=== PATIENT | female | born 1940 | race African-American/Black ===

== ENCOUNTER 2016-10-07 15:18 | Inpatient (IN) | payer MEDICARE, OTHER ==
[~2016-10-07] VITALS: Ht 170.2 cm; Wt 101.6 kg
[~2016-10-07 15:18] MED LIST: AMBIEN5 MG ORAL; ASPIR 8181 MG ORAL; DIOVAN HCT 3201 EAC1 ORAL; DOCUSATE SODIU100 M2 ORAL; FEROSUL325 M1 PO; HYDROCHLOROTHIA25 MG ORAL; JANUVIA100 MG ORAL; METFORMIN HCL1000 M1 ORAL; NORVASC10 MG ORAL; NOVOLOG MI100 UNIT/3 SQ; PREVACID30 M2 ORAL; UNOBMED; VICODIN 5-3001 EACH ORAL; ZOCOR20 M1 ORAL
[2016-10-07] MEDS ORDERED: Aspirin Baby 81mg ORAL ONE (16:00)
[2016-10-07] MEDS ORDERED: Nitroglycerin Subl 0.4mg tab (Bottle Of 25) SL PRN ×2 (16:00→18:30)
--- NOTE | 2016-10-07 16:08 | Emergency Room Report ---
History of Present Illness General Chief Complaint: Hypertension Source: Patient, EMS Present Illness HPI Patient is a 76-year-old female who presented after increased blood pressure from a doctor's office. Patient noted to have elevated blood pressure. She reported having a moderate headache. Patient states that she takes medications for blood pressure. She also is diabetic. Patient noted to have prior history of congestive heart failure. She reported having some chest pressure. Her primary care physician is Dr. Terjo. Allergies: Coded Allergies: CODEINE (Verified Allergy, Mild, Itching, 08/26/13) SULFA (SULFONAMIDE ANTIBIOTICS) (Verified Adverse Reaction, Mild, 08/26/13) VOMIT Patient History Past Medical History: see triage record Reviewed Nursing Documentation: PMH: Agreed, PSxH: Agreed Nursing Documentation-PMH Past Medical History: No History, Except For Hx Hypertension: Yes Hx Diabetes: Yes Hx Cancer: No Hx Gastrointestinal Problems: Yes Hx Neurological Problems: No Review of Systems All Other Systems: negative except mentioned in HPI Physical Exam Vital Signs Date Time Temp Pulse Resp B/P Pulse Ox O2 Delivery O2 Flow Rate FiO2 10/07/16 15:19 98.2 75 18 189/80 99 Room Air Sp02 EP Interpretation: reviewed, normal General Appearance: normal inspection, well appearing, no apparent distress, alert, GCS 15 Head: atraumatic ENT: normal ENT inspection, hearing grossly normal, normal voice Neck: normal inspection, full range of motion, supple, no bony tend Respiratory: normal inspection, lungs clear, normal breath sounds, no respiratory distress, no retraction, no wheezing Cardiovascular #1: regular rate, rhythm, no edema Gastrointestinal: normal inspection, normal bowel sounds, non tender, soft, no guarding, no hernia Genitourinary: no CVA tenderness Musculoskeletal: normal inspection, back normal, normal range of motion Neurologic: normal inspection, alert, oriented x3, responsive, 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 Differential diagnosis included but was not limited to acute coronary syndrome, pulmonary embolism, pneumonia, aortic dissection, shingles, pneumothorax, aortic dissection, esophageal rupture, pericarditis. Because of complexity of patient's case laboratory testing and imaging studies were ordered.EKG interpreted by me showed normal sinus rhythm with a rate of [address] there were [address] acute [address] or T wave changes noted. Patient noted to have onset of worsening chest pain. The patient was given Norvasc as well as nitroglycerin. The patient was also given aspirin Lasix.Dr. Emre Trejo was contacted for inpatient management Labs Test 10/07/16 16:23 White Blood Count 4.4 K/UL (4.8-10.8) Red Blood Count 3.79 M/UL (4.20-5.40) Hemoglobin 12.2 G/DL (12.0-16.0) Hematocrit 35.8 % (37.0-47.0) Mean Corpuscular Volume 94 FL (80-99) Mean Corpuscular Hemoglobin 32.1 PG (27.0-31.0) Mean Corpuscular Hemoglobin Concent 34.0 G/DL (32.0-36.0) Red Cell Distribution Width 13.1 % (11.6-14.8) Platelet Count 205 K/UL (150-450) Mean Platelet Volume 6.6 FL (6.5-10.1) Neutrophils (%) (Auto) 51.5 % (45.0-75.0) Lymphocytes (%) (Auto) 37.5 % (20.0-45.0) Monocytes (%) (Auto) 6.7 % (1.0-10.0) Eosinophils (%) (Auto) 2.7 % (0.0-3.0) Basophils (%) (Auto) 1.7 % (0.0-2.0) Prothrombin Time 9.6 SEC (9.30-11.50) Prothromb Time International Ratio 0.9 (0.9-1.1) Activated Partial Thromboplast Time 24 SEC (23-33) Sodium Level 141 mEQ/L (135-145) Potassium Level 4.4 mEQ/L (3.4-4.9) Chloride Level 99 mEQ/L (98-107) Carbon Dioxide Level 24 mEQ/L (20-30) Anion Gap 18 (5-15) Blood Urea Nitrogen 17 mg/dL (7-23) Creatinine 0.9 mg/dL (0.5-0.9) Estimat Glomerular Filtration Rate mL/min (>60) Glucose Level 184 mg/dL (74-106) Calcium Level 9.7 mg/dL (8.6-10.2) Total Bilirubin 0.2 mg/dL (0.0-1.2) Aspartate Amino Transf (AST/SGOT) 17 U/L (5-40) Alanine Aminotransferase (ALT/SGPT) 16 U/L (3-33) Alkaline Phosphatase 92 U/L (35-104) Total Creatine Kinase 121 U/L (26-140) Creatine Kinase MB 2.5 ng/mL (< 3.8) Creatine Kinase MB Relative Index 2.0 Troponin I < 0.30 ng/mL (<=0.30) Pro-B-Type Natriuretic Peptide 47 pg/mL (0-125) Total Protein 7.3 g/dL (6.6-8.7) Albumin 4.1 g/dL (3.5-5.2) Globulin 3.2 g/dL Albumin/Globulin Ratio 1.2 (1.0-2.7) EKG Diagnostic Results Rate: normal Rhythm: NSR Chest X-Ray Diagnostic Results EP Interpretation: Yes Findings: no consolidation, no effusion, no pneumothorax, no acute cardiopulmonary disease Number of Views: 1 Last Vital Signs Date Time Temp Pulse Resp B/P Pulse Ox O2 Delivery O2 Flow Rate FiO2 10/07/16 15:52 70 188/62 10/07/16 15:19 98.2 18 99 Room Air Status: unchanged Disposition: ADMITTED INPATIENT Condition: Serious Anthony Scott October 07, 2016 16:08
[2016-10-07 16:15] VITALS: BP 164/60
[2016-10-07 16:32] VITALS: BP 168/64
--- NOTE | 2016-10-07 16:52 | Diagnostic Imaging Report ---
Indication: Headache Technique: Contiguous 5 mm thick transaxial imaging of the head obtained in a Siemens Sensation [address] scanner. Soft tissue and bone windows generated. Total Dose length Product (DLP): [address] Dose Index Volume (CTDIvol): 70.38 mGy Comparison: 08/26/13 Findings: Dilatation of the lateral ventricles, fourth ventricle and third ventricle noted. Only minimal atrophy is present. Findings are unchanged from the last study. One should consider possibility of communicating hydrocephalus (NPH). There is no mass effect or edema or acute hemorrhage identified within the brain. Paranasal sinuses are clear. Impression: Disproportionate ventriculomegaly. One should consider the possibility of communicating hydrocephalus. No change compared to the previous exam The CT scanner at [facility] is accredited by the [employer] [place] [employer] and the scans are performed using dose optimization techniques as appropriate to a performed exam including Automatic Exposure control.
[2016-10-07 16:59] LABS: BASOPHILS % (AUTO) 1.7 % (0.0-2.0); EOSINOPHILS % (AUTO) 2.7 % (0.0-3.0); LYMPHOCYTES % (AUTO) 37.5 % (20.0-45.0); MEAN CORPUSCULAR HEMOGLOBIN 32.1 PG (27.0-31.0); MEAN CORPUSCULAR VOLUME 94 FL (80-99); MEAN PLATELET VOLUME 6.6 FL (6.5-10.1); MONOCYTES % (AUTO) 6.7 % (1.0-10.0); NEUTROPHILS % (AUTO) 51.5 % (45.0-75.0); PLATELET COUNT 205 K/UL (150-450); RED BLOOD COUNT 3.79 M/UL (4.20-5.40); RED CELL DISTRIBUTION WIDTH 13.1 % (11.6-14.8); WHITE BLOOD COUNT 4.4 K/UL (4.8-10.8)
[2016-10-07 17:06] LABS: INR 0.9 (0.9-1.1); PROTHROMBIN TIME 9.6 SEC (9.30-11.50)
[2016-10-07 17:11] LABS: TROPONIN I < 0.30 ng/mL (<=0.30)
[2016-10-07 17:17] LABS: ALANINE AMINOTRANSFERASE 16 U/L (3-33); ALBUMIN/GLOBULIN RATIO 1.2 (1.0-2.7); ANION GAP 18 (5-15); ASPARTATE AMINO TRANSFERASE 17 U/L (5-40); CALCIUM 9.7 mg/dL (8.6-10.2); CARBON DIOXIDE 24 mEQ/L (20-30); CHLORIDE 99 mEQ/L (98-107); CREATININE 0.9 mg/dL (0.5-0.9); HEMOLYSIS 3; POTASSIUM 4.4 mEQ/L (3.4-4.9); SODIUM 141 mEQ/L (135-145); TOTAL PROTEIN 7.3 g/dL (6.6-8.7)
[2016-10-07 17:27] LABS: CKMB 2.5 ng/mL (< 3.8)
[2016-10-07 17:30] VITALS: BP 163/76
[2016-10-07] MEDS ORDERED: DuoNeb 0.5-3(2.5)mg/3ml neb HHN PRN (18:30)
[2016-10-07] MEDS ORDERED: Diltiazem 25mg/5ml IV PRN (18:30)
[2016-10-07] MEDS ORDERED: Miralax 17gm pkt ORAL PRN (18:30)
[2016-10-07 19:00] VITALS: BP 160/66
[2016-10-07 20:17] VITALS: BP 182/80
[2016-10-07] MEDS: Enalaprilat 2.5mg/2ml Inj IV PRN (21:45)
[2016-10-07] MEDS: Heparin 5000 units/ml inj SUBQ SCH (21:48)
--- NOTE | 2016-10-07 23:49 | Consultation ---
History of Present Illness General Date patient seen: October 07, 2016 Chief Complaint: Hypertension Referring physician: dr Trejo Reason for Consultation: dyspnea Present Illness HPI 76-year-old female with hx of HTN, DM, CHF presented to ER with CC of increased blood pressure from a doctor's office. She reported having a moderate headache. Patient states that she takes medications for blood pressure. She reported having some chest pressure. Her systolic BP was 200. Her CXR showed bilateral pulmonary edema. Allergies: Coded Allergies: CODEINE (Verified Allergy, Mild, Itching, 08/26/13) SULFA (SULFONAMIDE ANTIBIOTICS) (Verified Adverse Reaction, Mild, 08/26/13) VOMIT Medication History Scheduled Amlodipine Besylate (Norvasc), 10 MG ORAL DAILY, (Reported) Aspirin* (Aspir 81*), 81 MG ORAL DAILY, (Reported) Docusate Sodium (Docusate Sodium), 100 MG ORAL BID, (Reported) Ferrous Sulfate (Ferosul), 325 MG PO BID, (Reported) Hydrochlorothiazide* (Hydrochlorothiazide*), 25 MG ORAL DAILY, (Reported) Insuln Asp Prt/Insulin Aspart (Novolog Mix 70-30 Flexpen Syrn), 40 UNIT SQ BEFORE BREAKFAST, (Reported) Insuln Asp Prt/Insulin Aspart (Novolog Mix 70-30 Flexpen Syrn), 30 UNIT SQ BEFORE DINNER, (Reported) Lansoprazole* (Prevacid*), 30 MG ORAL DAILY, (Reported) Metformin Hcl* (Metformin Hcl*), 1,000 MG ORAL TID, (Reported) Simvastatin (Zocor), 20 MG ORAL BEDTIME, (Reported) Sitagliptin (Januvia), 100 MG ORAL BEFORE BREAKFAST, (Reported) Valsartan/Hydrochlorothiazide 320-25MG (Diovan Hct 320-25 Mg Tablet), 1 TAB ORAL DAILY, (Reported) Scheduled PRN Hydrocodone Bit/Acetaminophen (Vicodin 5-300 Mg Tablet), 1 TAB ORAL Q4H PRN for For Pain, (Reported) Zolpidem Tartrate* (Ambien*), 5 MG ORAL BEDTIME PRN for Insomnia, (Reported) Miscellaneous Medications Unable to Obtain Medications (Unable To Obtain Meds), (Reported) Patient History Healthcare decision maker Resuscitation status Full Code Advanced Directive on File Past Medical/Surgical History Past Medical/Surgical History: (1) Diabetes mellitus (2) CHF (congestive heart failure) Review of Systems All Other Systems: negative except mentioned in HPI Physical Exam General Appearance: WD/WN Lines, tubes and drains: peripheral HEENT: normocephalic, atraumatic Neck: non-tender, normal alignment Respiratory/Chest: chest wall non-tender, lungs clear Cardiovascular/Chest: normal peripheral pulses, normal rate Abdomen: normal bowel sounds Genitourinary/Rectal: normal genital exam Extremities: normal range of motion, non-tender Skin Exam: normal pigmentation Last 24 Hour Vital Signs Date Time Temp Pulse Resp B/P Pulse Ox O2 Delivery O2 Flow Rate FiO2 10/07/16 21:45 181/68 10/07/16 20:17 97.0 63 19 182/80 97 Room Air 10/07/16 19:32 68 17 152/58 99 Room Air 10/07/16 19:00 97.8 88 22 160/66 100 Room Air 10/07/16 17:30 98.0 63 18 163/76 100 Room Air 10/07/16 16:32 98.0 70 18 168/64 100 Room Air 10/07/16 16:17 70 18 Room Air 98 10/07/16 16:15 98.0 70 18 164/60 100 Room Air 10/07/16 16:05 188/62 10/07/16 15:52 70 188/62 10/07/16 15:19 98.2 75 18 189/80 99 Room Air Laboratory Tests Test 10/07/16 16:23 White Blood Count 4.4 K/UL (4.8-10.8) L Red Blood Count 3.79 M/UL (4.20-5.40) L Hemoglobin 12.2 G/DL (12.0-16.0) Hematocrit 35.8 % (37.0-47.0) L Mean Corpuscular Volume 94 FL (80-99) Mean Corpuscular Hemoglobin 32.1 PG (27.0-31.0) H Mean Corpuscular Hemoglobin Concent 34.0 G/DL (32.0-36.0) Red Cell Distribution Width 13.1 % (11.6-14.8) Platelet Count 205 K/UL (150-450) Mean Platelet Volume 6.6 FL (6.5-10.1) Neutrophils (%) (Auto) 51.5 % (45.0-75.0) Lymphocytes (%) (Auto) 37.5 % (20.0-45.0) Monocytes (%) (Auto) 6.7 % (1.0-10.0) Eosinophils (%) (Auto) 2.7 % (0.0-3.0) Basophils (%) (Auto) 1.7 % (0.0-2.0) Prothrombin Time 9.6 SEC (9.30-11.50) Prothromb Time International Ratio 0.9 (0.9-1.1) Activated Partial Thromboplast Time 24 SEC (23-33) Sodium Level 141 mEQ/L (135-145) Potassium Level 4.4 mEQ/L (3.4-4.9) Chloride Level 99 mEQ/L (98-107) Carbon Dioxide Level 24 mEQ/L (20-30) Anion Gap 18 (5-15) H Blood Urea Nitrogen 17 mg/dL (7-23) Creatinine 0.9 mg/dL (0.5-0.9) Estimat Glomerular Filtration Rate mL/min (>60) Glucose Level 184 mg/dL (74-106) H Calcium Level 9.7 mg/dL (8.6-10.2) Total Bilirubin 0.2 mg/dL (0.0-1.2) Aspartate Amino Transf (AST/SGOT) 17 U/L (5-40) Alanine Aminotransferase (ALT/SGPT) 16 U/L (3-33) Alkaline Phosphatase 92 U/L (35-104) Total Creatine Kinase 121 U/L (26-140) Creatine Kinase MB 2.5 ng/mL (< 3.8) Creatine Kinase MB Relative Index 2.0 Troponin I < 0.30 ng/mL (<=0.30) Pro-B-Type Natriuretic Peptide 47 pg/mL (0-125) Total Protein 7.3 g/dL (6.6-8.7) Albumin 4.1 g/dL (3.5-5.2) Globulin 3.2 g/dL Albumin/Globulin Ratio 1.2 (1.0-2.7) Height (Feet): 5 Height (Inches): 7.00 Weight (Pounds): 232 Medications Current Medications Medications (Trade) Dose Ordered Sig/Hever Route PRN Reason Start Time Stop Time Status Last Admin Dose Admin Acetaminophen (Tylenol) 650 mg Q4H PRN ORAL FEVER 10/07/16 18:30 11/06/16 18:29 10/07/16 21:46 Albuterol/ Ipratropium (DuoNeb 0.5-3(2.5)mg/3ml) 3 ml Q4H PRN HHN Shortness of Breath 10/07/16 18:30 10/12/16 18:29 Amlodipine Besylate (Norvasc) 10 mg DAILY ORAL 10/08/16 09:00 11/07/16 08:59 Aspirin (Ecotrin) 81 mg DAILY ORAL 10/08/16 09:00 11/07/16 08:59 Diltiazem HCl (Cardizem) 10 mg Q1H PRN IV heart rate more than 120, 10/07/16 18:30 11/06/16 18:29 Enalaprilat (Vasotec) 2.5 mg Q6H PRN IV sbp more than 160 10/07/16 18:30 11/06/16 18:29 10/07/16 21:45 Furosemide (Lasix) 40 mg EVERY 8 HOURS IV 10/07/16 22:00 11/06/16 21:59 10/07/16 21:44 Heparin Sodium (Porcine) (Heparin 5000 units/ml) 5,000 units EVERY 12 HOURS SUBQ 10/07/16 21:00 11/06/16 20:59 10/07/16 21:48 Nitroglycerin (Ntg) 0.4 mg Q5M PRN SL Prn Chest Pain 10/07/16 18:30 11/06/16 18:29 Ondansetron HCl (Zofran) 4 mg Q6H PRN IVP Nausea & Vomiting 10/07/16 18:30 11/06/16 18:29 Pantoprazole (Protonix) 40 mg DAILY ORAL 10/08/16 09:00 11/07/16 08:59 Polyethylene Glycol (Miralax) 17 gm DAILYPRN PRN ORAL Constipation 10/07/16 18:30 11/06/16 18:29 Sitagliptin Phosphate (Januvia) 50 mg BEFORE BREAKFAST ORAL 10/08/16 06:30 11/07/16 06:29 Temazepam (Restoril) 15 mg HSPRN PRN ORAL Insomnia 10/07/16 18:30 10/14/16 18:29 Assessment/Plan Problem List: (1) ACS (2) Accelerated hypertension ICD Codes: I10 - Accelerated hypertension SNOMED: 41444129 (3) CHF (congestive heart failure) ICD Codes: I50.9 - Heart failure, unspecified SNOMED: 24660918 (4) Diabetes mellitus ICD Codes: E11.9 - Type 2 diabetes mellitus without complications SNOMED: 73514496 Assessment/Plan serial ekg, troponin echo cardio evaluaiton monitor BP sliding scale diuretics check electrolytes dvt prophylaxis KEYSHA MCKINNEY October 07, 2016 23:49
[2016-10-08] VITALS (8 sets, daily range): BP systolic 123–179; BP diastolic 55–79
[2016-10-08] MEDS: sitaGLIPtin 50mg tab ORAL SCH (06:27)
--- NOTE | 2016-10-08 08:34 | Diagnostic Imaging Report ---
Indication: Dyspnea Comparison: 08/26/13 A single view chest radiograph was obtained. Findings: There is a lucency at the left lung base consistent with a hiatal hernia. Surgical clips are also seen in the lower chest and upper abdomen. The heart is enlarged. Pulmonary vascularity is mildly prominent. Bones are unremarkable. Impression: Possible mild interstitial edema. Please correlate clinically. Hiatal hernia
--- NOTE | 2016-10-08 08:50 | Pulmonology Progress Note ---
Assessment/Plan Problems: (1) ACS (2) Accelerated hypertension (3) CHF (congestive heart failure) (4) Diabetes mellitus Assessment/Plan improving check echo cxr, bnp in am cardio to see sliding scale diabetic diet Subjective ROS Limited/Unobtainable: No Interval Events: dyspnea resolved, c/o head ache Allergies: Coded Allergies: CODEINE (Verified Allergy, Mild, Itching, 08/26/13) SULFA (SULFONAMIDE ANTIBIOTICS) (Verified Adverse Reaction, Mild, 08/26/13) VOMIT Objective Last 24 Hour Vital Signs Date Time Temp Pulse Resp B/P Pulse Ox O2 Delivery O2 Flow Rate FiO2 10/08/16 07:58 97.7 68 18 136/67 100 Room Air 10/08/16 06:25 98.6 10/08/16 05:34 71 148/77 Room Air 10/08/16 04:00 73 10/08/16 03:56 98.6 79 19 144/63 95 Room Air 10/08/16 01:00 135/65 10/08/16 00:07 98.3 69 18 179/79 95 Room Air 10/08/16 00:00 76 10/07/16 21:45 181/68 10/07/16 20:17 97.0 63 19 182/80 97 Room Air 10/07/16 20:00 67 10/07/16 19:32 68 17 152/58 99 Room Air 10/07/16 19:00 97.8 88 22 160/66 100 Room Air 10/07/16 17:30 98.0 63 18 163/76 100 Room Air 10/07/16 16:32 98.0 70 18 168/64 100 Room Air 10/07/16 16:17 70 18 Room Air 98 10/07/16 16:15 98.0 70 18 164/60 100 Room Air 10/07/16 16:05 188/62 10/07/16 15:52 70 188/62 10/07/16 15:19 98.2 75 18 189/80 99 Room Air General Appearance: WD/WN HEENT: normocephalic, atraumatic Respiratory/Chest: chest wall non-tender, lungs clear Cardiovascular: normal peripheral pulses, normal rate Abdomen: normal bowel sounds, no organomegaly Genitourinary: normal external genitalia Neurologic/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 normal Laboratory Tests 10/07/16 16:23: White Blood Count 4.4L, Red Blood Count 3.79L, Hemoglobin 12.2, Hematocrit 35.8L , Mean Corpuscular Volume 94, Mean Corpuscular Hemoglobin 32.1H, Mean Corpuscular Hemoglobin Concent 34.0, Red Cell Distribution Width 13.1, Platelet Count 205, Mean Platelet Volume 6.6, Neutrophils (%) (Auto) 51.5, Lymphocytes (% ) (Auto) 37.5, Monocytes (%) (Auto) 6.7, Eosinophils (%) (Auto) 2.7, Basophils ( %) (Auto) 1.7, Prothrombin Time 9.6, Prothromb Time International Ratio 0.9, Activated Partial Thromboplast Time 24, Sodium Level 141, Potassium Level 4.4, Chloride Level 99, Carbon Dioxide Level 24, Anion Gap 18H, Blood Urea Nitrogen 17, Creatinine 0.9, Estimat Glomerular Filtration Rate , Glucose Level 184H, Calcium Level 9.7, Total Bilirubin 0.2, Aspartate Amino Transf (AST/SGOT) 17, Alanine Aminotransferase (ALT/SGPT) 16, Alkaline Phosphatase 92, Total Creatine Kinase 121, Creatine Kinase MB 2.5, Creatine Kinase MB Relative Index 2.0, Troponin I < 0.30, Pro-B-Type Natriuretic Peptide 47, Total Protein 7.3, Albumin 4.1, Globulin 3.2, Albumin/Globulin Ratio 1.2 Current Medications Medications (Trade) Dose Ordered Sig/Hever Route PRN Reason Start Time Stop Time Status Last Admin Dose Admin Acetaminophen (Tylenol) 650 mg Q4H PRN ORAL FEVER 10/07/16 18:30 11/06/16 18:29 10/08/16 05:26 Albuterol/ Ipratropium (DuoNeb 0.5-3(2.5)mg/3ml) 3 ml Q4H PRN HHN Shortness of Breath 10/07/16 18:30 10/12/16 18:29 Amlodipine Besylate (Norvasc) 10 mg DAILY ORAL 10/08/16 09:00 11/07/16 08:59 Aspirin (Ecotrin) 81 mg DAILY ORAL 10/08/16 09:00 11/07/16 08:59 Diltiazem HCl (Cardizem) 10 mg Q1H PRN IV heart rate more than 120, 10/07/16 18:30 11/06/16 18:29 Enalaprilat (Vasotec) 2.5 mg Q6H PRN IV sbp more than 160 10/07/16 18:30 11/06/16 18:29 10/07/16 21:45 Furosemide (Lasix) 40 mg EVERY 8 HOURS IV 10/07/16 22:00 11/06/16 21:59 10/08/16 05:27 Heparin Sodium (Porcine) (Heparin 5000 units/ml) 5,000 units EVERY 12 HOURS SUBQ 10/07/16 21:00 11/06/16 20:59 10/07/16 21:48 Hydralazine HCl (Apresoline) 20 mg Q4H PRN IV sbp more than 180 10/07/16 23:45 11/06/16 23:44 Nitroglycerin (Ntg) 0.4 mg Q5M PRN SL Prn Chest Pain 10/07/16 18:30 11/06/16 18:29 Ondansetron HCl (Zofran) 4 mg Q6H PRN IVP Nausea & Vomiting 10/07/16 18:30 11/06/16 18:29 Pantoprazole (Protonix) 40 mg DAILY ORAL 10/08/16 09:00 11/07/16 08:59 Polyethylene Glycol (Miralax) 17 gm DAILYPRN PRN ORAL Constipation 10/07/16 18:30 11/06/16 18:29 Sitagliptin Phosphate (Januvia) 50 mg BEFORE BREAKFAST ORAL 10/08/16 06:30 11/07/16 06:29 10/08/16 06:27 Temazepam (Restoril) 15 mg HSPRN PRN ORAL Insomnia 10/07/16 18:30 10/14/16 18:29 KEYSHA MCKINNEY October 08, 2016 08:50
[2016-10-08] MEDS: Aspirin EC 81mg tab ORAL SCH (09:05)
[2016-10-08] MEDS: Heparin 5000 units/ml inj SUBQ SCH ×2 (09:09→21:20)
[2016-10-08 09:26] LABS: EOSINOPHILS % (AUTO) 2.8 % (0.0-3.0); LYMPHOCYTES % (AUTO) 37.6 % (20.0-45.0); MEAN CORPUSCULAR HEMOGLOBIN 29.1 PG (27.0-31.0); MEAN CORPUSCULAR HGB CONC 31.1 G/DL (32.0-36.0); MEAN CORPUSCULAR VOLUME 94 FL (80-99); MEAN PLATELET VOLUME 6.2 FL (6.5-10.1); MONOCYTES % (AUTO) 8.3 % (1.0-10.0); NEUTROPHILS % (AUTO) 50.3 % (45.0-75.0); PLATELET COUNT 259 K/UL (150-450); RED BLOOD COUNT 3.79 M/UL (4.20-5.40); RED CELL DISTRIBUTION WIDTH 13.2 % (11.6-14.8); WHITE BLOOD COUNT 4.1 K/UL (4.8-10.8)
[2016-10-08 09:38] LABS: PROTHROMBIN TIME 10.3 SEC (9.30-11.50)
[2016-10-08 09:40] LABS: CHOLESTEROL 148 mg/dL (< 200); CHOLESTEROL/HDL RATIO 2.7 (3.3-4.4); CRP QUANT < 0.3 mg/dL (< 0.5); HEMOLYSIS 3; LDL CHOLESTEROL (CALC.) 65 mg/dL (60-99); TROPONIN I < 0.30 ng/mL (<=0.30)
[2016-10-08 09:50] LABS: THYROID STIMULATING HORMONE 0.874 uIU/mL (0.300-4.500)
[2016-10-08] MEDS: NovoLOG Insulin Flexpen SUBQ SCH ×3 (11:40→21:19)
--- NOTE | 2016-10-08 14:14 | Cardiology Report ---
APPROVED REPORT EXAM: Two-dimensional and M-mode echocardiogram with Doppler and color Doppler. INDICATION LV function M-Mode DIMENSIONS IVSd1.5 (0.7-1.1cm)Left Atrium (MM)2.6 (1.6-4.0cm) LVDd1.9 (3.5-5.6cm)Aortic Root4.4 (2.0-3.7cm) PWd3.2 (0.7-1.1cm)Aortic Cusp Exc.2.0 (1.5-2.0cm) LVDs1.7 (2.5-4.0cm) PWs2.1 cm Technically difficult study due to poor acoustical windows. Normal left ventricular chamber size, systolic function and wall motion to extent visualized. Left ventricular ejection fraction estimated to be 65 %. Mild left ventricular hypertrophy. Anterior Echo-free space, may be due to pericardial fat or effusion. Mild bi-atrial enlargement. Right ventricular chamber size is within normal limits. Focal aortic valve sclerosis with adequate cusp excursion. Thickened mitral valve leaflets with normal excursion. Mitral annulus and aortic root calcification. Pulmonic valve not well visualized. Normal tricuspid valve structure. IVC at normal size with physiologic collapse. A color flow and spectral Doppler study was performed and revealed: Trace mitral regurgitation. Mitral diastolic velocities suggest reduced left ventricular relaxation c/w mild LV diastolic dysfunction (Grade I). Trace tricuspid regurgitation. Tricuspid systolic velocities suggests peak right ventricular systolic pressure of 16 mmHg.
--- NOTE | 2016-10-08 14:26 | Cardiology Report ---
APPROVED REPORT EKG Measurement Heart [id number] Normal sinus rhythm with sinus arrhythmia Possible Left atrial enlargement Borderline ECG
--- NOTE | 2016-10-08 16:13 | History & Physical ---
History and Physical History & Physicial Dictated for Int Med-Dr Trejo no. [id number]. MIGNON FERRELL October 08, 2016 16:13
--- NOTE | 2016-10-08 20:39 | Cardiology Progress Note ---
Assessment/Plan Assessment/Plan The patient is seen and examined, full consult note is dictated. Objective Last 24 Hour Vital Signs Date Time Temp Pulse Resp B/P Pulse Ox O2 Delivery O2 Flow Rate FiO2 10/08/16 16:09 97.0 62 18 131/65 96 Room Air 10/08/16 16:00 64 10/08/16 12:00 69 10/08/16 11:56 97.5 67 18 145/55 96 Room Air 10/08/16 09:06 68 136/67 10/08/16 08:00 62 10/08/16 07:58 97.7 68 18 136/67 100 Room Air 10/08/16 06:25 98.6 10/08/16 05:34 71 148/77 Room Air 10/08/16 04:00 73 10/08/16 03:56 98.6 79 19 144/63 95 Room Air 10/08/16 01:00 135/65 10/08/16 00:07 98.3 69 18 179/79 95 Room Air 10/08/16 00:00 76 10/07/16 21:45 181/68 Intake and Output 10/07/16 10/08/16 19:00 07:00 # Voids 2 2 # Bowel Movements 3 Laboratory Tests Test 10/08/16 09:10 White Blood Count 4.1 K/UL (4.8-10.8) L Red Blood Count 3.79 M/UL (4.20-5.40) L Hemoglobin 11.0 G/DL (12.0-16.0) L Hematocrit 35.5 % (37.0-47.0) L Mean Corpuscular Volume 94 FL (80-99) Mean Corpuscular Hemoglobin 29.1 PG (27.0-31.0) Mean Corpuscular Hemoglobin Concent 31.1 G/DL (32.0-36.0) L Red Cell Distribution Width 13.2 % (11.6-14.8) Platelet Count 259 K/UL (150-450) Mean Platelet Volume 6.2 FL (6.5-10.1) L Neutrophils (%) (Auto) 50.3 % (45.0-75.0) Lymphocytes (%) (Auto) 37.6 % (20.0-45.0) Monocytes (%) (Auto) 8.3 % (1.0-10.0) Eosinophils (%) (Auto) 2.8 % (0.0-3.0) Basophils (%) (Auto) 1.0 % (0.0-2.0) Prothrombin Time 10.3 SEC (9.30-11.50) Prothromb Time International Ratio 1.0 (0.9-1.1) Activated Partial Thromboplast Time 26 SEC (23-33) Troponin I < 0.30 ng/mL (<=0.30) C-Reactive Protein, Quantitative < 0.3 mg/dL (< 0.5) Triglycerides Level 139 mg/dL (< 150) Cholesterol Level 148 mg/dL (< 200) LDL Cholesterol 65 mg/dL (60-99) HDL Cholesterol 55 mg/dL (> 60) Cholesterol/HDL Ratio 2.7 (3.3-4.4) L Thyroid Stimulating Hormone (TSH) 0.874 uIU/mL (0.300-4.500) DHAVAL CHRISTIANSON October 08, 2016 20:39
[2016-10-08] MEDS ORDERED: Ketorolac 30mg Inj IV PRN (21:45)
--- NOTE | 2016-10-08 22:31 | History and Physical Report ---
DATE OF ADMISSION: 10/07/[address] Trejo. CHIEF COMPLAINT: The patient is a 76-year-old female, presents with chief complaint of elevated blood pressure. HISTORY OF PRESENT ILLNESS: The patient states that she has been under a lot of stress at home. The patient takes blood pressure medications, however, she is not sure of the name or the dosages. The patient presented to Ear, Nose and Throat appointment. The patient was found to have blood pressure elevated to 205/90. The patient presented to [place] emergency room. The patient was admitted for uncontrolled hypertension. PAST MEDICAL HISTORY: Significant for 1. Hypertension. 2. Diabetes type 2. 3. Degenerative disk disease of the lumbar spine. 4. Radiculopathy. 5. Gastroesophageal reflux disease. 6. Morbid obesity. 7. History of duodenal ulcer. PAST SURGICAL HISTORY: Significant for 1. Cholecystectomy. 2. Appendectomy. 3. Hiatal hernia repair. 4. Vagotomy. 5. Total hysterectomy. MEDICATIONS: Current medications 1. Amlodipine 10 mg one tablet p.o. daily. 2. Aspirin 81 mg one tablet p.o. daily. 3. Iron sulfate 325 mg one tablet p.o. daily. 4. Hydrochlorothiazide 25 mg one tablet p.o. daily. 5. Vicodin 5/300 mg one tablet p.o. q.4 h. p.r.n. pain. 6. NovoLog 70/30, 40 units subcutaneously every morning. 7. Prevacid 30 mg one tablet p.o. daily. 8. Metformin 1000 mg one tablet p.o. twice daily. 9. Simvastatin 20 mg one tablet p.o. at bedtime. 10. Januvia 100 mg one tablet p.o. every morning. 11. Valsartan/hydrochlorothiazide 320/25 mg one tablet p.o. daily. ALLERGIES: Codeine and sulfa. SOCIAL HISTORY: The patient is a . The patient denies tobacco or alcohol use. PHYSICAL EXAMINATION: GENERAL: The patient is well developed and well nourished, slightly obese female, in no apparent distress. VITAL SIGNS: Temperature 98.6 degrees, respirations 18, pulse 69, and blood pressure 179/79. HEENT: Eyes, pupils are equal and responsive to light and accommodation. Extraocular movements are intact. NECK: Supple without lymphadenopathy. CHEST: Lungs are clear to auscultation bilaterally without wheezes or rales. CARDIOVASCULAR: Regular rate. S1 and S2 normal without murmurs, rubs, or gallops. ABDOMEN: Soft, nontender, and nondistended. Positive bowel sounds. No evidence of hepatosplenomegaly. Currently, no rebound or guarding. EXTREMITIES: There is no clubbing, cyanosis, or edema. RECTAL/GENITAL: Refused. NEUROLOGIC: Cranial nerves II through XII are grossly intact without focal deficits. Motor strength is 5/5 bilaterally. Deep tendon reflexes are 2+ plantar. LABORATORY AND DIAGNOSTIC DATA: WBC 4.4, hemoglobin 12.2, hematocrit 35.8, and platelets 205,000. Sodium 141, potassium 4.4, chloride 99, CO2 24, BUN 17, creatinine 0.9 and glucose 184. Troponin less than 0.3. ASSESSMENT: This is a 76-year-old female 1. Uncontrolled hypertension. 2. Diabetes type 2. 3. Degenerative disc disease of spine. 4. Radiculopathy of the lumbar spine. 5. Gastroesophageal reflux disease. 6. Morbid obesity. 7. History of duodenal ulcer. TREATMENT: 1. Uncontrolled hypertension. Cardiology consultation per Dr. Seun Kaye. The patient's elevated blood pressure may be secondary to stress versus uncontrolled hypertension. The patient will be started on her usual antihypertensive medications. We will follow recommendation of Cardiology. 2. Diabetes type 2. The patient has been placed on a NovoLog sliding scale. 3. Degenerative disc disease of the spine. 4. Radiculopathy. 5. Gastroesophageal reflux disease. 6. Morbid obesity. 7. History of peptic ulcer disease. Isael Hutton M.D. DR: DANDRE JOB#: [id number] CC:
[2016-10-09] VITALS: BP 116/55
[2016-10-09] MEDS: NovoLOG Insulin Flexpen SUBQ SCH ×4 (00:02→16:49)
[2016-10-09 04:00] VITALS: BP 131/56
[2016-10-09] MEDS: sitaGLIPtin 50mg tab ORAL SCH (05:56)
[2016-10-09 07:55] VITALS: BP 138/71
[2016-10-09 08:18] LABS: BASOPHILS % (AUTO) 0.8 % (0.0-2.0); EOSINOPHILS % (AUTO) 4.4 % (0.0-3.0); LYMPHOCYTES % (AUTO) 37.2 % (20.0-45.0); MEAN CORPUSCULAR HEMOGLOBIN 29.3 PG (27.0-31.0); MEAN CORPUSCULAR HGB CONC 31.5 G/DL (32.0-36.0); MEAN CORPUSCULAR VOLUME 93 FL (80-99); MEAN PLATELET VOLUME 6.4 FL (6.5-10.1); MONOCYTES % (AUTO) 8.6 % (1.0-10.0); NEUTROPHILS % (AUTO) 49.1 % (45.0-75.0); PLATELET COUNT 278 K/UL (150-450); RED BLOOD COUNT 4.12 M/UL (4.20-5.40); RED CELL DISTRIBUTION WIDTH 12.9 % (11.6-14.8); WHITE BLOOD COUNT 4.2 K/UL (4.8-10.8)
[2016-10-09 08:37] LABS: ALANINE AMINOTRANSFERASE 16 U/L (3-33); ANION GAP 15 (5-15); ASPARTATE AMINO TRANSFERASE 17 U/L (5-40); CALCIUM 9.5 mg/dL (8.6-10.2); CARBON DIOXIDE 27 mEQ/L (20-30); CHLORIDE 95 mEQ/L (98-107); CREATININE 1.2 mg/dL (0.5-0.9); HEMOLYSIS 1; SODIUM 137 mEQ/L (135-145); TOTAL PROTEIN 7.1 g/dL (6.6-8.7); TROPONIN I < 0.30 ng/mL (<=0.30)
[2016-10-09] MEDS: Aspirin EC 81mg tab ORAL SCH (08:52)
[2016-10-09] MEDS: Heparin 5000 units/ml inj SUBQ SCH ×2 (08:54→23:56)
--- NOTE | 2016-10-09 11:26 | Diagnostic Imaging Report ---
Indication: Dyspnea Comparison: 10/07/16 A single view chest radiograph was obtained. Findings: Hiatal hernia is present. The heart is enlarged. Lungs are clear. Bones are unremarkable. Surgical clips in the upper abdomen noted. Impression: Hiatal hernia. No acute findings
[2016-10-09 11:50] VITALS: BP 160/71
--- NOTE | 2016-10-09 12:06 | Internal Med Progress Note ---
Subjective Date of Service: October 09, 2016 Physician Name Mignon Ferrell Attending Physician Emre Trejo MD Current Medications Medications (Trade) Dose Ordered Sig/Hever Route PRN Reason Start Time Stop Time Status Last Admin Dose Admin Acetaminophen (Tylenol) 650 mg Q4H PRN ORAL FEVER 10/07/16 18:30 11/06/16 18:29 10/08/16 05:26 Albuterol/ Ipratropium (DuoNeb 0.5-3(2.5)mg/3ml) 3 ml Q4H PRN HHN Shortness of Breath 10/07/16 18:30 10/12/16 18:29 Amlodipine Besylate (Norvasc) 10 mg DAILY ORAL 10/08/16 09:00 11/07/16 08:59 10/09/16 08:53 Aspirin (Ecotrin) 81 mg DAILY ORAL 10/08/16 09:00 11/07/16 08:59 10/09/16 08:52 Dextrose (Dextrose 50%) STAT PRN IV Hypoglycemia 10/08/16 09:00 11/07/16 08:59 Diltiazem HCl (Cardizem) 10 mg Q1H PRN IV heart rate more than 120, 10/07/16 18:30 11/06/16 18:29 Enalaprilat (Vasotec) 2.5 mg Q6H PRN IV sbp more than 160 10/07/16 18:30 11/06/16 18:29 10/07/16 21:45 Furosemide (Lasix) 40 mg EVERY 8 HOURS IV 10/07/16 22:00 11/06/16 21:59 10/09/16 05:56 Heparin Sodium (Porcine) (Heparin 5000 units/ml) 5,000 units EVERY 12 HOURS SUBQ 10/07/16 21:00 11/06/16 20:59 10/09/16 08:54 Hydralazine HCl (Apresoline) 20 mg Q4H PRN IV sbp more than 180 10/07/16 23:45 11/06/16 23:44 Ibuprofen (Advil) 400 mg Q8H PRN ORAL Mild Pain (Pain Scale 1-3) 10/09/16 07:26 11/07/16 13:14 Insulin Aspart (NovoLOG) BEFORE MEALS AND HS SUBQ 10/08/16 11:30 11/07/16 11:29 10/09/16 06:02 Ketorolac Tromethamine (Toradol 30mg) 15 mg Q8HR PRN IV Moderate Pain (Pain Scale 4-6) 10/08/16 21:45 10/13/16 21:44 Nitroglycerin (Ntg) 0.4 mg Q5M PRN SL Prn Chest Pain 10/07/16 18:30 11/06/16 18:29 Ondansetron HCl (Zofran) 4 mg Q6H PRN IVP Nausea & Vomiting 10/07/16 18:30 11/06/16 18:29 Pantoprazole (Protonix) 40 mg DAILY ORAL 10/08/16 09:00 11/07/16 08:59 10/09/16 08:53 Polyethylene Glycol (Miralax) 17 gm DAILYPRN PRN ORAL Constipation 10/07/16 18:30 11/06/16 18:29 10/09/16 05:55 Sitagliptin Phosphate (Januvia) 50 mg BEFORE BREAKFAST ORAL 10/08/16 06:30 11/07/16 06:29 10/09/16 05:56 Temazepam (Restoril) 15 mg HSPRN PRN ORAL Insomnia 10/07/16 18:30 10/14/16 18:29 Allergies: Coded Allergies: CODEINE (Verified Allergy, Mild, Itching, 08/26/13) SULFA (SULFONAMIDE ANTIBIOTICS) (Verified Adverse Reaction, Mild, 08/26/13) VOMIT ROS Limited/Unobtainable: No Constitutional: Reports: no symptoms HEENT: Reports: no symptoms Cardiovascular: Reports: no symptoms Respiratory: Reports: no symptoms Gastrointestinal/Abdominal: Reports: no symptoms Genitourinary: Reports: no symptoms Neurologic/Psychiatric: Reports: no symptoms Subjective 76 YO F admitted with uncontrolled hypertension. Cover for Molly Del Rio-Dr Trejo. Objective Last Vital Signs Date Time Temp Pulse Resp B/P Pulse Ox O2 Delivery O2 Flow Rate FiO2 10/09/16 11:50 97.7 63 18 160/71 99 Room Air 10/07/16 16:17 98 Laboratory Tests Test 10/09/16 08:00 White Blood Count 4.2 K/UL (4.8-10.8) L Red Blood Count 4.12 M/UL (4.20-5.40) L Hemoglobin 12.1 G/DL (12.0-16.0) Hematocrit 38.4 % (37.0-47.0) Mean Corpuscular Volume 93 FL (80-99) Mean Corpuscular Hemoglobin 29.3 PG (27.0-31.0) Mean Corpuscular Hemoglobin Concent 31.5 G/DL (32.0-36.0) L Red Cell Distribution Width 12.9 % (11.6-14.8) Platelet Count 278 K/UL (150-450) Mean Platelet Volume 6.4 FL (6.5-10.1) L Neutrophils (%) (Auto) 49.1 % (45.0-75.0) Lymphocytes (%) (Auto) 37.2 % (20.0-45.0) Monocytes (%) (Auto) 8.6 % (1.0-10.0) Eosinophils (%) (Auto) 4.4 % (0.0-3.0) H Basophils (%) (Auto) 0.8 % (0.0-2.0) Sodium Level 137 mEQ/L (135-145) Potassium Level 4.0 mEQ/L (3.4-4.9) Chloride Level 95 mEQ/L (98-107) L Carbon Dioxide Level 27 mEQ/L (20-30) Anion Gap 15 (5-15) Blood Urea Nitrogen 23 mg/dL (7-23) Creatinine 1.2 mg/dL (0.5-0.9) H Estimat Glomerular Filtration Rate mL/min (>60) Glucose Level 299 mg/dL (74-106) H Calcium Level 9.5 mg/dL (8.6-10.2) Magnesium Level 1.6 mg/dL (1.7-2.5) L Total Bilirubin 0.3 mg/dL (0.0-1.2) Aspartate Amino Transf (AST/SGOT) 17 U/L (5-40) Alanine Aminotransferase (ALT/SGPT) 16 U/L (3-33) Alkaline Phosphatase 78 U/L (35-104) Troponin I < 0.30 ng/mL (<=0.30) Pro-B-Type Natriuretic Peptide 20 pg/mL (0-125) Total Protein 7.1 g/dL (6.6-8.7) Albumin 3.7 g/dL (3.5-5.2) Globulin 3.4 g/dL Albumin/Globulin Ratio 1.0 (1.0-2.7) Intake and Output 10/08/16 10/09/16 19:00 07:00 Intake Total 600 ml 360 ml Output Total 1250 ml Balance -650 ml 360 ml Intake Oral 600 ml 360 ml Output Urine Total 1250 ml Objective General: obese; alert, cooperative, no distress, appears stated age Head: normocephalic, without obvious abnormality, atraumatic Eyes: conjunctivae/corneas clear. PERRL, EOM's intact Throat: lips, mucosa, and tongue normal. MMM Neck: supple, symmetrical, trachea midline, and no JVD Lungs: clear to auscultation bilaterally Heart: regular rate and rhythm, S1, S2 normal, no murmur, click, rub or gallop Abdomen: soft, non-tender, non-distended, bowel sounds normal; no masses or organomegaly Extremities: extremities normal, atraumatic, no cyanosis or edema Pulses: 2+ and symmetric Skin: skin color, texture, turgor normal; no rashes or lesions Neurologic: grossly normal, no focal deficits Assessment/Plan Problem List: (1) PUD (peptic ulcer disease) (2) GERD (gastroesophageal reflux disease) Assessment & Plan: Cont protonix. (3) DDD (degenerative disc disease), lumbar (4) Radiculopathy of lumbar region (5) Accelerated hypertension Assessment & Plan: Cont hydralazine, cardizem and norvasc per cardiology. (6) Diabetes mellitus Assessment & Plan: Continue novolog sliding scale and januvia Status: progressing MIGNON FERRELL October 09, 2016 12:06
[2016-10-09] MEDS: Enalaprilat 2.5mg/2ml Inj IV PRN (12:09)
--- NOTE | 2016-10-09 12:52 | Pulmonology Progress Note ---
Assessment/Plan Problems: (1) ACS (2) Accelerated hypertension (3) CHF (congestive heart failure) (4) Diabetes mellitus Assessment/Plan improving diuresing well cxr reviewed, much improved check echo cxr, bnp in am cardio to see sliding scale diabetic diet Subjective ROS Limited/Unobtainable: No Interval Events: still has headache Allergies: Coded Allergies: CODEINE (Verified Allergy, Mild, Itching, 08/26/13) SULFA (SULFONAMIDE ANTIBIOTICS) (Verified Adverse Reaction, Mild, 08/26/13) VOMIT Objective Last 24 Hour Vital Signs Date Time Temp Pulse Resp B/P Pulse Ox O2 Delivery O2 Flow Rate FiO2 10/09/16 12:09 160/71 10/09/16 11:50 97.7 63 18 160/71 99 Room Air 10/09/16 08:53 71 138/71 10/09/16 08:00 72 10/09/16 07:55 97.3 71 18 138/71 100 Room Air 10/09/16 04:00 61 10/09/16 04:00 97.2 65 19 131/56 98 Room Air 10/09/16 00:00 97.3 64 20 116/55 98 Nasal Cannula 10/09/16 00:00 66 10/08/16 20:00 96.6 75 18 123/65 98 Room Air 10/08/16 20:00 70 10/08/16 16:09 97.0 62 18 131/65 96 Room Air 10/08/16 16:00 64 Intake and Output 10/08/16 10/09/16 19:00 07:00 Intake Total 600 ml 360 ml Output Total 1250 ml Balance -650 ml 360 ml Intake Oral 600 ml 360 ml Output Urine Total 1250 ml General Appearance: WD/WN HEENT: normocephalic, atraumatic Respiratory/Chest: chest wall non-tender, lungs clear Cardiovascular: normal peripheral pulses, normal rate Abdomen: normal bowel sounds, soft, non tender Extremities: no cyanosis Neurologic/Psychiatric: 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-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 grossly normal Lymphatic: no neck adenopathy Laboratory Tests 10/09/16 08:00: White Blood Count 4.2L, Red Blood Count 4.12L, Hemoglobin 12.1, Hematocrit 38.4 , Mean Corpuscular Volume 93, Mean Corpuscular Hemoglobin 29.3, Mean Corpuscular Hemoglobin Concent 31.5L, Red Cell Distribution Width 12.9, Platelet Count 278, Mean Platelet Volume 6.4L, Neutrophils (%) (Auto) 49.1, Lymphocytes (%) (Auto) 37.2, Monocytes (%) (Auto) 8.6, Eosinophils (%) (Auto) 4.4H, Basophils (%) (Auto) 0.8, Sodium Level 137, Potassium Level 4.0, Chloride Level 95L, Carbon Dioxide Level 27, Anion Gap 15, Blood Urea Nitrogen 23, Creatinine 1.2H, Estimat Glomerular Filtration Rate , Glucose Level 299H, Calcium Level 9.5, Magnesium Level 1.6L, Total Bilirubin 0.3, Aspartate Amino Transf (AST/SGOT) 17, Alanine Aminotransferase (ALT/SGPT) 16, Alkaline Phosphatase 78, Troponin I < 0.30, Pro-B-Type Natriuretic Peptide 20, Total Protein 7.1, Albumin 3.7, Globulin 3.4, Albumin/Globulin Ratio 1.0 Current Medications Medications (Trade) Dose Ordered Sig/Hever Route PRN Reason Start Time Stop Time Status Last Admin Dose Admin Acetaminophen (Tylenol) 650 mg Q4H PRN ORAL FEVER 10/07/16 18:30 11/06/16 18:29 10/08/16 05:26 Albuterol/ Ipratropium (DuoNeb 0.5-3(2.5)mg/3ml) 3 ml Q4H PRN HHN Shortness of Breath 10/07/16 18:30 10/12/16 18:29 Amlodipine Besylate (Norvasc) 10 mg DAILY ORAL 10/08/16 09:00 11/07/16 08:59 10/09/16 08:53 Aspirin (Ecotrin) 81 mg DAILY ORAL 10/08/16 09:00 11/07/16 08:59 10/09/16 08:52 Dextrose (Dextrose 50%) STAT PRN IV Hypoglycemia 10/08/16 09:00 11/07/16 08:59 Diltiazem HCl (Cardizem) 10 mg Q1H PRN IV heart rate more than 120, 10/07/16 18:30 11/06/16 18:29 Enalaprilat (Vasotec) 2.5 mg Q6H PRN IV sbp more than 160 10/07/16 18:30 11/06/16 18:29 10/09/16 12:09 Furosemide (Lasix) 40 mg EVERY 8 HOURS IV 10/07/16 22:00 11/06/16 21:59 10/09/16 05:56 Heparin Sodium (Porcine) (Heparin 5000 units/ml) 5,000 units EVERY 12 HOURS SUBQ 10/07/16 21:00 11/06/16 20:59 10/09/16 08:54 Hydralazine HCl (Apresoline) 20 mg Q4H PRN IV sbp more than 180 10/07/16 23:45 11/06/16 23:44 Ibuprofen (Advil) 400 mg Q8H PRN ORAL Mild Pain (Pain Scale 1-3) 10/09/16 07:26 11/07/16 13:14 Insulin Aspart (NovoLOG) BEFORE MEALS AND HS SUBQ 10/08/16 11:30 11/07/16 11:29 10/09/16 12:10 Ketorolac Tromethamine (Toradol 30mg) 15 mg Q8HR PRN IV Moderate Pain (Pain Scale 4-6) 10/08/16 21:45 10/13/16 21:44 Nitroglycerin (Ntg) 0.4 mg Q5M PRN SL Prn Chest Pain 10/07/16 18:30 11/06/16 18:29 Ondansetron HCl (Zofran) 4 mg Q6H PRN IVP Nausea & Vomiting 10/07/16 18:30 11/06/16 18:29 Pantoprazole (Protonix) 40 mg DAILY ORAL 10/08/16 09:00 11/07/16 08:59 10/09/16 08:53 Polyethylene Glycol (Miralax) 17 gm DAILYPRN PRN ORAL Constipation 10/07/16 18:30 11/06/16 18:29 10/09/16 05:55 Sitagliptin Phosphate (Januvia) 50 mg BEFORE BREAKFAST ORAL 10/08/16 06:30 11/07/16 06:29 10/09/16 05:56 Temazepam (Restoril) 15 mg HSPRN PRN ORAL Insomnia 10/07/16 18:30 10/14/16 18:29 KEYSHA MCKINNEY October 09, 2016 12:52
[2016-10-09 15:42] VITALS: BP 112/57
[2016-10-09 19:49] VITALS: BP 125/63
[2016-10-09] MEDS ORDERED: Nitroglycerin Subl 0.4mg tab (Bottle Of 25) SL PRN (20:15)
[2016-10-09] MEDS ORDERED: Diltiazem 25mg/5ml IV PRN (20:30)
[2016-10-09] MEDS ORDERED: Ketorolac 30mg Inj IV PRN (21:00)
[2016-10-09] MEDS ORDERED: DuoNeb 0.5-3(2.5)mg/3ml neb HHN PRN (21:00)
[2016-10-09] MEDS ORDERED: Enalaprilat 2.5mg/2ml Inj IV PRN (21:00)
--- NOTE | 2016-10-09 23:56 | Cardiology Progress Note ---
Assessment/Plan Assessment/Plan The patient is seen and examined, full consult note is dictated. Objective Last 24 Hour Vital Signs Date Time Temp Pulse Resp B/P Pulse Ox O2 Delivery O2 Flow Rate FiO2 10/09/16 19:49 98.5 71 19 125/63 98 Room Air 10/09/16 16:00 76 10/09/16 15:42 97.0 68 18 112/57 97 Room Air 10/09/16 12:09 160/71 10/09/16 12:00 69 10/09/16 11:50 97.7 63 18 160/71 99 Room Air 10/09/16 08:53 71 138/71 10/09/16 08:00 72 10/09/16 07:55 97.3 71 18 138/71 100 Room Air 10/09/16 04:00 61 10/09/16 04:00 97.2 65 19 131/56 98 Room Air 10/09/16 00:00 97.3 64 20 116/55 98 Nasal Cannula 10/09/16 00:00 66 Intake and Output 10/08/16 10/09/16 19:00 07:00 Intake Total 600 ml 360 ml Output Total 1250 ml Balance -650 ml 360 ml Intake Oral 600 ml 360 ml Output Urine Total 1250 ml Laboratory Tests Test 10/09/16 08:00 White Blood Count 4.2 K/UL (4.8-10.8) L Red Blood Count 4.12 M/UL (4.20-5.40) L Hemoglobin 12.1 G/DL (12.0-16.0) Hematocrit 38.4 % (37.0-47.0) Mean Corpuscular Volume 93 FL (80-99) Mean Corpuscular Hemoglobin 29.3 PG (27.0-31.0) Mean Corpuscular Hemoglobin Concent 31.5 G/DL (32.0-36.0) L Red Cell Distribution Width 12.9 % (11.6-14.8) Platelet Count 278 K/UL (150-450) Mean Platelet Volume 6.4 FL (6.5-10.1) L Neutrophils (%) (Auto) 49.1 % (45.0-75.0) Lymphocytes (%) (Auto) 37.2 % (20.0-45.0) Monocytes (%) (Auto) 8.6 % (1.0-10.0) Eosinophils (%) (Auto) 4.4 % (0.0-3.0) H Basophils (%) (Auto) 0.8 % (0.0-2.0) Sodium Level 137 mEQ/L (135-145) Potassium Level 4.0 mEQ/L (3.4-4.9) Chloride Level 95 mEQ/L (98-107) L Carbon Dioxide Level 27 mEQ/L (20-30) Anion Gap 15 (5-15) Blood Urea Nitrogen 23 mg/dL (7-23) Creatinine 1.2 mg/dL (0.5-0.9) H Estimat Glomerular Filtration Rate mL/min (>60) Glucose Level 299 mg/dL (74-106) H Calcium Level 9.5 mg/dL (8.6-10.2) Magnesium Level 1.6 mg/dL (1.7-2.5) L Total Bilirubin 0.3 mg/dL (0.0-1.2) Aspartate Amino Transf (AST/SGOT) 17 U/L (5-40) Alanine Aminotransferase (ALT/SGPT) 16 U/L (3-33) Alkaline Phosphatase 78 U/L (35-104) Troponin I < 0.30 ng/mL (<=0.30) Pro-B-Type Natriuretic Peptide 20 pg/mL (0-125) Total Protein 7.1 g/dL (6.6-8.7) Albumin 3.7 g/dL (3.5-5.2) Globulin 3.4 g/dL Albumin/Globulin Ratio 1.0 (1.0-2.7) DHAVAL CHRISTIANSON October 09, 2016 23:56
[2016-10-10] VITALS: BP 116/49
[2016-10-10 04:00] VITALS: BP 122/59
[2016-10-10] MEDS: sitaGLIPtin 50mg tab ORAL SCH (06:41)
[2016-10-10] MEDS: NovoLOG Insulin Flexpen SUBQ SCH ×4 (06:41→21:33)
[2016-10-10 07:22] LABS: BASOPHILS % (AUTO) 1.3 % (0.0-2.0); LYMPHOCYTES % (AUTO) 41.7 % (20.0-45.0); MEAN CORPUSCULAR HEMOGLOBIN 28.8 PG (27.0-31.0); MEAN CORPUSCULAR HGB CONC 30.6 G/DL (32.0-36.0); MEAN CORPUSCULAR VOLUME 94 FL (80-99); MEAN PLATELET VOLUME 6.7 FL (6.5-10.1); MONOCYTES % (AUTO) 11.1 % (1.0-10.0); PLATELET COUNT 248 K/UL (150-450); RED BLOOD COUNT 3.91 M/UL (4.20-5.40); RED CELL DISTRIBUTION WIDTH 13.4 % (11.6-14.8); WHITE BLOOD COUNT 4.1 K/UL (4.8-10.8)
[2016-10-10 07:36] LABS: ANION GAP 14 (5-15); CALCIUM 9.2 mg/dL (8.6-10.2); CARBON DIOXIDE 28 mEQ/L (20-30); CHLORIDE 98 mEQ/L (98-107); CREATININE 1.3 mg/dL (0.5-0.9); HEMOLYSIS 1; POTASSIUM 4.5 mEQ/L (3.4-4.9); SODIUM 140 mEQ/L (135-145)
[2016-10-10 08:14] VITALS: BP 136/75
[2016-10-10] MEDS ORDERED: Tubing IV Secondary IV ONE ×2 (09:31→22:31)
[2016-10-10] MEDS ORDERED: NS 275ml ONE ×2 (09:31→22:31)
[2016-10-10] MEDS: Aspirin EC 81mg tab ORAL SCH (10:14)
[2016-10-10] MEDS: Heparin 5000 units/ml inj SUBQ SCH ×2 (10:15→21:32)
[2016-10-10 11:54] VITALS: BP 141/67
--- NOTE | 2016-10-10 15:30 | Pulmonology Progress Note ---
Assessment/Plan Problems: (1) ACS (2) Accelerated hypertension (3) CHF (congestive heart failure) (4) Diabetes mellitus Assessment/Plan improving diuresing well echo checked, EF of 60p% cardio f/u sliding scale diabetic diet stop lasix, watch bun creatinine dc planning Subjective ROS Limited/Unobtainable: No Interval Events: no new complains Allergies: Coded Allergies: CODEINE (Verified Allergy, Mild, Itching, 08/26/13) SULFA (SULFONAMIDE ANTIBIOTICS) (Verified Adverse Reaction, Mild, 08/26/13) VOMIT Objective Last 24 Hour Vital Signs Date Time Temp Pulse Resp B/P Pulse Ox O2 Delivery O2 Flow Rate FiO2 10/10/16 11:54 97.5 86 18 141/67 94 Room Air 10/10/16 10:43 97.5 10/10/16 10:14 65 136/75 10/10/16 08:59 97.5 10/10/16 08:14 97.5 65 15 136/75 97 Room Air 10/10/16 04:00 97.9 62 20 122/59 97 Room Air 10/10/16 00:00 97.9 70 20 116/49 97 Room Air 10/09/16 19:49 98.5 71 19 125/63 98 Room Air 10/09/16 16:00 76 10/09/16 15:42 97.0 68 18 112/57 97 Room Air Intake and Output 10/09/16 10/10/16 19:00 07:00 Intake Total 720 ml 350 ml Output Total 900 ml Balance -180 ml 350 ml Intake Oral 720 ml Other 350 ml Output Urine Total 900 ml # Voids 2 Objective General Appearance: WD/WN HEENT: normocephalic, atraumatic Respiratory/Chest: chest wall non-tender, lungs clear Cardiovascular: normal peripheral pulses, normal rate Abdomen: normal bowel sounds, soft, non tender Extremities: no cyanosis Neurologic/Psychiatric: spray blender II-XII grossly normal Lymphatic: no neck adenopathy Laboratory Tests 10/10/16 06:10: White Blood Count 4.1L, Red Blood Count 3.91L, Hemoglobin 11.3L, Hematocrit 36.7L, Mean Corpuscular Volume 94, Mean Corpuscular Hemoglobin 28.8, Mean Corpuscular Hemoglobin Concent 30.6L, Red Cell Distribution Width 13.4, Platelet Count 248, Mean Platelet Volume 6.7, Neutrophils (%) (Auto) 41.0L, Lymphocytes (%) (Auto) 41.7, Monocytes (%) (Auto) 11.1H, Eosinophils (%) (Auto) 5.0H, Basophils (%) (Auto) 1.3, Sodium Level 140, Potassium Level 4.5, Chloride Level 98, Carbon Dioxide Level 28, Anion Gap 14, Blood Urea Nitrogen 30H, Creatinine 1.3H, Estimat Glomerular Filtration Rate , Glucose Level 332H, Calcium Level 9.2, Pro-B-Type Natriuretic Peptide 14 Current Medications Medications (Trade) Dose Ordered Sig/Hever Route PRN Reason Start Time Stop Time Status Last Admin Dose Admin Acetaminophen (Tylenol) 650 mg Q4H PRN ORAL FEVER 10/09/16 21:00 11/08/16 20:59 Albuterol/ Ipratropium (DuoNeb 0.5-3(2.5)mg/3ml) 3 ml Q4H PRN HHN Shortness of Breath 10/09/16 21:00 10/14/16 20:59 Amlodipine Besylate (Norvasc) 10 mg DAILY ORAL 10/10/16 09:00 11/09/16 08:59 10/10/16 10:14 Aspirin (Ecotrin) 81 mg DAILY ORAL 10/10/16 09:00 11/09/16 08:59 10/10/16 10:14 Dextrose (Dextrose 50%) STAT PRN IV Hypoglycemia 10/09/16 21:00 11/08/16 20:59 Enalaprilat (Vasotec) 2.5 mg Q6H PRN IV sbp more than 160 10/09/16 21:00 11/08/16 20:59 Furosemide (Lasix) 40 mg EVERY 8 HOURS IV 10/09/16 22:00 11/08/16 21:59 10/10/16 13:38 Heparin Sodium (Porcine) (Heparin 5000 units/ml) 5,000 units EVERY 12 HOURS SUBQ 10/09/16 21:00 11/08/16 20:59 10/10/16 10:15 Ibuprofen (Advil) 400 mg Q8H PRN ORAL Mild Pain (Pain Scale 1-3) 10/09/16 21:00 11/08/16 20:59 10/10/16 08:00 Insulin Aspart (NovoLOG) BEFORE MEALS AND HS SUBQ 10/09/16 22:00 11/08/16 21:59 10/10/16 12:06 Ketorolac Tromethamine (Toradol 30mg) 15 mg Q8H PRN IV Moderate Pain (Pain Scale 4-6) 10/09/16 21:00 10/14/16 20:59 10/10/16 10:13 Nitroglycerin (Ntg) 0.4 mg Q5M PRN SL Prn Chest Pain 10/09/16 20:15 11/08/16 20:14 Ondansetron HCl (Zofran) 4 mg Q6H PRN IVP Nausea & Vomiting 10/09/16 21:00 11/08/16 20:59 Pantoprazole (Protonix) 40 mg DAILY ORAL 10/10/16 09:00 11/09/16 08:59 10/10/16 10:14 Polyethylene Glycol (Miralax) 17 gm DAILYPRN PRN ORAL Constipation 10/09/16 21:00 11/08/16 20:59 Sitagliptin Phosphate (Januvia) 50 mg BEFORE BREAKFAST ORAL 10/10/16 06:30 11/09/16 06:29 10/10/16 06:41 Temazepam (Restoril) 15 mg HSPRN PRN ORAL Insomnia 10/09/16 21:00 10/16/16 20:59 KEYSHA MCKINNEY October 10, 2016 15:30
[2016-10-10 15:51] VITALS: BP 141/74
--- NOTE | 2016-10-10 17:09 | Internal Med Progress Note ---
Subjective Date of Service: October 10, 2016 Physician Name Isael Ferrell Attending Physician Emre Trejo MD Current Medications Medications (Trade) Dose Ordered Sig/Hever Route PRN Reason Start Time Stop Time Status Last Admin Dose Admin Acetaminophen (Tylenol) 650 mg Q4H PRN ORAL FEVER 10/09/16 21:00 11/08/16 20:59 Albuterol/ Ipratropium (DuoNeb 0.5-3(2.5)mg/3ml) 3 ml Q4H PRN HHN Shortness of Breath 10/09/16 21:00 10/14/16 20:59 Amlodipine Besylate (Norvasc) 10 mg DAILY ORAL 10/10/16 09:00 11/09/16 08:59 10/10/16 10:14 Aspirin (Ecotrin) 81 mg DAILY ORAL 10/10/16 09:00 11/09/16 08:59 10/10/16 10:14 Dextrose (Dextrose 50%) STAT PRN IV Hypoglycemia 10/09/16 21:00 11/08/16 20:59 Enalaprilat (Vasotec) 2.5 mg Q6H PRN IV sbp more than 160 10/09/16 21:00 11/08/16 20:59 Heparin Sodium (Porcine) (Heparin 5000 units/ml) 5,000 units EVERY 12 HOURS SUBQ 10/09/16 21:00 11/08/16 20:59 10/10/16 10:15 Ibuprofen (Advil) 400 mg Q8H PRN ORAL Mild Pain (Pain Scale 1-3) 10/09/16 21:00 11/08/16 20:59 10/10/16 16:29 Insulin Aspart (NovoLOG) BEFORE MEALS AND HS SUBQ 10/09/16 22:00 11/08/16 21:59 10/10/16 12:06 Nitroglycerin (Ntg) 0.4 mg Q5M PRN SL Prn Chest Pain 10/09/16 20:15 11/08/16 20:14 Ondansetron HCl (Zofran) 4 mg Q6H PRN IVP Nausea & Vomiting 10/09/16 21:00 11/08/16 20:59 Pantoprazole (Protonix) 40 mg DAILY ORAL 10/10/16 09:00 11/09/16 08:59 10/10/16 10:14 Polyethylene Glycol (Miralax) 17 gm DAILYPRN PRN ORAL Constipation 10/09/16 21:00 11/08/16 20:59 Sitagliptin Phosphate (Januvia) 50 mg BEFORE BREAKFAST ORAL 10/10/16 06:30 11/09/16 06:29 10/10/16 06:41 Temazepam (Restoril) 15 mg HSPRN PRN ORAL Insomnia 10/09/16 21:00 10/16/16 20:59 Allergies: Coded Allergies: CODEINE (Verified Allergy, Mild, Itching, 08/26/13) SULFA (SULFONAMIDE ANTIBIOTICS) (Verified Adverse Reaction, Mild, 08/26/13) VOMIT ROS Limited/Unobtainable: No Constitutional: Reports: no symptoms HEENT: Reports: no symptoms Cardiovascular: Reports: no symptoms Respiratory: Reports: no symptoms Gastrointestinal/Abdominal: Reports: no symptoms Genitourinary: Reports: no symptoms Neurologic/Psychiatric: Reports: no symptoms Subjective 76 YO F admitted with uncontrolled hypertension. Cover for Int Med-Dr Trejo. Objective Last Vital Signs Date Time Temp Pulse Resp B/P Pulse Ox O2 Delivery O2 Flow Rate FiO2 10/10/16 15:51 97.5 72 14 141/74 96 Room Air 10/07/16 16:17 98 Laboratory Tests Test 10/10/16 06:10 White Blood Count 4.1 K/UL (4.8-10.8) L Red Blood Count 3.91 M/UL (4.20-5.40) L Hemoglobin 11.3 G/DL (12.0-16.0) L Hematocrit 36.7 % (37.0-47.0) L Mean Corpuscular Volume 94 FL (80-99) Mean Corpuscular Hemoglobin 28.8 PG (27.0-31.0) Mean Corpuscular Hemoglobin Concent 30.6 G/DL (32.0-36.0) L Red Cell Distribution Width 13.4 % (11.6-14.8) Platelet Count 248 K/UL (150-450) Mean Platelet Volume 6.7 FL (6.5-10.1) Neutrophils (%) (Auto) 41.0 % (45.0-75.0) L Lymphocytes (%) (Auto) 41.7 % (20.0-45.0) Monocytes (%) (Auto) 11.1 % (1.0-10.0) H Eosinophils (%) (Auto) 5.0 % (0.0-3.0) H Basophils (%) (Auto) 1.3 % (0.0-2.0) Sodium Level 140 mEQ/L (135-145) Potassium Level 4.5 mEQ/L (3.4-4.9) Chloride Level 98 mEQ/L (98-107) Carbon Dioxide Level 28 mEQ/L (20-30) Anion Gap 14 (5-15) Blood Urea Nitrogen 30 mg/dL (7-23) H Creatinine 1.3 mg/dL (0.5-0.9) H Estimat Glomerular Filtration Rate mL/min (>60) Glucose Level 332 mg/dL (74-106) H Calcium Level 9.2 mg/dL (8.6-10.2) Pro-B-Type Natriuretic Peptide 14 pg/mL (0-125) Intake and Output 10/09/16 10/10/16 19:00 07:00 Intake Total 720 ml 350 ml Output Total 900 ml Balance -180 ml 350 ml Intake Oral 720 ml Other 350 ml Output Urine Total 900 ml # Voids 2 Objective General: obese; alert, cooperative, no distress, appears stated age Head: normocephalic, without obvious abnormality, atraumatic Eyes: conjunctivae/corneas clear. PERRL, EOM's intact Throat: lips, mucosa, and tongue normal. MMM Neck: supple, symmetrical, trachea midline, and no JVD Lungs: clear to auscultation bilaterally Heart: regular rate and rhythm, S1, S2 normal, no murmur, click, rub or gallop Abdomen: soft, non-tender, non-distended, bowel sounds normal; no masses or organomegaly Extremities: extremities normal, atraumatic, no cyanosis or edema Pulses: 2+ and symmetric Skin: skin color, texture, turgor normal; no rashes or lesions Neurologic: grossly normal, no focal deficits Assessment/Plan Problem List: (1) PUD (peptic ulcer disease) (2) GERD (gastroesophageal reflux disease) Assessment & Plan: Cont protonix. (3) DDD (degenerative disc disease), lumbar (4) Radiculopathy of lumbar region (5) Accelerated hypertension Assessment & Plan: Cont hydralazine, cardizem and norvasc per cardiology. (6) Diabetes mellitus Assessment & Plan: Continue novolog sliding scale and januvia Status: progressing Assessment/Plan Discharge planning ISAEL FERRELL October 10, 2016 17:09
[2016-10-10 20:00] VITALS: BP 119/51
[2016-10-10] MEDS: Ketorolac 30mg Inj IV PRN (21:33)
[2016-10-10] MEDS ORDERED: D5 1/2NS 1000ml IV ONE (22:31)
[2016-10-11] VITALS: BP 122/64
[2016-10-11 04:00] VITALS: BP 133/67
[2016-10-11] MEDS: sitaGLIPtin 50mg tab ORAL SCH (06:12)
[2016-10-11] MEDS: NovoLOG Insulin Flexpen SUBQ SCH ×4 (06:14→20:44)
[2016-10-11 07:10] LABS: BASOPHILS % (AUTO) 1.7 % (0.0-2.0); LYMPHOCYTES % (AUTO) 43.5 % (20.0-45.0); MEAN CORPUSCULAR HEMOGLOBIN 28.9 PG (27.0-31.0); MEAN CORPUSCULAR HGB CONC 30.8 G/DL (32.0-36.0); MEAN CORPUSCULAR VOLUME 94 FL (80-99); MEAN PLATELET VOLUME 6.9 FL (6.5-10.1); MONOCYTES % (AUTO) 9.9 % (1.0-10.0); NEUTROPHILS % (AUTO) 40.9 % (45.0-75.0); PLATELET COUNT 238 K/UL (150-450); RED BLOOD COUNT 3.98 M/UL (4.20-5.40); RED CELL DISTRIBUTION WIDTH 13.3 % (11.6-14.8); WHITE BLOOD COUNT 4.2 K/UL (4.8-10.8)
[2016-10-11 07:34] VITALS: BP 134/69
--- NOTE | 2016-10-11 07:51 | Pulmonology Progress Note ---
Assessment/Plan Assessment/Plan ASSESSMENT chest pain, r/o ACS HTN urgency CHF DM GERD PUD radiculopathy lumbar region ventriculomegaly, possible communicating hydrocephalus hypo Mg elevated creatinine PLAN OF CARE MD costello serial troponin negative ECG with NSR no acute ischemic changes, this ruled out for ACS cardio follwos BP better with CCB and Hydralazine prn chest pain atypical likely 2 to GERD GI prophylaxis off Lasix, monitor renal parameters, initial CXR with mild interstitial congestion, pro BNP WNL no clinical evidence of CHF exacerbation f/up CXR negative O2 HHN prn, pulse oximetry stable on RA Venous Duplex BLE negative BS management with Januvia and SS of insulin, check HgA1c a pain management CT head with disproportionate ventriculomegaly. possible communicating hydrocephalus. Mg replaced labs pending fort his am dc planning case discussed and evaluated by supervising physician Subjective Allergies: Coded Allergies: CODEINE (Verified Allergy, Mild, Itching, 08/26/13) SULFA (SULFONAMIDE ANTIBIOTICS) (Verified Adverse Reaction, Mild, 08/26/13) VOMIT Objective Last 24 Hour Vital Signs Date Time Temp Pulse Resp B/P Pulse Ox O2 Delivery O2 Flow Rate FiO2 10/11/16 07:34 97.7 66 14 134/69 98 Room Air 10/11/16 04:00 97.3 58 20 133/67 100 Room Air 10/11/16 00:00 97.7 69 20 122/64 96 Room Air 10/10/16 20:00 97.7 76 20 119/51 94 Room Air 10/10/16 17:28 97.5 10/10/16 15:51 97.5 72 14 141/74 96 Room Air 10/10/16 11:54 97.5 86 18 141/67 94 Room Air 10/10/16 10:43 97.5 10/10/16 10:14 65 136/75 10/10/16 08:14 97.5 65 15 136/75 97 Room Air Intake and Output 10/10/16 10/11/16 19:00 07:00 Intake Total 1900 ml 250 ml Output Total 1200 ml Balance 700 ml 250 ml Intake Oral 1800 ml 250 ml IV Total 100 ml Output Urine Total 1200 ml # Voids 2 # Bowel Movements 2 Laboratory Tests 10/11/16 05:20: White Blood Count 4.2L, Red Blood Count 3.98L, Hemoglobin 11.5L, Hematocrit 37.4 , Mean Corpuscular Volume 94, Mean Corpuscular Hemoglobin 28.9, Mean Corpuscular Hemoglobin Concent 30.8L, Red Cell Distribution Width 13.3, Platelet Count 238, Mean Platelet Volume 6.9, Neutrophils (%) (Auto) 40.9L, Lymphocytes (%) (Auto) 43.5, Monocytes (%) (Auto) 9.9, Eosinophils (%) (Auto) 4.0H, Basophils (%) (Auto) 1.7, Sodium Level [Pending], Potassium Level [Pending ], Chloride Level [Pending], Carbon Dioxide Level [Pending], Blood Urea Nitrogen [Pending], Creatinine [Pending], Estimat Glomerular Filtration Rate [ Pending], Glucose Level [Pending], Hemoglobin A1c [Pending], Calcium Level [ Pending], Phosphorus Level [Pending], Magnesium Level [Pending], Total Bilirubin [Pending], Aspartate Amino Transf (AST/SGOT) [Pending], Alanine Aminotransferase (ALT/SGPT) [Pending], Alkaline Phosphatase [Pending], Total Protein [Pending], Albumin [Pending], Globulin [Pending] Current Medications Medications (Trade) Dose Ordered Sig/Hever Route PRN Reason Start Time Stop Time Status Last Admin Dose Admin Acetaminophen (Tylenol) 650 mg Q4H PRN ORAL FEVER 10/09/16 21:00 11/08/16 20:59 Albuterol/ Ipratropium (DuoNeb 0.5-3(2.5)mg/3ml) 3 ml Q4H PRN HHN Shortness of Breath 10/09/16 21:00 10/14/16 20:59 Amlodipine Besylate (Norvasc) 10 mg DAILY ORAL 10/10/16 09:00 11/09/16 08:59 10/10/16 10:14 Aspirin (Ecotrin) 81 mg DAILY ORAL 10/10/16 09:00 11/09/16 08:59 10/10/16 10:14 Dextrose (Dextrose 50%) STAT PRN IV Hypoglycemia 10/09/16 21:00 11/08/16 20:59 Enalaprilat (Vasotec) 2.5 mg Q6H PRN IV sbp more than 160 10/09/16 21:00 11/08/16 20:59 Heparin Sodium (Porcine) (Heparin 5000 units/ml) 5,000 units EVERY 12 HOURS SUBQ 10/09/16 21:00 11/08/16 20:59 10/10/16 21:32 Ibuprofen (Advil) 400 mg Q8H PRN ORAL Mild Pain (Pain Scale 1-3) 10/09/16 21:00 11/08/16 20:59 10/10/16 16:29 Insulin Aspart (NovoLOG) BEFORE MEALS AND HS SUBQ 10/09/16 22:00 11/08/16 21:59 10/11/16 06:14 Ketorolac Tromethamine (Toradol 30mg) 15 mg Q8H PRN IV Moderate Pain (Pain Scale 4-6) 10/10/16 19:00 10/15/16 18:59 10/10/16 21:33 Nitroglycerin (Ntg) 0.4 mg Q5M PRN SL Prn Chest Pain 10/09/16 20:15 11/08/16 20:14 Ondansetron HCl (Zofran) 4 mg Q6H PRN IVP Nausea & Vomiting 10/09/16 21:00 11/08/16 20:59 Pantoprazole (Protonix) 40 mg DAILY ORAL 10/10/16 09:00 11/09/16 08:59 10/10/16 10:14 Polyethylene Glycol (Miralax) 17 gm DAILYPRN PRN ORAL Constipation 10/09/16 21:00 11/08/16 20:59 Sitagliptin Phosphate (Januvia) 50 mg BEFORE BREAKFAST ORAL 10/10/16 06:30 11/09/16 06:29 10/11/16 06:12 Temazepam (Restoril) 15 mg HSPRN PRN ORAL Insomnia 10/09/16 21:00 10/16/16 20:59 Jordan JuradoTami funes NP October 11, 2016 07:51
[2016-10-11 08:04] LABS: ALANINE AMINOTRANSFERASE 16 U/L (3-33); ALBUMIN/GLOBULIN RATIO 1.2 (1.0-2.7); ANION GAP 12 (5-15); ASPARTATE AMINO TRANSFERASE 19 U/L (5-40); CALCIUM 9.1 mg/dL (8.6-10.2); CARBON DIOXIDE 30 mEQ/L (20-30); CHLORIDE 94 mEQ/L (98-107); CREATININE 1.2 mg/dL (0.5-0.9); HEMOLYSIS 3; MAGNESIUM 2.1 mg/dL (1.7-2.5); POTASSIUM 4.4 mEQ/L (3.4-4.9); SODIUM 136 mEQ/L (135-145); TOTAL PROTEIN 6.4 g/dL (6.6-8.7)
[2016-10-11] MEDS: Aspirin EC 81mg tab ORAL SCH (09:28)
[2016-10-11] MEDS: Heparin 5000 units/ml inj SUBQ SCH ×2 (09:29→20:26)
[2016-10-11] MEDS: Ketorolac 30mg Inj IV PRN ×2 (09:35→19:23)
[2016-10-11 11:30] VITALS: BP 129/71
--- NOTE | 2016-10-11 13:51 | Pulmonology Progress Note ---
Assessment/Plan Assessment/Plan ASSESSMENT chest pain, r/o ACS HTN urgency CHF DM OOC GERD PUD radiculopathy lumbar region ventriculomegaly, possible communicating hydrocephalus hypo Mg elevated creatinine PLAN OF CARE MD costello serial troponin negative ECG with NSR no acute ischemic changes, this ruled out for ACS cardio follows BP better with CCB and Hydralazine prn chest pain atypical likely 2 to GERD GI prophylaxis off Lasix, monitor renal parameters, cerat down to 1.2 initial CXR with mild interstitial congestion, pro BNP WNL no clinical evidence of CHF exacerbation f/up CXR negative O2 HHN prn, pulse oximetry stable on RA Venous Duplex BLE negative BS management with Januvia and SS of insulin, in 300 range , [id number] start Levemir and titrate as needed pain management CT head with disproportionate ventriculomegaly. possible communicating hydrocephalus. Mg replaced, stable this am dc planning case discussed and evaluated by supervising physician Subjective Allergies: Coded Allergies: CODEINE (Verified Allergy, Mild, Itching, 08/26/13) SULFA (SULFONAMIDE ANTIBIOTICS) (Verified Adverse Reaction, Mild, 08/26/13) VOMIT Subjective denies chest pain, SB on RA sat stable Objective Last 24 Hour Vital Signs Date Time Temp Pulse Resp B/P Pulse Ox O2 Delivery O2 Flow Rate FiO2 10/11/16 11:30 97.3 74 15 129/71 100 Room Air 10/11/16 10:05 97.7 10/11/16 09:28 66 134/69 10/11/16 07:34 97.7 66 14 134/69 98 Room Air 10/11/16 07:00 66 18 Room Air 98 10/11/16 04:00 97.3 58 20 133/67 100 Room Air 10/11/16 00:00 97.7 69 20 122/64 96 Room Air 10/10/16 20:00 97.7 76 20 119/51 94 Room Air 10/10/16 17:28 97.5 10/10/16 15:51 97.5 72 14 141/74 96 Room Air Intake and Output 10/10/16 10/11/16 19:00 07:00 Intake Total 1900 ml 250 ml Output Total 1200 ml Balance 700 ml 250 ml Intake Oral 1800 ml 250 ml IV Total 100 ml Output Urine Total 1200 ml # Voids 2 # Bowel Movements 2 General Appearance: WD/WN, no acute distress HEENT: normocephalic, atraumatic, anicteric, mucous membranes moist Respiratory/Chest: lungs clear, no respiratory distress, no accessory muscle use Cardiovascular: normal peripheral pulses, normal rate, regular rhythm, no JVD Abdomen: soft, non tender Genitourinary: normal external genitalia Extremities: no edema, pedal pulses normal Neurologic/Psychiatric: alert, oriented x 3, responsive Musculoskeletal: normal muscle bulk Laboratory Tests 10/11/16 05:20: White Blood Count 4.2L, Red Blood Count 3.98L, Hemoglobin 11.5L, Hematocrit 37.4 , Mean Corpuscular Volume 94, Mean Corpuscular Hemoglobin 28.9, Mean Corpuscular Hemoglobin Concent 30.8L, Red Cell Distribution Width 13.3, Platelet Count 238, Mean Platelet Volume 6.9, Neutrophils (%) (Auto) 40.9L, Lymphocytes (%) (Auto) 43.5, Monocytes (%) (Auto) 9.9, Eosinophils (%) (Auto) 4.0H, Basophils (%) (Auto) 1.7, Sodium Level 136, Potassium Level 4.4, Chloride Level 94L, Carbon Dioxide Level 30, Anion Gap 12, Blood Urea Nitrogen 32H, Creatinine 1.2H, Estimat Glomerular Filtration Rate , Glucose Level 369H, Hemoglobin A1c 8.7H, Calcium Level 9.1, Phosphorus Level 4.0, Magnesium Level 2.1, Total Bilirubin 0.3, Aspartate Amino Transf (AST/SGOT) 19, Alanine Aminotransferase (ALT/SGPT) 16, Alkaline Phosphatase 75, Total Protein 6.4L, Albumin 3.6, Globulin 2.8, Albumin/Globulin Ratio 1.2 Current Medications Medications (Trade) Dose Ordered Sig/Hever Route PRN Reason Start Time Stop Time Status Last Admin Dose Admin Acetaminophen (Tylenol) 650 mg Q4H PRN ORAL FEVER 10/09/16 21:00 11/08/16 20:59 Albuterol/ Ipratropium (DuoNeb 0.5-3(2.5)mg/3ml) 3 ml Q4H PRN HHN Shortness of Breath 10/09/16 21:00 10/14/16 20:59 Amlodipine Besylate (Norvasc) 10 mg DAILY ORAL 10/10/16 09:00 11/09/16 08:59 10/11/16 09:28 Aspirin (Ecotrin) 81 mg DAILY ORAL 10/10/16 09:00 11/09/16 08:59 10/11/16 09:28 Dextrose (Dextrose 50%) STAT PRN IV Hypoglycemia 10/09/16 21:00 11/08/16 20:59 Enalaprilat (Vasotec) 2.5 mg Q6H PRN IV sbp more than 160 10/09/16 21:00 11/08/16 20:59 Heparin Sodium (Porcine) (Heparin 5000 units/ml) 5,000 units EVERY 12 HOURS SUBQ 10/09/16 21:00 11/08/16 20:59 10/11/16 09:29 Ibuprofen (Advil) 400 mg Q8H PRN ORAL Mild Pain (Pain Scale 1-3) 10/09/16 21:00 11/08/16 20:59 10/10/16 16:29 Insulin Aspart (NovoLOG) BEFORE MEALS AND HS SUBQ 10/09/16 22:00 11/08/16 21:59 10/11/16 12:10 Ketorolac Tromethamine (Toradol 30mg) 15 mg Q8H PRN IV Moderate Pain (Pain Scale 4-6) 10/10/16 19:00 10/15/16 18:59 10/11/16 09:35 Nitroglycerin (Ntg) 0.4 mg Q5M PRN SL Prn Chest Pain 10/09/16 20:15 11/08/16 20:14 Ondansetron HCl (Zofran) 4 mg Q6H PRN IVP Nausea & Vomiting 10/09/16 21:00 11/08/16 20:59 Pantoprazole (Protonix) 40 mg DAILY ORAL 10/10/16 09:00 11/09/16 08:59 10/11/16 09:28 Polyethylene Glycol (Miralax) 17 gm DAILYPRN PRN ORAL Constipation 10/09/16 21:00 11/08/16 20:59 Sitagliptin Phosphate (Januvia) 50 mg BEFORE BREAKFAST ORAL 10/10/16 06:30 11/09/16 06:29 10/11/16 06:12 Temazepam (Restoril) 15 mg HSPRN PRN ORAL Insomnia 10/09/16 21:00 10/16/16 20:59 Ortega (Vanchtein),Tami SMALLS October 11, 2016 13:51
[2016-10-11 16:05] VITALS: BP 126/69
[2016-10-11] MEDS ORDERED: Levemir Flexpen SUBQ SCH (16:30)
--- NOTE | 2016-10-11 18:51 | Internal Med Progress Note ---
Subjective Date of Service: October 11, 2016 Physician Name Isael Ferrell Attending Physician Emre Trejo MD Current Medications Medications (Trade) Dose Ordered Sig/Hever Route PRN Reason Start Time Stop Time Status Last Admin Dose Admin Acetaminophen (Tylenol) 650 mg Q4H PRN ORAL FEVER 10/09/16 21:00 11/08/16 20:59 Albuterol/ Ipratropium (DuoNeb 0.5-3(2.5)mg/3ml) 3 ml Q4H PRN HHN Shortness of Breath 10/09/16 21:00 10/14/16 20:59 Amlodipine Besylate (Norvasc) 10 mg DAILY ORAL 10/10/16 09:00 11/09/16 08:59 10/11/16 09:28 Aspirin (Ecotrin) 81 mg DAILY ORAL 10/10/16 09:00 11/09/16 08:59 10/11/16 09:28 Dextrose (Dextrose 50%) STAT PRN IV Hypoglycemia 10/09/16 21:00 11/08/16 20:59 Enalaprilat (Vasotec) 2.5 mg Q6H PRN IV sbp more than 160 10/09/16 21:00 11/08/16 20:59 Heparin Sodium (Porcine) (Heparin 5000 units/ml) 5,000 units EVERY 12 HOURS SUBQ 10/09/16 21:00 11/08/16 20:59 10/11/16 09:29 Ibuprofen (Advil) 400 mg Q8H PRN ORAL Mild Pain (Pain Scale 1-3) 10/09/16 21:00 11/08/16 20:59 10/10/16 16:29 Insulin Aspart (NovoLOG) BEFORE MEALS AND HS SUBQ 10/09/16 22:00 11/08/16 21:59 10/11/16 17:28 Insulin Detemir (Levemir) 20 units QHS SUBQ 10/11/16 16:30 11/10/16 16:29 10/11/16 17:28 Ketorolac Tromethamine (Toradol 30mg) 15 mg Q8H PRN IV Moderate Pain (Pain Scale 4-6) 10/10/16 19:00 10/15/16 18:59 10/11/16 09:35 Nitroglycerin (Ntg) 0.4 mg Q5M PRN SL Prn Chest Pain 10/09/16 20:15 11/08/16 20:14 Ondansetron HCl (Zofran) 4 mg Q6H PRN IVP Nausea & Vomiting 10/09/16 21:00 11/08/16 20:59 Pantoprazole (Protonix) 40 mg DAILY ORAL 10/10/16 09:00 11/09/16 08:59 10/11/16 09:28 Polyethylene Glycol (Miralax) 17 gm DAILYPRN PRN ORAL Constipation 10/09/16 21:00 11/08/16 20:59 Sitagliptin Phosphate (Januvia) 50 mg BEFORE BREAKFAST ORAL 10/10/16 06:30 11/09/16 06:29 10/11/16 06:12 Temazepam (Restoril) 15 mg HSPRN PRN ORAL Insomnia 10/09/16 21:00 10/16/16 20:59 Allergies: Coded Allergies: CODEINE (Verified Allergy, Mild, Itching, 08/26/13) SULFA (SULFONAMIDE ANTIBIOTICS) (Verified Adverse Reaction, Mild, 08/26/13) VOMIT ROS Limited/Unobtainable: No Constitutional: Reports: no symptoms HEENT: Reports: no symptoms Cardiovascular: Reports: no symptoms Respiratory: Reports: no symptoms Gastrointestinal/Abdominal: Reports: no symptoms Genitourinary: Reports: no symptoms Neurologic/Psychiatric: Reports: no symptoms Subjective 76 YO F admitted with uncontrolled hypertension. Cover for Int Med-Dr Trejo. Await psych consult. Objective Last Vital Signs Date Time Temp Pulse Resp B/P Pulse Ox O2 Delivery O2 Flow Rate FiO2 10/11/16 16:05 97.9 79 16 126/69 99 Room Air 10/11/16 07:00 98 Laboratory Tests Test 10/11/16 05:20 White Blood Count 4.2 K/UL (4.8-10.8) L Red Blood Count 3.98 M/UL (4.20-5.40) L Hemoglobin 11.5 G/DL (12.0-16.0) L Hematocrit 37.4 % (37.0-47.0) Mean Corpuscular Volume 94 FL (80-99) Mean Corpuscular Hemoglobin 28.9 PG (27.0-31.0) Mean Corpuscular Hemoglobin Concent 30.8 G/DL (32.0-36.0) L Red Cell Distribution Width 13.3 % (11.6-14.8) Platelet Count 238 K/UL (150-450) Mean Platelet Volume 6.9 FL (6.5-10.1) Neutrophils (%) (Auto) 40.9 % (45.0-75.0) L Lymphocytes (%) (Auto) 43.5 % (20.0-45.0) Monocytes (%) (Auto) 9.9 % (1.0-10.0) Eosinophils (%) (Auto) 4.0 % (0.0-3.0) H Basophils (%) (Auto) 1.7 % (0.0-2.0) Sodium Level 136 mEQ/L (135-145) Potassium Level 4.4 mEQ/L (3.4-4.9) Chloride Level 94 mEQ/L (98-107) L Carbon Dioxide Level 30 mEQ/L (20-30) Anion Gap 12 (5-15) Blood Urea Nitrogen 32 mg/dL (7-23) H Creatinine 1.2 mg/dL (0.5-0.9) H Estimat Glomerular Filtration Rate mL/min (>60) Glucose Level 369 mg/dL (74-106) H Hemoglobin A1c 8.7 % (< 6.0) H Calcium Level 9.1 mg/dL (8.6-10.2) Phosphorus Level 4.0 mg/dL (2.5-4.8) Magnesium Level 2.1 mg/dL (1.7-2.5) Total Bilirubin 0.3 mg/dL (0.0-1.2) Aspartate Amino Transf (AST/SGOT) 19 U/L (5-40) Alanine Aminotransferase (ALT/SGPT) 16 U/L (3-33) Alkaline Phosphatase 75 U/L (35-104) Total Protein 6.4 g/dL (6.6-8.7) L Albumin 3.6 g/dL (3.5-5.2) Globulin 2.8 g/dL Albumin/Globulin Ratio 1.2 (1.0-2.7) Intake and Output 10/10/16 10/11/16 19:00 07:00 Intake Total 1900 ml 250 ml Output Total 1200 ml Balance 700 ml 250 ml Intake Oral 1800 ml 250 ml IV Total 100 ml Output Urine Total 1200 ml # Voids 2 # Bowel Movements 2 Objective General: obese; alert, cooperative, no distress, appears stated age Head: normocephalic, without obvious abnormality, atraumatic Eyes: conjunctivae/corneas clear. PERRL, EOM's intact Throat: lips, mucosa, and tongue normal. MMM Neck: supple, symmetrical, trachea midline, and no JVD Lungs: clear to auscultation bilaterally Heart: regular rate and rhythm, S1, S2 normal, no murmur, click, rub or gallop Abdomen: soft, non-tender, non-distended, bowel sounds normal; no masses or organomegaly Extremities: extremities normal, atraumatic, no cyanosis or edema Pulses: 2+ and symmetric Skin: skin color, texture, turgor normal; no rashes or lesions Neurologic: grossly normal, no focal deficits Assessment/Plan Problem List: (1) PUD (peptic ulcer disease) (2) GERD (gastroesophageal reflux disease) Assessment & Plan: Cont protonix. (3) DDD (degenerative disc disease), lumbar (4) Radiculopathy of lumbar region (5) Accelerated hypertension Assessment & Plan: Cont hydralazine, cardizem and norvasc per cardiology. (6) Diabetes mellitus Assessment & Plan: Continue novolog sliding scale and januvia (7) Major depression Assessment & Plan: Await psych note. Status: progressing Assessment/Plan Discharge planning ISAEL FERRELL October 11, 2016 18:51
[2016-10-11 20:00] VITALS: BP 147/68
[2016-10-12] VITALS: BP 137/64
[2016-10-12] MEDS: Miralax 17gm pkt ORAL PRN (00:19)
[2016-10-12 04:00] VITALS: BP 132/68
[2016-10-12] MEDS: sitaGLIPtin 50mg tab ORAL SCH (06:11)
[2016-10-12] MEDS: NovoLOG Insulin Flexpen SUBQ SCH ×4 (06:12→21:04)
[2016-10-12 06:35] LABS: EOSINOPHILS % (AUTO) 2.7 % (0.0-3.0); LYMPHOCYTES % (AUTO) 30.4 % (20.0-45.0); MEAN CORPUSCULAR HEMOGLOBIN 29.4 PG (27.0-31.0); MEAN CORPUSCULAR HGB CONC 31.4 G/DL (32.0-36.0); MEAN CORPUSCULAR VOLUME 94 FL (80-99); MEAN PLATELET VOLUME 7.1 FL (6.5-10.1); MONOCYTES % (AUTO) 10.4 % (1.0-10.0); NEUTROPHILS % (AUTO) 55.6 % (45.0-75.0); PLATELET COUNT 236 K/UL (150-450); RED BLOOD COUNT 3.67 M/UL (4.20-5.40); RED CELL DISTRIBUTION WIDTH 13.1 % (11.6-14.8); WHITE BLOOD COUNT 5.5 K/UL (4.8-10.8)
[2016-10-12 06:48] LABS: ANION GAP 11 (5-15); CARBON DIOXIDE 29 mEQ/L (20-30); CHLORIDE 97 mEQ/L (98-107); CREATININE 1.1 mg/dL (0.5-0.9); HEMOLYSIS 0; POTASSIUM 4.8 mEQ/L (3.4-4.9); SODIUM 137 mEQ/L (135-145)
[2016-10-12 08:00] VITALS: BP 131/64
[2016-10-12] MEDS: DULoxetine 30mg cap ORAL SCH (08:38)
[2016-10-12] MEDS: Aspirin EC 81mg tab ORAL SCH (08:38)
[2016-10-12] MEDS: Heparin 5000 units/ml inj SUBQ SCH ×2 (08:39→21:04)
[2016-10-12] MEDS ORDERED: Bisacodyl EC 5mg tab ORAL ONE (11:15)
[2016-10-12 12:00] VITALS: BP 150/75
--- NOTE | 2016-10-12 12:11 | Pulmonology Progress Note ---
Assessment/Plan Assessment/Plan ASSESSMENT chest pain, r/o ACS HTN urgency CHF DM OOC GERD PUD radiculopathy lumbar region ventriculomegaly, possible communicating hydrocephalus hypo Mg elevated creatinine -resolved constipation PLAN OF CARE MD jimenez serial troponin negative ECG with NSR no acute ischemic changes, this ruled out for ACS cardio follows BP better with CCB and Hydralazine prn chest pain atypical likely 2 to GERD GI prophylaxis off Lasix, monitor renal parameters, creat down to 1.1 initial CXR with mild interstitial congestion, pro BNP WNL no clinical evidence of CHF exacerbation f/up CXR negative O2 HHN prn, pulse oximetry stable on RA Venous Duplex BLE negative BS management with Januvia and SS of insulin, in 300 range , [id number] continue Levemir , but increase to bid bowel regimen, Dulcolax x [address] head with disproportionate ventriculomegaly. possible communicating hydrocephalus. Mg stable after replacement dc planning need levemir upon discharge, BS not controlled case discussed and evaluated by supervising physician Subjective Allergies: Coded Allergies: CODEINE (Verified Allergy, Mild, Itching, 08/26/13) SULFA (SULFONAMIDE ANTIBIOTICS) (Verified Adverse Reaction, Mild, 08/26/13) VOMIT Subjective denies chest pain, SB on RA sat stable c/o abdominal discomfort and nausea, no BM for few days Objective Last 24 Hour Vital Signs Date Time Temp Pulse Resp B/P Pulse Ox O2 Delivery O2 Flow Rate FiO2 10/12/16 08:38 69 132/68 10/12/16 08:05 71 18 Room Air 10/12/16 08:00 97.9 70 20 131/64 96 Room Air 10/12/16 04:00 97.0 69 18 132/68 96 Room Air 10/12/16 00:00 97.4 65 18 137/64 97 Room Air 10/11/16 20:41 75 18 Room Air 10/11/16 20:00 98.1 71 18 147/68 96 Room Air 10/11/16 16:05 97.9 79 16 126/69 99 Room Air Intake and Output 10/11/16 10/12/16 19:00 07:00 Intake Total 1800 ml 540 ml Output Total 800 ml Balance 1000 ml 540 ml Intake Oral 1800 ml 540 ml Output Urine Total 800 ml # Voids 6 Objective General Appearance: WD/WN, no acute distress HEENT: normocephalic, atraumatic, anicteric, mucous membranes moist Respiratory/Chest: lungs clear, no respiratory distress, no accessory muscle use Cardiovascular: normal peripheral pulses, normal rate, regular rhythm, no JVD Abdomen: soft, non tender Genitourinary: normal external genitalia Extremities: no edema, pedal pulses normal Neurologic/Psychiatric: alert, oriented x 3, responsive Musculoskeletal: normal muscle bulk Laboratory Tests 10/12/16 06:00: White Blood Count 5.5, Red Blood Count 3.67L, Hemoglobin 10.8L, Hematocrit 34.4L , Mean Corpuscular Volume 94, Mean Corpuscular Hemoglobin 29.4, Mean Corpuscular Hemoglobin Concent 31.4L, Red Cell Distribution Width 13.1, Platelet Count 236, Mean Platelet Volume 7.1, Neutrophils (%) (Auto) 55.6, Lymphocytes (%) (Auto) 30.4, Monocytes (%) (Auto) 10.4H, Eosinophils (%) (Auto) 2.7, Basophils (%) (Auto) 1.0, Sodium Level 137, Potassium Level 4.8, Chloride Level 97L, Carbon Dioxide Level 29, Anion Gap 11, Blood Urea Nitrogen 35H, Creatinine 1.1H, Estimat Glomerular Filtration Rate , Glucose Level 360H, Calcium Level 9.0 Current Medications Medications (Trade) Dose Ordered Sig/Hever Route PRN Reason Start Time Stop Time Status Last Admin Dose Admin Acetaminophen (Tylenol) 650 mg Q4H PRN ORAL FEVER 10/09/16 21:00 11/08/16 20:59 Albuterol/ Ipratropium (DuoNeb 0.5-3(2.5)mg/3ml) 3 ml Q4H PRN HHN Shortness of Breath 10/09/16 21:00 10/14/16 20:59 Amlodipine Besylate (Norvasc) 10 mg DAILY ORAL 10/10/16 09:00 11/09/16 08:59 10/12/16 08:38 Aspirin (Ecotrin) 81 mg DAILY ORAL 10/10/16 09:00 11/09/16 08:59 10/12/16 08:38 Dextrose (Dextrose 50%) STAT PRN IV Hypoglycemia 10/09/16 21:00 11/08/16 20:59 Duloxetine HCl (Cymbalta) 30 mg DAILY ORAL 10/12/16 09:00 11/11/16 08:59 10/12/16 08:38 Enalaprilat (Vasotec) 2.5 mg Q6H PRN IV sbp more than 160 10/09/16 21:00 11/08/16 20:59 Heparin Sodium (Porcine) (Heparin 5000 units/ml) 5,000 units EVERY 12 HOURS SUBQ 10/09/16 21:00 11/08/16 20:59 10/12/16 08:39 Ibuprofen (Advil) 400 mg Q8H PRN ORAL Mild Pain (Pain Scale 1-3) 10/09/16 21:00 11/08/16 20:59 10/10/16 16:29 Insulin Aspart (NovoLOG) BEFORE MEALS AND HS SUBQ 10/09/16 22:00 11/08/16 21:59 10/12/16 11:29 Insulin Detemir (Levemir) 20 units QHS SUBQ 10/11/16 16:30 11/10/16 16:29 10/11/16 17:28 Ketorolac Tromethamine (Toradol 30mg) 15 mg Q8H PRN IV Moderate Pain (Pain Scale 4-6) 10/10/16 19:00 10/15/16 18:59 10/11/16 19:23 Nitroglycerin (Ntg) 0.4 mg Q5M PRN SL Prn Chest Pain 10/09/16 20:15 11/08/16 20:14 Ondansetron HCl (Zofran) 4 mg Q6H PRN IVP Nausea & Vomiting 10/09/16 21:00 11/08/16 20:59 Pantoprazole (Protonix) 40 mg DAILY ORAL 10/10/16 09:00 11/09/16 08:59 10/12/16 08:38 Polyethylene Glycol (Miralax) 17 gm DAILYPRN PRN ORAL Constipation 10/09/16 21:00 11/08/16 20:59 10/12/16 00:19 Sitagliptin Phosphate (Januvia) 50 mg BEFORE BREAKFAST ORAL 10/10/16 06:30 11/09/16 06:29 10/12/16 06:11 Temazepam (Restoril) 15 mg HSPRN PRN ORAL Insomnia 10/09/16 21:00 10/16/16 20:59 10/12/16 00:19 [facility] ([facility])Tami NP October 12, 2016 12:11
[2016-10-12] MEDS: Ketorolac 30mg Inj IV PRN ×2 (14:24→22:39)
--- NOTE | 2016-10-12 15:49 | Internal Med Progress Note ---
Subjective Date of Service: October 12, 2016 Physician Name Ferrell,Mignon Attending Physician Emre Trejo MD Current Medications Medications (Trade) Dose Ordered Sig/Hever Route PRN Reason Start Time Stop Time Status Last Admin Dose Admin Acetaminophen (Tylenol) 650 mg Q4H PRN ORAL FEVER 10/09/16 21:00 11/08/16 20:59 Albuterol/ Ipratropium (DuoNeb 0.5-3(2.5)mg/3ml) 3 ml Q4H PRN HHN Shortness of Breath 10/09/16 21:00 10/14/16 20:59 Amlodipine Besylate (Norvasc) 10 mg DAILY ORAL 10/10/16 09:00 11/09/16 08:59 10/12/16 08:38 Aspirin (Ecotrin) 81 mg DAILY ORAL 10/10/16 09:00 11/09/16 08:59 10/12/16 08:38 Dextrose (Dextrose 50%) STAT PRN IV Hypoglycemia 10/09/16 21:00 11/08/16 20:59 Duloxetine HCl (Cymbalta) 30 mg DAILY ORAL 10/12/16 09:00 11/11/16 08:59 10/12/16 08:38 Enalaprilat (Vasotec) 2.5 mg Q6H PRN IV sbp more than 160 10/09/16 21:00 11/08/16 20:59 Heparin Sodium (Porcine) (Heparin 5000 units/ml) 5,000 units EVERY 12 HOURS SUBQ 10/09/16 21:00 11/08/16 20:59 10/12/16 08:39 Ibuprofen (Advil) 400 mg Q8H PRN ORAL Mild Pain (Pain Scale 1-3) 10/09/16 21:00 11/08/16 20:59 10/10/16 16:29 Insulin Aspart (NovoLOG) BEFORE MEALS AND HS SUBQ 10/09/16 22:00 11/08/16 21:59 10/12/16 11:29 Insulin Detemir (Levemir) 20 units BID SUBQ 10/12/16 18:00 11/11/16 17:59 Ketorolac Tromethamine (Toradol 30mg) 15 mg Q8H PRN IV Moderate Pain (Pain Scale 4-6) 10/10/16 19:00 10/15/16 18:59 10/12/16 14:24 Nitroglycerin (Ntg) 0.4 mg Q5M PRN SL Prn Chest Pain 10/09/16 20:15 11/08/16 20:14 Ondansetron HCl (Zofran) 4 mg Q6H PRN IVP Nausea & Vomiting 10/09/16 21:00 11/08/16 20:59 Pantoprazole (Protonix) 40 mg DAILY ORAL 10/10/16 09:00 11/09/16 08:59 10/12/16 08:38 Polyethylene Glycol (Miralax) 17 gm DAILYPRN PRN ORAL Constipation 10/09/16 21:00 11/08/16 20:59 10/12/16 00:19 Sitagliptin Phosphate (Januvia) 50 mg BEFORE BREAKFAST ORAL 10/10/16 06:30 11/09/16 06:29 10/12/16 06:11 Temazepam (Restoril) 15 mg HSPRN PRN ORAL Insomnia 10/09/16 21:00 10/16/16 20:59 10/12/16 00:19 Allergies: Coded Allergies: CODEINE (Verified Allergy, Mild, Itching, 08/26/13) SULFA (SULFONAMIDE ANTIBIOTICS) (Verified Adverse Reaction, Mild, 08/26/13) VOMIT ROS Limited/Unobtainable: No Constitutional: Reports: no symptoms HEENT: Reports: other - headache Cardiovascular: Reports: no symptoms Respiratory: Reports: no symptoms Gastrointestinal/Abdominal: Reports: no symptoms Genitourinary: Reports: no symptoms Neurologic/Psychiatric: Reports: no symptoms Subjective 76 YO F admitted with uncontrolled hypertension. Cover for Int Med-Dr Trejo. Await psych consult. C/O headache Objective Last Vital Signs Date Time Temp Pulse Resp B/P Pulse Ox O2 Delivery O2 Flow Rate FiO2 10/12/16 12:00 98.2 74 20 150/75 96 Room Air 10/11/16 07:00 98 Laboratory Tests Test 10/12/16 06:00 White Blood Count 5.5 K/UL (4.8-10.8) Red Blood Count 3.67 M/UL (4.20-5.40) L Hemoglobin 10.8 G/DL (12.0-16.0) L Hematocrit 34.4 % (37.0-47.0) L Mean Corpuscular Volume 94 FL (80-99) Mean Corpuscular Hemoglobin 29.4 PG (27.0-31.0) Mean Corpuscular Hemoglobin Concent 31.4 G/DL (32.0-36.0) L Red Cell Distribution Width 13.1 % (11.6-14.8) Platelet Count 236 K/UL (150-450) Mean Platelet Volume 7.1 FL (6.5-10.1) Neutrophils (%) (Auto) 55.6 % (45.0-75.0) Lymphocytes (%) (Auto) 30.4 % (20.0-45.0) Monocytes (%) (Auto) 10.4 % (1.0-10.0) H Eosinophils (%) (Auto) 2.7 % (0.0-3.0) Basophils (%) (Auto) 1.0 % (0.0-2.0) Sodium Level 137 mEQ/L (135-145) Potassium Level 4.8 mEQ/L (3.4-4.9) Chloride Level 97 mEQ/L (98-107) L Carbon Dioxide Level 29 mEQ/L (20-30) Anion Gap 11 (5-15) Blood Urea Nitrogen 35 mg/dL (7-23) H Creatinine 1.1 mg/dL (0.5-0.9) H Estimat Glomerular Filtration Rate mL/min (>60) Glucose Level 360 mg/dL (74-106) H Calcium Level 9.0 mg/dL (8.6-10.2) Intake and Output 10/11/16 10/12/16 19:00 07:00 Intake Total 1800 ml 540 ml Output Total 800 ml Balance 1000 ml 540 ml Intake Oral 1800 ml 540 ml Output Urine Total 800 ml # Voids 6 Objective General: obese; alert, cooperative, no distress, appears stated age Head: normocephalic, without obvious abnormality, atraumatic Eyes: conjunctivae/corneas clear. PERRL, EOM's intact Throat: lips, mucosa, and tongue normal. MMM Neck: supple, symmetrical, trachea midline, and no JVD Lungs: clear to auscultation bilaterally Heart: regular rate and rhythm, S1, S2 normal, no murmur, click, rub or gallop Abdomen: soft, non-tender, non-distended, bowel sounds normal; no masses or organomegaly Extremities: extremities normal, atraumatic, no cyanosis or edema Pulses: 2+ and symmetric Skin: skin color, texture, turgor normal; no rashes or lesions Neurologic: grossly normal, no focal deficits Assessment/Plan Problem List: (1) PUD (peptic ulcer disease) (2) GERD (gastroesophageal reflux disease) Assessment & Plan: Cont protonix. (3) DDD (degenerative disc disease), lumbar (4) Radiculopathy of lumbar region (5) Accelerated hypertension Assessment & Plan: Cont hydralazine, cardizem and norvasc per cardiology. (6) Diabetes mellitus Assessment & Plan: Uncontrolled. Continue novolog sliding scale and januvia. Add levemir. Await endo consult. (7) Major depression Assessment & Plan: Await psych note. Status: not improved Assessment/Plan Discharge planning MIGNON FERRELL October 12, 2016 15:49
[2016-10-12 16:00] VITALS: BP 157/78
[2016-10-12] MEDS ORDERED: Levemir Flexpen SUBQ SCH (18:00)
[2016-10-12 20:00] VITALS: BP 142/69
--- NOTE | 2016-10-12 23:54 | Cardiology Progress Note ---
Assessment/Plan Assessment/Plan 1. Accelerated HTN, continue amlodipine, DC NSAIDs, will start losartan -HCTZ 50 -12.5mg daily.Goal of HTN at 130/80 mmHg 2. CKD with MITZI , creat down to 1.1. 3. DM, consider ASA and statins. Subjective Subjective Sinus rhythm at 78. Objective Last 24 Hour Vital Signs Date Time Temp Pulse Resp B/P Pulse Ox O2 Delivery O2 Flow Rate FiO2 10/12/16 23:47 97.7 10/12/16 20:00 97.7 79 20 142/69 94 Room Air 10/12/16 17:03 76 15 Room Air 10/12/16 16:00 98.2 84 20 157/78 94 Room Air 10/12/16 12:00 98.2 74 20 150/75 96 Room Air 10/12/16 08:38 69 132/68 10/12/16 08:05 71 18 Room Air 10/12/16 08:00 97.9 70 20 131/64 96 Room Air 10/12/16 04:00 97.0 69 18 132/68 96 Room Air 10/12/16 00:00 97.4 65 18 137/64 97 Room Air Intake and Output 10/11/16 10/12/16 19:00 07:00 Intake Total 1800 ml 540 ml Output Total 800 ml Balance 1000 ml 540 ml Intake Oral 1800 ml 540 ml Output Urine Total 800 ml # Voids 6 2D Echo: LVEF 65%, Mild LVH, Grade I LVDD, RVSP 16 mmHg Laboratory Tests Test 10/12/16 06:00 White Blood Count 5.5 K/UL (4.8-10.8) Red Blood Count 3.67 M/UL (4.20-5.40) L Hemoglobin 10.8 G/DL (12.0-16.0) L Hematocrit 34.4 % (37.0-47.0) L Mean Corpuscular Volume 94 FL (80-99) Mean Corpuscular Hemoglobin 29.4 PG (27.0-31.0) Mean Corpuscular Hemoglobin Concent 31.4 G/DL (32.0-36.0) L Red Cell Distribution Width 13.1 % (11.6-14.8) Platelet Count 236 K/UL (150-450) Mean Platelet Volume 7.1 FL (6.5-10.1) Neutrophils (%) (Auto) 55.6 % (45.0-75.0) Lymphocytes (%) (Auto) 30.4 % (20.0-45.0) Monocytes (%) (Auto) 10.4 % (1.0-10.0) H Eosinophils (%) (Auto) 2.7 % (0.0-3.0) Basophils (%) (Auto) 1.0 % (0.0-2.0) Sodium Level 137 mEQ/L (135-145) Potassium Level 4.8 mEQ/L (3.4-4.9) Chloride Level 97 mEQ/L (98-107) L Carbon Dioxide Level 29 mEQ/L (20-30) Anion Gap 11 (5-15) Blood Urea Nitrogen 35 mg/dL (7-23) H Creatinine 1.1 mg/dL (0.5-0.9) H Estimat Glomerular Filtration Rate mL/min (>60) Glucose Level 360 mg/dL (74-106) H Calcium Level 9.0 mg/dL (8.6-10.2) Objective HEENT: Eyes, pupils are equal and responsive to light and accommodation. Extraocular movements are intact. NECK: Negative JVD, no carotid bruit CHEST: Lungs are clear to auscultation bilaterally without wheezes or rales. CARDIOVASCULAR: Regular rate rhythm, normal S1 and S2 with no murmurs, rubs, or gallops. ABDOMEN: Soft, nontender, and nondistended. Positive bowel sounds. No evidence of hepatosplenomegaly. Currently, no rebound or guarding. EXTREMITIES: No clubbing, cyanosis, or edema. DHAVAL CHRISTIANSON October 12, 2016 23:54
[2016-10-13] VITALS: BP 148/57
[2016-10-13 04:00] VITALS: BP 136/64
[2016-10-13] MEDS: sitaGLIPtin 50mg tab ORAL SCH (06:27)
[2016-10-13] MEDS: NovoLOG Insulin Flexpen SUBQ SCH ×7 (06:29→21:00)
[2016-10-13] MEDS: Miralax 17gm pkt ORAL PRN (06:32)
[2016-10-13] MEDS ORDERED: NovoLOG Insulin Flexpen SUBQ SCH (07:15)
[2016-10-13] MEDS ORDERED: Levemir Flexpen SUBQ SCH (07:15)
[2016-10-13 07:24] LABS: BASOPHILS % (AUTO) 1.8 % (0.0-2.0); EOSINOPHILS % (AUTO) 3.6 % (0.0-3.0); LYMPHOCYTES % (AUTO) 39.9 % (20.0-45.0); MEAN CORPUSCULAR HEMOGLOBIN 29.5 PG (27.0-31.0); MEAN CORPUSCULAR HGB CONC 32.4 G/DL (32.0-36.0); MEAN CORPUSCULAR VOLUME 91 FL (80-99); MEAN PLATELET VOLUME 7.2 FL (6.5-10.1); MONOCYTES % (AUTO) 8.9 % (1.0-10.0); NEUTROPHILS % (AUTO) 45.9 % (45.0-75.0); PLATELET COUNT 240 K/UL (150-450); RED BLOOD COUNT 3.66 M/UL (4.20-5.40); RED CELL DISTRIBUTION WIDTH 12.7 % (11.6-14.8); WHITE BLOOD COUNT 4.8 K/UL (4.8-10.8)
[2016-10-13 07:32] LABS: ANION GAP 14 (5-15); CALCIUM 9.1 mg/dL (8.6-10.2); CARBON DIOXIDE 25 mEQ/L (20-30); CHLORIDE 97 mEQ/L (98-107); CREATININE 0.9 mg/dL (0.5-0.9); HEMOLYSIS 11; POTASSIUM 4.9 mEQ/L (3.4-4.9); SODIUM 136 mEQ/L (135-145)
[2016-10-13 08:00] VITALS: BP 151/68
[2016-10-13] MEDS ORDERED: Hyzaar 12.5mg/50mg tab ORAL SCH (09:00)
[2016-10-13] MEDS: DULoxetine 30mg cap ORAL SCH (09:16)
[2016-10-13] MEDS: Aspirin EC 81mg tab ORAL SCH (09:16)
[2016-10-13] MEDS: Heparin 5000 units/ml inj SUBQ SCH ×2 (09:35→21:00)
[2016-10-13] MEDS: Levemir Flexpen SUBQ SCH ×2 (09:39→18:18)
[2016-10-13 12:00] VITALS: BP 159/74
--- NOTE | 2016-10-13 12:26 | Pulmonology Progress Note ---
Assessment/Plan Assessment/Plan ASSESSMENT chest pain, r/o ACS HTN urgency CHF DM OOC GERD PUD radiculopathy lumbar region ventriculomegaly, possible communicating hydrocephalus hypo Mg elevated creatinine -resolved constipation PLAN OF CARE MD floor serial troponin negative ECG with NSR no acute ischemic changes, thus ruled out for ACS cardio follows BP better with current regimen as per cardio chest pain atypical likely 2 to GERD GI prophylaxis off Lasix, monitor renal parameters, creat down to 1.1 initial CXR with mild interstitial congestion, pro BNP WNL no clinical evidence of CHF exacerbation f/up CXR negative O2 HHN prn, pulse oximetry stable on RA Venous Duplex BLE negative BS management with Januvia and SS of insulin, in 300 range , [id number] continue Levemir , but increase to bid bowel regimen, Dulcolax x [address] head with disproportionate ventriculomegaly. possible communicating hydrocephalus. Mg stable after replacement dc planning need Levemir upon discharge, BS not controlled case discussed and evaluated by supervising physician Subjective Allergies: Coded Allergies: CODEINE (Verified Allergy, Mild, Itching, 08/26/13) SULFA (SULFONAMIDE ANTIBIOTICS) (Verified Adverse Reaction, Mild, 08/26/13) VOMIT Subjective denies chest pain, SOB on RA sat stable c/o abdominal discomfort and nausea, no BM for few days Objective Last 24 Hour Vital Signs Date Time Temp Pulse Resp B/P Pulse Ox O2 Delivery O2 Flow Rate FiO2 10/13/16 09:16 151/68 10/13/16 09:16 68 151/68 10/13/16 08:00 97.7 68 20 151/68 94 Room Air 10/13/16 07:53 71 15 Room Air 10/13/16 04:00 97.5 62 20 136/64 95 Room Air 10/13/16 00:00 97.5 68 20 148/57 98 Room Air 10/12/16 23:47 97.7 10/12/16 20:00 97.7 79 20 142/69 94 Room Air 10/12/16 17:03 76 15 Room Air 10/12/16 16:00 98.2 84 20 157/78 94 Room Air Intake and Output 10/12/16 10/13/16 19:00 07:00 Intake Total 320 ml Balance 320 ml Intake Oral 320 ml # Voids 4 3 # Bowel Movements 2 Objective General Appearance: WD/WN, no acute distress HEENT: normocephalic, atraumatic, anicteric, mucous membranes moist Respiratory/Chest: lungs clear, no respiratory distress, no accessory muscle use Cardiovascular: normal peripheral pulses, normal rate, regular rhythm, no JVD Abdomen: soft, non tender Genitourinary: normal external genitalia Extremities: no edema, pedal pulses normal Neurologic/Psychiatric: alert, oriented x 3, responsive Musculoskeletal: normal muscle bulk Laboratory Tests 10/13/16 05:30: White Blood Count 4.8, Red Blood Count 3.66L, Hemoglobin 10.8L, Hematocrit 33.3L , Mean Corpuscular Volume 91, Mean Corpuscular Hemoglobin 29.5, Mean Corpuscular Hemoglobin Concent 32.4, Red Cell Distribution Width 12.7, Platelet Count 240, Mean Platelet Volume 7.2, Neutrophils (%) (Auto) 45.9, Lymphocytes (% ) (Auto) 39.9, Monocytes (%) (Auto) 8.9, Eosinophils (%) (Auto) 3.6H, Basophils (%) (Auto) 1.8, Sodium Level 136, Potassium Level 4.9, Chloride Level 97L, Carbon Dioxide Level 25, Anion Gap 14, Blood Urea Nitrogen 26H, Creatinine 0.9, Estimat Glomerular Filtration Rate , Glucose Level 227#H, Calcium Level 9.1 Current Medications Medications (Trade) Dose Ordered Sig/Hever Route PRN Reason Start Time Stop Time Status Last Admin Dose Admin Acetaminophen (Tylenol) 650 mg Q4H PRN ORAL FEVER 10/09/16 21:00 11/08/16 20:59 10/12/16 22:45 Albuterol/ Ipratropium (DuoNeb 0.5-3(2.5)mg/3ml) 3 ml Q4H PRN HHN Shortness of Breath 10/09/16 21:00 10/14/16 20:59 Amlodipine Besylate (Norvasc) 10 mg DAILY ORAL 10/10/16 09:00 11/09/16 08:59 10/13/16 09:16 Aspirin (Ecotrin) 81 mg DAILY ORAL 10/10/16 09:00 11/09/16 08:59 10/13/16 09:16 Dextrose (Dextrose 50%) STAT PRN IV Hypoglycemia 10/13/16 07:15 11/12/16 07:14 Duloxetine HCl (Cymbalta) 30 mg DAILY ORAL 10/12/16 09:00 11/11/16 08:59 10/13/16 09:16 Enalaprilat (Vasotec) 2.5 mg Q6H PRN IV sbp more than 160 10/09/16 21:00 11/08/16 20:59 HCTZ/Losartan Potassium (Hyzaar 50-12.5) 1 tab DAILY ORAL 10/13/16 09:00 11/12/16 08:59 10/13/16 09:16 Heparin Sodium (Porcine) (Heparin 5000 units/ml) 5,000 units EVERY 12 HOURS SUBQ 10/09/16 21:00 11/08/16 20:59 10/13/16 09:35 Insulin Aspart (NovoLOG) BEFORE MEALS AND HS SUBQ 10/09/16 22:00 11/08/16 21:59 10/13/16 12:11 Insulin Aspart (NovoLOG) 10 units NOVOTIAC SUBQ 10/13/16 09:00 11/12/16 08:59 10/13/16 12:12 Insulin Detemir (Levemir) 25 units BID SUBQ 10/13/16 09:00 11/12/16 08:59 10/13/16 09:39 Ketorolac Tromethamine (Toradol 30mg) 15 mg Q8H PRN IV Moderate Pain (Pain Scale 4-6) 10/10/16 19:00 10/15/16 18:59 10/12/16 14:24 Nitroglycerin (Ntg) 0.4 mg Q5M PRN SL Prn Chest Pain 10/09/16 20:15 11/08/16 20:14 Ondansetron HCl (Zofran) 4 mg Q6H PRN IVP Nausea & Vomiting 10/09/16 21:00 11/08/16 20:59 Pantoprazole (Protonix) 40 mg DAILY ORAL 10/10/16 09:00 11/09/16 08:59 10/13/16 09:16 Polyethylene Glycol (Miralax) 17 gm DAILYPRN PRN ORAL Constipation 10/09/16 21:00 11/08/16 20:59 10/13/16 06:32 Sitagliptin Phosphate (Januvia) 50 mg BEFORE BREAKFAST ORAL 10/10/16 06:30 11/09/16 06:29 10/13/16 06:27 Temazepam (Restoril) 15 mg HSPRN PRN ORAL Insomnia 10/09/16 21:00 10/16/16 20:59 10/12/16 22:39 [facility] ([facility])Tami NP October 13, 2016 12:26
--- NOTE | 2016-10-13 14:45 | Consultation ---
DATE OF CONSULTATION: 10/13/2016 ENDOCRINOLOGY CONSULTATION CONSULTING PHYSICIAN: Ant Cordero M.D. REFERRING PHYSICIAN: Emre Trejo M.D. REASON FOR CONSULTATION: Diabetes management. HISTORY OF PRESENT ILLNESS: This is a 76-year-old female obese with past medical history of diabetes, treated with insulin, followed by Dr. Trejo for many years. Diabetes was diagnosed 20 years ago, the patient is on insulin 70/30 about 50 units before breakfast and 50 units before dinner. The patient was admitted to the hospital at [facility] with a chief complaint of elevated blood pressure. I was called to manage diabetes. PAST MEDICAL HISTORY: 1. Type 2 diabetes. 2. Hypertension. 3. Degenerative joint disease. 4. Radiculopathy. 5. GERD. 6. Morbid obesity. 7. Duodenal ulcer. PAST SURGICAL HISTORY: 1. Cholecystectomy. 2. Appendectomy. 3. Hiatal hernia repair. 5. Hysterectomy. 4MEDICATIONS: Reviewed and reconciled. ALLERGIES: To codeine and sulfa. SOCIAL HISTORY: The patient is a . No smoking, alcohol or drug use. REVIEW OF SYSTEMS: As per history of present illness. PHYSICAL EXAMINATION: VITAL SIGNS: Blood pressure is 160/80, pulse 70, temperature 98.0 degrees, and respiratory rate 18. HEAD AND NECK: No JVD. HEART: Regular. LUNGS: Clear. ABDOMEN: Positive bowel sounds. EXTREMITIES: No clubbing, cyanosis or edema. LABORATORY AND DIAGNOSTIC DATA: WBC 5, hemoglobin 10, hematocrit 34, and platelets of 236,000. Sodium 137, potassium 4.7, chloride 97, bicarbonate 29, BUN 30, creatinine 1.1, and glucose of 360. A1c of 8.7. DIAGNOSES: 1. Hypertension, accelerated. 2. Diabetes out of control. 3. Chronic kidney disease. 4. Obesity. PLAN: 1. We will increase Levemir to 25 units b.i.d. 2. We will add meal time Novolog. 3. Continue Januvia. 4. Continue sliding scale with NovoLog. 5. We will continue to follow the patient during the hospital for the management of diabetes. Thank you, for the courtesy of this consultation. Ant Nazemi, M.D. DR: Doug JOB#: [id number] CC: [email or web address]
--- NOTE | 2016-10-13 15:07 | Internal Med Progress Note ---
Subjective Date of Service: October 13, 2016 Physician Name Isael Ferrell Attending Physician Emre Trejo MD Current Medications Medications (Trade) Dose Ordered Sig/Hever Route PRN Reason Start Time Stop Time Status Last Admin Dose Admin Acetaminophen (Tylenol) 650 mg Q4H PRN ORAL FEVER 10/09/16 21:00 11/08/16 20:59 10/12/16 22:45 Albuterol/ Ipratropium (DuoNeb 0.5-3(2.5)mg/3ml) 3 ml Q4H PRN HHN Shortness of Breath 10/09/16 21:00 10/14/16 20:59 Amlodipine Besylate (Norvasc) 10 mg DAILY ORAL 10/10/16 09:00 11/09/16 08:59 10/13/16 09:16 Aspirin (Ecotrin) 81 mg DAILY ORAL 10/10/16 09:00 11/09/16 08:59 10/13/16 09:16 Dextrose (Dextrose 50%) STAT PRN IV Hypoglycemia 10/13/16 07:15 11/12/16 07:14 Duloxetine HCl (Cymbalta) 30 mg DAILY ORAL 10/12/16 09:00 11/11/16 08:59 10/13/16 09:16 Enalaprilat (Vasotec) 2.5 mg Q6H PRN IV sbp more than 160 10/09/16 21:00 11/08/16 20:59 HCTZ/Losartan Potassium (Hyzaar 50-12.5) 1 tab DAILY ORAL 10/13/16 09:00 11/12/16 08:59 10/13/16 09:16 Heparin Sodium (Porcine) (Heparin 5000 units/ml) 5,000 units EVERY 12 HOURS SUBQ 10/09/16 21:00 11/08/16 20:59 10/13/16 09:35 Insulin Aspart (NovoLOG) BEFORE MEALS AND HS SUBQ 10/09/16 22:00 11/08/16 21:59 10/13/16 12:11 Insulin Aspart (NovoLOG) 10 units NOVOTIAC SUBQ 10/13/16 09:00 11/12/16 08:59 10/13/16 12:12 Insulin Detemir (Levemir) 25 units BID SUBQ 10/13/16 09:00 11/12/16 08:59 10/13/16 09:39 Ketorolac Tromethamine (Toradol 30mg) 15 mg Q8H PRN IV Moderate Pain (Pain Scale 4-6) 10/10/16 19:00 10/15/16 18:59 10/12/16 14:24 Nitroglycerin (Ntg) 0.4 mg Q5M PRN SL Prn Chest Pain 10/09/16 20:15 11/08/16 20:14 Ondansetron HCl (Zofran) 4 mg Q6H PRN IVP Nausea & Vomiting 10/09/16 21:00 11/08/16 20:59 Pantoprazole (Protonix) 40 mg DAILY ORAL 10/10/16 09:00 11/09/16 08:59 10/13/16 09:16 Polyethylene Glycol (Miralax) 17 gm DAILYPRN PRN ORAL Constipation 10/09/16 21:00 11/08/16 20:59 10/13/16 06:32 Sitagliptin Phosphate (Januvia) 50 mg BEFORE BREAKFAST ORAL 10/10/16 06:30 11/09/16 06:29 10/13/16 06:27 Temazepam (Restoril) 15 mg HSPRN PRN ORAL Insomnia 10/09/16 21:00 10/16/16 20:59 10/12/16 22:39 Allergies: Coded Allergies: CODEINE (Verified Allergy, Mild, Itching, 08/26/13) SULFA (SULFONAMIDE ANTIBIOTICS) (Verified Adverse Reaction, Mild, 08/26/13) VOMIT ROS Limited/Unobtainable: No Constitutional: Reports: no symptoms HEENT: Reports: other - headache Cardiovascular: Reports: no symptoms Respiratory: Reports: no symptoms Gastrointestinal/Abdominal: Reports: no symptoms Genitourinary: Reports: no symptoms Neurologic/Psychiatric: Reports: no symptoms Subjective 76 YO F admitted with uncontrolled hypertension. Cover for Int Med-Dr Trejo. Await psych consult. C/O headache Objective Last Vital Signs Date Time Temp Pulse Resp B/P Pulse Ox O2 Delivery O2 Flow Rate FiO2 10/13/16 12:00 98.1 67 20 159/74 97 Room Air 10/11/16 07:00 98 Laboratory Tests Test 10/13/16 05:30 White Blood Count 4.8 K/UL (4.8-10.8) Red Blood Count 3.66 M/UL (4.20-5.40) L Hemoglobin 10.8 G/DL (12.0-16.0) L Hematocrit 33.3 % (37.0-47.0) L Mean Corpuscular Volume 91 FL (80-99) Mean Corpuscular Hemoglobin 29.5 PG (27.0-31.0) Mean Corpuscular Hemoglobin Concent 32.4 G/DL (32.0-36.0) Red Cell Distribution Width 12.7 % (11.6-14.8) Platelet Count 240 K/UL (150-450) Mean Platelet Volume 7.2 FL (6.5-10.1) Neutrophils (%) (Auto) 45.9 % (45.0-75.0) Lymphocytes (%) (Auto) 39.9 % (20.0-45.0) Monocytes (%) (Auto) 8.9 % (1.0-10.0) Eosinophils (%) (Auto) 3.6 % (0.0-3.0) H Basophils (%) (Auto) 1.8 % (0.0-2.0) Sodium Level 136 mEQ/L (135-145) Potassium Level 4.9 mEQ/L (3.4-4.9) Chloride Level 97 mEQ/L (98-107) L Carbon Dioxide Level 25 mEQ/L (20-30) Anion Gap 14 (5-15) Blood Urea Nitrogen 26 mg/dL (7-23) H Creatinine 0.9 mg/dL (0.5-0.9) Estimat Glomerular Filtration Rate mL/min (>60) Glucose Level 227 mg/dL (74-106) #H Calcium Level 9.1 mg/dL (8.6-10.2) Intake and Output 10/12/16 10/13/16 19:00 07:00 Intake Total 320 ml Balance 320 ml Intake Oral 320 ml # Voids 4 3 # Bowel Movements 2 Objective General: obese; alert, cooperative, no distress, appears stated age Head: normocephalic, without obvious abnormality, atraumatic Eyes: conjunctivae/corneas clear. PERRL, EOM's intact Throat: lips, mucosa, and tongue normal. MMM Neck: supple, symmetrical, trachea midline, and no JVD Lungs: clear to auscultation bilaterally Heart: regular rate and rhythm, S1, S2 normal, no murmur, click, rub or gallop Abdomen: soft, non-tender, non-distended, bowel sounds normal; no masses or organomegaly Extremities: extremities normal, atraumatic, no cyanosis or edema Pulses: 2+ and symmetric Skin: skin color, texture, turgor normal; no rashes or lesions Neurologic: grossly normal, no focal deficits Assessment/Plan Problem List: (1) PUD (peptic ulcer disease) (2) GERD (gastroesophageal reflux disease) Assessment & Plan: Cont protonix. (3) DDD (degenerative disc disease), lumbar (4) Radiculopathy of lumbar region (5) Accelerated hypertension Assessment & Plan: Cont hydralazine, cardizem and norvasc per cardiology. (6) Diabetes mellitus Assessment & Plan: Uncontrolled. Continue novolog sliding scale and januvia. Increase levemir - see endo consult. (7) Major depression Assessment & Plan: Await psych consult. Status: progressing Assessment/Plan Discharge planning ISAEL FERRELL October 13, 2016 15:07
[2016-10-13 16:00] VITALS: BP 144/65
[2016-10-13] MEDS: Norco 10mg/325mg tab ORAL PRN (17:03)
[2016-10-13 20:00] VITALS: BP 139/63
--- NOTE | 2016-10-13 21:43 | Cardiology Progress Note ---
Assessment/Plan Assessment/Plan 1. Accelerated HTN, continue amlodipine, increase losartan -HCTZ 50-12.5mg twice daily.Goal of HTN at 130/80 mmHg 2. MITZI , resolved 3. DM, uncontrolled, consider ASA and statins. Subjective Subjective Transferred to the med-surg unit. No cardiac events. Objective Last 24 Hour Vital Signs Date Time Temp Pulse Resp B/P Pulse Ox O2 Delivery O2 Flow Rate FiO2 10/13/16 20:27 67 17 Room Air 10/13/16 20:00 98.0 73 18 139/63 94 Room Air 10/13/16 16:00 97.9 70 20 144/65 95 Room Air 10/13/16 12:00 98.1 67 20 159/74 97 Room Air 10/13/16 09:16 151/68 10/13/16 09:16 68 151/68 10/13/16 08:00 97.7 68 20 151/68 94 Room Air 10/13/16 07:53 71 15 Room Air 10/13/16 04:00 97.5 62 20 136/64 95 Room Air 10/13/16 00:00 97.5 68 20 148/57 98 Room Air 10/12/16 23:47 97.7 Intake and Output 10/12/16 10/13/16 19:00 07:00 Intake Total 320 ml Balance 320 ml Intake Oral 320 ml # Voids 4 3 # Bowel Movements 2 2D Echo: LVEF 65%, Mild LVH, Grade I LVDD, RVSP 16 mmHg Laboratory Tests Test 10/13/16 05:30 White Blood Count 4.8 K/UL (4.8-10.8) Red Blood Count 3.66 M/UL (4.20-5.40) L Hemoglobin 10.8 G/DL (12.0-16.0) L Hematocrit 33.3 % (37.0-47.0) L Mean Corpuscular Volume 91 FL (80-99) Mean Corpuscular Hemoglobin 29.5 PG (27.0-31.0) Mean Corpuscular Hemoglobin Concent 32.4 G/DL (32.0-36.0) Red Cell Distribution Width 12.7 % (11.6-14.8) Platelet Count 240 K/UL (150-450) Mean Platelet Volume 7.2 FL (6.5-10.1) Neutrophils (%) (Auto) 45.9 % (45.0-75.0) Lymphocytes (%) (Auto) 39.9 % (20.0-45.0) Monocytes (%) (Auto) 8.9 % (1.0-10.0) Eosinophils (%) (Auto) 3.6 % (0.0-3.0) H Basophils (%) (Auto) 1.8 % (0.0-2.0) Sodium Level 136 mEQ/L (135-145) Potassium Level 4.9 mEQ/L (3.4-4.9) Chloride Level 97 mEQ/L (98-107) L Carbon Dioxide Level 25 mEQ/L (20-30) Anion Gap 14 (5-15) Blood Urea Nitrogen 26 mg/dL (7-23) H Creatinine 0.9 mg/dL (0.5-0.9) Estimat Glomerular Filtration Rate mL/min (>60) Glucose Level 227 mg/dL (74-106) #H Calcium Level 9.1 mg/dL (8.6-10.2) Objective HEENT: Eyes, pupils are equal and responsive to light and accommodation. Extraocular movements are intact. NECK: Negative JVD, no carotid bruit CHEST: Lungs are clear to auscultation bilaterally without wheezes or rales. CARDIOVASCULAR: Regular rate rhythm, normal S1 and S2 with no murmurs, rubs, or gallops. ABDOMEN: Soft, nontender, and nondistended. Positive bowel sounds. No evidence of hepatosplenomegaly. Currently, no rebound or guarding. EXTREMITIES: No clubbing, cyanosis, or edema. DHAVAL CHRISTIANSON October 13, 2016 21:43
--- NOTE | 2016-10-13 22:58 | Consultation ---
History of Present Illness General Date patient seen: October 11, 2016 Chief Complaint: Hypertension Referring physician: dr Trejo Reason for Consultation: dyspnea Present Illness HPI 76-year-old female, presents with chief complaint of elevated blood pressure. the pt has hx of depression. recently more depressed due to domestic issues. the pt's two grand , children that she raised are rebelious and the pt is stressed out. target sxs: depressed mood, anhedonia. decrease energy insomnia and anxiety. Allergies: Coded Allergies: CODEINE (Verified Allergy, Mild, Itching, 08/26/13) SULFA (SULFONAMIDE ANTIBIOTICS) (Verified Adverse Reaction, Mild, 08/26/13) VOMIT Medication History Scheduled Amlodipine Besylate (Norvasc), 10 MG ORAL DAILY, (Reported) Aspirin* (Aspir 81*), 81 MG ORAL DAILY, (Reported) Docusate Sodium (Docusate Sodium), 100 MG ORAL BID, (Reported) Ferrous Sulfate (Ferosul), 325 MG PO BID, (Reported) Hydrochlorothiazide* (Hydrochlorothiazide*), 25 MG ORAL DAILY, (Reported) Insuln Asp Prt/Insulin Aspart (Novolog Mix 70-30 Flexpen Syrn), 40 UNIT SQ BEFORE BREAKFAST, (Reported) Insuln Asp Prt/Insulin Aspart (Novolog Mix 70-30 Flexpen Syrn), 30 UNIT SQ BEFORE DINNER, (Reported) Lansoprazole* (Prevacid*), 30 MG ORAL DAILY, (Reported) Metformin Hcl* (Metformin Hcl*), 1,000 MG ORAL TID, (Reported) Simvastatin (Zocor), 20 MG ORAL BEDTIME, (Reported) Sitagliptin (Januvia), 100 MG ORAL BEFORE BREAKFAST, (Reported) Valsartan/Hydrochlorothiazide 320-25MG (Diovan Hct 320-25 Mg Tablet), 1 TAB ORAL DAILY, (Reported) Scheduled PRN Hydrocodone Bit/Acetaminophen (Vicodin 5-300 Mg Tablet), 1 TAB ORAL Q4H PRN for For Pain, (Reported) Zolpidem Tartrate* (Ambien*), 5 MG ORAL BEDTIME PRN for Insomnia, (Reported) Miscellaneous Medications Unable to Obtain Medications (Unable To Obtain Meds), (Reported) Patient History History Provided By: Patient, Medical Record, PMD Healthcare decision maker pt A&Ox4 Resuscitation status Full Code Advanced Directive on File Past Medical/Surgical History Past Medical/Surgical History: (1) CHF (congestive heart failure) (2) Diabetes mellitus (3) Accelerated hypertension (4) Chest pain with high risk of acute coronary syndrome (5) ACS (6) PUD (peptic ulcer disease) (7) GERD (gastroesophageal reflux disease) (8) DDD (degenerative disc disease), lumbar (9) Radiculopathy of lumbar region (10) Major depression Review of Systems Constitutional: Denies: chills, fever, malaise, no symptoms, other, see HPI, sweats, weakness Eye: Denies: acuity changes, blurred vision, discharge, double vision, eye pain , no symptoms, nose congestion, nose pain, other, see HPI, tearing ENT: Denies: ear discharge, ear pain, hearing loss, mouth pain, nasal discharge , no symptoms, nose congestion, nose pain, other, see HPI, throat pain, throat swelling Respiratory: Denies: FLOYD, cough, no symptoms, orthopnea, other, see HPI, shortness of breath, sputum, stridor, wheezing Cardiovascular: Denies: PND, chest pain, edema, no symptoms, other, palpitations, see HPI, syncope Gastrointestinal: Denies: abdominal pain, constipation, diarrhea, hematemesis, melena, nausea, no symptoms, other, see HPI, vomiting Genitourinary: Denies: discharge, dysuria, frequency, hematuria, incontinence, no symptoms, other, pain, retention, see HPI, urgency, vag bleed/dc Musculoskeletal: Denies: back pain, gout, joint pain, joint swelling, muscle pain, muscle stiffness, no symptoms, other, see HPI Skin: Denies: change in color, change in hair/nails, dryness, lesions, no symptoms, other, rash, see HPI Psychiatric: Reports: anxiety, depressed feelings, emotional problems Neurological: Denies: dizziness, focal weakness, headache, no symptoms, numbness, other, paresthesia, see HPI, seizure, syncope, tingling, tremors Endocrine: Denies: excessive sweating, flushing, increased thirst, increased urine, intolerance to temperature, no symptoms, other, see HPI, unexplained weight loss Hematologic/Lymphatic: Denies: anemia, blood clots, diathesis, easy bleeding, easy bruising, no symptoms, other, see HPI, swollen glands Physical Exam General Appearance: alert, obese Neurologic: alert, oriented x 3, responsive, depressed affect Last 24 Hour Vital Signs Date Time Temp Pulse Resp B/P Pulse Ox O2 Delivery O2 Flow Rate FiO2 10/13/16 20:27 67 17 Room Air 10/13/16 20:00 98.0 73 18 139/63 94 Room Air 10/13/16 16:00 97.9 70 20 144/65 95 Room Air 10/13/16 12:00 98.1 67 20 159/74 97 Room Air 10/13/16 09:16 151/68 10/13/16 09:16 68 151/68 10/13/16 08:00 97.7 68 20 151/68 94 Room Air 10/13/16 07:53 71 15 Room Air 10/13/16 04:00 97.5 62 20 136/64 95 Room Air 10/13/16 00:00 97.5 68 20 148/57 98 Room Air 10/12/16 23:47 97.7 Intake and Output 10/12/16 10/13/16 19:00 07:00 Intake Total 320 ml Balance 320 ml Intake Oral 320 ml # Voids 4 3 # Bowel Movements 2 Laboratory Tests Test 10/13/16 05:30 White Blood Count 4.8 K/UL (4.8-10.8) Red Blood Count 3.66 M/UL (4.20-5.40) L Hemoglobin 10.8 G/DL (12.0-16.0) L Hematocrit 33.3 % (37.0-47.0) L Mean Corpuscular Volume 91 FL (80-99) Mean Corpuscular Hemoglobin 29.5 PG (27.0-31.0) Mean Corpuscular Hemoglobin Concent 32.4 G/DL (32.0-36.0) Red Cell Distribution Width 12.7 % (11.6-14.8) Platelet Count 240 K/UL (150-450) Mean Platelet Volume 7.2 FL (6.5-10.1) Neutrophils (%) (Auto) 45.9 % (45.0-75.0) Lymphocytes (%) (Auto) 39.9 % (20.0-45.0) Monocytes (%) (Auto) 8.9 % (1.0-10.0) Eosinophils (%) (Auto) 3.6 % (0.0-3.0) H Basophils (%) (Auto) 1.8 % (0.0-2.0) Sodium Level 136 mEQ/L (135-145) Potassium Level 4.9 mEQ/L (3.4-4.9) Chloride Level 97 mEQ/L (98-107) L Carbon Dioxide Level 25 mEQ/L (20-30) Anion Gap 14 (5-15) Blood Urea Nitrogen 26 mg/dL (7-23) H Creatinine 0.9 mg/dL (0.5-0.9) Estimat Glomerular Filtration Rate mL/min (>60) Glucose Level 227 mg/dL (74-106) #H Calcium Level 9.1 mg/dL (8.6-10.2) Height (Feet): 5 Height (Inches): 7.00 Weight (Pounds): 224 Medications Current Medications Medications (Trade) Dose Ordered Sig/Hever Route PRN Reason Start Time Stop Time Status Last Admin Dose Admin Acetaminophen (Tylenol) 650 mg Q4H PRN ORAL FEVER 10/09/16 21:00 11/08/16 20:59 10/12/16 22:45 Acetaminophen/ Hydrocodone Bitart ([place] 10/325) 1 ea Q4H PRN ORAL For Pain 10/13/16 15:30 10/20/16 15:29 10/13/16 17:03 Albuterol/ Ipratropium (DuoNeb 0.5-3(2.5)mg/3ml) 3 ml Q4H PRN HHN Shortness of Breath 10/09/16 21:00 10/14/16 20:59 Amlodipine Besylate (Norvasc) 10 mg DAILY ORAL 10/10/16 09:00 11/09/16 08:59 10/13/16 09:16 Aspirin (Ecotrin) 81 mg DAILY ORAL 10/10/16 09:00 11/09/16 08:59 10/13/16 09:16 Atorvastatin Calcium (Lipitor) 20 mg BEDTIME ORAL 10/14/16 21:00 11/13/16 20:59 Dextrose (Dextrose 50%) STAT PRN IV Hypoglycemia 10/13/16 07:15 11/12/16 07:14 Duloxetine HCl (Cymbalta) 30 mg DAILY ORAL 10/12/16 09:00 11/11/16 08:59 10/13/16 09:16 Enalaprilat (Vasotec) 2.5 mg Q6H PRN IV sbp more than 160 10/09/16 21:00 11/08/16 20:59 HCTZ/Losartan Potassium (Hyzaar 50-12.5) 1 tab BID ORAL 10/14/16 09:00 11/13/16 08:59 Heparin Sodium (Porcine) (Heparin 5000 units/ml) 5,000 units EVERY 12 HOURS SUBQ 10/09/16 21:00 11/08/16 20:59 10/13/16 21:00 Insulin Aspart (NovoLOG) BEFORE MEALS AND HS SUBQ 10/09/16 22:00 11/08/16 21:59 10/13/16 21:00 Insulin Aspart (NovoLOG) 10 units NOVOTIAC SUBQ 10/13/16 09:00 11/12/16 08:59 10/13/16 17:05 Insulin Detemir (Levemir) 25 units BID SUBQ 10/13/16 09:00 11/12/16 08:59 10/13/16 18:18 Nitroglycerin (Ntg) 0.4 mg Q5M PRN SL Prn Chest Pain 10/09/16 20:15 11/08/16 20:14 Ondansetron HCl (Zofran) 4 mg Q6H PRN IVP Nausea & Vomiting 10/09/16 21:00 11/08/16 20:59 Pantoprazole (Protonix) 40 mg DAILY ORAL 10/10/16 09:00 11/09/16 08:59 10/13/16 09:16 Polyethylene Glycol (Miralax) 17 gm DAILYPRN PRN ORAL Constipation 10/09/16 21:00 11/08/16 20:59 10/13/16 06:32 Sitagliptin Phosphate (Januvia) 50 mg BEFORE BREAKFAST ORAL 10/10/16 06:30 11/09/16 06:29 10/13/16 06:27 Temazepam (Restoril) 15 mg HSPRN PRN ORAL Insomnia 10/09/16 21:00 10/16/16 20:59 10/12/16 22:39 Assessment/Plan Status: not improved Assessment/Plan mdd -cymbolta 30mg po qam -social service to address housing issue Antonino Goldman M.D. October 13, 2016 22:58
[2016-10-14] VITALS: BP 135/63
[2016-10-14 04:00] VITALS: BP 131/66
[2016-10-14] MEDS: sitaGLIPtin 50mg tab ORAL SCH (06:11)
[2016-10-14] MEDS: NovoLOG Insulin Flexpen SUBQ SCH ×4 (06:30→12:46)
[2016-10-14 08:00] VITALS: BP 135/64
[2016-10-14] MEDS ORDERED: Hyzaar 12.5mg/50mg tab ORAL SCH (09:00)
[2016-10-14 09:28] LABS: BASOPHILS % (AUTO) 1.8 % (0.0-2.0); EOSINOPHILS % (AUTO) 3.2 % (0.0-3.0); LYMPHOCYTES % (AUTO) 34.2 % (20.0-45.0); MEAN CORPUSCULAR HEMOGLOBIN 28.8 PG (27.0-31.0); MEAN CORPUSCULAR HGB CONC 31.2 G/DL (32.0-36.0); MEAN CORPUSCULAR VOLUME 92 FL (80-99); MEAN PLATELET VOLUME 6.6 FL (6.5-10.1); MONOCYTES % (AUTO) 7.4 % (1.0-10.0); NEUTROPHILS % (AUTO) 53.4 % (45.0-75.0); PLATELET COUNT 251 K/UL (150-450); RED BLOOD COUNT 4.02 M/UL (4.20-5.40); WHITE BLOOD COUNT 4.3 K/UL (4.8-10.8)
[2016-10-14 09:56] LABS: ANION GAP 15 (5-15); CALCIUM 9.2 mg/dL (8.6-10.2); CARBON DIOXIDE 24 mEQ/L (20-30); CHLORIDE 92 mEQ/L (98-107); CREATININE 1.1 mg/dL (0.5-0.9); HEMOLYSIS 21; POTASSIUM 4.9 mEQ/L (3.4-4.9); SODIUM 131 mEQ/L (135-145)
[2016-10-14] MEDS ORDERED: LEVEMIR FL100 UNIT/1 SUBQ (10:14)
--- NOTE | 2016-10-14 10:18 | Internal Med Progress Note ---
Subjective Date of Service: October 14, 2016 Physician Name Mignon Ferrell Attending Physician Emre Trejo MD Current Medications Medications (Trade) Dose Ordered Sig/Hever Route PRN Reason Start Time Stop Time Status Last Admin Dose Admin Acetaminophen (Tylenol) 650 mg Q4H PRN ORAL FEVER 10/09/16 21:00 11/08/16 20:59 10/12/16 22:45 Acetaminophen/ Hydrocodone Bitart ([place] 10/325) 1 ea Q4H PRN ORAL For Pain 10/13/16 15:30 10/20/16 15:29 10/13/16 17:03 Albuterol/ Ipratropium (DuoNeb 0.5-3(2.5)mg/3ml) 3 ml Q4H PRN HHN Shortness of Breath 10/09/16 21:00 10/14/16 20:59 Amlodipine Besylate (Norvasc) 10 mg DAILY ORAL 10/10/16 09:00 11/09/16 08:59 10/13/16 09:16 Aspirin (Ecotrin) 81 mg DAILY ORAL 10/10/16 09:00 11/09/16 08:59 10/13/16 09:16 Atorvastatin Calcium (Lipitor) 20 mg BEDTIME ORAL 10/14/16 21:00 11/13/16 20:59 Dextrose (Dextrose 50%) STAT PRN IV Hypoglycemia 10/13/16 07:15 11/12/16 07:14 Duloxetine HCl (Cymbalta) 30 mg DAILY ORAL 10/12/16 09:00 11/11/16 08:59 10/13/16 09:16 Enalaprilat (Vasotec) 2.5 mg Q6H PRN IV sbp more than 160 10/09/16 21:00 11/08/16 20:59 HCTZ/Losartan Potassium (Hyzaar 50-12.5) 1 tab BID ORAL 10/14/16 09:00 11/13/16 08:59 Heparin Sodium (Porcine) (Heparin 5000 units/ml) 5,000 units EVERY 12 HOURS SUBQ 10/09/16 21:00 11/08/16 20:59 10/13/16 21:00 Insulin Aspart (NovoLOG) BEFORE MEALS AND HS SUBQ 10/09/16 22:00 11/08/16 21:59 10/14/16 07:13 Insulin Aspart (NovoLOG) 10 units NOVOTIAC SUBQ 10/13/16 09:00 11/12/16 08:59 10/14/16 06:30 Insulin Detemir (Levemir) 25 units BID SUBQ 10/13/16 09:00 11/12/16 08:59 10/13/16 18:18 Nitroglycerin (Ntg) 0.4 mg Q5M PRN SL Prn Chest Pain 10/09/16 20:15 11/08/16 20:14 Ondansetron HCl (Zofran) 4 mg Q6H PRN IVP Nausea & Vomiting 10/09/16 21:00 11/08/16 20:59 Pantoprazole (Protonix) 40 mg DAILY ORAL 10/10/16 09:00 11/09/16 08:59 10/13/16 09:16 Polyethylene Glycol (Miralax) 17 gm DAILYPRN PRN ORAL Constipation 10/09/16 21:00 11/08/16 20:59 10/13/16 06:32 Sitagliptin Phosphate (Januvia) 50 mg BEFORE BREAKFAST ORAL 10/10/16 06:30 11/09/16 06:29 10/14/16 06:11 Temazepam (Restoril) 15 mg HSPRN PRN ORAL Insomnia 10/09/16 21:00 10/16/16 20:59 10/14/16 00:51 Allergies: Coded Allergies: CODEINE (Verified Allergy, Mild, Itching, 08/26/13) SULFA (SULFONAMIDE ANTIBIOTICS) (Verified Adverse Reaction, Mild, 08/26/13) VOMIT ROS Limited/Unobtainable: No Constitutional: Reports: no symptoms HEENT: Reports: no symptoms Cardiovascular: Reports: no symptoms Respiratory: Reports: no symptoms Gastrointestinal/Abdominal: Reports: no symptoms Genitourinary: Reports: no symptoms Neurologic/Psychiatric: Reports: no symptoms Subjective 76 YO F admitted with uncontrolled hypertension. Cover for Molly Trejo. C /O headache Objective Last Vital Signs Date Time Temp Pulse Resp B/P Pulse Ox O2 Delivery O2 Flow Rate FiO2 10/14/16 08:00 96.9 72 17 135/64 99 Room Air 10/11/16 07:00 98 Laboratory Tests Test 10/14/16 09:10 White Blood Count 4.3 K/UL (4.8-10.8) L Red Blood Count 4.02 M/UL (4.20-5.40) L Hemoglobin 11.6 G/DL (12.0-16.0) L Hematocrit 37.1 % (37.0-47.0) Mean Corpuscular Volume 92 FL (80-99) Mean Corpuscular Hemoglobin 28.8 PG (27.0-31.0) Mean Corpuscular Hemoglobin Concent 31.2 G/DL (32.0-36.0) L Red Cell Distribution Width 13.0 % (11.6-14.8) Platelet Count 251 K/UL (150-450) Mean Platelet Volume 6.6 FL (6.5-10.1) Neutrophils (%) (Auto) 53.4 % (45.0-75.0) Lymphocytes (%) (Auto) 34.2 % (20.0-45.0) Monocytes (%) (Auto) 7.4 % (1.0-10.0) Eosinophils (%) (Auto) 3.2 % (0.0-3.0) H Basophils (%) (Auto) 1.8 % (0.0-2.0) Sodium Level 131 mEQ/L (135-145) L Potassium Level 4.9 mEQ/L (3.4-4.9) Chloride Level 92 mEQ/L (98-107) L Carbon Dioxide Level 24 mEQ/L (20-30) Anion Gap 15 (5-15) Blood Urea Nitrogen 23 mg/dL (7-23) Creatinine 1.1 mg/dL (0.5-0.9) H Estimat Glomerular Filtration Rate mL/min (>60) Glucose Level 462 mg/dL (74-106) #H Calcium Level 9.2 mg/dL (8.6-10.2) Intake and Output 10/13/16 10/14/16 19:00 07:00 # Voids 2 4 # Bowel Movements 1 2 Objective General: obese; alert, cooperative, no distress, appears stated age Head: normocephalic, without obvious abnormality, atraumatic Eyes: conjunctivae/corneas clear. PERRL, EOM's intact Throat: lips, mucosa, and tongue normal. MMM Neck: supple, symmetrical, trachea midline, and no JVD Lungs: clear to auscultation bilaterally Heart: regular rate and rhythm, S1, S2 normal, no murmur, click, rub or gallop Abdomen: soft, non-tender, non-distended, bowel sounds normal; no masses or organomegaly Extremities: extremities normal, atraumatic, no cyanosis or edema Pulses: 2+ and symmetric Skin: skin color, texture, turgor normal; no rashes or lesions Neurologic: grossly normal, no focal deficits Assessment/Plan Problem List: (1) PUD (peptic ulcer disease) (2) GERD (gastroesophageal reflux disease) Assessment & Plan: Cont protonix. (3) DDD (degenerative disc disease), lumbar (4) Radiculopathy of lumbar region (5) Accelerated hypertension Assessment & Plan: Cont hydralazine, cardizem and norvasc per cardiology. (6) Diabetes mellitus Assessment & Plan: Uncontrolled. Continue novolog sliding scale and januvia. Increase levemir - see endo consult. (7) Major depression Assessment & Plan: See psych consult; start cymbalta 30 mg q day (8) Headache Assessment & Plan: CT brain 10/07/16=no acute dis. Assessment/Plan Discharge planning: home health MIGNON FERRELL October 14, 2016 10:18
[2016-10-14] MEDS: Miralax 17gm pkt ORAL PRN (11:00)
[2016-10-14] MEDS: DULoxetine 30mg cap ORAL SCH (11:00)
[2016-10-14] MEDS: Aspirin EC 81mg tab ORAL SCH (11:01)
[2016-10-14] MEDS: Norco 10mg/325mg tab ORAL PRN ×2 (11:05→14:43)
[2016-10-14] MEDS: Heparin 5000 units/ml inj SUBQ SCH (11:17)
[2016-10-14] MEDS: Levemir Flexpen SUBQ SCH (11:19)
[2016-10-14 11:48] VITALS: BP 128/59
[2016-10-14 15:55] VITALS: BP 150/72
[2016-10-14] MEDS ORDERED: Atorvastatin 20mg tab ORAL SCH (21:00)
--- NOTE | 2016-10-14 22:53 | Pulmonology Progress Note ---
Assessment/Plan Problems: (1) ACS (2) Accelerated hypertension (3) CHF (congestive heart failure) (4) Diabetes mellitus Assessment/Plan improving diuresing well echo checked, EF of 60p% cardio f/u sliding scale reviewed diabetic diet dc planning in progress Subjective ROS Limited/Unobtainable: No Constitutional: Reports: no symptoms HEENT: Repors: no symptoms Respiratory: Reports: no symptoms Allergies: Coded Allergies: CODEINE (Verified Allergy, Mild, Itching, 08/26/13) SULFA (SULFONAMIDE ANTIBIOTICS) (Verified Adverse Reaction, Mild, 08/26/13) VOMIT Objective Last 24 Hour Vital Signs Date Time Temp Pulse Resp B/P Pulse Ox O2 Delivery O2 Flow Rate FiO2 10/14/16 15:55 97.9 72 20 150/72 98 Room Air 10/14/16 11:48 98.1 69 21 128/59 98 Room Air 10/14/16 11:13 76 10/14/16 11:03 128/59 10/14/16 08:00 96.9 72 17 135/64 99 Room Air 10/14/16 07:38 70 18 Room Air 10/14/16 04:00 97.2 82 18 131/66 73 Room Air 10/14/16 00:00 97.0 70 18 135/63 95 Room Air Intake and Output 10/13/16 10/14/16 19:00 07:00 # Voids 2 4 # Bowel Movements 1 2 Objective General Appearance: WD/WN HEENT: normocephalic, atraumatic Respiratory/Chest: chest wall non-tender, lungs clear Cardiovascular: normal peripheral pulses, normal rate Abdomen: normal bowel sounds, soft, non tender Extremities: no cyanosis 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 Lymphatic: no neck adenopathy Laboratory Tests 10/14/16 09:10: White Blood Count 4.3L, Red Blood Count 4.02L, Hemoglobin 11.6L, Hematocrit 37.1 , Mean Corpuscular Volume 92, Mean Corpuscular Hemoglobin 28.8, Mean Corpuscular Hemoglobin Concent 31.2L, Red Cell Distribution Width 13.0, Platelet Count 251, Mean Platelet Volume 6.6, Neutrophils (%) (Auto) 53.4, Lymphocytes (%) (Auto) 34.2, Monocytes (%) (Auto) 7.4, Eosinophils (%) (Auto) 3.2H, Basophils (%) (Auto) 1.8, Sodium Level 131L, Potassium Level 4.9, Chloride Level 92L, Carbon Dioxide Level 24, Anion Gap 15, Blood Urea Nitrogen 23, Creatinine 1.1H, Estimat Glomerular Filtration Rate , Glucose Level 462#H, Calcium Level 9.2 KEYSHA MCKINNEY October 14, 2016 22:53
--- NOTE | 2016-10-15 15:07 | Discharge Summary ---
Discharge Summary Hospital Course Date of Admission October 07, 2016 at 16:56 Date of Discharge October 14, 2016 at 16:22 Admitting Diagnosis CHEST PAIN ,CHF HPI Joanna Cedillo is a 76 year old female who was admitted on October 07, 2016 at 16: 56 for Chest Pain, Congestive Heart Failure Hospital Course dc summary #[id number] Discharge Medications New Medications: Insulin Detemir (Levemir Flexpen) 100 Unit/1 Ml Insuln.pen 25 UNITS SUBQ BID for 30 Days, EA Continued Medications: Amlodipine Besylate (Norvasc) 10 Mg Tab 10 MG ORAL DAILY, TAB Aspirin* (Aspir 81*) 81 Mg Tablet.dr 81 MG ORAL DAILY, TAB Docusate Sodium (Docusate Sodium) 100 Mg Tablet 100 MG ORAL BID, TAB 0 Refills Ferrous Sulfate (Ferosul) 325 Mg Tablet 325 MG PO BID, TAB Hydrochlorothiazide* (Hydrochlorothiazide*) 25 Mg Tablet 25 MG ORAL DAILY, TAB Hydrocodone Bit/Acetaminophen (Vicodin 5-300 Mg Tablet) 1 Each Tablet 1 TAB ORAL Q4H PRN for For Pain, #30 TAB 0 Refills Insuln Asp Prt/Insulin Aspart (Novolog Mix 70-30 Flexpen Syrn) 100 Unit/1 Ml Insuln.pen 40 UNIT SQ BEFORE BREAKFAST, EA Lansoprazole* (Prevacid*) 30 Mg Tab.rap.dr 30 MG ORAL DAILY, TAB Metformin Hcl* (Metformin Hcl*) 1,000 Mg Tablet 1000 MG ORAL TID, TAB Simvastatin (Zocor) 20 Mg Tablet 20 MG ORAL BEDTIME, TAB Sitagliptin (Januvia) 100 Mg Tab 100 MG ORAL BEFORE BREAKFAST, TAB Unable to Obtain Medications (Unable To Obtain Meds) 1 Ea Ea Valsartan/Hydrochlorothiazide 320-25MG (Diovan Hct 320-25 Mg Tablet) 1 Each Tablet 1 TAB ORAL DAILY, TAB Zolpidem Tartrate* (Ambien*) 5 Mg Tablet 5 MG ORAL BEDTIME PRN for Insomnia, TAB Discontinued Medications: Insuln Asp Prt/Insulin Aspart (Novolog Mix 70-30 Flexpen Syrn) 100 Unit/1 Ml Insuln.pen 30 UNIT SQ BEFORE DINNER, EA Discharge Condition Upon Discharge: stable Discharge Disposition Patient was discharged to Home with Home Health(06) Discharge Diagnoses: Jordan (Ashlie)Tami NP October 15, 2016 15:07
--- NOTE | 2016-10-15 23:17 | Discharge Summary 2 SIG ---
DATE OF ADMISSION: 10/07/2016 DATE OF DISCHARGE: 10/14/2016 REASON FOR ADMISSION: The patient is a 76-year-old female, presented with accelerated blood pressure from a doctor's office. The patient reported moderate headache. The patient reported compliance with medication. The patient also has a history of diabetes and prior history of congestive heart failure. She did report some chest pressure. Workup in the emergency room revealed blood pressure 189/80, pulse oximetry was stable on the room air and afebrile. No leukocytosis. Stable hemoglobin and hematocrit. Glucose 184. LFTs stable. Troponin negative. ProBNP 47. EKG revealed normal sinus rhythm. Chest x-ray revealed no acute cardiopulmonary disease. The patient admitted for further management. ADMITTING DIAGNOSES: 1. Accelerated hypertension. 2. Chest pain, rule out acute coronary syndrome. 3. Possible congestive heart failure. 4. Diabetes mellitus. HOSPITAL COURSE: The patient admitted. Cardiology consult was requested. Aircraft Loadmaster Superintendent seen and evaluated the patient. Serial troponins were negative. EKG revealed no acute ischemic changes. Therefore, the patient was ruled out for acute myocardial infarction. Lipid panel is stable. Due to the diabetes, the patient started on low dose of statin as well as the aspirin. Aircraft Loadmaster Superintendent followed the patient. Aircraft Loadmaster Superintendent optimized antihypertensive management including calcium-channel nuvia and ARB with diuretic with goal to keep blood pressure below 130/80. Echocardiogram revealed preserved ejection fraction of 65%, mild left ventricular hypertrophy, and right ventricular systolic pressure of 60. CT of the head initially done and revealed disproportionate ventriculomegaly with questionable possibility of communicating hydrocephalus, but no change compared to previous exam. Followup chest x-ray also revealed no acute findings. Per Cardiology, chest pain is atypical likely secondary to GERD. GI prophylaxis provided. The patient was initially on Lasix due to some possibility of congestive heart failure. Lasix was discontinued due to worsening creatinine. Renal parameters improving. Creatinine down to normal. Supplemental oxygen and pulmonary toilet provided as needed. Pulse oximetry was stable on room air. Blood sugar was managed on Januvia, sliding scale of insulin. Blood sugar was still in 300 range. Hemoglobin A1c not control at 8.7. Levemir was increased to twice a day. Bowel regimen instituted. Added Dulcolax x1, the patient able to have a bowel movement. Pain management provided. Magnesium was stable after replacement. DISCHARGE DIAGNOSES: 1. Atypical chest pain, likely related to gastroesophageal reflux disease. 2. Gastroesophageal reflux disease. 3. Hypertensive urgency secondary to accelerated hypertension, resolved. 4. Possible diastolic congestive heart failure. 5. Diabetes mellitus, out of control. Hemoglobin A1c is 8.7. 6. Peptic ulcer disease. 7. Radiculopathy, lumbar region. 8. Normal pressure hydrocephalus. 9. Hypomagnesemia, resolved. 10. Constipation. 11. Acute kidney injury, secondary to diuretic use, resolved. Avoid nephrotoxic as possible. DISCHARGE MEDICATIONS: See medication reconciliation. DISCHARGE INSTRUCTIONS: The patient discharged home. Follow up with primary medical doctor. Emre Trejo M.D. I have been assigned to dictate discharge summary on this account and I was not involved in the patient's management. Tami Adrianinter[facility] center[facility] DR: BARBIE JOB#: [id number] CC:
== END 2016-10-14 16:22 | disposition home health service (06) | DRG 305 ==
LOC: EDBD 15:18 → EMR 16:48 → 2E 16:56 → EDBEDREQ 17:05 → 4E 10-09 20:02
DX: I16.0 Hypertensive urgency (principal); N17.9 Acute kidney failure, unspecified; E11.65 Type 2 diabetes mellitus with hyperglycemia; G93.89 Other specified disorders of brain; E83.42 Hypomagnesemia; I50.9 Heart failure, unspecified; E66.01 Morbid (severe) obesity due to excess calories; E11.8 Type 2 diabetes mellitus with unspecified complications; K21.9 Gastro-esophageal reflux disease without esophagitis; F32.9 Major depressive disorder, single episode, unspecified; Z88.6 Allergy status to analgesic agent; Z88.2 Allergy status to sulfonamides; M51.16 Intervertebral disc disorders with radiculopathy, lumbar region; R07.9 Chest pain, unspecified; K27.9 Peptic ulcer, site unspecified, unspecified as acute or chronic, without hemorrhage or perforation
CPT/HCPCS: 36415; 70450; 71010; 80048; 80053; 80061; 82550; 82553; 82962; 83036; 83735; 83880; 84100; 84443; 84484; 85025; 85610; 85730; 86140; 93005; 93306; 93970; 94664; J1815; S5561

== ENCOUNTER 2017-01-01 13:48 | Inpatient (IN) | payer MEDICARE, OTHER ==
[~2017-01-01] VITALS: Ht 172.7 cm; Wt 99.8 kg
[~2017-01-01 13:48] MED LIST changes: +LEVEMIR FL100 UNIT/1 SUBQ
[2017-01-01 14:30] VITALS: BP 146/51
--- NOTE | 2017-01-01 15:06 | Emergency Room Report ---
History of Present Illness General Chief Complaint: Hypertension Source: Patient, Medical Record Present Illness HPI 76-year-old female presents ED for evaluation. Patient referred from PMD office for elevated blood pressure and blurry vision x1 day. Patient has history of hypertension.. Denies any nausea vomiting. Denies any neck stiffness fevers or chills. States she is compliant with her medications. Denies chest pain shortness of breath. No aggravating or leading factors. Denies any other associated symptoms Allergies: Coded Allergies: CODEINE (Verified Allergy, Mild, Itching, 08/26/13) SULFA (SULFONAMIDE ANTIBIOTICS) (Verified Adverse Reaction, Mild, 08/26/13) VOMIT Patient History Past Medical History: DM, HTN, GERD Past Surgical History: none Pertinent Family History: none Social History: Denies: alcohol use, drug use, smoking Now: No Immunizations: UTD Reviewed Nursing Documentation: PMH: Agreed, PSxH: Agreed Nursing Documentation-PMH Past Medical History: No History, Except For Hx Cardiac Problems: Yes Hx Hypertension: Yes Hx Diabetes: Yes Hx Cancer: No Hx Gastrointestinal Problems: Yes - GERD, hernia Hx Neurological Problems: Yes - Frequent Falls at Home, degenaritve disc disease Hx Memory Loss: Yes Hx Dizziness: Yes Hx Headaches: Yes Hx Weakness: Yes Review of Systems All Other Systems: negative except mentioned in HPI Physical Exam Vital Signs Date Time Temp Pulse Resp B/P Pulse Ox O2 Delivery O2 Flow Rate FiO2 01/01/17 14:15 98.6 82 16 158/72 99 Room Air Sp02 EP Interpretation: reviewed, normal General Appearance: no apparent distress, alert, GCS 15, non-toxic Head: normocephalic, atraumatic Eyes: bilateral eye PERRL, bilateral eye normal inspection ENT: hearing grossly normal, normal pharynx, no angioedema, normal voice Neck: full range of motion, supple/symm/no masses Respiratory: chest non-tender, lungs clear, normal breath sounds, speaking full sentences Cardiovascular #1: regular rate, rhythm, no edema Cardiovascular #2: 2+ carotid (R), 2+ carotid (L), 2+ radial (R), 2+ radial (L) , 2+ dorsalis pedis (R), 2+ dorsalis pedis (L) Gastrointestinal: normal bowel sounds, non tender, soft, non-distended, no guarding, no rebound Rectal: deferred Genitourinary: normal inspection, no CVA tenderness Musculoskeletal: back normal, gait/station normal, normal range of motion, non- tender Neurologic: alert, oriented x3, responsive, motor strength/tone normal, sensory intact, speech normal Psychiatric: judgement/insight normal, memory normal, mood/affect normal, no suicidal/homicidal ideation Reflexes: 3+ bicep (R), 3+ bicep (L), 3+ tricep (R), 3+ tricep (L), 3+ knee (R) , 3+ knee (L) Skin: normal color, no rash, warm/dry, well hydrated Lymphatic: no adenopathy Medical Decision Making Diagnostic Impression: Primary Impression: Hypertensive urgency Additional Impression: ACS ER Course Hospital Course 76-year-old female presents ED complaining of chest pain, blurry vision, elevated BP Differential diagnoses include: MD/unstable angina, CVA/TIA, hypertensive urgency Clinical course Patient placed on stretcher. on cardiac surgeon. After initial history and physical I ordered labs, EKG, chest x-ray, CT Head, Nitro labs reviewed- no leukocytosis, hemoglobin/hematocrit stable, electrolytes okay , troponins negative. EKG - NSR, no acute changes interpreted by me Chest x-ray- unremarkable CT head negative Case discussed with Dr. Hutton/Neil and he agreed to accept the patient to his service for further care and support I. I feel this is a highly complex case requiring extensive working including EKG/Rhythm strip, Xray/CT/US, Blood/urine lab work, repeat exams while in ED, and administration of strong opiates/narcotics for pain control, admission to hospital or close patient follow up. Diagnosis - hypertensive urgency, ACS admitted to telemetry in serious condition Labs Test 01/01/17 15:00 White Blood Count 5.4 K/UL (4.8-10.8) Red Blood Count 4.19 M/UL (4.20-5.40) Hemoglobin 12.3 G/DL (12.0-16.0) Hematocrit 39.0 % (37.0-47.0) Mean Corpuscular Volume 93 FL (80-99) Mean Corpuscular Hemoglobin 29.3 PG (27.0-31.0) Mean Corpuscular Hemoglobin Concent 31.5 G/DL (32.0-36.0) Red Cell Distribution Width 13.7 % (11.6-14.8) Platelet Count 283 K/UL (150-450) Mean Platelet Volume 6.3 FL (6.5-10.1) Neutrophils (%) (Auto) 51.2 % (45.0-75.0) Lymphocytes (%) (Auto) 31.9 % (20.0-45.0) Monocytes (%) (Auto) 9.2 % (1.0-10.0) Eosinophils (%) (Auto) 6.1 % (0.0-3.0) Basophils (%) (Auto) 1.6 % (0.0-2.0) Sodium Level 140 mEQ/L (135-145) Potassium Level 4.8 mEQ/L (3.4-4.9) Chloride Level 102 mEQ/L (98-107) Carbon Dioxide Level 26 mEQ/L (20-30) Anion Gap 12 (5-15) Blood Urea Nitrogen 15 mg/dL (7-23) Creatinine 1.1 mg/dL (0.5-0.9) Estimat Glomerular Filtration Rate mL/min (>60) Glucose Level 214 mg/dL (74-106) Calcium Level 9.3 mg/dL (8.6-10.2) Total Bilirubin 0.3 mg/dL (0.0-1.2) Aspartate Amino Transf (AST/SGOT) 23 U/L (5-40) Alanine Aminotransferase (ALT/SGPT) 19 U/L (3-33) Alkaline Phosphatase 81 U/L (35-104) Total Creatine Kinase 192 U/L (26-140) Creatine Kinase MB 2.6 ng/mL (< 3.8) Creatine Kinase MB Relative Index 1.3 Troponin I < 0.30 ng/mL (<=0.30) Pro-B-Type Natriuretic Peptide 29 pg/mL (0-125) Total Protein 7.1 g/dL (6.6-8.7) Albumin 3.7 g/dL (3.5-5.2) Globulin 3.4 g/dL Albumin/Globulin Ratio 1.0 (1.0-2.7) EKG Diagnostic Results Rate: normal Rhythm: NSR ST Segments: no acute changes ASA given to the pt in ED: No Rhythm Strip Diag. Results EP Interpretation: yes Rhythm: NSR, no PVC's, no ectopy Chest X-Ray Diagnostic Results Chest X-Ray Diagnostic Results : Chest X-Ray Ordered: Yes # of Views/Limited/Complete: 1 View Indication: Other - dizziness EP Interpretation: Yes Interpretation: no consolidation, no effusion, no pneumothorax, no acute cardiopulmonary disease Impression: No acute disease Interpreting ER Provider: Electronically signed by Raf Matthews MD CT/MRI/US Diagnostic Results CT/MRI/US Diagnostic Results : Imaging Test Ordered: CT head Impression no acute process Last Vital Signs Date Time Temp Pulse Resp B/P Pulse Ox O2 Delivery O2 Flow Rate FiO2 01/01/17 14:30 98.7 77 18 146/51 98 Room Air Status: improved Disposition: ADMITTED INPATIENT Condition: Serious Referrals: Emre Trejo MD (PCP) RAF MATTHEWS M.D. Jan 01, 2017 15:06
[2017-01-01] MEDS ORDERED: Diltiazem 25mg/5ml IV PRN (15:15)
[2017-01-01] MEDS ORDERED: DuoNeb 0.5-3(2.5)mg/3ml neb HHN PRN (15:15)
[2017-01-01] MEDS ORDERED: Nitroglycerin Subl 0.4mg tab (Bottle Of 25) SL PRN ×2 (15:15→15:45)
[2017-01-01] MEDS ORDERED: Miralax 17gm pkt ORAL PRN (15:15)
[2017-01-01] MEDS ORDERED: Enalaprilat 2.5mg/2ml Inj IV PRN (15:15)
[2017-01-01 15:16] LABS: BASOPHILS % (AUTO) 1.6 % (0.0-2.0); EOSINOPHILS % (AUTO) 6.1 % (0.0-3.0); LYMPHOCYTES % (AUTO) 31.9 % (20.0-45.0); MEAN CORPUSCULAR HEMOGLOBIN 29.3 PG (27.0-31.0); MEAN CORPUSCULAR HGB CONC 31.5 G/DL (32.0-36.0); MEAN CORPUSCULAR VOLUME 93 FL (80-99); MEAN PLATELET VOLUME 6.3 FL (6.5-10.1); MONOCYTES % (AUTO) 9.2 % (1.0-10.0); NEUTROPHILS % (AUTO) 51.2 % (45.0-75.0); PLATELET COUNT 283 K/UL (150-450); RED BLOOD COUNT 4.19 M/UL (4.20-5.40); RED CELL DISTRIBUTION WIDTH 13.7 % (11.6-14.8); WHITE BLOOD COUNT 5.4 K/UL (4.8-10.8)
[2017-01-01 15:31] LABS: TROPONIN I < 0.30 ng/mL (<=0.30)
[2017-01-01 15:34] LABS: ALANINE AMINOTRANSFERASE 19 U/L (3-33); ANION GAP 12 (5-15); ASPARTATE AMINO TRANSFERASE 23 U/L (5-40); CALCIUM 9.3 mg/dL (8.6-10.2); CARBON DIOXIDE 26 mEQ/L (20-30); CHLORIDE 102 mEQ/L (98-107); CREATININE 1.1 mg/dL (0.5-0.9); HEMOLYSIS 70; POTASSIUM 4.8 mEQ/L (3.4-4.9); SODIUM 140 mEQ/L (135-145); TOTAL PROTEIN 7.1 g/dL (6.6-8.7)
--- NOTE | 2017-01-01 15:38 | Diagnostic Imaging Report ---
Indications: Dizziness, Kyler x1 day Technique: Spiral acquisitions obtained through the brain. Angled axial and coronal 5 x 5 mm slices were reconstructed. Total dose length product 1376 mGycm. CTDI vol(s) 70 mGy. Dose reduction achieved using automated exposure control Comparison: 10/07/2016 Findings: Again demonstrated is enlargement of the ventricles and to a lesser extent the extra-axial CSF spaces. This is unchanged. There is mild periventricular deep white matter chronic ischemic change. No acute hemorrhage or edema. No mass effect or midline shift. Normal ballard-white differentiation. Visualized orbits and sinuses are unremarkable. The calvarium is intact Impression: Ventriculomegaly out of proportion to degree of cortical atrophy, unchanged from 10/07/2016. Most likely on the basis of predominantly central atrophy, but possibility of normal pressure hydrocephalus should be considered. Negative for acute intracranial bleed or mass effect The CT scanner at [facility] is accredited by the [employer] and the scans are performed using protocols designed to limit radiation exposure to as low as reasonably achievable to attain images of sufficient resolution adequate for diagnostic evaluation.
[2017-01-01 15:45] LABS: CKMB 2.6 ng/mL (< 3.8)
[2017-01-01 16:00] VITALS: BP 148/68
--- NOTE | 2017-01-01 16:57 | Consultation ---
History of Present Illness General Date patient seen: Jan 01, 2017 Chief Complaint: Hypertension Referring physician: Dr. Trejo Reason for Consultation: inpatient management Present Illness HPI 76-year-old female with hx of HTN, DM, presents ED from PMD office for elevated blood pressure and blurry vision x1 day. He had a SBP > 200. she had some chest pain as well. After initial treatment in ER, she is admitted to telemetry for further evaluation. Allergies: Coded Allergies: CODEINE (Verified Allergy, Mild, Itching, 08/26/13) SULFA (SULFONAMIDE ANTIBIOTICS) (Verified Adverse Reaction, Mild, 08/26/13) VOMIT Medication History Scheduled Amlodipine Besylate (Norvasc), 10 MG ORAL DAILY, (Reported) Aspirin* (Aspir 81*), 81 MG ORAL DAILY, (Reported) Docusate Sodium (Docusate Sodium), 100 MG ORAL BID, (Reported) Ferrous Sulfate (Ferosul), 325 MG PO BID, (Reported) Hydrochlorothiazide* (Hydrochlorothiazide*), 25 MG ORAL DAILY, (Reported) Insulin Detemir (Levemir Flexpen), 25 UNITS SUBQ BID Insuln Asp Prt/Insulin Aspart (Novolog Mix 70-30 Flexpen Syrn), 40 UNIT SQ BEFORE BREAKFAST, (Reported) Lansoprazole* (Prevacid*), 30 MG ORAL DAILY, (Reported) Metformin Hcl* (Metformin Hcl*), 1,000 MG ORAL TID, (Reported) Simvastatin (Zocor), 20 MG ORAL BEDTIME, (Reported) Sitagliptin (Januvia), 100 MG ORAL BEFORE BREAKFAST, (Reported) Valsartan/Hydrochlorothiazide 320-25MG (Diovan Hct 320-25 Mg Tablet), 1 TAB ORAL DAILY, (Reported) Scheduled PRN Hydrocodone Bit/Acetaminophen (Vicodin 5-300 Mg Tablet), 1 TAB ORAL Q4H PRN for For Pain, (Reported) Zolpidem Tartrate* (Ambien*), 5 MG ORAL BEDTIME PRN for Insomnia, (Reported) Miscellaneous Medications Unable to Obtain Medications (Unable To Obtain Meds), (Reported) Patient History Healthcare decision maker N Resuscitation status Full Code Advanced Directive on File Past Medical/Surgical History Past Medical/Surgical History: (1) Hypertension (2) Major depression (3) Diabetes mellitus Review of Systems All Other Systems: negative except mentioned in HPI Physical Exam General Appearance: WD/WN Lines, tubes and drains: peripheral, central line HEENT: normocephalic, atraumatic Neck: non-tender, normal alignment Respiratory/Chest: chest wall non-tender, lungs clear Cardiovascular/Chest: normal peripheral pulses, normal rate Abdomen: normal bowel sounds, non tender Genitourinary/Rectal: normal genital exam Extremities: normal range of motion, non-tender Skin Exam: normal pigmentation Last 24 Hour Vital Signs Date Time Temp Pulse Resp B/P Pulse Ox O2 Delivery O2 Flow Rate FiO2 01/01/17 16:08 98.7 77 18 146/51 98 Room Air 01/01/17 16:00 97.9 71 18 148/68 96 Room Air 71 01/01/17 15:13 77 18 Room Air 01/01/17 14:30 98.7 77 18 146/51 98 Room Air 01/01/17 14:15 98.6 82 16 158/72 99 Room Air Laboratory Tests Test 01/01/17 15:00 White Blood Count 5.4 K/UL (4.8-10.8) Red Blood Count 4.19 M/UL (4.20-5.40) L Hemoglobin 12.3 G/DL (12.0-16.0) Hematocrit 39.0 % (37.0-47.0) Mean Corpuscular Volume 93 FL (80-99) Mean Corpuscular Hemoglobin 29.3 PG (27.0-31.0) Mean Corpuscular Hemoglobin Concent 31.5 G/DL (32.0-36.0) L Red Cell Distribution Width 13.7 % (11.6-14.8) Platelet Count 283 K/UL (150-450) Mean Platelet Volume 6.3 FL (6.5-10.1) L Neutrophils (%) (Auto) 51.2 % (45.0-75.0) Lymphocytes (%) (Auto) 31.9 % (20.0-45.0) Monocytes (%) (Auto) 9.2 % (1.0-10.0) Eosinophils (%) (Auto) 6.1 % (0.0-3.0) H Basophils (%) (Auto) 1.6 % (0.0-2.0) Sodium Level 140 mEQ/L (135-145) Potassium Level 4.8 mEQ/L (3.4-4.9) Chloride Level 102 mEQ/L (98-107) Carbon Dioxide Level 26 mEQ/L (20-30) Anion Gap 12 (5-15) Blood Urea Nitrogen 15 mg/dL (7-23) Creatinine 1.1 mg/dL (0.5-0.9) H Estimat Glomerular Filtration Rate mL/min (>60) Glucose Level 214 mg/dL (74-106) H Calcium Level 9.3 mg/dL (8.6-10.2) Total Bilirubin 0.3 mg/dL (0.0-1.2) Aspartate Amino Transf (AST/SGOT) 23 U/L (5-40) Alanine Aminotransferase (ALT/SGPT) 19 U/L (3-33) Alkaline Phosphatase 81 U/L (35-104) Total Creatine Kinase 192 U/L (26-140) H Creatine Kinase MB 2.6 ng/mL (< 3.8) Creatine Kinase MB Relative Index 1.3 Troponin I < 0.30 ng/mL (<=0.30) Pro-B-Type Natriuretic Peptide 29 pg/mL (0-125) Total Protein 7.1 g/dL (6.6-8.7) Albumin 3.7 g/dL (3.5-5.2) Globulin 3.4 g/dL Albumin/Globulin Ratio 1.0 (1.0-2.7) Height (Feet): 5 Height (Inches): 8.00 Weight (Pounds): 220 Medications Current Medications Medications (Trade) Dose Ordered Sig/Hever Route PRN Reason Start Time Stop Time Status Last Admin Dose Admin Acetaminophen (Tylenol) 650 mg Q4H PRN ORAL FEVER 01/01/17 15:15 01/31/17 15:14 Albuterol/ Ipratropium (DuoNeb 0.5-3(2.5)mg/3ml) 3 ml Q4H PRN HHN Shortness of Breath 01/01/17 15:15 01/06/17 15:14 Amlodipine Besylate (Norvasc) 10 mg DAILY ORAL 01/02/17 09:00 02/01/17 08:59 Aspirin (Ecotrin) 81 mg DAILY ORAL 01/02/17 09:00 02/01/17 08:59 Dextrose (Dextrose 50%) STAT PRN IV Hypoglycemia 01/01/17 17:00 01/31/17 16:59 UNV Diltiazem HCl (Cardizem) 10 mg Q1H PRN IV HR > 120 01/01/17 15:15 01/31/17 15:14 Enalaprilat (Vasotec) 2.5 mg Q6H PRN IV sbp more than 160 01/01/17 15:15 01/31/17 15:14 Heparin Sodium (Porcine) (Heparin 5000 units/ml) 5,000 units EVERY 12 HOURS SUBQ 01/01/17 21:00 01/31/17 20:59 Insulin Aspart (NovoLOG) BEFORE MEALS AND HS SUBQ 01/01/17 21:00 01/31/17 20:59 UNV Lansoprazole (Prevacid) 30 mg DAILY ORAL 01/02/17 09:00 02/01/17 08:59 Nitroglycerin (Ntg) 0.4 mg Every 5 Minutes PRN SL Prn Chest Pain 01/01/17 15:15 01/31/17 15:14 Nitroglycerin (Ntg) 0.4 mg Q5M PRN SL Prn Chest Pain 01/01/17 15:45 01/31/17 15:44 Ondansetron HCl (Zofran) 4 mg Q6H PRN IVP Nausea & Vomiting 01/01/17 15:15 01/31/17 15:14 Polyethylene Glycol (Miralax) 17 gm DAILYPRN PRN ORAL Constipation 01/01/17 15:15 01/31/17 15:14 Temazepam (Restoril) 15 mg HSPRN PRN ORAL Insomnia 01/01/17 15:15 01/08/17 15:14 Assessment/Plan Problem List: (1) Hypertensive urgency ICD Codes: I16.0 - Hypertensive urgency SNOMED: 077220073 (2) ACS (3) Diabetes mellitus ICD Codes: E11.9 - Type 2 diabetes mellitus without complications SNOMED: 10803627 Assessment/Plan serial ekg, troponin echo monitor bp adjut bp meds sliding scale diabetic diet dvt prophylaxis. KEYSHA MCKINNEY Jan 01, 2017 16:57
--- NOTE | 2017-01-01 19:38 | Cardiology Progress Note ---
Assessment/Plan Assessment/Plan htn cp diabetes obesity ventriculomegaly bp is fien cxr bp both arms contienu bp meds repat ekg and trop [id number] Objective Last 24 Hour Vital Signs Date Time Temp Pulse Resp B/P Pulse Ox O2 Delivery O2 Flow Rate FiO2 01/01/17 16:30 69 01/01/17 16:08 98.7 77 18 146/51 98 Room Air 01/01/17 16:00 97.9 71 18 148/68 96 Room Air 71 01/01/17 15:13 77 18 Room Air 01/01/17 14:30 98.7 77 18 146/51 98 Room Air 01/01/17 14:15 98.6 82 16 158/72 99 Room Air Laboratory Tests Test 01/01/17 15:00 White Blood Count 5.4 K/UL (4.8-10.8) Red Blood Count 4.19 M/UL (4.20-5.40) L Hemoglobin 12.3 G/DL (12.0-16.0) Hematocrit 39.0 % (37.0-47.0) Mean Corpuscular Volume 93 FL (80-99) Mean Corpuscular Hemoglobin 29.3 PG (27.0-31.0) Mean Corpuscular Hemoglobin Concent 31.5 G/DL (32.0-36.0) L Red Cell Distribution Width 13.7 % (11.6-14.8) Platelet Count 283 K/UL (150-450) Mean Platelet Volume 6.3 FL (6.5-10.1) L Neutrophils (%) (Auto) 51.2 % (45.0-75.0) Lymphocytes (%) (Auto) 31.9 % (20.0-45.0) Monocytes (%) (Auto) 9.2 % (1.0-10.0) Eosinophils (%) (Auto) 6.1 % (0.0-3.0) H Basophils (%) (Auto) 1.6 % (0.0-2.0) Sodium Level 140 mEQ/L (135-145) Potassium Level 4.8 mEQ/L (3.4-4.9) Chloride Level 102 mEQ/L (98-107) Carbon Dioxide Level 26 mEQ/L (20-30) Anion Gap 12 (5-15) Blood Urea Nitrogen 15 mg/dL (7-23) Creatinine 1.1 mg/dL (0.5-0.9) H Estimat Glomerular Filtration Rate mL/min (>60) Glucose Level 214 mg/dL (74-106) H Calcium Level 9.3 mg/dL (8.6-10.2) Total Bilirubin 0.3 mg/dL (0.0-1.2) Aspartate Amino Transf (AST/SGOT) 23 U/L (5-40) Alanine Aminotransferase (ALT/SGPT) 19 U/L (3-33) Alkaline Phosphatase 81 U/L (35-104) Total Creatine Kinase 192 U/L (26-140) H Creatine Kinase MB 2.6 ng/mL (< 3.8) Creatine Kinase MB Relative Index 1.3 Troponin I < 0.30 ng/mL (<=0.30) Pro-B-Type Natriuretic Peptide 29 pg/mL (0-125) Total Protein 7.1 g/dL (6.6-8.7) Albumin 3.7 g/dL (3.5-5.2) Globulin 3.4 g/dL Albumin/Globulin Ratio 1.0 (1.0-2.7) BASIM CARDENAS Jan 01, 2017 19:38
[2017-01-01 20:00] VITALS: BP 173/79
[2017-01-01] MEDS: Heparin 5000 units/ml inj SUBQ SCH (20:22)
[2017-01-01] MEDS: NovoLOG Insulin Flexpen SUBQ SCH (20:23)
[2017-01-02] VITALS (7 sets, daily range): BP systolic 125–172; BP diastolic 46–75
[2017-01-02] MEDS: Norco 5mg/325mg tab ORAL PRN ×3 (05:04→20:37)
[2017-01-02] MEDS: NovoLOG Insulin Flexpen SUBQ SCH ×4 (06:51→20:40)
[2017-01-02] MEDS: Aspirin EC 81mg tab ORAL SCH (08:41)
[2017-01-02] MEDS: Heparin 5000 units/ml inj SUBQ SCH ×2 (08:47→20:39)
[2017-01-02 11:34] LABS: MEAN CORPUSCULAR HEMOGLOBIN 29.9 PG (27.0-31.0); MEAN CORPUSCULAR HGB CONC 31.7 G/DL (32.0-36.0); MEAN CORPUSCULAR VOLUME 94 FL (80-99); MEAN PLATELET VOLUME 6.4 FL (6.5-10.1); PLATELET COUNT 241 K/UL (150-450); RED BLOOD COUNT 3.53 M/UL (4.20-5.40); RED CELL DISTRIBUTION WIDTH 14.4 % (11.6-14.8); WHITE BLOOD COUNT 3.4 K/UL (4.8-10.8)
[2017-01-02 11:55] LABS: CHOLESTEROL 129 mg/dL (< 200); CHOLESTEROL/HDL RATIO 2.6 (3.3-4.4); CRP QUANT < 0.3 mg/dL (< 0.5); HEMOLYSIS 3; LDL CHOLESTEROL (CALC.) 58 mg/dL (60-99)
[2017-01-02 11:57] LABS: BASOPHILS % (MANUAL) 1 % (0-2); EOSINOPHILS % (MANUAL) 6 % (0-3); LYMPHOCYTES % (MANUAL) 44 % (20-45); NEUTROPHILS % (MANUAL) 37 % (45-75); TOTAL CELLS COUNTED 100
[2017-01-02 11:58] LABS: BAND NEUTROPHILS % (MANUAL) 0 % (0-8); PLATELET ESTIMATE ADEQUATE; PLATELET MORPHOLOGY NORMAL
[2017-01-02 11:59] LABS: TROPONIN I < 0.30 ng/mL (<=0.30)
[2017-01-02 12:02] LABS: THYROID STIMULATING HORMONE 0.659 uIU/mL (0.300-4.500)
--- NOTE | 2017-01-02 13:16 | Consultation ---
DATE OF CONSULTATION: 01/01/2017 CARDIOLOGY CONSULTATION CONSULTING PHYSICIAN: Seun Kaye M.D. REFERRING PHYSICIAN: Anna Mckeon M.D. REASON FOR CONSULTATION: Hypertension. HISTORY OF PRESENT ILLNESS: This is an elderly female, who has a history of multiple medical problems as delineated below. The patient apparently blood pressure medication last week may be two doses he thinks undergoing a lot of stress. Today, she went to Dr. Trejo's office, blood pressure was significantly elevated and was referred to the emergency room here at [facility] where she was initially thought that she has significantly elevated blood pressure. On detailed questioning, the patient does admit to having had some chest pain for the past two days constantly at present and sometimes it gets worse with exercise, but these pains are something she has had on prior occasions. There was some radiation of the pain possibly, but not all the time and there is no really other significant relieving or exacerbating factor for the patient. The [facility] data was reviewed. The patient was hospitalized at [facility] in 2014 for episodes of chest pain and uncontrolled hypertension and was subsequently discharged home. A stress test reportedly was negative at that time. Nevertheless, she has pain at this time. There is no PND. She has two pillow usage, although she feels more comfortable in terms of her breathing. She has no lightheadedness, although she is off balance at times when she stands up and ambulation. PAST MEDICAL HISTORY: Positive for history of atypical chest pain with negative stress test as mentioned in 2015, history of some loss of vision on the left side, multiple , diabetes mellitus, diabetic retinopathy, anemia, and hypertension at times uncontrolled, reported history of congestive heart failure according to herself, morbid obesity, history of appendectomy, cholecystectomy, and gastric fundoplication previously. ALLERGIES: To SULFA as well as CODEINE. SOCIAL HISTORY: No smoking or drinking at all. 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 REVIEW OF SYSTEMS: Gastrointestinal: She has had some constipation. Genitourinary: Negative for two weeks ago. Neurologic: There is some numbness and tingling sensation in the fingertips. PHYSICAL EXAMINATION: GENERAL: An obese elderly female, in no respiratory distress. She is actually sitting up, but _ listening to music. VITAL SIGNS: Her blood pressure has been followed. Her blood pressure has been between 146/51, most recently to 115/72. No significantly elevated blood pressure measurements were documented in the chart. NECK: Supple. No jugular venous distention. LUNGS: Clear to auscultation percussion. CARDIAC: S1 is normal. S2 is normal. Regular rate and rhythm. No heaves. No thrills. No gallops. No rubs are noted. ABDOMEN: Soft and nontender. Positive bowel sounds. EXTREMITIES: There is trace edema of the lower extremities. NEUROLOGICAL: She is awake, alert, and responsive, in no apparent respiratory distress. Laboratory Values: Her sodium is 140, potassium 4.8, chloride 102, bicarbonate 26, BUN 15, creatinine 1.1, and glucose of 214. Calcium is 9.3, CK 192, troponin less than 0.3, proBNP 29, and albumin of 3.7. She has had imaging performed including CT scan of her head that showed ventriculomegaly 03:15 degree of cortical atrophy and pH should be considered. EKG showed normal sinus rhythm. No ST-T wave abnormalities noted. ASSESSMENT: 1. Hypertension. 2. Diabetes mellitus. 3. Imbalance. 4. Chest pain. 5. Obesity. PLAN: was seen in cardiac consultation. The patient endorses some episodes of chest pain that is a constant present for the past two days since she has had this on prior occasions. She should have a chest x-ray, I see this pain is not something before she apparently has had this pain before. She has had negative stress test at [facility] in 2015 as much as I could tell. In fact her perfusion imaging is reportedly was performed on prior occasion that reportedly was negative. undergo an esophagogastroduodenoscopy and a chest x-ray has not been done and the review of the chest x-rays previously at [facility] has indicated that she has air-filled hiatal hernia. She should have a chest x-ray performed today. Her blood pressure will be ordered to be checked on both arms and the cardiac enzymes will be repeated and an echocardiogram will be ordered as well. This is not an acute pain probably she has had this similar pain on prior occasions. Her blood pressure is not severely elevated at this time. Seun Kaye M.D. DR: BRI JOB#: [id number] CC:
--- NOTE | 2017-01-02 17:49 | Cardiology Progress Note ---
Assessment/Plan Assessment/Plan htn cp diabetes obesity ventriculomegaly bp is fine still cxr bp both arms contienu bp meds repat ekg and trop all neg tele neg prelim echo neg ambulate Subjective Cardiovascular: Reports: chest pain - some , Denies: lightheadedness, palpitations Respiratory: Denies: shortness of breath Gastrointestinal/Abdominal: Reports: other - gerd sx , Denies: abdomen distended Genitourinary: Denies: burning Objective Last 24 Hour Vital Signs Date Time Temp Pulse Resp B/P Pulse Ox O2 Delivery O2 Flow Rate FiO2 01/02/17 16:00 61 01/02/17 15:44 98.1 68 20 131/54 97 Room Air 01/02/17 12:00 65 01/02/17 11:58 98.7 66 19 132/75 94 Room Air 01/02/17 09:22 98.7 64 20 137/67 100 Room Air 01/02/17 08:42 64 137/67 01/02/17 08:00 67 01/02/17 04:00 64 01/02/17 00:31 62 18 Room Air 21 01/02/17 00:00 61 01/02/17 00:00 97.0 64 20 131/66 98 Room Air 01/01/17 20:20 173/79 01/01/17 20:00 72 01/01/17 20:00 98.1 69 18 173/79 98 Room Air General Appearance: no apparent distress, alert Neck: supple Cardiovascular: normal rate, regular rhythm Respiratory/Chest: lungs clear, normal breath sounds Abdomen: normal bowel sounds, non tender, soft Extremities: no swelling Intake and Output 01/01/17 01/02/17 19:00 07:00 Intake Total 600 ml Balance 600 ml Intake Oral 600 ml # Voids 4 Laboratory Tests Test 01/02/17 10:15 White Blood Count 3.4 K/UL (4.8-10.8) L Red Blood Count 3.53 M/UL (4.20-5.40) L Hemoglobin 10.6 G/DL (12.0-16.0) L Hematocrit 33.3 % (37.0-47.0) L Mean Corpuscular Volume 94 FL (80-99) Mean Corpuscular Hemoglobin 29.9 PG (27.0-31.0) Mean Corpuscular Hemoglobin Concent 31.7 G/DL (32.0-36.0) L Red Cell Distribution Width 14.4 % (11.6-14.8) Platelet Count 241 K/UL (150-450) Mean Platelet Volume 6.4 FL (6.5-10.1) L Neutrophils (%) (Auto) % (45.0-75.0) Lymphocytes (%) (Auto) % (20.0-45.0) Monocytes (%) (Auto) % (1.0-10.0) Eosinophils (%) (Auto) % (0.0-3.0) Basophils (%) (Auto) % (0.0-2.0) Differential Total Cells Counted 100 Neutrophils % (Manual) 37 % (45-75) L Lymphocytes % (Manual) 44 % (20-45) Monocytes % (Manual) 12 % (1-10) H Eosinophils % (Manual) 6 % (0-3) H Basophils % (Manual) 1 % (0-2) Band Neutrophils 0 % (0-8) Platelet Estimate Adequate Platelet Morphology Normal Red Blood Cell Morphology Normal Prothrombin Time 10.0 SEC (9.30-11.50) Prothromb Time International Ratio 1.0 (0.9-1.1) Activated Partial Thromboplast Time 27 SEC (23-33) Troponin I < 0.30 ng/mL (<=0.30) C-Reactive Protein, Quantitative < 0.3 mg/dL (< 0.5) Triglycerides Level 110 mg/dL (< 150) Cholesterol Level 129 mg/dL (< 200) LDL Cholesterol 58 mg/dL (60-99) L HDL Cholesterol 49 mg/dL (> 60) Cholesterol/HDL Ratio 2.6 (3.3-4.4) L Thyroid Stimulating Hormone (TSH) 0.659 uIU/mL (0.300-4.500) BASIM CARDENAS Jan 02, 2017 17:49
[2017-01-03] VITALS: BP 125/58
[2017-01-03 03:54] VITALS: BP 128/57
[2017-01-03] MEDS: NovoLOG Insulin Flexpen SUBQ SCH ×3 (06:26→17:08)
[2017-01-03] MEDS: Norco 5mg/325mg tab ORAL PRN ×2 (06:26→17:43)
[2017-01-03 08:00] VITALS: BP 159/66
[2017-01-03] MEDS: Aspirin EC 81mg tab ORAL SCH (09:15)
[2017-01-03] MEDS: Heparin 5000 units/ml inj SUBQ SCH (09:17)
[2017-01-03 12:00] VITALS: BP 135/55
[2017-01-03] MEDS ORDERED: CLONIDINE HCL0.1 M1 PO (12:06)
--- NOTE | 2017-01-03 12:25 | History & Physical ---
History and Physical History & Physicial Emre Trejo MD Jan 03, 2017 12:25
--- NOTE | 2017-01-03 12:30 | Diagnostic Imaging Report ---
Indication: Chest pain Comparison: 01/01/17 A single view chest radiograph was obtained. Findings: Hiatal hernia again noted. Cardiomegaly is present. Lungs are clear. Impression: No acute disease Hiatal hernia
--- NOTE | 2017-01-03 13:03 | Pulmonology Progress Note ---
Assessment/Plan Problems: (1) Hypertensive urgency (2) ACS (3) Diabetes mellitus Assessment/Plan imrpovng cardiac evaluation appreciated monitor BP cardiac diet dc planning check echo Subjective Interval Events: late note for 01/02 Constitutional: Reports: no symptoms HEENT: Repors: no symptoms Respiratory: Reports: no symptoms Allergies: Coded Allergies: CODEINE (Verified Allergy, Mild, Itching, 08/26/13) SULFA (SULFONAMIDE ANTIBIOTICS) (Verified Adverse Reaction, Mild, 08/26/13) VOMIT Objective Last 24 Hour Vital Signs Date Time Temp Pulse Resp B/P Pulse Ox O2 Delivery O2 Flow Rate FiO2 01/03/17 09:15 65 159/66 01/03/17 08:34 65 18 Room Air 01/03/17 08:00 97.7 68 19 159/66 94 Room Air 01/03/17 04:00 59 01/03/17 03:54 98.6 61 19 128/57 94 Room Air 01/03/17 00:00 98.1 58 18 125/58 95 Room Air 01/03/17 00:00 57 01/02/17 20:29 125/46 01/02/17 20:11 64 18 Room Air 01/02/17 20:00 58 01/02/17 19:57 98.4 64 19 172/72 93 Room Air 01/02/17 18:11 147/65 01/02/17 18:11 143/58 01/02/17 16:00 61 01/02/17 15:44 98.1 68 20 131/54 97 Room Air Intake and Output 01/02/17 01/03/17 19:00 07:00 Intake Total 690 ml Balance 690 ml Intake Oral 690 ml # Voids 7 3 General Appearance: WD/WN, no acute distress HEENT: normocephalic, anicteric Respiratory/Chest: chest wall non-tender, lungs clear Breasts: no masses Cardiovascular: normal peripheral pulses, normal rate Abdomen: normal bowel sounds, no organomegaly Genitourinary: normal external genitalia Extremities: no cyanosis Skin: no rash, no lesions Current Medications Medications (Trade) Dose Ordered Sig/Hever Route PRN Reason Start Time Stop Time Status Last Admin Dose Admin Acetaminophen (Tylenol) 650 mg Q4H PRN ORAL FEVER 01/01/17 15:15 01/31/17 15:14 01/01/17 20:20 Acetaminophen/ Hydrocodone Bitart ([place] 5/325) 1 tab Q4H PRN ORAL Moderate Pain (Pain Scale 4-6) 01/01/17 21:45 01/08/17 21:44 01/03/17 06:26 Albuterol/ Ipratropium (DuoNeb 0.5-3(2.5)mg/3ml) 3 ml Q4H PRN HHN Shortness of Breath 01/01/17 15:15 01/06/17 15:14 Amlodipine Besylate (Norvasc) 10 mg DAILY ORAL 01/02/17 09:00 02/01/17 08:59 01/03/17 09:15 Aspirin (Ecotrin) 81 mg DAILY ORAL 01/02/17 09:00 02/01/17 08:59 01/03/17 09:15 Dextrose (Dextrose 50%) STAT PRN IV Hypoglycemia 01/01/17 17:00 01/31/17 16:59 Diltiazem HCl (Cardizem) 10 mg Q1H PRN IV HR > 120 01/01/17 15:15 01/31/17 15:14 Enalaprilat (Vasotec) 2.5 mg Q6H PRN IV sbp more than 160 01/01/17 15:15 01/31/17 15:14 01/01/17 20:20 Heparin Sodium (Porcine) (Heparin 5000 units/ml) 5,000 units EVERY 12 HOURS SUBQ 01/01/17 21:00 01/31/17 20:59 01/03/17 09:17 Insulin Aspart (NovoLOG) BEFORE MEALS AND HS SUBQ 01/01/17 21:00 01/31/17 20:59 01/03/17 12:14 Lansoprazole (Prevacid) 30 mg DAILY ORAL 01/02/17 09:00 02/01/17 08:59 01/03/17 09:15 Nitroglycerin (Ntg) 0.4 mg Every 5 Minutes PRN SL Prn Chest Pain 01/01/17 15:15 01/31/17 15:14 Nitroglycerin (Ntg) 0.4 mg Q5M PRN SL Prn Chest Pain 01/01/17 15:45 01/31/17 15:44 Ondansetron HCl (Zofran) 4 mg Q6H PRN IVP Nausea & Vomiting 01/01/17 15:15 01/31/17 15:14 Polyethylene Glycol (Miralax) 17 gm DAILYPRN PRN ORAL Constipation 01/01/17 15:15 01/31/17 15:14 01/03/17 06:30 Temazepam (Restoril) 15 mg HSPRN PRN ORAL Insomnia 01/01/17 15:15 01/08/17 15:14 KEYSHA MCKINNEY Jan 03, 2017 13:03
--- NOTE | 2017-01-03 13:05 | Pulmonology Progress Note ---
Assessment/Plan Problems: (1) Hypertensive urgency (2) ACS (3) Diabetes mellitus Assessment/Plan bp much betterimrpovng cardiac evaluation appreciated monitor BP cardiac diet dc with Dr. Trejo Subjective Interval Events: no new complains Allergies: Coded Allergies: CODEINE (Verified Allergy, Mild, Itching, 08/26/13) SULFA (SULFONAMIDE ANTIBIOTICS) (Verified Adverse Reaction, Mild, 08/26/13) VOMIT Objective Last 24 Hour Vital Signs Date Time Temp Pulse Resp B/P Pulse Ox O2 Delivery O2 Flow Rate FiO2 01/03/17 09:15 65 159/66 01/03/17 08:34 65 18 Room Air 01/03/17 08:00 97.7 68 19 159/66 94 Room Air 01/03/17 04:00 59 01/03/17 03:54 98.6 61 19 128/57 94 Room Air 01/03/17 00:00 98.1 58 18 125/58 95 Room Air 01/03/17 00:00 57 01/02/17 20:29 125/46 01/02/17 20:11 64 18 Room Air 01/02/17 20:00 58 01/02/17 19:57 98.4 64 19 172/72 93 Room Air 01/02/17 18:11 147/65 01/02/17 18:11 143/58 01/02/17 16:00 61 01/02/17 15:44 98.1 68 20 131/54 97 Room Air Intake and Output 01/02/17 01/03/17 19:00 07:00 Intake Total 690 ml Balance 690 ml Intake Oral 690 ml # Voids 7 3 General Appearance: WD/WN HEENT: normocephalic, atraumatic Respiratory/Chest: chest wall non-tender, lungs clear Breasts: no masses Cardiovascular: normal peripheral pulses, normal rate Abdomen: normal bowel sounds, soft, non tender, no organomegaly Neurologic/Psychiatric: 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, no motor/sensory deficits Lymphatic: no neck adenopathy Current Medications Medications (Trade) Dose Ordered Sig/Hever Route PRN Reason Start Time Stop Time Status Last Admin Dose Admin Acetaminophen (Tylenol) 650 mg Q4H PRN ORAL FEVER 01/01/17 15:15 01/31/17 15:14 01/01/17 20:20 Acetaminophen/ Hydrocodone Bitart ([place] 5/325) 1 tab Q4H PRN ORAL Moderate Pain (Pain Scale 4-6) 01/01/17 21:45 01/08/17 21:44 01/03/17 06:26 Albuterol/ Ipratropium (DuoNeb 0.5-3(2.5)mg/3ml) 3 ml Q4H PRN HHN Shortness of Breath 01/01/17 15:15 01/06/17 15:14 Amlodipine Besylate (Norvasc) 10 mg DAILY ORAL 01/02/17 09:00 02/01/17 08:59 01/03/17 09:15 Aspirin (Ecotrin) 81 mg DAILY ORAL 01/02/17 09:00 02/01/17 08:59 01/03/17 09:15 Dextrose (Dextrose 50%) STAT PRN IV Hypoglycemia 01/01/17 17:00 01/31/17 16:59 Diltiazem HCl (Cardizem) 10 mg Q1H PRN IV HR > 120 01/01/17 15:15 01/31/17 15:14 Enalaprilat (Vasotec) 2.5 mg Q6H PRN IV sbp more than 160 01/01/17 15:15 01/31/17 15:14 01/01/17 20:20 Heparin Sodium (Porcine) (Heparin 5000 units/ml) 5,000 units EVERY 12 HOURS SUBQ 01/01/17 21:00 01/31/17 20:59 01/03/17 09:17 Insulin Aspart (NovoLOG) BEFORE MEALS AND HS SUBQ 01/01/17 21:00 01/31/17 20:59 01/03/17 12:14 Lansoprazole (Prevacid) 30 mg DAILY ORAL 01/02/17 09:00 02/01/17 08:59 01/03/17 09:15 Nitroglycerin (Ntg) 0.4 mg Every 5 Minutes PRN SL Prn Chest Pain 01/01/17 15:15 01/31/17 15:14 Nitroglycerin (Ntg) 0.4 mg Q5M PRN SL Prn Chest Pain 01/01/17 15:45 01/31/17 15:44 Ondansetron HCl (Zofran) 4 mg Q6H PRN IVP Nausea & Vomiting 8/9/17 15:15 01/31/17 15:14 Polyethylene Glycol (Miralax) 17 gm DAILYPRN PRN ORAL Constipation 01/01/17 15:15 01/31/17 15:14 01/03/17 06:30 Temazepam (Restoril) 15 mg HSPRN PRN ORAL Insomnia 01/01/17 15:15 01/08/17 15:14 KEYSHA MCKINNEY Jan 03, 2017 13:05
[2017-01-03 16:00] VITALS: BP 159/61
--- NOTE | 2017-01-03 16:32 | Cardiology Progress Note ---
Assessment/Plan Assessment/Plan htn cp diabetes obesity ventriculomegaly bp is almsot fine cxr neg bp both arms equal contienu bp meds norvasc added diovan 160 mg cdialy repat ekg and trop all neg tele neg planned for dc noted i wrote out perscrioption for diovan and norvasc Subjective Cardiovascular: Denies: chest pain, lightheadedness Respiratory: Denies: shortness of breath Gastrointestinal/Abdominal: Reports: constipated, Denies: abdominal pain Genitourinary: Denies: burning Subjective soem head ache Objective Last 24 Hour Vital Signs Date Time Temp Pulse Resp B/P Pulse Ox O2 Delivery O2 Flow Rate FiO2 01/03/17 16:00 98.1 64 19 159/61 94 Room Air 01/03/17 12:00 67 01/03/17 12:00 97.7 61 19 135/55 96 Room Air 01/03/17 09:15 65 159/66 01/03/17 08:34 65 18 Room Air 01/03/17 08:00 97.7 68 19 159/66 94 Room Air 01/03/17 07:29 63 01/03/17 04:00 59 01/03/17 03:54 98.6 61 19 128/57 94 Room Air 01/03/17 00:00 98.1 58 18 125/58 95 Room Air 01/03/17 00:00 57 01/02/17 20:29 125/46 01/02/17 20:11 64 18 Room Air 01/02/17 20:00 58 01/02/17 19:57 98.4 64 19 172/72 93 Room Air 01/02/17 18:11 147/65 01/02/17 18:11 143/58 General Appearance: alert Neck: supple Cardiovascular: normal rate, regular rhythm Respiratory/Chest: lungs clear, normal breath sounds Abdomen: normal bowel sounds, non tender, soft Extremities: no swelling Intake and Output 01/02/17 01/03/17 19:00 07:00 Intake Total 690 ml Balance 690 ml Intake Oral 690 ml # Voids 7 3 BASIM CARDENAS Jan 03, 2017 16:31
--- NOTE | 2017-01-03 19:00 | History and Physical Report ---
DATE OF ADMISSION: 01/01/2017 CHIEF COMPLAINT: Uncontrolled hypertension. HISTORY OF PRESENT ILLNESS: This is a 76-year-old very delightful female with a past medical history significant for morbid obesity, history of hypertension, history of diabetes type 2 with diabetic retinopathy, anemia, congestive heart failure, appendectomy, cholecystectomy, and gastric fundoplication who presented to the hospital after it was noted in my office that the patient has elevated blood pressure over 200. Shortly after initial evaluation, the patient was referred to the emergency room. Upon arrival to the emergency, the patient was noted to have systolic blood pressure of 158/72 and the patient was complaining of blurry vision and no nausea or vomiting. No neck stiffness. No fever or chills. She has been compliant with her medication. No chest pain. No shortness of breath. Shortly after initial evaluation, the patient was admitted to the hospital with a hypertensive urgency and possible acute coronary syndrome. PAST MEDICAL HISTORY AND PAST SURGICAL HISTORY: As above, history of hypertension, morbid obesity, congestive heart failure, diabetes type 2, diabetic retinopathy, history of appendectomy, cholecystectomy and gastric fundoplication. MEDICATIONS: At home is significant for amlodipine, aspirin, Colace, iron sulfate, hydrochlorothiazide, Gl[place], Levemir, and insulin flex plain 25 units twice a day. The patient is on aspart and NovoLog Mix insulin 70/30 40 units before breakfast, Prevacid 30 mg, metformin 1000 mg three times a day, Zocor 20 mg at bedtime, Januvia 100 mg daily, Diovan HCT 320/25 mg once a day and Ambien 5 mg p.o. at bedtime. ALLERGIES: Codeine and sulfa medication including Bactrim. SOCIAL HISTORY: The patient denies any smoking, alcohol or drugs. Denies any suicide or homicide ideation. FAMILY HISTORY: Noncontributory. REVIEW OF SYSTEMS: Mostly as above. Some positive sign of constipation, some dizziness, and some headache. No nausea or vomiting. No double vision. PHYSICAL EXAMINATION: GENERAL: The patient awake and responsive, no acute distress. VITAL SIGNS: At this time significant for temperature 97.7 degrees, pulse of 68, respiration 19 and blood pressure 159/66. HEENT: Pupils are equal and reactive to light. Extraocular movements are intact. NECK: Supple. No JVD. LUNGS: Good air entry. No wheezing or rales. HEART: S1 and S2. Regular rhythm. Distant heart sounds. ABDOMEN: Soft, nondistended, and nontender. Morbid obese. EXTREMITIES: No cyanosis, clubbing, or edema. NEUROLOGIC: Cranial nerves II through XII are grossly intact. The patient moving all extremities. Gait is ambulatory with a front wheel walker. LABORATORY AND DIAGNOSTIC DATA: Laboratory on admission, WBC of 5.4, hemoglobin 12, hematocrit 39, and platelet is 283,000. Sodium 140, potassium 4.8, chloride 102, bicarbonate 26, BUN 15, creatinine 1.1, and glucose is 214. AST of 23, ALT of 19 and alkaline phosphatase was 81. First and second troponin less than 0.30. CRP less than 0.3. ProBNP of 29. The patient's cholesterol is 129, LDL was 58, and HDL of 49. TSH is 0.659. PT of 10, INR 1.0 and PTT of 27. CT of the head was done in the ER showed no acute intracranial bleed or mass effect. Ventriculomegaly out of proportion of the degree of the cortical atrophy. Unchanged from 10/07/2016, most likely on the basis of predominantly central atrophy, but possibility of normal pressure hydrocephalus cannot be ruled out. The patient has EKG, normal sinus rhythm, ventricular rate of 75, no ST elevation or T-wave inversion was identified. The patient had an echocardiogram done, noted to have ejection fraction of 60% to 65% with mild left ventricular hypertrophy and anterior echo free space. The patient has a trace to mild tricuspid regurgitation and normal tricuspid valve structure. ASSESSMENT: 1. Hypertensive urgency. 2. Hypertension. 3. Dyslipidemia. 4. Diabetes type 2 with diabetic neuropathy, 5. Ventriculomegaly. 6. Morbid obesity. 7. Atypical chest pain. PLAN: Admit the patient to telemetry. We will follow up laboratories. The patient has been seen by Dr. Mckeon, Pulmonary Critical Care and Dr. Seun Kaye from Cardiology. We will monitor blood pressure closely. If the patient's status improved, consider discharge home today to be follow up in my office next week. Emre Trejo M.D. DR: SAM JOB#: [id number] CC:
[2017-01-06] MEDS ORDERED: DIOVAN160 MG ORAL (09:32)
--- NOTE | 2017-01-06 09:42 | Discharge Summary ---
Discharge Summary Hospital Course Date of Admission Jan 01, 2017 at 14:55 Date of Discharge Jan 03, 2017 at 19:30 Admitting Diagnosis hypertensive urgency HPI Joanna Cedillo is a 76 year old female who was admitted on Jan 01, 2017 at 14:55 for Hypertensive Urgency Hospital Course dc summary #[id number] Discharge Medications New Medications: Clonidine HCl (Clonidine HCl ER) 0.1 Mg Tab.er.12h 0.1 MG PO Q6HR PRN for 30 Days, TAB Valsartan (Diovan) 160 Mg Tablet 160 MG ORAL DAILY, #30 TAB Continued Medications: Amlodipine Besylate (Norvasc) 10 Mg Tab 10 MG ORAL DAILY, TAB Aspirin* (Aspir 81*) 81 Mg Tablet.dr 81 MG ORAL DAILY, TAB Docusate Sodium (Docusate Sodium) 100 Mg Tablet 100 MG ORAL BID, TAB 0 Refills Ferrous Sulfate (Ferosul) 325 Mg Tablet 325 MG PO BID, TAB Hydrochlorothiazide* (Hydrochlorothiazide*) 25 Mg Tablet 25 MG ORAL DAILY, TAB Hydrocodone Bit/Acetaminophen (Vicodin 5-300 Mg Tablet) 1 Each Tablet 1 TAB ORAL Q4H PRN for For Pain, #30 TAB 0 Refills Insulin Detemir (Levemir Flexpen) 100 Unit/1 Ml Insuln.pen 25 UNITS SUBQ BID for 30 Days, EA Insuln Asp Prt/Insulin Aspart (Novolog Mix 70-30 Flexpen Syrn) 100 Unit/1 Ml Insuln.pen 40 UNIT SQ BEFORE BREAKFAST, EA Lansoprazole* (Prevacid*) 30 Mg Tab.rap.dr 30 MG ORAL DAILY, TAB Metformin Hcl* (Metformin Hcl*) 1,000 Mg Tablet 1000 MG ORAL TID, TAB Simvastatin (Zocor) 20 Mg Tablet 20 MG ORAL BEDTIME, TAB Sitagliptin (Januvia) 100 Mg Tab 100 MG ORAL BEFORE BREAKFAST, TAB Unable to Obtain Medications (Unable To Obtain Meds) 1 Ea Ea Valsartan/Hydrochlorothiazide 320-25MG (Diovan Hct 320-25 Mg Tablet) 1 Each Tablet 1 TAB ORAL DAILY, TAB Zolpidem Tartrate* (Ambien*) 5 Mg Tablet 5 MG ORAL BEDTIME PRN for Insomnia, TAB Discharge Condition Upon Discharge: stable Discharge Disposition Patient was discharged to Home with Home Health(06) Discharge Diagnoses: Discharge Instructions Discharge Instructions Special Instructions I have been assigned to complete a D/C Summary on this account. I was not involved in the patient management Tami Ortega NP ([place]) Jan 06, 2017 09:42
--- NOTE | 2017-01-07 00:15 | Discharge Summary 2 SIG ---
DATE OF ADMISSION: 01/01/2017 DATE OF DISCHARGE: 01/03/2017 REASON FOR ADMISSION 76-year-old female with a past medical history significant for hypertension, diabetes, morbid obesity, and congestive heart failure, presented to the hospital for evaluation. She was seen at primary doctor's office, Dr. Trejo, and was noted to have significantly elevated blood pressure over 200. The patient was sent to emergency department for evaluation. Upon arrival to the emergency room, blood pressure 0 158/72. The patient was complaining of blurry vision. No nausea. No vomiting. No neck stiffness. No fever. No chills. No shortness of breath. No chest pain. Mild chest discomfort. CT of the head revealed no acute intracranial pathology. It demonstrated ventriculomegaly out of proportion to degree of cortical atrophy, but unchanged from 10/07/2016, most likely on the basis of predominantly central atrophy. Troponin was negative. EKG revealed no acute ischemic changes. The patient was admitted to telemetry floor for further management. ADMITTING DIAGNOSES: 1. Hypertensive urgency. 2. Hypertension. 3. Chest pain, rule out acute coronary syndrome. 4. Diabetes mellitus, type 2 with diabetic neuropathy. 5. Ventriculomegaly. 6. Morbid obesity. 7. Dyslipidemia. HOSPITAL STAY: The patient was admitted to telemetry floor. Cardiology and Pulmonology consults were requested. Serial troponin were negative. EKG revealed no acute ischemic changes. Per stabber, chest pain was atypical. The patient was ruled out for acute OK. Per stabber, the patient endorsed episode of chest pain, constant and present for the past two days, which she had on prior occasions. Chest x-ray revealed no acute cardiopulmonary disease, but demonstrated hiatal hernia., cardiomegaly and clear lungs. Stress test was negative at [facility] in 2014. Echocardiogram revealed preserved ejection fraction of 60% to 65%, right ventricular systolic pressure of 31. Antihypertensive regimen was optimized by Cardiology. Diovan was added to existing calcium-channel nuvia as well as the clonidine on an as needed basis. Blood pressure normalized. Lipid panel was stable. Statin was continued. Blood sugar was managed with sliding scale of insulin. DVT prophylaxis provided. Per Cardiology, chest pain was atypical, possibly due to hiatal hernia. Blood pressure was controlled with new antihypertensive regimen. The patient was stable for discharge home. DISCHARGE DIAGNOSES: 1. Hypertensive urgency, resolved. 2. Atypical chest pain, possibly due to hiatal hernia 3. Hypertension. 4. Dyslipidemia. 5. Diabetes mellitus with diabetic neuropathy. 6. Morbid obesity. 7. Ventriculomegaly. DISCHARGE MEDICATIONS: See medication reconciliation list. A script for new antihypertensive provided. DISCHARGE INSTRUCTION: The patient was discharged home with home health services. The patient to follow up with the primary medical doctor next week. Emre Trejo M.D. I have been assigned to dictate discharge summary on this account and I was not involved in the patient's management. Tami AdrianHerkimer Memorial HospitalFelicitas N.PDaniel DR: ARJUN JOB#: [id number] CC: FARIDEH
== END 2017-01-03 19:30 | disposition home or self-care (01) | DRG 305 ==
LOC: EMR 14:30 → 2E 14:55 → EDBEDREQ 15:49
DX: I16.0 Hypertensive urgency (principal); E11.40 Type 2 diabetes mellitus with diabetic neuropathy, unspecified; G93.89 Other specified disorders of brain; E66.9 Obesity, unspecified; E78.5 Hyperlipidemia, unspecified; E66.01 Morbid (severe) obesity due to excess calories; R07.89 Other chest pain; Z88.6 Allergy status to analgesic agent; Z88.2 Allergy status to sulfonamides; I50.9 Heart failure, unspecified; E11.319 Type 2 diabetes mellitus with unspecified diabetic retinopathy without macular edema; Z79.4 Long term (current) use of insulin; K44.9 Diaphragmatic hernia without obstruction or gangrene
CPT/HCPCS: 36415; 70450; 71010; 80053; 80061; 82550; 82553; 82962; 83880; 84443; 84484; 85007; 85025; 85610; 85730; 86140; 93005; 93306; 94664; J1815

== ENCOUNTER 2017-10-24 22:39 | Inpatient (IN) | payer MEDICARE ==
[~2017-10-24] VITALS: Ht 172.7 cm; Wt 64.2 kg
[~2017-10-24 22:39] MED LIST changes: +CLONIDINE HCL0.1 M1 PO; +DIOVAN160 MG ORAL
[2017-10-24] MEDS ORDERED: LORazepam Inj 2mg/ml 1ml IV ONE (22:45)
--- NOTE | 2017-10-24 22:48 | Emergency Room Report ---
History of Present Illness General Chief Complaint: Chest Pain Source: Patient, EMS Present Illness HPI This is 76-year-old female with a history of high blood pressure and diabetes patient presents with chief complaint of chest pain. Onset was on hour ago. She had a pretty strong argument with her granddaughter. There was a lot of cursing and yelling. She developed chest pain and chest pressure. She called 911. Scribed pain is 10 out of 10 throbbing in nature. Eating to her head. No focal deficit. No pain to her neck or arm. Does have shortness of breath. No diaphoresis. No exertional component. She called 911. She seemed 324 mg of aspirin and 3 nitroglycerin spray. Pain went down to 8 out of 10. Now headache is worse. Recent stress test 3 years ago per patient. Negative.. Allergies: Coded Allergies: CODEINE (Verified Allergy, Unknown, 10/24/17) SULFA (SULFONAMIDE ANTIBIOTICS) (Verified Allergy, Unknown, 10/24/17) Patient History Past Medical History: see triage record, old chart reviewed, DM, HTN Past Surgical History: other Pertinent Family History: none Social History: Denies: smoking Now: No Immunizations: other Reviewed Nursing Documentation: PMH: Agreed; PSxH: Agreed Nursing Documentation-PMH Hx Cardiac Problems: Yes - CHF Hx Hypertension: Yes Hx Diabetes: Yes History Of Psychiatric Problem: Yes - ANXIETY Review of Systems Eye: Denies: eye pain, blurred vision ENT: Denies: ear pain, nose congestion, throat swelling Respiratory: Denies: cough, shortness of breath Cardiovascular: Reports: chest pain; Denies: palpitations Gastrointestinal: Denies: abdominal pain, diarrhea, nausea, vomiting Musculoskeletal: Denies: back pain, joint pain Skin: Denies: rash Neurological: Denies: headache, numbness Endocrine: Denies: increased thirst, increased urine Hematologic/Lymphatic: Denies: easy bruising All Other Systems: negative except mentioned in HPI Physical Exam Vital Signs Date Time Temp Pulse Resp B/P (MAP) Pulse Ox O2 Delivery O2 Flow Rate FiO2 10/24/17 22:34 98.4 107 18 157/68 96 Room Air 98.4 vitals with high blood pressure Sp02 EP Interpretation: reviewed, normal General Appearance: well appearing, no apparent distress, alert Head: normocephalic, atraumatic Eyes: bilateral eye PERRL, bilateral eye EOMI ENT: hearing grossly normal, normal pharynx Neck: full range of motion, supple, no meningismus Respiratory: chest non-tender, lungs clear, normal breath sounds Cardiovascular #1: regular rate, rhythm, no murmur, other - gas bubble sounds in upper chest. 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 Most likely stress related but she has multiple risk factor. Her diabetes is not controlled. Will admit for further workup. No evidence of ACS, PE, dissection at this moment in time. Patient is pain-free now. I discussed with case with Dr. Trejo who will admit. Lab Results Impression labs with hyperglycemia EKG Diagnostic Results Rate: normal Rhythm: NSR ST Segments: no acute changes Rhythm Strip Diag. Results Rhythm Strip Time: 22:48 EP Interpretation: yes Rate: 100 Rhythm: NSR, no PVC's, no ectopy Chest X-Ray Diagnostic Results Chest X-Ray Diagnostic Results : Chest X-Ray Ordered: Yes # of Views/Limited/Complete: 1 View Indication: Chest Pain EP Interpretation: Yes Interpretation: no consolidation, no effusion, no pneumothorax, other - hiatal hernia Impression: No acute disease Electronically Signed by: Aung Salmon MD Last Vital Signs Date Time Temp Pulse Resp B/P (MAP) Pulse Ox O2 Delivery O2 Flow Rate FiO2 10/24/17 22:34 98.4 107 18 157/68 96 Room Air 98.4 Status: improved Disposition: ADMITTED INPATIENT Condition: Serious AUNG SALMON M.D. Oct 24, 2017 22:48
[2017-10-24 22:50] VITALS: BP 114/96
[2017-10-24] MEDS ORDERED: METFORMIN HCL1000 M1 ORAL (22:50)
[2017-10-24] MEDS ORDERED: HYDROCHLOROTHIA25 MG ORAL (22:50)
[2017-10-24] MEDS ORDERED: JANUVIA25 MG ORAL (22:50)
[2017-10-24] MEDS ORDERED: HUMULIN 70100 UNIT/2 SUBQ (23:04)
[2017-10-24 23:17] LABS: BASOPHILS % (AUTO) 1.6 % (0.0-2.0); EOSINOPHILS % (AUTO) 3.5 % (0.0-3.0); HEMATOCRIT 36.1 % (37.0-47.0); LYMPHOCYTES % (AUTO) 28.6 % (20.0-45.0); MEAN CORPUSCULAR VOLUME 91 FL (80-99); MONOCYTES % (AUTO) 6.9 % (1.0-10.0); NEUTROPHILS % (AUTO) 59.4 % (45.0-75.0); PLATELET COUNT 203 K/UL (150-450); RED BLOOD COUNT 3.95 M/UL (4.20-5.40); RED CELL DISTRIBUTION WIDTH 12.9 % (11.6-14.8); WHITE BLOOD COUNT 5.5 K/UL (4.8-10.8)
[2017-10-24 23:29] LABS: ANION GAP 9 mmol/L (5-15); BLOOD UREA NITROGEN 19 mg/dL (7-18); CALCIUM 8.7 MG/DL (8.5-10.1); CARBON DIOXIDE 24 MMOL/L (21-32); CHLORIDE 104 MMOL/L (98-107); CREATININE 1.2 MG/DL (0.55-1.30); POTASSIUM 3.6 MMOL/L (3.5-5.1); SODIUM 137 MMOL/L (136-145)
[2017-10-24 23:43] LABS: ALANINE AMINOTRANSFERASE 30 U/L (12-78); ALBUMIN/GLOBULIN RATIO 0.8 (1.0-2.7); ALKALINE PHOSPHATASE 106 U/L (46-116); ASPARTATE AMINO TRANSFERASE 17 U/L (15-37); BILIRUBIN,TOTAL 0.3 MG/DL (0.2-1.0); CKMB 1.7 NG/ML (0.0-3.6); CREATINE KINASE 156 U/L (26-308)
[2017-10-25] VITALS (7 sets, daily range): BP systolic 122–159; BP diastolic 65–94
[2017-10-25] MEDS ORDERED: Insulin Human Regular 100units/ml 3ml IV ONE
--- NOTE | 2017-10-25 00:44 | Diagnostic Imaging Report ---
EXAM: XR Chest, 1 View CLINICAL HISTORY: Chest pain TECHNIQUE: Frontal view of the chest. COMPARISON: No relevant prior studies available. FINDINGS: Lungs: Nonspecific bilateral perihilar opacities may be related to pulmonary edema or an infectious or inflammatory process. Hypoventilatory lungs. Pleural space: Unremarkable. No pneumothorax. Heart: Lucency projected over the heart is likely related to a hiatal hernia. Apparent enlargement of the cardiomediastinal silhouette is likely in part due to low lung volumes. Mediastinum: See above. Bones/joints: No acute osseous abnormality. IMPRESSION: Nonspecific bilateral perihilar opacities may be related to pulmonary edema or an infectious or inflammatory process.
[2017-10-25] MEDS ORDERED: PREVACID15 MG ORAL (04:00)
[2017-10-25] MEDS ORDERED: SOMA250 MG PO (04:01)
[2017-10-25] MEDS ORDERED: NORCO 5-325 TA1 EACH ORAL (04:02)
[2017-10-25] MEDS ORDERED: Morphine Sulfate 4mg/ml Inj IVP PRN (06:30)
[2017-10-25] MEDS ORDERED: Miralax 17gm pkt ORAL PRN (06:30)
[2017-10-25] MEDS ORDERED: Acetaminophen 650 MG SUPP RECTAL PRN ×2 (06:30)
[2017-10-25] MEDS ORDERED: Nitroglycerin Subl 0.4mg tab SL PRN (06:30)
[2017-10-25] MEDS ORDERED: Milk of Magnesia 30ml Ud ORAL PRN (06:30)
[2017-10-25] MEDS: Docusate 100mg cap ORAL SCH ×2 (08:56→20:26)
[2017-10-25] MEDS: sitaGLIPtin 25mg tab ORAL SCH ×2 (08:56→18:20)
[2017-10-25] MEDS: metFORMIN 500mg tab ORAL SCH ×2 (08:56→18:20)
[2017-10-25] MEDS: Aspirin Baby 81mg ORAL SCH (08:56)
[2017-10-25] MEDS: Insulin NPH SUBQ SCH ×2 (09:13→17:13)
[2017-10-25] MEDS: NovoLOG Insulin Flexpen SUBQ SCH ×4 (09:14→20:25)
[2017-10-25] MEDS: Norco 5mg/325mg tab ORAL PRN ×2 (09:48→20:26)
--- NOTE | 2017-10-25 10:02 | Consultation ---
History of Present Illness General Date patient seen: Oct 25, 2017 Chief Complaint: Chest Pain Present Illness HPI 76-year-old female with a history of high blood pressure and diabetes presented to ER with chief complaint of chest pain for hour ago. She had a pretty strong argument with her granddaughter. There was a lot of cursing and yelling. She developed chest pain and chest pressure. She called 911. She did have shortness of breath as well . No diaphoresis. She received 324 mg of aspirin and 3 nitroglycerin spray. Pain went down to 8 out of 10. Now headache is worse. She is admitted to telemetry for ACS. Allergies: Coded Allergies: CODEINE (Verified Allergy, Unknown, 10/24/17) SULFA (SULFONAMIDE ANTIBIOTICS) (Verified Allergy, Unknown, 10/24/17) Medication History Scheduled Carisoprodol (Soma), 250 MG PO Q6H, (Reported) Hum Insulin Nph/Reg Insulin Hm (Humulin 70-30 Vial), 50 SUBQ BIDAC, (Reported) Hydrochlorothiazide* (Hydrochlorothiazide*), 25 MG ORAL DAILY, (Reported) Lansoprazole* (Prevacid*), 25 MG ORAL BID, (Reported) Metformin Hcl* (Metformin Hcl*), 1,000 MG ORAL BID, (Reported) Sitagliptin* (Januvia*), 25 MG ORAL BID, (Reported) Scheduled PRN Hydrocodone Bit/Acetaminophen 5-325* ([place] 5-325*), 1 TAB ORAL Q4H PRN for For Pain, (Reported) Patient History Healthcare decision maker Resuscitation status Full Code Advanced Directive on File Past Medical/Surgical History Past Medical/Surgical History: (1) Hypertension (2) Diabetes mellitus Review of Systems Constitutional: Reports: no symptoms Eye: Reports: no symptoms Respiratory: Reports: shortness of breath Cardiovascular: Reports: no symptoms Gastrointestinal: Reports: no symptoms Genitourinary: Reports: no symptoms Physical Exam General Appearance: WD/WN, no apparent distress Lines, tubes and drains: peripheral HEENT: normocephalic, anicteric Neck: non-tender, normal alignment Respiratory/Chest: chest wall non-tender, lungs clear Cardiovascular/Chest: normal peripheral pulses, normal rate Abdomen: normal bowel sounds Last 24 Hour Vital Signs Date Time Temp Pulse Resp B/P (MAP) Pulse Ox O2 Delivery O2 Flow Rate FiO2 10/25/17 04:00 97.5 67 20 157/75 99 Room Air 97.5 10/25/17 04:00 68 10/25/17 02:20 98.1 84 16 142/94 100 Room Air 98.1 10/25/17 02:00 98.1 84 16 142/94 100 Room Air 98.1 10/25/17 01:05 88 17 122/89 97 Room Air 10/24/17 22:50 98.2 86 15 114/96 99 Room Air 98.2 10/24/17 22:50 86 15 Room Air 10/24/17 22:34 98.4 107 18 157/68 96 Room Air 98.4 Intake and Output 10/24/17 10/25/17 19:00 07:00 Output Total 0 ml Balance 0 ml Output Urine Total 0 ml # Voids 1 Laboratory Tests Test 10/24/17 22:55 White Blood Count 5.5 K/UL (4.8-10.8) Red Blood Count 3.95 M/UL (4.20-5.40) L Hemoglobin 12.0 G/DL (12.0-16.0) Hematocrit 36.1 % (37.0-47.0) L Mean Corpuscular Volume 91 FL (80-99) Mean Corpuscular Hemoglobin 30.3 PG (27.0-31.0) Mean Corpuscular Hemoglobin Concent 33.2 G/DL (32.0-36.0) Red Cell Distribution Width 12.9 % (11.6-14.8) Platelet Count 203 K/UL (150-450) Mean Platelet Volume 6.5 FL (6.5-10.1) Neutrophils (%) (Auto) 59.4 % (45.0-75.0) Lymphocytes (%) (Auto) 28.6 % (20.0-45.0) Monocytes (%) (Auto) 6.9 % (1.0-10.0) Eosinophils (%) (Auto) 3.5 % (0.0-3.0) H Basophils (%) (Auto) 1.6 % (0.0-2.0) Sodium Level 137 MMOL/L (136-145) Potassium Level 3.6 MMOL/L (3.5-5.1) Chloride Level 104 MMOL/L (98-107) Carbon Dioxide Level 24 MMOL/L (21-32) Anion Gap 9 mmol/L (5-15) Blood Urea Nitrogen 19 mg/dL (7-18) H Creatinine 1.2 MG/DL (0.55-1.30) Estimat Glomerular Filtration Rate mL/min (>60) Glucose Level 444 MG/DL (74-106) H Calcium Level 8.7 MG/DL (8.5-10.1) Total Bilirubin 0.3 MG/DL (0.2-1.0) Aspartate Amino Transf (AST/SGOT) 17 U/L (15-37) Alanine Aminotransferase (ALT/SGPT) 30 U/L (12-78) Alkaline Phosphatase 106 U/L (46-116) Total Creatine Kinase 156 U/L (26-308) Creatine Kinase MB 1.7 NG/ML (0.0-3.6) Creatine Kinase MB Relative Index 1.0 Troponin I 0.034 ng/mL (0.000-0.056) Total Protein 6.9 G/DL (6.4-8.2) Albumin 3.0 G/DL (3.4-5.0) L Globulin 3.9 g/dL Albumin/Globulin Ratio 0.8 (1.0-2.7) L Height (Feet): 5 Height (Inches): 8.00 Weight (Pounds): 200 Medications Current Medications Medications (Trade) Dose Ordered Sig/Hever Route PRN Reason Start Time Stop Time Status Last Admin Dose Admin Acetaminophen (Tylenol) 650 mg Q4H PRN ORAL Mild Pain (Pain Scale 1-3) 10/25/17 06:30 11/24/17 06:29 Acetaminophen (Tylenol) 650 mg Q4H PRN ORAL fever 10/25/17 06:30 11/24/17 06:29 Acetaminophen (Tylenol) 650 mg Q4H PRN RECTAL Mild Pain (Pain Scale 1-3) 10/25/17 06:30 11/24/17 06:29 Acetaminophen (Tylenol) 650 mg Q4H PRN RECTAL fever 10/25/17 06:30 11/24/17 06:29 Acetaminophen/ Hydrocodone Bitart ([place] 5/325) 1 tab Q4H PRN ORAL For Pain 10/25/17 06:30 11/01/17 06:29 10/25/17 09:48 Aspirin (ASA) 81 mg DAILY ORAL 10/25/17 09:00 11/24/17 08:59 10/25/17 08:56 Bisacodyl (Dulcolax) 10 mg DAILYPRN PRN RECTAL Constipation 10/25/17 06:30 11/24/17 06:29 Carisoprodol (Soma) 350 mg TIDPRN PRN ORAL BACK PAIN 10/25/17 06:30 11/24/17 06:29 Dextrose (Dextrose 50%) 25 ml STAT PRN IV Hypoglycemia 10/25/17 06:30 11/24/17 06:29 Dextrose (Dextrose 50%) 50 ml STAT PRN IV Hypoglycemia 10/25/17 06:30 11/24/17 06:29 Diphenhydramine HCl (Benadryl) 25 mg Q6H PRN ORAL Itching/Pruritis 10/25/17 06:30 11/24/17 06:29 Docusate Sodium (Colace) 100 mg EVERY 12 HOURS ORAL 10/25/17 09:00 11/24/17 08:59 10/25/17 08:56 Heparin Sodium (Porcine) (Heparin 5000 units/ml) 5,000 units EVERY 8 HOURS SUBQ 10/25/17 14:00 11/24/17 13:59 Hydrochlorothiazide (Hydrodiuril) 25 mg DAILY ORAL 10/25/17 09:00 11/24/17 08:59 10/25/17 08:56 Insulin Aspart (NovoLOG) BEFORE MEALS AND HS SUBQ 10/25/17 07:00 11/24/17 06:59 10/25/17 09:14 Insulin Human NPH (Humulin N) 40 units BIAC SUBQ 10/25/17 07:00 11/24/17 06:59 10/25/17 09:13 Magnesium Hydroxide (Mom) 30 ml HSPRN PRN ORAL Constipation 10/25/17 06:30 11/24/17 06:29 Metformin HCl (Glucophage) 1,000 mg BID ORAL 10/25/17 09:00 11/24/17 08:59 10/25/17 08:56 Morphine Sulfate (Morphine Sulfate) 4 mg Q4H PRN IVP Severe Pain (Pain Scale 7-10) 10/25/17 06:30 11/01/17 06:29 Nitroglycerin (Ntg) 0.4 mg Q5M PRN SL Prn Chest Pain 10/25/17 06:30 11/24/17 06:29 Ondansetron HCl (Zofran) 4 mg Q6H PRN IVP Nausea & Vomiting 10/25/17 06:30 11/24/17 06:29 Pantoprazole (Protonix) 40 mg Q24HRS ORAL 10/25/17 08:00 11/24/17 07:59 10/25/17 08:56 Polyethylene Glycol (Miralax) 17 gm DAILYPRN PRN ORAL Constipation 10/25/17 06:30 11/24/17 06:29 Sitagliptin Phosphate (Januvia) 25 mg BID ORAL 10/25/17 09:00 11/24/17 08:59 10/25/17 08:56 Temazepam (Restoril) 15 mg DAILYPRN PRN ORAL Insomnia 10/25/17 06:30 11/01/17 06:29 Assessment/Plan Problem List: (1) ACS (acute coronary syndrome) ICD Codes: I24.9 - Acute ischemic heart disease, unspecified SNOMED: 844566800 (2) Hypertension ICD Codes: I10 - Essential (primary) hypertension SNOMED: 35855625 (3) Hysterical disorder ICD Codes: 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
--- NOTE | 2017-10-25 13:46 | History & Physical ---
History and Physical History & Physicial Dictated for Int Med-Dr Trejo no. [id number]. Isael Hutton MD Oct 25, 2017 13:46
[2017-10-25] MEDS: Heparin 5000 units/ml inj SUBQ SCH ×2 (14:52→20:28)
--- NOTE | 2017-10-25 16:30 | Consultation ---
History of Present Illness General Date patient seen: Oct 25, 2017 Time patient seen: 16:52 Chief Complaint: Chest Pain Present Illness HPI Patient admitted for chest pain r/o ACS in setting of argument w.grandmother. CXR clear, initial troponin negative. Hx of HTN and DM, no previous [place] Allergies: Coded Allergies: CODEINE (Verified Allergy, Unknown, 10/24/17) SULFA (SULFONAMIDE ANTIBIOTICS) (Verified Allergy, Unknown, 10/24/17) Medication History Scheduled Carisoprodol (Soma), 250 MG PO Q6H, (Reported) Hum Insulin Nph/Reg Insulin Hm (Humulin 70-30 Vial), 50 SUBQ BIDAC, (Reported) Hydrochlorothiazide* (Hydrochlorothiazide*), 25 MG ORAL DAILY, (Reported) Lansoprazole* (Prevacid*), 25 MG ORAL BID, (Reported) Metformin Hcl* (Metformin Hcl*), 1,000 MG ORAL BID, (Reported) Sitagliptin* (Januvia*), 25 MG ORAL BID, (Reported) Scheduled PRN Hydrocodone Bit/Acetaminophen 5-325* ([place] 5-325*), 1 TAB ORAL Q4H PRN for For Pain, (Reported) Patient History History Provided By: Patient Healthcare decision maker Resuscitation status Full Code Advanced Directive on File Review of Systems Constitutional: Reports: no symptoms Eye: Reports: no symptoms Respiratory: Reports: no symptoms Cardiovascular: Reports: chest pain Gastrointestinal: Reports: no symptoms Genitourinary: Reports: no symptoms Musculoskeletal: Reports: no symptoms Skin: Reports: no symptoms Psychiatric: Reports: no symptoms Neurological: Reports: no symptoms Endocrine: Reports: no symptoms Physical Exam General Appearance: no apparent distress Lines, tubes and drains: peripheral HEENT: normocephalic Neck: non-tender, normal alignment Respiratory/Chest: chest wall non-tender, lungs clear Cardiovascular/Chest: normal peripheral pulses, normal rate, regular rhythm Abdomen: normal bowel sounds Extremities: normal range of motion 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 Last 24 Hour Vital Signs Date Time Temp Pulse Resp B/P (MAP) Pulse Ox O2 Delivery O2 Flow Rate FiO2 10/25/17 12:00 98.2 97 18 127/73 97 Room Air 98.2 10/25/17 12:00 71 10/25/17 08:00 76 10/25/17 08:00 97.5 76 20 134/73 95 Room Air 97.5 10/25/17 04:00 97.5 67 20 157/75 99 Room Air 97.5 10/25/17 04:00 68 10/25/17 02:20 98.1 84 16 142/94 100 Room Air 98.1 10/25/17 02:00 98.1 84 16 142/94 100 Room Air 98.1 10/25/17 01:05 88 17 122/89 97 Room Air 10/24/17 22:50 98.2 86 15 114/96 99 Room Air 98.2 10/24/17 22:50 86 15 Room Air 10/24/17 22:34 98.4 107 18 157/68 96 Room Air 98.4 Intake and Output 10/24/17 10/25/17 19:00 07:00 Output Total 0 ml Balance 0 ml Output Urine Total 0 ml # Voids 1 Laboratory Tests Test 10/24/17 22:55 10/25/17 13:05 White Blood Count 5.5 K/UL (4.8-10.8) Red Blood Count 3.95 M/UL (4.20-5.40) L Hemoglobin 12.0 G/DL (12.0-16.0) Hematocrit 36.1 % (37.0-47.0) L Mean Corpuscular Volume 91 FL (80-99) Mean Corpuscular Hemoglobin 30.3 PG (27.0-31.0) Mean Corpuscular Hemoglobin Concent 33.2 G/DL (32.0-36.0) Red Cell Distribution Width 12.9 % (11.6-14.8) Platelet Count 203 K/UL (150-450) Mean Platelet Volume 6.5 FL (6.5-10.1) Neutrophils (%) (Auto) 59.4 % (45.0-75.0) Lymphocytes (%) (Auto) 28.6 % (20.0-45.0) Monocytes (%) (Auto) 6.9 % (1.0-10.0) Eosinophils (%) (Auto) 3.5 % (0.0-3.0) H Basophils (%) (Auto) 1.6 % (0.0-2.0) Sodium Level 137 MMOL/L (136-145) Potassium Level 3.6 MMOL/L (3.5-5.1) Chloride Level 104 MMOL/L (98-107) Carbon Dioxide Level 24 MMOL/L (21-32) Anion Gap 9 mmol/L (5-15) Blood Urea Nitrogen 19 mg/dL (7-18) H Creatinine 1.2 MG/DL (0.55-1.30) Estimat Glomerular Filtration Rate mL/min (>60) Glucose Level 444 MG/DL (74-106) H Calcium Level 8.7 MG/DL (8.5-10.1) Total Bilirubin 0.3 MG/DL (0.2-1.0) Aspartate Amino Transf (AST/SGOT) 17 U/L (15-37) Alanine Aminotransferase (ALT/SGPT) 30 U/L (12-78) Alkaline Phosphatase 106 U/L (46-116) Total Creatine Kinase 156 U/L (26-308) Creatine Kinase MB 1.7 NG/ML (0.0-3.6) Creatine Kinase MB Relative Index 1.0 Troponin I 0.034 ng/mL (0.000-0.056) 0.041 ng/mL (0.000-0.056) Total Protein 6.9 G/DL (6.4-8.2) Albumin 3.0 G/DL (3.4-5.0) L Globulin 3.9 g/dL Albumin/Globulin Ratio 0.8 (1.0-2.7) L Height (Feet): 5 Height (Inches): 8.00 Weight (Pounds): 200 Medications Current Medications Medications (Trade) Dose Ordered Sig/Hever Route PRN Reason Start Time Stop Time Status Last Admin Dose Admin Acetaminophen (Tylenol) 650 mg Q4H PRN ORAL Mild Pain (Pain Scale 1-3) 10/25/17 06:30 11/24/17 06:29 Acetaminophen (Tylenol) 650 mg Q4H PRN ORAL fever 10/25/17 06:30 11/24/17 06:29 Acetaminophen (Tylenol) 650 mg Q4H PRN RECTAL Mild Pain (Pain Scale 1-3) 10/25/17 06:30 7 06:29 Acetaminophen (Tylenol) 650 mg Q4H PRN RECTAL fever 10/25/17 06:30 11/24/17 06:29 Acetaminophen/ Hydrocodone Bitart ([place] 5/325) 1 tab Q4H PRN ORAL For Pain 10/25/17 06:30 11/01/17 06:29 10/25/17 09:48 Aspirin (ASA) 81 mg DAILY ORAL 10/25/17 09:00 11/24/17 08:59 10/25/17 08:56 Bisacodyl (Dulcolax) 10 mg DAILYPRN PRN RECTAL Constipation 10/25/17 06:30 11/24/17 06:29 Carisoprodol (Soma) 350 mg TIDPRN PRN ORAL BACK PAIN 10/25/17 06:30 11/24/17 06:29 Dextrose (Dextrose 50%) 25 ml STAT PRN IV Hypoglycemia 10/25/17 06:30 11/24/17 06:29 Dextrose (Dextrose 50%) 50 ml STAT PRN IV Hypoglycemia 10/25/17 06:30 11/24/17 06:29 Diphenhydramine HCl (Benadryl) 25 mg Q6H PRN ORAL Itching/Pruritis 10/25/17 06:30 11/24/17 06:29 Docusate Sodium (Colace) 100 mg EVERY 12 HOURS ORAL 10/25/17 09:00 11/24/17 08:59 10/25/17 08:56 Heparin Sodium (Porcine) (Heparin 5000 units/ml) 5,000 units EVERY 8 HOURS SUBQ 10/25/17 14:00 11/24/17 13:59 10/25/17 14:52 Hydrochlorothiazide (Hydrodiuril) 25 mg DAILY ORAL 10/25/17 09:00 11/24/17 08:59 10/25/17 08:56 Insulin Aspart (NovoLOG) BEFORE MEALS AND HS SUBQ 10/25/17 07:00 11/24/17 06:59 10/25/17 12:11 Insulin Human NPH (Humulin N) 40 units BIAC SUBQ 10/25/17 07:00 11/24/17 06:59 10/25/17 09:13 Magnesium Hydroxide (Mom) 30 ml HSPRN PRN ORAL Constipation 10/25/17 06:30 11/24/17 06:29 Metformin HCl (Glucophage) 1,000 mg BID ORAL 10/25/17 09:00 11/24/17 08:59 10/25/17 08:56 Morphine Sulfate (Morphine Sulfate) 4 mg Q4H PRN IVP Severe Pain (Pain Scale 7-10) 10/25/17 06:30 11/01/17 06:29 Nitroglycerin (Ntg) 0.4 mg Q5M PRN SL Prn Chest Pain 10/25/17 06:30 11/24/17 06:29 Ondansetron HCl (Zofran) 4 mg Q6H PRN IVP Nausea & Vomiting 10/25/17 06:30 11/24/17 06:29 Pantoprazole (Protonix) 40 mg Q24HRS ORAL 10/25/17 08:00 11/24/17 07:59 10/25/17 08:56 Polyethylene Glycol (Miralax) 17 gm DAILYPRN PRN ORAL Constipation 10/25/17 06:30 11/24/17 06:29 Sitagliptin Phosphate (Januvia) 25 mg BID ORAL 10/25/17 09:00 11/24/17 08:59 10/25/17 08:56 Temazepam (Restoril) 15 mg DAILYPRN PRN ORAL Insomnia 10/25/17 06:30 11/01/17 06:29 Assessment/Plan Status: stable Assessment/Plan Chest pain HTN DM 1) Serial EKG/Troponin 2) Aspirin 3) Blood pressure control 4) nitro prn chest pain 5) Inducible stress test to evaluate for ischemia given risk factors 6) Heparin gtt if chest pain continues, EKG changes, elevated troponin - currently not needed 7) statin therapy 8) Echocardiogram as outpatient to evaluate LV function Tian Cespedes M.D. Oct 25, 2017 16:30
--- NOTE | 2017-10-25 21:01 | History and Physical Report ---
DATE OF ADMISSION: 10/25/2017 CHIEF COMPLAINT: The patient is a 76-year-old female who presents with chief complaint of chest pain. HISTORY OF PRESENT ILLNESS: The patient states history of present illness began yesterday, 10/24/2017. The patient had a heated argument with her granddaughter. The patient began to experience substernal chest pain. There was no radiation to the jaw or to the shoulder. The patient presented to [facility]. The patient was found to have elevated troponin. The patient was admitted for chest pain to rule out acute coronary syndrome. REVIEW OF SYSTEMS: CONSTITUTIONAL: The patient denies weight loss or weight gain. The patient denies fevers or chills. HEENT: The patient denies ear or throat pain. The patient denies headache. CARDIOVASCULAR: The patient complains of chest pain as above. The patient denies palpitations. CHEST: The patient denies wheeze or shortness of breath. ABDOMEN: The patient denies nausea, vomiting, diarrhea, or constipation. GENITOURINARY: The patient denies dysuria or increased frequency of urination. NEUROMUSCULAR: The patient denies seizures or generalized weakness. PAST MEDICAL HISTORY: Significant for, 1. Type 2 diabetes. 2. Hypertension. PAST SURGICAL HISTORY: Significant for, 1. Cholecystectomy. 2. Appendectomy. 3. Hiatal hernia repair. CURRENT MEDICATIONS: 1. Soma 350 mg one tablet p.o. q.6 hours p.r.n. 2. Regular insulin sliding scale. 3. Hydrochlorothiazide 25 mg p.o. daily. 4. Christine 5/325 mg one tablet p.o. . 5. Prevacid 15 mg p.o. twice daily. 6. Metformin 1000 mg p.o. twice daily. 7. Januvia 25 mg p.o. twice daily. ALLERGIES: 1. Codeine. 2. Sulfa drugs. SOCIAL HISTORY: The patient is a . The patient lives with her grandchildren. The patient denies tobacco or alcohol use. PHYSICAL EXAMINATION: VITAL SIGNS: Temperature 98.2, respirations 15 to 17, blood pressure 114 to 142 over 89 to 96. GENERAL: The patient is a well-developed and well-nourished female, in no apparent distress. HEENT: Eyes, pupils equal and responsive to light and accommodation. Extraocular movements are intact. NECK: Supple without lymphadenopathy. CHEST: Lungs are clear to auscultation bilaterally without wheezes or rales. CARDIOVASCULAR: Regular rhythm and rate. S1 and S2 are normal without murmurs, rubs, or gallops. ABDOMEN: Soft, nontender, and nondistended. Positive bowel sounds. No evidence of hepatosplenomegaly. Currently, no rebound or guarding noted. EXTREMITIES: Negative for clubbing, cyanosis, or edema. RECTAL/GENITAL: Refused. NEUROLOGIC: Cranial nerves II through XII grossly intact without focal deficits. Motor strength is 5/5 bilaterally intact. Deep tendon reflexes 2+ plantar. LABORATORY STUDIES: WBC 5.5, hemoglobin 12.0, hematocrit 36.1, platelets 203,000. Sodium 137, potassium 3.6, chloride 104, CO2 24, BUN 19, creatinine 1.2, and glucose elevated at 444. Troponin elevated at 0.034. Chest x-ray was reported as no acute disease revealed bilateral perihilar opacities consistent with pulmonary edema versus consolidation. An EKG demonstrated sinus tachycardia at 104 beats per minute. There were no ST changes or Q-waves noted. ASSESSMENT: This is a 76-year-old female. 1. Chest pain. 2. Elevated troponin. 3. Diabetes type 2. 4. Hypertension. TREATMENT: 1. Chest pain/elevated troponin. A Cardiology consultation is pending. Serial troponin levels will be performed. A Cardiolite stress test is pending. We will follow recommendations of Cardiology. 2. Diabetes type 2. Continue regular insulin sliding scale. 3. Hypertension. Continue hydrochlorothiazide as above. Isael Hutton M.D. DR: KAMALA JOB#: [id number] CC:
--- NOTE | 2017-10-25 23:11 | Consultation ---
History of Present Illness General Date patient seen: Oct 27, 2017 Chief Complaint: Chest Pain Present Illness HPI 76-year-old female with a history of anxiety d/o, high blood pressure and diabetes patient presents with chief complaint of chest pain. the pt was admitted and was very upset after having a fight with her granddaughter. the pt was anxious and irritable stated that she had difficulty breathing. Allergies: Coded Allergies: CODEINE (Verified Allergy, Mild, Itching, 08/26/13) SULFA (SULFONAMIDE ANTIBIOTICS) (Verified Adverse Reaction, Mild, 08/26/13) VOMIT Medication History Scheduled Amlodipine Besylate (Norvasc), 10 MG ORAL DAILY, (Reported) Aspirin* (Aspir 81*), 81 MG ORAL DAILY, (Reported) Carisoprodol (Soma), 250 MG PO Q6H, (Reported) Docusate Sodium (Docusate Sodium), 100 MG ORAL BID, (Reported) Ferrous Sulfate (Ferosul), 325 MG PO BID, (Reported) Hum Insulin Nph/Reg Insulin Hm (Humulin 70-30 Vial), 50 SUBQ BIDAC, (Reported) Hydrochlorothiazide* (Hydrochlorothiazide*), 25 MG ORAL DAILY, (Reported) Insuln Asp Prt/Insulin Aspart (Novolog Mix 70-30 Flexpen Syrn), 40 UNIT SQ BEFORE BREAKFAST, (Reported) Lansoprazole* (Prevacid*), 30 MG ORAL DAILY, (Reported) Metformin Hcl* (Metformin Hcl*), 1,000 MG ORAL TID, (Reported) Simvastatin (Zocor), 20 MG ORAL BEDTIME, (Reported) Sitagliptin (Januvia), 100 MG ORAL BEFORE BREAKFAST, (Reported) Valsartan/Hydrochlorothiazide 320-25MG (Diovan Hct 320-25 Mg Tablet), 1 TAB ORAL DAILY, (Reported) Scheduled PRN Clonidine HCl (Clonidine HCl ER), 0.1 MG PO Q6HR PRN Hydrocodone Bit/Acetaminophen (Vicodin 5-300 Mg Tablet), 1 TAB ORAL Q4H PRN for For Pain, (Reported) Zolpidem Tartrate* (Ambien*), 5 MG ORAL BEDTIME PRN for Insomnia, (Reported) Discontinued Medications Hydrochlorothiazide* (Hydrochlorothiazide*), 25 MG ORAL DAILY, (Reported) Discontinued Reason: Therapy completed Hydrocodone Bit/Acetaminophen 5-325* ([place] 5-325*), 1 TAB ORAL Q4H PRN for For Pain, (Reported) Discontinued Reason: Therapy completed Insulin Detemir (Levemir Flexpen), 25 UNITS SUBQ BID Discontinued Reason: Therapy completed Lansoprazole* (Prevacid*), 25 MG ORAL BID, (Reported) Discontinued Reason: Therapy completed Metformin Hcl* (Metformin Hcl*), 1,000 MG ORAL BID, (Reported) Discontinued Reason: Therapy completed Sitagliptin* (Januvia*), 25 MG ORAL BID, (Reported) Discontinued Reason: Therapy completed Unable to Obtain Medications (Unable To Obtain Meds), (Reported) Discontinued Reason: Therapy completed Valsartan (Diovan), 160 MG ORAL DAILY Discontinued Reason: Therapy completed Patient History Limited by: medical condition History Provided By: Patient, Medical Record, PMD Healthcare decision maker Resuscitation status Full Code Advanced Directive on File Past Medical/Surgical History Past Medical/Surgical History: (1) Accelerated hypertension (2) Chest pain with high risk of acute coronary syndrome (3) PUD (peptic ulcer disease) (4) GERD (gastroesophageal reflux disease) (5) DDD (degenerative disc disease), lumbar (6) Radiculopathy of lumbar region (7) Headache (8) Hypertension (9) Diabetes mellitus (10) Major depression (11) ACS (12) Diabetes mellitus (13) Hypertension (14) ACS (acute coronary syndrome) (15) Hysterical disorder (16) Chest pain Review of Systems Psychiatric: Reports: prior hx, anxiety, depressed feelings, emotional problems Physical Exam General Appearance: WD/WN, no apparent distress, alert, obese Neurologic: oriented x 3, responsive, depressed affect Last 24 Hour Vital Signs Date Time Temp Pulse Resp B/P (MAP) Pulse Ox O2 Delivery O2 Flow Rate FiO2 10/25/17 21:00 97.7 71 18 159/65 99 Room Air 97.7 10/25/17 20:00 72 10/25/17 16:00 68 10/25/17 16:00 97.9 72 18 157/66 99 Room Air 97.9 10/25/17 12:00 98.2 97 18 127/73 97 Room Air 98.2 10/25/17 12:00 71 10/25/17 08:00 76 10/25/17 08:00 97.5 76 20 134/73 95 Room Air 97.5 10/25/17 04:00 97.5 67 20 157/75 99 Room Air 97.5 10/25/17 04:00 68 10/25/17 02:20 98.1 84 16 142/94 100 Room Air 98.1 10/25/17 02:00 98.1 84 16 142/94 100 Room Air 98.1 10/25/17 01:05 88 17 122/89 97 Room Air Intake and Output 10/24/17 10/25/17 19:00 07:00 Output Total 0 ml Balance 0 ml Output Urine Total 0 ml # Voids 1 Laboratory Tests Test 10/25/17 13:05 Troponin I 0.041 ng/mL (0.000-0.056) Height (Feet): 5 Height (Inches): 8.00 Weight (Pounds): 200 Medications Current Medications Medications (Trade) Dose Ordered Sig/Hever Route PRN Reason Start Time Stop Time Status Last Admin Dose Admin Acetaminophen (Tylenol) 650 mg Q4H PRN ORAL Mild Pain (Pain Scale 1-3) 10/25/17 06:30 11/24/17 06:29 Acetaminophen (Tylenol) 650 mg Q4H PRN ORAL fever 10/25/17 06:30 11/24/17 06:29 Acetaminophen (Tylenol) 650 mg Q4H PRN RECTAL Mild Pain (Pain Scale 1-3) 10/25/17 06:30 11/24/17 06:29 Acetaminophen (Tylenol) 650 mg Q4H PRN RECTAL fever 10/25/17 06:30 11/24/17 06:29 Acetaminophen/ Hydrocodone Bitart ([place] 5/325) 1 tab Q4H PRN ORAL For Pain 10/25/17 06:30 11/01/17 06:29 10/25/17 20:26 Aspirin (ASA) 81 mg DAILY ORAL 10/25/17 09:00 11/24/17 08:59 10/25/17 08:56 Bisacodyl (Dulcolax) 10 mg DAILYPRN PRN RECTAL Constipation 10/25/17 06:30 11/24/17 06:29 Carisoprodol (Soma) 350 mg TIDPRN PRN ORAL BACK PAIN 10/25/17 06:30 11/24/17 06:29 Dextrose (Dextrose 50%) 25 ml STAT PRN IV Hypoglycemia 10/25/17 06:30 11/24/17 06:29 Dextrose (Dextrose 50%) 50 ml STAT PRN IV Hypoglycemia 10/25/17 06:30 11/24/17 06:29 Diphenhydramine HCl (Benadryl) 25 mg Q6H PRN ORAL Itching/Pruritis 10/25/17 06:30 11/24/17 06:29 Docusate Sodium (Colace) 100 mg EVERY 12 HOURS ORAL 10/25/17 09:00 11/24/17 08:59 10/25/17 20:26 Heparin Sodium (Porcine) (Heparin 5000 units/ml) 5,000 units EVERY 8 HOURS SUBQ 10/25/17 14:00 11/24/17 13:59 10/25/17 20:28 Hydrochlorothiazide (Hydrodiuril) 25 mg DAILY ORAL 10/25/17 09:00 11/24/17 08:59 10/25/17 08:56 Insulin Aspart (NovoLOG) BEFORE MEALS AND HS SUBQ 10/25/17 07:00 11/24/17 06:59 10/25/17 20:25 Insulin Human NPH (Humulin N) 40 units BIAC SUBQ 10/25/17 07:00 11/24/17 06:59 10/25/17 17:13 Magnesium Hydroxide (Mom) 30 ml HSPRN PRN ORAL Constipation 10/25/17 06:30 11/24/17 06:29 Metformin HCl (Glucophage) 1,000 mg BID ORAL 10/25/17 09:00 11/24/17 08:59 10/25/17 18:20 Morphine Sulfate (Morphine Sulfate) 4 mg Q4H PRN IVP Severe Pain (Pain Scale 7-10) 10/25/17 06:30 11/01/17 06:29 Nitroglycerin (Ntg) 0.4 mg Q5M PRN SL Prn Chest Pain 10/25/17 06:30 11/24/17 06:29 Ondansetron HCl (Zofran) 4 mg Q6H PRN IVP Nausea & Vomiting 10/25/17 06:30 11/24/17 06:29 Pantoprazole (Protonix) 40 mg Q24HRS ORAL 10/25/17 08:00 11/24/17 07:59 10/25/17 08:56 Polyethylene Glycol (Miralax) 17 gm DAILYPRN PRN ORAL Constipation 10/25/17 06:30 11/24/17 06:29 Sitagliptin Phosphate (Januvia) 25 mg BID ORAL 10/25/17 09:00 11/24/17 08:59 10/25/17 18:20 Temazepam (Restoril) 15 mg DAILYPRN PRN ORAL Insomnia 10/25/17 06:30 11/01/17 06:29 Assessment/Plan Status: stable Assessment/Plan mdd anxiety d/o ativan prn the pt is reluctant to take antidepressant Antonino Goldman M.D. Oct 25, 2017 23:11
[2017-10-26] VITALS: BP 141/63
[2017-10-26] MEDS ORDERED: LORazepam 1mg tab ORAL PRN (02:15)
[2017-10-26] MEDS: Norco 5mg/325mg tab ORAL PRN ×2 (03:03→19:41)
[2017-10-26 04:00] VITALS: BP 128/75
[2017-10-26] MEDS: Insulin NPH SUBQ SCH ×2 (06:19→16:41)
[2017-10-26] MEDS: NovoLOG Insulin Flexpen SUBQ SCH ×4 (06:20→21:06)
[2017-10-26] MEDS: Heparin 5000 units/ml inj SUBQ SCH ×3 (06:23→21:04)
[2017-10-26 08:00] VITALS: BP 158/79
[2017-10-26 08:39] LABS: BASOPHILS % (AUTO) 1.2 % (0.0-2.0); EOSINOPHILS % (AUTO) 4.3 % (0.0-3.0); HEMATOCRIT 32.5 % (37.0-47.0); HEMOGLOBIN 10.9 G/DL (12.0-16.0); MEAN CORPUSCULAR VOLUME 93 FL (80-99); MONOCYTES % (AUTO) 7.1 % (1.0-10.0); NEUTROPHILS % (AUTO) 34.4 % (45.0-75.0); PLATELET COUNT 182 K/UL (150-450); RED CELL DISTRIBUTION WIDTH 13.1 % (11.6-14.8); WHITE BLOOD COUNT 4.4 K/UL (4.8-10.8)
[2017-10-26] MEDS: sitaGLIPtin 25mg tab ORAL SCH ×2 (08:41→17:18)
[2017-10-26] MEDS: Aspirin Baby 81mg ORAL SCH (08:41)
[2017-10-26] MEDS: metFORMIN 500mg tab ORAL SCH ×2 (08:41→17:17)
[2017-10-26] MEDS: Docusate 100mg cap ORAL SCH ×2 (08:41→21:06)
[2017-10-26 08:45] LABS: INR 0.9 (0.9-1.1)
[2017-10-26 09:16] LABS: ALANINE AMINOTRANSFERASE 26 U/L (12-78); ALBUMIN 2.7 G/DL (3.4-5.0); ALBUMIN/GLOBULIN RATIO 0.8 (1.0-2.7); ALKALINE PHOSPHATASE 78 U/L (46-116); ANION GAP 7 mmol/L (5-15); ASPARTATE AMINO TRANSFERASE 17 U/L (15-37); BILIRUBIN,TOTAL 0.2 MG/DL (0.2-1.0); BLOOD UREA NITROGEN 21 mg/dL (7-18); CALCIUM 9.1 MG/DL (8.5-10.1); CARBON DIOXIDE 29 MMOL/L (21-32); CHLORIDE 107 MMOL/L (98-107); CHOLESTEROL 143 MG/DL (< 200); CREATININE 1.1 MG/DL (0.55-1.30); POTASSIUM 4.2 MMOL/L (3.5-5.1); SODIUM 142 MMOL/L (136-145)
--- NOTE | 2017-10-26 10:03 | Pulmonology Progress Note ---
Assessment/Plan Problems: (1) ACS (acute coronary syndrome) (2) Hypertension (3) Hysterical disorder (4) Diabetes mellitus Assessment/Plan all troponin negative echo pending Cardio note reviewed and appreciated prn nitro for chest pain dvt prophylaxis Subjective ROS Limited/Unobtainable: No Interval Events: no new complains, no chest pain Allergies: Coded Allergies: CODEINE (Verified Allergy, Unknown, 10/24/17) SULFA (SULFONAMIDE ANTIBIOTICS) (Verified Allergy, Unknown, 10/24/17) Objective Last 24 Hour Vital Signs Date Time Temp Pulse Resp B/P (MAP) Pulse Ox O2 Delivery O2 Flow Rate FiO2 10/26/17 08:00 98.2 72 19 158/79 98 Room Air 98.2 10/26/17 08:00 67 10/26/17 04:00 67 10/26/17 04:00 97.8 66 18 128/75 99 Room Air 97.8 10/26/17 00:00 76 10/26/17 00:00 97.6 71 18 141/63 98 Room Air 97.6 10/25/17 21:00 97.7 71 18 159/65 99 Room Air 97.7 10/25/17 20:00 72 10/25/17 16:00 68 10/25/17 16:00 97.9 72 18 157/66 99 Room Air 97.9 10/25/17 12:00 98.2 97 18 127/73 97 Room Air 98.2 10/25/17 12:00 71 Intake and Output 10/25/17 10/26/17 19:00 07:00 Intake Total 360 ml 200 ml Balance 360 ml 200 ml Intake Oral 360 ml 200 ml # Voids 2 General Appearance: WD/WN HEENT: normocephalic, atraumatic Respiratory/Chest: chest wall non-tender, lungs clear Breasts: no masses Cardiovascular: normal rate Abdomen: normal bowel sounds, soft, non tender, no organomegaly 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, no motor/sensory deficits Laboratory Tests 10/25/17 13:05: Troponin I 0.041 10/26/17 07:18: Troponin I 0.041, White Blood Count 4.4L, Red Blood Count 3.50L, Hemoglobin 10.9L, Hematocrit 32.5L, Mean Corpuscular Volume 93, Mean Corpuscular Hemoglobin 31.1H, Mean Corpuscular Hemoglobin Concent 33.5, Red Cell Distribution Width 13.1, Platelet Count 182, Mean Platelet Volume 6.7, Neutrophils (%) (Auto) 34.4L, Lymphocytes (%) (Auto) 53.0H, Monocytes (%) (Auto ) 7.1, Eosinophils (%) (Auto) 4.3H, Basophils (%) (Auto) 1.2, Prothrombin Time 9.6, Prothromb Time International Ratio 0.9, Activated Partial Thromboplast Time 28, Sodium Level 142, Potassium Level 4.2, Chloride Level 107, Carbon Dioxide Level 29, Anion Gap 7, Blood Urea Nitrogen 21H, Creatinine 1.1, Estimat Glomerular Filtration Rate , Glucose Level 163#H, Calcium Level 9.1, Phosphorus Level 4.0, Magnesium Level 1.6L, Total Bilirubin 0.2, Aspartate Amino Transf ( AST/SGOT) 17, Alanine Aminotransferase (ALT/SGPT) 26, Alkaline Phosphatase 78, Total Protein 6.1L, Albumin 2.7L, Globulin 3.4, Albumin/Globulin Ratio 0.8L, Cholesterol Level 143 Current Medications Medications (Trade) Dose Ordered Sig/Hever Route PRN Reason Start Time Stop Time Status Last Admin Dose Admin Acetaminophen (Tylenol) 650 mg Q4H PRN ORAL Mild Pain (Pain Scale 1-3) 10/25/17 06:30 11/24/17 06:29 Acetaminophen (Tylenol) 650 mg Q4H PRN ORAL fever 10/25/17 06:30 11/24/17 06:29 Acetaminophen (Tylenol) 650 mg Q4H PRN RECTAL Mild Pain (Pain Scale 1-3) 10/25/17 06:30 11/24/17 06:29 Acetaminophen (Tylenol) 650 mg Q4H PRN RECTAL fever 10/25/17 06:30 11/24/17 06:29 Acetaminophen/ Hydrocodone Bitart ([place] 5/325) 1 tab Q4H PRN ORAL For Pain 10/25/17 06:30 11/01/17 06:29 10/26/17 03:03 Aspirin (ASA) 81 mg DAILY ORAL 10/25/17 09:00 11/24/17 08:59 10/26/17 08:41 Bisacodyl (Dulcolax) 10 mg DAILYPRN PRN RECTAL Constipation 10/25/17 06:30 11/24/17 06:29 Carisoprodol (Soma) 350 mg TIDPRN PRN ORAL BACK PAIN 10/25/17 06:30 11/24/17 06:29 Dextrose (Dextrose 50%) 25 ml STAT PRN IV Hypoglycemia 10/25/17 06:30 11/24/17 06:29 Dextrose (Dextrose 50%) 50 ml STAT PRN IV Hypoglycemia 10/25/17 06:30 11/24/17 06:29 Diphenhydramine HCl (Benadryl) 25 mg Q6H PRN ORAL Itching/Pruritis 10/25/17 06:30 11/24/17 06:29 Docusate Sodium (Colace) 100 mg EVERY 12 HOURS ORAL 10/25/17 09:00 11/24/17 08:59 10/26/17 08:41 Heparin Sodium (Porcine) (Heparin 5000 units/ml) 5,000 units EVERY 8 HOURS SUBQ 10/25/17 14:00 11/24/17 13:59 10/26/17 06:23 Hydrochlorothiazide (Hydrodiuril) 25 mg DAILY ORAL 10/25/17 09:00 11/24/17 08:59 10/26/17 08:41 Insulin Aspart (NovoLOG) BEFORE MEALS AND HS SUBQ 10/25/17 07:00 11/24/17 06:59 10/26/17 06:20 Insulin Human NPH (Humulin N) 40 units BIAC SUBQ 10/25/17 07:00 11/24/17 06:59 10/26/17 06:19 Lorazepam (Ativan) 1 mg Q6H PRN ORAL anxiety 10/26/17 02:15 11/02/17 02:14 Magnesium Hydroxide (Mom) 30 ml HSPRN PRN ORAL Constipation 10/25/17 06:30 11/24/17 06:29 Metformin HCl (Glucophage) 1,000 mg BID ORAL 10/25/17 09:00 11/24/17 08:59 10/26/17 08:41 Morphine Sulfate (Morphine Sulfate) 4 mg Q4H PRN IVP Severe Pain (Pain Scale 7-10) 10/25/17 06:30 11/01/17 06:29 Nitroglycerin (Ntg) 0.4 mg Q5M PRN SL Prn Chest Pain 10/25/17 06:30 11/24/17 06:29 Ondansetron HCl (Zofran) 4 mg Q6H PRN IVP Nausea & Vomiting 10/25/17 06:30 11/24/17 06:29 Pantoprazole (Protonix) 40 mg Q24HRS ORAL 10/25/17 08:00 11/24/17 07:59 10/26/17 08:41 Polyethylene Glycol (Miralax) 17 gm DAILYPRN PRN ORAL Constipation 10/25/17 06:30 11/24/17 06:29 Sitagliptin Phosphate (Januvia) 25 mg BID ORAL 10/25/17 09:00 11/24/17 08:59 10/26/17 08:41 Temazepam (Restoril) 15 mg DAILYPRN PRN ORAL Insomnia 10/25/17 06:30 11/01/17 06:29 Anna Mckeon MD Oct 26, 2017 10:03
[2017-10-26 12:00] VITALS: BP 168/76
[2017-10-26] MEDS: Magnesium Oxide 400mg tab ORAL SCH ×2 (13:07→17:18)
--- NOTE | 2017-10-26 14:07 | Internal Med Progress Note ---
Subjective Date of Service: Oct 26, 2017 Physician Name Isael Hutton Attending Physician Emre Trejo MD Current Medications Medications (Trade) Dose Ordered Sig/Hever Route PRN Reason Start Time Stop Time Status Last Admin Dose Admin Acetaminophen (Tylenol) 650 mg Q4H PRN ORAL Mild Pain (Pain Scale 1-3) 10/25/17 06:30 11/24/17 06:29 Acetaminophen (Tylenol) 650 mg Q4H PRN ORAL fever 10/25/17 06:30 11/24/17 06:29 Acetaminophen (Tylenol) 650 mg Q4H PRN RECTAL Mild Pain (Pain Scale 1-3) 10/25/17 06:30 11/24/17 06:29 Acetaminophen (Tylenol) 650 mg Q4H PRN RECTAL fever 10/25/17 06:30 11/24/17 06:29 Acetaminophen/ Hydrocodone Bitart ([place] 5/325) 1 tab Q4H PRN ORAL For Pain 10/25/17 06:30 11/01/17 06:29 10/26/17 03:03 Aspirin (ASA) 81 mg DAILY ORAL 10/25/17 09:00 11/24/17 08:59 10/26/17 08:41 Bisacodyl (Dulcolax) 10 mg DAILYPRN PRN RECTAL Constipation 10/25/17 06:30 11/24/17 06:29 Carisoprodol (Soma) 350 mg TIDPRN PRN ORAL BACK PAIN 10/25/17 06:30 11/24/17 06:29 Dextrose (Dextrose 50%) 25 ml STAT PRN IV Hypoglycemia 10/25/17 06:30 11/24/17 06:29 Dextrose (Dextrose 50%) 50 ml STAT PRN IV Hypoglycemia 10/25/17 06:30 11/24/17 06:29 Diphenhydramine HCl (Benadryl) 25 mg Q6H PRN ORAL Itching/Pruritis 10/25/17 06:30 11/24/17 06:29 Docusate Sodium (Colace) 100 mg EVERY 12 HOURS ORAL 10/25/17 09:00 11/24/17 08:59 10/26/17 08:41 Heparin Sodium (Porcine) (Heparin 5000 units/ml) 5,000 units EVERY 8 HOURS SUBQ 10/25/17 14:00 11/24/17 13:59 10/26/17 13:12 Hydrochlorothiazide (Hydrodiuril) 25 mg DAILY ORAL 10/25/17 09:00 11/24/17 08:59 10/26/17 08:41 Insulin Aspart (NovoLOG) BEFORE MEALS AND HS SUBQ 10/25/17 07:00 11/24/17 06:59 10/26/17 06:20 Insulin Human NPH (Humulin N) 40 units BIAC SUBQ 10/25/17 07:00 11/24/17 06:59 10/26/17 06:19 Lorazepam (Ativan) 1 mg Q6H PRN ORAL anxiety 10/26/17 02:15 11/02/17 02:14 Magnesium Hydroxide (Mom) 30 ml HSPRN PRN ORAL Constipation 10/25/17 06:30 11/24/17 06:29 Magnesium Oxide (Mag-Ox 400mg) 400 mg BID ORAL 10/26/17 13:30 11/25/17 13:29 10/26/17 13:07 Metformin HCl (Glucophage) 1,000 mg BID ORAL 10/25/17 09:00 11/24/17 08:59 10/26/17 08:41 Morphine Sulfate (Morphine Sulfate) 4 mg Q4H PRN IVP Severe Pain (Pain Scale 7-10) 10/25/17 06:30 11/01/17 06:29 Nitroglycerin (Ntg) 0.4 mg Q5M PRN SL Prn Chest Pain 10/25/17 06:30 11/24/17 06:29 Ondansetron HCl (Zofran) 4 mg Q6H PRN IVP Nausea & Vomiting 10/25/17 06:30 11/24/17 06:29 Pantoprazole (Protonix) 40 mg Q24HRS ORAL 10/25/17 08:00 11/24/17 07:59 10/26/17 08:41 Polyethylene Glycol (Miralax) 17 gm DAILYPRN PRN ORAL Constipation 10/25/17 06:30 11/24/17 06:29 10/26/17 13:07 Sitagliptin Phosphate (Januvia) 25 mg BID ORAL 10/25/17 09:00 11/24/17 08:59 10/26/17 08:41 Temazepam (Restoril) 15 mg DAILYPRN PRN ORAL Insomnia 10/25/17 06:30 11/01/17 06:29 Allergies: Coded Allergies: CODEINE (Verified Allergy, Unknown, 10/24/17) SULFA (SULFONAMIDE ANTIBIOTICS) (Verified Allergy, Unknown, 10/24/17) ROS Limited/Unobtainable: No Constitutional: Reports: no symptoms HEENT: Reports: no symptoms Cardiovascular: Reports: chest pain Respiratory: Reports: no symptoms Gastrointestinal/Abdominal: Reports: no symptoms Genitourinary: Reports: no symptoms Neurologic/Psychiatric: Reports: no symptoms Subjective 76 YO F admitted with chest pain. Cover for Int Quang-Dr Trejo. Objective Last Vital Signs Date Time Temp Pulse Resp B/P (MAP) Pulse Ox O2 Delivery O2 Flow Rate FiO2 10/26/17 12:00 97.8 68 20 168/76 100 Room Air 97.8 General Appearance: WD/WN, no apparent distress, alert EENT: PERRL/EOMI, normal ENT inspection Neck: non-tender, normal alignment, supple, normal inspection Cardiovascular: normal peripheral pulses, normal rate, regular rhythm, no gallop/murmur, no JVD Respiratory/Chest: chest wall non-tender, lungs clear, normal breath sounds, no respiratory distress, no accessory muscle use Abdomen: normal bowel sounds, non tender, soft, no organomegaly, no mass Extremities: normal range of motion, non-tender Edema: trace edema 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, no motor/sensory deficits Skin: normal pigmentation, warm/dry Laboratory Tests Test 10/26/17 07:18 White Blood Count 4.4 K/UL (4.8-10.8) L Red Blood Count 3.50 M/UL (4.20-5.40) L Hemoglobin 10.9 G/DL (12.0-16.0) L Hematocrit 32.5 % (37.0-47.0) L Mean Corpuscular Volume 93 FL (80-99) Mean Corpuscular Hemoglobin 31.1 PG (27.0-31.0) H Mean Corpuscular Hemoglobin Concent 33.5 G/DL (32.0-36.0) Red Cell Distribution Width 13.1 % (11.6-14.8) Platelet Count 182 K/UL (150-450) Mean Platelet Volume 6.7 FL (6.5-10.1) Neutrophils (%) (Auto) 34.4 % (45.0-75.0) L Lymphocytes (%) (Auto) 53.0 % (20.0-45.0) H Monocytes (%) (Auto) 7.1 % (1.0-10.0) Eosinophils (%) (Auto) 4.3 % (0.0-3.0) H Basophils (%) (Auto) 1.2 % (0.0-2.0) Prothrombin Time 9.6 SEC (9.30-11.50) Prothromb Time International Ratio 0.9 (0.9-1.1) Activated Partial Thromboplast Time 28 SEC (23-33) Sodium Level 142 MMOL/L (136-145) Potassium Level 4.2 MMOL/L (3.5-5.1) Chloride Level 107 MMOL/L (98-107) Carbon Dioxide Level 29 MMOL/L (21-32) Anion Gap 7 mmol/L (5-15) Blood Urea Nitrogen 21 mg/dL (7-18) H Creatinine 1.1 MG/DL (0.55-1.30) Estimat Glomerular Filtration Rate mL/min (>60) Glucose Level 163 MG/DL (74-106) #H Calcium Level 9.1 MG/DL (8.5-10.1) Phosphorus Level 4.0 MG/DL (2.5-4.9) Magnesium Level 1.6 MG/DL (1.8-2.4) L Total Bilirubin 0.2 MG/DL (0.2-1.0) Aspartate Amino Transf (AST/SGOT) 17 U/L (15-37) Alanine Aminotransferase (ALT/SGPT) 26 U/L (12-78) Alkaline Phosphatase 78 U/L (46-116) Troponin I 0.041 ng/mL (0.000-0.056) Total Protein 6.1 G/DL (6.4-8.2) L Albumin 2.7 G/DL (3.4-5.0) L Globulin 3.4 g/dL Albumin/Globulin Ratio 0.8 (1.0-2.7) L Cholesterol Level 143 MG/DL (< 200) Intake and Output 10/25/17 10/26/17 19:00 07:00 Intake Total 360 ml 200 ml Balance 360 ml 200 ml Intake Oral 360 ml 200 ml # Voids 2 Assessment/Plan Problem List: (1) Chest pain Assessment & Plan: Await stress test-see cardiology note. (2) Diabetes mellitus Assessment & Plan: Continue NPH and novolog insulin sliding scale. Continue metformin and januvia (3) Hypertension Assessment & Plan: Continue HCTZ Status: progressing Isael Hutton MD Oct 26, 2017 14:07
[2017-10-26 16:00] VITALS: BP 160/79
--- NOTE | 2017-10-26 16:10 | Cardiology Report ---
APPROVED REPORT EXAM: Two-dimensional and M-mode echocardiogram with Doppler and color Doppler. INDICATION Chest Pain M-Mode DIMENSIONS IVSd0.7 (0.7-1.1cm)Left Atrium (MM)4.2 (1.6-4.0cm) LVDd4.3 (3.5-5.6cm)Aortic Root2.5 (2.0-3.7cm) PWd0.9 (0.7-1.1cm)Aortic Cusp Exc.1.7 (1.5-2.0cm) LVDs2.5 (2.5-4.0cm) PWs1.2 cm Technically difficult study due to poor acoustical windows. Normal left ventricular chamber size, systolic function and wall motion. Left ventricular ejection fraction estimated to be 60-65%. No evidence of left ventricular hypertrophy. No evidence of pericardial or pleural effusion. All other cardiac chamber sizes are within normal limits. Focal aortic valve sclerosis with adequate cusp excursion. Thickened mitral valve leaflets with normal excursion. Mild mitral annulus and aortic root calcification. Pulmonic valve not well visualized. Normal tricuspid valve structure. IVC is not obtainable. A color flow and spectral Doppler study was performed and revealed: No aortic regurgitation. No mitral regurgitation. Mitral diastolic velocities suggest reduced left ventricular relaxation c/w diastolic dysfunction grade 1. No tricuspid regurgitation.
--- NOTE | 2017-10-26 16:38 | Cardiology Report ---
APPROVED REPORT EKG Measurement Heart [id number] Normal sinus rhythm with sinus arrhythmia Normal ECG
--- NOTE | 2017-10-26 16:55 | Cardiology Report ---
APPROVED REPORT EKG Measurement Heart [id number] [place] [id number] Sinus tachycardia Otherwise normal ECG
--- NOTE | 2017-10-26 19:04 | Cardiology Progress Note ---
Assessment/Plan Assessment/Plan Chest pain HTN DM 1) Serial EKG/Troponin - negative for ACS 2) Aspirin 3) Blood pressure control 4) nitro prn chest pain 5) Inducible stress test to evaluate for ischemia given risk factors - to be done as outpatient - low MICK score 6) Heparin gtt if chest pain continues, EKG changes, elevated troponin - currently not needed 7) Statin therapy 8) Echocardiogram as outpatient to evaluate LV function 9) Dispo planning 10) Chest pain resolved, likely anxiety, non cardiac Subjective Cardiovascular: Reports: no symptoms Respiratory: Reports: wheezing Gastrointestinal/Abdominal: Reports: no symptoms Genitourinary: Reports: no symptoms Subjective No acute events, no distress, no Chest pain, troponin negative Objective Last 24 Hour Vital Signs Date Time Temp Pulse Resp B/P (MAP) Pulse Ox O2 Delivery O2 Flow Rate FiO2 10/26/17 16:00 58 10/26/17 16:00 97.8 64 20 160/79 100 Room Air 97.8 10/26/17 12:00 97.8 68 20 168/76 100 Room Air 97.8 10/26/17 12:00 64 10/26/17 08:00 98.2 72 19 158/79 98 Room Air 98.2 10/26/17 08:00 67 10/26/17 04:00 67 10/26/17 04:00 97.8 66 18 128/75 99 Room Air 97.8 10/26/17 00:00 76 10/26/17 00:00 97.6 71 18 141/63 98 Room Air 97.6 10/25/17 21:00 97.7 71 18 159/65 99 Room Air 97.7 10/25/17 20:00 72 General Appearance: no apparent distress EENT: PERRL/EOMI Neck: non-tender Rhythm: NSR Cardiovascular: normal rate Respiratory/Chest: chest wall non-tender Abdomen: normal bowel sounds Extremities: normal range of motion Neurologic: laborer rags II-XII grossly normal Intake and Output 10/25/17 10/26/17 19:00 07:00 Intake Total 360 ml 200 ml Balance 360 ml 200 ml Intake Oral 360 ml 200 ml # Voids 2 Laboratory Tests Test 10/26/17 07:18 White Blood Count 4.4 K/UL (4.8-10.8) L Red Blood Count 3.50 M/UL (4.20-5.40) L Hemoglobin 10.9 G/DL (12.0-16.0) L Hematocrit 32.5 % (37.0-47.0) L Mean Corpuscular Volume 93 FL (80-99) Mean Corpuscular Hemoglobin 31.1 PG (27.0-31.0) H Mean Corpuscular Hemoglobin Concent 33.5 G/DL (32.0-36.0) Red Cell Distribution Width 13.1 % (11.6-14.8) Platelet Count 182 K/UL (150-450) Mean Platelet Volume 6.7 FL (6.5-10.1) Neutrophils (%) (Auto) 34.4 % (45.0-75.0) L Lymphocytes (%) (Auto) 53.0 % (20.0-45.0) H Monocytes (%) (Auto) 7.1 % (1.0-10.0) Eosinophils (%) (Auto) 4.3 % (0.0-3.0) H Basophils (%) (Auto) 1.2 % (0.0-2.0) Prothrombin Time 9.6 SEC (9.30-11.50) Prothromb Time International Ratio 0.9 (0.9-1.1) Activated Partial Thromboplast Time 28 SEC (23-33) Sodium Level 142 MMOL/L (136-145) Potassium Level 4.2 MMOL/L (3.5-5.1) Chloride Level 107 MMOL/L (98-107) Carbon Dioxide Level 29 MMOL/L (21-32) Anion Gap 7 mmol/L (5-15) Blood Urea Nitrogen 21 mg/dL (7-18) H Creatinine 1.1 MG/DL (0.55-1.30) Estimat Glomerular Filtration Rate mL/min (>60) Glucose Level 163 MG/DL (74-106) #H Calcium Level 9.1 MG/DL (8.5-10.1) Phosphorus Level 4.0 MG/DL (2.5-4.9) Magnesium Level 1.6 MG/DL (1.8-2.4) L Total Bilirubin 0.2 MG/DL (0.2-1.0) Aspartate Amino Transf (AST/SGOT) 17 U/L (15-37) Alanine Aminotransferase (ALT/SGPT) 26 U/L (12-78) Alkaline Phosphatase 78 U/L (46-116) Troponin I 0.041 ng/mL (0.000-0.056) Total Protein 6.1 G/DL (6.4-8.2) L Albumin 2.7 G/DL (3.4-5.0) L Globulin 3.4 g/dL Albumin/Globulin Ratio 0.8 (1.0-2.7) L Cholesterol Level 143 MG/DL (< 200) Tian Cespedes M.D. Oct 26, 2017 19:04
[2017-10-26 20:00] VITALS: BP 161/69
[2017-10-27] VITALS: BP 150/61
[2017-10-27] MEDS: Heparin 5000 units/ml inj SUBQ SCH (06:12)
[2017-10-27] MEDS: Insulin NPH SUBQ SCH (06:13)
[2017-10-27] MEDS: NovoLOG Insulin Flexpen SUBQ SCH ×2 (06:14→12:30)
[2017-10-27 08:00] VITALS: BP 150/70
[2017-10-27] MEDS: Aspirin Baby 81mg ORAL SCH (08:40)
[2017-10-27] MEDS: sitaGLIPtin 25mg tab ORAL SCH (08:40)
[2017-10-27] MEDS: Magnesium Oxide 400mg tab ORAL SCH (08:40)
[2017-10-27] MEDS: Docusate 100mg cap ORAL SCH (08:41)
[2017-10-27] MEDS: metFORMIN 500mg tab ORAL SCH (08:41)
--- NOTE | 2017-10-27 10:58 | Internal Med Progress Note ---
Subjective Date of Service: Oct 27, 2017 Physician Name Isael Hutton Attending Physician Emre Trejo MD Current Medications Medications (Trade) Dose Ordered Sig/Hever Route PRN Reason Start Time Stop Time Status Last Admin Dose Admin Acetaminophen (Tylenol) 650 mg Q4H PRN ORAL Mild Pain (Pain Scale 1-3) 10/25/17 06:30 11/24/17 06:29 10/27/17 06:20 Acetaminophen (Tylenol) 650 mg Q4H PRN ORAL fever 10/25/17 06:30 11/24/17 06:29 Acetaminophen (Tylenol) 650 mg Q4H PRN RECTAL Mild Pain (Pain Scale 1-3) 10/25/17 06:30 11/24/17 06:29 Acetaminophen (Tylenol) 650 mg Q4H PRN RECTAL fever 10/25/17 06:30 11/24/17 06:29 Acetaminophen/ Hydrocodone Bitart ([place] 5/325) 1 tab Q4H PRN ORAL For Pain 10/25/17 06:30 11/01/17 06:29 10/26/17 19:41 Aspirin (ASA) 81 mg DAILY ORAL 10/25/17 09:00 11/24/17 08:59 10/27/17 08:40 Bisacodyl (Dulcolax) 10 mg DAILYPRN PRN RECTAL Constipation 10/25/17 06:30 11/24/17 06:29 Carisoprodol (Soma) 350 mg TIDPRN PRN ORAL BACK PAIN 10/25/17 06:30 11/24/17 06:29 Dextrose (Dextrose 50%) 25 ml STAT PRN IV Hypoglycemia 10/25/17 06:30 11/24/17 06:29 Dextrose (Dextrose 50%) 50 ml STAT PRN IV Hypoglycemia 10/25/17 06:30 11/24/17 06:29 Diphenhydramine HCl (Benadryl) 25 mg Q6H PRN ORAL Itching/Pruritis 10/25/17 06:30 11/24/17 06:29 Docusate Sodium (Colace) 100 mg EVERY 12 HOURS ORAL 10/25/17 09:00 11/24/17 08:59 10/27/17 08:41 Heparin Sodium (Porcine) (Heparin 5000 units/ml) 5,000 units EVERY 8 HOURS SUBQ 10/25/17 14:00 11/24/17 13:59 10/27/17 06:12 Hydrochlorothiazide (Hydrodiuril) 25 mg DAILY ORAL 10/25/17 09:00 11/24/17 08:59 10/27/17 08:40 Insulin Aspart (NovoLOG) BEFORE MEALS AND HS SUBQ 10/25/17 07:00 11/24/17 06:59 10/26/17 21:06 Insulin Human NPH (Humulin N) 40 units BIAC SUBQ 10/25/17 07:00 11/24/17 06:59 10/27/17 06:13 Lorazepam (Ativan) 1 mg Q6H PRN ORAL anxiety 10/26/17 02:15 11/02/17 02:14 Magnesium Hydroxide (Mom) 30 ml HSPRN PRN ORAL Constipation 10/25/17 06:30 11/24/17 06:29 Magnesium Oxide (Mag-Ox 400mg) 400 mg BID ORAL 10/26/17 13:30 11/25/17 13:29 10/27/17 08:40 Metformin HCl (Glucophage) 1,000 mg BID ORAL 10/25/17 09:00 11/24/17 08:59 10/27/17 08:41 Morphine Sulfate (Morphine Sulfate) 4 mg Q4H PRN IVP Severe Pain (Pain Scale 7-10) 10/25/17 06:30 11/01/17 06:29 Nitroglycerin (Ntg) 0.4 mg Q5M PRN SL Prn Chest Pain 10/25/17 06:30 11/24/17 06:29 Ondansetron HCl (Zofran) 4 mg Q6H PRN IVP Nausea & Vomiting 10/25/17 06:30 11/24/17 06:29 Pantoprazole (Protonix) 40 mg Q24HRS ORAL 10/25/17 08:00 11/24/17 07:59 10/27/17 08:41 Polyethylene Glycol (Miralax) 17 gm DAILYPRN PRN ORAL Constipation 10/25/17 06:30 11/24/17 06:29 10/26/17 13:07 Sitagliptin Phosphate (Januvia) 25 mg BID ORAL 10/25/17 09:00 11/24/17 08:59 10/27/17 08:40 Temazepam (Restoril) 15 mg DAILYPRN PRN ORAL Insomnia 10/25/17 06:30 11/01/17 06:29 Allergies: Coded Allergies: CODEINE (Verified Allergy, Mild, Itching, 08/26/13) SULFA (SULFONAMIDE ANTIBIOTICS) (Verified Adverse Reaction, Mild, 08/26/13) VOMIT ROS Limited/Unobtainable: No Constitutional: Reports: no symptoms HEENT: Reports: no symptoms Cardiovascular: Reports: no symptoms Respiratory: Reports: no symptoms Gastrointestinal/Abdominal: Reports: no symptoms Genitourinary: Reports: no symptoms Neurologic/Psychiatric: Reports: no symptoms Subjective 76 YO F admitted with chest pain. Cover for Int Med-Dr Trejo. Objective Last Vital Signs Date Time Temp Pulse Resp B/P (MAP) Pulse Ox O2 Delivery O2 Flow Rate FiO2 10/27/17 04:00 59 10/27/17 00:00 97.8 20 150/61 97 Room Air 97.8 Intake and Output 10/26/17 10/27/17 19:00 07:00 Intake Total 800 ml Balance 800 ml Intake Oral 800 ml # Voids 3 1 # Bowel Movements 1 Objective General Appearance: WD/WN, no apparent distress, alert EENT: PERRL/EOMI, normal ENT inspection Neck: non-tender, normal alignment, supple, normal inspection Cardiovascular: normal peripheral pulses, normal rate, regular rhythm, no gallop/murmur, no JVD Respiratory/Chest: chest wall non-tender, lungs clear, normal breath sounds, no respiratory distress, no accessory muscle use Abdomen: normal bowel sounds, non tender, soft, no organomegaly, no mass Extremities: normal range of motion, non-tender Edema: trace edema Neurologic: leaf sorter II-XII grossly normal, no motor/sensory deficits Skin: normal pigmentation, warm/dry Assessment/Plan Problem List: (1) Chest pain Assessment & Plan: Await stress test-see cardiology note. (2) Diabetes mellitus Assessment & Plan: Continue NPH and novolog insulin sliding scale. Continue metformin and januvia (3) Hypertension Assessment & Plan: Continue HCTZ Status: stable Assessment/Plan Discharge home today. F/U with Dr Treoj 1 week. Isael Hutton MD Oct 27, 2017 10:58
[2017-10-27 11:10] LABS: BASOPHILS % (AUTO) 1.2 % (0.0-2.0); EOSINOPHILS % (AUTO) 3.1 % (0.0-3.0); HEMATOCRIT 35.9 % (37.0-47.0); HEMOGLOBIN 11.2 G/DL (12.0-16.0); LYMPHOCYTES % (AUTO) 35.1 % (20.0-45.0); MEAN CORPUSCULAR VOLUME 93 FL (80-99); MONOCYTES % (AUTO) 9.5 % (1.0-10.0); NEUTROPHILS % (AUTO) 51.3 % (45.0-75.0); PLATELET COUNT 200 K/UL (150-450); RED BLOOD COUNT 3.87 M/UL (4.20-5.40); RED CELL DISTRIBUTION WIDTH 12.6 % (11.6-14.8); WHITE BLOOD COUNT 4.8 K/UL (4.8-10.8)
--- NOTE | 2017-10-27 11:56 | Pulmonology Progress Note ---
Assessment/Plan Problems: (1) ACS (acute coronary syndrome) (2) Hypertension (3) Hysterical disorder (4) Diabetes mellitus Assessment/Plan all troponin negative echo pending Cardio note reviewed and appreciated f/u cardiology recommendations prn nitro for chest pain dvt prophylaxis Subjective ROS Limited/Unobtainable: No Constitutional: Reports: no symptoms HEENT: Repors: no symptoms Allergies: Coded Allergies: CODEINE (Verified Allergy, Mild, Itching, 08/26/13) SULFA (SULFONAMIDE ANTIBIOTICS) (Verified Adverse Reaction, Mild, 08/26/13) VOMIT Objective Last 24 Hour Vital Signs Date Time Temp Pulse Resp B/P (MAP) Pulse Ox O2 Delivery O2 Flow Rate FiO2 10/27/17 08:00 97.7 63 21 150/70 99 Room Air 97.7 10/27/17 08:00 75 10/27/17 04:00 59 10/27/17 00:00 63 10/27/17 00:00 97.8 67 20 150/61 97 Room Air 97.8 10/26/17 20:00 63 10/26/17 20:00 97.7 62 20 161/69 98 Room Air 97.7 10/26/17 16:00 58 10/26/17 16:00 97.8 64 20 160/79 100 Room Air 97.8 10/26/17 12:00 97.8 68 20 168/76 100 Room Air 97.8 10/26/17 12:00 64 Intake and Output 10/26/17 10/27/17 19:00 07:00 Intake Total 800 ml Balance 800 ml Intake Oral 800 ml # Voids 3 1 # Bowel Movements 1 General Appearance: WD/WN HEENT: normocephalic, atraumatic Respiratory/Chest: chest wall non-tender, lungs clear Breasts: no masses Cardiovascular: normal peripheral pulses, normal rate Abdomen: normal bowel sounds, soft, non tender Genitourinary: normal external genitalia Extremities: no cyanosis Neurologic/Psychiatric: district gauger II-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 grossly normal Laboratory Tests 10/27/17 10:45: White Blood Count 4.8, Red Blood Count 3.87L, Hemoglobin 11.2L, Hematocrit 35.9L , Mean Corpuscular Volume 93, Mean Corpuscular Hemoglobin 29.0, Mean Corpuscular Hemoglobin Concent 31.3L, Red Cell Distribution Width 12.6, Platelet Count 200, Mean Platelet Volume 6.9, Neutrophils (%) (Auto) 51.3, Lymphocytes (%) (Auto) 35.1, Monocytes (%) (Auto) 9.5, Eosinophils (%) (Auto) 3.1H, Basophils (%) (Auto) 1.2, Sodium Level [Pending], Potassium Level [Pending ], Chloride Level [Pending], Carbon Dioxide Level [Pending], Blood Urea Nitrogen [Pending], Creatinine [Pending], Estimat Glomerular Filtration Rate [ Pending], Glucose Level [Pending], Calcium Level [Pending], Troponin I [Pending] Current Medications Medications (Trade) Dose Ordered Sig/Hever Route PRN Reason Start Time Stop Time Status Last Admin Dose Admin Acetaminophen (Tylenol) 650 mg Q4H PRN ORAL Mild Pain (Pain Scale 1-3) 10/25/17 06:30 11/24/17 06:29 10/27/17 06:20 Acetaminophen (Tylenol) 650 mg Q4H PRN ORAL fever 10/25/17 06:30 11/24/17 06:29 Acetaminophen (Tylenol) 650 mg Q4H PRN RECTAL Mild Pain (Pain Scale 1-3) 10/25/17 06:30 11/24/17 06:29 Acetaminophen (Tylenol) 650 mg Q4H PRN RECTAL fever 10/25/17 06:30 11/24/17 06:29 Acetaminophen/ Hydrocodone Bitart ([place] 5/325) 1 tab Q4H PRN ORAL For Pain 10/25/17 06:30 11/01/17 06:29 10/26/17 19:41 Aspirin (ASA) 81 mg DAILY ORAL 10/25/17 09:00 11/24/17 08:59 10/27/17 08:40 Bisacodyl (Dulcolax) 10 mg DAILYPRN PRN RECTAL Constipation 10/25/17 06:30 11/24/17 06:29 Carisoprodol (Soma) 350 mg TIDPRN PRN ORAL BACK PAIN 10/25/17 06:30 11/24/17 06:29 Dextrose (Dextrose 50%) 25 ml STAT PRN IV Hypoglycemia 10/25/17 06:30 11/24/17 06:29 Dextrose (Dextrose 50%) 50 ml STAT PRN IV Hypoglycemia 10/25/17 06:30 11/24/17 06:29 Diphenhydramine HCl (Benadryl) 25 mg Q6H PRN ORAL Itching/Pruritis 10/25/17 06:30 11/24/17 06:29 Docusate Sodium (Colace) 100 mg EVERY 12 HOURS ORAL 10/25/17 09:00 11/24/17 08:59 10/27/17 08:41 Heparin Sodium (Porcine) (Heparin 5000 units/ml) 5,000 units EVERY 8 HOURS SUBQ 10/25/17 14:00 11/24/17 13:59 10/27/17 06:12 Hydrochlorothiazide (Hydrodiuril) 25 mg DAILY ORAL 10/25/17 09:00 11/24/17 08:59 10/27/17 08:40 Insulin Aspart (NovoLOG) BEFORE MEALS AND HS SUBQ 10/25/17 07:00 11/24/17 06:59 10/26/17 21:06 Insulin Human NPH (Humulin N) 40 units BIAC SUBQ 10/25/17 07:00 11/24/17 06:59 10/27/17 06:13 Lorazepam (Ativan) 1 mg Q6H PRN ORAL anxiety 10/26/17 02:15 11/02/17 02:14 Magnesium Hydroxide (Mom) 30 ml HSPRN PRN ORAL Constipation 10/25/17 06:30 11/24/17 06:29 Magnesium Oxide (Mag-Ox 400mg) 400 mg BID ORAL 10/26/17 13:30 11/25/17 13:29 10/27/17 08:40 Metformin HCl (Glucophage) 1,000 mg BID ORAL 10/25/17 09:00 11/24/17 08:59 10/27/17 08:41 Morphine Sulfate (Morphine Sulfate) 4 mg Q4H PRN IVP Severe Pain (Pain Scale 7-10) 10/25/17 06:30 11/01/17 06:29 Nitroglycerin (Ntg) 0.4 mg Q5M PRN SL Prn Chest Pain 10/25/17 06:30 11/24/17 06:29 Ondansetron HCl (Zofran) 4 mg Q6H PRN IVP Nausea & Vomiting 10/25/17 06:30 11/24/17 06:29 Pantoprazole (Protonix) 40 mg Q24HRS ORAL 10/25/17 08:00 11/24/17 07:59 10/27/17 08:41 Polyethylene Glycol (Miralax) 17 gm DAILYPRN PRN ORAL Constipation 10/25/17 06:30 11/24/17 06:29 10/26/17 13:07 Sitagliptin Phosphate (Januvia) 25 mg BID ORAL 10/25/17 09:00 11/24/17 08:59 10/27/17 08:40 Temazepam (Restoril) 15 mg DAILYPRN PRN ORAL Insomnia 10/25/17 06:30 11/01/17 06:29 Anna Mckeon MD Oct 27, 2017 11:56
[2017-10-27 12:00] VITALS: BP 164/69
[2017-10-27 12:09] LABS: ANION GAP 6 mmol/L (5-15); BLOOD UREA NITROGEN 19 mg/dL (7-18); CALCIUM 8.9 MG/DL (8.5-10.1); CARBON DIOXIDE 29 MMOL/L (21-32); CHLORIDE 105 MMOL/L (98-107); POTASSIUM 3.9 MMOL/L (3.5-5.1); SODIUM 140 MMOL/L (136-145)
--- NOTE | 2017-10-27 14:30 | Cardiac Electrophysiology PN ---
Assessment/Plan Assessment/Plan 1. Chest pain. Ruled out for [place]. Stress test as out patient - low MICK score 2. HTN 3. Hyperlipidemia 4. NIDDM On Metformin DW RN Subjective Subjective No CP or SOB. Refused stress test. Wants to have stress test as out patient Objective Last 24 Hour Vital Signs Date Time Temp Pulse Resp B/P (MAP) Pulse Ox O2 Delivery O2 Flow Rate FiO2 10/27/17 12:00 72 10/27/17 12:00 98.0 62 22 164/69 97 Room Air 98.0 10/27/17 08:00 75 10/27/17 08:00 97.7 63 21 150/70 99 Room Air 97.7 10/27/17 04:00 59 10/27/17 00:00 63 10/27/17 00:00 97.8 67 20 150/61 97 Room Air 97.8 10/26/17 20:00 63 10/26/17 20:00 97.7 62 20 161/69 98 Room Air 97.7 10/26/17 16:00 58 10/26/17 16:00 97.8 64 20 160/79 100 Room Air 97.8 Intake and Output 10/26/17 10/27/17 19:00 07:00 Intake Total 800 ml Balance 800 ml Intake Oral 800 ml # Voids 3 1 # Bowel Movements 1 Laboratory Tests Test 10/27/17 10:45 White Blood Count 4.8 K/UL (4.8-10.8) Red Blood Count 3.87 M/UL (4.20-5.40) L Hemoglobin 11.2 G/DL (12.0-16.0) L Hematocrit 35.9 % (37.0-47.0) L Mean Corpuscular Volume 93 FL (80-99) Mean Corpuscular Hemoglobin 29.0 PG (27.0-31.0) Mean Corpuscular Hemoglobin Concent 31.3 G/DL (32.0-36.0) L Red Cell Distribution Width 12.6 % (11.6-14.8) Platelet Count 200 K/UL (150-450) Mean Platelet Volume 6.9 FL (6.5-10.1) Neutrophils (%) (Auto) 51.3 % (45.0-75.0) Lymphocytes (%) (Auto) 35.1 % (20.0-45.0) Monocytes (%) (Auto) 9.5 % (1.0-10.0) Eosinophils (%) (Auto) 3.1 % (0.0-3.0) H Basophils (%) (Auto) 1.2 % (0.0-2.0) Sodium Level 140 MMOL/L (136-145) Potassium Level 3.9 MMOL/L (3.5-5.1) Chloride Level 105 MMOL/L (98-107) Carbon Dioxide Level 29 MMOL/L (21-32) Anion Gap 6 mmol/L (5-15) Blood Urea Nitrogen 19 mg/dL (7-18) H Creatinine 1.0 MG/DL (0.55-1.30) Estimat Glomerular Filtration Rate mL/min (>60) Glucose Level 60 MG/DL (74-106) #L Calcium Level 8.9 MG/DL (8.5-10.1) Troponin I 0.036 ng/mL (0.000-0.056) Objective HEENT: No JVD LUNGS: Clear CVS: RRR ABDOMEN: Soft EXT: No edema Gumaro Cox MD Oct 27, 2017 14:30
--- NOTE | 2017-10-27 16:56 | General Progress Note ---
Assessment/Plan Assessment/Plan mdd anxiety d/o ativan prn the pt is reluctant to take antidepressant Subjective Date patient seen: Oct 27, 2017 Neurologic/Psychiatric: Reports: anxiety, depressed, emotional problems Allergies: Coded Allergies: CODEINE (Verified Allergy, Mild, Itching, 08/26/13) SULFA (SULFONAMIDE ANTIBIOTICS) (Verified Adverse Reaction, Mild, 08/26/13) VOMIT Objective Last 24 Hour Vital Signs Date Time Temp Pulse Resp B/P (MAP) Pulse Ox O2 Delivery O2 Flow Rate FiO2 10/27/17 12:00 72 10/27/17 12:00 98.0 62 22 164/69 97 Room Air 98.0 10/27/17 08:00 75 10/27/17 08:00 97.7 63 21 150/70 99 Room Air 97.7 10/27/17 04:00 59 10/27/17 00:00 63 10/27/17 00:00 97.8 67 20 150/61 97 Room Air 97.8 10/26/17 20:00 63 10/26/17 20:00 97.7 62 20 161/69 98 Room Air 97.7 Intake and Output 10/26/17 10/27/17 19:00 07:00 Intake Total 800 ml Balance 800 ml Intake Oral 800 ml # Voids 3 1 # Bowel Movements 1 Laboratory Tests 10/27/17 10:45: White Blood Count 4.8, Red Blood Count 3.87L, Hemoglobin 11.2L, Hematocrit 35.9L , Mean Corpuscular Volume 93, Mean Corpuscular Hemoglobin 29.0, Mean Corpuscular Hemoglobin Concent 31.3L, Red Cell Distribution Width 12.6, Platelet Count 200, Mean Platelet Volume 6.9, Neutrophils (%) (Auto) 51.3, Lymphocytes (%) (Auto) 35.1, Monocytes (%) (Auto) 9.5, Eosinophils (%) (Auto) 3.1H, Basophils (%) (Auto) 1.2, Sodium Level 140, Potassium Level 3.9, Chloride Level 105, Carbon Dioxide Level 29, Anion Gap 6, Blood Urea Nitrogen 19H, Creatinine 1.0, Estimat Glomerular Filtration Rate , Glucose Level 60#L, Calcium Level 8.9, Troponin I 0.036 Height (Feet): 5 Height (Inches): 8.00 Weight (Pounds): 200 General Appearance: no apparent distress, alert Neurologic: oriented x 3, responsive, depressed affect Antonino Goldman M.D. Oct 27, 2017 16:56
--- NOTE | 2017-10-27 16:57 | Geriatric Progress Note ---
Assessment/Plan Assessment/Plan mdd anxiety d/o ativan prn the pt is reluctant to take antidepressant Subjective Interval Events 10/26/17 Mood/Memory: Reports: see HPI, prior hx, anxiety, depressed feelings, emotional problems Geriatric Geriatric Last 24 Hour Vital Signs Date Time Temp Pulse Resp B/P (MAP) Pulse Ox O2 Delivery O2 Flow Rate FiO2 10/27/17 12:00 72 10/27/17 12:00 98.0 62 22 164/69 97 Room Air 98.0 10/27/17 08:00 75 10/27/17 08:00 97.7 63 21 150/70 99 Room Air 97.7 10/27/17 04:00 59 10/27/17 00:00 63 10/27/17 00:00 97.8 67 20 150/61 97 Room Air 97.8 10/26/17 20:00 63 10/26/17 20:00 97.7 62 20 161/69 98 Room Air 97.7 Intake and Output 10/26/17 10/27/17 19:00 07:00 Intake Total 800 ml Balance 800 ml Intake Oral 800 ml # Voids 3 1 # Bowel Movements 1 Laboratory Tests Test 10/27/17 10:45 White Blood Count 4.8 K/UL (4.8-10.8) Red Blood Count 3.87 M/UL (4.20-5.40) L Hemoglobin 11.2 G/DL (12.0-16.0) L Hematocrit 35.9 % (37.0-47.0) L Mean Corpuscular Volume 93 FL (80-99) Mean Corpuscular Hemoglobin 29.0 PG (27.0-31.0) Mean Corpuscular Hemoglobin Concent 31.3 G/DL (32.0-36.0) L Red Cell Distribution Width 12.6 % (11.6-14.8) Platelet Count 200 K/UL (150-450) Mean Platelet Volume 6.9 FL (6.5-10.1) Neutrophils (%) (Auto) 51.3 % (45.0-75.0) Lymphocytes (%) (Auto) 35.1 % (20.0-45.0) Monocytes (%) (Auto) 9.5 % (1.0-10.0) Eosinophils (%) (Auto) 3.1 % (0.0-3.0) H Basophils (%) (Auto) 1.2 % (0.0-2.0) Sodium Level 140 MMOL/L (136-145) Potassium Level 3.9 MMOL/L (3.5-5.1) Chloride Level 105 MMOL/L (98-107) Carbon Dioxide Level 29 MMOL/L (21-32) Anion Gap 6 mmol/L (5-15) Blood Urea Nitrogen 19 mg/dL (7-18) H Creatinine 1.0 MG/DL (0.55-1.30) Estimat Glomerular Filtration Rate mL/min (>60) Glucose Level 60 MG/DL (74-106) #L Calcium Level 8.9 MG/DL (8.5-10.1) Troponin I 0.036 ng/mL (0.000-0.056) Height (Feet): 5 Height (Inches): 8.00 Weight (Pounds): 200 General Appearance: well appearing, well dressed, alert Neurologic: oriented x3, responsive Antonino Goldman M.D. Oct 27, 2017 16:57
--- NOTE | 2017-10-28 13:38 | Discharge Summary ---
Discharge Summary Discharge Summary _ DATE OF ADMISSION: 10/25/2017 DATE OF DISCHARGE: 10/27/2017 REASON FOR ADMISSION: 77 years old female with past medical history significant for hypertension , diabetes, anxiety ,congestive heart failure ,presented to emergency department with complaint of chest pain. Patient had a strong argument with her granddaughter , which involved lots of cursing and yelling. The onset of chest pain occurred right after the incident. She developed chest pain and pressure . Patient called paramedics. Patient described pain as 10 out of 10, throbbing , radiating to her head ,with no focal deficit . She admitted to shortness of breath, but no exertional component. No pain in neck or the arm, no diaphoresis. She was given by paramedics aspirin and nitroglycerin spray. Pain intensity decreased. Patient reported recent stress test 3 years ago which was negative. Upon evaluation in emergency department, patient was tachycardic, blood pressure 157/68, pulse oximetry was stable on room air. Laboratory workup revealed glucose 444, troponin was negative. EKG revealed normal sinus rhythm , no acute ischemic changes . Chest x-ray showed nonspecific bilateral opacities. Patient had no evidence of acute coronary syndrome. Chest pain was likely stress-related. However, patient was admitted for further workup given elevated blood sugar and multiply risks factors. Patient admitted to telemetry floor with diagnosis of chest pain ,hyperglycemia due to the type 2 diabetes mellitus, acute stress reaction. CONSULTANTS: wellness ambassador Dr. Cox pulmonary Dr. Mckeon psychiatrist [facility]RSE: Patient admitted to telemetry floor. Serial troponin 3 were negative. Telemetry demonstrated sinus rhythm, no acute ischemic changes. Initial EKG showed no acute ischemic changes as well. Patient was ruled out for acute ID. Echocardiogram revealed preserved ejection fraction. Patient started on aspirin. Nitroglycerin provided as needed for chest pain control. Blood pressure was controlled with current antihypertensive regimen.. Statin therapy was continued. Chest pain resolved likely due to anxiety and was noncardiac as per cardiology conclusion. Signal Processing Engineer recommended inducible stress test to evaluate for ischemia, given her risk factor such as diabetes, hypertension, hyperlipidemia However stress test could be done as an outpatient , since the patient has low MICK score. Blood sugar was managed with sliding scale insulin and metformin and remained stable. Supplemental oxygen provided as needed to keep pulse oximetry above 92% . Pulse oximetry was stable on room air. DVT and GI prophylaxis provided. Bowel regimen instituted. Electrolytes corrected as needed. Psychiatrist seen and evaluated the patient, and diagnosed her with major depressive disorder and anxiety disorder. Supportive therapy provided, however patient was reluctant to start antidepressive therapy. Patient was cleared for discharge. FINAL DIAGNOSES: Noncardiac chest pain Hyperglycemia secondary to diabetes mellitus Possible acute stress reaction Hypertension Hyperlipidemia Major depression disorder Anxiety disorder DISCHARGE MEDICATIONS: See Medication Reconciliation list. DISCHARGE INSTRUCTIONS: Patient was discharged home. Follow up with primary care provider in one week. Stress test as outpatient given multiple risk factors. Consider starting antidepressive therapy. I have been assigned to dictate discharge summary for this account. I was not involved in the patient's management. Tami Ortega NP Oct 28, 2017 13:38
== END 2017-10-27 15:38 | disposition home or self-care (01) | DRG 313 ==
LOC: EDBD → EMR 23:00 → EDBEDREQ 10-25 01:20 → 2E 10-25 01:22 → MERGE 10-25 01:22 → EMR 10-25 02:20
DX: R07.89 Other chest pain (principal); I10 Essential (primary) hypertension; F32.9 Major depressive disorder, single episode, unspecified; F41.8 Other specified anxiety disorders; R00.0 Tachycardia, unspecified; K21.9 Gastro-esophageal reflux disease without esophagitis; M51.37 Other intervertebral disc degeneration, lumbosacral region; E78.5 Hyperlipidemia, unspecified; Z79.84 Long term (current) use of oral hypoglycemic drugs; Z90.49 Acquired absence of other specified parts of digestive tract; E11.65 Type 2 diabetes mellitus with hyperglycemia; F41.9 Anxiety disorder, unspecified; F43.0 Acute stress reaction; Z79.4 Long term (current) use of insulin
CPT/HCPCS: 36415; 71045; 80048; 80053; 82465; 82550; 82553; 82962; 83735; 84100; 84484; 85025; 85610; 85730; 93005; 93306; 99285; J1815

== ENCOUNTER 2018-11-23 15:55 | Emergency (ER) | payer MEDICARE, OTHER ==
[~2018-11-23] VITALS: Ht 172.7 cm; Wt 90.7 kg
[~2018-11-23 15:55] MED LIST changes: +HUMULIN 70100 UNIT/2 SUBQ; +JANUVIA25 MG ORAL; +NORCO 5-325 TA1 EACH ORAL; +PREVACID15 MG ORAL; +SOMA250 MG PO
[2018-11-23] MEDS ORDERED: UNOBMED (16:09)
[2018-11-23 16:10] VITALS: BP 189/94
[2018-11-23] MEDS ORDERED: Morphine Sulfate 4mg/ml Inj (IV USE ONLY) IVP ONE (16:30)
--- NOTE | 2018-11-23 17:14 | Diagnostic Imaging Report ---
Indication: Ankle pain, status post fall Technique: 3 views of the right ankle Comparison: 10/18/2011 Findings: There is soft tissue swelling overlying the lateral malleolus. No acute fractures. No dislocations. The joint spaces are preserved. Impression: No acute bony trauma. Soft tissue swelling
--- NOTE | 2018-11-23 17:29 | Diagnostic Imaging Report ---
Indication: Pain, status post fall Technique: 3 views left hand Comparison: none Findings: No acute fractures. No dislocations. The joint spaces are preserved. Impression: Negative
--- NOTE | 2018-11-23 17:30 | Diagnostic Imaging Report ---
Indications: Pain, status post fall Technique: Two views of the right femur Comparison: None Findings: No acute fractures. No dislocations. No radiopaque foreign body. Joint spaces are preserved. Impression: Negative
[2018-11-23 17:33] LABS: ANION GAP 12 mmol/L (5-15); BLOOD UREA NITROGEN 13 mg/dL (7-18); CALCIUM 9.3 MG/DL (8.5-10.1); CARBON DIOXIDE 27 MMOL/L (21-32); CHLORIDE 105 MMOL/L (98-107); CREATININE 1.1 MG/DL (0.55-1.30); POTASSIUM 3.6 MMOL/L (3.5-5.1); SODIUM 144 MMOL/L (136-145)
[2018-11-23 17:34] LABS: INR 0.9 (0.9-1.1)
[2018-11-23 17:37] LABS: ALANINE AMINOTRANSFERASE 28 U/L (12-78); ALBUMIN 3.2 G/DL (3.4-5.0); ALBUMIN/GLOBULIN RATIO 0.8 (1.0-2.7); ALKALINE PHOSPHATASE 92 U/L (46-116); ASPARTATE AMINO TRANSFERASE 24 U/L (15-37); BASOPHILS % (AUTO) 1.3 % (0.0-2.0); BILIRUBIN,TOTAL 0.2 MG/DL (0.2-1.0); HEMATOCRIT 35.4 % (37.0-47.0); HEMOGLOBIN 11.7 G/DL (12.0-16.0); MEAN CORPUSCULAR VOLUME 92 FL (80-99); MONOCYTES % (AUTO) 7.5 % (1.0-10.0); NEUTROPHILS % (AUTO) 50.3 % (45.0-75.0); PLATELET COUNT 279 K/UL (150-450); RED BLOOD COUNT 3.84 M/UL (4.20-5.40); WHITE BLOOD COUNT 4.7 K/UL (4.8-10.8)
--- NOTE | 2018-11-23 18:07 | Emergency Room Report ---
History of Present Illness General Chief Complaint: Multiple Trauma/Fall Source: Patient Present Illness HPI She is a 78-year-old female who presented after increased right-sided pain after fall. Patient reportedly had fallen from standing. She reports having been stepping downward and subsequently inverting her ankle. She reports of increased pain to the ankle as well as to the right hip. She had prior history of chronic back pain. She is currently in pain management. She denies any loss of consciousness. She denies hitting her head. She had not been having any significant change in neck pain. She had been having some increased difficulty with ambulation since the injury. Patient was noted to have prior history of hypertension as well as diabetes. She is followed by Dr. Emre Trejo Allergies: Coded Allergies: CODEINE (Verified Allergy, Mild, Itching, 08/26/13) SULFA (SULFONAMIDE ANTIBIOTICS) (Verified Adverse Reaction, Mild, 08/26/13) VOMIT Patient History Past Medical History: see triage record Now: No Reviewed Nursing Documentation: PMH: Agreed; PSxH: Agreed Nursing Documentation-PMH Past Medical History: No History, Except For Hx Cardiac Problems: Yes Hx Hypertension: Yes Hx Diabetes: Yes Hx Cancer: No Hx Gastrointestinal Problems: Yes - hernia Hx Neurological Problems: Yes - Frequent Falls at Home, degenaritve disc disease Hx Memory Loss: Yes Hx Dizziness: Yes Hx Headaches: Yes Hx Weakness: Yes Review of Systems All Other Systems: negative except mentioned in HPI Physical Exam Vital Signs Date Time Temp Pulse Resp B/P (MAP) Pulse Ox O2 Delivery O2 Flow Rate FiO2 11/23/18 16:04 97.7 74 15 189/94 (125) 99 Room Air Sp02 EP Interpretation: reviewed, normal General Appearance: normal inspection, well appearing, no apparent distress, alert, GCS 15, non-toxic Head: atraumatic ENT: normal ENT inspection, hearing grossly normal, normal voice Neck: normal inspection, full range of motion, supple, no bony tend Respiratory: normal inspection, lungs clear, normal breath sounds, no respiratory distress, no retraction, no wheezing Cardiovascular #1: regular rate, rhythm, no edema Gastrointestinal: normal inspection, normal bowel sounds, non tender, soft, no guarding, no hernia Genitourinary: no CVA tenderness Musculoskeletal: normal inspection, back normal, normal range of motion Neurologic: normal inspection, alert, oriented x3, responsive, tariff clerk III-XII nml as tested, speech normal Psychiatric: normal inspection, judgement/insight normal, mood/affect normal Medical Decision Making Diagnostic Impression: Primary Impression: Fall Additional Impressions: Ankle sprain Contusion of right leg ER Course Patient presented after a fall. Differential diagnosis include was not limited to fracture, contusion among others. Because of complexity of patient's case laboratory testing and imaging studies were ordered. Patient was noted to have prior history of chronic pain and is currently in pain management. Patient noted to have unremarkable laboratory testing. Imaging showed no evidence of acute fracture. Patient was noted to be ambulatory with a walker. Patient was discharged home with family members. She did not appear to have any evidence of altered mental status and states she did not hit her head. Patient is advised to return if she had any worsening condition or other concerns. Labs Test 11/23/18 16:30 White Blood Count 4.7 K/UL (4.8-10.8) Red Blood Count 3.84 M/UL (4.20-5.40) Hemoglobin 11.7 G/DL (12.0-16.0) Hematocrit 35.4 % (37.0-47.0) Mean Corpuscular Volume 92 FL (80-99) Mean Corpuscular Hemoglobin 30.5 PG (27.0-31.0) Mean Corpuscular Hemoglobin Concent 33.1 G/DL (32.0-36.0) Red Cell Distribution Width 12.0 % (11.6-14.8) Platelet Count 279 K/UL (150-450) Mean Platelet Volume 5.6 FL (6.5-10.1) Neutrophils (%) (Auto) 50.3 % (45.0-75.0) Lymphocytes (%) (Auto) 39.0 % (20.0-45.0) Monocytes (%) (Auto) 7.5 % (1.0-10.0) Eosinophils (%) (Auto) 2.0 % (0.0-3.0) Basophils (%) (Auto) 1.3 % (0.0-2.0) Prothrombin Time 10.1 SEC (9.30-11.50) Prothromb Time International Ratio 0.9 (0.9-1.1) Activated Partial Thromboplast Time 26 SEC (23-33) Sodium Level 144 MMOL/L (136-145) Potassium Level 3.6 MMOL/L (3.5-5.1) Chloride Level 105 MMOL/L (98-107) Carbon Dioxide Level 27 MMOL/L (21-32) Anion Gap 12 mmol/L (5-15) Blood Urea Nitrogen 13 mg/dL (7-18) Creatinine 1.1 MG/DL (0.55-1.30) Estimat Glomerular Filtration Rate mL/min (>60) Glucose Level 62 MG/DL (74-106) Calcium Level 9.3 MG/DL (8.5-10.1) Total Bilirubin 0.2 MG/DL (0.2-1.0) Aspartate Amino Transf (AST/SGOT) 24 U/L (15-37) Alanine Aminotransferase (ALT/SGPT) 28 U/L (12-78) Alkaline Phosphatase 92 U/L (46-116) Total Protein 7.3 G/DL (6.4-8.2) Albumin 3.2 G/DL (3.4-5.0) Globulin 4.1 g/dL Albumin/Globulin Ratio 0.8 (1.0-2.7) Last Vital Signs Date Time Temp Pulse Resp B/P (MAP) Pulse Ox O2 Delivery O2 Flow Rate FiO2 11/23/18 17:07 97.7 11/23/18 16:10 76 16 Room Air 11/23/18 16:10 189/94 99 Status: improved Disposition: HOME, SELF-CARE Condition: Stable Patient Instructions: Ankle Sprain, [id number] Anthony Scott MD Nov 23, 2018 18:07
[2018-11-23 18:13] VITALS: BP 162/86
--- NOTE | 2018-11-24 10:01 | Diagnostic Imaging Report ---
Indication: Hip pain Technique: continuous helical imaging in the transaxial plane was performed from the iliac crests to the pubic symphysis with attention to the right hip. Coronal 2-D reformatted images were also generated. Study obtained in a Siemens Sensation [address] total DLP: 1114.5 mGycm CTD/vol: 16.85,21.51 mGy Comparison: None Findings: There is no evidence of an acute fracture or significant malalignment identified on this examination. There is narrowing of the right hip joint. There is vacuum phenomena and the of endplate osteophytes within the visualized part of the lower lumbar spine. Vacuum phenomenon and osteophytes noted in the sacroiliac joints as well. There is transitional lumbar anatomy at the lumbosacral junction. Uterus is absent. There is air in the urinary bladder which may be iatrogenic. Correlate clinically. Arterial vascular calcifications are present. IMPRESSION: No acute injury identified. Multiple other incidental findings as described above. [facility] has communicated the preliminary results to the Emergency Department. Their findings are largely concordant with this report. The CT scanner at [facility] is accredited by the [employer] and the scans are performed using dose optimization techniques as appropriate to a performed exam including Automatic Exposure control.
== END 2018-11-23 18:15 | disposition home or self-care (01) ==
LOC: EMR 16:35
DX: S93.401A Sprain of unspecified ligament of right ankle, initial encounter (principal); S80.11XA Contusion of right lower leg, initial encounter; W19.XXXA Unspecified fall, initial encounter; Y92.9 Unspecified place or not applicable; Z91.81 History of falling; I10 Essential (primary) hypertension; E11.9 Type 2 diabetes mellitus without complications; Z88.2 Allergy status to sulfonamides; Z88.6 Allergy status to analgesic agent
CPT/HCPCS: 36415; 73130; 73552; 73610; 73700; 80053; 82962; 85025; 85610; 85730; 96374; 96375; 99284; J2270; J2405

== ENCOUNTER 2019-06-20 12:39 | Inpatient (IN) | payer MEDICARE, OTHER ==
[~2019-06-20] VITALS: Ht 172.7 cm; Wt 85.7 kg
[~2019-06-20 12:39] MED LIST changes: +HYDRALAZINE HCL25 M1 ORAL; +IBUPROFEN600 MG ORAL; +NOVOLOG100 UNITS1 SUBQ
--- NOTE | 2019-06-20 13:00 | NUR ---
ED Nurse Note: PT brought by ambulance with CP intermittently since last night, no SOB noted; A/O x 3; PT complains of headache, will continue to monitor PT.
--- NOTE | 2019-06-20 13:12 | Emergency Room Report ---
History of Present Illness General Chief Complaint: Chest Pain Source: Patient Present Illness HPI Patient presents with complaints of left upper chest pain Reports that last night she was having difficulty sleeping secondary to the pain off and on Denies any shortness of breath denies any pleurisy Pain is a heaviness 5 out of 10 denies any back pain denies any recent trauma patient reports that she had a stress test over 5 years ago Which was normal Allergies: Coded Allergies: CODEINE (Verified Allergy, Mild, Itching, 08/26/13) SULFA (SULFONAMIDE ANTIBIOTICS) (Verified Adverse Reaction, Mild, 08/26/13) VOMIT Patient History Past Medical History: see triage record Reviewed Nursing Documentation: PMH: Agreed; PSxH: Agreed Nursing Documentation-PMH Hx Cardiac Problems: Yes - CHF Hx Hypertension: Yes Hx Diabetes: Yes Hx Cancer: No Hx Gastrointestinal Problems: No Hx Neurological Problems: Yes Hx Memory Loss: Yes Hx Dizziness: Yes Hx Syncope: Yes Hx Headaches: Yes Hx Weakness: Yes Hx Neurologic Surgery: No Hx Brain Shunt: No Review of Systems All Other Systems: negative except mentioned in HPI Physical Exam Vital Signs Date Time Temp Pulse Resp B/P (MAP) Pulse Ox O2 Delivery O2 Flow Rate FiO2 06/20/19 12:37 98.1 82 18 196/81 (119) 98 Room Air Sp02 EP Interpretation: reviewed, normal General Appearance: well appearing, no apparent distress Head: normocephalic, atraumatic Eyes: bilateral eye PERRL, bilateral eye EOMI ENT: hearing grossly normal, normal pharynx, TMs + canals normal, uvula midline Neck: full range of motion, supple, no meningismus, no bony tend Respiratory: lungs clear, normal breath sounds, no rhonchi, no respiratory distress, no retraction, no accessory muscle use Cardiovascular #1: normal peripheral pulses, regular rate, rhythm, no edema, no gallop, no JVD, no murmur Gastrointestinal: normal bowel sounds, non tender, soft, no mass, no organomegaly, non-distended, no guarding, no hernia, no pulsatile mass, no rebound Genitourinary: no CVA tenderness Musculoskeletal: normal inspection Neurologic: motor strength/tone normal, lead section supervisor III-XII nml as tested, oriented x3 , sensory intact, responsive Psychiatric: mood/affect normal Skin: no rash Lymphatic: normal inspection, no adenopathy Medical Decision Making Diagnostic Impression: Primary Impression: ACS (acute coronary syndrome) ER Course Patient is a fairly complex patient with multiple differential to consideration including but not limited to cardiac cardiopulmonary and vascular emergencies Patient's glucose level is elevated otherwise cardiac enzymes negative Chest x-ray is normal No obvious ST elevations on EKG and patient is admitted for further inpatient care Labs Test 06/21/19 12:45 06/22/19 06:11 06/23/19 06:37 White Blood Count 3.7 K/UL (4.8-10.8) 3.9 K/UL (4.8-10.8) 3.4 K/UL (4.8-10.8) Red Blood Count 3.67 M/UL (4.20-5.40) 3.54 M/UL (4.20-5.40) 3.86 M/UL (4.20-5.40) Hemoglobin 11.6 G/DL (12.0-16.0) 11.0 G/DL (12.0-16.0) 12.0 G/DL (12.0-16.0) Hematocrit 34.1 % (37.0-47.0) 33.0 % (37.0-47.0) 35.8 % (37.0-47.0) Mean Corpuscular Volume 93 FL (80-99) 93 FL (80-99) 93 FL (80-99) Mean Corpuscular Hemoglobin 31.6 PG (27.0-31.0) 31.2 PG (27.0-31.0) 31.2 PG (27.0-31.0) Mean Corpuscular Hemoglobin Concent 34.0 G/DL (32.0-36.0) 33.5 G/DL (32.0-36.0) 33.6 G/DL (32.0-36.0) Red Cell Distribution Width 11.8 % (11.6-14.8) 12.2 % (11.6-14.8) 12.2 % (11.6-14.8) Platelet Count 185 K/UL (150-450) 208 K/UL (150-450) 222 K/UL (150-450) Mean Platelet Volume 6.4 FL (6.5-10.1) 6.1 FL (6.5-10.1) 6.3 FL (6.5-10.1) Neutrophils (%) (Auto) 46.3 % (45.0-75.0) 56.2 % (45.0-75.0) % (45.0-75.0) Lymphocytes (%) (Auto) 42.2 % (20.0-45.0) 26.9 % (20.0-45.0) % (20.0-45.0) Monocytes (%) (Auto) 5.6 % (1.0-10.0) 11.1 % (1.0-10.0) % (1.0-10.0) Eosinophils (%) (Auto) 4.2 % (0.0-3.0) 4.3 % (0.0-3.0) % (0.0-3.0) Basophils (%) (Auto) 1.6 % (0.0-2.0) 1.6 % (0.0-2.0) % (0.0-2.0) Sodium Level 135 MMOL/L (136-145) 138 MMOL/L (136-145) 137 MMOL/L (136-145) Potassium Level 4.4 MMOL/L (3.5-5.1) 4.5 MMOL/L (3.5-5.1) 4.4 MMOL/L (3.5-5.1) Chloride Level 104 MMOL/L (98-107) 104 MMOL/L (98-107) 101 MMOL/L (98-107) Carbon Dioxide Level 26 MMOL/L (21-32) 26 MMOL/L (21-32) 28 MMOL/L (21-32) Anion Gap 5 mmol/L (5-15) 8 mmol/L (5-15) 8 mmol/L (5-15) Blood Urea Nitrogen 13 mg/dL (7-18) 16 mg/dL (7-18) 20 mg/dL (7-18) Creatinine 1.0 MG/DL (0.55-1.30) 1.2 MG/DL (0.55-1.30) 1.2 MG/DL (0.55-1.30) Estimat Glomerular Filtration Rate mL/min (>60) mL/min (>60) mL/min (>60) Glucose Level 261 MG/DL (74-106) 357 MG/DL (74-106) 318 MG/DL (74-106) Hemoglobin A1c 8.9 % (4.3-6.0) Calcium Level 8.2 MG/DL (8.5-10.1) 8.4 MG/DL (8.5-10.1) 8.7 MG/DL (8.5-10.1) Phosphorus Level 3.2 MG/DL (2.5-4.9) 3.5 MG/DL (2.5-4.9) Magnesium Level 1.9 MG/DL (1.8-2.4) 1.8 MG/DL (1.8-2.4) Total Bilirubin 0.3 MG/DL (0.2-1.0) 0.3 MG/DL (0.2-1.0) Aspartate Amino Transf (AST/SGOT) 34 U/L (15-37) 18 U/L (15-37) Alanine Aminotransferase (ALT/SGPT) 32 U/L (12-78) 29 U/L (12-78) Alkaline Phosphatase 104 U/L (46-116) 100 U/L (46-116) Troponin I 0.039 ng/mL (0.000-0.056) 0.038 ng/mL (0.000-0.056) Total Protein 6.7 G/DL (6.4-8.2) 6.7 G/DL (6.4-8.2) Albumin 2.7 G/DL (3.4-5.0) 2.8 G/DL (3.4-5.0) Globulin 4.0 g/dL 3.9 g/dL Albumin/Globulin Ratio 0.7 (1.0-2.7) 0.7 (1.0-2.7) Triglycerides Level 74 MG/DL (30-150) Cholesterol Level 139 MG/DL (< 200) LDL Cholesterol 60 mg/dL (<100) HDL Cholesterol 58 MG/DL (40-60) Cholesterol/HDL Ratio 2.4 (3.3-4.4) Erythrocyte Sedimentation Rate 38 MM/HR (0-30) Differential Total Cells Counted 100 Neutrophils % (Manual) 58 % (45-75) Lymphocytes % (Manual) 34 % (20-45) Monocytes % (Manual) 6 % (1-10) Eosinophils % (Manual) 2 % (0-3) Basophils % (Manual) 0 % (0-2) Band Neutrophils 0 % (0-8) Platelet Estimate Adequate Platelet Morphology Normal Red Blood Cell Morphology Normal EKG Diagnostic Results Rate: normal Rhythm: NSR ST Segments: no acute changes Rhythm Strip Diag. Results EP Interpretation: yes Rate: 88 Rhythm: NSR, no PVC's, no ectopy Chest X-Ray Diagnostic Results Chest X-Ray Diagnostic Results : Chest X-Ray Ordered: Yes # of Views/Limited/Complete: 1 View Indication: Chest Pain EP Interpretation: Yes Interpretation: no consolidation, no effusion, no pneumothorax, other - Hiatal hernia Impression: No acute disease - Hiatal hernia seen on previous x-ray Electronically Signed by: Romelia London DO Last Vital Signs Date Time Temp Pulse Resp B/P (MAP) Pulse Ox O2 Delivery O2 Flow Rate FiO2 06/20/19 12:37 98.1 82 18 196/81 (119) 98 Room Air Status: improved Disposition: ADMITTED INPATIENT Condition: Serious Romelia London DO Jun 20, 2019 13:12
[2019-06-20 13:45] LABS: ANION GAP 8 mmol/L (5-15); BLOOD UREA NITROGEN 14 mg/dL (7-18); CALCIUM 8.2 MG/DL (8.5-10.1); CARBON DIOXIDE 26 MMOL/L (21-32); CHLORIDE 106 MMOL/L (98-107); CREATININE 1.1 MG/DL (0.55-1.30); POTASSIUM 5.2 MMOL/L (3.5-5.1); SODIUM 140 MMOL/L (136-145)
[2019-06-20 13:47] LABS: BASOPHILS % (AUTO) 1.5 % (0.0-2.0); EOSINOPHILS % (AUTO) 2.9 % (0.0-3.0); HEMATOCRIT 37.3 % (37.0-47.0); HEMOGLOBIN 12.4 G/DL (12.0-16.0); LYMPHOCYTES % (AUTO) 27.9 % (20.0-45.0); MEAN CORPUSCULAR VOLUME 94 FL (80-99); MONOCYTES % (AUTO) 6.2 % (1.0-10.0); NEUTROPHILS % (AUTO) 61.5 % (45.0-75.0); PLATELET COUNT 228 K/UL (150-450); RED BLOOD COUNT 3.99 M/UL (4.20-5.40); RED CELL DISTRIBUTION WIDTH 12.4 % (11.6-14.8)
[2019-06-20 13:49] VITALS: BP 196/81
[2019-06-20 13:50] LABS: ALANINE AMINOTRANSFERASE 27 U/L (12-78); ALBUMIN 2.9 G/DL (3.4-5.0); ALBUMIN/GLOBULIN RATIO 0.7 (1.0-2.7); ALKALINE PHOSPHATASE 98 U/L (46-116); ASPARTATE AMINO TRANSFERASE 33 U/L (15-37); BILIRUBIN,TOTAL 0.5 MG/DL (0.2-1.0); CREATINE KINASE 191 U/L (26-308)
--- NOTE | 2019-06-20 14:00 | NUR ---
NURSE NOTES: Received report from Leonardo ED RN. Pt is A/Ox4, breathing even and unlabored in RA. Complains of 7/10 pain in head and chest. IV site patent and intact. Checked belongings. Reconciled medication as best as the patient can. Tele monitor attached. Vitals and assessment performed. Bed on lowest position, call light within reach. Will continue to monitor. Informed Dr. Trejo regarding new admission.
--- NOTE | 2019-06-20 15:05 | NUR ---
ED Nurse Note: Telephone report given to PATSY Mcnally using SBAR.
[2019-06-20 16:00] VITALS: BP 155/73
[2019-06-20] MEDS ORDERED: HYDROcodone/Acetamin 5/325 tab ORAL PRN (18:45)
[2019-06-20] MEDS ORDERED: Zolpidem 5mg tab ORAL PRN (18:45)
[2019-06-20] MEDS ORDERED: Nitroglycerin Subl 0.4mg tab SL PRN (18:45)
--- NOTE | 2019-06-20 19:11 | NUR ---
HAND-OFF: Report given to PATSY Del Toro.
--- NOTE | 2019-06-20 19:57 | NUR ---
NURSE NOTES: RECEIVED PATIENT SITTING IN BED. FALL PRECAUTIONS IN PLACE: CALL LIGHT AND BEDSIDE TABLE WITHIN REACH, BED IN LOW POSITION. PLAN OF CARE REVIEWED.
[2019-06-20 20:00] VITALS: BP 213/98
[2019-06-20] MEDS: Morphine Sulfate 2mg/ml Inj(IV/IM USE ONLY) IVP PRN (20:23)
[2019-06-20 21:00] VITALS: BP 178/73
[2019-06-20] MEDS: NovoLOG Insulin Flexpen SUBQ SCH (21:17)
[2019-06-20] MEDS: Heparin 5000 units/ml inj SUBQ SCH (21:37)
[2019-06-21] VITALS: BP 123/60
[2019-06-21 04:00] VITALS: BP 146/63
[2019-06-21] MEDS: Heparin 5000 units/ml inj SUBQ SCH ×3 (06:03→21:28)
[2019-06-21] MEDS: NovoLOG Insulin Flexpen SUBQ SCH ×4 (06:03→21:27)
--- NOTE | 2019-06-21 07:27 | NUR ---
HAND-OFF: Report given to Maria Elena HA RN. PATIENT ASLEEP, NO SIGNS OF DISTRESS NOTED.
--- NOTE | 2019-06-21 07:30 | NUR ---
NURSE NOTES: Nurse report given by PATSY Del Toro. Patient's sleeping in bed, supine position, no s/s of distress or SOB. Bed low and locked, call light within reach, side rails x 2. IV is saline locked, patent and asymptomatic. Will continue to monitor.
[2019-06-21 08:00] VITALS: BP 136/61
[2019-06-21] MEDS: HydrALAZINE 50mg tab ORAL SCH ×3 (08:48→17:48)
[2019-06-21] MEDS: Docusate 100mg cap ORAL SCH ×2 (08:48→17:48)
[2019-06-21] MEDS: Aspirin EC 81mg tab ORAL SCH (08:48)
[2019-06-21] MEDS: Morphine Sulfate 2mg/ml Inj(IV/IM USE ONLY) IVP PRN ×2 (10:43→21:34)
[2019-06-21 12:00] VITALS: BP 150/88
--- NOTE | 2019-06-21 12:18 | Consultation ---
History of Present Illness General Date patient seen: Jun 21, 2019 Chief Complaint: Chest Pain Present Illness HPI 79 years old female with PMH of hypertension, diabetes mellitus, frequent falls at home, degenerative disc disease, presented to ER with CC of left upper chest and shoulder pain. She is admitted to rule out ACS. Allergies: Coded Allergies: CODEINE (Verified Allergy, Mild, Itching, 08/26/13) SULFA (SULFONAMIDE ANTIBIOTICS) (Verified Adverse Reaction, Mild, 08/26/13) VOMIT Medication History Scheduled Amlodipine Besylate (Norvasc), 10 MG ORAL DAILY, (Reported) Aspirin* (Aspir 81*), 81 MG ORAL DAILY, (Reported) Carisoprodol (Soma), 250 MG PO Q6H, (Reported) Docusate Sodium (Docusate Sodium), 100 MG ORAL BID, (Reported) Ferrous Sulfate (Ferosul), 325 MG PO BID, (Reported) Hum Insulin Nph/Reg Insulin Hm (Humulin 70-30 Vial), 50 SUBQ BIDAC, (Reported) Hydralazine Hcl* (Hydralazine Hcl*), 25 MG ORAL Q6HR Hydrochlorothiazide* (Hydrochlorothiazide*), 25 MG ORAL DAILY, (Reported) Lansoprazole* (Prevacid*), 30 MG ORAL DAILY, (Reported) Simvastatin (Zocor), 20 MG ORAL BEDTIME, (Reported) Scheduled PRN Clonidine HCl (Clonidine HCl ER), 0.1 MG PO Q6HR PRN Hydrocodone Bit/Acetaminophen 5-325* (Flomot 5-325*), 1 TAB ORAL Q6H PRN for For Pain Zolpidem Tartrate* (Ambien*), 5 MG ORAL BEDTIME PRN for Insomnia, (Reported) Miscellaneous Medications Unable to Obtain Medications (Unable To Obtain Meds), (Reported) Discontinued Medications Hydrocodone Bit/Acetaminophen (Vicodin 5-300 Mg Tablet), 1 TAB ORAL Q4H PRN for For Pain, (Reported) Discontinued Reason: Pt stopped taking med Ibuprofen* (Motrin*), 600 MG ORAL TIDPRN PRN Discontinued Reason: Pt stopped taking med Insulin Aspart (Novolog Flexpen), 8 UNITS SUBQ NOVOTIAC Discontinued Reason: Pt stopped taking med Insulin Detemir (Levemir Flexpen), 24 UNITS SUBQ DAILY Discontinued Reason: Pt stopped taking med Insuln Asp Prt/Insulin Aspart (Novolog Mix 70-30 Flexpen Syrn), 40 UNIT SQ BEFORE BREAKFAST, (Reported) Discontinued Reason: Pt stopped taking med Metformin Hcl* (Metformin Hcl*), 1,000 MG ORAL TID, (Reported) Discontinued Reason: Pt stopped taking med Sitagliptin (Januvia), 100 MG ORAL BEFORE BREAKFAST, (Reported) Discontinued Reason: Pt stopped taking med Valsartan/Hydrochlorothiazide 320-25MG (Diovan Hct 320-25 Mg Tablet), 1 TAB ORAL DAILY, (Reported) Discontinued Reason: Pt stopped taking med Patient History Healthcare decision maker Resuscitation status Full Code Advanced Directive on File Past Medical/Surgical History Past Medical/Surgical History: (1) Diabetes mellitus (2) Hypertension (3) Major depression Review of Systems All Other Systems: negative except mentioned in HPI Physical Exam General Appearance: WD/WN Lines, tubes and drains: peripheral HEENT: normocephalic, atraumatic Neck: non-tender, normal alignment Respiratory/Chest: chest wall non-tender, lungs clear Cardiovascular/Chest: normal peripheral pulses Abdomen: normal bowel sounds Genitourinary/Rectal: normal genital exam Neurologic: supervisor customer complaint service II-XII grossly normal Last 24 Hour Vital Signs Date Time Temp Pulse Resp B/P (MAP) Pulse Ox O2 Delivery O2 Flow Rate FiO2 06/21/19 11:18 97.2 06/21/19 09:00 Room Air 06/21/19 08:48 136/61 06/21/19 08:48 65 136/61 06/21/19 08:00 97.2 65 18 136/61 (86) 99 06/21/19 08:00 66 06/21/19 04:00 98.0 61 18 146/63 (90) 99 06/21/19 04:00 62 06/21/19 00:00 97.9 60 18 123/60 (81) 98 06/21/19 00:00 61 06/20/19 21:00 178/73 (108) 06/20/19 21:00 Room Air 06/20/19 20:22 213/80 06/20/19 20:00 78 06/20/19 20:00 98.8 80 20 213/98 (136) 98 06/20/19 18:22 98.1 18 154/70 98 Room Air 06/20/19 16:49 Room Air 06/20/19 16:08 81 06/20/19 16:00 98.2 76 18 155/73 (100) 98 06/20/19 14:46 98.1 06/20/19 13:50 82 18 Room Air 06/20/19 13:49 98.1 18 196/81 98 Room Air 06/20/19 12:37 98.1 82 18 196/81 (119) 98 Room Air Intake and Output 06/20/19 06/21/19 19:00 07:00 Intake Total 860 ml 120 ml Balance 860 ml 120 ml Intake Oral 360 ml 120 ml IV Total 500 ml # Voids 1 Laboratory Tests Test 06/20/19 12:52 White Blood Count 6.0 K/UL (4.8-10.8) Red Blood Count 3.99 M/UL (4.20-5.40) L Hemoglobin 12.4 G/DL (12.0-16.0) Hematocrit 37.3 % (37.0-47.0) Mean Corpuscular Volume 94 FL (80-99) Mean Corpuscular Hemoglobin 31.0 PG (27.0-31.0) Mean Corpuscular Hemoglobin Concent 33.1 G/DL (32.0-36.0) Red Cell Distribution Width 12.4 % (11.6-14.8) Platelet Count 228 K/UL (150-450) Mean Platelet Volume 6.7 FL (6.5-10.1) Neutrophils (%) (Auto) 61.5 % (45.0-75.0) Lymphocytes (%) (Auto) 27.9 % (20.0-45.0) Monocytes (%) (Auto) 6.2 % (1.0-10.0) Eosinophils (%) (Auto) 2.9 % (0.0-3.0) Basophils (%) (Auto) 1.5 % (0.0-2.0) Sodium Level 140 MMOL/L (136-145) Potassium Level 5.2 MMOL/L (3.5-5.1) H Chloride Level 106 MMOL/L (98-107) Carbon Dioxide Level 26 MMOL/L (21-32) Anion Gap 8 mmol/L (5-15) Blood Urea Nitrogen 14 mg/dL (7-18) Creatinine 1.1 MG/DL (0.55-1.30) Estimat Glomerular Filtration Rate mL/min (>60) Glucose Level 343 MG/DL (74-106) H Calcium Level 8.2 MG/DL (8.5-10.1) L Total Bilirubin 0.5 MG/DL (0.2-1.0) Aspartate Amino Transf (AST/SGOT) 33 U/L (15-37) Alanine Aminotransferase (ALT/SGPT) 27 U/L (12-78) Alkaline Phosphatase 98 U/L (46-116) Total Creatine Kinase 191 U/L (26-308) Troponin I 0.015 ng/mL (0.000-0.056) Total Protein 7.2 G/DL (6.4-8.2) Albumin 2.9 G/DL (3.4-5.0) L Globulin 4.3 g/dL Albumin/Globulin Ratio 0.7 (1.0-2.7) L Lipase 88 U/L (73-393) Height (Feet): 5 Height (Inches): 8.00 Weight (Pounds): 193 Medications Current Medications Medications (Trade) Dose Ordered Sig/Hever Route PRN Reason Start Time Stop Time Status Last Admin Dose Admin Acetaminophen/ Hydrocodone Bitart (Flomot 5/325) 1 tab Q6H PRN ORAL For Pain 06/20/19 18:45 06/27/19 18:44 Amlodipine Besylate (Norvasc) 10 mg DAILY ORAL 06/21/19 09:00 07/21/19 08:59 06/21/19 08:48 Aspirin (Ecotrin) 81 mg DAILY ORAL 06/21/19 09:00 07/21/19 08:59 06/21/19 08:48 Carisoprodol (Soma) 350 mg Q6H PRN ORAL Muscle Spasm 06/20/19 18:45 07/20/19 18:44 Clonidine HCl (Catapres Tab) 0.1 mg Q6H PRN ORAL For High Blood Pressure 06/20/19 18:45 07/20/19 18:44 06/20/19 20:22 Dextrose (Dextrose 50%) 25 ml Q30M PRN IV Hypoglycemia 06/20/19 18:45 07/20/19 18:44 Dextrose (Dextrose 50%) 50 ml Q30M PRN IV Hypoglycemia 06/20/19 18:45 07/20/19 18:44 Docusate Sodium (Colace) 100 mg BID ORAL 06/21/19 09:00 07/21/19 08:59 06/21/19 08:48 Ferrous Sulfate (Feosol) 325 mg BID ORAL 06/21/19 09:00 07/21/19 08:59 06/21/19 08:48 Heparin Sodium (Porcine) (Heparin 5000 units/ml) 5,000 units EVERY 8 HOURS SUBQ 06/20/19 22:00 07/20/19 21:59 06/21/19 06:03 Hydralazine HCl (Apresoline) 50 mg TID ORAL 06/21/19 09:00 07/21/19 08:59 06/21/19 08:48 Hydrochlorothiazide (Hydrodiuril) 25 mg DAILY ORAL 06/21/19 09:00 07/21/19 08:59 06/21/19 08:48 Insulin Aspart (NovoLOG) BEFORE MEALS AND HS SUBQ 06/20/19 21:00 07/20/19 20:59 06/21/19 11:18 Lansoprazole (Prevacid) 30 mg DAILY ORAL 06/21/19 09:00 07/21/19 08:59 06/21/19 08:48 Morphine Sulfate (Morphine Sulfate) 2 mg Q4H PRN IVP Chest Pain 06/20/19 18:45 06/27/19 18:44 06/21/19 10:43 Nitroglycerin (Ntg) 0.4 mg Q5M PRN SL Prn Chest Pain 06/20/19 18:45 07/20/19 18:44 Zolpidem Tartrate (Ambien) 5 mg HSPRN PRN ORAL Insomnia 06/20/19 18:45 06/27/19 18:44 Assessment/Plan Problem List: (1) ACS (acute coronary syndrome) ICD Codes: I24.9 - Acute ischemic heart disease, unspecified SNOMED: 583996482 (2) Diabetes mellitus ICD Codes: E11.9 - Type 2 diabetes mellitus without complications SNOMED: 37290763 (3) Hypertension ICD Codes: I10 - Essential (primary) hypertension SNOMED: 78409370 (4) Major depression ICD Codes: F32.9 - Major depressive disorder, single episode, unspecified SNOMED: 23810567, 156667750 (5) DDD (degenerative disc disease), lumbar ICD Codes: M51.36 - Other intervertebral disc degeneration, lumbar region SNOMED: 70139447 Anna Mckeon MD Jun 21, 2019 12:18
--- NOTE | 2019-06-21 12:47 | Diagnostic Imaging Report ---
Indication: Dyspnea Comparison: 01/03/2017 A single view chest radiograph was obtained. Findings: No definite infiltrate or pulmonary vascular congestion identified. Large hiatal hernia again noted. The heart is enlarged. The aorta is mildly enlarged consistent with atherosclerotic vascular disease. The bones are osteopenic. Spinal thoracic endplate osteophytes noted. Impression: No acute disease
[2019-06-21 13:04] LABS: BASOPHILS % (AUTO) 1.6 % (0.0-2.0); EOSINOPHILS % (AUTO) 4.2 % (0.0-3.0); HEMATOCRIT 34.1 % (37.0-47.0); HEMOGLOBIN 11.6 G/DL (12.0-16.0); LYMPHOCYTES % (AUTO) 42.2 % (20.0-45.0); MEAN CORPUSCULAR VOLUME 93 FL (80-99); MONOCYTES % (AUTO) 5.6 % (1.0-10.0); NEUTROPHILS % (AUTO) 46.3 % (45.0-75.0); PLATELET COUNT 185 K/UL (150-450); RED BLOOD COUNT 3.67 M/UL (4.20-5.40); RED CELL DISTRIBUTION WIDTH 11.8 % (11.6-14.8); WHITE BLOOD COUNT 3.7 K/UL (4.8-10.8)
[2019-06-21 13:35] LABS: ALANINE AMINOTRANSFERASE 32 U/L (12-78); ALBUMIN 2.7 G/DL (3.4-5.0); ALBUMIN/GLOBULIN RATIO 0.7 (1.0-2.7); ALKALINE PHOSPHATASE 104 U/L (46-116); ANION GAP 5 mmol/L (5-15); ASPARTATE AMINO TRANSFERASE 34 U/L (15-37); BILIRUBIN,TOTAL 0.3 MG/DL (0.2-1.0); BLOOD UREA NITROGEN 13 mg/dL (7-18); CALCIUM 8.2 MG/DL (8.5-10.1); CARBON DIOXIDE 26 MMOL/L (21-32); CHLORIDE 104 MMOL/L (98-107); CHOLESTEROL 139 MG/DL (< 200); HDL CHOLESTEROL 58 MG/DL (40-60); POTASSIUM 4.4 MMOL/L (3.5-5.1); SODIUM 135 MMOL/L (136-145); TRIGLYCERIDES 74 MG/DL (30-150)
[2019-06-21 13:38] LABS: PHOSPHORUS 3.2 MG/DL (2.5-4.9)
--- NOTE | 2019-06-21 15:46 | NUR ---
CASE MANAGEMENT:REVIEW 78YR OLD FEMALE BIBA FROM HOME CC; CHEST PAIN. SOB SI:ACS 98.0 82 18 196/81 98% ON RA K+5.2 GLUCOSE+343 TROPONIN(-) IS: ASA PO GIVEN PATIENT NAVIGATOR NTG SPRAY GIVEN PATIENT NAVIGATOR 500CC NS BOLUS TYLENOL PO : TELEMETRY STATUS DCP: FROM HOME
[2019-06-21 16:00] VITALS: BP 126/56
--- NOTE | 2019-06-21 18:55 | History & Physical ---
History and Physical History & Physicial Dictated for Int Med-Dr Trejo no. [id number]. Isael Hutton MD Jun 21, 2019 18:55
--- NOTE | 2019-06-21 19:30 | NUR ---
NURSE NOTES: Received pt and report from PATSY Avery. Observed pt resting in bed with both eyes open and watching television. Pt is A/Ox4. radiation monitor is in placed; pt is NSR. IV site intact, asymptomatic, and patent. Bed is in the lowest position and locked. Call light and beside table is within reach. No signs/symptoms of acute distress noted at this time. Will continue plan of care.
--- NOTE | 2019-06-21 19:40 | NUR ---
HAND-OFF: eport given to PATSY Parra. Patient's stable. Plan of care endorsed.
--- NOTE | 2019-06-21 19:45 | History and Physical Report ---
DATE OF ADMISSION: 06/20/2019 CHIEF COMPLAINT: The patient is a 78-year-old female, who presents with a chief complaint of chest pain. HISTORY OF PRESENT ILLNESS: Began 06/19/2019. The patient began to have left upper chest pain. There was no radiation to the jaw or to the shoulder. The patient states the pain kept her up at night. The patient presented to [place] emergency room. The patient is admitted for chest pain to rule out acute coronary syndrome. REVIEW OF SYSTEMS: CONSTITUTIONAL: The patient denies weight loss or weight gain. The patient denies fevers or chills. HEENT: The patient denies ear or throat pain. The patient denies headache. CARDIOVASCULAR: The patient complains of chest pain as above. The patient denies palpitations. ABDOMINAL: The patient denies nausea, vomiting, diarrhea, or constipation. GENITOURINARY: The patient denies dysuria or increased frequency of urination. NEUROMUSCULAR: The patient denies seizures or generalized weakness. PAST MEDICAL HISTORY: Significant for: 1. Type 2 diabetes. 2. Hypertension. 3. History of chest pain, status post stress test approximately 5 years ago. PAST SURGICAL HISTORY: Right eye surgery, secondary to hypertensive hemorrhage. CURRENT MEDICATIONS: 1. Amlodipine 10 mg one tab p.o. daily. 2. Aspirin 81 mg p.o. daily. 3. Soma 250 mg p.o. q.6 hours p.r.n. 4. Clonidine 0.1 mg p.o. q.6 hours p.r.n. 5. Iron sulfate 325 mg p.o. twice daily. 6. Humulin 70/30 50 units subcutaneously twice daily. 7. Hydralazine 25 mg p.o. q.6 hours. 8. Hydrochlorothiazide 25 mg p.o. daily. 9. Prevacid 30 mg p.o. daily. 10. Simvastatin 20 mg p.o. at bedtime. ALLERGIES: 1. Codeine. 2. Sulfa containing drugs. SOCIAL HISTORY: The patient is a . The patient lives with her family. The patient denies tobacco or alcohol use. PHYSICAL EXAMINATION: VITAL SIGNS: Temperature 97.9, respirations 18, pulse 60, blood pressure 123/60. GENERAL: The patient is a well-developed, well-nourished female, in no apparent distress. HEENT: Eyes, pupils equal and responsive to light and accommodation. Extraocular movements are intact. NECK: Supple without lymphadenopathy. CHEST: Lungs are clear to auscultation bilaterally without wheezes or rales. CARDIOVASCULAR: Regular rhythm and rate. S1 and S2 are normal without murmurs, rubs, or gallops. ABDOMEN: Soft, nontender, and nondistended. Positive bowel sounds. No evidence of hepatosplenomegaly. Currently, no rebound or guarding noted. EXTREMITIES: Negative for clubbing, cyanosis, or edema. RECTAL/GENITAL: Not performed. NEUROLOGIC: Cranial nerves II through XII are grossly intact without focal deficits. Motor strength is 5/5 bilaterally. Deep tendon reflexes are 2+ plantar. LABORATORY STUDIES: WBC 6.2, hemoglobin 12.4, hematocrit 37.3, platelets 228,000. Sodium 140, potassium 5.2, chloride 106, CO2 26, BUN 14, creatinine 1.1, glucose 343. Troponin . ASSESSMENT: This is a 78-year-old female with: 1. Chest pain. 2. Hypertension. 3. Diabetes type 2. TREATMENT: 1. Chest pain. A Cardiology consultation has been obtained with Dr. Seun Kaye. Serial troponin levels will be performed. An echocardiogram is pending. We will follow recommendations of Cardiology. 2. Hypertension. Continue amlodipine, clonidine, hydrochlorothiazide, hydralazine as above. 3. Diabetes type 2. NovoLog sliding scale has been instituted. 4. Hypercholesterolemia. Continue atorvastatin as above. Isael Hutton M.D. DR: AUSTIN JOB#: [id number] CC:
[2019-06-21 20:00] VITALS: BP 140/65
[2019-06-22] VITALS: BP 146/59
[2019-06-22] MEDS: NovoLOG Insulin Flexpen SUBQ SCH ×4 (06:15→22:01)
[2019-06-22] MEDS: Heparin 5000 units/ml inj SUBQ SCH ×3 (06:16→22:02)
[2019-06-22 06:55] LABS: BASOPHILS % (AUTO) 1.6 % (0.0-2.0); EOSINOPHILS % (AUTO) 4.3 % (0.0-3.0); LYMPHOCYTES % (AUTO) 26.9 % (20.0-45.0); MEAN CORPUSCULAR VOLUME 93 FL (80-99); MONOCYTES % (AUTO) 11.1 % (1.0-10.0); NEUTROPHILS % (AUTO) 56.2 % (45.0-75.0); PLATELET COUNT 208 K/UL (150-450); RED BLOOD COUNT 3.54 M/UL (4.20-5.40); RED CELL DISTRIBUTION WIDTH 12.2 % (11.6-14.8); WHITE BLOOD COUNT 3.9 K/UL (4.8-10.8)
--- NOTE | 2019-06-22 07:24 | NUR ---
HAND-OFF: Report given to PATSY Teague. Plan of care endorsed. Currently no IV access. Pt does not want IV reinsertion until after breakfast. Endorsed to PATSY Teague.
[2019-06-22 07:37] LABS: ALANINE AMINOTRANSFERASE 29 U/L (12-78); ALBUMIN 2.8 G/DL (3.4-5.0); ALBUMIN/GLOBULIN RATIO 0.7 (1.0-2.7); ALKALINE PHOSPHATASE 100 U/L (46-116); ANION GAP 8 mmol/L (5-15); ASPARTATE AMINO TRANSFERASE 18 U/L (15-37); BILIRUBIN,TOTAL 0.3 MG/DL (0.2-1.0); BLOOD UREA NITROGEN 16 mg/dL (7-18); CALCIUM 8.4 MG/DL (8.5-10.1); CARBON DIOXIDE 26 MMOL/L (21-32); CHLORIDE 104 MMOL/L (98-107); CREATININE 1.2 MG/DL (0.55-1.30); PHOSPHORUS 3.5 MG/DL (2.5-4.9); POTASSIUM 4.5 MMOL/L (3.5-5.1); SODIUM 138 MMOL/L (136-145)
--- NOTE | 2019-06-22 07:50 | NUR ---
NURSE NOTES: received pt in the bed, awake, alert, oriented, ambulatory, vital signs stable, no co pain, no SOB, skin warm and dry to touch, intact, tolerate diet well, bed in low position, call light within reach.
[2019-06-22 08:00] VITALS: BP 160/66
[2019-06-22] MEDS: Aspirin EC 81mg tab ORAL SCH (09:04)
[2019-06-22] MEDS: Docusate 100mg cap ORAL SCH ×2 (09:04→17:09)
[2019-06-22] MEDS: HydrALAZINE 50mg tab ORAL SCH ×3 (09:04→17:09)
[2019-06-22 12:00] VITALS: BP 153/73
--- NOTE | 2019-06-22 12:50 | Pulmonology Progress Note ---
Assessment/Plan Problems: (1) ACS (acute coronary syndrome) (2) Diabetes mellitus (3) Hypertension (4) Major depression (5) DDD (degenerative disc disease), lumbar Assessment/Plan troponins are negative echo pending cardio consult pending sliding scale diabetic diet dvt prophylaxis. Subjective ROS Limited/Unobtainable: No Constitutional: Reports: no symptoms HEENT: Repors: no symptoms Allergies: Coded Allergies: CODEINE (Verified Allergy, Mild, Itching, 08/26/13) SULFA (SULFONAMIDE ANTIBIOTICS) (Verified Adverse Reaction, Mild, 08/26/13) VOMIT Objective Last 24 Hour Vital Signs Date Time Temp Pulse Resp B/P (MAP) Pulse Ox O2 Delivery O2 Flow Rate FiO2 06/22/19 12:30 153/73 06/22/19 12:00 97.9 59 18 153/73 (99) 96 06/22/19 12:00 62 06/22/19 09:04 160/66 06/22/19 09:04 68 160/66 06/22/19 09:00 Room Air 06/22/19 08:00 80 06/22/19 08:00 99.3 68 18 160/66 (97) 96 06/22/19 04:00 66 06/22/19 00:00 71 06/22/19 00:00 97.3 74 20 146/59 (88) 97 06/21/19 21:00 Room Air 06/21/19 20:00 98.1 67 20 140/65 (90) 97 06/21/19 20:00 66 06/21/19 17:48 126/56 06/21/19 16:00 68 06/21/19 16:00 98.1 71 18 126/56 (79) 99 06/21/19 13:50 136/61 Intake and Output 06/21/19 06/22/19 19:00 07:00 Intake Total 450 ml Balance 450 ml Intake Oral 450 ml # Voids 2 1 General Appearance: WD/WN HEENT: normocephalic, atraumatic Cardiovascular: normal peripheral pulses, normal rate Abdomen: normal bowel sounds Genitourinary: normal external genitalia Extremities: no cyanosis Skin: no rash Neurologic/Psychiatric: color expert II-XII grossly normal Lymphatic: no neck adenopathy Laboratory Tests 06/22/19 06:11: White Blood Count 3.9L, Red Blood Count 3.54L, Hemoglobin 11.0L, Hematocrit 33.0L, Mean Corpuscular Volume 93, Mean Corpuscular Hemoglobin 31.2H, Mean Corpuscular Hemoglobin Concent 33.5, Red Cell Distribution Width 12.2, Platelet Count 208, Mean Platelet Volume 6.1L, Neutrophils (%) (Auto) 56.2, Lymphocytes ( %) (Auto) 26.9, Monocytes (%) (Auto) 11.1H, Eosinophils (%) (Auto) 4.3H, Basophils (%) (Auto) 1.6, Erythrocyte Sedimentation Rate 38H, Sodium Level 138, Potassium Level 4.5, Chloride Level 104, Carbon Dioxide Level 26, Anion Gap 8, Blood Urea Nitrogen 16, Creatinine 1.2, Estimat Glomerular Filtration Rate , Glucose Level 357H, Calcium Level 8.4L, Phosphorus Level 3.5, Magnesium Level 1.8, Total Bilirubin 0.3, Aspartate Amino Transf (AST/SGOT) 18, Alanine Aminotransferase (ALT/SGPT) 29, Alkaline Phosphatase 100, Troponin I 0.038, Total Protein 6.7, Albumin 2.8L, Globulin 3.9, Albumin/Globulin Ratio 0.7L Current Medications Medications (Trade) Dose Ordered Sig/Hever Route PRN Reason Start Time Stop Time Status Last Admin Dose Admin Acetaminophen/ Hydrocodone Bitart ([place] 5/325) 1 tab Q6H PRN ORAL For Pain 06/20/19 18:45 06/27/19 18:44 06/22/19 05:26 Amlodipine Besylate (Norvasc) 10 mg DAILY ORAL 06/21/19 09:00 07/21/19 08:59 06/22/19 09:04 Aspirin (Ecotrin) 81 mg DAILY ORAL 06/21/19 09:00 07/21/19 08:59 06/22/19 09:04 Carisoprodol (Soma) 350 mg Q6H PRN ORAL Muscle Spasm 06/20/19 18:45 07/20/19 18:44 Clonidine HCl (Catapres Tab) 0.1 mg Q6H PRN ORAL For High Blood Pressure 06/20/19 18:45 07/20/19 18:44 06/20/19 20:22 Dextrose (Dextrose 50%) 25 ml Q30M PRN IV Hypoglycemia 06/20/19 18:45 07/20/19 18:44 Dextrose (Dextrose 50%) 50 ml Q30M PRN IV Hypoglycemia 06/20/19 18:45 07/20/19 18:44 Docusate Sodium (Colace) 100 mg BID ORAL 06/21/19 09:00 07/21/19 08:59 06/22/19 09:04 Ferrous Sulfate (Feosol) 325 mg BID ORAL 06/21/19 09:00 07/21/19 08:59 06/22/19 09:04 Heparin Sodium (Porcine) (Heparin 5000 units/ml) 5,000 units EVERY 8 HOURS SUBQ 06/20/19 22:00 07/20/19 21:59 06/22/19 06:16 Hydralazine HCl (Apresoline) 50 mg TID ORAL 06/21/19 09:00 07/21/19 08:59 06/22/19 12:30 Hydrochlorothiazide (Hydrodiuril) 25 mg DAILY ORAL 06/21/19 09:00 07/21/19 08:59 06/22/19 09:04 Insulin Aspart (NovoLOG) BEFORE MEALS AND HS SUBQ 06/20/19 21:00 07/20/19 20:59 06/22/19 11:45 Lansoprazole (Prevacid) 30 mg DAILY ORAL 06/21/19 09:00 07/21/19 08:59 06/22/19 09:04 Morphine Sulfate (Morphine Sulfate) 2 mg Q4H PRN IVP Chest Pain 06/20/19 18:45 06/27/19 18:44 06/21/19 21:34 Nitroglycerin (Ntg) 0.4 mg Q5M PRN SL Prn Chest Pain 06/20/19 18:45 07/20/19 18:44 Zolpidem Tartrate (Ambien) 5 mg HSPRN PRN ORAL Insomnia 06/20/19 18:45 06/27/19 18:44 Anna Mckeon MD Jun 22, 2019 12:50
[2019-06-22 16:00] VITALS: BP 155/64
--- NOTE | 2019-06-22 17:16 | Internal Med Progress Note ---
Subjective Date of Service: Jun 22, 2019 Physician Name Isael Hutton Attending Physician Emre Trejo MD Current Medications Medications (Trade) Dose Ordered Sig/Hever Route PRN Reason Start Time Stop Time Status Last Admin Dose Admin Acetaminophen/ Hydrocodone Bitart ([place] 5/325) 1 tab Q6H PRN ORAL For Pain 06/20/19 18:45 06/27/19 18:44 06/22/19 05:26 Amlodipine Besylate (Norvasc) 10 mg DAILY ORAL 06/21/19 09:00 07/21/19 08:59 06/22/19 09:04 Aspirin (Ecotrin) 81 mg DAILY ORAL 06/21/19 09:00 07/21/19 08:59 06/22/19 09:04 Carisoprodol (Soma) 350 mg Q6H PRN ORAL Muscle Spasm 06/20/19 18:45 07/20/19 18:44 Clonidine HCl (Catapres Tab) 0.1 mg Q6H PRN ORAL For High Blood Pressure 06/20/19 18:45 07/20/19 18:44 06/20/19 20:22 Dextrose (Dextrose 50%) 25 ml Q30M PRN IV Hypoglycemia 06/20/19 18:45 07/20/19 18:44 Dextrose (Dextrose 50%) 50 ml Q30M PRN IV Hypoglycemia 06/20/19 18:45 07/20/19 18:44 Docusate Sodium (Colace) 100 mg BID ORAL 06/21/19 09:00 07/21/19 08:59 06/22/19 17:09 Ferrous Sulfate (Feosol) 325 mg BID ORAL 06/21/19 09:00 07/21/19 08:59 06/22/19 17:09 Heparin Sodium (Porcine) (Heparin 5000 units/ml) 5,000 units EVERY 8 HOURS SUBQ 06/20/19 22:00 07/20/19 21:59 06/22/19 13:37 Hydralazine HCl (Apresoline) 50 mg TID ORAL 06/21/19 09:00 07/21/19 08:59 06/22/19 17:09 Hydrochlorothiazide (Hydrodiuril) 25 mg DAILY ORAL 06/21/19 09:00 07/21/19 08:59 06/22/19 09:04 Insulin Aspart (NovoLOG) BEFORE MEALS AND HS SUBQ 06/20/19 21:00 07/20/19 20:59 06/22/19 17:06 Lansoprazole (Prevacid) 30 mg DAILY ORAL 06/21/19 09:00 07/21/19 08:59 06/22/19 09:04 Morphine Sulfate (Morphine Sulfate) 2 mg Q4H PRN IVP Chest Pain 06/20/19 18:45 06/27/19 18:44 06/21/19 21:34 Nitroglycerin (Ntg) 0.4 mg Q5M PRN SL Prn Chest Pain 06/20/19 18:45 07/20/19 18:44 Zolpidem Tartrate (Ambien) 5 mg HSPRN PRN ORAL Insomnia 06/20/19 18:45 06/27/19 18:44 Allergies: Coded Allergies: CODEINE (Verified Allergy, Mild, Itching, 08/26/13) SULFA (SULFONAMIDE ANTIBIOTICS) (Verified Adverse Reaction, Mild, 08/26/13) VOMIT ROS Limited/Unobtainable: No Constitutional: Reports: no symptoms HEENT: Reports: no symptoms Cardiovascular: Reports: chest pain Respiratory: Reports: no symptoms Gastrointestinal/Abdominal: Reports: no symptoms Genitourinary: Reports: no symptoms Neurologic/Psychiatric: Reports: no symptoms Subjective 78 YO F admitted with chest pain. Cover for Molly Del Rio-Dr Trejo Objective Last Vital Signs Date Time Temp Pulse Resp B/P (MAP) Pulse Ox O2 Delivery O2 Flow Rate FiO2 06/22/19 17:09 155/64 06/22/19 16:00 98.2 72 19 97 06/22/19 09:00 Room Air Laboratory Tests Test 06/22/19 06:11 White Blood Count 3.9 K/UL (4.8-10.8) L Red Blood Count 3.54 M/UL (4.20-5.40) L Hemoglobin 11.0 G/DL (12.0-16.0) L Hematocrit 33.0 % (37.0-47.0) L Mean Corpuscular Volume 93 FL (80-99) Mean Corpuscular Hemoglobin 31.2 PG (27.0-31.0) H Mean Corpuscular Hemoglobin Concent 33.5 G/DL (32.0-36.0) Red Cell Distribution Width 12.2 % (11.6-14.8) Platelet Count 208 K/UL (150-450) Mean Platelet Volume 6.1 FL (6.5-10.1) L Neutrophils (%) (Auto) 56.2 % (45.0-75.0) Lymphocytes (%) (Auto) 26.9 % (20.0-45.0) Monocytes (%) (Auto) 11.1 % (1.0-10.0) H Eosinophils (%) (Auto) 4.3 % (0.0-3.0) H Basophils (%) (Auto) 1.6 % (0.0-2.0) Erythrocyte Sedimentation Rate 38 MM/HR (0-30) H Sodium Level 138 MMOL/L (136-145) Potassium Level 4.5 MMOL/L (3.5-5.1) Chloride Level 104 MMOL/L (98-107) Carbon Dioxide Level 26 MMOL/L (21-32) Anion Gap 8 mmol/L (5-15) Blood Urea Nitrogen 16 mg/dL (7-18) Creatinine 1.2 MG/DL (0.55-1.30) Estimat Glomerular Filtration Rate mL/min (>60) Glucose Level 357 MG/DL (74-106) H Calcium Level 8.4 MG/DL (8.5-10.1) L Phosphorus Level 3.5 MG/DL (2.5-4.9) Magnesium Level 1.8 MG/DL (1.8-2.4) Total Bilirubin 0.3 MG/DL (0.2-1.0) Aspartate Amino Transf (AST/SGOT) 18 U/L (15-37) Alanine Aminotransferase (ALT/SGPT) 29 U/L (12-78) Alkaline Phosphatase 100 U/L (46-116) Troponin I 0.038 ng/mL (0.000-0.056) Total Protein 6.7 G/DL (6.4-8.2) Albumin 2.8 G/DL (3.4-5.0) L Globulin 3.9 g/dL Albumin/Globulin Ratio 0.7 (1.0-2.7) L Intake and Output 06/21/19 06/22/19 19:00 07:00 Intake Total 450 ml Balance 450 ml Intake Oral 450 ml # Voids 2 1 Objective PHYSICAL EXAMINATION: GENERAL: The patient is a well-developed, well-nourished female, in no apparent distress. HEENT: Eyes, pupils equal and responsive to light and accommodation. Extraocular movements are intact. NECK: Supple without lymphadenopathy. CHEST: Lungs are clear to auscultation bilaterally without wheezes or rales. CARDIOVASCULAR: Regular rhythm and rate. S1 and S2 are normal without murmurs, rubs, or gallops. ABDOMEN: Soft, nontender, and nondistended. Positive bowel sounds. No evidence of hepatosplenomegaly. Currently, no rebound or guarding noted. EXTREMITIES: Negative for clubbing, cyanosis, or edema. RECTAL/GENITAL: Not performed. NEUROLOGIC: Cranial nerves II through XII are grossly intact without focal deficits. Motor strength is 5/5 bilaterally. Deep tendon reflexes are 2+ plantar. Assessment/Plan Assessment/Plan ASSESSMENT: This is a 78-year-old female with: 1. Chest pain. 2. Hypertension. 3. Diabetes type 2. 4. Hypercholesterlemia TREATMENT: 1. Chest pain. A Cardiology consultation has been obtained with Dr. Seun Kaye. Serial troponin levels will be performed. An echocardiogram is pending. We will follow recommendations of Cardiology. 2. Hypertension. Continue amlodipine, clonidine, hydrochlorothiazide, hydralazine as above. 3. Diabetes type 2. NovoLog sliding scale has been instituted. 4. Hypercholesterolemia. Continue atorvastatin as above. Isael Hutton MD Jun 22, 2019 17:15
[2019-06-22] MEDS ORDERED: REPLESTA50000 UNIT PO (19:08)
[2019-06-22] MEDS ORDERED: CATAPRES0.1 MG ORAL (19:08)
[2019-06-22] MEDS ORDERED: LIDOCAINE5 GM TP (19:08)
[2019-06-22] MEDS ORDERED: NOVOLIN R100 UNIT/1 SUBQ (19:08)
[2019-06-22] MEDS ORDERED: JANUMET 50-5001 EACH ORAL (19:08)
[2019-06-22] MEDS ORDERED: VITAMIN C500 M1 ORAL (19:08)
[2019-06-22] MEDS ORDERED: LIDODERM700 M1 TOPIC (19:08)
[2019-06-22] MEDS ORDERED: NORCO 5-325 TA1 EACH ORAL (19:08)
[2019-06-22] MEDS ORDERED: LYRICA75 M1 ORAL (19:08)
--- NOTE | 2019-06-22 19:24 | NUR ---
HAND-OFF: Report given to JOSEPH RN, no distress at this time.
--- NOTE | 2019-06-22 19:25 | NUR ---
NURSE NOTES: Received pt in bed, awake, alert, oriented, ambulatory, vital signs stable, no co pain, no SOB, skin warm and dry to touch, intact, IV patent, bed in low position, locked, call light within reach
[2019-06-22 20:00] VITALS: BP 135/65
[2019-06-22] MEDS ORDERED: Milk of Magnesia 30ml Ud ORAL PRN (20:00)
--- NOTE | 2019-06-22 20:02 | Cardiology Progress Note ---
Assessment/Plan Assessment/Plan [id number] does nto want tohave med induced stress testign all trop neg ekg neg will have pt fu as out pt for stress testing add an arb for b-p control resume statin ok to dc home with fu with me as outpt Objective Last 24 Hour Vital Signs Date Time Temp Pulse Resp B/P (MAP) Pulse Ox O2 Delivery O2 Flow Rate FiO2 06/22/19 17:09 155/64 06/22/19 16:00 74 06/22/19 16:00 98.2 72 19 155/64 (94) 97 06/22/19 12:30 153/73 06/22/19 12:00 97.9 59 18 153/73 (99) 96 06/22/19 12:00 62 06/22/19 09:04 160/66 06/22/19 09:04 68 160/66 06/22/19 09:00 Room Air 06/22/19 08:00 80 06/22/19 08:00 99.3 68 18 160/66 (97) 96 06/22/19 04:00 66 06/22/19 00:00 71 06/22/19 00:00 97.3 74 20 146/59 (88) 97 06/21/19 21:00 Room Air Intake and Output 06/21/19 06/22/19 18:59 06:59 Intake Total 450 ml Balance 450 ml Intake Oral 450 ml # Voids 2 1 Laboratory Tests Test 06/22/19 06:11 White Blood Count 3.9 K/UL (4.8-10.8) L Red Blood Count 3.54 M/UL (4.20-5.40) L Hemoglobin 11.0 G/DL (12.0-16.0) L Hematocrit 33.0 % (37.0-47.0) L Mean Corpuscular Volume 93 FL (80-99) Mean Corpuscular Hemoglobin 31.2 PG (27.0-31.0) H Mean Corpuscular Hemoglobin Concent 33.5 G/DL (32.0-36.0) Red Cell Distribution Width 12.2 % (11.6-14.8) Platelet Count 208 K/UL (150-450) Mean Platelet Volume 6.1 FL (6.5-10.1) L Neutrophils (%) (Auto) 56.2 % (45.0-75.0) Lymphocytes (%) (Auto) 26.9 % (20.0-45.0) Monocytes (%) (Auto) 11.1 % (1.0-10.0) H Eosinophils (%) (Auto) 4.3 % (0.0-3.0) H Basophils (%) (Auto) 1.6 % (0.0-2.0) Erythrocyte Sedimentation Rate 38 MM/HR (0-30) H Sodium Level 138 MMOL/L (136-145) Potassium Level 4.5 MMOL/L (3.5-5.1) Chloride Level 104 MMOL/L (98-107) Carbon Dioxide Level 26 MMOL/L (21-32) Anion Gap 8 mmol/L (5-15) Blood Urea Nitrogen 16 mg/dL (7-18) Creatinine 1.2 MG/DL (0.55-1.30) Estimat Glomerular Filtration Rate mL/min (>60) Glucose Level 357 MG/DL (74-106) H Calcium Level 8.4 MG/DL (8.5-10.1) L Phosphorus Level 3.5 MG/DL (2.5-4.9) Magnesium Level 1.8 MG/DL (1.8-2.4) Total Bilirubin 0.3 MG/DL (0.2-1.0) Aspartate Amino Transf (AST/SGOT) 18 U/L (15-37) Alanine Aminotransferase (ALT/SGPT) 29 U/L (12-78) Alkaline Phosphatase 100 U/L (46-116) Troponin I 0.038 ng/mL (0.000-0.056) Total Protein 6.7 G/DL (6.4-8.2) Albumin 2.8 G/DL (3.4-5.0) L Globulin 3.9 g/dL Albumin/Globulin Ratio 0.7 (1.0-2.7) L Seun Kaye MD Jun 22, 2019 20:02
[2019-06-22] MEDS: Morphine Sulfate 2mg/ml Inj(IV/IM USE ONLY) IVP PRN (22:00)
--- NOTE | 2019-06-22 23:45 | Consultation ---
DATE OF CONSULTATION: 06/22/2019 CARDIOLOGY CONSULTATION CONSULTING PHYSICIAN: Seun Kaye M.D. REFERRING PHYSICIAN: Emre Trejo M.D. REASON FOR REFERRAL: Chest pain. HISTORY OF PRESENT ILLNESS: This is a 78-year-old female with history of recurrent bouts of chest pain previously who has had hospitalizations at [facility] previously for this pain. She comes in with recurrent pain in the chest and with occasional numbness and tingling sensation in the left arm and fingers. These episodes last only for a few minutes, not really exercise related, most of the time occur with rest and sometimes they occur with activities, sometimes the two symptoms of left arm pain and chest pain occur together, sometimes either one or the other occurs, but these symptoms according to the patient are similar what she has had before. She does not have to stop her activities because of this chest pain, she does not have to stop her activities because of shortness of breath, although she walks with the help of a walker. There is no PND or orthopnea. She has no dizziness or lightheadedness on standing. PAST MEDICAL HISTORY: Positive for diabetes. She has a history of several hospitalizations for chest pains. Apparently, she has hypertension, diabetes mellitus, frequent falls, degenerative disk disease, hypertensive urgency, vitreous hemorrhage of the right eye, knee contusion, ankle sprain, depression, elevated ALT, noncardiac chest pain, hyperlipidemia, anxiety disorder, acute stress reaction. ALLERGIES: She is allergic to codeine and sulfa. SOCIAL HISTORY: She does not smoke or drink alcoholic beverages at the present time. REVIEW OF SYSTEMS: GASTROINTESTINAL: Negative. GENITOURINARY: Negative. She is incontinent at night, she says. PULMONARY: She has some mild cough with some mucus that is only occurring while she is in the hospital, she contributed to medications she has been given. NEUROLOGIC: As mentioned in the HPI. PHYSICAL EXAMINATION: GENERAL: Shows to be an elderly female, in no apparent respiratory distress. She is obese. NECK: Supple. No jugular venous distention. LUNGS: Clear to auscultation and percussion. CARDIAC: Showed S1 is normal. S2 is normal. Regular rate and rhythm. No heaves, thrills, gallops, or rubs noted. ABDOMEN: Soft, obese. Positive bowel sounds. EXTREMITIES: There is no clubbing, cyanosis, or edema. NEUROLOGIC: She is awake, alert, responsive, and in no apparent distress. LABORATORY AND DIAGNOSTIC DATA: White count of 3.9, hemoglobin 11, and platelet count of 208. Sodium 138, potassium 4.5, chloride 104, bicarb 26, BUN is 16, creatinine 1.2, and glucose of 357. A1c was 8.9 previously, this was on 06/21/2019, yesterday, and calcium is 8.4. Troponin 0.039, 0.038, and albumin of 2.9, and a chest x-ray that was performed 2 days ago shows no acute disease processes. Her EKG shows a normal sinus rhythm, normal QRS axis, no ST or T-wave abnormalities of any significant degree, and echocardiogram preliminary report shows ejection fraction of 60 to 65%, no significant valvular regurgitation. ASSESSMENT AND PLAN: 1. Atypical chest pain. 2. Diabetes mellitus, poor control. 3. Hypertension. 4. 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 5. Diabetic retinopathy. 6. History of hypertension. Dr. Trejo, this patient was seen in cardiac consultation. There is no evidence of myonecrosis. The EKGs are unremarkable on prior evaluations. The patient has had a stress test on prior occasions and apparently nothing abnormal has been found. Nevertheless, I think since the patient does not recall where her last stress test was performed, I have recommended that she undergo a myocardial perfusion imaging. She does not want to do the injectable medication here. Therefore, we will attempt to do it with the exercise test with conversion to a stress test to be done at [facility] in the future. The patient is agreeable with that plan. I will arrange for that when she does present to the office in followup. Her blood pressure is relatively on the high side and her medications including Norvasc 10 mg, maximum dose as well as hydralazine 50 mg 3 times a day and hydrochlorothiazide 25 mg daily should be continued. I think an addition of an ARB is in order, and she should be continued on the dose of statin in light of the fact that she has diabetes, and depending on her response to these medications, others may be added in the near future. The patient may be discharged otherwise home with followup as an outpatient for stress testing. Seun Kaye M.D. DR: GIBRAN JOB#: [id number] CC:
[2019-06-23] MEDS: NovoLOG Insulin Flexpen SUBQ SCH ×3 (06:30→16:32)
[2019-06-23] MEDS: Heparin 5000 units/ml inj SUBQ SCH ×2 (07:15→14:16)
[2019-06-23 07:25] LABS: HEMATOCRIT 35.8 % (37.0-47.0); MEAN CORPUSCULAR VOLUME 93 FL (80-99); PLATELET COUNT 222 K/UL (150-450); RED BLOOD COUNT 3.86 M/UL (4.20-5.40); RED CELL DISTRIBUTION WIDTH 12.2 % (11.6-14.8); WHITE BLOOD COUNT 3.4 K/UL (4.8-10.8)
[2019-06-23 07:54] LABS: ANION GAP 8 mmol/L (5-15); BLOOD UREA NITROGEN 20 mg/dL (7-18); CALCIUM 8.7 MG/DL (8.5-10.1); CARBON DIOXIDE 28 MMOL/L (21-32); CHLORIDE 101 MMOL/L (98-107); CREATININE 1.2 MG/DL (0.55-1.30); POTASSIUM 4.4 MMOL/L (3.5-5.1); SODIUM 137 MMOL/L (136-145)
[2019-06-23 08:00] VITALS: BP 135/68
--- NOTE | 2019-06-23 08:26 | NUR ---
HAND-OFF: Report given to PATSY Hanley.
--- NOTE | 2019-06-23 08:27 | NUR ---
NURSE NOTES: Received report from PATSY Pina. Patient is awake lying semi-sy's; resting comfortably. No signs of acute distress noted; denies pain at this time. On RA, AOx4; able to make needs known. IV is intact and patent. No erythema, bleeding, or infiltration noted. Bed at lowest position, brakes on, siderails up x3. Call light within reach. Will continue with them plan of care.
[2019-06-23] MEDS: Docusate 100mg cap ORAL SCH ×2 (09:01→18:20)
[2019-06-23] MEDS: Aspirin EC 81mg tab ORAL SCH (09:02)
[2019-06-23] MEDS: HydrALAZINE 50mg tab ORAL SCH ×3 (09:02→18:20)
--- NOTE | 2019-06-23 10:47 | Internal Med Progress Note ---
Subjective Date of Service: Jun 23, 2019 Physician Name Isael Hutton Attending Physician Emre Trejo MD Current Medications Medications (Trade) Dose Ordered Sig/Hever Route PRN Reason Start Time Stop Time Status Last Admin Dose Admin Acetaminophen/ Hydrocodone Bitart ([place] 5/325) 1 tab Q6H PRN ORAL For Pain 06/20/19 18:45 06/27/19 18:44 06/22/19 05:26 Amlodipine Besylate (Norvasc) 10 mg DAILY ORAL 06/21/19 09:00 07/21/19 08:59 06/23/19 09:02 Aspirin (Ecotrin) 81 mg DAILY ORAL 06/21/19 09:00 07/21/19 08:59 06/23/19 09:02 Carisoprodol (Soma) 350 mg Q6H PRN ORAL Muscle Spasm 06/20/19 18:45 07/20/19 18:44 Clonidine HCl (Catapres Tab) 0.1 mg Q6H PRN ORAL For High Blood Pressure 06/20/19 18:45 07/20/19 18:44 06/20/19 20:22 Dextrose (Dextrose 50%) 25 ml Q30M PRN IV Hypoglycemia 06/20/19 18:45 07/20/19 18:44 Dextrose (Dextrose 50%) 50 ml Q30M PRN IV Hypoglycemia 06/20/19 18:45 07/20/19 18:44 Docusate Sodium (Colace) 100 mg BID ORAL 06/21/19 09:00 07/21/19 08:59 06/23/19 09:01 Ferrous Sulfate (Feosol) 325 mg BID ORAL 06/21/19 09:00 07/21/19 08:59 06/23/19 09:01 Heparin Sodium (Porcine) (Heparin 5000 units/ml) 5,000 units EVERY 8 HOURS SUBQ 06/20/19 22:00 07/20/19 21:59 06/23/19 07:15 Hydralazine HCl (Apresoline) 50 mg TID ORAL 06/21/19 09:00 07/21/19 08:59 06/23/19 09:02 Hydrochlorothiazide (Hydrodiuril) 25 mg DAILY ORAL 06/21/19 09:00 07/21/19 08:59 06/23/19 09:01 Insulin Aspart (NovoLOG) BEFORE MEALS AND HS SUBQ 06/20/19 21:00 07/20/19 20:59 06/23/19 06:30 Irbesartan (Avapro) 75 mg DAILY ORAL 06/22/19 20:15 07/22/19 20:14 06/23/19 09:01 Lansoprazole (Prevacid) 30 mg DAILY ORAL 06/21/19 09:00 07/21/19 08:59 06/23/19 09:01 Magnesium Hydroxide (Mom) 30 ml HSPRN PRN ORAL Constipation 06/22/19 20:00 07/22/19 19:59 Morphine Sulfate (Morphine Sulfate) 2 mg Q4H PRN IVP Chest Pain 06/20/19 18:45 06/27/19 18:44 06/22/19 22:00 Nitroglycerin (Ntg) 0.4 mg Q5M PRN SL Prn Chest Pain 06/20/19 18:45 07/20/19 18:44 Zolpidem Tartrate (Ambien) 5 mg HSPRN PRN ORAL Insomnia 06/20/19 18:45 06/27/19 18:44 Allergies: Coded Allergies: CODEINE (Verified Allergy, Mild, Itching, 08/26/13) SULFA (SULFONAMIDE ANTIBIOTICS) (Verified Adverse Reaction, Mild, 08/26/13) VOMIT ROS Limited/Unobtainable: No Constitutional: Reports: no symptoms HEENT: Reports: no symptoms Cardiovascular: Reports: chest pain Respiratory: Reports: no symptoms Gastrointestinal/Abdominal: Reports: no symptoms Genitourinary: Reports: no symptoms Neurologic/Psychiatric: Reports: no symptoms Subjective 78 YO F admitted with chest pain. Cover for Int Quang-Dr Trejo. Refused pharmacologic stress test Objective Last Vital Signs Date Time Temp Pulse Resp B/P (MAP) Pulse Ox O2 Delivery O2 Flow Rate FiO2 06/23/19 09:02 136/68 06/23/19 09:02 81 06/22/19 21:00 Room Air 06/22/19 20:00 98.4 20 95 Laboratory Tests Test 06/23/19 06:37 White Blood Count 3.4 K/UL (4.8-10.8) L Red Blood Count 3.86 M/UL (4.20-5.40) L Hemoglobin 12.0 G/DL (12.0-16.0) Hematocrit 35.8 % (37.0-47.0) L Mean Corpuscular Volume 93 FL (80-99) Mean Corpuscular Hemoglobin 31.2 PG (27.0-31.0) H Mean Corpuscular Hemoglobin Concent 33.6 G/DL (32.0-36.0) Red Cell Distribution Width 12.2 % (11.6-14.8) Platelet Count 222 K/UL (150-450) Mean Platelet Volume 6.3 FL (6.5-10.1) L Neutrophils (%) (Auto) % (45.0-75.0) Lymphocytes (%) (Auto) % (20.0-45.0) Monocytes (%) (Auto) % (1.0-10.0) Eosinophils (%) (Auto) % (0.0-3.0) Basophils (%) (Auto) % (0.0-2.0) Differential Total Cells Counted 100 Neutrophils % (Manual) 58 % (45-75) Lymphocytes % (Manual) 34 % (20-45) Monocytes % (Manual) 6 % (1-10) Eosinophils % (Manual) 2 % (0-3) Basophils % (Manual) 0 % (0-2) Band Neutrophils 0 % (0-8) Platelet Estimate Adequate Platelet Morphology Normal Red Blood Cell Morphology Normal Sodium Level 137 MMOL/L (136-145) Potassium Level 4.4 MMOL/L (3.5-5.1) Chloride Level 101 MMOL/L (98-107) Carbon Dioxide Level 28 MMOL/L (21-32) Anion Gap 8 mmol/L (5-15) Blood Urea Nitrogen 20 mg/dL (7-18) H Creatinine 1.2 MG/DL (0.55-1.30) Estimat Glomerular Filtration Rate mL/min (>60) Glucose Level 318 MG/DL (74-106) H Calcium Level 8.7 MG/DL (8.5-10.1) Intake and Output 06/22/19 06/23/19 19:00 07:00 Intake Total 520 ml 140 ml Output Total 900 ml Balance -380 ml 140 ml Intake Oral 520 ml 140 ml Output Urine Total 900 ml # Voids 3 Objective PHYSICAL EXAMINATION: GENERAL: The patient is a well-developed, well-nourished female, in no apparent distress. HEENT: Eyes, pupils equal and responsive to light and accommodation. Extraocular movements are intact. NECK: Supple without lymphadenopathy. CHEST: Lungs are clear to auscultation bilaterally without wheezes or rales. CARDIOVASCULAR: Regular rhythm and rate. S1 and S2 are normal without murmurs, rubs, or gallops. ABDOMEN: Soft, nontender, and nondistended. Positive bowel sounds. No evidence of hepatosplenomegaly. Currently, no rebound or guarding noted. EXTREMITIES: Negative for clubbing, cyanosis, or edema. RECTAL/GENITAL: Not performed. NEUROLOGIC: Cranial nerves II through XII are grossly intact without focal deficits. Motor strength is 5/5 bilaterally. Deep tendon reflexes are 2+ plantar. Assessment/Plan Assessment/Plan ASSESSMENT: This is a 78-year-old female with: 1. Chest pain. 2. Hypertension. 3. Diabetes type 2. 4. Hypercholesterlemia TREATMENT: 1. Chest pain. Patient refused pharmacologic stress test. A Cardiology consultation has been obtained with Dr. Seun Kaye. Serial troponin levels will be performed. An echocardiogram LVEF=60-65%. We will follow recommendations of Cardiology. 2. Hypertension. Continue amlodipine, clonidine, hydrochlorothiazide, hydralazine as above. 3. Diabetes type 2. NovoLog sliding scale has been instituted. 4. Hypercholesterolemia. Continue atorvastatin as above. Isael Hutton MD Jun 23, 2019 10:47
[2019-06-23 12:00] VITALS: BP 154/79
--- NOTE | 2019-06-23 12:12 | Pulmonology Progress Note ---
Assessment/Plan Problems: (1) ACS (acute coronary syndrome) (2) Diabetes mellitus (3) Hypertension (4) Major depression (5) DDD (degenerative disc disease), lumbar Assessment/Plan troponins are negative echo cardio consult reviewed stress study will be scheduled as out patient sliding scale diabetic diet dvt prophylaxis. Subjective ROS Limited/Unobtainable: No Interval Events: doing better Allergies: Coded Allergies: CODEINE (Verified Allergy, Mild, Itching, 08/26/13) SULFA (SULFONAMIDE ANTIBIOTICS) (Verified Adverse Reaction, Mild, 08/26/13) VOMIT Objective Last 24 Hour Vital Signs Date Time Temp Pulse Resp B/P (MAP) Pulse Ox O2 Delivery O2 Flow Rate FiO2 06/23/19 09:02 136/68 06/23/19 09:02 81 136/68 06/23/19 09:01 136/68 06/23/19 04:00 74 06/23/19 00:00 96 06/22/19 22:00 135/65 06/22/19 21:00 Room Air 06/22/19 20:00 98.4 71 20 135/65 (88) 95 06/22/19 20:00 79 06/22/19 17:09 155/64 06/22/19 16:00 74 06/22/19 16:00 98.2 72 19 155/64 (94) 97 06/22/19 12:30 153/73 Intake and Output 06/22/19 06/23/19 18:59 06:59 Intake Total 520 ml Output Total 900 ml Balance -380 ml Intake Oral 520 ml Output Urine Total 900 ml # Voids 3 General Appearance: WD/WN HEENT: normocephalic, atraumatic Respiratory/Chest: chest wall non-tender, lungs clear, normal breath sounds Breasts: no masses Cardiovascular: normal peripheral pulses, normal rate Abdomen: normal bowel sounds, soft, non tender Genitourinary: normal external genitalia Extremities: no cyanosis Skin: no lesions Neurologic/Psychiatric: program manager transportation II-XII grossly normal Lymphatic: no neck adenopathy Laboratory Tests 06/23/19 06:37: White Blood Count 3.4L, Red Blood Count 3.86L, Hemoglobin 12.0, Hematocrit 35.8L , Mean Corpuscular Volume 93, Mean Corpuscular Hemoglobin 31.2H, Mean Corpuscular Hemoglobin Concent 33.6, Red Cell Distribution Width 12.2, Platelet Count 222, Mean Platelet Volume 6.3L, Neutrophils (%) (Auto) , Lymphocytes (%) ( Auto) , Monocytes (%) (Auto) , Eosinophils (%) (Auto) , Basophils (%) (Auto) , Differential Total Cells Counted 100, Neutrophils % (Manual) 58, Lymphocytes % ( Manual) 34, Monocytes % (Manual) 6, Eosinophils % (Manual) 2, Basophils % ( Manual) 0, Band Neutrophils 0, Platelet Estimate Adequate, Platelet Morphology Normal, Red Blood Cell Morphology Normal, Sodium Level 137, Potassium Level 4.4 , Chloride Level 101, Carbon Dioxide Level 28, Anion Gap 8, Blood Urea Nitrogen 20H, Creatinine 1.2, Estimat Glomerular Filtration Rate , Glucose Level 318H, Calcium Level 8.7 Current Medications Medications (Trade) Dose Ordered Sig/Hever Route PRN Reason Start Time Stop Time Status Last Admin Dose Admin Acetaminophen/ Hydrocodone Bitart ([place] 5/325) 1 tab Q6H PRN ORAL For Pain 06/20/19 18:45 06/27/19 18:44 06/22/19 05:26 Amlodipine Besylate (Norvasc) 10 mg DAILY ORAL 06/21/19 09:00 07/21/19 08:59 06/23/19 09:02 Aspirin (Ecotrin) 81 mg DAILY ORAL 06/21/19 09:00 07/21/19 08:59 06/23/19 09:02 Carisoprodol (Soma) 350 mg Q6H PRN ORAL Muscle Spasm 06/20/19 18:45 07/20/19 18:44 Clonidine HCl (Catapres Tab) 0.1 mg Q6H PRN ORAL For High Blood Pressure 06/20/19 18:45 07/20/19 18:44 06/20/19 20:22 Dextrose (Dextrose 50%) 25 ml Q30M PRN IV Hypoglycemia 06/20/19 18:45 07/20/19 18:44 Dextrose (Dextrose 50%) 50 ml Q30M PRN IV Hypoglycemia 06/20/19 18:45 07/20/19 18:44 Docusate Sodium (Colace) 100 mg BID ORAL 06/21/19 09:00 07/21/19 08:59 06/23/19 09:01 Ferrous Sulfate (Feosol) 325 mg BID ORAL 06/21/19 09:00 07/21/19 08:59 06/23/19 09:01 Heparin Sodium (Porcine) (Heparin 5000 units/ml) 5,000 units EVERY 8 HOURS SUBQ 06/20/19 22:00 07/20/19 21:59 06/23/19 07:15 Hydralazine HCl (Apresoline) 50 mg TID ORAL 06/21/19 09:00 07/21/19 08:59 06/23/19 09:02 Hydrochlorothiazide (Hydrodiuril) 25 mg DAILY ORAL 06/21/19 09:00 07/21/19 08:59 06/23/19 09:01 Insulin Aspart (NovoLOG) BEFORE MEALS AND HS SUBQ 06/20/19 21:00 07/20/19 20:59 06/23/19 06:30 Irbesartan (Avapro) 75 mg DAILY ORAL 06/22/19 20:15 07/22/19 20:14 06/23/19 09:01 Lansoprazole (Prevacid) 30 mg DAILY ORAL 06/21/19 09:00 07/21/19 08:59 06/23/19 09:01 Magnesium Hydroxide (Mom) 30 ml HSPRN PRN ORAL Constipation 06/22/19 20:00 07/22/19 19:59 Morphine Sulfate (Morphine Sulfate) 2 mg Q4H PRN IVP Chest Pain 06/20/19 18:45 06/27/19 18:44 06/22/19 22:00 Nitroglycerin (Ntg) 0.4 mg Q5M PRN SL Prn Chest Pain 06/20/19 18:45 07/20/19 18:44 Zolpidem Tartrate (Ambien) 5 mg HSPRN PRN ORAL Insomnia 06/20/19 18:45 06/27/19 18:44 Anna Mckeon MD Jun 23, 2019 12:12
[2019-06-23 16:00] VITALS: BP 144/71
[2019-06-23 18:20] VITALS: BP 144/71
--- NOTE | 2019-06-23 18:47 | NUR ---
NURSE NOTES: Patient is discharged home per doctors order. Al discharge protocols followed and documented. Patient belongings list inventoried, signed by patient and nurse. IV removed, no redness, no infiltration noted. monitoring analyst removed. Patient is in stable condition.
--- NOTE | 2019-06-24 15:51 | Discharge Summary ---
Discharge Summary Discharge Summary _ DATE OF ADMISSION: 06/20/2019 DATE OF DISCHARGE: 06/23/2019 DISCHARGED BY: Dr. balderrama REASON FOR ADMISSION: [] 78 years old female with past medical history of hypertension, diabetes mellitus, frequent falls at home, degenerative disc disease, presented to emergency department with chief complaint of left upper chest and shoulder pain. Patient was admitted to rule out acute coronary syndrome. Upon evaluation in the emergency room troponin was negative. Potassium 5.2 glucose 343 stable renal parameters Albumin 2.9 no leukocytosis stable hemoglobin hematocrit EKG revealed sinus rhythm no acute ischemic changes patient subsequently admitted for acute coronary syndrome patient admitted to telemetry floor. Opener Tender and work station support specialist followed. CONSULTANTS: crystallography teacher Dr. Kaye neurologist pulmonary/critical care Dr. the Robbie PATE specialist GI specialist electronic design engineer manual equipment mechanic/oncologist surgery psychiatrist HOSPITAL COURSE: [] Patient admitted to telemetry floor. Opener Tender and work station support specialist followed. Echocardiogram revealed preserved ejection fraction of 60 to 65% with no evidence of left ventricular hypertrophy. No evidence of pericardial effusion. No evidence of wall motion abnormality. Right ventricular systolic pressure of 17. Serial troponins were negative. EKG revealed no acute ischemic changes. No changes on the telemetry patient was ruled out for acute coronary syndrome. Lipid panel was stable. Chest x-ray revealed no acute cardiopulmonary pathology. Pulsoxymeter remained stable on room air. Antiplatelet therapy with aspirin continued. Blood pressure was managed with multiple antihypertensive regimen including Avapro, calcium channel nuvia and hydrochlorothiazide. And hydralazine. DVT and GI prophylaxis provided. Blood sugar was managed with a sliding scale of insulin. Pain management was addressed as needed nitroglycerin was on board hemoglobin A1c 8.9 clearly not at goal. Patient need further optimization of anti- glycemic regimen as outpatient. Patient declined Cardiolite stress test. ARB was added for blood pressure control antihypertensive medication regimen was optimized. Statin was resumed. Patient to follow-up with a crystallography teacher as outpatient for stress test. Supportive care provided. Bowel regimen instituted. Patient clinically stabilized and was ready for discharge FINAL DIAGNOSES: Chest pain Possible acute coronary syndrome 1. [] Diabetes mellitus not well controlled hemoglobin A1c 8.9 Hypercholesterolemia Hypertension DJD Major depression DISCHARGE MEDICATIONS: See Medication Reconciliation list. DISCHARGE INSTRUCTIONS: [] Patient was discharged home I have been assigned to dictate discharge summary for this account. I was not involved in the patient's management. Tami Ortega NP Jun 24, 2019 15:51
== END 2019-06-23 18:50 | disposition home or self-care (01) | DRG 311 ==
LOC: EDBD 12:39 → EDBEDREQ 13:06 → EMR 13:22 → 2E 13:31 → EDBEDREQ 14:03 → 2E 20:08
DX: I24.9 Acute ischemic heart disease, unspecified (principal); E11.319 Type 2 diabetes mellitus with unspecified diabetic retinopathy without macular edema; F32.9 Major depressive disorder, single episode, unspecified; M51.36 Other intervertebral disc degeneration, lumbar region; Z79.82 Long term (current) use of aspirin; Z79.4 Long term (current) use of insulin; Z88.6 Allergy status to analgesic agent; Z88.2 Allergy status to sulfonamides; R29.6 Repeated falls; E78.00 Pure hypercholesterolemia, unspecified; I10 Essential (primary) hypertension; M19.90 Unspecified osteoarthritis, unspecified site; F41.8 Other specified anxiety disorders; E11.65 Type 2 diabetes mellitus with hyperglycemia; Z86.73 Personal history of transient ischemic attack (TIA), and cerebral infarction without residual deficits
CPT/HCPCS: 36415; 71045; 80048; 80053; 80061; 82550; 82962; 83036; 83690; 83735; 84100; 84484; 85007; 85025; 85651; 93005; 93306; 99285; J1815

== ENCOUNTER 2020-03-16 19:11 | Emergency (ER) | payer MEDICARE, OTHER ==
[~2020-03-16] VITALS: Ht 172.7 cm; Wt 95.3 kg
[~2020-03-16 19:11] MED LIST changes: +CATAPRES0.1 MG ORAL; +JANUMET 50-5001 EACH ORAL; +LIDOCAINE5 GM TP; +LIDODERM700 M1 TOPIC; +LYRICA75 M1 ORAL; +NOVOLIN R100 UNIT/1 SUBQ; +REPLESTA50000 UNIT PO; +VITAMIN C500 M1 ORAL
[2020-03-16 20:00] VITALS: BP 244/144
[2020-03-16] MEDS ORDERED: Ketorolac 30mg Inj IV ONE (20:00)
--- NOTE | 2020-03-16 20:05 | NUR ---
ED Nurse Note: Connected elfego the hall monitor. IV inserted RFA 22G and draw labs. BP 224/144. pain meds given. Blood Glucose 214.
[2020-03-16 20:11] LABS: BASOPHILS % (AUTO) 1.9 % (0.0-2.0); EOSINOPHILS % (AUTO) 3.8 % (0.0-3.0); HEMOGLOBIN 11.3 G/DL (12.0-16.0); LYMPHOCYTES % (AUTO) 42.6 % (20.0-45.0); MEAN CORPUSCULAR VOLUME 94 FL (80-99); MONOCYTES % (AUTO) 9.3 % (1.0-10.0); NEUTROPHILS % (AUTO) 42.4 % (45.0-75.0); PLATELET COUNT 225 K/UL (150-450); RED BLOOD COUNT 3.84 M/UL (4.20-5.40); RED CELL DISTRIBUTION WIDTH 12.8 % (11.6-14.8); WHITE BLOOD COUNT 4.7 K/UL (4.8-10.8)
[2020-03-16] MEDS ORDERED: HydrALAZINE 50mg tab ORAL ONE (20:15)
[2020-03-16 20:23] LABS: CALCIUM 8.6 MG/DL (8.5-10.1); CREATININE 1.2 MG/DL (0.55-1.30); POTASSIUM 4.2 MMOL/L (3.5-5.1)
[2020-03-16 20:27] LABS: ALBUMIN 3.1 G/DL (3.4-5.0); ALBUMIN/GLOBULIN RATIO 0.9 (1.0-2.7); BILIRUBIN,TOTAL 0.2 MG/DL (0.2-1.0)
--- NOTE | 2020-03-16 20:27 | NUR ---
ED Nurse Note: BP PO meds given. 195/65 SB on threat monitoring analyst. Safety measures observed and no acute distress noted. Will continue to monitor.
[2020-03-16 20:37] VITALS: BP 186/76
[2020-03-16 20:45] VITALS: BP 216/75
[2020-03-16 20:57] VITALS: BP 192/71
--- NOTE | 2020-03-16 21:01 | NUR ---
ED Nurse Note: Pt lerft for CT abs/pelvis
--- NOTE | 2020-03-16 21:20 | NUR ---
ED Nurse Note: Came back from CT. Re-connect to panel monitor.
--- NOTE | 2020-03-16 21:26 | Diagnostic Imaging Report ---
EXAM: CT Abdomen and Pelvis Without Intravenous Contrast CLINICAL HISTORY: PAIN TECHNIQUE: Axial computed tomography images of the abdomen and pelvis without intravenous contrast. CTDI is 19.5 mGy and DLP is 989.0 mGy-cm. One or more of the following dose reduction techniques were used: automated exposure control, adjustment of the mA and/or kV according to patient size, use of iterative reconstruction technique. COMPARISON: 03/05/2019. FINDINGS: Lung bases: Minimal subsegmental atelectasis at the lung bases. Atypical pneumonias cannot be entirely excluded but are felt to be unlikely. Pleural space: No pleural effusions. Heart: Heart is normal in size. Mediastinum: Moderate sized hiatal hernia. Probable distal esophagitis. ABDOMEN: Liver: Diffuse fatty infiltration of the liver is noted. Gallbladder and bile ducts: The patient is status post cholecystectomy. No ductal dilation. Pancreas: See below. Spleen: Spleen is normal in contour. Adrenals: The adrenal glands, the head, body, tail of the pancreas are unremarkable. Kidneys and ureters: Minimal nonspecific stranding about the perinephric spaces without hydronephrosis. Stomach and bowel: Moderate quantity of stool throughout the colon. No evidence of bowel obstruction. No mucosal thickening. PELVIS: Appendix: Appendix is seen on coronal image 63 and is unremarkable. Bladder: Unremarkable. No stones. Reproductive: Unremarkable as visualized. ABDOMEN and PELVIS: Intraperitoneal space: Unremarkable. No free air. No significant fluid collection. Bones/joints: Moderate degenerative disc disease of the thoracolumbar spine. Moderate to severe osteoarthritic changes about the sacroiliac joints. Grade 1 anterolisthesis of L3 upon L4 vertebral body. The sacrum and coccyx are unremarkable. No acute fracture. No dislocation. Soft tissues: Subcutaneous haziness anteriorly mid abdomen. Is there a history of chronic injections the anterior abdominal wall?. Alternatively, cellulitis should be considered. This is felt to be less likely. Ischiorectal fat is clean. Vasculature: Atherosclerotic disease of the abdominal aorta without change in caliber. No abdominal aortic aneurysm. Lymph nodes: No pelvic or inguinal lymphadenopathy. Best seen on axial image 81 and 0.0 image 36, minimal central shotty mesenteric lymph nodes are noted with some haziness in the mesentery. Other findings: Multilevel vacuum discs are noted IMPRESSION: 1. Mild central mesenteric adenitis of uncertain etiology. There is a nonspecific finding which requires clinical correlation. 2. Hiatal hernia. 3. Probable distal esophagitis. 4. Status post cholecystectomy. 5. Nonspecific stranding about the perinephric spaces. 6. No bowel obstruction. 7. The appendix is unremarkable.
--- NOTE | 2020-03-16 22:09 | Emergency Room Report ---
History of Present Illness General Chief Complaint: Abdominal Pain Source: Patient Present Illness HPI The patient states that she has had left-sided abdominal pain for a few months but her symptoms have worsened over the past few days. She denies that the pain radiates to her back. She denies dysuria or hematuria. She denies recent illness. She denies fever chills. She denies nausea or vomiting. She denies trauma. She has no other complaints. Allergies: Coded Allergies: CODEINE (Verified Allergy, Mild, Itching, 08/26/13) SULFA (SULFONAMIDE ANTIBIOTICS) (Verified Adverse Reaction, Mild, 08/26/13) VOMIT COVID-19 Screening Contact w/high risk pt: No Experienced COVID-19 symptoms?: No COVID-19 Testing performed CUSTOMER RETENTION REPRESENTATIVE: No Patient History Past Medical History: see triage record, DM, HTN, SC, CAD, CHF, GERD Past Surgical History: reginald carroll Social History: Denies: smoking, alcohol use, drug use Last Menstrual Period: unk Now: No : 1 Para: 1 Reviewed Nursing Documentation: PMH: Agreed; PSxH: Agreed Nursing Documentation-PMH Past Medical History: No History, Except For Hx Cardiac Problems: Yes - CHF Hx Hypertension: Yes Hx Diabetes: Yes Hx Cancer: No Hx Gastrointestinal Problems: Yes - GERD Hx Neurological Problems: Yes - Degenerative disc disease Hx Memory Loss: Yes Hx Dizziness: Yes Hx Syncope: Yes Hx Headaches: Yes Hx Weakness: Yes Hx Neurologic Surgery: No Hx Brain Shunt: No Review of Systems All Other Systems: negative except mentioned in HPI Physical Exam Vital Signs Date Time Temp Pulse Resp B/P (MAP) Pulse Ox O2 Delivery O2 Flow Rate FiO2 03/16/20 19:11 98.1 64 18 222/89 (133) 96 Room Air Sp02 EP Interpretation: reviewed, normal General Appearance: no apparent distress, alert, GCS 15, non-toxic Head: normocephalic, atraumatic Eyes: bilateral eye normal inspection, bilateral eye PERRL ENT: hearing grossly normal, normal pharynx, no angioedema, normal voice Neck: full range of motion, supple/symm/no masses Respiratory: chest non-tender, lungs clear, normal breath sounds, no respiratory distress, no retraction, no accessory muscle use, speaking full sentences Cardiovascular #1: regular rate, rhythm, no edema Gastrointestinal: normal bowel sounds, soft, non-distended, no guarding, no rebound, tenderness - TTP over the LLQ Rectal: deferred Musculoskeletal: back normal, normal range of motion, gait/station normal, non- tender Neurologic: alert, motor strength/tone normal, oriented x3, sensory intact, responsive, speech normal Psychiatric: judgement/insight normal, memory normal, mood/affect normal, no suicidal/homicidal ideation Skin: no rash, normal color Medical Decision Making Diagnostic Impression: Primary Impression: Abdominal pain Additional Impression: Constipation ER Course This patient presented with abdominal pain and left lower quadrant tenderness on exam. I felt that I should rule out diverticulitis or other colonic etiology. The patient underwent CT of the abdomen pelvis. This did show a large stool burden but otherwise only showed nonspecific and nonemergent findings. Also with a mild mesenteric adenitis. This could be viral. Regardless, no emergency etiology was identified. The patient was unable to give a urinalysis and states that she does not she believes she currently has an urinary tract infection because she was recently treated for 1 and feels fine. The patient did mention some stressors related to her home. She states her daughter and her grandchild are living with her and it has been difficult for her. Overall, the patient's evaluation is benign. The patient is given close return precautions and follow- up instructions. Laboratory Tests Test 03/16/20 19:55 White Blood Count 4.7 K/UL (4.8-10.8) L Red Blood Count 3.84 M/UL (4.20-5.40) L Hemoglobin 11.3 G/DL (12.0-16.0) L Hematocrit 36.0 % (37.0-47.0) L Mean Corpuscular Volume 94 FL (80-99) Mean Corpuscular Hemoglobin 29.6 PG (27.0-31.0) Mean Corpuscular Hemoglobin Concent 31.5 G/DL (32.0-36.0) L Red Cell Distribution Width 12.8 % (11.6-14.8) Platelet Count 225 K/UL (150-450) Mean Platelet Volume 7.1 FL (6.5-10.1) Neutrophils (%) (Auto) 42.4 % (45.0-75.0) L Lymphocytes (%) (Auto) 42.6 % (20.0-45.0) Monocytes (%) (Auto) 9.3 % (1.0-10.0) Eosinophils (%) (Auto) 3.8 % (0.0-3.0) H Basophils (%) (Auto) 1.9 % (0.0-2.0) Sodium Level 137 MMOL/L (136-145) Potassium Level 4.2 MMOL/L (3.5-5.1) Chloride Level 103 MMOL/L (98-107) Carbon Dioxide Level 27 MMOL/L (21-32) Anion Gap 7 mmol/L (5-15) Blood Urea Nitrogen 14 mg/dL (7-18) Creatinine 1.2 MG/DL (0.55-1.30) Estimated Glomerular Filtration Rate 52.8 mL/min (>60) Glucose Level 232 MG/DL (74-106) H Calcium Level 8.6 MG/DL (8.5-10.1) Total Bilirubin 0.2 MG/DL (0.2-1.0) Aspartate Amino Transferase (AST) 17 U/L (15-37) Alanine Aminotransferase (ALT) 15 U/L (12-78) Alkaline Phosphatase 113 U/L (46-116) Total Protein 6.4 G/DL (6.4-8.2) Albumin 3.1 G/DL (3.4-5.0) L Globulin 3.3 g/dL Albumin/Globulin Ratio 0.9 (1.0-2.7) L Lipase 130 U/L (73-393) CT/MRI/US Diagnostic Results CT/MRI/US Diagnostic Results : Imaging Test Ordered: CT abd/pelvis Impression IMPRESSION: 1. Mild central mesenteric adenitis of uncertain etiology. There is a nonspecific finding which requires clinical correlation. 2. Hiatal hernia. 3. Probable distal esophagitis. 4. Status post cholecystectomy. 5. Nonspecific stranding about the perinephric spaces. 6. No bowel obstruction. 7. The appendix is unremarkable. Last Vital Signs Date Time Temp Pulse Resp B/P (MAP) Pulse Ox O2 Delivery O2 Flow Rate FiO2 03/16/20 20:57 98.1 57 18 192/71 96 Room Air Status: improved Disposition: HOME, SELF-CARE Condition: Improved Referrals: Emre Trejo MD (PCP) Patient Instructions: Abdominal Pain, Adult MannantonioRoselyn Ramiro DO Mar 16, 2020 22:09
[2020-03-16] MEDS ORDERED: COLACE100 MG ORAL (22:12)
[2020-03-16] MEDS ORDERED: MIRALAX17 G2 ORAL (22:12)
[2020-03-16 22:30] VITALS: BP 192/71
--- NOTE | 2020-03-16 22:30 | NUR ---
ER DISCHARGE NOTE: Patient is cleared to be discharged per ERMD, pt is aox4, on room air, with stable vital signs. pt was given dc and prescription instructions, pt was able to verbalize understanding, pt id band and iv site removed without complications. pt is able to ambulate with steady gait. pt took all belongings.
== END 2020-03-16 22:10 | disposition home or self-care (01) ==
LOC: EMR 20:00
DX: R10.32 Left lower quadrant pain (principal); K59.00 Constipation, unspecified; I11.0 Hypertensive heart disease with heart failure; I50.9 Heart failure, unspecified; Z88.5 Allergy status to narcotic agent; Z88.2 Allergy status to sulfonamides
CPT/HCPCS: 36415; 74176; 80053; 83690; 85025; 96374; 99284; J1885

== ENCOUNTER 2020-06-11 03:16 | Inpatient (IN) | payer MEDICARE, OTHER ==
[~2020-06-11] VITALS: Ht 172.7 cm; Wt 90.7 kg
[2020-06-11] VITALS (8 sets, daily range): BP systolic 111–196; BP diastolic 48–105
[~2020-06-11 03:16] MED LIST changes: +COLACE100 MG ORAL; +MIRALAX17 G2 ORAL
--- NOTE | 2020-06-11 03:38 | Emergency Room Report ---
History of Present Illness General Chief Complaint: Abdominal Pain Source: Patient Present Illness HPI This is a 79-year-old female with a history of high blood pressure. She presents with chief plaint abdominal pain. Onset for a week now. Getting worse. She said that pain is diffuse in nature. No nausea no vomiting but decreased appetite. No fever but has chills. Also with urinary frequency and urgency. No hematuria. No cough or congestion. No chest pain. Nothing made it better. Any movement made it worse. She said that she has been in bed all week because of the pain. Only been drinking water. Did not take her blood pressure medication today. 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 Patient History Past Medical History: see triage record, old chart reviewed, HTN Past Surgical History: other Pertinent Family History: none Social History: Denies: smoking Last Menstrual Period: n/a Now: No Immunizations: other Reviewed Nursing Documentation: PMH: Agreed; PSxH: Agreed Nursing Documentation-PMH Past Medical History: No History, Except For Hx Cardiac Problems: Yes - CHF Hx Hypertension: Yes Hx Diabetes: Yes Hx Cancer: No Hx Gastrointestinal Problems: Yes - GERD Hx Neurological Problems: Yes - Degenerative disc disease Hx Memory Loss: Yes Hx Dizziness: Yes Hx Syncope: Yes Hx Headaches: Yes Hx Weakness: Yes Hx Neurologic Surgery: No Hx Brain Shunt: No Review of Systems Constitutional: Reports: chills, malaise, weakness Eye: Denies: eye pain, blurred vision ENT: Denies: ear pain, nose congestion, throat swelling Respiratory: Denies: cough, shortness of breath Cardiovascular: Denies: chest pain, palpitations Gastrointestinal: Reports: abdominal pain; Denies: diarrhea, nausea, vomiting Genitourinary: Reports: dysuria, frequency Musculoskeletal: Denies: back pain, joint pain Skin: Denies: rash Neurological: Denies: headache, numbness Endocrine: Denies: increased thirst, increased urine Hematologic/Lymphatic: Denies: easy bruising All Other Systems: negative except mentioned in HPI Physical Exam Vital Signs Date Time Temp Pulse Resp B/P (MAP) Pulse Ox O2 Delivery O2 Flow Rate FiO2 06/11/20 03:20 98.2 73 17 178/73 (108) 97 Room Air Vitals with high blood pressure Sp02 EP Interpretation: reviewed, normal General Appearance: well appearing, no apparent distress, alert, obese Head: normocephalic, atraumatic Eyes: bilateral eye PERRL, bilateral eye EOMI ENT: hearing grossly normal, normal pharynx Neck: full range of motion, supple, no meningismus Respiratory: chest non-tender, lungs clear, normal breath sounds Cardiovascular #1: regular rate, rhythm, no murmur Gastrointestinal: normal bowel sounds, no mass, no organomegaly, no bruit, non- distended, tenderness - Diffuse Musculoskeletal: back normal, normal range of motion, gait/station normal Psychiatric: mood/affect normal Medical Decision Making Diagnostic Impression: Primary Impression: Abdominal pain Qualified Codes: R10.84 - Generalized abdominal pain Additional Impressions: Pneumonia due to COVID-19 virus Hypertension Qualified Codes: I10 - Essential (primary) hypertension ER Course This patient presents with weakness and abdominal pain. Subjective chills at home. CT scan of the abdomen pretty unremarkable. It did show bilateral groundglass opacity suggestive of Covid pneumonia. She is also positive for Covid on the swab. Patient however has no respiratory complaint. Oxygenation is normal here. Because of her age and generalized weakness, will admit for further work-up. Antibiotics given here. Lovenox given here also. I held steroid because she is not hypoxic. I contacted Dr. Trejo for admission. Rhythm Strip Diag. Results EP Interpretation: yes Rate: 79 Rhythm: NSR, no PVC's, no ectopy Chest X-Ray Diagnostic Results Chest X-Ray Diagnostic Results : Chest X-Ray Ordered: Yes # of Views/Limited/Complete: 1 View Indication: Other Interpretation: no effusion, no pneumothorax, no acute cardiopulmonary disease, other - Bilateral interstitial infiltrates Impression: Other - Bilateral infiltrates CT/MRI/US Diagnostic Results CT/MRI/US Diagnostic Results : Imaging Test Ordered: CT abdomen pelvis Impression Read by radiologist. Prominent bilateral groundglass opacity of the visualized thorax. Seen the second portion of the duodenum. Prominent soft tissue thickening noted at the rectum near the anal verge. Last Vital Signs Date Time Temp Pulse Resp B/P (MAP) Pulse Ox O2 Delivery O2 Flow Rate FiO2 06/11/20 03:20 98.2 73 17 178/73 (108 97 Room Air Status: improved Disposition: ADMITTED INPATIENT Condition: Serious Aung Beebe MD Jun 11, 2020 03:37
--- NOTE | 2020-06-11 03:40 | NUR ---
ED Nurse Note: Recieved pt walk in from home with c/o severe abdominal pain x 1 week, pt was seen and is being treated currently for UTI, pt states pain so severe cant eat, pain at 10/10 and radiating to back, pt denies fevers, diarrhea, emesis x 2, and no chest pain or sob, pt immediately assisted to bed and gowned, pt assisted out of car also, pt b/p is elevated, MD at bedside, will resume care as ordered and closely monitor.
[2020-06-11] MEDS ORDERED: Morphine Sulfate 4mg/ml Inj (IV USE ONLY) IVP ONE ×2 (03:45→05:00)
--- NOTE | 2020-06-11 03:55 | NUR ---
ED Nurse Note: Pt IV line placed, labs drawn and medicated, pt being taken to imaging for CT-Scan, will resume care when pt returns.
[2020-06-11 04:27] LABS: CALCIUM 9.2 MG/DL (8.5-10.1); CREATININE 1.4 MG/DL (0.55-1.30); POTASSIUM 4.2 MMOL/L (3.5-5.1)
[2020-06-11 04:29] LABS: BASOPHILS % (AUTO) 0.7 % (0.0-2.0); EOSINOPHILS % (AUTO) 1.7 % (0.0-3.0); HEMATOCRIT 36.6 % (37.0-47.0); HEMOGLOBIN 11.4 G/DL (12.0-16.0); LYMPHOCYTES % (AUTO) 32.4 % (20.0-45.0); MEAN CORPUSCULAR VOLUME 88 FL (80-99); MONOCYTES % (AUTO) 10.4 % (1.0-10.0); NEUTROPHILS % (AUTO) 54.8 % (45.0-75.0); PLATELET COUNT 254 K/UL (150-450); RED BLOOD COUNT 4.14 M/UL (4.20-5.40); RED CELL DISTRIBUTION WIDTH 13.1 % (11.6-14.8); WHITE BLOOD COUNT 4.2 K/UL (4.8-10.8)
[2020-06-11 04:31] LABS: ALBUMIN 2.7 G/DL (3.4-5.0); ALBUMIN/GLOBULIN RATIO 0.5 (1.0-2.7); BILIRUBIN,TOTAL 0.4 MG/DL (0.2-1.0)
--- NOTE | 2020-06-11 04:45 | Diagnostic Imaging Report ---
EXAM: CT Abdomen and Pelvis Without Intravenous Contrast CLINICAL HISTORY: ABD PAIN TECHNIQUE: Axial computed tomography images of the abdomen and pelvis without intravenous contrast. CTDI is 12.30 mGy and DLP is 677.60 mGy-cm. One or more of the following dose reduction techniques were used: automated exposure control, adjustment of the mA and/or kV according to patient size, use of iterative reconstruction technique. COMPARISON: CT abdomen pelvis 03/16/2020 FINDINGS: Redemonstration of large hiatal hernia, possibly paraesophageal in nature. Correlate with dedicated chest imaging and/or esophagram for better characterization. Postsurgical clips are seen adjacent to the distal esophagus and at the GE junction, correlate with surgical history. Prominent bilateral groundglass opacities of the visualized thorax are noted. Findings may represent multifocal infection. Typical and atypical etiologies can be considered. Aspiration may also be an etiology of these findings. There is no pleural effusion of the visualized lung bases. Coronary artery calcification is noted. Solid organ evaluation is limited due to noncontrast technique. Patient is status post cholecystectomy. The unenhanced liver is grossly unremarkable. A stable 0.6 cm right posterior perihepatic nodule is identified in image 38 series 3. The pancreas demonstrates diffuse parenchymal atrophy, without pancreatic ductal dilatation. The spleen is unremarkable. There is bilateral adrenal gland thickening and nodularity with probable 1.5 cm right adrenal adenoma. Correlation with abdominal MRI is recommended for definitive characterization. There is no hydronephrosis or nephrolithiasis of the kidneys. Evaluation of the bowel is limited due to lack of oral contrast. Large hiatal hernia, possibly paraesophageal in nature as described above. Stomach is otherwise under distended, limiting evaluation. Postsurgical clips are seen in the region of the second portion of the duodenum. High density localized to the first portion of the duodenum, image 39 series 3, is nonspecific and may represent focal blood products. Consider correlation with the EGD for better characterization. There is no small bowel obstruction. The appendix is not inflamed. There is mild stool burden of the colon which limits evaluation of the colonic mucosa. Prominent soft tissue thickening is noted at the rectum near the anal verge. Correlation with colonoscopy is recommended to exclude neoplasm in this location, versus other proctitis. There is no ascites, free air, or loculated fluid collection. Mild haziness of the small bowel mesentery stable. Small volume nodes are identified, particularly along the pelvic sidewalls, left greater than right. Urinary bladder is relatively underdistended, living evaluation. Tiny nodular focus along the anterior superior margin of the urinary bladder, image 121 series 3, is unchanged, likely related to urachal remnant. Patient is status post hysterectomy. There is no aneurysm of the abdominal aorta. Moderate to severe atheromatous changes are identified. Stable soft tissue infiltrative changes are noted along the anterior superficial soft tissues. Correlate for injection. Cellulitis is considered less likely given chronicity. Degenerative changes of the visualized thoracolumbar spine are identified. There is redemonstration of grade 1 anterolisthesis of L3 on L4 and severe height loss at L4-L5 levels. Correlate with spinal MRI as clinically warranted. IMPRESSION: Prominent bilateral groundglass opacities of the visualized thorax. Findings may represent multifocal infection. Typical and atypical etiologies can be considered, include COVID pneumonia. Correlate with dedicated CT of the chest for better characterization. Follow to resolution with repeat chest CT in 6 weeks. Aspiration may also be an etiology of these findings as well, given the large hiatal hernia, possibly paraesophageal in morphology. Postsurgical clips are seen in the region of the second portion of the duodenum. High density localized to the first portion of the duodenum, image 39 series 3, is nonspecific and may represent focal blood products. Consider correlation with the EGD for better characterization. Correlate for signs and symptoms of GI bleeding. Prominent soft tissue thickening is noted at the rectum near the anal verge. Correlation with colonoscopy is recommended to exclude neoplasm in this location, versus other proctitis. Stable soft tissue infiltrative changes are noted along the anterior superficial soft tissues. Correlate for injection. Soft tissue cellulitis is considered less likely. Clinical correlation is recommended. A nonspecific indeterminate right posterior perihepatic nodule measuring 0.6 cm is stable. Follow-up CT abdomen pelvis is recommended in 6 months to evaluate for stability of these findings. Additional numerous chronic findings as above.
--- NOTE | 2020-06-11 04:55 | NUR ---
ED Nurse Note: Recieved call from lab, pt is Covid positive, pt immediately chagned to isolation room on Covid isolation precautions, pt informed of results and placed call to family, granddaughter Anya at [phone], also informed of pt admission, pt being started on ordered IV antibiotics, pt continues to refuse urine and to be cath, MD is aware, will continue to closely monitor and prepare for admission.
[2020-06-11] MEDS ORDERED: cefTRIAXone 1 GM in NS 55 ML IVPB ONE (05:00)
[2020-06-11] MEDS ORDERED: Azithromycin 500 MG in NS 275 ML IV ONE (05:00)
[2020-06-11] MEDS ORDERED: Enoxaparin 100mg Inj SUBQ ONE (05:30)
--- NOTE | 2020-06-11 05:50 | Diagnostic Imaging Report ---
EXAM: XR Chest, 1 View CLINICAL HISTORY: Shortness of breath. TECHNIQUE: Frontal view of the chest. COMPARISON: No relevant prior studies available. FINDINGS/IMPRESSION: Multifocal lung parenchymal opacities are better seen on the recent CT abdomen pelvis, new since prior CT from 03/16/2020. There is a hiatal hernia also better seen on the recent CT abdomen pelvis. Correlate with chest CT. Follow to resolution with repeat chest CT in 6 weeks. There is no pneumothorax. Heart size is enlarged.
--- NOTE | 2020-06-11 06:37 | NUR ---
ED Nurse Note: report given to kathleen garza to [facility] for continuation of care
--- NOTE | 2020-06-11 07:14 | NUR ---
NURSE HAND-OFF: Pt admitted to [facility] med surg for abdominal pain for past week. Pt said it is 12/02. Pt vitals were taken and stable, refused to let us account for her belongings in her black purse, it is with her at her bedside. She was assisted to the restroom. Pt is sitting in bed, bed locked in lowest position, pt to call for assistance as needed. pt verbalized understanding Important Events on Shift: admitted to [facility], right before shift change at 0650. Needs admitting orders. Report given to .
--- NOTE | 2020-06-11 07:30 | NUR ---
NURSE NOTES: Patient is in bed awake and able to verbalize needs. Stable. Breathing is labored upon exertion on room air, O2 sat 98%. Patient instructed to use call light for assistance, verbalized understanding. Skin is c/d/i. Patient is in bed in locked and lowest position with call light within reach. All safety measures provided. Will continue to monitor. Addendum: 06/11/20 at 0936 by ZAHRAA MEAD RN Dr. Neil buckley regarding admission orders, awaiting response.
[2020-06-11] MEDS ORDERED: HYDROcodone/Acetamin 5/325 tab ORAL PRN (10:45)
[2020-06-11] MEDS ORDERED: dexAMETHasone 10mg/ml Inj IV SCH (11:00)
[2020-06-11] MEDS: Morphine Sulfate 4mg/ml Inj (IV USE ONLY) IVP PRN ×2 (11:34→16:53)
[2020-06-11] MEDS: NovoLOG Insulin Flexpen SUBQ SCH ×3 (11:42→21:19)
--- NOTE | 2020-06-11 12:22 | Consultation ---
Consult Note Consult Note I am asked to evaluate the patient at the request of Dr. Trejo for renal failure Chief Complaint: Abdominal Pain This is a 79-year-old female with a history of high blood pressure. She presents with chief plaint abdominal pain. Onset for a week now. Getting worse. She said that pain is diffuse in nature. No nausea no vomiting but decreased appetite. No fever but has chills. Also with urinary frequency and urgency. No hematuria. No cough or congestion. No chest pain. Nothing made it better. Any movement made it worse. She said that she has been in bed all week because of the pain. Only been drinking water. Did not take her blood pressure medication today. 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: No Past Medical History: see triage record, old chart reviewed, HTN Past Surgical History: other Pertinent Family History: none Social History: Denies: smoking Last Menstrual Period: n/a Now: No Immunizations: other Reviewed Nursing Documentation: PMH: Agreed; PSxH: Agreed Past Medical History: No History, Except For Hx Cardiac Problems: Yes - CHF Hx Hypertension: Yes Hx Diabetes: Yes Hx Gastrointestinal Problems: Yes - GERD Hx Neurological Problems: Yes - Degenerative disc disease Hx Memory Loss: Yes Hx Dizziness: Yes Hx Syncope: Yes Hx Headaches: Yes Hx Weakness: Yes Physical Exam Gen: NAD HEENT: NCAT Pulm: BL chest rise on RA Abd: Soft, diffusely TTP, no rebound/guarding Ext: No c/c/e Neuro: Awake, interactive Last 24 Hour Vital Signs Date Time Temp Pulse Resp B/P (MAP) Pulse Ox O2 Delivery O2 Flow Rate FiO2 06/11/20 09:32 Room Air 06/11/20 08:00 97.4 66 19 128/48 (74) 98 06/11/20 07:12 98.0 79 20 111/51 (71) 98 06/11/20 06:40 98.2 78 17 158/79 97 Room Air 06/11/20 05:38 98.2 06/11/20 05:00 98.2 17 158/79 97 Room Air 06/11/20 04:24 98.2 06/11/20 03:50 98.2 78 17 196/105 97 Room Air 06/11/20 03:45 73 17 Room Air 06/11/20 03:44 196/105 06/11/20 03:20 98.2 73 17 178/73 (108) 97 Room Air Assessment/Plan Renal failure, most likely acute on chronic Abdominal pain, etiology to be determined Pneumonia due to COVID-19 19 virus Hypertension Hyperglycemia Patient started on dexamethasone Lovenox and antibiotics We will monitor renal parameters and blood sugar IV Protonix given Anemia work-up Urine analysis and urine studies Avoid nephrotoxic's Per orders Melchor Reeves MD Jun 11, 2020 12:21
--- NOTE | 2020-06-11 12:31 | Consultation ---
History of Present Illness General Date patient seen: Jun 11, 2020 Time patient seen: 12:25 Chief Complaint: Abdominal Pain Referring physician: PCP Reason for Consultation: COVID+ Present Illness HPI 79yo F with HTN who p/w abd pain x1 week, worsening. COVID+ on screen for which ID is consulted. Pt is AF, HDS in house with normal WBC, satting well on RA. No resp issues. Reports she came in because of abd pain, going on for over a week, only able to tolerate water recently Also with bladder pain, feels like a UTI Also feels like yeast infection ROS neg for fevers/chills, NVD, CP, SOB, cough Pt hasn't been out of the house since July, but her daughter had COVID and was at home, this is likely how she got it No allergies to abx Allergies: Coded Allergies: CODEINE (Verified Allergy, Mild, Itching, 08/26/13) SULFA (SULFONAMIDE ANTIBIOTICS) (Verified Adverse Reaction, Mild, 08/26/13) VOMIT Medication History Scheduled Amlodipine Besylate (Norvasc), 10 MG ORAL DAILY, (Reported) Ascorbic Acid* (Vitamin C*), 500 MG ORAL DAILY, (Reported) Aspirin* (Aspir 81*), 81 MG ORAL DAILY, (Reported) Cholecalciferol (Vitamin D3) (Replesta), 50,000 UNIT PO WEEKLY, (Reported) Docusate Sodium (Docusate Sodium), 100 MG ORAL BID, (Reported) Docusate Sodium* (Colace*), 100 MG ORAL TWICE A DAY Ferrous Sulfate (Ferosul), 325 MG PO BID, (Reported) Hum Insulin Nph/Reg Insulin Hm (Humulin 70-30 Vial), 50 SUBQ BIDAC, (Reported) Hydrochlorothiazide* (Hydrochlorothiazide*), 25 MG ORAL DAILY, (Reported) Insulin Regular, Human* (Novolin R*), 0 SUBQ .SLIDING SCALE, (Reported) Lansoprazole* (Prevacid*), 30 MG ORAL BID, (Reported) Lidocaine Patch* (Lidoderm Patch*), 2 PATCH TOPIC DAILY, (Reported) Polyethylene Glycol 3350* (Miralax*), 17 GM ORAL DAILY Pregabalin* (Lyrica*), 75 MG ORAL BID, (Reported) Simvastatin (Zocor), 20 MG ORAL BEDTIME, (Reported) Sitagliptin Phos/Metformin Hcl (Janumet 50-500 Mg Tablet), Unknown Dose ORAL BID, (Reported) Scheduled PRN Carisoprodol (Soma), 250 MG PO Q8HR PRN for Muscle Spasm, (Reported) Clonidine Hcl* (Catapres*), 0.1 MG ORAL DAILY PRN for ELEVATED BLOOD PRESSURE, (Reported) Hydrocodone Bit/Acetaminophen 5-325* (Levering 5-325*), 1 TAB ORAL Q8HR PRN for For Pain, (Reported) Patient History Healthcare decision maker Resuscitation status Advanced Directive on File Review of Systems ROS Narrative 10-point ROS neg except as noted in HPI Physical Exam Physical Exam Narrative Gen: NAD HEENT: NCAT Pulm: BL chest rise on RA Abd: Soft, diffusely TTP, no rebound/guarding Ext: No c/c/e Neuro: Awake, interactive Last 24 Hour Vital Signs Date Time Temp Pulse Resp B/P (MAP) Pulse Ox O2 Delivery O2 Flow Rate FiO2 06/11/20 09:32 Room Air 06/11/20 08:00 97.4 66 19 128/48 (74) 98 06/11/20 07:12 98.0 79 20 111/51 (71) 98 06/11/20 06:40 98.2 78 17 158/79 97 Room Air 06/11/20 05:38 98.2 06/11/20 05:00 98.2 17 158/79 97 Room Air 06/11/20 04:24 98.2 06/11/20 03:50 98.2 78 17 196/105 97 Room Air 06/11/20 03:45 73 17 Room Air 06/11/20 03:44 196/105 06/11/20 03:20 98.2 73 17 178/73 (108) 97 Room Air Intake and Output 06/10/20 06/11/20 19:00 07:00 Output Total 0 ml Balance 0 ml Output Urine Total 0 ml Laboratory Tests Test 06/11/20 03:35 White Blood Count 4.2 K/UL (4.8-10.8) L Red Blood Count 4.14 M/UL (4.20-5.40) L Hemoglobin 11.4 G/DL (12.0-16.0) L Hematocrit 36.6 % (37.0-47.0) L Mean Corpuscular Volume 88 FL (80-99) Mean Corpuscular Hemoglobin 27.4 PG (27.0-31.0) Mean Corpuscular Hemoglobin Concent 31.1 G/DL (32.0-36.0) L Red Cell Distribution Width 13.1 % (11.6-14.8) Platelet Count 254 K/UL (150-450) Mean Platelet Volume 6.5 FL (6.5-10.1) Neutrophils (%) (Auto) 54.8 % (45.0-75.0) Lymphocytes (%) (Auto) 32.4 % (20.0-45.0) Monocytes (%) (Auto) 10.4 % (1.0-10.0) H Eosinophils (%) (Auto) 1.7 % (0.0-3.0) Basophils (%) (Auto) 0.7 % (0.0-2.0) D-Dimer 7.44 mg/L FEU (0.00-0.49) H Sodium Level 137 MMOL/L (136-145) Potassium Level 4.2 MMOL/L (3.5-5.1) Chloride Level 101 MMOL/L (98-107) Carbon Dioxide Level 22 MMOL/L (21-32) Anion Gap 14 mmol/L (5-15) Blood Urea Nitrogen 28 mg/dL (7-18) H Creatinine 1.4 MG/DL (0.55-1.30) H Estimat Glomerular Filtration Rate 44.1 mL/min (>60) Glucose Level 252 MG/DL (74-106) H Calcium Level 9.2 MG/DL (8.5-10.1) Total Bilirubin 0.4 MG/DL (0.2-1.0) Aspartate Amino Transf (AST/SGOT) 35 U/L (15-37) Alanine Aminotransferase (ALT/SGPT) 21 U/L (12-78) Alkaline Phosphatase 55 U/L (46-116) C-Reactive Protein, Quantitative 2.6 mg/dL (0.00-0.90) H Total Protein 8.0 G/DL (6.4-8.2) Albumin 2.7 G/DL (3.4-5.0) L Globulin 5.3 g/dL Albumin/Globulin Ratio 0.5 (1.0-2.7) L Lipase 357 U/L (73-393) Microbiology Date/Time Source Procedure Growth Status 06/11/20 04:10 Nasopharynx SARS-CoV-2 RdRp Gene Assay - Final Complete Height (Feet): 5 Height (Inches): 8.00 Weight (Pounds): 200 Medications Current Medications Medications (Trade) Dose Ordered Sig/Hever Route PRN Reason Start Time Stop Time Status Last Admin Dose Admin Acetaminophen (Tylenol) 650 mg Q6H PRN ORAL Temp >100.5 06/11/20 10:45 07/11/20 10:44 Acetaminophen (Tylenol) 650 mg Q6H PRN ORAL Mild Pain (Pain Scale 1-3) 06/11/20 11:15 07/11/20 11:14 Acetaminophen/ Hydrocodone Bitart (Levering 5/325) 1 tab Q6H PRN ORAL Moderate Pain (Pain Scale 4-6) 06/11/20 10:45 06/18/20 10:44 Azithromycin (Zithromax) 250 mg DAILY ORAL 06/12/20 09:00 06/15/20 09:01 Ceftriaxone Sodium 1 gm/ Dextrose 55 ml @ 110 mls/hr DAILY IVPB 06/12/20 09:00 06/19/20 08:59 Dexamethasone Sodium Phosphate (Decadron 10mg/ ml Inj) 6 mg DAILY IV 06/11/20 11:00 06/20/20 09:01 06/11/20 11:11 Dextrose (Dextrose 50%) 25 ml Q30M PRN IV Hypoglycemia 06/11/20 10:45 09/09/20 10:44 Dextrose (Dextrose 50%) 50 ml Q30M PRN IV Hypoglycemia 06/11/20 10:45 09/09/20 10:44 Enoxaparin Sodium (Lovenox) 40 mg DAILY SUBQ 06/12/20 09:00 09/10/20 08:59 Insulin Aspart (NovoLOG Mix 70/ 30) 50 units EVERY 12 HOURS SUBQ 06/11/20 21:00 09/09/20 20:59 Insulin Aspart (NovoLOG) BEFORE MEALS AND HS SUBQ 06/11/20 11:30 09/09/20 11:29 06/11/20 11:42 Morphine Sulfate (Morphine Sulfate) 4 mg Q4H PRN IVP Severe Pain (Pain Scale 7-10) 06/11/20 10:45 06/18/20 10:44 06/11/20 11:34 Ondansetron HCl (Zofran) 4 mg Q4H PRN IVP Nausea & Vomiting 06/11/20 10:45 07/11/20 10:44 Pantoprazole (Protonix) 40 mg EVERY 12 HOURS IVP 06/11/20 21:00 07/11/20 20:59 UNV Assessment/Plan Assessment/Plan: 79yo F with: COVID+ Doing well on RA Normal WBC 06/11 COVID rapid positive CXR: Multifocal lung parenchymal opacities are better seen on the recent CT abdomen pelvis, new since prior CT from 03/16/2020. There is a hiatal hernia also better seen on the recent CT abdomen pelvis. Cr 1.4 Abd pain x1 week, prompting pt to come to ED 06/11 CT A/P: Prominent bilateral groundglass opacities of the visualized thorax. Postsurgical clips are seen in the region of the second portion of the duodenum. High density localized to the first portion of the duodenum, image 39 series 3, is nonspecific and may represent focal blood products. Prominent soft tissue thickening is noted at the rectum near the anal verge. Stable soft tissue infiltrative changes are noted along the anterior superficial soft tissues. A nonspecific indeterminate right posterior perihepatic nodule measuring 0.6 cm is stable. HTN Plan: Given fluconazole 150mg PO x1 for possible vaginal yeast infection Cont empiric CTX #1 for now for possible UTI Stop azithromycin given doing well on RA, normal WBC, low s/f bacterial lung process Stop dexamethasone given doing well on RA Not candidate for remdesivir given doing well on RA This hospital does not have access to convalescent plasma, and pt doing well on RA so not candidate for it anyways F/u UA - eval for UTI UCx Monitor CBC/CMP Monitor resp status Monitor temp curve, hemodynamics D/w RN Thank you for this consult. [facility] will continue to follow. Milagro Ahuja M.D. Jun 11, 2020 12:31
[2020-06-11] MEDS ORDERED: Fluconazole 150mg tab ORAL SCH (12:45)
--- NOTE | 2020-06-11 12:54 | NUR ---
NURSE NOTES: RN called patient's home pharmacy x2, no response. Left message regarding home medication verification. [facility]: [phone].
[2020-06-11] MEDS: Docusate 100mg cap ORAL SCH ×2 (14:01→16:52)
--- NOTE | 2020-06-11 14:03 | Consultation ---
History of Present Illness General Date patient seen: Jun 11, 2020 Reason for Hospitalization: Abdominal Pain Present Illness HPI 79-year-old female presents [facility] complaining of worsening abdominal pain generalized in nature cramping 6 out of 10 ongoing for some time now with decreased appetite and decreased p.o. intake. Admitted further care and management identified to have abnormal labs normal discomfort mild distention surgery called to eval assist with care. CT reviewed. Currently no nausea vomiting fever chills. Decreased appetite. Positive flatus and constipated. Allergies: Coded Allergies: CODEINE (Verified Allergy, Mild, Itching, 08/26/13) SULFA (SULFONAMIDE ANTIBIOTICS) (Verified Adverse Reaction, Mild, 08/26/13) VOMIT COVID-19 Screening Contact w/high risk pt: No Experienced COVID-19 symptoms?: Yes Coronavirus symptoms experienc: Fatigue, Shortness of Breath Medication History Scheduled Amlodipine Besylate (Norvasc), 10 MG ORAL DAILY, (Reported) Ascorbic Acid* (Vitamin C*), 500 MG ORAL DAILY, (Reported) Aspirin* (Aspir 81*), 81 MG ORAL DAILY, (Reported) Cholecalciferol (Vitamin D3) (Replesta), 50,000 UNIT PO WEEKLY, (Reported) Docusate Sodium (Docusate Sodium), 100 MG ORAL BID, (Reported) Docusate Sodium* (Colace*), 100 MG ORAL TWICE A DAY Ferrous Sulfate (Ferosul), 325 MG PO BID, (Reported) Hum Insulin Nph/Reg Insulin Hm (Humulin 70-30 Vial), 50 SUBQ BIDAC, (Reported) Hydrochlorothiazide* (Hydrochlorothiazide*), 25 MG ORAL DAILY, (Reported) Insulin Regular, Human* (Novolin R*), 0 SUBQ .SLIDING SCALE, (Reported) Lansoprazole* (Prevacid*), 30 MG ORAL BID, (Reported) Lidocaine Patch* (Lidoderm Patch*), 2 PATCH TOPIC DAILY, (Reported) Polyethylene Glycol 3350* (Miralax*), 17 GM ORAL DAILY Pregabalin* (Lyrica*), 75 MG ORAL BID, (Reported) Simvastatin (Zocor), 20 MG ORAL BEDTIME, (Reported) Sitagliptin Phos/Metformin Hcl (Janumet 50-500 Mg Tablet), Unknown Dose ORAL BID, (Reported) Scheduled PRN Carisoprodol (Soma), 250 MG PO Q8HR PRN for Muscle Spasm, (Reported) Clonidine Hcl* (Catapres*), 0.1 MG ORAL DAILY PRN for ELEVATED BLOOD PRESSURE, (Reported) Hydrocodone Bit/Acetaminophen 5-325* ([place] 5-325*), 1 TAB ORAL Q8HR PRN for For Pain, (Reported) Patient History History Provided By: Patient, Medical Record, PMD Healthcare decision maker Resuscitation status Advanced Directive on File Past Medical/Surgical History Past Medical/Surgical History: (1) Diabetes mellitus (2) Constipation (3) Abdominal pain (4) Pneumonia due to COVID-19 virus (5) Hypertension (6) ACS (acute coronary syndrome) (7) Major depression (8) PUD (peptic ulcer disease) (9) GERD (gastroesophageal reflux disease) (10) DDD (degenerative disc disease), lumbar (11) Radiculopathy of lumbar region (12) Accelerated hypertension (13) Vitreous hemorrhage of right eye (14) Diabetes mellitus type II, uncontrolled (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 Review of Systems Review of Symptoms General ROS: no weight loss or fever Psychological ROS: no depression or mood changes, no memory loss Ophthalmic ROS: no visual changes or eye irritation ENT ROS: no nasal congestion, hearing loss, dizziness Allergy and Immunology ROS: no allergic symptoms or urticaria Hematological and Lymphatic ROS: no swollen glands, unusual bleeding or bruising Endocrine ROS: no polyuria, polydipsia, weight changes, temperature intolerance Respiratory ROS: no cough, shortness of breath, or wheezing Cardiovascular ROS: no chest pain or dyspnea on exertion Gastrointestinal ROS: + abdominal pain, bright red blood in stool. Musculoskeletal ROS: no myalgias or arthralgias Neurological ROS: no TIA or stroke symptoms Dermatological ROS: no new or changing skin lesions, rashes or pruritis Physical Exam Physical Exam General appearance: alert, cooperative, no distress, appears stated age Head: Normocephalic, without obvious abnormality, atraumatic Eyes: conjunctivae/corneas clear. PERRL, EOM's intact. Fundi benign Throat: Lips, mucosa, and tongue normal. Teeth and gums normal Neck: supple, symmetrical, trachea midline, no adenopathy, thyroid: not enlarged, symmetric, no tenderness/mass/nodules, no carotid bruit and no JVD Lungs: clear to auscultation bilaterally Heart: regular rate and rhythm, S1, S2 normal, no murmur, click, rub or gallop Abdomen: soft, non-tender. Bowel sounds normal. No masses, no organomegaly Extremities: extremities normal, atraumatic, no cyanosis or edema Pulses: 2+ and symmetric Skin: Skin color, texture, turgor normal. No rashes or lesions Neurologic: Grossly normal Last 24 Hour Vital Signs Date Time Temp Pulse Resp B/P (MAP) Pulse Ox O2 Delivery O2 Flow Rate FiO2 06/11/20 12:00 98.6 69 18 130/52 (78) 97 06/11/20 09:32 Room Air 06/11/20 08:00 97.4 66 19 128/48 (74) 98 06/11/20 07:12 98.0 79 20 111/51 (71) 98 06/11/20 06:40 98.2 78 17 158/79 97 Room Air 06/11/20 05:38 98.2 06/11/20 05:00 98.2 17 158/79 97 Room Air 06/11/20 04:24 98.2 06/11/20 03:50 98.2 78 17 196/105 97 Room Air 06/11/20 03:45 73 17 Room Air 06/11/20 03:44 196/105 06/11/20 03:20 98.2 73 17 178/73 (108) 97 Room Air Intake and Output 06/10/20 06/11/20 19:00 07:00 Output Total 0 ml Balance 0 ml Output Urine Total 0 ml Laboratory Tests Test 06/11/20 03:35 White Blood Count 4.2 K/UL (4.8-10.8) L Red Blood Count 4.14 M/UL (4.20-5.40) L Hemoglobin 11.4 G/DL (12.0-16.0) L Hematocrit 36.6 % (37.0-47.0) L Mean Corpuscular Volume 88 FL (80-99) Mean Corpuscular Hemoglobin 27.4 PG (27.0-31.0) Mean Corpuscular Hemoglobin Concent 31.1 G/DL (32.0-36.0) L Red Cell Distribution Width 13.1 % (11.6-14.8) Platelet Count 254 K/UL (150-450) Mean Platelet Volume 6.5 FL (6.5-10.1) Neutrophils (%) (Auto) 54.8 % (45.0-75.0) Lymphocytes (%) (Auto) 32.4 % (20.0-45.0) Monocytes (%) (Auto) 10.4 % (1.0-10.0) H Eosinophils (%) (Auto) 1.7 % (0.0-3.0) Basophils (%) (Auto) 0.7 % (0.0-2.0) D-Dimer 7.44 mg/L FEU (0.00-0.49) H Sodium Level 137 MMOL/L (136-145) Potassium Level 4.2 MMOL/L (3.5-5.1) Chloride Level 101 MMOL/L (98-107) Carbon Dioxide Level 22 MMOL/L (21-32) Anion Gap 14 mmol/L (5-15) Blood Urea Nitrogen 28 mg/dL (7-18) H Creatinine 1.4 MG/DL (0.55-1.30) H Estimat Glomerular Filtration Rate 44.1 mL/min (>60) Glucose Level 252 MG/DL (74-106) H Calcium Level 9.2 MG/DL (8.5-10.1) Total Bilirubin 0.4 MG/DL (0.2-1.0) Aspartate Amino Transf (AST/SGOT) 35 U/L (15-37) Alanine Aminotransferase (ALT/SGPT) 21 U/L (12-78) Alkaline Phosphatase 55 U/L (46-116) C-Reactive Protein, Quantitative 2.6 mg/dL (0.00-0.90) H Total Protein 8.0 G/DL (6.4-8.2) Albumin 2.7 G/DL (3.4-5.0) L Globulin 5.3 g/dL Albumin/Globulin Ratio 0.5 (1.0-2.7) L Lipase 357 U/L (73-393) Microbiology Date/Time Source Procedure Growth Status 06/11/20 04:10 Nasopharynx SARS-CoV-2 RdRp Gene Assay - Final Complete Height (Feet): 5 Height (Inches): 8.00 Weight (Pounds): 200 Medications Current Medications Medications (Trade) Dose Ordered Sig/Hever Route PRN Reason Start Time Stop Time Status Last Admin Dose Admin Acetaminophen (Tylenol) 650 mg Q6H PRN ORAL Temp >100.5 06/11/20 10:45 07/11/20 10:44 Acetaminophen (Tylenol) 650 mg Q6H PRN ORAL Mild Pain (Pain Scale 1-3) 06/11/20 11:15 07/11/20 11:14 Acetaminophen/ Hydrocodone Bitart ([place] 5/325) 1 tab Q6H PRN ORAL Moderate Pain (Pain Scale 4-6) 06/11/20 10:45 06/18/20 10:44 Aspirin (Ecotrin) 81 mg DAILY ORAL 06/12/20 09:00 07/27/20 08:59 Ceftriaxone Sodium 1 gm/ Dextrose 55 ml @ 110 mls/hr DAILY IVPB 06/12/20 09:00 06/19/20 08:59 Dextrose (Dextrose 50%) 25 ml Q30M PRN IV Hypoglycemia 06/11/20 10:45 09/09/20 10:44 Dextrose (Dextrose 50%) 50 ml Q30M PRN IV Hypoglycemia 06/11/20 10:45 09/09/20 10:44 Docusate Sodium (Colace) 100 mg THREE TIMES A DAY ORAL 06/11/20 13:00 07/11/20 12:59 Enoxaparin Sodium (Lovenox) 40 mg DAILY SUBQ 06/12/20 09:00 09/10/20 08:59 Insulin Aspart (NovoLOG Mix 70/ 30) 50 units EVERY 12 HOURS SUBQ 06/11/20 21:00 09/09/20 20:59 Insulin Aspart (NovoLOG) BEFORE MEALS AND HS SUBQ 06/11/20 11:30 09/09/20 11:29 06/11/20 11:42 Morphine Sulfate (Morphine Sulfate) 4 mg Q4H PRN IVP Severe Pain (Pain Scale 7-10) 06/11/20 10:45 06/18/20 10:44 06/11/20 11:34 Ondansetron HCl (Zofran) 4 mg Q4H PRN IVP Nausea & Vomiting 06/11/20 10:45 07/11/20 10:44 Pantoprazole (Protonix) 40 mg EVERY 12 HOURS IVP 06/11/20 21:00 07/11/20 20:59 Assessment/Plan Problem List: (1) Constipation ICD Codes: K59.00 - Constipation, unspecified SNOMED: 58419784 (2) Diabetes mellitus ICD Codes: E11.9 - Type 2 diabetes mellitus without complications SNOMED: 27639033 (3) Abdominal pain Assessment & Plan: 79 female abdominal pain cramping generalized in nature. CT reviewed large hiatal hernia postsurgical changes and clips identified around the esophagus GE junction potential prior intervention for hernia. Stomach and GI otherwise noted. Secondary to the duodenum noted. Abdominal exam fairly benign labs noted. Nonobstructed. Potentially constipated. Initiate bowel regimen. Okay for diet. Will follow with serial abdominal exams. Thank you let me participate patient's care Redemonstration of large hiatal hernia, possibly paraesophageal in nature. Correlate with dedicated chest imaging and/or esophagram for better characterization. Postsurgical clips are seen adjacent to the distal esophagus and at the GE junction, correlate with surgical history. Prominent bilateral groundglass opacities of the visualized thorax are noted. Findings may represent multifocal infection. Typical and atypical etiologies can be considered. Aspiration may also be an etiology of these findings. There is no pleural effusion of the visualized lung bases. Coronary artery calcification is noted. Solid organ evaluation is limited due to noncontrast technique. Patient is status post cholecystectomy. The unenhanced liver is grossly unremarkable. A stable 0.6 cm right posterior perihepatic nodule is identified in image 38 series 3. The pancreas demonstrates diffuse parenchymal atrophy, without pancreatic ductal dilatation. The spleen is unremarkable. There is bilateral adrenal gland thickening and nodularity with probable 1.5 cm right adrenal adenoma. Correlation with abdominal MRI is recommended for definitive characterization. There is no hydronephrosis or nephrolithiasis of the kidneys. Evaluation of the bowel is limited due to lack of oral contrast. Large hiatal hernia, possibly paraesophageal in nature as described above. Stomach is otherwise under distended, limiting evaluation. Postsurgical clips are seen in the region of the second portion of the duodenum. High density localized to the first portion of the duodenum, image 39 series 3, is nonspecific and may represent focal blood products. Consider correlation with the EGD for better characterization. There is no small bowel obstruction. The appendix is not inflamed. There is mild stool burden of the colon which limits evaluation of the colonic mucosa. Prominent soft tissue thickening is noted at the rectum near the anal verge. Correlation with colonoscopy is recommended to exclude neoplasm in this location, versus other proctitis. There is no ascites, free air, or loculated fluid collection. Mild haziness of the small bowel mesentery stable. Small volume nodes are identified, particularly along the pelvic sidewalls, left greater than right. Urinary bladder is relatively underdistended, living evaluation. Tiny nodular focus along the anterior superior margin of the urinary bladder, image 121 series 3, is unchanged, likely related to urachal remnant. Patient is status post hysterectomy. There is no aneurysm of the abdominal aorta. Moderate to severe atheromatous changes are identified. Stable soft tissue infiltrative changes are noted along the anterior superficial soft tissues. Correlate for injection. Cellulitis is considered less likely given chronicity. Degenerative changes of the visualized thoracolumbar spine are identified. There is redemonstration of grade 1 anterolisthesis of L3 on L4 and severe height loss at L4-L5 levels. Correlate with spinal MRI as clinically warranted. IMPRESSION: Prominent bilateral groundglass opacities of the visualized thorax. Findings may represent multifocal infection. Typical and atypical etiologies can be considered, include COVID pneumonia. Correlate with dedicated CT of the chest for better characterization. Follow to resolution with repeat chest CT in 6 weeks. Aspiration may also be an etiology of these findings as well, given the large hiatal hernia, possibly paraesophageal in morphology. Postsurgical clips are seen in the region of the second portion of the duodenum. High density localized to the first portion of the duodenum, image 39 series 3, is nonspecific and may represent focal blood products. Consider correlation with the EGD for better characterization. Correlate for signs and symptoms of GI bleeding. Prominent soft tissue thickening is noted at the rectum near the anal verge. Correlation with colonoscopy is recommended to exclude neoplasm in this location, versus other proctitis. Stable soft tissue infiltrative changes are noted along the anterior superficial soft tissues. Correlate for injection. Soft tissue cellulitis is considered less likely. Clinical correlation is recommended. A nonspecific indeterminate right posterior perihepatic nodule measuring 0.6 cm is stable. Follow-up CT abdomen pelvis is recommended in 6 months to evaluate for stability of these findings. ICD Codes: R10.9 - Unspecified abdominal pain SNOMED: 36122983 Qualifiers: Qualified Codes: R10.84 - Generalized abdominal pain (4) Pneumonia due to COVID-19 virus Assessment & Plan: Covid positive treatment as per amisha and RIO will follow thank you ICD Codes: U07.1 - COVID-19; J12.82 - Pneumonia due to coronavirus disease 2019 SNOMED: 379109857538108794 (5) Hypertension ICD Codes: I10 - Essential (primary) hypertension SNOMED: 46543281 Qualifiers: Qualified Codes: I10 - Essential (primary) hypertension (6) ACS (acute coronary syndrome) ICD Codes: I24.9 - Acute ischemic heart disease, unspecified SNOMED: 730499255 (7) Major depression ICD Codes: F32.9 - Major depressive disorder, single episode, unspecified SNOMED: 09122157, 374390252 (8) PUD (peptic ulcer disease) ICD Codes: K27.9 - Peptic ulcer, site unspecified, unspecified as acute or chronic, without hemorrhage or perforation SNOMED: 89112531 (9) GERD (gastroesophageal reflux disease) ICD Codes: K21.9 - Gastro-esophageal reflux disease without esophagitis SNOMED: 326577849 (10) DDD (degenerative disc disease), lumbar ICD Codes: M51.36 - Other intervertebral disc degeneration, lumbar region SNOMED: 17635808 (11) Radiculopathy of lumbar region ICD Codes: M54.16 - Radiculopathy, lumbar region SNOMED: 220038806 (12) Accelerated hypertension (13) Vitreous hemorrhage of right eye ICD Codes: H43.11 - Vitreous hemorrhage, right eye SNOMED: 262559555315766 (14) Diabetes mellitus type II, uncontrolled ICD Codes: E11.65 - Type 2 diabetes mellitus with hyperglycemia SNOMED: 57119616, 606245192 (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
--- NOTE | 2020-06-11 15:37 | NUR ---
NURSE NOTES: Assisted patient to bathroom, patient unable to void. Unable to collect urine sample.
--- NOTE | 2020-06-11 17:00 | History & Physical ---
History and Physical History & Physicial Dictated for Int Med-Dr Trejo no. [id number] Isael Hutton MD Jun 11, 2020 17:00
--- NOTE | 2020-06-11 17:45 | History and Physical Report ---
DATE OF ADMISSION: 06/11/2020 CHIEF COMPLAINT: The patient is a 79-year-old female who presents with a chief complaint of abdominal pain. HISTORY OF PRESENT ILLNESS: Began approximately one week ago, the patient began to experience abdominal pain. The pain is located over the periumbilical region. The patient states it radiates to the back and to both sides. The patient also complains of cough. The cough is nonproductive. The patient also complains of nausea without vomiting. The patient also complains of urinary frequency. The patient presented to [facility] emergency room. The patient was found to have COVID-19 positive pneumonia. The patient was admitted with abdominal pain and COVID-19 pneumonia. REVIEW OF SYSTEMS: CONSTITUTIONAL: The patient denies weight loss or weight gain. The patient denies fevers or chills. HEENT: The patient denies ear or throat pain. The patient denies headache. CARDIOVASCULAR: The patient denies palpitations or chest pain. CHEST: The patient complains of nonproductive cough as above. The patient denies wheezes. ABDOMEN: The patient complains of generalized abdominal pain as above. The patient denies diarrhea, constipation, or vomiting. The patient does complain of nausea as above. GENITOURINARY: The patient complains of increased urinary frequency. The patient denies dysuria. NEUROLOGIC: The patient denies seizures or generalized weakness. PAST MEDICAL HISTORY: Significant for: 1. Type 2 diabetes. 2. Hypertension. 3. Glaucoma. PAST SURGICAL HISTORY: Significant for: 1. Cholecystectomy. 2. Appendectomy. 3. Laser surgery of the right eye. CURRENT MEDICATIONS: 1. Oxycodone 20 mg one tablet p.o. twice daily. 2. Baclofen 10 mg p.o. three times daily. 3. Rhopressa 0.02% one drop to the right eye at bedtime. 4. Myrbetriq 50 mg p.o. daily. 5. Humulin 70/30 50 units subcutaneously twice daily. 6. 0.2/0.5% one drop in the right eye twice daily. 7. Janumet one tab p.o. twice daily. ALLERGIES: To sulfa. SOCIAL HISTORY: The patient is a and lives alone. The patient denies tobacco or alcohol use. PHYSICAL EXAMINATION: VITAL SIGNS: Temperature 98.2, respirations 17, pulse 73, blood pressure 178/73. GENERAL: The patient is well-developed and well-nourished female, in moderate abdominal pain distress. HEENT: Eyes, pupils are equal and responsive to light and accommodation. Extraocular movements are intact. NECK: Supple without lymphadenopathy. CHEST: Lungs are clear to auscultation bilaterally without wheezes or rales. CARDIOVASCULAR: Regular rate. S1 and S2 are normal without murmurs, rubs, or gallops. ABDOMEN: Soft, nontender, nondistended. Positive bowel sounds. No evidence of hepatosplenomegaly. Currently, no rebound or guarding noted. EXTREMITIES: Negative for clubbing, cyanosis, or edema. RECTAL/GENITAL: Not performed. NEUROLOGIC: Cranial nerves II through XII are grossly intact without focal deficits. Motor strength is 5/5 bilaterally. Deep tendon reflexes are 2+ plantar. LABORATORY AND DIAGNOSTIC DATA: WBC 4.2, hemoglobin 11.4, hematocrit 36.6, platelets 254,000. Sodium 137, potassium 4.2, chloride 101, CO2 22, BUN 28, creatinine 1.4, glucose 252. Urinalysis is pending. Chest x-ray revealed bilateral lung parenchymal opacities consistent with pneumonia. CT scan of the abdomen and pelvis revealed bilateral ground glass opacities of the lungs consistent with COVID-19. A COVID-19 rapid test was reported as positive. ASSESSMENT: This is a 79-year-old female. 1. COVID-19 positive. 2. Bilateral pneumonia. 3. Abdominal pain. 4. Diabetes type 2. 5. Hypertension. 6. Renal failure. 7. Glaucoma. 8. Urinary frequency. TREATMENT: 1. COVID-19/bilateral pneumonia. An Infectious Disease consultation has been obtained with . A Pulmonary consultation has been obtained with Dr. Ulloa. Follow recommendations of Pulmonary and Infectious Diseases. The patient has been started empirically on azithromycin and ceftriaxone. The patient has been started on Decadron. 2. Abdominal pain, this may be secondary to COVID-19. The patient is currently requesting morphine for abdominal pain. A urine culture is pending. 3. Diabetes type 2. Continue 70/30 insulin as above. A NovoLog sliding scale has been instituted. 4. Hypertension. The patient is currently receiving p.r.n. hydralazine. 5. Renal failure. Nephrology consultation has been obtained with Dr. Reeves. 6. Glaucoma. Continue eye drops as above. Isael Hutton M.D. DR: Ken JOB#: [id number] CC:
[2020-06-11] MEDS: Bethanechol 10mg Tab ORAL SCH (18:18)
[2020-06-11] MEDS: timoloL maleate 0.5% Op Soln 2.5ml BOTH EYES SCH (18:18)
--- NOTE | 2020-06-11 19:00 | NUR ---
NURSE NOTES: Patient voided x2. Incontinent, unable to collect urine. Endorsed to next shift.
--- NOTE | 2020-06-11 19:17 | NUR ---
NURSE HAND-OFF: Important Events on Shift: admitted to 4E Patient Status: stable Diet: cardiac ccho Pending Orders: n/a Pending Results/Labs: urine Pending MD notification:n/a Latest Vital Signs: Temperature 97.9 , Pulse 70 , B/P 156 /66 , Respiratory Rate 18 , O2 SAT 94 , Room Air, O2 Flow Rate . Vital Sign Comment: n/a Latest Rangel Fall Score: 55 Fall Risk: High Risk Safety Measures: Call light Within Reach, Bed Alarm Zone 2, Side Rails Side Rails x2, Bed position Low and Locked. Fall Precautions: Patient Fall Education Report given to Yulisa GARNER.
[2020-06-11] MEDS: Pantoprazole Inj IVP SCH (21:17)
[2020-06-11] MEDS: Brimonidine 0.2% Opth Sol RIGHT EYE SCH (21:17)
[2020-06-12 04:00] VITALS: BP 151/74
[2020-06-12] MEDS: Brimonidine 0.2% Opth Sol RIGHT EYE SCH ×3 (05:46→21:10)
[2020-06-12] MEDS: NovoLOG Insulin Flexpen SUBQ SCH ×4 (05:46→21:00)
[2020-06-12 06:02] LABS: APPEARANCE,URINE CLOUDY; BILIRUBIN, URINE NEGATIVE (NEGATIVE); COLOR,URINE PALE YELLOW; GLUCOSE, URINE (UA) 4+ (NEGATIVE); KETONES,URINE 3+ (NEGATIVE); LEUKOCYTE ESTERASE ,URINE 3+ (NEGATIVE); NITRITE,URINE POSITIVE (NEGATIVE); PH,URINE 5 (4.5-8.0); PROTEIN,URINE 3+ (NEGATIVE); UROBILINOGEN,URINE NORMAL MG/DL (0.0-1.0)
--- NOTE | 2020-06-12 07:19 | NUR ---
HAND-OFF: Report given to Dexter Owens RN/Paige Gonzalez RN.
--- NOTE | 2020-06-12 07:20 | NUR ---
NURSE NOTES: Received report from Yulisa GARNER. Patient is awake and alert x4. On room air, reporting feeling weak. No Sob, does not seem to be in acute distress. IV on right AC SL. Bed in lowest position, call light in reach.
[2020-06-12 08:00] VITALS: BP 144/61
[2020-06-12] MEDS ORDERED: Azithromycin 250mg tab ORAL SCH (09:00)
--- NOTE | 2020-06-12 09:07 | Infectious Diseases Prog Note ---
Assessment/Plan 79yo F with: COVID+ Doing well on RA Normal WBC 06/11 COVID rapid positive CXR: Multifocal lung parenchymal opacities are better seen on the recent CT abdomen pelvis, new since prior CT from 03/16/2020. There is a hiatal hernia also better seen on the recent CT abdomen pelvis. R/o UTI 06/11 UA+, UCx p Cr 1.4 Abd pain x1 week, prompting pt to come to ED 06/11 CT A/P: Prominent bilateral groundglass opacities of the visualized thorax. Postsurgical clips are seen in the region of the second portion of the duodenum. High density localized to the first portion of the duodenum, image 39 series 3, is nonspecific and may represent focal blood products. Prominent soft tissue thickening is noted at the rectum near the anal verge. Stable soft tissue infiltrative changes are noted along the anterior superficial soft tissues. A nonspecific indeterminate right posterior perihepatic nodule measuring 0.6 cm is stable. HTN Plan: Cont empiric CTX #2 for now for possible UTI Not candidate for remdesivir nor steroids given doing well on RA This hospital does not have access to convalescent plasma, and pt doing well on RA so not candidate for it anyways COVID isolation through 06/21 F/u UCx 06/11 SP fluconazole 150mg x1 for vaginal yeast infection Monitor CBC/CMP Monitor resp status Monitor temp curve, hemodynamics D/w RN Thank you for this consult. [facility] will continue to follow. Subjective Allergies: Coded Allergies: CODEINE (Verified Allergy, Mild, Itching, 08/26/13) SULFA (SULFONAMIDE ANTIBIOTICS) (Verified Adverse Reaction, Mild, 08/26/13) VOMIT AF NAD on RA, breathing stable Slightly less pain and itching w/ urination Objective Last 24 Hour Vital Signs Date Time Temp Pulse Resp B/P (MAP) Pulse Ox O2 Delivery O2 Flow Rate FiO2 06/12/20 08:00 97.6 75 18 144/61 (88) 98 06/12/20 04:00 98.1 57 18 151/74 (99) 98 06/11/20 23:56 97.9 60 16 137/80 (99) 97 06/11/20 21:00 Room Air 06/11/20 20:00 98.2 54 17 145/78 (100) 98 06/11/20 16:00 97.9 70 18 156/66 (96) 94 1/17/21 12:00 98.6 69 18 130/52 (78) 97 06/11/20 09:32 Room Air Height (Feet): 5 Height (Inches): 8.00 Weight (Pounds): 200 Gen: NAD HEENT: NCAT Pulm: BL chest rise Abd: Non-distended Ext: No c/c/e Skin: No visible rashes Neuro: Awake Microbiology Date/Time Source Procedure Growth Status 06/11/20 04:10 Nasopharynx SARS-CoV-2 RdRp Gene Assay - Final Complete Laboratory Tests Test 06/11/20 19:58 06/12/20 05:00 06/12/20 05:15 POC Whole Blood Glucose 226 MG/DL (74-106) H 90 MG/DL (74-106) Urine Color Pale yellow Urine Appearance Cloudy Urine pH 5 (4.5-8.0) Urine Specific [place] 1.020 (1.005-1.035) Urine Protein 3+ (NEGATIVE) H Urine Glucose (UA) 4+ (NEGATIVE) H Urine Ketones 3+ (NEGATIVE) H Urine Blood 1+ (NEGATIVE) H Urine Nitrite Positive (NEGATIVE) H Urine Bilirubin Negative (NEGATIVE) Urine Urobilinogen Normal MG/DL (0.0-1.0) Urine Leukocyte Esterase 3+ (NEGATIVE) H Urine RBC Tntc /HPF (0 - 2) H Urine WBC Tntc /HPF (0 - 2) H Urine Squamous Epithelial Cells Few /LPF (NONE/OCC) Urine Bacteria Few /HPF (NONE) Urine Yeast Many /HPF (NONE) H Urine Random Sodium 26 mmol/L (20-110) Current Medications Medications (Trade) Dose Ordered Sig/Hever Route PRN Reason Start Time Stop Time Status Last Admin Dose Admin Acetaminophen (Tylenol) 650 mg Q6H PRN ORAL Temp >100.5 06/11/20 10:45 07/11/20 10:44 Acetaminophen (Tylenol) 650 mg Q6H PRN ORAL Mild Pain (Pain Scale 1-3) 06/11/20 11:15 07/11/20 11:14 Acetaminophen/ Hydrocodone Bitart ([place] 5/325) 1 tab Q6H PRN ORAL Moderate Pain (Pain Scale 4-6) 06/11/20 10:45 06/18/20 10:44 Aspirin (Ecotrin) 81 mg DAILY ORAL 1/18/21 09:00 07/27/20 08:59 Bethanechol Chloride (Urecholine) 10 mg THREE TIMES A DAY ORAL 06/11/20 18:00 07/11/20 17:59 06/11/20 18:18 Brimonidine Tartrate (Alphagan) 1 drop Q8HR RIGHT EYE 06/11/20 22:00 09/09/20 21:59 06/12/20 05:46 Ceftriaxone Sodium 1 gm/ Dextrose 55 ml @ 110 mls/hr DAILY IVPB 06/12/20 09:00 06/19/20 08:59 Dextrose (Dextrose 50%) 25 ml Q30M PRN IV Hypoglycemia 06/11/20 10:45 09/09/20 10:44 Dextrose (Dextrose 50%) 50 ml Q30M PRN IV Hypoglycemia 06/11/20 10:45 09/09/20 10:44 Docusate Sodium (Colace) 100 mg THREE TIMES A DAY ORAL 06/11/20 13:00 07/11/20 12:59 06/11/20 16:52 Enoxaparin Sodium (Lovenox) 40 mg DAILY SUBQ 06/12/20 09:00 09/10/20 08:59 Insulin Aspart (NovoLOG Mix 70/ 30) 50 units EVERY 12 HOURS SUBQ 06/11/20 21:00 09/09/20 20:59 06/11/20 21:20 Insulin Aspart (NovoLOG) BEFORE MEALS AND HS SUBQ 06/11/20 11:30 09/09/20 11:29 06/11/20 21:19 Morphine Sulfate (Morphine Sulfate) 4 mg Q4H PRN IVP Severe Pain (Pain Scale 7-10) 06/11/20 10:45 06/18/20 10:44 06/11/20 16:53 Ondansetron HCl (Zofran) 4 mg Q4H PRN IVP Nausea & Vomiting 06/11/20 10:45 07/11/20 10:44 Pantoprazole (Protonix) 40 mg EVERY 12 HOURS IVP 06/11/20 21:00 07/11/20 20:59 06/11/20 21:17 Timolol Maleate (timoloL maleate 0.5% Op Soln) 1 drop TWICE A DAY BOTH EYES 1/17/21 18:00 07/11/20 17:59 06/11/20 18:18 Milagro Ahuja M.D. Jun 12, 2020 09:07
[2020-06-12] MEDS: Bethanechol 10mg Tab ORAL SCH ×3 (09:35→17:12)
[2020-06-12] MEDS: Aspirin EC 81mg tab ORAL SCH (09:35)
[2020-06-12] MEDS: cefTRIAXone 1 GM in D5W 55 ML IVPB SCH (09:36)
[2020-06-12] MEDS: Docusate 100mg cap ORAL SCH ×3 (09:36→17:12)
[2020-06-12] MEDS: Pantoprazole Inj IVP SCH ×2 (09:37→21:10)
[2020-06-12] MEDS: timoloL maleate 0.5% Op Soln 2.5ml BOTH EYES SCH ×2 (09:37→17:13)
[2020-06-12] MEDS: Enoxaparin 40mg Inj SUBQ SCH (09:38)
--- NOTE | 2020-06-12 10:14 | Nephrology Progress Note ---
Assessment/Plan Problem List: (1) MITZI (acute kidney injury) (2) Diabetes mellitus type II, uncontrolled (3) Hypertension (4) Pneumonia due to COVID-19 virus Assessment Renal failure, most likely acute on chronic Abdominal pain, etiology to be determined Pneumonia due to COVID-19 19 virus Hypertension Hyperglycemia Plan June 12: Today's labs pending. Normal saline 50 cc an hour started. Continue per sap basis consultant. Further comments after checking the labs. Patient started on dexamethasone Lovenox and antibiotics We will monitor renal parameters and blood sugar IV Protonix given Anemia work-up Urine analysis and urine studies Avoid nephrotoxic's Per orders Subjective ROS Limited/Unobtainable: No Constitutional: Reports: malaise Objective Objective Last 24 Hour Vital Signs Date Time Temp Pulse Resp B/P (MAP) Pulse Ox O2 Delivery O2 Flow Rate FiO2 06/12/20 08:00 97.6 75 18 144/61 (88) 98 06/12/20 04:00 98.1 57 18 151/74 (99) 98 06/11/20 23:56 97.9 60 16 137/80 (99) 97 06/11/20 21:00 Room Air 06/11/20 20:00 98.2 54 17 145/78 (100) 98 06/11/20 16:00 97.9 70 18 156/66 (96) 94 06/11/20 12:00 98.6 69 18 130/52 (78) 97 Intake and Output 06/11/20 06/12/20 19:00 07:00 Output Total 300 ml Balance -300 ml Output Urine Total 300 ml # Voids 2 Current Medications Medications (Trade) Dose Ordered Sig/Hever Route PRN Reason Start Time Stop Time Status Last Admin Dose Admin Acetaminophen (Tylenol) 650 mg Q6H PRN ORAL Temp >100.5 06/11/20 10:45 07/11/20 10:44 Acetaminophen (Tylenol) 650 mg Q6H PRN ORAL Mild Pain (Pain Scale 1-3) 06/11/20 11:15 07/11/20 11:14 Acetaminophen/ Hydrocodone Bitart ([place] 5/325) 1 tab Q6H PRN ORAL Moderate Pain (Pain Scale 4-6) 06/11/20 10:45 06/18/20 10:44 Aspirin (Ecotrin) 81 mg DAILY ORAL 06/12/20 09:00 07/27/20 08:59 06/12/20 09:35 Bethanechol Chloride (Urecholine) 10 mg THREE TIMES A DAY ORAL 06/11/20 18:00 07/11/20 17:59 06/12/20 09:35 Brimonidine Tartrate (Alphagan) 1 drop Q8HR RIGHT EYE 06/11/20 22:00 09/09/20 21:59 06/12/20 05:46 Ceftriaxone Sodium 1 gm/ Dextrose 55 ml @ 110 mls/hr DAILY IVPB 06/12/20 09:00 06/19/20 08:59 06/12/20 09:36 Dextrose (Dextrose 50%) 25 ml Q30M PRN IV Hypoglycemia 06/11/20 10:45 09/09/20 10:44 Dextrose (Dextrose 50%) 50 ml Q30M PRN IV Hypoglycemia 06/11/20 10:45 09/09/20 10:44 Docusate Sodium (Colace) 100 mg THREE TIMES A DAY ORAL 06/11/20 13:00 07/11/20 12:59 06/12/20 09:36 Enoxaparin Sodium (Lovenox) 40 mg DAILY SUBQ 06/12/20 09:00 09/10/20 08:59 06/12/20 09:38 Insulin Aspart (NovoLOG Mix 70/ 30) 50 units EVERY 12 HOURS SUBQ 06/11/20 21:00 09/09/20 20:59 06/12/20 09:42 Insulin Aspart (NovoLOG) BEFORE MEALS AND HS SUBQ 06/11/20 11:30 09/09/20 11:29 06/11/20 21:19 Morphine Sulfate (Morphine Sulfate) 4 mg Q4H PRN IVP Severe Pain (Pain Scale 7-10) 06/11/20 10:45 06/18/20 10:44 06/11/20 16:53 Ondansetron HCl (Zofran) 4 mg Q4H PRN IVP Nausea & Vomiting 06/11/20 10:45 07/11/20 10:44 Pantoprazole (Protonix) 40 mg EVERY 12 HOURS IVP 06/11/20 21:00 07/11/20 20:59 06/12/20 09:37 Timolol Maleate (timoloL maleate 0.5% Op Soln) 1 drop TWICE A DAY BOTH EYES 06/11/20 18:00 07/11/20 17:59 06/12/20 09:37 Laboratory Tests 06/11/20 19:58: POC Whole Blood Glucose 226H 06/12/20 05:00: Urine Color Pale yellow, Urine Appearance Cloudy, Urine pH 5, Urine Specific [place] 1.020, Urine Protein 3+H, Urine Glucose (UA) 4+H, Urine Ketones 3+H, Urine Blood 1+H, Urine Nitrite PositiveH, Urine Bilirubin Negative, Urine Urobilinogen Normal, Urine Leukocyte Esterase 3+H, Urine RBC TntcH, Urine WBC TntcH, Urine Squamous Epithelial Cells Few, Urine Bacteria Few, Urine Yeast ManyH, Urine Random Sodium 26 06/12/20 05:15: POC Whole Blood Glucose 90 Height (Feet): 5 Height (Inches): 8.00 Weight (Pounds): 200 General Appearance: no apparent distress Cardiovascular: normal rate, other - Variable rate Respiratory/Chest: decreased breath sounds Abdomen: soft Melchor Reeves MD Jun 12, 2020 10:14
--- NOTE | 2020-06-12 10:39 | NUR ---
CASE MANAGEMENT:INITIAL REVIEW 79 YR OLD FEMALE PRESENTED TO ED FROM HOME CC;ABDOMINAL PAIN PMHx;HTN. SI;ABDOMINAL PAIN. COIVD-19 PNEUMONIA. HTN 98.2 78 17 196/105 97% ON RA H/H- 11.4/36.6 BUN+ 28 CR- 1.4 GLU+ 252 CRP+ 2.6 ALB- 2.7 D-DIMER+ 7.44 UA+ PROTEIN, GLUCOSE, KETONES, BLOOD, NITRITE, LEUKOCYTE ESTERASE, RBC, WBC, YEAST COVID RAPID ~ POSITIVE ABD/PELVIS CT ~ Prominent bilateral groundglass opacities of the visualized thorax. Findings may represent multifocal infection. Typical and atypical etiologies can be considered, include COVID pneumonia. CXR ~ Multifocal lung parenchymal opacities are better seen on the recent CT abdomen pelvis. IS;ZOFRAN IV MORPHINE IV IVF NS BOLUS HYDRALAZINE IV MORPHINE SULFATE IV ZITHROMAX IV ROCEPHIN IV LOVENOX SQ ADMITTED TO MED SURG MED SURG STATUS DCP;FROM HOME
[2020-06-12 12:00] VITALS: BP 164/70
--- NOTE | 2020-06-12 12:24 | Surgery Progress Note ---
Surgery Progress Note Subjective Symptoms: improved, tolerating diet, voiding well, passing flatus, BM, pain decreased Objective Last 24 Hour Vital Signs Date Time Temp Pulse Resp B/P (MAP) Pulse Ox O2 Delivery O2 Flow Rate FiO2 06/12/20 09:00 Room Air 06/12/20 08:00 97.6 75 18 144/61 (88) 98 06/12/20 04:00 98.1 57 18 151/74 (99) 98 06/11/20 23:56 97.9 60 16 137/80 (99) 97 06/11/20 21:00 Room Air 06/11/20 20:00 98.2 54 17 145/78 (100) 98 06/11/20 16:00 97.9 70 18 156/66 (96) 94 I&O Intake and Output 06/11/20 06/12/20 19:00 07:00 Output Total 300 ml Balance -300 ml Output Urine Total 300 ml # Voids 2 Cardiovascular: RSR Respiratory: clear Abdomen: soft, flat, non-tender, present bowel sounds, non-distended Extremities: no edema, no tenderness, no cyanosis Laboratory Tests Test 06/11/20 19:58 06/12/20 05:00 06/12/20 05:15 06/12/20 11:22 POC Whole Blood Glucose 226 MG/DL (74-106) H 90 MG/DL (74-106) 257 MG/DL (74-106) H Urine Color Pale yellow Urine Appearance Cloudy Urine pH 5 (4.5-8.0) Urine Specific [place] 1.020 (1.005-1.035) Urine Protein 3+ (NEGATIVE) H Urine Glucose (UA) 4+ (NEGATIVE) H Urine Ketones 3+ (NEGATIVE) H Urine Blood 1+ (NEGATIVE) H Urine Nitrite Positive (NEGATIVE) H Urine Bilirubin Negative (NEGATIVE) Urine Urobilinogen Normal MG/DL (0.0-1.0) Urine Leukocyte Esterase 3+ (NEGATIVE) H Urine RBC Tntc /HPF (0 - 2) H Urine WBC Tntc /HPF (0 - 2) H Urine Squamous Epithelial Cells Few /LPF (NONE/OCC) Urine Bacteria Few /HPF (NONE) Urine Yeast Many /HPF (NONE) H Urine Random Sodium 26 mmol/L (20-110) Plan Problems: (1) Constipation (2) Diabetes mellitus (3) Abdominal pain Assessment & Plan: 79 female abdominal pain cramping generalized in nature. CT reviewed large hiatal hernia postsurgical changes and clips identified around the esophagus GE junction potential prior intervention for hernia. Stomach and GI otherwise noted. Secondary to the duodenum noted. Abdominal exam fairly benign labs noted. Nonobstructed. Potentially constipated. Initiate bowel regimen. Okay for diet. Will follow with serial abdominal exams. Thank you let me participate patient's care Redemonstration of large hiatal hernia, possibly paraesophageal in nature. Correlate with dedicated chest imaging and/or esophagram for better characterization. Postsurgical clips are seen adjacent to the distal esophagus and at the GE junction, correlate with surgical history. Prominent bilateral groundglass opacities of the visualized thorax are noted. Findings may represent multifocal infection. Typical and atypical etiologies can be considered. Aspiration may also be an etiology of these findings. There is no pleural effusion of the visualized lung bases. Coronary artery calcification is noted. Solid organ evaluation is limited due to noncontrast technique. Patient is status post cholecystectomy. The unenhanced liver is grossly unremarkable. A stable 0.6 cm right posterior perihepatic nodule is identified in image 38 series 3. The pancreas demonstrates diffuse parenchymal atrophy, without pancreatic ductal dilatation. The spleen is unremarkable. There is bilateral adrenal gland thickening and nodularity with probable 1.5 cm right adrenal adenoma. Correlation with abdominal MRI is recommended for definitive characterization. There is no hydronephrosis or nephrolithiasis of the kidneys. Evaluation of the bowel is limited due to lack of oral contrast. Large hiatal hernia, possibly paraesophageal in nature as described above. Stomach is otherwise under distended, limiting evaluation. Postsurgical clips are seen in the region of the second portion of the duodenum. High density localized to the first portion of the duodenum, image 39 series 3, is nonspecific and may represent focal blood products. Consider correlation with the EGD for better characterization. There is no small bowel obstruction. The appendix is not inflamed. There is mild stool burden of the colon which limits evaluation of the colonic mucosa. Prominent soft tissue thickening is noted at the rectum near the anal verge. Correlation with colonoscopy is recommended to exclude neoplasm in this location, versus other proctitis. There is no ascites, free air, or loculated fluid collection. Mild haziness of the small bowel mesentery stable. Small volume nodes are identified, particularly along the pelvic sidewalls, left greater than right. Urinary bladder is relatively underdistended, living evaluation. Tiny nodular focus along the anterior superior margin of the urinary bladder, image 121 series 3, is unchanged, likely related to urachal remnant. Patient is status post hysterectomy. There is no aneurysm of the abdominal aorta. Moderate to severe atheromatous changes are identified. Stable soft tissue infiltrative changes are noted along the anterior superficial soft tissues. Correlate for injection. Cellulitis is considered less likely given chronicity. Degenerative changes of the visualized thoracolumbar spine are identified. There is redemonstration of grade 1 anterolisthesis of L3 on L4 and severe height loss at L4-L5 levels. Correlate with spinal MRI as clinically warranted. IMPRESSION: Prominent bilateral groundglass opacities of the visualized thorax. Findings may represent multifocal infection. Typical and atypical etiologies can be considered, include COVID pneumonia. Correlate with dedicated CT of the chest for better characterization. Follow to resolution with repeat chest CT in 6 weeks. Aspiration may also be an etiology of these findings as well, given the large hiatal hernia, possibly paraesophageal in morphology. Postsurgical clips are seen in the region of the second portion of the duodenum. High density localized to the first portion of the duodenum, image 39 series 3, is nonspecific and may represent focal blood products. Consider correlation with the EGD for better characterization. Correlate for signs and symptoms of GI bleeding. Prominent soft tissue thickening is noted at the rectum near the anal verge. Correlation with colonoscopy is recommended to exclude neoplasm in this location, versus other proctitis. Stable soft tissue infiltrative changes are noted along the anterior superficial soft tissues. Correlate for injection. Soft tissue cellulitis is considered less likely. Clinical correlation is recommended. A nonspecific indeterminate right posterior perihepatic nodule measuring 0.6 cm is stable. Follow-up CT abdomen pelvis is recommended in 6 months to evaluate for stability of these findings. (4) Pneumonia due to COVID-19 virus Assessment & Plan: Covid positive treatment as per amisha and RIO will follow thank you (5) Hypertension (6) ACS (acute coronary syndrome) (7) Major depression (8) PUD (peptic ulcer disease) (9) GERD (gastroesophageal reflux disease) (10) DDD (degenerative disc disease), lumbar (11) Radiculopathy of lumbar region (12) Accelerated hypertension (13) Vitreous hemorrhage of right eye (14) Diabetes mellitus type II, uncontrolled (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 Taco Brock Jun 12, 2020 12:24
--- NOTE | 2020-06-12 13:42 | Internal Med Progress Note ---
Subjective Date of Service: Jun 12, 2020 Physician Name Isael Hutton Attending Physician Emre Trejo MD Current Medications Medications (Trade) Dose Ordered Sig/Hever Route PRN Reason Start Time Stop Time Status Last Admin Dose Admin Acetaminophen (Tylenol) 650 mg Q6H PRN ORAL Temp >100.5 06/11/20 10:45 07/11/20 10:44 Acetaminophen (Tylenol) 650 mg Q6H PRN ORAL Mild Pain (Pain Scale 1-3) 06/11/20 11:15 07/11/20 11:14 Acetaminophen/ Hydrocodone Bitart ([place] 5/325) 1 tab Q6H PRN ORAL Moderate Pain (Pain Scale 4-6) 06/11/20 10:45 06/18/20 10:44 Aspirin (Ecotrin) 81 mg DAILY ORAL 06/12/20 09:00 07/27/20 08:59 06/12/20 09:35 Bethanechol Chloride (Urecholine) 10 mg THREE TIMES A DAY ORAL 06/11/20 18:00 07/11/20 17:59 06/12/20 12:59 Brimonidine Tartrate (Alphagan) 1 drop Q8HR RIGHT EYE 06/11/20 22:00 09/09/20 21:59 06/12/20 13:00 Ceftriaxone Sodium 1 gm/ Dextrose 55 ml @ 110 mls/hr DAILY IVPB 06/12/20 09:00 06/19/20 08:59 06/12/20 09:36 Dextrose (Dextrose 50%) 25 ml Q30M PRN IV Hypoglycemia 06/11/20 10:45 09/09/20 10:44 Dextrose (Dextrose 50%) 50 ml Q30M PRN IV Hypoglycemia 06/11/20 10:45 09/09/20 10:44 Docusate Sodium (Colace) 100 mg THREE TIMES A DAY ORAL 06/11/20 13:00 07/11/20 12:59 06/12/20 12:59 Enoxaparin Sodium (Lovenox) 40 mg DAILY SUBQ 06/12/20 09:00 09/10/20 08:59 06/12/20 09:38 Insulin Aspart (NovoLOG Mix 70/ 30) 50 units EVERY 12 HOURS SUBQ 06/11/20 21:00 09/09/20 20:59 06/12/20 09:42 Insulin Aspart (NovoLOG) BEFORE MEALS AND HS SUBQ 06/11/20 11:30 09/09/20 11:29 06/12/20 11:38 Morphine Sulfate (Morphine Sulfate) 4 mg Q4H PRN IVP Severe Pain (Pain Scale 7-10) 06/11/20 10:45 06/18/20 10:44 06/11/20 16:53 Ondansetron HCl (Zofran) 4 mg Q4H PRN IVP Nausea & Vomiting 06/11/20 10:45 07/11/20 10:44 Pantoprazole (Protonix) 40 mg EVERY 12 HOURS IVP 06/11/20 21:00 07/11/20 20:59 06/12/20 09:37 Sodium Chloride 1,000 ml @ 50 mls/hr Q20H IV 06/12/20 10:15 07/12/20 10:14 06/12/20 10:30 Timolol Maleate (timoloL maleate 0.5% Op Soln) 1 drop TWICE A DAY BOTH EYES 06/11/20 18:00 07/11/20 17:59 06/12/20 09:37 Allergies: Coded Allergies: CODEINE (Verified Allergy, Mild, Itching, 08/26/13) SULFA (SULFONAMIDE ANTIBIOTICS) (Verified Adverse Reaction, Mild, 08/26/13) VOMIT ROS Limited/Unobtainable: No Constitutional: Reports: no symptoms HEENT: Reports: no symptoms Cardiovascular: Reports: no symptoms Respiratory: Reports: no symptoms Gastrointestinal/Abdominal: Reports: no symptoms Genitourinary: Reports: no symptoms Neurologic/Psychiatric: Reports: no symptoms Subjective 79 YO F admitted with abdominal pain. Now COVID 19 pneumonia. Cover for Int Quang-Dr Trejo. Objective Last Vital Signs Date Time Temp Pulse Resp B/P (MAP) Pulse Ox O2 Delivery O2 Flow Rate FiO2 06/12/20 12:00 97.1 71 19 164/70 (101) 91 06/12/20 09:00 Room Air Laboratory Tests Test 06/11/20 19:58 06/12/20 05:00 06/12/20 05:15 06/12/20 11:22 POC Whole Blood Glucose 226 MG/DL (74-106) H 90 MG/DL (74-106) 257 MG/DL (74-106) H Urine Color Pale yellow Urine Appearance Cloudy Urine pH 5 (4.5-8.0) Urine Specific [place] 1.020 (1.005-1.035) Urine Protein 3+ (NEGATIVE) H Urine Glucose (UA) 4+ (NEGATIVE) H Urine Ketones 3+ (NEGATIVE) H Urine Blood 1+ (NEGATIVE) H Urine Nitrite Positive (NEGATIVE) H Urine Bilirubin Negative (NEGATIVE) Urine Urobilinogen Normal MG/DL (0.0-1.0) Urine Leukocyte Esterase 3+ (NEGATIVE) H Urine RBC Tntc /HPF (0 - 2) H Urine WBC Tntc /HPF (0 - 2) H Urine Squamous Epithelial Cells Few /LPF (NONE/OCC) Urine Bacteria Few /HPF (NONE) Urine Yeast Many /HPF (NONE) H Urine Random Sodium 26 mmol/L (20-110) Microbiology Date/Time Source Procedure Growth Status 06/11/20 04:10 Nasopharynx SARS-CoV-2 RdRp Gene Assay - Final Complete Intake and Output 06/11/20 06/12/20 19:00 07:00 Output Total 300 ml Balance -300 ml Output Urine Total 300 ml # Voids 2 Objective PHYSICAL EXAMINATION: GENERAL: The patient is well-developed and well-nourished female, in moderate abdominal pain distress. HEENT: Eyes, pupils are equal and responsive to light and accommodation. Extraocular movements are intact. NECK: Supple without lymphadenopathy. CHEST: Lungs are clear to auscultation bilaterally without wheezes or rales. CARDIOVASCULAR: Regular rate. S1 and S2 are normal without murmurs, rubs, or gallops. ABDOMEN: Soft, nontender, nondistended. Positive bowel sounds. No evidence of hepatosplenomegaly. Currently, no rebound or guarding noted. EXTREMITIES: Negative for clubbing, cyanosis, or edema. RECTAL/GENITAL: Not performed. NEUROLOGIC: Cranial nerves II through XII are grossly intact without focal deficits. Motor strength is 5/5 bilaterally. Deep tendon reflexes are 2+ plantar. Assessment/Plan Assessment/Plan ASSESSMENT: This is a 79-year-old female. 1. COVID-19 positive. 2. Bilateral pneumonia. 3. Abdominal pain. 4. Diabetes type 2. 5. Hypertension. 6. Renal failure. 7. Glaucoma. 8. Urinary frequency. TREATMENT: 1. COVID-19/bilateral pneumonia. An Infectious Disease consultation has been obtained with Dr. Ahuja . A Pulmonary consultation has been obtained with Dr. Ulloa. Follow recommendations of Pulmonary and Infectious Diseases. The patient has been started empirically on azithromycin and ceftriaxone. The patient has been started on Decadron. 2. Abdominal pain, this may be secondary to COVID-19. The patient is currently requesting morphine for abdominal pain. A urine culture is pending. 3. Diabetes type 2. Continue 70/30 insulin as above. A NovoLog sliding scale has been instituted. 4. Hypertension. The patient is currently receiving p.r.n. hydralazine. 5. Renal failure. Nephrology consultation has been obtained with Dr. Reeves. 6. Glaucoma. Continue eye drops as above. Isael Hutton MD Jun 12, 2020 13:42
--- NOTE | 2020-06-12 15:18 | NUR ---
NURSE NOTES: Lab person was not able to get blood sample d/t patient was not allow Lab person to use a vein on hands or antecubitals either.
[2020-06-12 16:00] VITALS: BP 132/69
--- NOTE | 2020-06-12 16:33 | Consultation ---
History of Present Illness General Date patient seen: Jun 12, 2020 Time patient seen: 16:29 Chief Complaint: Abdominal Pain Referring physician: PCP Reason for Consultation: COVID+ Present Illness HPI 79 F h/o DM and HTN p/w abd pain 2/2 UTI noted to be COVID + CXR with b inf and CT AP with HH. Initially started on Dex but D/C'd 2/2 normal SaO2 but now 90% on RA. + cough + SOB no FC no CP + abd pain no NVDC + dysuria Allergies: Coded Allergies: CODEINE (Verified Allergy, Mild, Itching, 08/26/13) SULFA (SULFONAMIDE ANTIBIOTICS) (Verified Adverse Reaction, Mild, 08/26/13) VOMIT Medication History Scheduled Amlodipine Besylate (Norvasc), 10 MG ORAL DAILY, (Reported) Ascorbic Acid* (Vitamin C*), 500 MG ORAL DAILY, (Reported) Aspirin* (Aspir 81*), 81 MG ORAL DAILY, (Reported) Cholecalciferol (Vitamin D3) (Replesta), 50,000 UNIT PO WEEKLY, (Reported) Docusate Sodium (Docusate Sodium), 100 MG ORAL BID, (Reported) Docusate Sodium* (Colace*), 100 MG ORAL TWICE A DAY Ferrous Sulfate (Ferosul), 325 MG PO BID, (Reported) Hum Insulin Nph/Reg Insulin Hm (Humulin 70-30 Vial), 50 SUBQ BIDAC, (Reported) Hydrochlorothiazide* (Hydrochlorothiazide*), 25 MG ORAL DAILY, (Reported) Insulin Regular, Human* (Novolin R*), 0 SUBQ .SLIDING SCALE, (Reported) Lansoprazole* (Prevacid*), 30 MG ORAL BID, (Reported) Lidocaine Patch* (Lidoderm Patch*), 2 PATCH TOPIC DAILY, (Reported) Polyethylene Glycol 3350* (Miralax*), 17 GM ORAL DAILY Pregabalin* (Lyrica*), 75 MG ORAL BID, (Reported) Simvastatin (Zocor), 20 MG ORAL BEDTIME, (Reported) Sitagliptin Phos/Metformin Hcl (Janumet 50-500 Mg Tablet), Unknown Dose ORAL BID, (Reported) Scheduled PRN Carisoprodol (Soma), 250 MG PO Q8HR PRN for Muscle Spasm, (Reported) Clonidine Hcl* (Catapres*), 0.1 MG ORAL DAILY PRN for ELEVATED BLOOD PRESSURE, (Reported) Hydrocodone Bit/Acetaminophen 5-325* (Ramsay 5-325*), 1 TAB ORAL Q8HR PRN for For Pain, (Reported) Patient History History Provided By: Patient Healthcare decision maker Resuscitation status Advanced Directive on File Past Medical/Surgical History Past Medical/Surgical History: (1) Diabetes mellitus (2) Hypertension (3) GERD (gastroesophageal reflux disease) (4) PUD (peptic ulcer disease) (5) DDD (degenerative disc disease), lumbar (6) Vitreous hemorrhage of right eye Review of Systems All Other Systems: negative except mentioned in HPI Physical Exam General Appearance: WD/WN, no apparent distress, alert, lethargic Lines, tubes and drains: peripheral HEENT: normocephalic, atraumatic, anicteric, mucous membranes moist Neck: non-tender, normal alignment, supple, normal inspection Respiratory/Chest: chest wall non-tender, lungs clear, normal breath sounds, no respiratory distress, no accessory muscle use, respiratory distress Cardiovascular/Chest: normal peripheral pulses, normal rate, regular rhythm Abdomen: normal bowel sounds, non tender, soft, no organomegaly, no mass Extremities: normal range of motion, non-tender Skin Exam: normal pigmentation, warm/dry Musculoskeletal: normal muscle bulk Last 24 Hour Vital Signs Date Time Temp Pulse Resp B/P (MAP) Pulse Ox O2 Delivery O2 Flow Rate FiO2 06/12/20 12:00 97.1 71 19 164/70 (101) 91 06/12/20 09:00 Room Air 06/12/20 08:00 97.6 75 18 144/61 (88) 98 06/12/20 04:00 98.1 57 18 151/74 (99) 98 06/11/20 23:56 97.9 60 16 137/80 (99) 97 06/11/20 21:00 Room Air 06/11/20 20:00 98.2 54 17 145/78 (100) 98 Intake and Output 06/11/20 06/12/20 19:00 07:00 Output Total 300 ml Balance -300 ml Output Urine Total 300 ml # Voids 2 Laboratory Tests Test 06/11/20 19:58 06/12/20 05:00 06/12/20 05:15 06/12/20 11:22 POC Whole Blood Glucose 226 MG/DL (74-106) H 90 MG/DL (74-106) 257 MG/DL (74-106) H Urine Color Pale yellow Urine Appearance Cloudy Urine pH 5 (4.5-8.0) Urine Specific [place] 1.020 (1.005-1.035) Urine Protein 3+ (NEGATIVE) H Urine Glucose (UA) 4+ (NEGATIVE) H Urine Ketones 3+ (NEGATIVE) H Urine Blood 1+ (NEGATIVE) H Urine Nitrite Positive (NEGATIVE) H Urine Bilirubin Negative (NEGATIVE) Urine Urobilinogen Normal MG/DL (0.0-1.0) Urine Leukocyte Esterase 3+ (NEGATIVE) H Urine RBC Tntc /HPF (0 - 2) H Urine WBC Tntc /HPF (0 - 2) H Urine Squamous Epithelial Cells Few /LPF (NONE/OCC) Urine Bacteria Few /HPF (NONE) Urine Yeast Many /HPF (NONE) H Urine Random Sodium 26 mmol/L (20-110) Height (Feet): 5 Height (Inches): 8.00 Weight (Pounds): 200 Medications Current Medications Medications (Trade) Dose Ordered Sig/Hever Route PRN Reason Start Time Stop Time Status Last Admin Dose Admin Acetaminophen (Tylenol) 650 mg Q6H PRN ORAL Temp >100.5 06/11/20 10:45 07/11/20 10:44 Acetaminophen (Tylenol) 650 mg Q6H PRN ORAL Mild Pain (Pain Scale 1-3) 06/11/20 11:15 07/11/20 11:14 Acetaminophen/ Hydrocodone Bitart (Ramsay 5/325) 1 tab Q6H PRN ORAL Moderate Pain (Pain Scale 4-6) 06/11/20 10:45 06/18/20 10:44 Aspirin (Ecotrin) 81 mg DAILY ORAL 06/12/20 09:00 07/27/20 08:59 06/12/20 09:35 Bethanechol Chloride (Urecholine) 10 mg THREE TIMES A DAY ORAL 06/11/20 18:00 07/11/20 17:59 06/12/20 12:59 Brimonidine Tartrate (Alphagan) 1 drop Q8HR RIGHT EYE 06/11/20 22:00 09/09/20 21:59 06/12/20 13:00 Ceftriaxone Sodium 1 gm/ Dextrose 55 ml @ 110 mls/hr DAILY IVPB 06/12/20 09:00 06/19/20 08:59 06/12/20 09:36 Dextrose (Dextrose 50%) 25 ml Q30M PRN IV Hypoglycemia 06/11/20 10:45 09/09/20 10:44 Dextrose (Dextrose 50%) 50 ml Q30M PRN IV Hypoglycemia 06/11/20 10:45 09/09/20 10:44 Docusate Sodium (Colace) 100 mg THREE TIMES A DAY ORAL 06/11/20 13:00 07/11/20 12:59 06/12/20 12:59 Enoxaparin Sodium (Lovenox) 40 mg DAILY SUBQ 06/12/20 09:00 09/10/20 08:59 06/12/20 09:38 Insulin Aspart (NovoLOG Mix 70/ 30) 50 units EVERY 12 HOURS SUBQ 06/11/20 21:00 09/09/20 20:59 06/12/20 09:42 Insulin Aspart (NovoLOG) BEFORE MEALS AND HS SUBQ 06/11/20 11:30 09/09/20 11:29 06/12/20 11:38 Morphine Sulfate (Morphine Sulfate) 4 mg Q4H PRN IVP Severe Pain (Pain Scale 7-10) 06/11/20 10:45 06/18/20 10:44 06/11/20 16:53 Ondansetron HCl (Zofran) 4 mg Q4H PRN IVP Nausea & Vomiting 06/11/20 10:45 07/11/20 10:44 Pantoprazole (Protonix) 40 mg EVERY 12 HOURS IVP 06/11/20 21:00 07/11/20 20:59 06/12/20 09:37 Sodium Chloride 1,000 ml @ 50 mls/hr Q20H IV 06/12/20 10:15 07/12/20 10:14 06/12/20 10:30 Timolol Maleate (timoloL maleate 0.5% Op Soln) 1 drop TWICE A DAY BOTH EYES 06/11/20 18:00 07/11/20 17:59 06/12/20 09:37 Assessment/Plan Problem List: (1) Elevated d-dimer ICD Codes: R79.89 - Other specified abnormal findings of blood chemistry SNOMED: 294184830 (2) Hypoxemia ICD Codes: R09.02 - Hypoxemia SNOMED: 915936133 (3) UTI (urinary tract infection) ICD Codes: N39.0 - Urinary tract infection, site not specified SNOMED: 03739005 (4) Pneumonia due to COVID-19 virus ICD Codes: U07.1 - COVID-19; J12.82 - Pneumonia due to coronavirus disease 2019 SNOMED: 782623934987888822 (5) Abdominal pain ICD Codes: R10.9 - Unspecified abdominal pain SNOMED: 44446767 Qualifiers: Qualified Codes: R10.84 - Generalized abdominal pain (6) Diabetes mellitus type II, uncontrolled ICD Codes: E11.65 - Type 2 diabetes mellitus with hyperglycemia SNOMED: 52415786, 804587195 (7) Hypertension ICD Codes: I10 - Essential (primary) hypertension SNOMED: 27482400 Qualifiers: Qualified Codes: I10 - Essential (primary) hypertension Status: doing well Assessment/Plan: Optimize pulmonary hygiene/mobilize as tolerated PRN O2 Start Dex given SaO2 90% on RA Consider REM as < 94% on RA Abx for UTI per ID Monitor inflammatory markers Monitor volumes and renal function F/U Duplex bLE DVT Px: LMWH FC Bradley Ulloa MD Jun 12, 2020 16:33
[2020-06-12] MEDS ORDERED: guaiFENesin 100mg/5ml Liq ud ORAL PRN (17:30)
--- NOTE | 2020-06-12 19:04 | NUR ---
NURSE HAND-OFF: Important Events on Shift:[Started dexamethasone, Started IVF ] Patient Status: [stable] Diet: [CCHO med] Pending Orders: [] Pending Results/Labs:[] Pending MD notification:[] Latest Vital Signs: Temperature 98.2 , Pulse 71 , B/P 132 /69 , Respiratory Rate 19 , O2 SAT 66 , Room Air, O2 Flow Rate . Vital Sign Comment: [] Latest Rangel Fall Score: 85 Fall Risk: High Risk Safety Measures: Call light Within Reach, Bed Alarm Zone 2, Side Rails Side Rails x2, Bed position Low and Locked. Fall Precautions: Yellow Socks Door Sign Patient Fall Education Report given to [Tian GARNER].
--- NOTE | 2020-06-12 19:05 | NUR ---
NURSE NOTES: Received report from PATSY Gibson. Pt is in bed on room air saturating at 90% and MD is aware. IVF infusing well. Bed locked and in lowest position, call light within reach. Will continue to monitor.
[2020-06-12 19:17] VITALS: BP 132/69
[2020-06-12 19:19] VITALS: BP 132/69
[2020-06-12] MEDS: Morphine Sulfate 4mg/ml Inj (IV USE ONLY) IVP PRN (21:20)
[2020-06-13] VITALS (7 sets, daily range): BP systolic 117–160; BP diastolic 49–73
[2020-06-13] MEDS: Brimonidine 0.2% Opth Sol RIGHT EYE SCH ×3 (06:44→21:48)
[2020-06-13] MEDS: NovoLOG Insulin Flexpen SUBQ SCH ×4 (06:53→21:00)
[2020-06-13] MEDS: Morphine Sulfate 4mg/ml Inj (IV USE ONLY) IVP PRN (07:04)
--- NOTE | 2020-06-13 07:05 | NUR ---
NURSE HAND-OFF: Important Events on Shift: Pain management Patient Status: awake and eating Diet: cardiac diet Pending Orders: Pending Results/Labs: Pending MD notification: Latest Vital Signs: Temperature 98.3 , Pulse 71 , B/P 135 /70 , Respiratory Rate 18 , O2 SAT 97 , Room Air, O2 Flow Rate . Vital Sign Comment: VSS Latest Rangel Fall Score: 85 Fall Risk: High Risk Safety Measures: Call light Within Reach, Bed Alarm Zone 2, Side Rails Side Rails x2, Bed position Low and Locked. Fall Precautions: Yellow Socks Door Sign Patient Fall Education Report given to PATSY Renteria.
--- NOTE | 2020-06-13 07:06 | NUR ---
NURSE NOTES: Received report from Tian GARNER. Patient awake, alert and oriented x4, no acute distress. Patient is on room air, no SOB noted. IV fluids running per order. Bed in lowest position, call light in reach, side rails up. Updated on care plan.
[2020-06-13 07:08] LABS: ANION GAP 6 mmol/L (5-15); BASOPHILS % (AUTO) 0.7 % (0.0-2.0); BLOOD UREA NITROGEN 16 mg/dL (7-18); CALCIUM 8.8 MG/DL (8.5-10.1); CARBON DIOXIDE 26 MMOL/L (21-32); CHLORIDE 107 MMOL/L (98-107); EOSINOPHILS % (AUTO) 0.1 % (0.0-3.0); HEMATOCRIT 31.9 % (37.0-47.0); HEMOGLOBIN 10.1 G/DL (12.0-16.0); LYMPHOCYTES % (AUTO) 20.7 % (20.0-45.0); MEAN CORPUSCULAR VOLUME 88 FL (80-99); MONOCYTES % (AUTO) 7.2 % (1.0-10.0); NEUTROPHILS % (AUTO) 71.3 % (45.0-75.0); PLATELET COUNT 282 K/UL (150-450); POTASSIUM 4.2 MMOL/L (3.5-5.1); RED BLOOD COUNT 3.63 M/UL (4.20-5.40); RED CELL DISTRIBUTION WIDTH 13.1 % (11.6-14.8); SODIUM 139 MMOL/L (136-145)
--- NOTE | 2020-06-13 08:30 | NUR ---
NURSE NOTES: patient was seen by . will discharge the patient after PT. Addendum: 06/13/20 at 1348 by GENARO MEAD RN wrong patient entry. this is regarding [address]
--- NOTE | 2020-06-13 08:33 | Surgery Progress Note ---
Surgery Progress Note Subjective Additional Comments no acute events tolerating diet labs okay no n/v/f/c Objective Last 24 Hour Vital Signs Date Time Temp Pulse Resp B/P (MAP) Pulse Ox O2 Delivery O2 Flow Rate FiO2 06/13/20 04:00 98.3 18 135/70 (91) 97 06/13/20 00:00 97.9 18 117/49 (71) 98 06/12/20 21:00 Room Air 06/12/20 19:19 98.2 19 132/69 (90) 96 06/12/20 19:17 () 06/12/20 16:00 98.2 19 132/69 (90) 96 06/12/20 16:00 98.2 19 132/69 (90) 66 06/12/20 12:00 97.1 71 19 164/70 (101) 91 06/12/20 09:00 Room Air I&O Intake and Output 06/12/20 06/13/20 19:00 07:00 Intake Total 240 ml Balance 240 ml Intake Oral 240 ml Cardiovascular: RSR Respiratory: decreased breath sounds Abdomen: soft, flat, non-tender, present bowel sounds, non-distended Extremities: no edema, no tenderness, no cyanosis Laboratory Tests Test 06/12/20 11:22 06/12/20 16:27 06/12/20 20:48 06/13/20 06:34 POC Whole Blood Glucose 257 MG/DL (74-106) H 75 MG/DL (74-106) 72 MG/DL (74-106) L White Blood Count 4.0 K/UL (4.8-10.8) L Red Blood Count 3.63 M/UL (4.20-5.40) L Hemoglobin 10.1 G/DL (12.0-16.0) L Hematocrit 31.9 % (37.0-47.0) L Mean Corpuscular Volume 88 FL (80-99) Mean Corpuscular Hemoglobin 27.7 PG (27.0-31.0) Mean Corpuscular Hemoglobin Concent 31.5 G/DL (32.0-36.0) L Red Cell Distribution Width 13.1 % (11.6-14.8) Platelet Count 282 K/UL (150-450) Mean Platelet Volume 6.9 FL (6.5-10.1) Neutrophils (%) (Auto) 71.3 % (45.0-75.0) Lymphocytes (%) (Auto) 20.7 % (20.0-45.0) Monocytes (%) (Auto) 7.2 % (1.0-10.0) Eosinophils (%) (Auto) 0.1 % (0.0-3.0) Basophils (%) (Auto) 0.7 % (0.0-2.0) Sodium Level 139 MMOL/L (136-145) Potassium Level 4.2 MMOL/L (3.5-5.1) Chloride Level 107 MMOL/L (98-107) Carbon Dioxide Level 26 MMOL/L (21-32) Anion Gap 6 mmol/L (5-15) Blood Urea Nitrogen 16 mg/dL (7-18) Creatinine 1.0 MG/DL (0.55-1.30) Estimat Glomerular Filtration Rate > 60 mL/min (>60) Glucose Level 182 MG/DL (74-106) H Calcium Level 8.8 MG/DL (8.5-10.1) Test 06/13/20 06:49 POC Whole Blood Glucose 173 MG/DL (74-106) H Plan Problems: (1) Constipation (2) Diabetes mellitus (3) Abdominal pain Assessment & Plan: 79 female abdominal pain cramping generalized in nature. CT reviewed large hiatal hernia postsurgical changes and clips identified around the esophagus GE junction potential prior intervention for hernia. Stomach and GI otherwise noted. Secondary to the duodenum noted. Abdominal exam fairly benign labs noted. Nonobstructed. Potentially constipated. Initiate bowel regimen. Okay for diet. Will follow with serial abdominal exams. Thank you let me participate patient's care Redemonstration of large hiatal hernia, possibly paraesophageal in nature. Correlate with dedicated chest imaging and/or esophagram for better characterization. Postsurgical clips are seen adjacent to the distal esophagus and at the GE junction, correlate with surgical history. Prominent bilateral groundglass opacities of the visualized thorax are noted. Findings may represent multifocal infection. Typical and atypical etiologies can be considered. Aspiration may also be an etiology of these findings. There is no pleural effusion of the visualized lung bases. Coronary artery calcification is noted. Solid organ evaluation is limited due to noncontrast technique. Patient is status post cholecystectomy. The unenhanced liver is grossly unremarkable. A stable 0.6 cm right posterior perihepatic nodule is identified in image 38 series 3. The pancreas demonstrates diffuse parenchymal atrophy, without pancreatic ductal dilatation. The spleen is unremarkable. There is bilateral adrenal gland thickening and nodularity with probable 1.5 cm right adrenal adenoma. Correlation with abdominal MRI is recommended for definitive characterization. There is no hydronephrosis or nephrolithiasis of the kidneys. Evaluation of the bowel is limited due to lack of oral contrast. Large hiatal hernia, possibly paraesophageal in nature as described above. Stomach is otherwise under distended, limiting evaluation. Postsurgical clips are seen in the region of the second portion of the duodenum. High density localized to the first portion of the duodenum, image 39 series 3, is nonspecific and may represent focal blood products. Consider correlation with the EGD for better characterization. There is no small bowel obstruction. The appendix is not inflamed. There is mild stool burden of the colon which limits evaluation of the colonic mucosa. Prominent soft tissue thickening is noted at the rectum near the anal verge. Correlation with colonoscopy is recommended to exclude neoplasm in this location, versus other proctitis. There is no ascites, free air, or loculated fluid collection. Mild haziness of the small bowel mesentery stable. Small volume nodes are identified, particularly along the pelvic sidewalls, left greater than right. Urinary bladder is relatively underdistended, living evaluation. Tiny nodular focus along the anterior superior margin of the urinary bladder, image 121 series 3, is unchanged, likely related to urachal remnant. Patient is status post hysterectomy. There is no aneurysm of the abdominal aorta. Moderate to severe atheromatous changes are identified. Stable soft tissue infiltrative changes are noted along the anterior superficial soft tissues. Correlate for injection. Cellulitis is considered less likely given chronicity. Degenerative changes of the visualized thoracolumbar spine are identified. There is redemonstration of grade 1 anterolisthesis of L3 on L4 and severe height loss at L4-L5 levels. Correlate with spinal MRI as clinically warranted. IMPRESSION: Prominent bilateral groundglass opacities of the visualized thorax. Findings may represent multifocal infection. Typical and atypical etiologies can be considered, include COVID pneumonia. Correlate with dedicated CT of the chest for better characterization. Follow to resolution with repeat chest CT in 6 weeks. Aspiration may also be an etiology of these findings as well, given the large hiatal hernia, possibly paraesophageal in morphology. Postsurgical clips are seen in the region of the second portion of the duodenum. High density localized to the first portion of the duodenum, image 39 series 3, is nonspecific and may represent focal blood products. Consider correlation with the EGD for better characterization. Correlate for signs and symptoms of GI bleeding. Prominent soft tissue thickening is noted at the rectum near the anal verge. Correlation with colonoscopy is recommended to exclude neoplasm in this location, versus other proctitis. Stable soft tissue infiltrative changes are noted along the anterior superficial soft tissues. Correlate for injection. Soft tissue cellulitis is considered less likely. Clinical correlation is recommended. A nonspecific indeterminate right posterior perihepatic nodule measuring 0.6 cm is stable. Follow-up CT abdomen pelvis is recommended in 6 months to evaluate for stability of these findings. (4) Pneumonia due to COVID-19 virus Assessment & Plan: Covid positive treatment as per Ayana will follow thank you (5) Hypertension (6) ACS (acute coronary syndrome) (7) Major depression (8) PUD (peptic ulcer disease) (9) GERD (gastroesophageal reflux disease) (10) DDD (degenerative disc disease), lumbar (11) Radiculopathy of lumbar region (12) Accelerated hypertension (13) Vitreous hemorrhage of right eye (14) Diabetes mellitus type II, uncontrolled (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 Taco Brock Jun 13, 2020 08:33
--- NOTE | 2020-06-13 08:50 | NUR ---
NURSE NOTES: patient was seen by PT. patient was able to walk with walker, needs some supervision for safety d/t patient trying to move fast. notified Dr. Huerta and ordered progressive 2000 HHS upon discharge. Spoke to Rabia Donnelly/daughter, she knows the patient's base line, also the patient has a vp home health who visit the patient daily. Addendum: 06/13/20 at 1346 by GENARO MEAD RN wrong patient entry this is regard about notes for [address]
[2020-06-13] MEDS: Pantoprazole Inj IVP SCH ×2 (09:11→21:48)
[2020-06-13] MEDS: timoloL maleate 0.5% Op Soln 2.5ml BOTH EYES SCH ×2 (09:12→17:18)
[2020-06-13] MEDS: cefTRIAXone 1 GM in D5W 55 ML IVPB SCH (09:12)
--- NOTE | 2020-06-13 09:12 | Infectious Diseases Prog Note ---
Assessment/Plan 79yo F with: COVID+ Doing well on RA Normal WBC 06/11 COVID rapid positive CXR: Multifocal lung parenchymal opacities are better seen on the recent CT abdomen pelvis, new since prior CT from 03/16/2020. There is a hiatal hernia also better seen on the recent CT abdomen pelvis. R/o UTI 06/11 UA+, UCx p Cr 1.4 Abd pain x1 week, prompting pt to come to ED 06/11 CT A/P: Prominent bilateral groundglass opacities of the visualized thorax. Postsurgical clips are seen in the region of the second portion of the duodenum. High density localized to the first portion of the duodenum, image 39 series 3, is nonspecific and may represent focal blood products. Prominent soft tissue thickening is noted at the rectum near the anal verge. Stable soft tissue infiltrative changes are noted along the anterior superficial soft tissues. A nonspecific indeterminate right posterior perihepatic nodule measuring 0.6 cm is stable. HTN Plan: Cont empiric CTX #3 for now for UTI On dex 6mg #2 per Pulm - recommend stopping soon as if remains satting 95-98% on RA Not candidate for remdesivir nor steroids given doing well on RA This hospital does not have access to convalescent plasma, and pt doing well on RA so not candidate for it anyways COVID isolation through 06/21 F/u UCx 06/11 SP fluconazole 150mg x1 for vaginal yeast infection Monitor CBC/CMP Monitor resp status Monitor temp curve, hemodynamics D/w RN Thank you for this consult. [facility] will continue to follow. Subjective Allergies: Coded Allergies: CODEINE (Verified Allergy, Mild, Itching, 08/26/13) SULFA (SULFONAMIDE ANTIBIOTICS) (Verified Adverse Reaction, Mild, 08/26/13) VOMIT AF NAD on RA, breathing stable WBC 4.0 No more pain w/ urination, decreased itching of area Still some abd pain, about same as prior, not worse Objective Last 24 Hour Vital Signs Date Time Temp Pulse Resp B/P (MAP) Pulse Ox O2 Delivery O2 Flow Rate FiO2 06/13/20 08:00 97.9 54 18 148/60 (89) 95 06/13/20 04:00 98.3 18 135/70 (91) 97 06/13/20 00:00 97.9 18 117/49 (71) 98 06/12/20 21:00 Room Air 06/12/20 19:19 98.2 19 132/69 (90) 96 06/12/20 19:17 () 06/12/20 16:00 98.2 19 132/69 (90) 96 06/12/20 16:00 98.2 19 132/69 (90) 66 06/12/20 12:00 97.1 71 19 164/70 (101) 91 Height (Feet): 5 Height (Inches): 8.00 Weight (Pounds): 200 Gen: NAD HEENT: NCAT Pulm: BL chest rise on RA, non-labored Abd: Obese, soft, mildly TTP in the lower quadrants, no rebound or guarding Ext: No c/c/e Skin: No visible rashes Neuro: Awake, alert, itneractive Microbiology Date/Time Source Procedure Growth Status 06/11/20 04:10 Nasopharynx SARS-CoV-2 RdRp Gene Assay - Final Complete Laboratory Tests Test 06/12/20 11:22 06/12/20 16:27 06/12/20 20:48 06/13/20 06:34 POC Whole Blood Glucose 257 MG/DL (74-106) H 75 MG/DL (74-106) 72 MG/DL (74-106) L White Blood Count 4.0 K/UL (4.8-10.8) L Red Blood Count 3.63 M/UL (4.20-5.40) L Hemoglobin 10.1 G/DL (12.0-16.0) L Hematocrit 31.9 % (37.0-47.0) L Mean Corpuscular Volume 88 FL (80-99) Mean Corpuscular Hemoglobin 27.7 PG (27.0-31.0) Mean Corpuscular Hemoglobin Concent 31.5 G/DL (32.0-36.0) L Red Cell Distribution Width 13.1 % (11.6-14.8) Platelet Count 282 K/UL (150-450) Mean Platelet Volume 6.9 FL (6.5-10.1) Neutrophils (%) (Auto) 71.3 % (45.0-75.0) Lymphocytes (%) (Auto) 20.7 % (20.0-45.0) Monocytes (%) (Auto) 7.2 % (1.0-10.0) Eosinophils (%) (Auto) 0.1 % (0.0-3.0) Basophils (%) (Auto) 0.7 % (0.0-2.0) Sodium Level 139 MMOL/L (136-145) Potassium Level 4.2 MMOL/L (3.5-5.1) Chloride Level 107 MMOL/L (98-107) Carbon Dioxide Level 26 MMOL/L (21-32) Anion Gap 6 mmol/L (5-15) Blood Urea Nitrogen 16 mg/dL (7-18) Creatinine 1.0 MG/DL (0.55-1.30) Estimat Glomerular Filtration Rate > 60 mL/min (>60) Glucose Level 182 MG/DL (74-106) H Calcium Level 8.8 MG/DL (8.5-10.1) Test 06/13/20 06:49 06/13/20 08:35 POC Whole Blood Glucose 173 MG/DL (74-106) H 232 MG/DL (74-106) H Current Medications Medications (Trade) Dose Ordered Sig/Hever Route PRN Reason Start Time Stop Time Status Last Admin Dose Admin Acetaminophen (Tylenol) 650 mg Q6H PRN ORAL Temp >100.5 06/11/20 10:45 07/11/20 10:44 Acetaminophen (Tylenol) 650 mg Q6H PRN ORAL Mild Pain (Pain Scale 1-3) 06/11/20 11:15 07/11/20 11:14 Acetaminophen/ Hydrocodone Bitart ([place] 5/325) 1 tab Q6H PRN ORAL Moderate Pain (Pain Scale 4-6) 06/11/20 10:45 06/18/20 10:44 Aspirin (Ecotrin) 81 mg DAILY ORAL 06/12/20 09:00 07/27/20 08:59 06/12/20 09:35 Bethanechol Chloride (Urecholine) 10 mg THREE TIMES A DAY ORAL 06/11/20 18:00 07/11/20 17:59 06/12/20 17:12 Brimonidine Tartrate (Alphagan) 1 drop Q8HR RIGHT EYE 06/11/20 22:00 09/09/20 21:59 06/13/20 06:44 Ceftriaxone Sodium 1 gm/ Dextrose 55 ml @ 110 mls/hr DAILY IVPB 06/12/20 09:00 06/19/20 08:59 06/12/20 09:36 Dexamethasone Sodium Phosphate (Decadron 4mg/ml vial) 6 mg DAILY IVP 06/12/20 17:30 06/21/20 09:01 06/12/20 17:52 Dextrose (Dextrose 50%) 25 ml Q30M PRN IV Hypoglycemia 06/11/20 10:45 09/09/20 10:44 Dextrose (Dextrose 50%) 50 ml Q30M PRN IV Hypoglycemia 06/11/20 10:45 09/09/20 10:44 Docusate Sodium (Colace) 100 mg THREE TIMES A DAY ORAL 06/11/20 13:00 07/11/20 12:59 06/12/20 17:12 Enoxaparin Sodium (Lovenox) 40 mg DAILY SUBQ 06/12/20 09:00 09/10/20 08:59 06/12/20 09:38 Guaifenesin (Robitussin) 100 mg Q6H PRN ORAL For Cough 06/12/20 17:30 09/10/20 17:29 06/13/20 04:10 Insulin Aspart (NovoLOG Mix 70/ 30) 50 units EVERY 12 HOURS SUBQ 06/11/20 21:00 09/09/20 20:59 06/12/20 09:42 Insulin Aspart (NovoLOG) BEFORE MEALS AND HS SUBQ 06/11/20 11:30 09/09/20 11:29 06/13/20 06:53 Morphine Sulfate (Morphine Sulfate) 4 mg Q4H PRN IVP Severe Pain (Pain Scale 7-10) 06/11/20 10:45 06/18/20 10:44 06/13/20 07:04 Ondansetron HCl (Zofran) 4 mg Q4H PRN IVP Nausea & Vomiting 06/11/20 10:45 07/11/20 10:44 Pantoprazole (Protonix) 40 mg EVERY 12 HOURS IVP 06/11/20 21:00 07/11/20 20:59 06/12/20 21:10 Sodium Chloride 1,000 ml @ 50 mls/hr Q20H IV 06/12/20 10:15 07/12/20 10:14 06/12/20 10:30 Timolol Maleate (timoloL maleate 0.5% Op Soln) 1 drop TWICE A DAY BOTH EYES 06/11/20 18:00 07/11/20 17:59 06/12/20 17:13 Milagro Ahuja M.D. Jun 13, 2020 09:12
[2020-06-13] MEDS: Aspirin EC 81mg tab ORAL SCH (09:13)
[2020-06-13] MEDS: Bethanechol 10mg Tab ORAL SCH ×3 (09:13→17:17)
[2020-06-13] MEDS: Docusate 100mg cap ORAL SCH ×3 (09:13→17:17)
[2020-06-13] MEDS: Enoxaparin 40mg Inj SUBQ SCH (09:18)
--- NOTE | 2020-06-13 09:49 | NUR ---
*-*DISCHARGE PLANNING*-* PATIENT HAS BEEN REFERRED TO: [facility] P: [phone]
--- NOTE | 2020-06-13 10:21 | NUR ---
*-*DISCHARGE PLANNING*-* PATIENT HAS BEEN REFERRED TO: [facility] P: [phone] S/W CANDY, WILL CALL BACK AFTER REVIEW.
--- NOTE | 2020-06-13 11:05 | NUR ---
*-*DISCHARGE PLAN*-* PATIENT HAS BEEN ACCEPTED WITH: [facility] P: [phone] S/W CANDY, WILL SERVICE THIS PATIENT UPON DISCHARGE.
--- NOTE | 2020-06-13 11:31 | Nephrology Progress Note ---
Assessment/Plan Problem List: (1) MITZI (acute kidney injury) (2) Diabetes mellitus type II, uncontrolled (3) Hypertension (4) Pneumonia due to COVID-19 virus Assessment Renal failure, most likely acute on chronic Abdominal pain, etiology to be determined Pneumonia due to COVID-19 19 virus Hypertension Hyperglycemia Plan June 13: Renal parameters are stable. Continue to monitor electrolytes. Medication list reviewed. Anemia work-up initiated. June 12: Today's labs pending. Normal saline 50 cc an hour started. Continue per managed services consultant. Further comments after checking the labs. Patient started on dexamethasone Lovenox and antibiotics We will monitor renal parameters and blood sugar IV Protonix given Anemia work-up Urine analysis and urine studies Avoid nephrotoxic's Per orders Subjective ROS Limited/Unobtainable: No Constitutional: Reports: malaise, weakness Objective Objective Last 24 Hour Vital Signs Date Time Temp Pulse Resp B/P (MAP) Pulse Ox O2 Delivery O2 Flow Rate FiO2 06/13/20 09:00 Room Air 06/13/20 08:00 97.9 54 18 148/60 (89) 95 06/13/20 04:00 98.3 18 135/70 (91) 97 06/13/20 00:00 97.9 18 117/49 (71) 98 06/12/20 21:00 Room Air 06/12/20 19:19 98.2 19 132/69 (90) 96 06/12/20 19:17 () 06/12/20 16:00 98.2 19 132/69 (90) 96 06/12/20 16:00 98.2 19 132/69 (90) 66 06/12/20 12:00 97.1 71 19 164/70 (101) 91 Intake and Output 0 06/12/20 06/13/20 19:00 07:00 Intake Total 240 ml Balance 240 ml Intake Oral 240 ml Current Medications Medications (Trade) Dose Ordered Sig/Hever Route PRN Reason Start Time Stop Time Status Last Admin Dose Admin Acetaminophen (Tylenol) 650 mg Q6H PRN ORAL Temp >100.5 06/11/20 10:45 07/11/20 10:44 Acetaminophen (Tylenol) 650 mg Q6H PRN ORAL Mild Pain (Pain Scale 1-3) 06/11/20 11:15 07/11/20 11:14 Acetaminophen/ Hydrocodone Bitart ([place] 5/325) 1 tab Q6H PRN ORAL Moderate Pain (Pain Scale 4-6) 06/11/20 10:45 06/18/20 10:44 Aspirin (Ecotrin) 81 mg DAILY ORAL 06/12/20 09:00 07/27/20 08:59 06/13/20 09:13 Bethanechol Chloride (Urecholine) 10 mg THREE TIMES A DAY ORAL 06/11/20 18:00 07/11/20 17:59 06/13/20 09:13 Brimonidine Tartrate (Alphagan) 1 drop Q8HR RIGHT EYE 06/11/20 22:00 09/09/20 21:59 06/13/20 06:44 Ceftriaxone Sodium 1 gm/ Dextrose 55 ml @ 110 mls/hr DAILY IVPB 06/12/20 09:00 06/19/20 08:59 06/13/20 09:12 Dexamethasone Sodium Phosphate (Decadron 4mg/ml vial) 6 mg DAILY IVP 06/12/20 17:30 06/21/20 09:01 06/13/20 09:15 Dextrose (Dextrose 50%) 25 ml Q30M PRN IV Hypoglycemia 06/11/20 10:45 09/09/20 10:44 Dextrose (Dextrose 50%) 50 ml Q30M PRN IV Hypoglycemia 06/11/20 10:45 09/09/20 10:44 Docusate Sodium (Colace) 100 mg THREE TIMES A DAY ORAL 06/11/20 13:00 07/11/20 12:59 06/13/20 09:13 Enoxaparin Sodium (Lovenox) 40 mg DAILY SUBQ 06/12/20 09:00 09/10/20 08:59 06/13/20 09:18 Guaifenesin (Robitussin) 100 mg Q6H PRN ORAL For Cough 06/12/20 17:30 09/10/20 17:29 06/13/20 04:10 Insulin Aspart (NovoLOG Mix 70/ 30) 50 units EVERY 12 HOURS SUBQ 06/11/20 21:00 09/09/20 20:59 06/13/20 09:17 Insulin Aspart (NovoLOG) BEFORE MEALS AND HS SUBQ 06/11/20 11:30 09/09/20 11:29 06/13/20 06:53 Morphine Sulfate (Morphine Sulfate) 4 mg Q4H PRN IVP Severe Pain (Pain Scale 7-10) 06/11/20 10:45 06/18/20 10:44 06/13/20 07:04 Ondansetron HCl (Zofran) 4 mg Q4H PRN IVP Nausea & Vomiting 06/11/20 10:45 07/11/20 10:44 Pantoprazole (Protonix) 40 mg EVERY 12 HOURS IVP 06/11/20 21:00 07/11/20 20:59 06/13/20 09:11 Sodium Chloride 1,000 ml @ 50 mls/hr Q20H IV 06/12/20 10:15 07/12/20 10:14 06/12/20 10:30 Timolol Maleate (timoloL maleate 0.5% Op Soln) 1 drop TWICE A DAY BOTH EYES 06/11/20 18:00 07/11/20 17:59 06/13/20 09:12 Laboratory Tests 06/12/20 16:27: POC Whole Blood Glucose 75 06/12/20 20:48: POC Whole Blood Glucose 72L 06/13/20 06:34: White Blood Count 4.0L, Red Blood Count 3.63L, Hemoglobin 10.1L, Hematocrit 31.9L, Mean Corpuscular Volume 88, Mean Corpuscular Hemoglobin 27.7, Mean Corpuscular Hemoglobin Concent 31.5L, Red Cell Distribution Width 13.1, Platelet Count 282, Mean Platelet Volume 6.9, Neutrophils (%) (Auto) 71.3, Lymphocytes (%) (Auto) 20.7, Monocytes (%) (Auto) 7.2, Eosinophils (%) (Auto) 0.1, Basophils (%) (Auto) 0.7, Sodium Level 139, Potassium Level 4.2, Chloride Level 107, Carbon Dioxide Level 26, Anion Gap 6, Blood Urea Nitrogen 16, Creatinine 1.0, Estimat Glomerular Filtration Rate > 60, Glucose Level 182H, Calcium Level 8.8 06/13/20 06:49: POC Whole Blood Glucose 173H 06/13/20 08:35: POC Whole Blood Glucose 232H 06/13/20 11:27: POC Whole Blood Glucose 254H Height (Feet): 5 Height (Inches): 8.00 Weight (Pounds): 200 General Appearance: no apparent distress Cardiovascular: normal rate Respiratory/Chest: decreased breath sounds Abdomen: distended Melchor Reeves MD Jun 13, 2020 11:31
--- NOTE | 2020-06-13 11:54 | Diagnostic Imaging Report ---
Indication: Pain Technique: Grayscale and duplex images of the bilateral lower extremity veins Comparison: none Findings: Bilaterally, grayscale and duplex images demonstrate no evidence of intraluminal thrombus. Normal phasic Doppler waveforms, demonstrating normal augmentation response and no evidence of valvular insufficiency. Greater saphenous vein(s) and tibial veins are patent. Normal compressibility. Impression: Negative for evidence of lower extremity deep venous thrombosis bilaterally
--- NOTE | 2020-06-13 14:59 | NUR ---
P.T Note: P.T evaluation completed. Pt is currently functioning independently and safely . Pt at baseline function therefore does not require skilled P.T services. D/C P.T services. Thank you for this referral.
--- NOTE | 2020-06-13 15:42 | Internal Med Progress Note ---
Subjective Date of Service: Jun 13, 2020 Physician Name Isael Hutton Attending Physician Emre Trejo MD Current Medications Medications (Trade) Dose Ordered Sig/Hever Route PRN Reason Start Time Stop Time Status Last Admin Dose Admin Acetaminophen (Tylenol) 650 mg Q6H PRN ORAL Temp >100.5 06/11/20 10:45 07/11/20 10:44 Acetaminophen (Tylenol) 650 mg Q6H PRN ORAL Mild Pain (Pain Scale 1-3) 06/11/20 11:15 07/11/20 11:14 Acetaminophen/ Hydrocodone Bitart ([place] 5/325) 1 tab Q6H PRN ORAL Moderate Pain (Pain Scale 4-6) 06/11/20 10:45 06/18/20 10:44 Aspirin (Ecotrin) 81 mg DAILY ORAL 06/12/20 09:00 07/27/20 08:59 06/13/20 09:13 Bethanechol Chloride (Urecholine) 10 mg THREE TIMES A DAY ORAL 06/11/20 18:00 07/11/20 17:59 06/13/20 12:01 Brimonidine Tartrate (Alphagan) 1 drop Q8HR RIGHT EYE 06/11/20 22:00 09/09/20 21:59 06/13/20 13:38 Ceftriaxone Sodium 1 gm/ Dextrose 55 ml @ 110 mls/hr DAILY IVPB 06/12/20 09:00 06/19/20 08:59 06/13/20 09:12 Dexamethasone Sodium Phosphate (Decadron 4mg/ml vial) 6 mg DAILY IVP 06/12/20 17:30 06/21/20 09:01 06/13/20 09:15 Dextrose (Dextrose 50%) 25 ml Q30M PRN IV Hypoglycemia 06/11/20 10:45 09/09/20 10:44 Dextrose (Dextrose 50%) 50 ml Q30M PRN IV Hypoglycemia 06/11/20 10:45 09/09/20 10:44 Docusate Sodium (Colace) 100 mg THREE TIMES A DAY ORAL 06/11/20 13:00 07/11/20 12:59 06/13/20 12:01 Enoxaparin Sodium (Lovenox) 40 mg DAILY SUBQ 06/12/20 09:00 09/10/20 08:59 06/13/20 09:18 Guaifenesin (Robitussin) 100 mg Q6H PRN ORAL For Cough 06/12/20 17:30 09/10/20 17:29 06/13/20 04:10 Insulin Aspart (NovoLOG Mix 70/ 30) 50 units EVERY 12 HOURS SUBQ 06/11/20 21:00 09/09/20 20:59 06/13/20 09:17 Insulin Aspart (NovoLOG) BEFORE MEALS AND HS SUBQ 06/11/20 11:30 09/09/20 11:29 06/13/20 11:51 Morphine Sulfate (Morphine Sulfate) 4 mg Q4H PRN IVP Severe Pain (Pain Scale 7-10) 06/11/20 10:45 06/18/20 10:44 06/13/20 07:04 Ondansetron HCl (Zofran) 4 mg Q4H PRN IVP Nausea & Vomiting 06/11/20 10:45 07/11/20 10:44 Pantoprazole (Protonix) 40 mg EVERY 12 HOURS IVP 06/11/20 21:00 07/11/20 20:59 06/13/20 09:11 Sodium Chloride 1,000 ml @ 50 mls/hr Q20H IV 06/12/20 10:15 07/12/20 10:14 06/12/20 10:30 Timolol Maleate (timoloL maleate 0.5% Op Soln) 1 drop TWICE A DAY BOTH EYES 06/11/20 18:00 07/11/20 17:59 06/13/20 09:12 Allergies: Coded Allergies: CODEINE (Verified Allergy, Mild, Itching, 08/26/13) SULFA (SULFONAMIDE ANTIBIOTICS) (Verified Adverse Reaction, Mild, 08/26/13) VOMIT ROS Limited/Unobtainable: No Constitutional: Reports: no symptoms HEENT: Reports: no symptoms Cardiovascular: Reports: no symptoms Respiratory: Reports: no symptoms Gastrointestinal/Abdominal: Reports: no symptoms Genitourinary: Reports: no symptoms Neurologic/Psychiatric: Reports: no symptoms Subjective 79 YO F admitted with abdominal pain. Now COVID 19 pneumonia. Cover for Int Quang-Dr Trejo. Objective Last Vital Signs Date Time Temp Pulse Resp B/P (MAP) Pulse Ox O2 Delivery O2 Flow Rate FiO2 06/13/20 13:00 120/56 (77) 06/13/20 12:00 97.0 57 18 94 06/13/20 09:00 Room Air Laboratory Tests Test 06/12/20 16:27 06/12/20 20:48 06/13/20 06:34 06/13/20 06:49 POC Whole Blood Glucose 75 MG/DL (74-106) 72 MG/DL (74-106) L 173 MG/DL (74-106) H White Blood Count 4.0 K/UL (4.8-10.8) L Red Blood Count 3.63 M/UL (4.20-5.40) L Hemoglobin 10.1 G/DL (12.0-16.0) L Hematocrit 31.9 % (37.0-47.0) L Mean Corpuscular Volume 88 FL (80-99) Mean Corpuscular Hemoglobin 27.7 PG (27.0-31.0) Mean Corpuscular Hemoglobin Concent 31.5 G/DL (32.0-36.0) L Red Cell Distribution Width 13.1 % (11.6-14.8) Platelet Count 282 K/UL (150-450) Mean Platelet Volume 6.9 FL (6.5-10.1) Neutrophils (%) (Auto) 71.3 % (45.0-75.0) Lymphocytes (%) (Auto) 20.7 % (20.0-45.0) Monocytes (%) (Auto) 7.2 % (1.0-10.0) Eosinophils (%) (Auto) 0.1 % (0.0-3.0) Basophils (%) (Auto) 0.7 % (0.0-2.0) Sodium Level 139 MMOL/L (136-145) Potassium Level 4.2 MMOL/L (3.5-5.1) Chloride Level 107 MMOL/L (98-107) Carbon Dioxide Level 26 MMOL/L (21-32) Anion Gap 6 mmol/L (5-15) Blood Urea Nitrogen 16 mg/dL (7-18) Creatinine 1.0 MG/DL (0.55-1.30) Estimat Glomerular Filtration Rate > 60 mL/min (>60) Glucose Level 182 MG/DL (74-106) H Calcium Level 8.8 MG/DL (8.5-10.1) Test 06/13/20 08:35 06/13/20 11:27 POC Whole Blood Glucose 232 MG/DL (74-106) H 254 MG/DL (74-106) H Microbiology Date/Time Source Procedure Growth Status 06/11/20 04:10 Nasopharynx SARS-CoV-2 RdRp Gene Assay - Final Complete Intake and Output 06/12/20 06/13/20 19:00 07:00 Intake Total 240 ml Balance 240 ml Intake Oral 240 ml Objective PHYSICAL EXAMINATION: GENERAL: The patient is well-developed and well-nourished female, in moderate abdominal pain distress. HEENT: Eyes, pupils are equal and responsive to light and accommodation. Extraocular movements are intact. NECK: Supple without lymphadenopathy. CHEST: Lungs are clear to auscultation bilaterally without wheezes or rales. CARDIOVASCULAR: Regular rate. S1 and S2 are normal without murmurs, rubs, or gallops. ABDOMEN: Soft, nontender, nondistended. Positive bowel sounds. No evidence of hepatosplenomegaly. Currently, no rebound or guarding noted. EXTREMITIES: Negative for clubbing, cyanosis, or edema. RECTAL/GENITAL: Not performed. NEUROLOGIC: Cranial nerves II through XII are grossly intact without focal deficits. Motor strength is 5/5 bilaterally. Deep tendon reflexes are 2+ plantar. Assessment/Plan Assessment/Plan ASSESSMENT: This is a 79-year-old female. 1. COVID-19 positive. 2. Bilateral pneumonia. 3. Abdominal pain. 4. Diabetes type 2. 5. Hypertension. 6. Renal failure. 7. Glaucoma. 8. Urinary frequency. TREATMENT: 1. COVID-19/bilateral pneumonia. An Infectious Disease consultation has been obtained with Dr. Ahuja . A Pulmonary consultation has been obtained with Dr. Ulloa. Follow recommendations of Pulmonary and Infectious Diseases. ABX=ceftriaxone. continue Decadron day #2 2. Abdominal pain, this may be secondary to COVID-19. The patient is currently requesting morphine for abdominal pain. A urine culture is pending. 3. Diabetes type 2. Continue 70/30 insulin as above. A NovoLog sliding scale has been instituted. 4. Hypertension. The patient is currently receiving p.r.n. hydralazine. 5. Renal failure. Nephrology consultation has been obtained with Dr. Reeves. 6. Glaucoma. Continue eye drops as above. Isael Hutton MD Jun 13, 2020 15:42
--- NOTE | 2020-06-13 16:33 | Consultation ---
History of Present Illness General Date patient seen: Jun 13, 2020 Time patient seen: 16:30 Chief Complaint: Abdominal Pain Referring physician: Dr Trejo Reason for Consultation: COVID+ Present Illness HPI 79 years old female with past medical history of hypertension, diabetes mellitus, obesity, degenerative disc disease, congestive heart failure, presented from home with abdominal pain for 1 week. Pain described as diffused . She reported decreased appetite, but no nausea or vomiting. She reported chills but no fever. She also reported urinary frequency and urgency , but no hematuria. No cough or congestion. No shortness of breath. She was unable to eat and only was drinking water. Patient reported not taking blood pressure medication in the morning prior to presentation to ED . Upon evaluation pulse oximetry was stable on room air . Patient was afebrile Blood pressure was elevated 178/73. Rapid SARS-CoV-2 by PCR was positive. Chest x-ray revealed multifocal lung parenchymal opacity. No pneumothorax. CT scan of the abdomen and pelvis demonstrated prominent bilateral groundglass opacity of the visualized thorax. Prominent soft tissue thickening at the rectum near the anal ; Nonspecific indeterminate right posterior perihepatic nodule measuring 0.6 cm. Follow-up CT was recommended to 6 months to evaluate stability of these findings. Laboratory work-up revealed leukopenia WBC 4.2, hemoglobin 11.4 ,hematocrit 36.6. Stable electrolytes. BUN 28, creatinine 1.4. Glucose 252. CRP 2.6. Stable LFT. Lipase 357. Albumin 2.7. Urinalysis revealed pyuria , hematuria ,+3 leukocyte esterase ,+3 protein. In emergency department patient received analgesic, antiemetic, antihypertensive ,started on empiric antibiotic,received IV hydration as well as Lovenox and admitted to isolation room for further management. Pulmonary consult was requested to assist in management of this patient. Allergies: Coded Allergies: CODEINE (Verified Allergy, Mild, Itching, 08/26/13) SULFA (SULFONAMIDE ANTIBIOTICS) (Verified Adverse Reaction, Mild, 08/26/13) VOMIT Medication History Scheduled Amlodipine Besylate (Norvasc), 10 MG ORAL DAILY, (Reported) Ascorbic Acid* (Vitamin C*), 500 MG ORAL DAILY, (Reported) Aspirin* (Aspir 81*), 81 MG ORAL DAILY, (Reported) Cholecalciferol (Vitamin D3) (Replesta), 50,000 UNIT PO WEEKLY, (Reported) Docusate Sodium (Docusate Sodium), 100 MG ORAL BID, (Reported) Docusate Sodium* (Colace*), 100 MG ORAL TWICE A DAY Ferrous Sulfate (Ferosul), 325 MG PO BID, (Reported) Hum Insulin Nph/Reg Insulin Hm (Humulin 70-30 Vial), 50 SUBQ BIDAC, (Reported) Hydrochlorothiazide* (Hydrochlorothiazide*), 25 MG ORAL DAILY, (Reported) Insulin Regular, Human* (Novolin R*), 0 SUBQ .SLIDING SCALE, (Reported) Lansoprazole* (Prevacid*), 30 MG ORAL BID, (Reported) Lidocaine Patch* (Lidoderm Patch*), 2 PATCH TOPIC DAILY, (Reported) Polyethylene Glycol 3350* (Miralax*), 17 GM ORAL DAILY Pregabalin* (Lyrica*), 75 MG ORAL BID, (Reported) Simvastatin (Zocor), 20 MG ORAL BEDTIME, (Reported) Sitagliptin Phos/Metformin Hcl (Janumet 50-500 Mg Tablet), Unknown Dose ORAL BID, (Reported) Scheduled PRN Carisoprodol (Soma), 250 MG PO Q8HR PRN for Muscle Spasm, (Reported) Clonidine Hcl* (Catapres*), 0.1 MG ORAL DAILY PRN for ELEVATED BLOOD PRESSURE, (Reported) Hydrocodone Bit/Acetaminophen 5-325* ([place] 5-325*), 1 TAB ORAL Q8HR PRN for For Pain, (Reported) Patient History Healthcare decision maker Resuscitation status Full code Advanced Directive on File Review of Systems Constitutional: Reports: chills Eye: Reports: no symptoms ENT: Reports: no symptoms Respiratory: Reports: see HPI Cardiovascular: Reports: no symptoms Gastrointestinal: Reports: see HPI Genitourinary: Reports: see HPI Musculoskeletal: Reports: other - DDD Skin: Reports: no symptoms Psychiatric: Reports: no symptoms Neurological: Reports: no symptoms Endocrine: Reports: other - DM Hematologic/Lymphatic: Reports: anemia Physical Exam Last 24 Hour Vital Signs Date Time Temp Pulse Resp B/P (MAP) Pulse Ox O2 Delivery O2 Flow Rate FiO2 06/13/20 16:00 97.7 51 18 158/67 (97) 96 06/13/20 13:00 120/56 (77) 06/13/20 12:00 97.0 57 18 160/73 (102) 94 06/13/20 09:00 Room Air 06/13/20 08:00 97.9 54 18 148/60 (89) 95 06/13/20 04:00 98.3 18 135/70 (91) 97 06/13/20 00:00 97.9 18 117/49 (71) 98 06/12/20 21:00 Room Air 06/12/20 19:19 98.2 19 132/69 (90) 96 06/12/20 19:17 () Intake and Output 06/12/20 06/13/20 19:00 07:00 Intake Total 240 ml Balance 240 ml Intake Oral 240 ml Laboratory Tests Test 06/12/20 20:48 06/13/20 06:34 06/13/20 06:49 06/13/20 08:35 POC Whole Blood Glucose 72 MG/DL (74-106) L 173 MG/DL (74-106) H 232 MG/DL (74-106) H White Blood Count 4.0 K/UL (4.8-10.8) L Red Blood Count 3.63 M/UL (4.20-5.40) L Hemoglobin 10.1 G/DL (12.0-16.0) L Hematocrit 31.9 % (37.0-47.0) L Mean Corpuscular Volume 88 FL (80-99) Mean Corpuscular Hemoglobin 27.7 PG (27.0-31.0) Mean Corpuscular Hemoglobin Concent 31.5 G/DL (32.0-36.0) L Red Cell Distribution Width 13.1 % (11.6-14.8) Platelet Count 282 K/UL (150-450) Mean Platelet Volume 6.9 FL (6.5-10.1) Neutrophils (%) (Auto) 71.3 % (45.0-75.0) Lymphocytes (%) (Auto) 20.7 % (20.0-45.0) Monocytes (%) (Auto) 7.2 % (1.0-10.0) Eosinophils (%) (Auto) 0.1 % (0.0-3.0) Basophils (%) (Auto) 0.7 % (0.0-2.0) Sodium Level 139 MMOL/L (136-145) Potassium Level 4.2 MMOL/L (3.5-5.1) Chloride Level 107 MMOL/L (98-107) Carbon Dioxide Level 26 MMOL/L (21-32) Anion Gap 6 mmol/L (5-15) Blood Urea Nitrogen 16 mg/dL (7-18) Creatinine 1.0 MG/DL (0.55-1.30) Estimat Glomerular Filtration Rate > 60 mL/min (>60) Glucose Level 182 MG/DL (74-106) H Calcium Level 8.8 MG/DL (8.5-10.1) Test 06/13/20 11:27 POC Whole Blood Glucose 254 MG/DL (74-106) H Height (Feet): 5 Height (Inches): 8.00 Weight (Pounds): 200 Medications Current Medications Medications (Trade) Dose Ordered Sig/Hever Route PRN Reason Start Time Stop Time Status Last Admin Dose Admin Acetaminophen (Tylenol) 650 mg Q6H PRN ORAL Temp >100.5 06/11/20 10:45 07/11/20 10:44 Acetaminophen (Tylenol) 650 mg Q6H PRN ORAL Mild Pain (Pain Scale 1-3) 06/11/20 11:15 07/11/20 11:14 Acetaminophen/ Hydrocodone Bitart ([place] 5/325) 1 tab Q6H PRN ORAL Moderate Pain (Pain Scale 4-6) 06/11/20 10:45 06/18/20 10:44 Aspirin (Ecotrin) 81 mg DAILY ORAL 06/12/20 09:00 07/27/20 08:59 06/13/20 09:13 Bethanechol Chloride (Urecholine) 10 mg THREE TIMES A DAY ORAL 06/11/20 18:00 07/11/20 17:59 06/13/20 12:01 Brimonidine Tartrate (Alphagan) 1 drop Q8HR RIGHT EYE 06/11/20 22:00 09/09/20 21:59 06/13/20 13:38 Ceftriaxone Sodium 1 gm/ Dextrose 55 ml @ 110 mls/hr DAILY IVPB 06/12/20 09:00 06/19/20 08:59 06/13/20 09:12 Dexamethasone Sodium Phosphate (Decadron 4mg/ml vial) 6 mg DAILY IVP 06/12/20 17:30 06/21/20 09:01 06/13/20 09:15 Dextrose (Dextrose 50%) 25 ml Q30M PRN IV Hypoglycemia 06/11/20 10:45 09/09/20 10:44 Dextrose (Dextrose 50%) 50 ml Q30M PRN IV Hypoglycemia 06/11/20 10:45 09/09/20 10:44 Docusate Sodium (Colace) 100 mg THREE TIMES A DAY ORAL 06/11/20 13:00 07/11/20 12:59 06/13/20 12:01 Enoxaparin Sodium (Lovenox) 40 mg DAILY SUBQ 06/12/20 09:00 09/10/20 08:59 06/13/20 09:18 Guaifenesin (Robitussin) 100 mg Q6H PRN ORAL For Cough 06/12/20 17:30 09/10/20 17:29 06/13/20 04:10 Insulin Aspart (NovoLOG Mix 70/ 30) 50 units EVERY 12 HOURS SUBQ 06/11/20 21:00 09/09/20 20:59 06/13/20 09:17 Insulin Aspart (NovoLOG) BEFORE MEALS AND HS SUBQ 06/11/20 11:30 09/09/20 11:29 06/13/20 11:51 Morphine Sulfate (Morphine Sulfate) 4 mg Q4H PRN IVP Severe Pain (Pain Scale 7-10) 06/11/20 10:45 06/18/20 10:44 06/13/20 07:04 Ondansetron HCl (Zofran) 4 mg Q4H PRN IVP Nausea & Vomiting 06/11/20 10:45 07/11/20 10:44 Pantoprazole (Protonix) 40 mg EVERY 12 HOURS IVP 06/11/20 21:00 07/11/20 20:59 06/13/20 09:11 Sodium Chloride 1,000 ml @ 50 mls/hr Q20H IV 06/12/20 10:15 07/12/20 10:14 06/12/20 10:30 Timolol Maleate (timoloL maleate 0.5% Op Soln) 1 drop TWICE A DAY BOTH EYES 06/11/20 18:00 07/11/20 17:59 06/13/20 09:12 Assessment/Plan Assessment/Plan: ASSESSMENT COVID 19 PNA probably UTI HTN urgency initially - resolved MITZI, probably due to dehydration /POA - already resolved DM PLAN OF CARE Date of sx onset: 1 week prior to presentation to ED Positive test: rapid MURALI COV2 06/11 + O2 RA HFA Dex Day# 2 will probably to dc soon if remain stable on RA REM: not indicated DVT PPX: Lovenox D dimer trend CRP 2.5- abx per ID recs fup cx a/tussive prn fup imaging monitor volumes and renal function, creat down to normal fup with consultants recs FC gentle hydration BP and BS manageemnt Tami Ortega NP Jun 13, 2020 16:33
[2020-06-13] MEDS ORDERED: Albuterol 90mcg Inhaler 8gm INH PRN (17:45)
--- NOTE | 2020-06-13 17:52 | Pulmonology Progress Note ---
Subjective ROS Limited/Unobtainable: No Allergies: Coded Allergies: CODEINE (Verified Allergy, Mild, Itching, 08/26/13) SULFA (SULFONAMIDE ANTIBIOTICS) (Verified Adverse Reaction, Mild, 08/26/13) VOMIT Subjective remains on RA afebrile SUSANNA better + chills, no fevers creat down to normal Objective Last 24 Hour Vital Signs Date Time Temp Pulse Resp B/P (MAP) Pulse Ox O2 Delivery O2 Flow Rate FiO2 06/13/20 16:00 97.7 51 18 158/67 (97) 96 06/13/20 13:00 120/56 (77) 06/13/20 12:00 97.0 57 18 160/73 (102) 94 06/13/20 09:00 Room Air 06/13/20 08:00 97.9 54 18 148/60 (89) 95 06/13/20 04:00 98.3 18 135/70 (91) 97 06/13/20 00:00 97.9 18 117/49 (71) 98 06/12/20 21:00 Room Air 06/12/20 19:19 98.2 19 132/69 (90) 96 06/12/20 19:17 () Intake and Output 06/12/20 06/13/20 19:00 07:00 Intake Total 240 ml Balance 240 ml Intake Oral 240 ml General Appearance: no acute distress HEENT: normocephalic, atraumatic, anicteric, mucous membranes moist Respiratory: lungs clear, no respiratory distress, no accessory muscle use Cardiovascular: normal rate Abdomen: soft, non tender, non distended Extremities: no edema, pedal pulses normal Neurologic: no motor/sensory deficits, alert, responsive Musculoskeletal: normal muscle bulk Microbiology Date/Time Source Procedure Growth Status 06/11/20 04:10 Nasopharynx SARS-CoV-2 RdRp Gene Assay - Final Complete Laboratory Tests 06/12/20 20:48: POC Whole Blood Glucose 72L 06/13/20 06:34: White Blood Count 4.0L, Red Blood Count 3.63L, Hemoglobin 10.1L, Hematocrit 31.9L, Mean Corpuscular Volume 88, Mean Corpuscular Hemoglobin 27.7, Mean Corpuscular Hemoglobin Concent 31.5L, Red Cell Distribution Width 13.1, Platelet Count 282, Mean Platelet Volume 6.9, Neutrophils (%) (Auto) 71.3, Lymphocytes (%) (Auto) 20.7, Monocytes (%) (Auto) 7.2, Eosinophils (%) (Auto) 0.1, Basophils (%) (Auto) 0.7, Sodium Level 139, Potassium Level 4.2, Chloride Level 107, Carbon Dioxide Level 26, Anion Gap 6, Blood Urea Nitrogen 16, Creatinine 1.0, Estimat Glomerular Filtration Rate > 60, Glucose Level 182H, Calcium Level 8.8 06/13/20 06:49: POC Whole Blood Glucose 173H 06/13/20 08:35: POC Whole Blood Glucose 232H 06/13/20 11:27: POC Whole Blood Glucose 254H 06/13/20 16:33: POC Whole Blood Glucose 149H Current Medications Medications (Trade) Dose Ordered Sig/Hever Route PRN Reason Start Time Stop Time Status Last Admin Dose Admin Acetaminophen (Tylenol) 650 mg Q6H PRN ORAL Temp >100.5 06/11/20 10:45 07/11/20 10:44 Acetaminophen (Tylenol) 650 mg Q6H PRN ORAL Mild Pain (Pain Scale 1-3) 06/11/20 11:15 07/11/20 11:14 Acetaminophen/ Hydrocodone Bitart ([place] 5/325) 1 tab Q6H PRN ORAL Moderate Pain (Pain Scale 4-6) 06/11/20 10:45 06/18/20 10:44 Aspirin (Ecotrin) 81 mg DAILY ORAL 06/12/20 09:00 07/27/20 08:59 06/13/20 09:13 Bethanechol Chloride (Urecholine) 10 mg THREE TIMES A DAY ORAL 06/11/20 18:00 07/11/20 17:59 06/13/20 17:17 Brimonidine Tartrate (Alphagan) 1 drop Q8HR RIGHT EYE 06/11/20 22:00 09/09/20 21:59 06/13/20 13:38 Ceftriaxone Sodium 1 gm/ Dextrose 55 ml @ 110 mls/hr DAILY IVPB 06/12/20 09:00 06/19/20 08:59 06/13/20 09:12 Dexamethasone Sodium Phosphate (Decadron 4mg/ml vial) 6 mg DAILY IVP 06/12/20 17:30 06/21/20 09:01 06/13/20 09:15 Dextrose (Dextrose 50%) 25 ml Q30M PRN IV Hypoglycemia 06/11/20 10:45 09/09/20 10:44 Dextrose (Dextrose 50%) 50 ml Q30M PRN IV Hypoglycemia 06/11/20 10:45 09/09/20 10:44 Docusate Sodium (Colace) 100 mg THREE TIMES A DAY ORAL 06/11/20 13:00 07/11/20 12:59 06/13/20 17:17 Enoxaparin Sodium (Lovenox) 40 mg DAILY SUBQ 06/12/20 09:00 09/10/20 08:59 06/13/20 09:18 Guaifenesin (Robitussin) 100 mg Q6H PRN ORAL For Cough 06/12/20 17:30 09/10/20 17:29 06/13/20 04:10 Insulin Aspart (NovoLOG Mix 70/ 30) 50 units EVERY 12 HOURS SUBQ 06/11/20 21:00 09/09/20 20:59 06/13/20 09:17 Insulin Aspart (NovoLOG) BEFORE MEALS AND HS SUBQ 06/11/20 11:30 09/09/20 11:29 06/13/20 17:21 Morphine Sulfate (Morphine Sulfate) 4 mg Q4H PRN IVP Severe Pain (Pain Scale 7-10) 06/11/20 10:45 06/18/20 10:44 06/13/20 07:04 Ondansetron HCl (Zofran) 4 mg Q4H PRN IVP Nausea & Vomiting 06/11/20 10:45 07/11/20 10:44 Pantoprazole (Protonix) 40 mg EVERY 12 HOURS IVP 06/11/20 21:00 07/11/20 20:59 06/13/20 09:11 Sodium Chloride 1,000 ml @ 50 mls/hr Q20H IV 06/12/20 10:15 07/12/20 10:14 06/12/20 10:30 Timolol Maleate (timoloL maleate 0.5% Op Soln) 1 drop TWICE A DAY BOTH EYES 06/11/20 18:00 07/11/20 17:59 06/13/20 17:18 Assessment/Plan Assessment/Plan ASSESSMENT COVID 19 PNA probably UTI Elevated D dimer HTN urgency initially - resolved MITIZ, probably due to dehydration /POA - already resolved DM with hyperglycemia PLAN OF CARE Date of sx onset: 1 week prior to presentation to ED Positive test: rapid MURALI COV2 06/11 + O2 RA HFA Dex Day# 2 will probably dc soon if remain stable on RA REM: not indicated DVT PPX: Lovenox D dimer 7.44 trend CRP 2.5- Venous Duplex BLE NGT abx per ID recs fup cx a/tussive prn fup imaging monitor volumes and renal function, creat down to normal fup with consultants recs FC gentle hydration BP and BS management CT scan A/P noted, -repeat CT A/P in 6 months recommended surgery follows started on diet as tolerated case discussed and evaluated by supervising physician Tami Ortega NP Jun 13, 2020 17:52
--- NOTE | 2020-06-13 18:52 | NUR ---
NURSE HAND-OFF: Important Events on Shift:[Venous duplex done, negative ] Patient Status: [stable] Diet: [cardiac ] Pending Orders: [] Pending Results/Labs:[] Pending MD notification:[] Latest Vital Signs: Temperature 97.7 , Pulse 51 , B/P 158 /67 , Respiratory Rate 18 , O2 SAT 96 , Room Air, O2 Flow Rate . Vital Sign Comment: [] Latest Rangel Fall Score: 85 Fall Risk: High Risk Safety Measures: Call light Within Reach, Bed Alarm Zone 2, Side Rails Side Rails x2, Bed position Low and Locked. Fall Precautions: Yellow Socks Yellow Gown Door Sign Patient Fall Education
--- NOTE | 2020-06-13 19:11 | NUR ---
NURSE NOTES: Report given to Malia GARNER.
--- NOTE | 2020-06-13 19:30 | NUR ---
NURSE NOTES: Received patient in no apparent distress. A&OX4. IV site patent and intact. Bed in lowest position. Call light within reach. Will continue to monitor.
[2020-06-14] VITALS (13 sets, daily range): BP systolic 147–161; BP diastolic 57–81
[2020-06-14] MEDS: Brimonidine 0.2% Opth Sol RIGHT EYE SCH ×3 (06:30→21:29)
[2020-06-14] MEDS: NovoLOG Insulin Flexpen SUBQ SCH ×4 (06:30→21:31)
--- NOTE | 2020-06-14 06:43 | NUR ---
NURSE NOTES: Blood sugar was 50. Juice given. Notified Dr. Trejo. No new order at this time.
[2020-06-14 07:27] LABS: HEMATOCRIT 33.9 % (37.0-47.0); HEMOGLOBIN 10.9 G/DL (12.0-16.0); LYMPHOCYTES % (AUTO) 33.8 % (20.0-45.0); MEAN CORPUSCULAR VOLUME 87 FL (80-99); MONOCYTES % (AUTO) 10.6 % (1.0-10.0); NEUTROPHILS % (AUTO) 54.6 % (45.0-75.0); PLATELET COUNT 348 K/UL (150-450); RED BLOOD COUNT 3.92 M/UL (4.20-5.40); RED CELL DISTRIBUTION WIDTH 13.1 % (11.6-14.8); WHITE BLOOD COUNT 6.5 K/UL (4.8-10.8)
--- NOTE | 2020-06-14 07:36 | NUR ---
NURSE HAND-OFF: Important Events on Shift: Blood sugar was 50, asymptomatic, juice was given, went up to 67, another juice given, went up to 150. Notified Dr. Trejo. No new order at this time. Patient Status: Stable Diet: Cardiac,CCHO(M). Pending Orders: Pending Results/Labs: Pending MD notification: Latest Vital Signs: Temperature 98.3 , Pulse 58 , B/P 150 /68 , Respiratory Rate 18 , O2 SAT 97 , Room Air, O2 Flow Rate . Vital Sign Comment: Latest Rangel Fall Score: 85 Fall Risk: High Risk Safety Measures: Call light Within Reach, Bed Alarm Zone 1, Side Rails Side Rails x2, Bed position Low and Locked. Fall Precautions: Yellow Socks Yellow Gown Door Sign Patient Fall Education Report given to Alma GARNER.
--- NOTE | 2020-06-14 07:44 | NUR ---
NURSE NOTES: Patient awake, alert x4; on room air, no sing of distress and shortness of breath; no sing of chest pain; IV LFA NS 50cc running; side rails up x2, breaks engaged, bed at lowest position, call light within reach;
[2020-06-14 08:14] LABS: ALANINE AMINOTRANSFERASE 24 U/L (12-78); ALBUMIN 2.4 G/DL (3.4-5.0); ALBUMIN/GLOBULIN RATIO 0.6 (1.0-2.7); ALKALINE PHOSPHATASE 60 U/L (46-116); ANION GAP 8 mmol/L (5-15); ASPARTATE AMINO TRANSFERASE 27 U/L (15-37); BILIRUBIN,TOTAL 0.4 MG/DL (0.2-1.0); BLOOD UREA NITROGEN 16 mg/dL (7-18); CALCIUM 8.7 MG/DL (8.5-10.1); CARBON DIOXIDE 27 MMOL/L (21-32); CHLORIDE 107 MMOL/L (98-107); CHOLESTEROL 125 MG/DL (< 200); FERRITIN 84 NG/ML (8-388); HDL CHOLESTEROL 44 MG/DL (40-60); POTASSIUM 3.7 MMOL/L (3.5-5.1); SODIUM 141 MMOL/L (136-145); TRIGLYCERIDES 73 MG/DL (30-150)
[2020-06-14 08:27] LABS: IRON 53 ug/dL (50-175); TOTAL IRON BINDING CAPACITY 193 ug/dL (250-450)
[2020-06-14 08:29] LABS: % IRON SATURATION 27 % (15-50)
[2020-06-14] MEDS: cefTRIAXone 1 GM in D5W 55 ML IVPB SCH (08:50)
[2020-06-14] MEDS: Bethanechol 10mg Tab ORAL SCH ×3 (08:50→17:22)
[2020-06-14] MEDS: Aspirin EC 81mg tab ORAL SCH (08:50)
[2020-06-14] MEDS: Pantoprazole Inj IVP SCH ×2 (08:50→21:28)
[2020-06-14] MEDS: Docusate 100mg cap ORAL SCH ×3 (08:50→17:22)
[2020-06-14] MEDS: Enoxaparin 40mg Inj SUBQ SCH (08:55)
[2020-06-14] MEDS: timoloL maleate 0.5% Op Soln 2.5ml BOTH EYES SCH ×2 (09:01→17:22)
--- NOTE | 2020-06-14 09:30 | Infectious Diseases Prog Note ---
Assessment/Plan 79yo F with: COVID+ Doing well on RA Normal WBC 06/11 COVID rapid positive CXR: Multifocal lung parenchymal opacities are better seen on the recent CT abdomen pelvis, new since prior CT from 03/16/2020. There is a hiatal hernia also better seen on the recent CT abdomen pelvis. R/o UTI Vaginal yeast infection, SP tx 06/11 UA+, UCx p (prelim is yeast, only 1 colony GNR) Cr 1.4 Abd pain x1 week, prompting pt to come to ED 06/11 CT A/P: Prominent bilateral groundglass opacities of the visualized thorax. Postsurgical clips are seen in the region of the second portion of the duodenum. High density localized to the first portion of the duodenum, image 39 series 3, is nonspecific and may represent focal blood products. Prominent soft tissue thickening is noted at the rectum near the anal verge. Stable soft tissue infiltrative changes are noted along the anterior superficial soft tissues. A nonspecific indeterminate right posterior perihepatic nodule measuring 0.6 cm is stable. HTN Plan: Cont empiric CTX #4/7 for UTI, on discharge can transition to cephalexin 500mg PO QID to complete rest of course (3 more days) On dex 6mg #3 per Pulm - recommend stopping soon as if remains satting 95-98% on RA As doing well on RA and UTI sx improving, ok to d/c home from ID standpoint on above PO abx. Ensure PCP f/u given COVID+ Needs COVID isolation through 06/21 Not candidate for remdesivir nor steroids given doing well on RA This hospital does not have access to convalescent plasma, and pt doing well on RA so not candidate for it anyways F/u UCx (prelim is yeast and 1 colony GNR per d/w lab today) 06/11 SP fluconazole 150mg x1 for vaginal yeast infection Monitor CBC/CMP Monitor resp status Monitor temp curve, hemodynamics D/w RN and lab at length Thank you for this consult. [facility] will continue to follow. Subjective Allergies: Coded Allergies: CODEINE (Verified Allergy, Mild, Itching, 08/26/13) SULFA (SULFONAMIDE ANTIBIOTICS) (Verified Adverse Reaction, Mild, 08/26/13) VOMIT AF NAD on RA satting 97% WBC 6 Feeling overall better, changed rooms to a sunnier, warmer room Less abd pain Less dysuria Objective Last 24 Hour Vital Signs Date Time Temp Pulse Resp B/P (MAP) Pulse Ox O2 Delivery O2 Flow Rate FiO2 06/14/20 08:00 98.1 61 19 161/66 (97) 97 06/14/20 04:00 98.3 58 18 150/68 (95) 97 06/14/20 00:00 97.9 56 18 157/67 (97) 97 06/13/20 21:00 Room Air 06/13/20 20:00 98.3 54 18 157/68 (97) 96 06/13/20 16:00 97.7 51 18 158/67 (97) 96 06/13/20 13:00 120/56 (77) 06/13/20 12:00 97.0 57 18 160/73 (102) 94 Height (Feet): 5 Height (Inches): 8.00 Weight (Pounds): 200 Gen: NAD HEENT: NCAT Pulm: BL chest rise on RA, non-labored Abd: Obese, soft, mildly TTP in the lower quadrants, no rebound or guarding Ext: No c/c/e Skin: No visible rashes Neuro: Awake, alert, itneractive Laboratory Tests Test 06/13/20 11:27 06/13/20 16:33 06/13/20 21:42 06/14/20 05:14 POC Whole Blood Glucose 254 MG/DL (74-106) H 149 MG/DL (74-106) H 122 MG/DL (74-106) H White Blood Count 6.5 K/UL (4.8-10.8) # Red Blood Count 3.92 M/UL (4.20-5.40) L Hemoglobin 10.9 G/DL (12.0-16.0) L Hematocrit 33.9 % (37.0-47.0) L Mean Corpuscular Volume 87 FL (80-99) Mean Corpuscular Hemoglobin 27.9 PG (27.0-31.0) Mean Corpuscular Hemoglobin Concent 32.2 G/DL (32.0-36.0) Red Cell Distribution Width 13.1 % (11.6-14.8) Platelet Count 348 K/UL (150-450) Mean Platelet Volume 6.1 FL (6.5-10.1) L Neutrophils (%) (Auto) 54.6 % (45.0-75.0) Lymphocytes (%) (Auto) 33.8 % (20.0-45.0) Monocytes (%) (Auto) 10.6 % (1.0-10.0) H Eosinophils (%) (Auto) 0.0 % (0.0-3.0) Basophils (%) (Auto) 1.0 % (0.0-2.0) D-Dimer 4.19 mg/L FEU (0.00-0.49) H Sodium Level 141 MMOL/L (136-145) Potassium Level 3.7 MMOL/L (3.5-5.1) Chloride Level 107 MMOL/L (98-107) Carbon Dioxide Level 27 MMOL/L (21-32) Anion Gap 8 mmol/L (5-15) Blood Urea Nitrogen 16 mg/dL (7-18) Creatinine 1.0 MG/DL (0.55-1.30) Estimat Glomerular Filtration Rate > 60 mL/min (>60) Glucose Level 42 MG/DL (74-106) #L Hemoglobin A1c 9.9 % (4.3-6.0) H Uric Acid 5.0 MG/DL (2.6-7.2) Calcium Level 8.7 MG/DL (8.5-10.1) Phosphorus Level 2.0 MG/DL (2.5-4.9) L Magnesium Level 1.8 MG/DL (1.8-2.4) Iron Level 53 ug/dL (50-175) Total Iron Binding Capacity 193 ug/dL (250-450) L Percent Iron Saturation 27 % (15-50) Unsaturated Iron Binding 140 ug/dL (112-346) Ferritin 84 NG/ML (8-388) Total Bilirubin 0.4 MG/DL (0.2-1.0) Aspartate Amino Transf (AST/SGOT) 27 U/L (15-37) Alanine Aminotransferase (ALT/SGPT) 24 U/L (12-78) Alkaline Phosphatase 60 U/L (46-116) C-Reactive Protein, Quantitative 0.6 mg/dL (0.00-0.90) Pro-B-Type Natriuretic Peptide 638 pg/mL (0-125) H Total Protein 6.7 G/DL (6.4-8.2) Albumin 2.4 G/DL (3.4-5.0) L Globulin 4.3 g/dL Albumin/Globulin Ratio 0.6 (1.0-2.7) L Triglycerides Level 73 MG/DL (30-150) Cholesterol Level 125 MG/DL (< 200) LDL Cholesterol 60 mg/dL (<100) HDL Cholesterol 44 MG/DL (40-60) Cholesterol/HDL Ratio 2.8 (3.3-4.4) L Vitamin B12 Level 1843 PG/ML (193-986) H Folate 5.7 NG/ML (8.6-58.9) L Test 06/14/20 06:32 06/14/20 06:57 06/14/20 07:32 POC Whole Blood Glucose 50 MG/DL (74-106) L 67 MG/DL (74-106) L 150 MG/DL (74-106) H Current Medications Medications (Trade) Dose Ordered Sig/Hever Route PRN Reason Start Time Stop Time Status Last Admin Dose Admin Acetaminophen (Tylenol) 650 mg Q6H PRN ORAL Temp >100.5 06/11/20 10:45 07/11/20 10:44 Acetaminophen (Tylenol) 650 mg Q6H PRN ORAL Mild Pain (Pain Scale 1-3) 06/11/20 11:15 07/11/20 11:14 Acetaminophen/ Hydrocodone Bitart ([place] 5/325) 1 tab Q6H PRN ORAL Moderate Pain (Pain Scale 4-6) 06/11/20 10:45 06/18/20 10:44 Albuterol Sulfate (Proventil MDI) 2 puff Q4H PRN INH Shortness of Breath 06/13/20 17:45 09/11/20 17:44 Aspirin (Ecotrin) 81 mg DAILY ORAL 06/12/20 09:00 07/27/20 08:59 06/14/20 08:50 Bethanechol Chloride (Urecholine) 10 mg THREE TIMES A DAY ORAL 06/11/20 18:00 07/11/20 17:59 06/14/20 08:50 Brimonidine Tartrate (Alphagan) 1 drop Q8HR RIGHT EYE 06/11/20 22:00 09/09/20 21:59 06/14/20 06:30 Ceftriaxone Sodium 1 gm/ Dextrose 55 ml @ 110 mls/hr DAILY IVPB 06/12/20 09:00 06/19/20 08:59 06/14/20 08:50 Dexamethasone Sodium Phosphate (Decadron 4mg/ml vial) 6 mg DAILY IVP 06/12/20 17:30 06/21/20 09:01 06/14/20 08:50 Dextrose (Dextrose 50%) 25 ml Q30M PRN IV Hypoglycemia 06/11/20 10:45 09/09/20 10:44 Dextrose (Dextrose 50%) 50 ml Q30M PRN IV Hypoglycemia 06/11/20 10:45 09/09/20 10:44 Docusate Sodium (Colace) 100 mg THREE TIMES A DAY ORAL 06/11/20 13:00 07/11/20 12:59 06/14/20 08:50 Enoxaparin Sodium (Lovenox) 40 mg DAILY SUBQ 06/12/20 09:00 09/10/20 08:59 06/14/20 08:55 Guaifenesin (Robitussin) 100 mg Q6H PRN ORAL For Cough 06/12/20 17:30 09/10/20 17:29 06/13/20 04:10 Insulin Aspart (NovoLOG Mix 70/ 30) 50 units EVERY 12 HOURS SUBQ 06/11/20 21:00 09/09/20 20:59 06/14/20 08:59 Insulin Aspart (NovoLOG) BEFORE MEALS AND HS SUBQ 06/11/20 11:30 09/09/20 11:29 06/13/20 17:21 Morphine Sulfate (Morphine Sulfate) 4 mg Q4H PRN IVP Severe Pain (Pain Scale 7-10) 06/11/20 10:45 06/18/20 10:44 06/13/20 07:04 Ondansetron HCl (Zofran) 4 mg Q4H PRN IVP Nausea & Vomiting 06/11/20 10:45 07/11/20 10:44 Pantoprazole (Protonix) 40 mg EVERY 12 HOURS IVP 06/11/20 21:00 07/11/20 20:59 06/14/20 08:50 Sodium Chloride 1,000 ml @ 50 mls/hr Q20H IV 06/12/20 10:15 07/12/20 10:14 06/14/20 03:10 Timolol Maleate (timoloL maleate 0.5% Op Soln) 1 drop TWICE A DAY BOTH EYES 06/11/20 18:00 07/11/20 17:59 06/14/20 09:01 Milagro Ahuja M.D. Jun 14, 2020 09:30
--- NOTE | 2020-06-14 10:00 | NUR ---
NURSE NOTES: Patient requested for room change. RN transferred patient to room 408-2 with all her belongings. Patient satisfied with new room.
--- NOTE | 2020-06-14 10:01 | Internal Med Progress Note ---
Subjective Date of Service: Jun 14, 2020 Physician Name Isael Hutton Attending Physician Emre Trejo MD Current Medications Medications (Trade) Dose Ordered Sig/Hever Route PRN Reason Start Time Stop Time Status Last Admin Dose Admin Acetaminophen (Tylenol) 650 mg Q6H PRN ORAL Temp >100.5 06/11/20 10:45 07/11/20 10:44 Acetaminophen (Tylenol) 650 mg Q6H PRN ORAL Mild Pain (Pain Scale 1-3) 06/11/20 11:15 07/11/20 11:14 Acetaminophen/ Hydrocodone Bitart ([place] 5/325) 1 tab Q6H PRN ORAL Moderate Pain (Pain Scale 4-6) 06/11/20 10:45 06/18/20 10:44 Albuterol Sulfate (Proventil MDI) 2 puff Q4H PRN INH Shortness of Breath 06/13/20 17:45 09/11/20 17:44 Aspirin (Ecotrin) 81 mg DAILY ORAL 06/12/20 09:00 07/27/20 08:59 06/14/20 08:50 Bethanechol Chloride (Urecholine) 10 mg THREE TIMES A DAY ORAL 06/11/20 18:00 07/11/20 17:59 06/14/20 08:50 Brimonidine Tartrate (Alphagan) 1 drop Q8HR RIGHT EYE 06/11/20 22:00 09/09/20 21:59 06/14/20 06:30 Ceftriaxone Sodium 1 gm/ Dextrose 55 ml @ 110 mls/hr DAILY IVPB 06/12/20 09:00 06/19/20 08:59 06/14/20 08:50 Dexamethasone Sodium Phosphate (Decadron 4mg/ml vial) 6 mg DAILY IVP 06/12/20 17:30 06/21/20 09:01 06/14/20 08:50 Dextrose (Dextrose 50%) 25 ml Q30M PRN IV Hypoglycemia 06/11/20 10:45 09/09/20 10:44 Dextrose (Dextrose 50%) 50 ml Q30M PRN IV Hypoglycemia 06/11/20 10:45 09/09/20 10:44 Docusate Sodium (Colace) 100 mg THREE TIMES A DAY ORAL 06/11/20 13:00 07/11/20 12:59 06/14/20 08:50 Enoxaparin Sodium (Lovenox) 40 mg DAILY SUBQ 06/12/20 09:00 09/10/20 08:59 06/14/20 08:55 Guaifenesin (Robitussin) 100 mg Q6H PRN ORAL For Cough 06/12/20 17:30 09/10/20 17:29 06/13/20 04:10 Insulin Aspart (NovoLOG Mix 70/ 30) 50 units EVERY 12 HOURS SUBQ 06/11/20 21:00 09/09/20 20:59 06/14/20 08:59 Insulin Aspart (NovoLOG) BEFORE MEALS AND HS SUBQ 06/11/20 11:30 09/09/20 11:29 06/13/20 17:21 Morphine Sulfate (Morphine Sulfate) 4 mg Q4H PRN IVP Severe Pain (Pain Scale 7-10) 06/11/20 10:45 06/18/20 10:44 06/13/20 07:04 Ondansetron HCl (Zofran) 4 mg Q4H PRN IVP Nausea & Vomiting 06/11/20 10:45 07/11/20 10:44 Pantoprazole (Protonix) 40 mg EVERY 12 HOURS IVP 06/11/20 21:00 07/11/20 20:59 06/14/20 08:50 Sodium Chloride 1,000 ml @ 50 mls/hr Q20H IV 06/12/20 10:15 07/12/20 10:14 06/14/20 03:10 Timolol Maleate (timoloL maleate 0.5% Op Soln) 1 drop TWICE A DAY BOTH EYES 06/11/20 18:00 07/11/20 17:59 06/14/20 09:01 Allergies: Coded Allergies: CODEINE (Verified Allergy, Mild, Itching, 08/26/13) SULFA (SULFONAMIDE ANTIBIOTICS) (Verified Adverse Reaction, Mild, 08/26/13) VOMIT ROS Limited/Unobtainable: No Constitutional: Reports: no symptoms HEENT: Reports: no symptoms Cardiovascular: Reports: no symptoms Respiratory: Reports: cough, shortness of breath Gastrointestinal/Abdominal: Reports: abdominal pain Genitourinary: Reports: no symptoms Neurologic/Psychiatric: Reports: no symptoms Subjective 79 YO F admitted with abdominal pain. Now COVID 19 pneumonia. Cover for Int Med-Dr Trejo. Objective Last Vital Signs Date Time Temp Pulse Resp B/P (MAP) Pulse Ox O2 Delivery O2 Flow Rate FiO2 06/14/20 08:00 98.1 61 19 161/66 (97) 97 06/13/20 21:00 Room Air Laboratory Tests Test 06/13/20 11:27 06/13/20 16:33 06/13/20 21:42 06/14/20 05:14 POC Whole Blood Glucose 254 MG/DL (74-106) H 149 MG/DL (74-106) H 122 MG/DL (74-106) H White Blood Count 6.5 K/UL (4.8-10.8) # Red Blood Count 3.92 M/UL (4.20-5.40) L Hemoglobin 10.9 G/DL (12.0-16.0) L Hematocrit 33.9 % (37.0-47.0) L Mean Corpuscular Volume 87 FL (80-99) Mean Corpuscular Hemoglobin 27.9 PG (27.0-31.0) Mean Corpuscular Hemoglobin Concent 32.2 G/DL (32.0-36.0) Red Cell Distribution Width 13.1 % (11.6-14.8) Platelet Count 348 K/UL (150-450) Mean Platelet Volume 6.1 FL (6.5-10.1) L Neutrophils (%) (Auto) 54.6 % (45.0-75.0) Lymphocytes (%) (Auto) 33.8 % (20.0-45.0) Monocytes (%) (Auto) 10.6 % (1.0-10.0) H Eosinophils (%) (Auto) 0.0 % (0.0-3.0) Basophils (%) (Auto) 1.0 % (0.0-2.0) D-Dimer 4.19 mg/L FEU (0.00-0.49) H Sodium Level 141 MMOL/L (136-145) Potassium Level 3.7 MMOL/L (3.5-5.1) Chloride Level 107 MMOL/L (98-107) Carbon Dioxide Level 27 MMOL/L (21-32) Anion Gap 8 mmol/L (5-15) Blood Urea Nitrogen 16 mg/dL (7-18) Creatinine 1.0 MG/DL (0.55-1.30) Estimat Glomerular Filtration Rate > 60 mL/min (>60) Glucose Level 42 MG/DL (74-106) #L Hemoglobin A1c 9.9 % (4.3-6.0) H Uric Acid 5.0 MG/DL (2.6-7.2) Calcium Level 8.7 MG/DL (8.5-10.1) Phosphorus Level 2.0 MG/DL (2.5-4.9) L Magnesium Level 1.8 MG/DL (1.8-2.4) Iron Level 53 ug/dL (50-175) Total Iron Binding Capacity 193 ug/dL (250-450) L Percent Iron Saturation 27 % (15-50) Unsaturated Iron Binding 140 ug/dL (112-346) Ferritin 84 NG/ML (8-388) Total Bilirubin 0.4 MG/DL (0.2-1.0) Aspartate Amino Transf (AST/SGOT) 27 U/L (15-37) Alanine Aminotransferase (ALT/SGPT) 24 U/L (12-78) Alkaline Phosphatase 60 U/L (46-116) C-Reactive Protein, Quantitative 0.6 mg/dL (0.00-0.90) Pro-B-Type Natriuretic Peptide 638 pg/mL (0-125) H Total Protein 6.7 G/DL (6.4-8.2) Albumin 2.4 G/DL (3.4-5.0) L Globulin 4.3 g/dL Albumin/Globulin Ratio 0.6 (1.0-2.7) L Triglycerides Level 73 MG/DL (30-150) Cholesterol Level 125 MG/DL (< 200) LDL Cholesterol 60 mg/dL (<100) HDL Cholesterol 44 MG/DL (40-60) Cholesterol/HDL Ratio 2.8 (3.3-4.4) L Vitamin B12 Level 1843 PG/ML (193-986) H Folate 5.7 NG/ML (8.6-58.9) L Test 06/14/20 06:32 06/14/20 06:57 06/14/20 07:32 POC Whole Blood Glucose 50 MG/DL (74-106) L 67 MG/DL (74-106) L 150 MG/DL (74-106) H Intake and Output 06/13/20 06/14/20 19:00 07:00 Intake Total 250 ml 550 ml Balance 250 ml 550 ml IV Total 250 ml 550 ml Objective PHYSICAL EXAMINATION: GENERAL: The patient is well-developed and well-nourished female, in moderate abdominal pain distress. HEENT: Eyes, pupils are equal and responsive to light and accommodation. Extraocular movements are intact. NECK: Supple without lymphadenopathy. CHEST: Lungs are clear to auscultation bilaterally without wheezes or rales. CARDIOVASCULAR: Regular rate. S1 and S2 are normal without murmurs, rubs, or gallops. ABDOMEN: Soft, nontender, nondistended. Positive bowel sounds. No evidence of hepatosplenomegaly. Currently, no rebound or guarding noted. EXTREMITIES: Negative for clubbing, cyanosis, or edema. RECTAL/GENITAL: Not performed. NEUROLOGIC: Cranial nerves II through XII are grossly intact without focal deficits. Motor strength is 5/5 bilaterally. Deep tendon reflexes are 2+ plantar. Assessment/Plan Assessment/Plan ASSESSMENT: This is a 79-year-old female. 1. COVID-19 positive. 2. Bilateral pneumonia. 3. Abdominal pain. 4. Diabetes type 2. 5. Hypertension. 6. Renal failure. 7. Glaucoma. 8. Urinary frequency. TREATMENT: 1. COVID-19/bilateral pneumonia. An Infectious Disease consultation has been obtained with Dr. Ahuja . A Pulmonary consultation has been obtained with Dr. Ulloa. Follow recommendations of Pulmonary and Infectious Diseases. ABX=ceftriaxone. continue Decadron day #3/10 2. Abdominal pain, this may be secondary to COVID-19. The patient is currently requesting morphine for abdominal pain. A urine culture is pending. 3. Diabetes type 2. Continue 70/30 insulin as above. A NovoLog sliding scale has been instituted. 4. Hypertension. The patient is currently receiving p.r.n. hydralazine. 5. Renal failure. Nephrology consultation has been obtained with Dr. Reeves. 6. Glaucoma. Continue eye drops as above. Isael Hutton MD Jun 14, 2020 10:01
--- NOTE | 2020-06-14 11:38 | Pulmonology Progress Note ---
Subjective ROS Limited/Unobtainable: No Allergies: Coded Allergies: CODEINE (Verified Allergy, Mild, Itching, 08/26/13) SULFA (SULFONAMIDE ANTIBIOTICS) (Verified Adverse Reaction, Mild, 08/26/13) VOMIT Subjective AFVSS on RA No F/C, no cough, no SOB, no wheezing, no CP Abx pain better no NVDC Objective Last 24 Hour Vital Signs Date Time Temp Pulse Resp B/P (MAP) Pulse Ox O2 Delivery O2 Flow Rate FiO2 06/14/20 09:00 Room Air 06/14/20 08:00 98.1 61 19 161/66 (97) 97 06/14/20 04:00 98.3 58 18 150/68 (95) 97 06/14/20 00:00 97.9 56 18 157/67 (97) 97 06/13/20 21:00 Room Air 06/13/20 20:00 98.3 54 18 157/68 (97) 96 06/13/20 16:00 97.7 51 18 158/67 (97) 96 06/13/20 13:00 120/56 (77) 06/13/20 12:00 97.0 57 18 160/73 (102) 94 Intake and Output 06/13/20 06/14/20 19:00 07:00 Intake Total 250 ml 550 ml Balance 250 ml 550 ml IV Total 250 ml 550 ml General Appearance: no acute distress HEENT: normocephalic, atraumatic, anicteric, mucous membranes moist Respiratory: lungs clear, no respiratory distress, no accessory muscle use Cardiovascular: normal rate, regular rhythm Abdomen: soft, non tender, non distended Extremities: no edema, pedal pulses normal Neurologic: no motor/sensory deficits, alert, responsive Musculoskeletal: normal muscle bulk Laboratory Tests 06/13/20 16:33: POC Whole Blood Glucose 149H 06/13/20 21:42: POC Whole Blood Glucose 122H 06/14/20 05:14: White Blood Count 6.5#, Red Blood Count 3.92L, Hemoglobin 10.9L, Hematocrit 33.9L, Mean Corpuscular Volume 87, Mean Corpuscular Hemoglobin 27.9, Mean Corpuscular Hemoglobin Concent 32.2, Red Cell Distribution Width 13.1, Platelet Count 348, Mean Platelet Volume 6.1L, Neutrophils (%) (Auto) 54.6, Lymphocytes (%) (Auto) 33.8, Monocytes (%) (Auto) 10.6H, Eosinophils (%) (Auto) 0.0, Basophils (%) (Auto) 1.0, D-Dimer 4.19H, Sodium Level 141, Potassium Level 3.7, Chloride Level 107, Carbon Dioxide Level 27, Anion Gap 8, Blood Urea Nitrogen 16, Creatinine 1.0, Estimat Glomerular Filtration Rate > 60, Glucose Level 42#L, Hemoglobin A1c 9.9H, Uric Acid 5.0, Calcium Level 8.7, Phosphorus Level 2.0L, Magnesium Level 1.8, Iron Level 53, Total Iron Binding Capacity 193L, Percent Iron Saturation 27, Unsaturated Iron Binding 140, Ferritin 84, Total Bilirubin 0.4, Aspartate Amino Transf (AST/SGOT) 27, Alanine Aminotransferase (ALT/SGPT) 24, Alkaline Phosphatase 60, C-Reactive Protein, Quantitative 0.6, Pro-B-Type Natriuretic Peptide 638H, Total Protein 6.7, Albumin 2.4L, Globulin 4.3, Albumin/Globulin Ratio 0.6L, Triglycerides Level 73, Cholesterol Level 125, LDL Cholesterol 60, HDL Cholesterol 44, Cholesterol/HDL Ratio 2.8L, Vitamin B12 Level 1843H, Folate 5.7L 06/14/20 06:32: POC Whole Blood Glucose 50L 06/14/20 06:57: POC Whole Blood Glucose 67L 06/14/20 07:32: POC Whole Blood Glucose 150H Current Medications Medications (Trade) Dose Ordered Sig/Hever Route PRN Reason Start Time Stop Time Status Last Admin Dose Admin Acetaminophen (Tylenol) 650 mg Q6H PRN ORAL Temp >100.5 06/11/20 10:45 07/11/20 10:44 Acetaminophen (Tylenol) 650 mg Q6H PRN ORAL Mild Pain (Pain Scale 1-3) 06/11/20 11:15 07/11/20 11:14 Acetaminophen/ Hydrocodone Bitart ([place] 5/325) 1 tab Q6H PRN ORAL Moderate Pain (Pain Scale 4-6) 06/11/20 10:45 06/18/20 10:44 Albuterol Sulfate (Proventil MDI) 2 puff Q4H PRN INH Shortness of Breath 06/13/20 17:45 09/11/20 17:44 Aspirin (Ecotrin) 81 mg DAILY ORAL 06/12/20 09:00 07/27/20 08:59 06/14/20 08:50 Bethanechol Chloride (Urecholine) 10 mg THREE TIMES A DAY ORAL 06/11/20 18:00 07/11/20 17:59 06/14/20 08:50 Brimonidine Tartrate (Alphagan) 1 drop Q8HR RIGHT EYE 06/11/20 22:00 09/09/20 21:59 06/14/20 06:30 Ceftriaxone Sodium 1 gm/ Dextrose 55 ml @ 110 mls/hr DAILY IVPB 06/12/20 09:00 06/19/20 08:59 06/14/20 08:50 Dexamethasone Sodium Phosphate (Decadron 4mg/ml vial) 6 mg DAILY IVP 06/12/20 17:30 06/21/20 09:01 06/14/20 08:50 Dextrose (Dextrose 50%) 25 ml Q30M PRN IV Hypoglycemia 06/11/20 10:45 09/09/20 10:44 Dextrose (Dextrose 50%) 50 ml Q30M PRN IV Hypoglycemia 06/11/20 10:45 09/09/20 10:44 Docusate Sodium (Colace) 100 mg THREE TIMES A DAY ORAL 06/11/20 13:00 07/11/20 12:59 06/14/20 08:50 Enoxaparin Sodium (Lovenox) 40 mg DAILY SUBQ 06/12/20 09:00 09/10/20 08:59 06/14/20 08:55 Folic Acid (Folate) 2 mg DAILY ORAL 06/14/20 11:00 07/14/20 10:59 Guaifenesin (Robitussin) 100 mg Q6H PRN ORAL For Cough 06/12/20 17:30 09/10/20 17:29 06/13/20 04:10 Insulin Aspart (NovoLOG Mix 70/ 30) 50 units EVERY 12 HOURS SUBQ 06/11/20 21:00 09/09/20 20:59 06/14/20 08:59 Insulin Aspart (NovoLOG) BEFORE MEALS AND HS SUBQ 06/11/20 11:30 09/09/20 11:29 06/13/20 17:21 Morphine Sulfate (Morphine Sulfate) 4 mg Q4H PRN IVP Severe Pain (Pain Scale 7-10) 06/11/20 10:45 06/18/20 10:44 06/13/20 07:04 Ondansetron HCl (Zofran) 4 mg Q4H PRN IVP Nausea & Vomiting 06/11/20 10:45 07/11/20 10:44 Pantoprazole (Protonix) 40 mg EVERY 12 HOURS IVP 06/11/20 21:00 07/11/20 20:59 06/14/20 08:50 Phosphorus (Phospha 250 Neutral) 250 mg THREE TIMES A DAY ORAL 06/14/20 11:00 07/14/20 10:59 Sodium Chloride 1,000 ml @ 50 mls/hr Q20H IV 06/12/20 10:15 07/12/20 10:14 06/14/20 03:10 Timolol Maleate (timoloL maleate 0.5% Op Soln) 1 drop TWICE A DAY BOTH EYES 06/11/20 18:00 07/11/20 17:59 06/14/20 09:01 Assessment/Plan Problems: (1) Elevated d-dimer Assessment & Plan: S/P neg DUPLEX (2) Hypoxemia Assessment & Plan: RESOLVED (3) UTI (urinary tract infection) (4) Pneumonia due to COVID-19 virus (5) Abdominal pain (6) Diabetes mellitus type II, uncontrolled (7) Hypertension Assessment/Plan Optimize pulmonary hygiene/mobilize as tolerated PRN O2 DEX D3, would D/C nex 1-2 days if oxygenation stable REM not given 2/2 stable oxygenation Abx for UTI per ID Monitor inflammatory markers Monitor volumes and renal functios DVT Px: LMWH --> would D/C home on Xarelto 10 mg PO qDaily to complete 30 days FC Bradley Ulloa MD Jun 14, 2020 11:38
[2020-06-14] MEDS: Phospha 250 Neutral tab ORAL SCH ×3 (11:59→17:22)
--- NOTE | 2020-06-14 12:16 | NUR ---
CASE MANAGEMENT:REVIEW SI;COVID PNEUMONIA. UTI. DM. 98.3 54 18 161/66 96% ON RA GLU+ 42 BNP+ 638 ALB- 2.4 VIT B12+ 1843 IS;PHOSPHORUS PO TID DECADRON IV QD OVF NaCL @ 50 ML/HR ROCEPHIN IV QD LOVENOX SQ QD PROTONIX IV Q12 MED SURG STATUS DCP;FROM HOME DC PLANNING HOME WITH HOME HEALTH (PROGRESSIVE 1999)
--- NOTE | 2020-06-14 12:28 | NUR ---
NURSE NOTES: Patient's Blood Glucose check is 63; cup of orange juice provided; patient asymptomatic; MD Trejo aware, no new order received; will recheck blood sugar is 15 minutes;
[2020-06-14] MEDS ORDERED: MYRBETRIQ50 MG PO (12:35)
[2020-06-14] MEDS ORDERED: JANUMET 50-1,01 EACH ORAL (12:35)
[2020-06-14] MEDS ORDERED: AVAPRO300 MG ORAL (12:35)
[2020-06-14] MEDS ORDERED: jardiance PO (12:35)
[2020-06-14] MEDS ORDERED: XYLOCAINE35.44 GM TP (12:35)
[2020-06-14] MEDS ORDERED: ATORVASTATIN CA40 MG ORAL (12:35)
[2020-06-14] MEDS ORDERED: RHOPRESSA2.5 ML OP (12:36)
--- NOTE | 2020-06-14 12:40 | NUR ---
NURSE NOTES: Blood Sugar rechecked after 15 minutes, 91; will keep monitoring.
[2020-06-14] MEDS ORDERED: TERCONAZOLE45 GM VG (12:43)
[2020-06-14] MEDS ORDERED: PROAIR HFA8.5 GM INH (12:43)
[2020-06-14] MEDS ORDERED: OXYCODONE HCL15 M1 ORAL (12:43)
[2020-06-14] MEDS ORDERED: LYRICA150 MG ORAL (12:43)
[2020-06-14] MEDS ORDERED: CEPHALEXIN500 MG ORAL (12:43)
[2020-06-14] MEDS ORDERED: BACLOFEN10 MG ORAL (12:43)
--- NOTE | 2020-06-14 12:48 | Surgery Progress Note ---
Surgery Progress Note Subjective Symptoms: improved, pain absent, tolerating diet, passing flatus Objective Last 24 Hour Vital Signs Date Time Temp Pulse Resp B/P (MAP) Pulse Ox O2 Delivery O2 Flow Rate FiO2 06/14/20 12:00 98.2 59 18 149/66 (93) 97 06/14/20 09:00 Room Air 06/14/20 08:00 98.1 61 19 161/66 (97) 97 06/14/20 04:00 98.3 58 18 150/68 (95) 97 06/14/20 00:00 97.9 56 18 157/67 (97) 97 06/13/20 21:00 Room Air 06/13/20 20:00 98.3 54 18 157/68 (97) 96 06/13/20 16:00 97.7 51 18 158/67 (97) 96 06/13/20 13:00 120/56 (77) I&O Intake and Output 06/13/20 06/14/20 19:00 07:00 Intake Total 250 ml 550 ml Balance 250 ml 550 ml IV Total 250 ml 550 ml Cardiovascular: RSR Respiratory: clear Abdomen: soft, non-tender, present bowel sounds Extremities: no edema, no tenderness, no cyanosis Laboratory Tests Test 06/13/20 16:33 06/13/20 21:42 06/14/20 05:14 06/14/20 06:32 POC Whole Blood Glucose 149 MG/DL (74-106) H 122 MG/DL (74-106) H 50 MG/DL (74-106) L White Blood Count 6.5 K/UL (4.8-10.8) # Red Blood Count 3.92 M/UL (4.20-5.40) L Hemoglobin 10.9 G/DL (12.0-16.0) L Hematocrit 33.9 % (37.0-47.0) L Mean Corpuscular Volume 87 FL (80-99) Mean Corpuscular Hemoglobin 27.9 PG (27.0-31.0) Mean Corpuscular Hemoglobin Concent 32.2 G/DL (32.0-36.0) Red Cell Distribution Width 13.1 % (11.6-14.8) Platelet Count 348 K/UL (150-450) Mean Platelet Volume 6.1 FL (6.5-10.1) L Neutrophils (%) (Auto) 54.6 % (45.0-75.0) Lymphocytes (%) (Auto) 33.8 % (20.0-45.0) Monocytes (%) (Auto) 10.6 % (1.0-10.0) H Eosinophils (%) (Auto) 0.0 % (0.0-3.0) Basophils (%) (Auto) 1.0 % (0.0-2.0) D-Dimer 4.19 mg/L FEU (0.00-0.49) H Sodium Level 141 MMOL/L (136-145) Potassium Level 3.7 MMOL/L (3.5-5.1) Chloride Level 107 MMOL/L (98-107) Carbon Dioxide Level 27 MMOL/L (21-32) Anion Gap 8 mmol/L (5-15) Blood Urea Nitrogen 16 mg/dL (7-18) Creatinine 1.0 MG/DL (0.55-1.30) Estimat Glomerular Filtration Rate > 60 mL/min (>60) Glucose Level 42 MG/DL (74-106) #L Hemoglobin A1c 9.9 % (4.3-6.0) H Uric Acid 5.0 MG/DL (2.6-7.2) Calcium Level 8.7 MG/DL (8.5-10.1) Phosphorus Level 2.0 MG/DL (2.5-4.9) L Magnesium Level 1.8 MG/DL (1.8-2.4) Iron Level 53 ug/dL (50-175) Total Iron Binding Capacity 193 ug/dL (250-450) L Percent Iron Saturation 27 % (15-50) Unsaturated Iron Binding 140 ug/dL (112-346) Ferritin 84 NG/ML (8-388) Total Bilirubin 0.4 MG/DL (0.2-1.0) Aspartate Amino Transf (AST/SGOT) 27 U/L (15-37) Alanine Aminotransferase (ALT/SGPT) 24 U/L (12-78) Alkaline Phosphatase 60 U/L (46-116) C-Reactive Protein, Quantitative 0.6 mg/dL (0.00-0.90) Pro-B-Type Natriuretic Peptide 638 pg/mL (0-125) H Total Protein 6.7 G/DL (6.4-8.2) Albumin 2.4 G/DL (3.4-5.0) L Globulin 4.3 g/dL Albumin/Globulin Ratio 0.6 (1.0-2.7) L Triglycerides Level 73 MG/DL (30-150) Cholesterol Level 125 MG/DL (< 200) LDL Cholesterol 60 mg/dL (<100) HDL Cholesterol 44 MG/DL (40-60) Cholesterol/HDL Ratio 2.8 (3.3-4.4) L Vitamin B12 Level 1843 PG/ML (193-986) H Folate 5.7 NG/ML (8.6-58.9) L Test 06/14/20 06:57 06/14/20 07:32 06/14/20 12:00 POC Whole Blood Glucose 67 MG/DL (74-106) L 150 MG/DL (74-106) H 63 MG/DL (74-106) L Plan Problems: (1) Constipation (2) Diabetes mellitus (3) Abdominal pain Assessment & Plan: 79 female abdominal pain cramping generalized in nature. CT reviewed large hiatal hernia postsurgical changes and clips identified around the esophagus GE junction potential prior intervention for hernia. Stomach and GI otherwise noted. Secondary to the duodenum noted. Abdominal exam fairly benign labs noted. Nonobstructed. Potentially constipated. Initiate bowel regimen. Okay for diet. Will follow with serial abdominal exams. Thank you let me participate patient's care Redemonstration of large hiatal hernia, possibly paraesophageal in nature. Correlate with dedicated chest imaging and/or esophagram for better characterization. Postsurgical clips are seen adjacent to the distal esophagus and at the GE junction, correlate with surgical history. Prominent bilateral groundglass opacities of the visualized thorax are noted. Findings may represent multifocal infection. Typical and atypical etiologies can be considered. Aspiration may also be an etiology of these findings. There is no pleural effusion of the visualized lung bases. Coronary artery calcification is noted. Solid organ evaluation is limited due to noncontrast technique. Patient is status post cholecystectomy. The unenhanced liver is grossly unremarkable. A stable 0.6 cm right posterior perihepatic nodule is identified in image 38 series 3. The pancreas demonstrates diffuse parenchymal atrophy, without pancreatic ductal dilatation. The spleen is unremarkable. There is bilateral adrenal gland thickening and nodularity with probable 1.5 cm right adrenal adenoma. Correlation with abdominal MRI is recommended for definitive characterization. There is no hydronephrosis or nephrolithiasis of the kidneys. Evaluation of the bowel is limited due to lack of oral contrast. Large hiatal hernia, possibly paraesophageal in nature as described above. Stomach is otherwise under distended, limiting evaluation. Postsurgical clips are seen in the region of the second portion of the duodenum. High density localized to the first portion of the duodenum, image 39 series 3, is nonspecific and may represent focal blood products. Consider correlation with the EGD for better characterization. There is no small bowel obstruction. The appendix is not inflamed. There is mild stool burden of the colon which limits evaluation of the colonic mucosa. Prominent soft tissue thickening is noted at the rectum near the anal verge. Correlation with colonoscopy is recommended to exclude neoplasm in this location, versus other proctitis. There is no ascites, free air, or loculated fluid collection. Mild haziness of the small bowel mesentery stable. Small volume nodes are identified, particularly along the pelvic sidewalls, left greater than right. Urinary bladder is relatively underdistended, living evaluation. Tiny nodular focus along the anterior superior margin of the urinary bladder, image 121 series 3, is unchanged, likely related to urachal remnant. Patient is status post hysterectomy. There is no aneurysm of the abdominal aorta. Moderate to severe atheromatous changes are identified. Stable soft tissue infiltrative changes are noted along the anterior superficial soft tissues. Correlate for injection. Cellulitis is considered less likely given chronicity. Degenerative changes of the visualized thoracolumbar spine are identified. There is redemonstration of grade 1 anterolisthesis of L3 on L4 and severe height loss at L4-L5 levels. Correlate with spinal MRI as clinically warranted. IMPRESSION: Prominent bilateral groundglass opacities of the visualized thorax. Findings may represent multifocal infection. Typical and atypical etiologies can be considered, include COVID pneumonia. Correlate with dedicated CT of the chest for better characterization. Follow to resolution with repeat chest CT in 6 weeks. Aspiration may also be an etiology of these findings as well, given the large hiatal hernia, possibly paraesophageal in morphology. Postsurgical clips are seen in the region of the second portion of the duodenum. High density localized to the first portion of the duodenum, image 39 series 3, is nonspecific and may represent focal blood products. Consider correlation with the EGD for better characterization. Correlate for signs and symptoms of GI bleeding. Prominent soft tissue thickening is noted at the rectum near the anal verge. Correlation with colonoscopy is recommended to exclude neoplasm in this location, versus other proctitis. Stable soft tissue infiltrative changes are noted along the anterior superficial soft tissues. Correlate for injection. Soft tissue cellulitis is considered less likely. Clinical correlation is recommended. A nonspecific indeterminate right posterior perihepatic nodule measuring 0.6 cm is stable. Follow-up CT abdomen pelvis is recommended in 6 months to evaluate for stability of these findings. (4) Pneumonia due to COVID-19 virus Assessment & Plan: Covid positive treatment as per amisha and RIO will follow thank you (5) Hypertension (6) ACS (acute coronary syndrome) (7) Major depression (8) PUD (peptic ulcer disease) (9) GERD (gastroesophageal reflux disease) (10) DDD (degenerative disc disease), lumbar (11) Radiculopathy of lumbar region (12) Accelerated hypertension (13) Vitreous hemorrhage of right eye (14) Diabetes mellitus type II, uncontrolled (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 Taco Brock Jun 14, 2020 12:48
--- NOTE | 2020-06-14 13:41 | Nephrology Progress Note ---
Assessment/Plan Problem List: (1) MITZI (acute kidney injury) (2) Diabetes mellitus type II, uncontrolled (3) Hypertension (4) Pneumonia due to COVID-19 virus Assessment Renal failure, most likely acute on chronic Abdominal pain, etiology to be determined Pneumonia due to COVID-19 19 virus Hypertension Hyperglycemia Plan June 14: Labs reviewed. Renal parameters stable. Low phosphorus addressed. Folic acid supplement given. Continue per consultants. June 13: Renal parameters are stable. Continue to monitor electrolytes. Medication list reviewed. Anemia work-up initiated. June 12: Today's labs pending. Normal saline 50 cc an hour started. Continue per end user consultant. Further comments after checking the labs. Patient started on dexamethasone Lovenox and antibiotics We will monitor renal parameters and blood sugar IV Protonix given Anemia work-up Urine analysis and urine studies Avoid nephrotoxic's Per orders Subjective ROS Limited/Unobtainable: No Constitutional: Reports: malaise Objective Objective Last 24 Hour Vital Signs Date Time Temp Pulse Resp B/P (MAP) Pulse Ox O2 Delivery O2 Flow Rate FiO2 06/14/20 12:00 98.2 59 18 149/66 (93) 97 06/14/20 09:00 Room Air 06/14/20 08:00 98.1 61 19 161/66 (97) 97 06/14/20 04:00 98.3 58 18 150/68 (95) 97 06/14/20 00:00 97.9 56 18 157/67 (97) 97 06/13/20 21:00 Room Air 06/13/20 20:00 98.3 54 18 157/68 (97) 96 06/13/20 16:00 97.7 51 18 158/67 (97) 96 Intake and Output 06/13/20 06/14/20 18:59 06:59 Intake Total 200 ml 600 ml Balance 200 ml 600 ml IV Total 200 ml 600 ml Current Medications Medications (Trade) Dose Ordered Sig/Hever Route PRN Reason Start Time Stop Time Status Last Admin Dose Admin Acetaminophen (Tylenol) 650 mg Q6H PRN ORAL Temp >100.5 06/11/20 10:45 07/11/20 10:44 Acetaminophen (Tylenol) 650 mg Q6H PRN ORAL Mild Pain (Pain Scale 1-3) 06/11/20 11:15 07/11/20 11:14 Acetaminophen/ Hydrocodone Bitart ([place] 5/325) 1 tab Q6H PRN ORAL Moderate Pain (Pain Scale 4-6) 06/11/20 10:45 06/18/20 10:44 Albuterol Sulfate (Proventil MDI) 2 puff Q4H PRN INH Shortness of Breath 06/13/20 17:45 09/11/20 17:44 Aspirin (Ecotrin) 81 mg DAILY ORAL 06/12/20 09:00 07/27/20 08:59 06/14/20 08:50 Bethanechol Chloride (Urecholine) 10 mg THREE TIMES A DAY ORAL 06/11/20 18:00 07/11/20 17:59 06/14/20 12:55 Brimonidine Tartrate (Alphagan) 1 drop Q8HR RIGHT EYE 06/11/20 22:00 09/09/20 21:59 06/14/20 06:30 Ceftriaxone Sodium 1 gm/ Dextrose 55 ml @ 110 mls/hr DAILY IVPB 06/12/20 09:00 06/19/20 08:59 06/14/20 08:50 Dexamethasone Sodium Phosphate (Decadron 4mg/ml vial) 6 mg DAILY IVP 06/12/20 17:30 06/21/20 09:01 06/14/20 08:50 Dextrose (Dextrose 50%) 25 ml Q30M PRN IV Hypoglycemia 06/11/20 10:45 09/09/20 10:44 Dextrose (Dextrose 50%) 50 ml Q30M PRN IV Hypoglycemia 06/11/20 10:45 09/09/20 10:44 Docusate Sodium (Colace) 100 mg THREE TIMES A DAY ORAL 06/11/20 13:00 07/11/20 12:59 06/14/20 12:55 Enoxaparin Sodium (Lovenox) 40 mg DAILY SUBQ 06/12/20 09:00 09/10/20 08:59 06/14/20 08:55 Folic Acid (Folate) 2 mg DAILY ORAL 06/14/20 11:00 07/14/20 10:59 06/14/20 11:59 Guaifenesin (Robitussin) 100 mg Q6H PRN ORAL For Cough 06/12/20 17:30 09/10/20 17:29 06/13/20 04:10 Insulin Aspart (NovoLOG Mix 70/ 30) 50 units EVERY 12 HOURS SUBQ 06/11/20 21:00 09/09/20 20:59 06/14/20 08:59 Insulin Aspart (NovoLOG) BEFORE MEALS AND HS SUBQ 06/11/20 11:30 09/09/20 11:29 06/13/20 17:21 Morphine Sulfate (Morphine Sulfate) 4 mg Q4H PRN IVP Severe Pain (Pain Scale 7-10) 06/11/20 10:45 06/18/20 10:44 06/13/20 07:04 Ondansetron HCl (Zofran) 4 mg Q4H PRN IVP Nausea & Vomiting 06/11/20 10:45 07/11/20 10:44 Pantoprazole (Protonix) 40 mg EVERY 12 HOURS IVP 06/11/20 21:00 07/11/20 20:59 06/14/20 08:50 Phosphorus (Phospha 250 Neutral) 250 mg THREE TIMES A DAY ORAL 06/14/20 11:00 07/14/20 10:59 06/14/20 12:55 Sodium Chloride 1,000 ml @ 50 mls/hr Q20H IV 06/12/20 10:15 07/12/20 10:14 06/14/20 03:10 Timolol Maleate (timoloL maleate 0.5% Op Soln) 1 drop TWICE A DAY BOTH EYES 06/11/20 18:00 07/11/20 17:59 06/14/20 09:01 Laboratory Tests 06/13/20 16:33: POC Whole Blood Glucose 149H 06/13/20 21:42: POC Whole Blood Glucose 122H 06/14/20 05:14: White Blood Count 6.5#, Red Blood Count 3.92L, Hemoglobin 10.9L, Hematocrit 33.9L, Mean Corpuscular Volume 87, Mean Corpuscular Hemoglobin 27.9, Mean Corpuscular Hemoglobin Concent 32.2, Red Cell Distribution Width 13.1, Platelet Count 348, Mean Platelet Volume 6.1L, Neutrophils (%) (Auto) 54.6, Lymphocytes (%) (Auto) 33.8, Monocytes (%) (Auto) 10.6H, Eosinophils (%) (Auto) 0.0, Basophils (%) (Auto) 1.0, D-Dimer 4.19H, Sodium Level 141, Potassium Level 3.7, Chloride Level 107, Carbon Dioxide Level 27, Anion Gap 8, Blood Urea Nitrogen 16, Creatinine 1.0, Estimat Glomerular Filtration Rate > 60, Glucose Level 42#L, Hemoglobin A1c 9.9H, Uric Acid 5.0, Calcium Level 8.7, Phosphorus Level 2.0L, Magnesium Level 1.8, Iron Level 53, Total Iron Binding Capacity 193L, Percent Iron Saturation 27, Unsaturated Iron Binding 140, Ferritin 84, Total Bilirubin 0.4, Aspartate Amino Transf (AST/SGOT) 27, Alanine Aminotransferase (ALT/SGPT) 24, Alkaline Phosphatase 60, C-Reactive Protein, Quantitative 0.6, Pro-B-Type Natriuretic Peptide 638H, Total Protein 6.7, Albumin 2.4L, Globulin 4.3, Albumin/Globulin Ratio 0.6L, Triglycerides Level 73, Cholesterol Level 125, LDL Cholesterol 60, HDL Cholesterol 44, Cholesterol/HDL Ratio 2.8L, Vitamin B12 Level 1843H, Folate 5.7L 06/14/20 06:32: POC Whole Blood Glucose 50L 06/14/20 06:57: POC Whole Blood Glucose 67L 06/14/20 07:32: POC Whole Blood Glucose 150H 06/14/20 12:00: POC Whole Blood Glucose 63L 06/14/20 13:07: POC Whole Blood Glucose [Pending] Height (Feet): 5 Height (Inches): 8.00 Weight (Pounds): 200 General Appearance: no apparent distress Cardiovascular: normal rate Respiratory/Chest: decreased breath sounds Abdomen: distended Melchor Reeves MD Jun 14, 2020 13:41
--- NOTE | 2020-06-14 17:25 | NUR ---
NURSE NOTES: While I am coming out of another patient room, I was told by the charge nurseCaridad that patient failed in the bath room; primary nurse, charge nurse Caridad and resource nurse Rohini went inside [facility] room to help patient; we helped patient get off the floor and assisted via walker and wheelchair to transfer patient to her bed; vital taken and stable; patient instructed to call for help, yellow gawn, yellow socks, sign at the door for fall percussion in place; neuro check initiated; charge nurseCaridad communicated MD Hutton regarding the situation; patient stable eating dinner.
--- NOTE | 2020-06-14 17:30 | NUR ---
NURSE NOTES: car runner informed Dr. Hutton of the fall incident with new order to get an PT eval again and ok to do the x-ray if patient complains of pain later due to fall. Endorsed to the primary nurse.
--- NOTE | 2020-06-14 18:47 | NUR ---
NURSE HAND-OFF: Important Events on Shift:fall; low blood sugar; Patient Status: Diet: Pending Orders: Pending Results/Labs: Pending MD notification: Latest Vital Signs: Temperature 97.0 , Pulse 56 , B/P 156 /81 , Respiratory Rate 19 , O2 SAT 94 , Room Air, O2 Flow Rate . Vital Sign Comment: Latest Rangel Fall Score: 85 Fall Risk: High Risk Safety Measures: Call light Within Reach, Bed Alarm Zone 1, Side Rails Side Rails x2, Bed position Low and Locked. Fall Precautions: Yellow Socks Yellow Gown Door Sign Patient Fall Education Report given to .
--- NOTE | 2020-06-14 19:28 | NUR ---
HAND-OFF: Report given to PATSY San. patine on bed; bed alarm on, side rails up x2; endoresed to the incoming nurse that patient high risk for fall;
--- NOTE | 2020-06-14 19:30 | NUR ---
NURSE NOTES: Received patient in no apparent distress. A&OX4. IV site patent and intact. Remind patient press call light whenever needs, patient fully understood. Fall education was given. Bed alarm on. Bed in lowest position. Call light within reach. Will continue to monitor.
[2020-06-15] VITALS (9 sets, daily range): BP systolic 142–177; BP diastolic 56–88
[2020-06-15] MEDS: Morphine Sulfate 4mg/ml Inj (IV USE ONLY) IVP PRN ×2 (03:21→23:22)
[2020-06-15] MEDS: Brimonidine 0.2% Opth Sol RIGHT EYE SCH ×3 (05:44→21:38)
--- NOTE | 2020-06-15 05:48 | Diagnostic Imaging Report ---
EXAM: XR Bilateral Si Joints CLINICAL HISTORY: FALL TECHNIQUE: X-ray bilateral si joints. 3 views COMPARISON: No relevant prior studies available. FINDINGS: The sacroiliac joints are unremarkable. There is no significant bony proliferation or erosion. There is no sclerosis or joint space narrowing. There is no acute fracture or dislocation. IMPRESSION: Unremarkable study.
--- NOTE | 2020-06-15 05:54 | Diagnostic Imaging Report ---
EXAM: XR Lumbosacral Spine, 2 or 3 Views CLINICAL HISTORY: FALL TECHNIQUE: Frontal and lateral views of the lumbar spine and sacrum. COMPARISON: CT scan from 06/11/2020 FINDINGS: The study is slightly limited by patient positioning-obliqued on the lateral view. There are 6 nonrib-bearing lumbar-type vertebral bodies. There is no evidence of acute fracture. There is stable severe narrowing of the L5-6 intervertebral disc space with endplate osteophytes. IMPRESSION: No obvious acute abnormality.
[2020-06-15 06:17] LABS: HEMOGLOBIN 10.6 G/DL (12.0-16.0); MEAN CORPUSCULAR VOLUME 89 FL (80-99); PLATELET COUNT 322 K/UL (150-450); RED BLOOD COUNT 3.84 M/UL (4.20-5.40); RED CELL DISTRIBUTION WIDTH 13.5 % (11.6-14.8); WHITE BLOOD COUNT 4.3 K/UL (4.8-10.8)
[2020-06-15] MEDS: NovoLOG Insulin Flexpen SUBQ SCH ×4 (06:30→21:35)
[2020-06-15 07:05] LABS: CALCIUM 9.2 MG/DL (8.5-10.1); CREATININE 1.1 MG/DL (0.55-1.30); POTASSIUM 3.8 MMOL/L (3.5-5.1)
--- NOTE | 2020-06-15 07:14 | NUR ---
NURSE HAND-OFF: Important Events on Shift: Patient c/o lower back pain, STAT lumbar xray ordered. Patient Status: Stable Diet: Cardiac, CCHO Pending Orders: Pending Results/Labs: Pending MD notification: Latest Vital Signs: Temperature 97.7 , Pulse 58 , B/P 151 /88 , Respiratory Rate 20 , O2 SAT 97 , Room Air, O2 Flow Rate . Vital Sign Comment: Latest Rangel Fall Score: 85 Fall Risk: High Risk Safety Measures: Call light Within Reach, Bed Alarm Zone 1, Side Rails Side Rails x2, Bed position Low and Locked. Fall Precautions: Yellow Socks Yellow Gown Door Sign Patient Fall Education Report given to Alma GARNER.
--- NOTE | 2020-06-15 07:26 | NUR ---
NURSE NOTES: Patient awake, alert x4; on room air, no sing of distress and shortness of breath; no sing of chest pain; IV Left For-arm NS 50cc running; patient fall risk, bed alarm on, side rails up x2, breaks engaged, bed at lowest position; bed side Commode within reach; patient instructed to call for help; will keep monitoring.
[2020-06-15] MEDS: Pantoprazole Inj IVP SCH ×2 (08:41→21:34)
[2020-06-15] MEDS: Docusate 100mg cap ORAL SCH ×3 (08:41→17:08)
[2020-06-15] MEDS: cefTRIAXone 1 GM in D5W 55 ML IVPB SCH (08:44)
[2020-06-15] MEDS: timoloL maleate 0.5% Op Soln 2.5ml BOTH EYES SCH ×2 (08:44→17:09)
[2020-06-15] MEDS: Bethanechol 10mg Tab ORAL SCH ×3 (08:44→17:09)
[2020-06-15] MEDS: Phospha 250 Neutral tab ORAL SCH ×3 (08:44→17:08)
[2020-06-15] MEDS: Aspirin EC 81mg tab ORAL SCH (08:44)
[2020-06-15] MEDS: Enoxaparin 40mg Inj SUBQ SCH (08:46)
--- NOTE | 2020-06-15 09:40 | Infectious Diseases Prog Note ---
Assessment/Plan 79yo F with: COVID+ Doing well on RA Normal WBC 06/11 COVID rapid positive CXR: Multifocal lung parenchymal opacities are better seen on the recent CT abdomen pelvis, new since prior CT from 03/16/2020. There is a hiatal hernia also better seen on the recent CT abdomen pelvis. R/o UTI Vaginal yeast infection, SP tx 06/11 UA+, UCx +yeast Cr 1.4 Abd pain x1 week, prompting pt to come to ED 06/11 CT A/P: Prominent bilateral groundglass opacities of the visualized thorax. Postsurgical clips are seen in the region of the second portion of the duodenum. High density localized to the first portion of the duodenum, image 39 series 3, is nonspecific and may represent focal blood products. Prominent soft tissue thickening is noted at the rectum near the anal verge. Stable soft tissue infiltrative changes are noted along the anterior superficial soft tissues. A nonspecific indeterminate right posterior perihepatic nodule measuring 0.6 cm is stable. HTN Plan: Cont empiric CTX #5/7 for UTI, on discharge can transition to cephalexin 500mg PO QID to complete rest of course (2 more days) On dex 6mg #4 per Pulm - recommend stopping given pt satting well on RA Dose fluconazole 150mg PO x1 more dose to complete tx for vaginal yeast infection As doing well on RA and UTI sx improving, ok to d/c home from ID standpoint on above PO abx. Ensure PCP f/u given COVID+ Needs COVID isolation through 06/21 Not candidate for remdesivir nor steroids given doing well on RA This hospital does not have access to convalescent plasma, and pt doing well on RA so not candidate for it anyways 06/11 SP fluconazole 150mg x1 for vaginal yeast infection Monitor CBC/CMP Monitor resp status Monitor temp curve, hemodynamics D/w RN Thank you for this consult. [facility] will continue to follow. Subjective Allergies: Coded Allergies: CODEINE (Verified Allergy, Mild, Itching, 08/26/13) SULFA (SULFONAMIDE ANTIBIOTICS) (Verified Adverse Reaction, Mild, 08/26/13) VOMIT AF NAD on RA satting well WBC 4.3 Feel yesterday, XRs were neg after fall Feeling very weak Still mild dysuria and vaginal itching, although overall much improved Objective Last 24 Hour Vital Signs Date Time Temp Pulse Resp B/P (MAP) Pulse Ox O2 Delivery O2 Flow Rate FiO2 06/15/20 07:00 97.7 97 06/15/20 04:00 98.2 58 20 151/85 (107) 96 06/15/20 03:00 97.6 96 06/15/20 00:00 97.2 63 20 159/77 (104) 97 06/14/20 23:00 97.5 97 06/14/20 22:00 97.6 97 06/14/20 21:00 Room Air 06/14/20 21:00 97.5 97 06/14/20 20:00 97.3 98 06/14/20 20:00 97.3 58 17 156/73 (100) 98 06/14/20 19:00 98.2 95 06/14/20 18:30 98.0 95 06/14/20 18:00 97.0 94 06/14/20 17:30 98.0 94 06/14/20 16:00 98.7 56 19 147/57 (87) 98 06/14/20 12:00 98.2 59 18 149/66 (93) 97 Height (Feet): 5 Height (Inches): 8.00 Weight (Pounds): 200 Gen: NAD HEENT: NCAT Pulm: BL chest rise on RA, non-labored Abd: Obese, soft, mildly TTP in the lower quadrants, no rebound or guarding Ext: No c/c/e Skin: No visible rashes Neuro: Awake, alert, itneractive Laboratory Tests Test 06/14/20 12:00 06/14/20 13:07 06/14/20 21:25 06/15/20 05:30 POC Whole Blood Glucose 63 MG/DL (74-106) L Pending 211 MG/DL (74-106) H White Blood Count 4.3 K/UL (4.8-10.8) L Red Blood Count 3.84 M/UL (4.20-5.40) L Hemoglobin 10.6 G/DL (12.0-16.0) L Hematocrit 34.0 % (37.0-47.0) L Mean Corpuscular Volume 89 FL (80-99) Mean Corpuscular Hemoglobin 27.7 PG (27.0-31.0) Mean Corpuscular Hemoglobin Concent 31.2 G/DL (32.0-36.0) L Red Cell Distribution Width 13.5 % (11.6-14.8) Platelet Count 322 K/UL (150-450) Mean Platelet Volume 7.1 FL (6.5-10.1) Neutrophils (%) (Auto) % (45.0-75.0) Lymphocytes (%) (Auto) % (20.0-45.0) Monocytes (%) (Auto) % (1.0-10.0) Eosinophils (%) (Auto) % (0.0-3.0) Basophils (%) (Auto) % (0.0-2.0) Differential Total Cells Counted 100 Neutrophils % (Manual) 52 % (45-75) Lymphocytes % (Manual) 42 % (20-45) Monocytes % (Manual) 5 % (1-10) Eosinophils % (Manual) 0 % (0-3) Basophils % (Manual) 0 % (0-2) Band Neutrophils 1 % (0-8) Platelet Estimate Adequate Platelet Morphology Normal Hypochromasia 1+ Sodium Level 142 MMOL/L (136-145) Potassium Level 3.8 MMOL/L (3.5-5.1) Chloride Level 107 MMOL/L (98-107) Carbon Dioxide Level 28 MMOL/L (21-32) Anion Gap 7 mmol/L (5-15) Blood Urea Nitrogen 15 mg/dL (7-18) Creatinine 1.1 MG/DL (0.55-1.30) Estimat Glomerular Filtration Rate 58.4 mL/min (>60) Glucose Level 127 MG/DL (74-106) H Calcium Level 9.2 MG/DL (8.5-10.1) Test 06/15/20 05:43 06/15/20 08:56 POC Whole Blood Glucose 129 MG/DL (74-106) H Pending Current Medications Medications (Trade) Dose Ordered Sig/Hever Route PRN Reason Start Time Stop Time Status Last Admin Dose Admin Acetaminophen (Tylenol) 650 mg Q6H PRN ORAL Temp >100.5 06/11/20 10:45 07/11/20 10:44 Acetaminophen (Tylenol) 650 mg Q6H PRN ORAL Mild Pain (Pain Scale 1-3) 06/11/20 11:15 07/11/20 11:14 Acetaminophen/ Hydrocodone Bitart ([place] 5/325) 1 tab Q6H PRN ORAL Moderate Pain (Pain Scale 4-6) 06/11/20 10:45 06/18/20 10:44 Albuterol Sulfate (Proventil MDI) 2 puff Q4H PRN INH Shortness of Breath 06/13/20 17:45 09/11/20 17:44 Aspirin (Ecotrin) 81 mg DAILY ORAL 06/12/20 09:00 07/27/20 08:59 06/15/20 08:44 Bethanechol Chloride (Urecholine) 10 mg THREE TIMES A DAY ORAL 06/11/20 18:00 07/11/20 17:59 06/15/20 08:44 Brimonidine Tartrate (Alphagan) 1 drop Q8HR RIGHT EYE 06/11/20 22:00 09/09/20 21:59 06/15/20 05:44 Ceftriaxone Sodium 1 gm/ Dextrose 55 ml @ 110 mls/hr DAILY IVPB 06/12/20 09:00 06/19/20 08:59 06/15/20 08:44 Dexamethasone Sodium Phosphate (Decadron 4mg/ml vial) 6 mg DAILY IVP 06/12/20 17:30 06/21/20 09:01 06/15/20 08:44 Dextrose (Dextrose 50%) 25 ml Q30M PRN IV Hypoglycemia 06/11/20 10:45 09/09/20 10:44 Dextrose (Dextrose 50%) 50 ml Q30M PRN IV Hypoglycemia 06/11/20 10:45 09/09/20 10:44 Docusate Sodium (Colace) 100 mg THREE TIMES A DAY ORAL 06/11/20 13:00 07/11/20 12:59 06/15/20 08:41 Enoxaparin Sodium (Lovenox) 40 mg DAILY SUBQ 06/12/20 09:00 09/10/20 08:59 06/15/20 08:46 Folic Acid (Folate) 2 mg DAILY ORAL 06/14/20 11:00 07/14/20 10:59 06/15/20 08:44 Guaifenesin (Robitussin) 100 mg Q6H PRN ORAL For Cough 06/12/20 17:30 09/10/20 17:29 06/13/20 04:10 Insulin Aspart (NovoLOG Mix 70/ 30) 50 units EVERY 12 HOURS SUBQ 06/11/20 21:00 09/09/20 20:59 06/15/20 09:05 Insulin Aspart (NovoLOG) BEFORE MEALS AND HS SUBQ 06/11/20 11:30 09/09/20 11:29 06/14/20 21:31 Morphine Sulfate (Morphine Sulfate) 4 mg Q4H PRN IVP Severe Pain (Pain Scale 7-10) 06/11/20 10:45 06/18/20 10:44 06/15/20 03:21 Ondansetron HCl (Zofran) 4 mg Q4H PRN IVP Nausea & Vomiting 06/11/20 10:45 07/11/20 10:44 Pantoprazole (Protonix) 40 mg EVERY 12 HOURS IVP 06/11/20 21:00 07/11/20 20:59 06/15/20 08:41 Phosphorus (Phospha 250 Neutral) 250 mg THREE TIMES A DAY ORAL 06/14/20 11:00 07/14/20 10:59 06/15/20 08:44 Sodium Chloride 1,000 ml @ 50 mls/hr Q20H IV 06/12/20 10:15 07/12/20 10:14 06/14/20 22:14 Timolol Maleate (timoloL maleate 0.5% Op Soln) 1 drop TWICE A DAY BOTH EYES 06/11/20 18:00 07/11/20 17:59 06/15/20 08:44 Milagro Ahuja M.D. Jun 15, 2020 09:40
--- NOTE | 2020-06-15 10:02 | NUR ---
PT NOTE Received MD order to re-evaluate patient s/p fall 06/14/20. Attempted to see patient, patient declining to participate at this time, states she's trying to eat breakfast. Ale RN notified, will re-attempt later as schedule permits.
[2020-06-15] MEDS ORDERED: Fluconazole 150mg tab ORAL SCH (12:00)
--- NOTE | 2020-06-15 12:12 | Nephrology Progress Note ---
Assessment/Plan Problem List: (1) MITZI (acute kidney injury) (2) Diabetes mellitus type II, uncontrolled (3) Hypertension (4) Pneumonia due to COVID-19 virus Assessment Renal failure, most likely acute on chronic Abdominal pain, etiology to be determined Pneumonia due to COVID-19 19 virus Hypertension Hyperglycemia Plan June 15: Labs reviewed. Renal parameters stable. Continue per consultants. Medication list reviewed. June 14: Labs reviewed. Renal parameters stable. Low phosphorus addressed. Folic acid supplement given. Continue per consultants. June 13: Renal parameters are stable. Continue to monitor electrolytes. Medication list reviewed. Anemia work-up initiated. June 12: Today's labs pending. Normal saline 50 cc an hour started. Continue per home planning consultant salesperson. Further comments after checking the labs. Patient started on dexamethasone Lovenox and antibiotics We will monitor renal parameters and blood sugar IV Protonix given Anemia work-up Urine analysis and urine studies Avoid nephrotoxic's Per orders Subjective ROS Limited/Unobtainable: No Constitutional: Reports: malaise Objective Objective Last 24 Hour Vital Signs Date Time Temp Pulse Resp B/P (MAP) Pulse Ox O2 Delivery O2 Flow Rate FiO2 06/15/20 09:00 Room Air 06/15/20 08:00 97.7 57 18 156/65 (95) 100 06/15/20 07:00 97.7 97 06/15/20 04:00 98.2 58 20 151/85 (107) 96 06/15/20 03:00 97.6 96 06/15/20 00:00 97.2 63 20 159/77 (104) 97 06/14/20 23:00 97.5 97 06/14/20 22:00 97.6 97 06/14/20 21:00 Room Air 06/14/20 21:00 97.5 97 06/14/20 20:00 97.3 98 06/14/20 20:00 97.3 58 17 156/73 (100) 98 06/14/20 19:00 98.2 95 06/14/20 18:30 98.0 95 06/14/20 18:00 97.0 94 06/14/20 17:30 98.0 94 06/14/20 16:00 98.7 56 19 147/57 (87) 98 Intake and Output 06/14/20 06/15/20 19:00 07:00 Intake Total 660 ml 1080 ml Balance 660 ml 1080 ml Intake Oral 480 ml IV Total 660 ml 600 ml # Voids 2 Current Medications Medications (Trade) Dose Ordered Sig/Hever Route PRN Reason Start Time Stop Time Status Last Admin Dose Admin Acetaminophen (Tylenol) 650 mg Q6H PRN ORAL Temp >100.5 06/11/20 10:45 07/11/20 10:44 Acetaminophen (Tylenol) 650 mg Q6H PRN ORAL Mild Pain (Pain Scale 1-3) 06/11/20 11:15 07/11/20 11:14 Acetaminophen/ Hydrocodone Bitart ([place] 5/325) 1 tab Q6H PRN ORAL Moderate Pain (Pain Scale 4-6) 06/11/20 10:45 06/18/20 10:44 Albuterol Sulfate (Proventil MDI) 2 puff Q4H PRN INH Shortness of Breath 06/13/20 17:45 09/11/20 17:44 Aspirin (Ecotrin) 81 mg DAILY ORAL 06/12/20 09:00 07/27/20 08:59 06/15/20 08:44 Bethanechol Chloride (Urecholine) 10 mg THREE TIMES A DAY ORAL 06/11/20 18:00 07/11/20 17:59 06/15/20 12:03 Brimonidine Tartrate (Alphagan) 1 drop Q8HR RIGHT EYE 06/11/20 22:00 09/09/20 21:59 06/15/20 05:44 Ceftriaxone Sodium 1 gm/ Dextrose 55 ml @ 110 mls/hr DAILY IVPB 06/12/20 09:00 06/19/20 08:59 06/15/20 08:44 Dexamethasone Sodium Phosphate (Decadron 4mg/ml vial) 6 mg DAILY IVP 06/12/20 17:30 06/21/20 09:01 06/15/20 08:44 Dextrose (Dextrose 50%) 25 ml Q30M PRN IV Hypoglycemia 06/11/20 10:45 09/09/20 10:44 Dextrose (Dextrose 50%) 50 ml Q30M PRN IV Hypoglycemia 06/11/20 10:45 09/09/20 10:44 Docusate Sodium (Colace) 100 mg THREE TIMES A DAY ORAL 06/11/20 13:00 07/11/20 12:59 06/15/20 12:03 Enoxaparin Sodium (Lovenox) 40 mg DAILY SUBQ 06/12/20 09:00 09/10/20 08:59 06/15/20 08:46 Fluconazole (Diflucan) 150 mg ONCE ORAL 06/15/20 12:00 06/15/20 13:00 06/15/20 12:06 Folic Acid (Folate) 2 mg DAILY ORAL 06/14/20 11:00 07/14/20 10:59 06/15/20 08:44 Guaifenesin (Robitussin) 100 mg Q6H PRN ORAL For Cough 06/12/20 17:30 09/10/20 17:29 06/13/20 04:10 Insulin Aspart (NovoLOG Mix 70/ 30) 50 units EVERY 12 HOURS SUBQ 06/11/20 21:00 09/09/20 20:59 06/15/20 09:05 Insulin Aspart (NovoLOG) BEFORE MEALS AND HS SUBQ 06/11/20 11:30 09/09/20 11:29 06/15/20 12:02 Morphine Sulfate (Morphine Sulfate) 4 mg Q4H PRN IVP Severe Pain (Pain Scale 7-10) 06/11/20 10:45 06/18/20 10:44 06/15/20 03:21 Ondansetron HCl (Zofran) 4 mg Q4H PRN IVP Nausea & Vomiting 06/11/20 10:45 07/11/20 10:44 Pantoprazole (Protonix) 40 mg EVERY 12 HOURS IVP 06/11/20 21:00 07/11/20 20:59 06/15/20 08:41 Phosphorus (Phospha 250 Neutral) 250 mg THREE TIMES A DAY ORAL 06/14/20 11:00 07/14/20 10:59 06/15/20 12:03 Sodium Chloride 1,000 ml @ 50 mls/hr Q20H IV 06/12/20 10:15 07/12/20 10:14 06/14/20 22:14 Timolol Maleate (timoloL maleate 0.5% Op Soln) 1 drop TWICE A DAY BOTH EYES 06/11/20 18:00 07/11/20 17:59 06/15/20 08:44 Laboratory Tests 06/14/20 13:07: POC Whole Blood Glucose [Pending] 06/14/20 21:25: POC Whole Blood Glucose 211H 06/15/20 05:30: White Blood Count 4.3L, Red Blood Count 3.84L, Hemoglobin 10.6L, Hematocrit 34.0L, Mean Corpuscular Volume 89, Mean Corpuscular Hemoglobin 27.7, Mean Corpuscular Hemoglobin Concent 31.2L, Red Cell Distribution Width 13.5, Platelet Count 322, Mean Platelet Volume 7.1, Neutrophils (%) (Auto) , Lymphocytes (%) (Auto) , Monocytes (%) (Auto) , Eosinophils (%) (Auto) , Basophils (%) (Auto) , Differential Total Cells Counted 100, Neutrophils % (Manual) 52, Lymphocytes % (Manual) 42, Monocytes % (Manual) 5, Eosinophils % (Manual) 0, Basophils % (Manual) 0, Band Neutrophils 1, Platelet Estimate Adequate, Platelet Morphology Normal, Hypochromasia 1+, Sodium Level 142, Potassium Level 3.8, Chloride Level 107, Carbon Dioxide Level 28, Anion Gap 7, Blood Urea Nitrogen 15, Creatinine 1.1, Estimat Glomerular Filtration Rate 58.4, Glucose Level 127H, Calcium Level 9.2 06/15/20 05:43: POC Whole Blood Glucose 129H 06/15/20 08:56: POC Whole Blood Glucose [Pending] 06/15/20 11:29: POC Whole Blood Glucose 87 Height (Feet): 5 Height (Inches): 8.00 Weight (Pounds): 200 General Appearance: no apparent distress Cardiovascular: normal rate Respiratory/Chest: decreased breath sounds Abdomen: distended Melchor Reeves MD Jun 15, 2020 12:11
--- NOTE | 2020-06-15 15:10 | Internal Med Progress Note ---
Subjective Physician Name Emre Trejo Attending Physician Emre Trejo MD Current Medications Medications (Trade) Dose Ordered Sig/Hever Route PRN Reason Start Time Stop Time Status Last Admin Dose Admin Acetaminophen (Tylenol) 650 mg Q6H PRN ORAL Temp >100.5 06/11/20 10:45 07/11/20 10:44 Acetaminophen (Tylenol) 650 mg Q6H PRN ORAL Mild Pain (Pain Scale 1-3) 06/11/20 11:15 07/11/20 11:14 Acetaminophen/ Hydrocodone Bitart ([place] 5/325) 1 tab Q6H PRN ORAL Moderate Pain (Pain Scale 4-6) 06/11/20 10:45 06/18/20 10:44 Albuterol Sulfate (Proventil MDI) 2 puff Q4H PRN INH Shortness of Breath 06/13/20 17:45 09/11/20 17:44 Aspirin (Ecotrin) 81 mg DAILY ORAL 06/12/20 09:00 07/27/20 08:59 06/15/20 08:44 Bethanechol Chloride (Urecholine) 10 mg THREE TIMES A DAY ORAL 06/11/20 18:00 07/11/20 17:59 06/15/20 12:03 Brimonidine Tartrate (Alphagan) 1 drop Q8HR RIGHT EYE 06/11/20 22:00 09/09/20 21:59 06/15/20 13:21 Ceftriaxone Sodium 1 gm/ Dextrose 55 ml @ 110 mls/hr DAILY IVPB 06/12/20 09:00 06/19/20 08:59 06/15/20 08:44 Dexamethasone Sodium Phosphate (Decadron 4mg/ml vial) 6 mg DAILY IVP 06/12/20 17:30 06/21/20 09:01 06/15/20 08:44 Dextrose (Dextrose 50%) 25 ml Q30M PRN IV Hypoglycemia 06/11/20 10:45 09/09/20 10:44 Dextrose (Dextrose 50%) 50 ml Q30M PRN IV Hypoglycemia 06/11/20 10:45 09/09/20 10:44 Docusate Sodium (Colace) 100 mg THREE TIMES A DAY ORAL 06/11/20 13:00 07/11/20 12:59 06/15/20 12:03 Enoxaparin Sodium (Lovenox) 40 mg DAILY SUBQ 06/12/20 09:00 09/10/20 08:59 06/15/20 08:46 Folic Acid (Folate) 2 mg DAILY ORAL 06/14/20 11:00 07/14/20 10:59 06/15/20 08:44 Guaifenesin (Robitussin) 100 mg Q6H PRN ORAL For Cough 06/12/20 17:30 09/10/20 17:29 06/13/20 04:10 Insulin Aspart (NovoLOG Mix 70/ 30) 50 units EVERY 12 HOURS SUBQ 06/11/20 21:00 09/09/20 20:59 06/15/20 09:05 Insulin Aspart (NovoLOG) BEFORE MEALS AND HS SUBQ 06/11/20 11:30 09/09/20 11:29 06/15/20 12:02 Morphine Sulfate (Morphine Sulfate) 4 mg Q4H PRN IVP Severe Pain (Pain Scale 7-10) 06/11/20 10:45 06/18/20 10:44 06/15/20 03:21 Ondansetron HCl (Zofran) 4 mg Q4H PRN IVP Nausea & Vomiting 06/11/20 10:45 07/11/20 10:44 Pantoprazole (Protonix) 40 mg EVERY 12 HOURS IVP 06/11/20 21:00 07/11/20 20:59 06/15/20 08:41 Phosphorus (Phospha 250 Neutral) 250 mg THREE TIMES A DAY ORAL 06/14/20 11:00 07/14/20 10:59 06/15/20 12:03 Sodium Chloride 1,000 ml @ 50 mls/hr Q20H IV 06/12/20 10:15 07/12/20 10:14 06/14/20 22:14 Timolol Maleate (timoloL maleate 0.5% Op Soln) 1 drop TWICE A DAY BOTH EYES 06/11/20 18:00 07/11/20 17:59 06/15/20 08:44 Allergies: Coded Allergies: CODEINE (Verified Allergy, Mild, Itching, 08/26/13) SULFA (SULFONAMIDE ANTIBIOTICS) (Verified Adverse Reaction, Mild, 08/26/13) VOMIT Subjective awake, alert, responsive, in room air, feeling very tired and lack of energy.no acute distress, hemoglobin: 10.6. Objective Last Vital Signs Date Time Temp Pulse Resp B/P (MAP) Pulse Ox O2 Delivery O2 Flow Rate FiO2 06/15/20 12:00 97.8 55 17 142/56 (84) 100 06/15/20 09:00 Room Air Laboratory Tests Test 06/14/20 21:25 06/15/20 05:30 06/15/20 05:43 06/15/20 08:56 POC Whole Blood Glucose 211 MG/DL (74-106) H 129 MG/DL (74-106) H Pending White Blood Count 4.3 K/UL (4.8-10.8) L Red Blood Count 3.84 M/UL (4.20-5.40) L Hemoglobin 10.6 G/DL (12.0-16.0) L Hematocrit 34.0 % (37.0-47.0) L Mean Corpuscular Volume 89 FL (80-99) Mean Corpuscular Hemoglobin 27.7 PG (27.0-31.0) Mean Corpuscular Hemoglobin Concent 31.2 G/DL (32.0-36.0) L Red Cell Distribution Width 13.5 % (11.6-14.8) Platelet Count 322 K/UL (150-450) Mean Platelet Volume 7.1 FL (6.5-10.1) Neutrophils (%) (Auto) % (45.0-75.0) Lymphocytes (%) (Auto) % (20.0-45.0) Monocytes (%) (Auto) % (1.0-10.0) Eosinophils (%) (Auto) % (0.0-3.0) Basophils (%) (Auto) % (0.0-2.0) Differential Total Cells Counted 100 Neutrophils % (Manual) 52 % (45-75) Lymphocytes % (Manual) 42 % (20-45) Monocytes % (Manual) 5 % (1-10) Eosinophils % (Manual) 0 % (0-3) Basophils % (Manual) 0 % (0-2) Band Neutrophils 1 % (0-8) Platelet Estimate Adequate Platelet Morphology Normal Hypochromasia 1+ Sodium Level 142 MMOL/L (136-145) Potassium Level 3.8 MMOL/L (3.5-5.1) Chloride Level 107 MMOL/L (98-107) Carbon Dioxide Level 28 MMOL/L (21-32) Anion Gap 7 mmol/L (5-15) Blood Urea Nitrogen 15 mg/dL (7-18) Creatinine 1.1 MG/DL (0.55-1.30) Estimat Glomerular Filtration Rate 58.4 mL/min (>60) Glucose Level 127 MG/DL (74-106) H Calcium Level 9.2 MG/DL (8.5-10.1) Test 06/15/20 11:29 POC Whole Blood Glucose 87 MG/DL (74-106) Intake and Output 06/14/20 06/15/20 19:00 07:00 Intake Total 660 ml 1080 ml Balance 660 ml 1080 ml Intake Oral 480 ml IV Total 660 ml 600 ml # Voids 2 Objective General: No acute distress, awake and alert HEENT: NCAT, sclera anicteric, PERRL, EOMI. Neck: Supple, no significant jugular venous distention, Lungs: fair inspiratory effort, decreased air at the bases, no Wheeze or Rales. Heart: Regular rate and rhythm, normal S1/S2, no murmurs Abdomen: soft, nontender, nondistended. Normoactive bowel sounds, morbid obesity / Rectal: Refused and deferred. Extremities: No Cyanosis , clubbing or edema. Neuro: A&O x 3, Able to move all extremities slowly. Skin: warm, no rashes or lesions Psych: Normal mood and affect Assessment/Plan Assessment/Plan ASSESSMENT: This is a 79-year-old female. 1. COVID-19 pneumonia. 2. Bilateral pneumonia. 3. Abdominal pain. 4. Diabetes type 2. 5. Hypertension. 6. acute Renal failure. 7. Glaucoma. 8. Urinary frequency. TREATMENT: 1. COVID-19/bilateral pneumonia. An Infectious Disease consultation has been obtained with Dr. Ahuja . A Pulmonary consultation has been obtained with Dr. Ulloa. Follow recommendations of Pulmonary and Infectious Diseases. ABX=ceftriaxone. 2. Abdominal pain, this may be secondary to COVID-19. The patient is currently requesting morphine for abdominal pain. urine culture noted. 3. Diabetes type 2. Continue 70/30 insulin as above. A NovoLog sliding scale has been instituted. 4. Hypertension. The patient is currently receiving p.r.n. hydralazine. 5. Renal failure. Nephrology consultation has been obtained with Dr. Reeves. 6. Glaucoma. Continue eye drops as above. consider discharge to nursing facility. On Decadron IV Physical therapy evaluation. Emre Trejo MD Jun 15, 2020 15:10
--- NOTE | 2020-06-15 18:02 | NUR ---
NURSE HAND-OFF: Important Events on Shift: New IV RFA; no falls Patient Status: Diet: Pending Orders: Pending Results/Labs: Pending MD notification: Latest Vital Signs: Temperature 97.8 , Pulse 95 , B/P 142 /75 , Respiratory Rate 20 , O2 SAT 100 , Room Air, O2 Flow Rate . Vital Sign Comment: Latest Rangel Fall Score: 85 Fall Risk: High Risk Safety Measures: Call light Within Reach, Bed Alarm Zone 1, Side Rails Side Rails x2, Bed position Low and Locked. Fall Precautions: Yellow Socks Yellow Gown Door Sign Patient Fall Education Report given to .
--- NOTE | 2020-06-15 18:08 | Surgery Progress Note ---
Surgery Progress Note Subjective Additional Comments imaging noted no n/v Objective Last 24 Hour Vital Signs Date Time Temp Pulse Resp B/P (MAP) Pulse Ox O2 Delivery O2 Flow Rate FiO2 06/15/20 16:00 97.8 95 20 142/75 (97) 100 06/15/20 12:00 97.8 55 17 142/56 (84) 100 06/15/20 11:00 97.0 56 17 152/62 (92) 100 06/15/20 09:00 Room Air 06/15/20 08:00 97.7 57 18 156/65 (95) 100 06/15/20 07:00 97.7 97 06/15/20 04:00 98.2 58 20 151/85 (107) 96 06/15/20 03:00 97.6 96 06/15/20 00:00 97.2 63 20 159/77 (104) 97 06/14/20 23:00 97.5 97 06/14/20 22:00 97.6 97 06/14/20 21:00 Room Air 06/14/20 21:00 97.5 97 06/14/20 20:00 97.3 98 06/14/20 20:00 97.3 58 17 156/73 (100) 98 06/14/20 19:00 98.2 95 06/14/20 18:30 98.0 95 I&O Intake and Output 06/14/20 06/15/20 19:00 07:00 Intake Total 660 ml 1080 ml Balance 660 ml 1080 ml Intake Oral 480 ml IV Total 660 ml 600 ml # Voids 2 Cardiovascular: RSR Respiratory: clear, decreased breath sounds Abdomen: soft, non-tender, present bowel sounds Extremities: no edema, no tenderness, no cyanosis Laboratory Tests Test 06/14/20 21:25 06/15/20 05:30 06/15/20 05:43 06/15/20 08:56 POC Whole Blood Glucose 211 MG/DL (74-106) H 129 MG/DL (74-106) H Pending White Blood Count 4.3 K/UL (4.8-10.8) L Red Blood Count 3.84 M/UL (4.20-5.40) L Hemoglobin 10.6 G/DL (12.0-16.0) L Hematocrit 34.0 % (37.0-47.0) L Mean Corpuscular Volume 89 FL (80-99) Mean Corpuscular Hemoglobin 27.7 PG (27.0-31.0) Mean Corpuscular Hemoglobin Concent 31.2 G/DL (32.0-36.0) L Red Cell Distribution Width 13.5 % (11.6-14.8) Platelet Count 322 K/UL (150-450) Mean Platelet Volume 7.1 FL (6.5-10.1) Neutrophils (%) (Auto) % (45.0-75.0) Lymphocytes (%) (Auto) % (20.0-45.0) Monocytes (%) (Auto) % (1.0-10.0) Eosinophils (%) (Auto) % (0.0-3.0) Basophils (%) (Auto) % (0.0-2.0) Differential Total Cells Counted 100 Neutrophils % (Manual) 52 % (45-75) Lymphocytes % (Manual) 42 % (20-45) Monocytes % (Manual) 5 % (1-10) Eosinophils % (Manual) 0 % (0-3) Basophils % (Manual) 0 % (0-2) Band Neutrophils 1 % (0-8) Platelet Estimate Adequate Platelet Morphology Normal Hypochromasia 1+ Sodium Level 142 MMOL/L (136-145) Potassium Level 3.8 MMOL/L (3.5-5.1) Chloride Level 107 MMOL/L (98-107) Carbon Dioxide Level 28 MMOL/L (21-32) Anion Gap 7 mmol/L (5-15) Blood Urea Nitrogen 15 mg/dL (7-18) Creatinine 1.1 MG/DL (0.55-1.30) Estimat Glomerular Filtration Rate 58.4 mL/min (>60) Glucose Level 127 MG/DL (74-106) H Calcium Level 9.2 MG/DL (8.5-10.1) Test 06/15/20 11:29 POC Whole Blood Glucose 87 MG/DL (74-106) Plan Problems: (1) Constipation (2) Diabetes mellitus (3) Abdominal pain Assessment & Plan: 79 female abdominal pain cramping generalized in nature. CT reviewed large hiatal hernia postsurgical changes and clips identified around the esophagus GE junction potential prior intervention for hernia. Stomach and GI otherwise noted. Secondary to the duodenum noted. Abdominal exam fairly benign labs noted. Nonobstructed. Potentially constipated. Initiate bowel regimen. Okay for diet. Will follow with serial abdominal exams. Thank you let me participate patient's care Redemonstration of large hiatal hernia, possibly paraesophageal in nature. Correlate with dedicated chest imaging and/or esophagram for better characterization. Postsurgical clips are seen adjacent to the distal esophagus and at the GE junction, correlate with surgical history. Prominent bilateral groundglass opacities of the visualized thorax are noted. Findings may represent multifocal infection. Typical and atypical etiologies can be considered. Aspiration may also be an etiology of these findings. There is no pleural effusion of the visualized lung bases. Coronary artery calcification is noted. Solid organ evaluation is limited due to noncontrast technique. Patient is status post cholecystectomy. The unenhanced liver is grossly unremarkable. A stable 0.6 cm right posterior perihepatic nodule is identified in image 38 series 3. The pancreas demonstrates diffuse parenchymal atrophy, without pancreatic ductal dilatation. The spleen is unremarkable. There is bilateral adrenal gland thickening and nodularity with probable 1.5 cm right adrenal adenoma. Correlation with abdominal MRI is recommended for definitive characterization. There is no hydronephrosis or nephrolithiasis of the kidneys. Evaluation of the bowel is limited due to lack of oral contrast. Large hiatal hernia, possibly paraesophageal in nature as described above. Stomach is otherwise under distended, limiting evaluation. Postsurgical clips are seen in the region of the second portion of the duodenum. High density localized to the first portion of the duodenum, image 39 series 3, is nonspecific and may represent focal blood products. Consider correlation with the EGD for better characterization. There is no small bowel obstruction. The appendix is not inflamed. There is mild stool burden of the colon which limits evaluation of the colonic mucosa. Prominent soft tissue thickening is noted at the rectum near the anal verge. Correlation with colonoscopy is recommended to exclude neoplasm in this location, versus other proctitis. There is no ascites, free air, or loculated fluid collection. Mild haziness of the small bowel mesentery stable. Small volume nodes are identified, particularly along the pelvic sidewalls, left greater than right. Urinary bladder is relatively underdistended, living evaluation. Tiny nodular focus along the anterior superior margin of the urinary bladder, image 121 series 3, is unchanged, likely related to urachal remnant. Patient is status post hysterectomy. There is no aneurysm of the abdominal aorta. Moderate to severe atheromatous changes are identified. Stable soft tissue infiltrative changes are noted along the anterior superficial soft tissues. Correlate for injection. Cellulitis is considered less likely given chronicity. Degenerative changes of the visualized thoracolumbar spine are identified. There is redemonstration of grade 1 anterolisthesis of L3 on L4 and severe height loss at L4-L5 levels. Correlate with spinal MRI as clinically warranted. IMPRESSION: Prominent bilateral groundglass opacities of the visualized thorax. Findings may represent multifocal infection. Typical and atypical etiologies can be considered, include COVID pneumonia. Correlate with dedicated CT of the chest for better characterization. Follow to resolution with repeat chest CT in 6 weeks. Aspiration may also be an etiology of these findings as well, given the large hiatal hernia, possibly paraesophageal in morphology. Postsurgical clips are seen in the region of the second portion of the duodenum. High density localized to the first portion of the duodenum, image 39 series 3, is nonspecific and may represent focal blood products. Consider correlation with the EGD for better characterization. Correlate for signs and symptoms of GI bleeding. Prominent soft tissue thickening is noted at the rectum near the anal verge. Correlation with colonoscopy is recommended to exclude neoplasm in this location, versus other proctitis. Stable soft tissue infiltrative changes are noted along the anterior superficial soft tissues. Correlate for injection. Soft tissue cellulitis is considered less likely. Clinical correlation is recommended. A nonspecific indeterminate right posterior perihepatic nodule measuring 0.6 cm is stable. Follow-up CT abdomen pelvis is recommended in 6 months to evaluate for stability of these findings. (4) Pneumonia due to COVID-19 virus Assessment & Plan: Covid positive treatment as per Ayana will follow thank you (5) Hypertension (6) ACS (acute coronary syndrome) (7) Major depression (8) PUD (peptic ulcer disease) (9) GERD (gastroesophageal reflux disease) (10) DDD (degenerative disc disease), lumbar (11) Radiculopathy of lumbar region (12) Accelerated hypertension (13) Vitreous hemorrhage of right eye (14) Diabetes mellitus type II, uncontrolled (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 Taco Brock Jun 15, 2020 18:08
--- NOTE | 2020-06-15 19:17 | NUR ---
HAND-OFF: Report given to PATSY Marrero. Endorsed to the incoming nurse that patient is High Risk for Fall; pateint stable at this time;
[2020-06-16] VITALS (8 sets, daily range): BP systolic 141–184; BP diastolic 63–78
[2020-06-16] MEDS: HydrALAZINE 50mg tab ORAL PRN ×2 (01:02→07:17)
[2020-06-16] MEDS: NovoLOG Insulin Flexpen SUBQ SCH ×4 (06:07→21:14)
[2020-06-16] MEDS: Brimonidine 0.2% Opth Sol RIGHT EYE SCH ×3 (06:07→22:43)
[2020-06-16] MEDS: Morphine Sulfate 4mg/ml Inj (IV USE ONLY) IVP PRN (06:08)
--- NOTE | 2020-06-16 07:30 | NUR ---
NURSE NOTES: Patient lying in bed awake. Complain of pain 8/10 and pain medication given by cable machine operator nurse. Will continue to monitor. IV dressing intact and dry. Bed lowest position and side rails up. Call light within reach. Will continue to monitor.
--- NOTE | 2020-06-16 07:47 | NUR ---
NURSE HAND-OFF: Important Events on Shift: Patient aaox4, on room air, no acute distress noted. IV fluid infusing, post fall assessment completed. Blood pressure elevated, contacted Dr. Trejo and received orders for daily and prn hypertensive medications. PRN pain management medication given x2, PRN hypertensive medication given x2. Blood pressure decreased, endorsed to AM shift to monitor. patient ambulated to restroom with walker and 1 person assist, fall education provided, fall precautions maintained. No falls, no injuries noted this shift. Blood sugar managemen provided. Patient is stable. Patient Status: Stable Diet: Cardiac/ CCHO (med) Pending Orders: D/C planning Pending Results/Labs: YES Pending MD notification:N/A Latest Vital Signs: Temperature 97.4 , Pulse 50 , B/P 162 /63 , Respiratory Rate 18 , O2 SAT 96 , Room Air, O2 Flow Rate . Vital Sign Comment: Stable, improved BP Latest Rangel Fall Score: 85 Fall Risk: High Risk Safety Measures: Call light Within Reach, Bed Alarm Zone 1, Side Rails Side Rails x2, Bed position Low and Locked. Fall Precautions: Yellow Socks Yellow Gown Door Sign Patient Fall Education Report given to PATSY Brown.
--- NOTE | 2020-06-16 08:10 | NUR ---
RD ASSESSMENT & RECOMMENDATIONS SEE CARE ACTIVITY FOR COMPLETE ASSESSMENT DAILY ESTIMATED NEEDS: Needs based on Pulmonary, obese, DM/ 74kg abw 20-25 kcals/kg 9067-9658 total kcals 1-1.5 g protein/kg 74-111 g total protein 20-25ml/kcal mL/kg 2306-1383 total fluid mLs NUTRITION DIAGNOSIS: Altered nutrition related lab values R/T diabetes, clinical condition as evidenced by hyperglycemia(242 on adm) and hypoglycemia(42), A1C 9.9, Uglu 4+ on adm. CURRENT DIET: CCHO MED/ Cardiac PO DIET RECOMMENDATIONS: CCHO MED, Cardiac ADDITIONAL RECOMMENDATIONS: * Continue daily wt monitoring on calibrated bed scale * Pt w/ hypoglycemic event, consider lowering insulin regimen * Monitor lytes, replete as needed (phos 2.0) * Monitor respiratory status w/ po intake
[2020-06-16 08:22] LABS: ALANINE AMINOTRANSFERASE 29 U/L (12-78); ALKALINE PHOSPHATASE 54 U/L (46-116); ANION GAP 8 mmol/L (5-15); ASPARTATE AMINO TRANSFERASE 29 U/L (15-37); BILIRUBIN,TOTAL < 0.1 MG/DL (0.2-1.0); BLOOD UREA NITROGEN 15 mg/dL (7-18); CALCIUM 8.7 MG/DL (8.5-10.1); CARBON DIOXIDE 27 MMOL/L (21-32); CHLORIDE 108 MMOL/L (98-107); CREATININE 0.9 MG/DL (0.55-1.30); PHOSPHORUS 3.5 MG/DL (2.5-4.9); POTASSIUM 4.4 MMOL/L (3.5-5.1); SODIUM 143 MMOL/L (136-145)
[2020-06-16 08:37] LABS: ALBUMIN 2.2 G/DL (3.4-5.0)
[2020-06-16] MEDS: cefTRIAXone 1 GM in D5W 55 ML IVPB SCH (09:15)
[2020-06-16] MEDS: Pantoprazole Inj IVP SCH (09:15)
[2020-06-16] MEDS: Docusate 100mg cap ORAL SCH ×3 (09:16→17:07)
[2020-06-16] MEDS: Aspirin EC 81mg tab ORAL SCH (09:16)
[2020-06-16] MEDS: Bethanechol 10mg Tab ORAL SCH ×3 (09:16→17:08)
[2020-06-16] MEDS: Phospha 250 Neutral tab ORAL SCH ×3 (09:16→17:07)
[2020-06-16] MEDS: Enoxaparin 40mg Inj SUBQ SCH (09:17)
[2020-06-16] MEDS: timoloL maleate 0.5% Op Soln 2.5ml BOTH EYES SCH ×3 (09:18→22:42)
--- NOTE | 2020-06-16 09:24 | Infectious Diseases Prog Note ---
Assessment/Plan 79yo F with: COVID+ Doing well on RA Normal WBC 06/11 COVID rapid positive CXR: Multifocal lung parenchymal opacities are better seen on the recent CT abdomen pelvis, new since prior CT from 03/16/2020. There is a hiatal hernia also better seen on the recent CT abdomen pelvis. R/o UTI Vaginal yeast infection, SP tx 06/11 UA+, UCx +yeast Cr 1.4 Abd pain x1 week, prompting pt to come to ED 06/11 CT A/P: Prominent bilateral groundglass opacities of the visualized thorax. Postsurgical clips are seen in the region of the second portion of the duodenum. High density localized to the first portion of the duodenum, image 39 series 3, is nonspecific and may represent focal blood products. Prominent soft tissue thickening is noted at the rectum near the anal verge. Stable soft tissue infiltrative changes are noted along the anterior superficial soft tissues. A nonspecific indeterminate right posterior perihepatic nodule measuring 0.6 cm is stable. HTN Plan: Cont empiric CTX #6/7 for UTI, on discharge can transition to cephalexin 500mg PO QID to complete rest of course (2 more days) Stop dex 6mg #5 per Pulm given pt satting well on RA As doing well on RA and UTI sx improving, ok to d/c home from ID standpoint on above PO abx. Ensure PCP f/u given COVID+ Needs COVID isolation through 06/21 Not candidate for remdesivir nor steroids given doing well on RA This hospital does not have access to convalescent plasma, and pt doing well on RA so not candidate for it anyways 06/11 & 06/15 SP fluconazole 150mg for vaginal yeast infection Monitor CBC/CMP Monitor resp status Monitor temp curve, hemodynamics D/w RN Thank you for this consult. [facility] will continue to follow. Subjective Allergies: Coded Allergies: CODEINE (Verified Allergy, Mild, Itching, 08/26/13) SULFA (SULFONAMIDE ANTIBIOTICS) (Verified Adverse Reaction, Mild, 08/26/13) VOMIT AF NAD on RA satting well Overall feeling better with less abd pain, no more urinary sx, just feeling weak but starting to work w/ PT Objective Last 24 Hour Vital Signs Date Time Temp Pulse Resp B/P (MAP) Pulse Ox O2 Delivery O2 Flow Rate FiO2 06/16/20 07:17 162/63 06/16/20 07:15 50 162/63 (96) 06/16/20 04:00 97.4 52 18 177/75 (109) 96 06/16/20 03:00 97.9 96 06/16/20 01:02 177/78 06/16/20 00:00 97.1 51 20 178/78 (111) 95 06/15/20 21:00 Room Air 06/15/20 20:00 97.9 56 18 177/81 (113) 96 06/15/20 16:00 97.8 95 20 142/75 (97) 100 06/15/20 12:00 97.8 55 17 142/56 (84) 100 06/15/20 11:00 97.0 56 17 152/62 (92) 100 Height (Feet): 5 Height (Inches): 8.00 Weight (Pounds): 200 Gen: NAD HEENT: NCAT Pulm: BL chest rise on RA, non-labored Abd: Obese, soft, mildly TTP in the lower quadrants, no rebound or guarding Ext: No c/c/e Skin: No visible rashes Neuro: Awake, alert, itneractive Laboratory Tests Test 06/15/20 11:29 06/15/20 19:48 06/16/20 05:40 06/16/20 06:20 POC Whole Blood Glucose 87 MG/DL (74-106) 301 MG/DL (74-106) H 91 MG/DL (74-106) Sodium Level 143 MMOL/L (136-145) Potassium Level 4.4 MMOL/L (3.5-5.1) Chloride Level 108 MMOL/L (98-107) H Carbon Dioxide Level 27 MMOL/L (21-32) Anion Gap 8 mmol/L (5-15) Blood Urea Nitrogen 15 mg/dL (7-18) Creatinine 0.9 MG/DL (0.55-1.30) Estimat Glomerular Filtration Rate > 60 mL/min (>60) Glucose Level 90 MG/DL (74-106) Calcium Level 8.7 MG/DL (8.5-10.1) Phosphorus Level 3.5 MG/DL (2.5-4.9) Magnesium Level 1.8 MG/DL (1.8-2.4) Total Bilirubin < 0.1 MG/DL (0.2-1.0) L Aspartate Amino Transf (AST/SGOT) 29 U/L (15-37) Alanine Aminotransferase (ALT/SGPT) 29 U/L (12-78) Alkaline Phosphatase 54 U/L (46-116) Total Protein 5.6 G/DL (6.4-8.2) L Albumin 2.2 G/DL (3.4-5.0) L Globulin 3.4 g/dL Vitamin D 25-Hydroxy Pending 25-Hydroxy Vitamin D2 Pending 25-Hydroxy Vitamin D3 Pending Current Medications Medications (Trade) Dose Ordered Sig/Hever Route PRN Reason Start Time Stop Time Status Last Admin Dose Admin Acetaminophen (Tylenol) 650 mg Q6H PRN ORAL Temp >100.5 06/11/20 10:45 07/11/20 10:44 Acetaminophen (Tylenol) 650 mg Q6H PRN ORAL Mild Pain (Pain Scale 1-3) 06/11/20 11:15 07/11/20 11:14 Acetaminophen/ Hydrocodone Bitart (Mcdougal 5/325) 1 tab Q6H PRN ORAL Moderate Pain (Pain Scale 4-6) 06/11/20 10:45 06/18/20 10:44 Albuterol Sulfate (Proventil MDI) 2 puff Q4H PRN INH Shortness of Breath 06/13/20 17:45 09/11/20 17:44 Amlodipine Besylate (Norvasc) 5 mg DAILY ORAL 06/16/20 09:00 07/16/20 08:59 Aspirin (Ecotrin) 81 mg DAILY ORAL 06/12/20 09:00 07/27/20 08:59 06/15/20 08:44 Bethanechol Chloride (Urecholine) 10 mg THREE TIMES A DAY ORAL 06/11/20 18:00 07/11/20 17:59 06/15/20 17:09 Brimonidine Tartrate (Alphagan) 1 drop Q8HR RIGHT EYE 06/11/20 22:00 09/09/20 21:59 06/16/20 06:07 Ceftriaxone Sodium 1 gm/ Dextrose 55 ml @ 110 mls/hr DAILY IVPB 06/12/20 09:00 06/19/20 08:59 06/15/20 08:44 Dexamethasone Sodium Phosphate (Decadron 4mg/ml vial) 6 mg DAILY IVP 06/12/20 17:30 06/21/20 09:01 06/15/20 08:44 Dextrose (Dextrose 50%) 25 ml Q30M PRN IV Hypoglycemia 06/11/20 10:45 09/09/20 10:44 Dextrose (Dextrose 50%) 50 ml Q30M PRN IV Hypoglycemia 06/11/20 10:45 09/09/20 10:44 Docusate Sodium (Colace) 100 mg THREE TIMES A DAY ORAL 06/11/20 13:00 07/11/20 12:59 06/15/20 17:08 Enoxaparin Sodium (Lovenox) 40 mg DAILY SUBQ 06/12/20 09:00 09/10/20 08:59 06/15/20 08:46 Folic Acid (Folate) 2 mg DAILY ORAL 06/14/20 11:00 07/14/20 10:59 06/15/20 08:44 Guaifenesin (Robitussin) 100 mg Q6H PRN ORAL For Cough 06/12/20 17:30 09/10/20 17:29 06/13/20 04:10 Hydralazine HCl (Apresoline) 50 mg Q6HR PRN ORAL For High Blood Pressure 06/16/20 00:45 09/14/20 00:44 06/16/20 07:17 Insulin Aspart (NovoLOG Mix 70/ 30) 50 units EVERY 12 HOURS SUBQ 06/11/20 21:00 09/09/20 20:59 06/15/20 21:36 Insulin Aspart (NovoLOG) BEFORE MEALS AND HS SUBQ 06/11/20 11:30 09/09/20 11:29 06/15/20 21:35 Morphine Sulfate (Morphine Sulfate) 4 mg Q4H PRN IVP Severe Pain (Pain Scale 7-10) 06/11/20 10:45 06/18/20 10:44 06/16/20 06:08 Ondansetron HCl (Zofran) 4 mg Q4H PRN IVP Nausea & Vomiting 06/11/20 10:45 07/11/20 10:44 Pantoprazole (Protonix) 40 mg EVERY 12 HOURS IVP 06/11/20 21:00 07/11/20 20:59 06/15/20 21:34 Phosphorus (Phospha 250 Neutral) 250 mg THREE TIMES A DAY ORAL 06/14/20 11:00 07/14/20 10:59 06/15/20 17:08 Sodium Chloride 1,000 ml @ 50 mls/hr Q20H IV 06/12/20 10:15 07/12/20 10:14 06/15/20 17:09 Timolol Maleate (timoloL maleate 0.5% Op Soln) 1 drop TWICE A DAY BOTH EYES 06/11/20 18:00 07/11/20 17:59 06/15/20 17:09 Milagro Ahuja M.D. Jun 16, 2020 09:24
--- NOTE | 2020-06-16 10:42 | Surgery Progress Note ---
Surgery Progress Note Subjective Symptoms: improved Additional Comments working with physical therapy no pain no n/v tolerating diet feels ready to go soon Objective Last 24 Hour Vital Signs Date Time Temp Pulse Resp B/P (MAP) Pulse Ox O2 Delivery O2 Flow Rate FiO2 06/16/20 09:16 52 184/73 06/16/20 09:00 Room Air 06/16/20 08:00 97.2 52 18 184/73 (110) 94 06/16/20 07:17 162/63 06/16/20 07:15 50 162/63 (96) 06/16/20 04:00 97.4 52 18 177/75 (109) 96 06/16/20 03:00 97.9 96 06/16/20 01:02 177/78 06/16/20 00:00 97.1 51 20 178/78 (111) 95 06/15/20 21:00 Room Air 06/15/20 20:00 97.9 56 18 177/81 (113) 96 06/15/20 16:00 97.8 95 20 142/75 (97) 100 06/15/20 12:00 97.8 55 17 142/56 (84) 100 06/15/20 11:00 97.0 56 17 152/62 (92) 100 I&O Intake and Output 06/15/20 06/16/20 19:00 07:00 Intake Total 1330 ml 750 ml Balance 1330 ml 750 ml Intake Oral 720 ml 200 ml IV Total 610 ml 550 ml # Voids 2 2 Cardiovascular: RSR Respiratory: decreased breath sounds Abdomen: soft, flat, non-tender, present bowel sounds, non-distended Extremities: no edema, no tenderness, no cyanosis Laboratory Tests Test 06/15/20 11:29 06/15/20 19:48 06/16/20 05:40 06/16/20 06:20 POC Whole Blood Glucose 87 MG/DL (74-106) 301 MG/DL (74-106) H 91 MG/DL (74-106) Sodium Level 143 MMOL/L (136-145) Potassium Level 4.4 MMOL/L (3.5-5.1) Chloride Level 108 MMOL/L (98-107) H Carbon Dioxide Level 27 MMOL/L (21-32) Anion Gap 8 mmol/L (5-15) Blood Urea Nitrogen 15 mg/dL (7-18) Creatinine 0.9 MG/DL (0.55-1.30) Estimat Glomerular Filtration Rate > 60 mL/min (>60) Glucose Level 90 MG/DL (74-106) Calcium Level 8.7 MG/DL (8.5-10.1) Phosphorus Level 3.5 MG/DL (2.5-4.9) Magnesium Level 1.8 MG/DL (1.8-2.4) Total Bilirubin < 0.1 MG/DL (0.2-1.0) L Aspartate Amino Transf (AST/SGOT) 29 U/L (15-37) Alanine Aminotransferase (ALT/SGPT) 29 U/L (12-78) Alkaline Phosphatase 54 U/L (46-116) Total Protein 5.6 G/DL (6.4-8.2) L Albumin 2.2 G/DL (3.4-5.0) L Globulin 3.4 g/dL Vitamin D 25-Hydroxy Pending 25-Hydroxy Vitamin D2 Pending 25-Hydroxy Vitamin D3 Pending Test 06/16/20 09:32 POC Whole Blood Glucose Pending Plan Problems: (1) Constipation (2) Diabetes mellitus (3) Abdominal pain Assessment & Plan: 79 female abdominal pain cramping generalized in nature. CT reviewed large hiatal hernia postsurgical changes and clips identified around the esophagus GE junction potential prior intervention for hernia. Stomach and GI otherwise noted. Secondary to the duodenum noted. Abdominal exam fairly benign labs noted. Nonobstructed. Potentially constipated. Initiate bowel regimen. Okay for diet. Will follow with serial abdominal exams. Thank you let me participate patient's care Redemonstration of large hiatal hernia, possibly paraesophageal in nature. Correlate with dedicated chest imaging and/or esophagram for better characterization. Postsurgical clips are seen adjacent to the distal esophagus and at the GE junction, correlate with surgical history. Prominent bilateral groundglass opacities of the visualized thorax are noted. Findings may represent multifocal infection. Typical and atypical etiologies can be considered. Aspiration may also be an etiology of these findings. There is no pleural effusion of the visualized lung bases. Coronary artery calcification is noted. Solid organ evaluation is limited due to noncontrast technique. Patient is status post cholecystectomy. The unenhanced liver is grossly unremarkable. A stable 0.6 cm right posterior perihepatic nodule is identified in image 38 series 3. The pancreas demonstrates diffuse parenchymal atrophy, without pancreatic ductal dilatation. The spleen is unremarkable. There is bilateral adrenal gland thickening and nodularity with probable 1.5 cm right adrenal adenoma. Correlation with abdominal MRI is recommended for definitive characterization. There is no hydronephrosis or nephrolithiasis of the kidneys. Evaluation of the bowel is limited due to lack of oral contrast. Large hiatal hernia, possibly paraesophageal in nature as described above. Stomach is otherwise under distended, limiting evaluation. Postsurgical clips are seen in the region of the second portion of the duodenum. High density localized to the first portion of the duodenum, image 39 series 3, is nonspecific and may represent focal blood products. Consider correlation with the EGD for better characterization. There is no small bowel obstruction. The appendix is not inflamed. There is mild stool burden of the colon which limits evaluation of the colonic mucosa. Prominent soft tissue thickening is noted at the rectum near the anal verge. Correlation with colonoscopy is recommended to exclude neoplasm in this location, versus other proctitis. There is no ascites, free air, or loculated fluid collection. Mild haziness of the small bowel mesentery stable. Small volume nodes are identified, particularly along the pelvic sidewalls, left greater than right. Urinary bladder is relatively underdistended, living evaluation. Tiny nodular focus along the anterior superior margin of the urinary bladder, image 121 series 3, is unchanged, likely related to urachal remnant. Patient is status post hysterectomy. There is no aneurysm of the abdominal aorta. Moderate to severe atheromatous changes are identified. Stable soft tissue infiltrative changes are noted along the anterior superficial soft tissues. Correlate for injection. Cellulitis is considered less likely given chronicity. Degenerative changes of the visualized thoracolumbar spine are identified. There is redemonstration of grade 1 anterolisthesis of L3 on L4 and severe height loss at L4-L5 levels. Correlate with spinal MRI as clinically warranted. IMPRESSION: Prominent bilateral groundglass opacities of the visualized thorax. Findings may represent multifocal infection. Typical and atypical etiologies can be considered, include COVID pneumonia. Correlate with dedicated CT of the chest for better characterization. Follow to resolution with repeat chest CT in 6 weeks. Aspiration may also be an etiology of these findings as well, given the large hiatal hernia, possibly paraesophageal in morphology. Postsurgical clips are seen in the region of the second portion of the duodenum. High density localized to the first portion of the duodenum, image 39 series 3, is nonspecific and may represent focal blood products. Consider correlation with the EGD for better characterization. Correlate for signs and symptoms of GI bleeding. Prominent soft tissue thickening is noted at the rectum near the anal verge. Correlation with colonoscopy is recommended to exclude neoplasm in this location, versus other proctitis. Stable soft tissue infiltrative changes are noted along the anterior superficial soft tissues. Correlate for injection. Soft tissue cellulitis is considered less likely. Clinical correlation is recommended. A nonspecific indeterminate right posterior perihepatic nodule measuring 0.6 cm is stable. Follow-up CT abdomen pelvis is recommended in 6 months to evaluate for stability of these findings. 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
--- NOTE | 2020-06-16 11:15 | NUR ---
NURSE NOTES: Seen and evaluated by and Cleared to discharge ID standpoint. Order noted and carried out.
--- NOTE | 2020-06-16 12:59 | Pulmonology Progress Note ---
Subjective ROS Limited/Unobtainable: No Allergies: Coded Allergies: CODEINE (Verified Allergy, Mild, Itching, 08/26/13) SULFA (SULFONAMIDE ANTIBIOTICS) (Verified Adverse Reaction, Mild, 08/26/13) VOMIT Subjective AFVSS on RA No F/C, no cough, no SOB, no wheezing, no CP Abx pain better no NVDC Objective Last 24 Hour Vital Signs Date Time Temp Pulse Resp B/P (MAP) Pulse Ox O2 Delivery O2 Flow Rate FiO2 06/16/20 12:00 97.6 50 20 165/69 (101) 96 06/16/20 09:16 52 184/73 06/16/20 09:00 Room Air 06/16/20 08:00 97.2 52 18 184/73 (110) 94 06/16/20 07:17 162/63 06/16/20 07:15 50 162/63 (96) 06/16/20 04:00 97.4 52 18 177/75 (109) 96 06/16/20 03:00 97.9 96 06/16/20 01:02 177/78 06/16/20 00:00 97.1 51 20 178/78 (111) 95 06/15/20 21:00 Room Air 06/15/20 20:00 97.9 56 18 177/81 (113) 96 06/15/20 16:00 97.8 95 20 142/75 (97) 100 Intake and Output 06/15/20 06/16/20 19:00 07:00 Intake Total 1330 ml 750 ml Balance 1330 ml 750 ml Intake Oral 720 ml 200 ml IV Total 610 ml 550 ml # Voids 2 2 General Appearance: no acute distress HEENT: normocephalic, atraumatic, anicteric, mucous membranes moist Respiratory: lungs clear, no respiratory distress, no accessory muscle use Cardiovascular: normal rate, regular rhythm Abdomen: soft, non tender, non distended Extremities: no edema, pedal pulses normal Neurologic: no motor/sensory deficits, alert, responsive Musculoskeletal: normal muscle bulk Laboratory Tests 06/15/20 19:48: POC Whole Blood Glucose 301H 06/16/20 05:40: POC Whole Blood Glucose 91 06/16/20 06:20: Sodium Level 143, Potassium Level 4.4, Chloride Level 108H, Carbon Dioxide Level 27, Anion Gap 8, Blood Urea Nitrogen 15, Creatinine 0.9, Estimat Glomerular Fi ltration Rate > 60, Glucose Level 90, Calcium Level 8.7, Phosphorus Level 3.5, Magnesium Level 1.8, Total Bilirubin < 0.1L, Aspartate Amino Transf (AST/SGOT) 29, Alanine Aminotransferase (ALT/SGPT) 29, Alkaline Phosphatase 54, Total Protein 5.6L, Albumin 2.2L, Globulin 3.4, Vitamin D 25-Hydroxy [Pending], 25- Hydroxy Vitamin D2 [Pending], 25-Hydroxy Vitamin D3 [Pending] 06/16/20 09:32: POC Whole Blood Glucose [Pending] 06/16/20 11:16: POC Whole Blood Glucose 139H 06/16/20 12:13: POC Whole Blood Glucose [Pending] Current Medications Medications (Trade) Dose Ordered Sig/Hever Route PRN Reason Start Time Stop Time Status Last Admin Dose Admin Acetaminophen (Tylenol) 650 mg Q6H PRN ORAL Temp >100.5 06/11/20 10:45 07/11/20 10:44 Acetaminophen (Tylenol) 650 mg Q6H PRN ORAL Mild Pain (Pain Scale 1-3) 06/11/20 11:15 07/11/20 11:14 Acetaminophen/ Hydrocodone Bitart ([place] 5/325) 1 tab Q6H PRN ORAL Moderate Pain (Pain Scale 4-6) 06/11/20 10:45 06/18/20 10:44 Albuterol Sulfate (Proventil MDI) 2 puff Q4H PRN INH Shortness of Breath 06/13/20 17:45 09/11/20 17:44 Amlodipine Besylate (Norvasc) 5 mg DAILY ORAL 06/16/20 09:00 07/16/20 08:59 06/16/20 09:16 Aspirin (Ecotrin) 81 mg DAILY ORAL 06/12/20 09:00 07/27/20 08:59 06/16/20 09:16 Bethanechol Chloride (Urecholine) 10 mg THREE TIMES A DAY ORAL 06/11/20 18:00 07/11/20 17:59 06/16/20 09:16 Brimonidine Tartrate (Alphagan) 1 drop Q8HR RIGHT EYE 06/11/20 22:00 09/09/20 21:59 06/16/20 06:07 Ceftriaxone Sodium 1 gm/ Dextrose 55 ml @ 110 mls/hr DAILY IVPB 06/12/20 09:00 06/19/20 08:59 06/16/20 09:15 Dextrose (Dextrose 50%) 25 ml Q30M PRN IV Hypoglycemia 06/11/20 10:45 09/09/20 10:44 Dextrose (Dextrose 50%) 50 ml Q30M PRN IV Hypoglycemia 06/11/20 10:45 09/09/20 10:44 Docusate Sodium (Colace) 100 mg THREE TIMES A DAY ORAL 06/11/20 13:00 07/11/20 12:59 06/16/20 09:16 Enoxaparin Sodium (Lovenox) 40 mg DAILY SUBQ 06/12/20 09:00 09/10/20 08:59 06/16/20 09:17 Folic Acid (Folate) 2 mg DAILY ORAL 06/14/20 11:00 07/14/20 10:59 06/16/20 09:16 Guaifenesin (Robitussin) 100 mg Q6H PRN ORAL For Cough 06/12/20 17:30 09/10/20 17:29 06/13/20 04:10 Hydralazine HCl (Apresoline) 50 mg Q6HR PRN ORAL For High Blood Pressure 06/16/20 00:45 09/14/20 00:44 06/16/20 07:17 Insulin Aspart (NovoLOG Mix 70/ 30) 50 units EVERY 12 HOURS SUBQ 06/11/20 21:00 09/09/20 20:59 06/16/20 09:39 Insulin Aspart (NovoLOG) BEFORE MEALS AND HS SUBQ 06/11/20 11:30 09/09/20 11:29 06/15/20 21:35 Morphine Sulfate (Morphine Sulfate) 4 mg Q4H PRN IVP Severe Pain (Pain Scale 7-10) 06/11/20 10:45 06/18/20 10:44 06/16/20 06:08 Ondansetron HCl (Zofran) 4 mg Q4H PRN IVP Nausea & Vomiting 06/11/20 10:45 07/11/20 10:44 Pantoprazole (Protonix) 40 mg EVERY 12 HOURS IVP 06/11/20 21:00 07/11/20 20:59 06/16/20 09:15 Phosphorus (Phospha 250 Neutral) 250 mg THREE TIMES A DAY ORAL 06/14/20 11:00 07/14/20 10:59 06/16/20 09:16 Sodium Chloride 1,000 ml @ 50 mls/hr Q20H IV 06/12/20 10:15 07/12/20 10:14 06/15/20 17:09 Timolol Maleate (timoloL maleate 0.5% Op Soln) 1 drop TWICE A DAY BOTH EYES 06/11/20 18:00 07/11/20 17:59 06/16/20 09:18 Assessment/Plan Problems: (1) Elevated d-dimer Assessment & Plan: S/P neg DUPLEX (2) Hypoxemia Assessment & Plan: RESOLVED (3) UTI (urinary tract infection) (4) Pneumonia due to COVID-19 virus (5) Abdominal pain (6) Diabetes mellitus type II, uncontrolled (7) Hypertension Assessment/Plan Optimize pulmonary hygiene/mobilize as tolerated PRN O2 D/C DEX D4 as oxygenation stable REM not given 2/2 stable oxygenation Abx for UTI per ID Monitor inflammatory markers Monitor volumes and renal functios DVT Px: LMWH --> would D/C home on Xarelto 10 mg PO qDaily to complete 30 days FC Bradley Ulloa MD Jun 16, 2020 12:59
--- NOTE | 2020-06-16 13:00 | NUR ---
P.T Note: P.T evaluation completed and tx initiated s/p fall. Please refer to P.T evaluation for current functional status. Pt is limited by generalized weakness and poor activity tolerance as evidenced by quick onset of fatigue requiring intermittent rest breaks in between functional mobility tasks however no visible SOB. Pt is independent with bed mobilities and SBA/CGA x 1 for transfer activities. Pt was able standing using the FWW but too weak and fatigue to ambulate ( was only able to ambulate 10 ft). Vitals were stable all through out. Pt will benefit from skilled P.T service to improve strength and activity tolerance to increase mobility independence and safety. Recommend home P.T follow up at [facility].
[2020-06-16] MEDS ORDERED: HydrALAZINE 25mg tab ORAL PRN (13:30)
--- NOTE | 2020-06-16 13:30 | Nephrology Progress Note ---
Assessment/Plan Problem List: (1) MITZI (acute kidney injury) (2) Diabetes mellitus type II, uncontrolled (3) Hypertension (4) Pneumonia due to COVID-19 virus Assessment Renal failure, most likely acute on chronic Abdominal pain, etiology to be determined Pneumonia due to COVID-19 19 virus Hypertension Hyperglycemia Plan June 16: Labs reviewed. Renal parameters stable. Blood pressure under control. Blood pressure medication adjusted. Monitor bradycardia. Per orders. June 15: Labs reviewed. Renal parameters stable. Continue per consultants. Medication list reviewed. June 14: Labs reviewed. Renal parameters stable. Low phosphorus addressed. Folic acid supplement given. Continue per consultants. June 13: Renal parameters are stable. Continue to monitor electrolytes. Medication list reviewed. Anemia work-up initiated. June 12: Today's labs pending. Normal saline 50 cc an hour started. Continue per call center consultant. Further comments after checking the labs. Patient started on dexamethasone Lovenox and antibiotics We will monitor renal parameters and blood sugar IV Protonix given Anemia work-up Urine analysis and urine studies Avoid nephrotoxic's Per orders Subjective ROS Limited/Unobtainable: No Constitutional: Reports: malaise Objective Objective Last 24 Hour Vital Signs Date Time Temp Pulse Resp B/P (MAP) Pulse Ox O2 Delivery O2 Flow Rate FiO2 06/16/20 12:00 97.6 50 20 165/69 (101) 96 06/16/20 09:16 52 184/73 06/16/20 09:00 Room Air 06/16/20 08:00 97.2 52 18 184/73 (110) 94 06/16/20 07:17 162/63 06/16/20 07:15 50 162/63 (96) 06/16/20 04:00 97.4 52 18 177/75 (109) 96 06/16/20 03:00 97.9 96 06/16/20 01:02 177/78 06/16/20 00:00 97.1 51 20 178/78 (111) 95 06/15/20 21:00 Room Air 06/15/20 20:00 97.9 56 18 177/81 (113) 96 06/15/20 16:00 97.8 95 20 142/75 (97) 100 Intake and Output 06/15/20 06/16/20 19:00 07:00 Intake Total 1330 ml 750 ml Balance 1330 ml 750 ml Intake Oral 720 ml 200 ml IV Total 610 ml 550 ml # Voids 2 2 Current Medications Medications (Trade) Dose Ordered Sig/Hever Route PRN Reason Start Time Stop Time Status Last Admin Dose Admin Acetaminophen (Tylenol) 650 mg Q6H PRN ORAL Temp >100.5 06/11/20 10:45 07/11/20 10:44 Acetaminophen (Tylenol) 650 mg Q6H PRN ORAL Mild Pain (Pain Scale 1-3) 06/11/20 11:15 07/11/20 11:14 Acetaminophen/ Hydrocodone Bitart ([place] 5/325) 1 tab Q6H PRN ORAL Moderate Pain (Pain Scale 4-6) 06/11/20 10:45 06/18/20 10:44 Albuterol Sulfate (Proventil MDI) 2 puff Q4H PRN INH Shortness of Breath 06/13/20 17:45 09/11/20 17:44 Amlodipine Besylate (Norvasc) 5 mg DAILY ORAL 06/16/20 09:00 07/16/20 08:59 06/16/20 09:16 Aspirin (Ecotrin) 81 mg DAILY ORAL 06/12/20 09:00 07/27/20 08:59 06/16/20 09:16 Bethanechol Chloride (Urecholine) 10 mg THREE TIMES A DAY ORAL 06/11/20 18:00 07/11/20 17:59 06/16/20 09:16 Brimonidine Tartrate (Alphagan) 1 drop Q8HR RIGHT EYE 06/11/20 22:00 09/09/20 21:59 06/16/20 06:07 Ceftriaxone Sodium 1 gm/ Dextrose 55 ml @ 110 mls/hr DAILY IVPB 06/12/20 09:00 06/19/20 08:59 06/16/20 09:15 Dextrose (Dextrose 50%) 25 ml Q30M PRN IV Hypoglycemia 06/11/20 10:45 09/09/20 10:44 Dextrose (Dextrose 50%) 50 ml Q30M PRN IV Hypoglycemia 06/11/20 10:45 09/09/20 10:44 Docusate Sodium (Colace) 100 mg THREE TIMES A DAY ORAL 06/11/20 13:00 07/11/20 12:59 06/16/20 09:16 Enoxaparin Sodium (Lovenox) 40 mg DAILY SUBQ 06/12/20 09:00 09/10/20 08:59 06/16/20 09:17 Folic Acid (Folate) 2 mg DAILY ORAL 06/14/20 11:00 07/14/20 10:59 06/16/20 09:16 Guaifenesin (Robitussin) 100 mg Q6H PRN ORAL For Cough 06/12/20 17:30 09/10/20 17:29 06/13/20 04:10 Hydralazine HCl (Apresoline) 50 mg Q6HR PRN ORAL For High Blood Pressure 06/16/20 00:45 09/14/20 00:44 06/16/20 07:17 Insulin Aspart (NovoLOG Mix 70/ 30) 50 units EVERY 12 HOURS SUBQ 06/11/20 21:00 09/09/20 20:59 06/16/20 09:39 Insulin Aspart (NovoLOG) BEFORE MEALS AND HS SUBQ 06/11/20 11:30 09/09/20 11:29 06/15/20 21:35 Morphine Sulfate (Morphine Sulfate) 4 mg Q4H PRN IVP Severe Pain (Pain Scale 7-10) 06/11/20 10:45 06/18/20 10:44 06/16/20 06:08 Ondansetron HCl (Zofran) 4 mg Q4H PRN IVP Nausea & Vomiting 06/11/20 10:45 07/11/20 10:44 Pantoprazole (Protonix) 40 mg EVERY 12 HOURS IVP 06/11/20 21:00 07/11/20 20:59 06/16/20 09:15 Phosphorus (Phospha 250 Neutral) 250 mg THREE TIMES A DAY ORAL 06/14/20 11:00 07/14/20 10:59 06/16/20 09:16 Sodium Chloride 1,000 ml @ 50 mls/hr Q20H IV 06/12/20 10:15 07/12/20 10:14 06/15/20 17:09 Timolol Maleate (timoloL maleate 0.5% Op Soln) 1 drop TWICE A DAY BOTH EYES 06/11/20 18:00 07/11/20 17:59 06/16/20 09:18 Laboratory Tests 06/15/20 19:48: POC Whole Blood Glucose 301H 06/16/20 05:40: POC Whole Blood Glucose 91 06/16/20 06:20: Sodium Level 143, Potassium Level 4.4, Chloride Level 108H, Carbon Dioxide Level 27, Anion Gap 8, Blood Urea Nitrogen 15, Creatinine 0.9, Estimat Glomerular Filtration Rate > 60, Glucose Level 90, Calcium Level 8.7, Phosphorus Level 3.5, Magnesium Level 1.8, Total Bilirubin < 0.1L, Aspartate Amino Transf (AST/SGOT) 29, Alanine Aminotransferase (ALT/SGPT) 29, Alkaline Phosphatase 54, Total Protein 5.6L, Albumin 2.2L, Globulin 3.4, Vitamin D 25-Hydroxy [Pending], 25- Hydroxy Vitamin D2 [Pending], 25-Hydroxy Vitamin D3 [Pending] 06/16/20 09:32: POC Whole Blood Glucose [Pending] 06/16/20 11:16: POC Whole Blood Glucose 139H 06/16/20 12:13: POC Whole Blood Glucose [Pending] Height (Feet): 5 Height (Inches): 8.00 Weight (Pounds): 200 General Appearance: no apparent distress Cardiovascular: bradycardia Respiratory/Chest: decreased breath sounds Abdomen: distended Melchor Reeves MD Jun 16, 2020 13:30
--- NOTE | 2020-06-16 13:33 | NUR ---
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 UTI. DM. 97.6 50 20 165/69 96% ON RA WBC 4.3 IS: PHOSPHORUS PO TID DECADRON IV QD OVF NaCL @ 50 ML/HR ROCEPHIN IV QD LOVENOX SQ QD PROTONIX IV Q12 MED SURG STATUS DC PLANNING HOME WITH HOME HEALTH (PROGRESSIVE 1999)
[2020-06-16] MEDS: HydrALAZINE 50mg tab ORAL SCH ×2 (13:41→22:41)
--- NOTE | 2020-06-16 17:26 | Internal Med Progress Note ---
Subjective Physician Name Emre Trejo Attending Physician Emre Trejo MD Current Medications Medications (Trade) Dose Ordered Sig/Hever Route PRN Reason Start Time Stop Time Status Last Admin Dose Admin Acetaminophen (Tylenol) 650 mg Q6H PRN ORAL Temp >100.5 06/11/20 10:45 07/11/20 10:44 Acetaminophen (Tylenol) 650 mg Q6H PRN ORAL Mild Pain (Pain Scale 1-3) 06/11/20 11:15 07/11/20 11:14 Acetaminophen/ Hydrocodone Bitart ([place] 5/325) 1 tab Q6H PRN ORAL Moderate Pain (Pain Scale 4-6) 06/11/20 10:45 06/18/20 10:44 Albuterol Sulfate (Proventil MDI) 2 puff Q4H PRN INH Shortness of Breath 06/13/20 17:45 09/11/20 17:44 Aspirin (Ecotrin) 81 mg DAILY ORAL 06/12/20 09:00 07/27/20 08:59 06/16/20 09:16 Bethanechol Chloride (Urecholine) 10 mg THREE TIMES A DAY ORAL 06/11/20 18:00 07/11/20 17:59 06/16/20 17:08 Brimonidine Tartrate (Alphagan) 1 drop Q8HR RIGHT EYE 06/11/20 22:00 09/09/20 21:59 06/16/20 13:43 Ceftriaxone Sodium 1 gm/ Dextrose 55 ml @ 110 mls/hr DAILY IVPB 06/12/20 09:00 06/17/20 23:59 06/16/20 09:15 Dextrose (Dextrose 50%) 25 ml Q30M PRN IV Hypoglycemia 06/11/20 10:45 09/09/20 10:44 Dextrose (Dextrose 50%) 50 ml Q30M PRN IV Hypoglycemia 06/11/20 10:45 09/09/20 10:44 Docusate Sodium (Colace) 100 mg THREE TIMES A DAY ORAL 06/11/20 13:00 07/11/20 12:59 06/16/20 17:07 Enoxaparin Sodium (Lovenox) 40 mg DAILY SUBQ 06/12/20 09:00 09/10/20 08:59 06/16/20 09:17 Folic Acid (Folate) 2 mg DAILY ORAL 06/14/20 11:00 07/14/20 10:59 06/16/20 09:16 Guaifenesin (Robitussin) 100 mg Q6H PRN ORAL For Cough 06/12/20 17:30 09/10/20 17:29 06/13/20 04:10 Hydralazine HCl (Apresoline) 25 mg Q4H PRN ORAL BP over 160 systolic 06/16/20 13:30 09/14/20 13:29 Hydralazine HCl (Apresoline) 50 mg Q8HR ORAL 06/16/20 14:00 09/14/20 00:44 06/16/20 13:41 Insulin Aspart (NovoLOG Mix 70/ 30) 50 units EVERY 12 HOURS SUBQ 06/11/20 21:00 09/09/20 20:59 06/16/20 09:39 Insulin Aspart (NovoLOG) BEFORE MEALS AND HS SUBQ 06/11/20 11:30 09/09/20 11:29 06/16/20 17:09 Morphine Sulfate (Morphine Sulfate) 4 mg Q4H PRN IVP Severe Pain (Pain Scale 7-10) 06/11/20 10:45 06/18/20 10:44 06/16/20 06:08 Nifedipine (Procardia XL) 30 mg DAILY ORAL 06/16/20 13:30 07/16/20 13:29 06/16/20 13:51 Ondansetron HCl (Zofran) 4 mg Q4H PRN IVP Nausea & Vomiting 06/11/20 10:45 07/11/20 10:44 Pantoprazole (Protonix) 40 mg EVERY 12 HOURS ORAL 06/16/20 21:00 07/16/20 20:59 Phosphorus (Phospha 250 Neutral) 250 mg THREE TIMES A DAY ORAL 06/14/20 11:00 07/14/20 10:59 06/16/20 17:07 Sodium Chloride 1,000 ml @ 50 mls/hr Q20H IV 06/12/20 10:15 07/12/20 10:14 06/16/20 13:45 Timolol Maleate (timoloL maleate 0.5% Op Soln) 1 drop TWICE A DAY BOTH EYES 06/11/20 18:00 07/11/20 17:59 06/16/20 17:08 Allergies: Coded Allergies: CODEINE (Verified Allergy, Mild, Itching, 08/26/13) SULFA (SULFONAMIDE ANTIBIOTICS) (Verified Adverse Reaction, Mild, 08/26/13) VOMIT Objective Last Vital Signs Date Time Temp Pulse Resp B/P (MAP) Pulse Ox O2 Delivery O2 Flow Rate FiO2 06/16/20 13:51 60 165/69 06/16/20 12:00 97.6 20 96 06/16/20 09:00 Room Air Laboratory Tests Test 06/15/20 19:48 06/16/20 05:40 06/16/20 06:20 06/16/20 09:32 POC Whole Blood Glucose 301 MG/DL (74-106) H 91 MG/DL (74-106) Pending Sodium Level 143 MMOL/L (136-145) Potassium Level 4.4 MMOL/L (3.5-5.1) Chloride Level 108 MMOL/L (98-107) H Carbon Dioxide Level 27 MMOL/L (21-32) Anion Gap 8 mmol/L (5-15) Blood Urea Nitrogen 15 mg/dL (7-18) Creatinine 0.9 MG/DL (0.55-1.30) Estimat Glomerular Filtration Rate > 60 mL/min (>60) Glucose Level 90 MG/DL (74-106) Calcium Level 8.7 MG/DL (8.5-10.1) Phosphorus Level 3.5 MG/DL (2.5-4.9) Magnesium Level 1.8 MG/DL (1.8-2.4) Total Bilirubin < 0.1 MG/DL (0.2-1.0) L Aspartate Amino Transf (AST/SGOT) 29 U/L (15-37) Alanine Aminotransferase (ALT/SGPT) 29 U/L (12-78) Alkaline Phosphatase 54 U/L (46-116) Total Protein 5.6 G/DL (6.4-8.2) L Albumin 2.2 G/DL (3.4-5.0) L Globulin 3.4 g/dL Vitamin D 25-Hydroxy Pending 25-Hydroxy Vitamin D2 Pending 25-Hydroxy Vitamin D3 Pending Test 06/16/20 11:16 06/16/20 12:13 06/16/20 17:07 POC Whole Blood Glucose 139 MG/DL (74-106) H Pending Pending Intake and Output 06/15/20 06/16/20 19:00 07:00 Intake Total 1330 ml 750 ml Balance 1330 ml 750 ml Intake Oral 720 ml 200 ml IV Total 610 ml 550 ml # Voids 2 2 Emre Trejo MD Jun 16, 2020 17:26
--- NOTE | 2020-06-16 19:10 | Internal Med Progress Note ---
Subjective Physician Name Emre Trejo Attending Physician Emre Trejo MD Current Medications Medications (Trade) Dose Ordered Sig/Hever Route PRN Reason Start Time Stop Time Status Last Admin Dose Admin Acetaminophen (Tylenol) 650 mg Q6H PRN ORAL Temp >100.5 06/11/20 10:45 07/11/20 10:44 Acetaminophen (Tylenol) 650 mg Q6H PRN ORAL Mild Pain (Pain Scale 1-3) 06/11/20 11:15 07/11/20 11:14 Acetaminophen/ Hydrocodone Bitart ([place] 5/325) 1 tab Q6H PRN ORAL Moderate Pain (Pain Scale 4-6) 06/11/20 10:45 06/18/20 10:44 Albuterol Sulfate (Proventil MDI) 2 puff Q4H PRN INH Shortness of Breath 06/13/20 17:45 09/11/20 17:44 Aspirin (Ecotrin) 81 mg DAILY ORAL 06/12/20 09:00 07/27/20 08:59 06/16/20 09:16 Bethanechol Chloride (Urecholine) 10 mg THREE TIMES A DAY ORAL 06/11/20 18:00 07/11/20 17:59 06/16/20 17:08 Brimonidine Tartrate (Alphagan) 1 drop Q8HR RIGHT EYE 06/11/20 22:00 09/09/20 21:59 06/16/20 13:43 Ceftriaxone Sodium 1 gm/ Dextrose 55 ml @ 110 mls/hr DAILY IVPB 06/12/20 09:00 06/17/20 23:59 06/16/20 09:15 Dextrose (Dextrose 50%) 25 ml Q30M PRN IV Hypoglycemia 06/11/20 10:45 09/09/20 10:44 Dextrose (Dextrose 50%) 50 ml Q30M PRN IV Hypoglycemia 06/11/20 10:45 09/09/20 10:44 Docusate Sodium (Colace) 100 mg THREE TIMES A DAY ORAL 06/11/20 13:00 07/11/20 12:59 06/16/20 17:07 Enoxaparin Sodium (Lovenox) 40 mg DAILY SUBQ 06/12/20 09:00 09/10/20 08:59 06/16/20 09:17 Folic Acid (Folate) 2 mg DAILY ORAL 06/14/20 11:00 07/14/20 10:59 06/16/20 09:16 Guaifenesin (Robitussin) 100 mg Q6H PRN ORAL For Cough 06/12/20 17:30 09/10/20 17:29 06/13/20 04:10 Hydralazine HCl (Apresoline) 25 mg Q4H PRN ORAL BP over 160 systolic 06/16/20 13:30 09/14/20 13:29 Hydralazine HCl (Apresoline) 50 mg Q8HR ORAL 06/16/20 14:00 09/14/20 00:44 06/16/20 13:41 Insulin Aspart (NovoLOG Mix 70/ 30) 50 units EVERY 12 HOURS SUBQ 06/11/20 21:00 09/09/20 20:59 06/16/20 09:39 Insulin Aspart (NovoLOG) BEFORE MEALS AND HS SUBQ 06/11/20 11:30 09/09/20 11:29 06/16/20 17:09 Morphine Sulfate (Morphine Sulfate) 4 mg Q4H PRN IVP Severe Pain (Pain Scale 7-10) 06/11/20 10:45 06/18/20 10:44 06/16/20 06:08 Nifedipine (Procardia XL) 30 mg DAILY ORAL 06/16/20 13:30 07/16/20 13:29 06/16/20 13:51 Ondansetron HCl (Zofran) 4 mg Q4H PRN IVP Nausea & Vomiting 06/11/20 10:45 07/11/20 10:44 Pantoprazole (Protonix) 40 mg EVERY 12 HOURS ORAL 06/16/20 21:00 07/16/20 20:59 Phosphorus (Phospha 250 Neutral) 250 mg THREE TIMES A DAY ORAL 06/14/20 11:00 07/14/20 10:59 06/16/20 17:07 Sodium Chloride 1,000 ml @ 50 mls/hr Q20H IV 06/12/20 10:15 07/12/20 10:14 06/16/20 13:45 Timolol Maleate (timoloL maleate 0.5% Op Soln) 1 drop TWICE A DAY BOTH EYES 06/11/20 18:00 07/11/20 17:59 06/16/20 17:08 Allergies: Coded Allergies: CODEINE (Verified Allergy, Mild, Itching, 08/26/13) SULFA (SULFONAMIDE ANTIBIOTICS) (Verified Adverse Reaction, Mild, 08/26/13) VOMIT Subjective awake, alert, responsive, in room air, feeling very tired and lack of energy.no acute distress, sitting up on chair, NAD.. Objective Last Vital Signs Date Time Temp Pulse Resp B/P (MAP) Pulse Ox O2 Delivery O2 Flow Rate FiO2 06/16/20 17:30 Room Air 06/16/20 16:00 97.9 58 20 141/64 (89) 96 Laboratory Tests Test 06/15/20 19:48 06/16/20 05:40 06/16/20 06:20 06/16/20 09:32 POC Whole Blood Glucose 301 MG/DL (74-106) H 91 MG/DL (74-106) Pending Sodium Level 143 MMOL/L (136-145) Potassium Level 4.4 MMOL/L (3.5-5.1) Chloride Level 108 MMOL/L (98-107) H Carbon Dioxide Level 27 MMOL/L (21-32) Anion Gap 8 mmol/L (5-15) Blood Urea Nitrogen 15 mg/dL (7-18) Creatinine 0.9 MG/DL (0.55-1.30) Estimat Glomerular Filtration Rate > 60 mL/min (>60) Glucose Level 90 MG/DL (74-106) Calcium Level 8.7 MG/DL (8.5-10.1) Phosphorus Level 3.5 MG/DL (2.5-4.9) Magnesium Level 1.8 MG/DL (1.8-2.4) Total Bilirubin < 0.1 MG/DL (0.2-1.0) L Aspartate Amino Transf (AST/SGOT) 29 U/L (15-37) Alanine Aminotransferase (ALT/SGPT) 29 U/L (12-78) Alkaline Phosphatase 54 U/L (46-116) Total Protein 5.6 G/DL (6.4-8.2) L Albumin 2.2 G/DL (3.4-5.0) L Globulin 3.4 g/dL Vitamin D 25-Hydroxy Pending 25-Hydroxy Vitamin D2 Pending 25-Hydroxy Vitamin D3 Pending Test 06/16/20 11:16 06/16/20 12:13 06/16/20 17:07 POC Whole Blood Glucose 139 MG/DL (74-106) H Pending Pending Intake and Output 06/15/20 06/16/20 19:00 07:00 Intake Total 1330 ml 750 ml Balance 1330 ml 750 ml Intake Oral 720 ml 200 ml IV Total 610 ml 550 ml # Voids 2 2 Objective General: No acute distress, awake and alert HEENT: NCAT, sclera anicteric, PERRL, EOMI. Neck: Supple, no significant jugular venous distention, Lungs: fair inspiratory effort, decreased air at the bases, no Wheeze or Rales. Heart: Regular rate and rhythm, normal S1/S2, no murmurs Abdomen: soft, nontender, nondistended. Normoactive bowel sounds, morbid obesity / Rectal: Refused and deferred. Extremities: No Cyanosis , clubbing or edema. Neuro: A&O x 3, Able to move all extremities slowly. Skin: warm, no rashes or lesions Psych: Normal mood and affect Assessment/Plan Assessment/Plan ASSESSMENT: This is a 79-year-old female. 1. COVID-19 pneumonia. 2. Bilateral pneumonia. 3. Abdominal pain. 4. Diabetes type 2. 5. Hypertension. 6. acute Renal failure. 7. Glaucoma. 8. Urinary frequency. TREATMENT: 1. COVID-19/bilateral pneumonia. An Infectious Disease consultation has been obtained with Dr. Ahuja . A Pulmonary consultation has been obtained with Dr. Ulloa. Follow recommendations of Pulmonary and Infectious Diseases. ABX=ceftriaxone. 2. Abdominal pain, this may be secondary to COVID-19. The patient is currently requesting morphine for abdominal pain. urine culture noted. 3. Diabetes type 2. Continue 70/30 insulin as above. A NovoLog sliding scale has been instituted. 4. Hypertension. The patient is currently receiving p.r.n. hydralazine. 5. Renal failure. Nephrology consultation has been obtained with Dr. Reeves. 6. Glaucoma. Continue eye drops as above. Consider discharge to nursing facility. DC Decadron IV Physical therapy evaluation done. CODE STATUS: Full code DVT prophylaxis: Lovenox subcu Emre Trejo MD Jun 16, 2020 19:10
--- NOTE | 2020-06-16 19:30 | NUR ---
NURSE HAND-OFF: Important Events on Shift:N/A Patient Status: Stable Diet: Cardiac (CCHO(M)) Pending Orders: N/A Pending Results/Labs:N/A Pending MD notification:N/A Latest Vital Signs: Temperature 97.9 , Pulse 58 , B/P 141 /64 , Respiratory Rate 20 , O2 SAT 96 , Room Air, O2 Flow Rate . Vital Sign Comment: Stable Latest Rangel Fall Score: 85 Fall Risk: High Risk Safety Measures: Call light Within Reach, Bed Alarm Zone 1, Side Rails Side Rails x2, Bed position Low and Locked. Fall Precautions: Yellow Socks Yellow Gown Door Sign Patient Fall Education Report given to Mary GARNER. Patient in stable condition.
--- NOTE | 2020-06-16 19:40 | NUR ---
Nurses Notes Pt AAOx4 able to make needs known. Pt sitting in viki no respiratory distress noted pt on room air IV to RFA infusing NS@ 50ml/hr.site patent and intact. Pt able to void at bedside commode. walker at bedside. pt instructed to call for assistance. Fall risk and COVID precaution maintained. BS check ACHS will monitor for hypo/hyperglycemia. will continue to monitor patients condition for care and treatment as ordered. bed in lowest position call light in reach.
[2020-06-17] VITALS (7 sets, daily range): BP systolic 111–173; BP diastolic 24–76
[2020-06-17] MEDS: HydrALAZINE 50mg tab ORAL SCH ×3 (05:41→22:09)
[2020-06-17] MEDS: Brimonidine 0.2% Opth Sol RIGHT EYE SCH ×3 (05:43→22:20)
[2020-06-17] MEDS: NovoLOG Insulin Flexpen SUBQ SCH ×4 (05:46→22:11)
--- NOTE | 2020-06-17 07:46 | NUR ---
Nurses notes Report given to Simi Guerrier
--- NOTE | 2020-06-17 07:47 | NUR ---
NURSE NOTES: Received report from Seda GARNER. Patient is awake in bed, A&O x4, no acute distress. On room air, no Sob. IVF running per order. Fall precautions, call light in reach, bed in lowest position. Updated on care plan.
--- NOTE | 2020-06-17 08:15 | Pulmonology Progress Note ---
Subjective ROS Limited/Unobtainable: No Allergies: Coded Allergies: CODEINE (Verified Allergy, Mild, Itching, 08/26/13) SULFA (SULFONAMIDE ANTIBIOTICS) (Verified Adverse Reaction, Mild, 08/26/13) VOMIT Subjective remains on RA afebrile no f/c no cough, no wheezing Objective Last 24 Hour Vital Signs Date Time Temp Pulse Resp B/P (MAP) Pulse Ox O2 Delivery O2 Flow Rate FiO2 06/17/20 05:41 145/76 06/17/20 04:00 97.7 59 20 145/76 (99) 98 06/17/20 03:01 97.7 98 06/17/20 00:00 97.6 54 16 159/67 (97) 94 06/16/20 22:41 164/65 06/16/20 21:00 Room Air 06/16/20 20:00 97.8 81 17 164/65 (98) 96 06/16/20 17:30 Room Air 06/16/20 16:00 97.9 58 20 141/64 (89) 96 06/16/20 13:51 60 165/69 06/16/20 13:41 165/69 06/16/20 12:00 97.6 50 20 165/69 (101) 96 06/16/20 09:16 52 184/73 06/16/20 09:00 Room Air Intake and Output 06/16/20 06/17/20 19:00 07:00 Intake Total 840 ml 200 ml Balance 840 ml 200 ml Intake Oral 840 ml 200 ml # Voids 3 2 General Appearance: no acute distress HEENT: normocephalic, atraumatic, anicteric, mucous membranes moist Respiratory: lungs clear, no respiratory distress, no accessory muscle use Cardiovascular: normal rate, regular rhythm Abdomen: soft, non tender, non distended Extremities: no edema, pedal pulses normal Neurologic: no motor/sensory deficits, alert, responsive Musculoskeletal: normal muscle bulk Laboratory Tests 06/16/20 09:32: POC Whole Blood Glucose [Pending] 06/16/20 11:16: POC Whole Blood Glucose 139H 06/16/20 12:13: POC Whole Blood Glucose [Pending] 06/16/20 17:07: POC Whole Blood Glucose [Pending] 06/16/20 21:05: POC Whole Blood Glucose 158H 06/17/20 05:35: POC Whole Blood Glucose 70L Current Medications Medications (Trade) Dose Ordered Sig/Hever Route PRN Reason Start Time Stop Time Status Last Admin Dose Admin Acetaminophen (Tylenol) 650 mg Q6H PRN ORAL Temp >100.5 06/11/20 10:45 07/11/20 10:44 Acetaminophen (Tylenol) 650 mg Q6H PRN ORAL Mild Pain (Pain Scale 1-3) 06/11/20 11:15 07/11/20 11:14 Acetaminophen/ Hydrocodone Bitart ([place] 5/325) 1 tab Q6H PRN ORAL Moderate Pain (Pain Scale 4-6) 06/11/20 10:45 06/18/20 10:44 Albuterol Sulfate (Proventil MDI) 2 puff Q4H PRN INH Shortness of Breath 06/13/20 17:45 09/11/20 17:44 Aspirin (Ecotrin) 81 mg DAILY ORAL 06/12/20 09:00 07/27/20 08:59 06/16/20 09:16 Bethanechol Chloride (Urecholine) 10 mg THREE TIMES A DAY ORAL 06/11/20 18:00 07/11/20 17:59 06/16/20 17:08 Brimonidine Tartrate (Alphagan) 1 drop Q8HR RIGHT EYE 06/11/20 22:00 09/09/20 21:59 06/17/20 05:43 Ceftriaxone Sodium 1 gm/ Dextrose 55 ml @ 110 mls/hr DAILY IVPB 06/12/20 09:00 06/17/20 23:59 06/16/20 09:15 Dextrose (Dextrose 50%) 25 ml Q30M PRN IV Hypoglycemia 06/11/20 10:45 09/09/20 10:44 Dextrose (Dextrose 50%) 50 ml Q30M PRN IV Hypoglycemia 06/11/20 10:45 09/09/20 10:44 Docusate Sodium (Colace) 100 mg THREE TIMES A DAY ORAL 06/11/20 13:00 07/11/20 12:59 06/16/20 17:07 Enoxaparin Sodium (Lovenox) 40 mg DAILY SUBQ 06/12/20 09:00 09/10/20 08:59 06/16/20 09:17 Folic Acid (Folate) 2 mg DAILY ORAL 06/14/20 11:00 07/14/20 10:59 06/16/20 09:16 Guaifenesin (Robitussin) 100 mg Q6H PRN ORAL For Cough 06/12/20 17:30 09/10/20 17:29 06/13/20 04:10 Hydralazine HCl (Apresoline) 25 mg Q4H PRN ORAL BP over 160 systolic 06/16/20 13:30 09/14/20 13:29 Hydralazine HCl (Apresoline) 50 mg Q8HR ORAL 06/16/20 14:00 09/14/20 00:44 06/17/20 05:41 Insulin Aspart (NovoLOG Mix 70/ 30) 50 units EVERY 12 HOURS SUBQ 06/11/20 21:00 09/09/20 20:59 06/16/20 21:12 Insulin Aspart (NovoLOG) BEFORE MEALS AND HS SUBQ 06/11/20 11:30 09/09/20 11:29 06/16/20 21:14 Morphine Sulfate (Morphine Sulfate) 4 mg Q4H PRN IVP Severe Pain (Pain Scale 7-10) 06/11/20 10:45 06/18/20 10:44 06/16/20 06:08 Nifedipine (Procardia XL) 30 mg DAILY ORAL 06/16/20 13:30 07/16/20 13:29 06/16/20 13:51 Ondansetron HCl (Zofran) 4 mg Q4H PRN IVP Nausea & Vomiting 06/11/20 10:45 07/11/20 10:44 Pantoprazole (Protonix) 40 mg EVERY 12 HOURS ORAL 06/16/20 21:00 07/16/20 20:59 06/16/20 21:06 Phosphorus (Phospha 250 Neutral) 250 mg THREE TIMES A DAY ORAL 06/14/20 11:00 07/14/20 10:59 06/16/20 17:07 Sodium Chloride 1,000 ml @ 50 mls/hr Q20H IV 06/12/20 10:15 07/12/20 10:14 06/16/20 13:45 Timolol Maleate (timoloL maleate 0.5% Op Soln) 1 drop TWICE A DAY BOTH EYES 06/11/20 18:00 07/11/20 17:59 06/16/20 22:42 Assessment/Plan Assessment/Plan ASSESSMENT COVID 19 PNA UTI Elevated D dimer HTN urgency initially - resolved MITZI, probably due to dehydration /POA - already resolved DM with hyperglycemia PLAN OF CARE Date of sx onset: 1 week prior to presentation to ED Positive test: rapid MURALI COV2 06/11 + O2 RA HFA s/p Dex Day#4 given no hypoxia REM: not indicated DVT PPX: Lovenox would D/C home on Xarelto 10 mg PO q Daily to complete 30 days D dimer 7.44 trend CRP Venous Duplex BLE NGT abx per ID recs completing Ceftriaxone today last day, one dose of Diflucan fup cx a/tussive prn fup imaging monitor volumes and renal function, creat down to normal fup with consultants recs FC gentle hydration BP and BS management CT scan A/P noted, -repeat CT A/P in 6 months recommended surgery follows tolerates diet case discussed and evaluated by supervising physician Tami Ortega NP Jun 17, 2020 08:14
[2020-06-17] MEDS ORDERED: cefTRIAXone 1 GM in D5W 55 ML IVPB SCH (09:00)
[2020-06-17] MEDS ORDERED: Fluconazole 150mg tab ORAL SCH (09:00)
[2020-06-17] MEDS: Aspirin EC 81mg tab ORAL SCH (09:23)
[2020-06-17] MEDS: Docusate 100mg cap ORAL SCH ×3 (09:23→17:05)
[2020-06-17] MEDS: Phospha 250 Neutral tab ORAL SCH ×3 (09:23→17:05)
[2020-06-17] MEDS: Bethanechol 10mg Tab ORAL SCH ×3 (09:24→17:04)
[2020-06-17] MEDS: timoloL maleate 0.5% Op Soln 2.5ml BOTH EYES SCH (09:24)
[2020-06-17] MEDS: Enoxaparin 40mg Inj SUBQ SCH (09:32)
--- NOTE | 2020-06-17 14:00 | NUR ---
NURSE NOTES: Hydralazine 50 mg held, Bp 120/61.
--- NOTE | 2020-06-17 15:30 | Nephrology Progress Note ---
Assessment/Plan Problem List: (1) MITZI (acute kidney injury) (2) Diabetes mellitus type II, uncontrolled (3) Hypertension (4) Pneumonia due to COVID-19 virus Assessment Renal failure, most likely acute on chronic Abdominal pain, etiology to be determined Pneumonia due to COVID-19 19 virus Hypertension Hyperglycemia Plan June 17: No CHEM panel drawn today. Blood pressure stable. Medication list reviewed. Continue per consultants. June 16: Labs reviewed. Renal parameters stable. Blood pressure under control. Blood pressure medication adjusted. Monitor bradycardia. Per orders. June 15: Labs reviewed. Renal parameters stable. Continue per consultants. Medication list reviewed. June 14: Labs reviewed. Renal parameters stable. Low phosphorus addressed. Folic acid supplement given. Continue per consultants. June 13: Renal parameters are stable. Continue to monitor electrolytes. Medication list reviewed. Anemia work-up initiated. June 12: Today's labs pending. Normal saline 50 cc an hour started. Continue per home performance consultant. Further comments after checking the labs. Patient started on dexamethasone Lovenox and antibiotics We will monitor renal parameters and blood sugar IV Protonix given Anemia work-up Urine analysis and urine studies Avoid nephrotoxic's Per orders Subjective ROS Limited/Unobtainable: No Constitutional: Reports: malaise Objective Objective Last 24 Hour Vital Signs Date Time Temp Pulse Resp B/P (MAP) Pulse Ox O2 Delivery O2 Flow Rate FiO2 06/17/20 14:00 120/61 06/17/20 12:16 173/74 06/17/20 12:00 97.9 57 20 173/24 (73) 94 06/17/20 09:24 72 159/65 06/17/20 09:00 Room Air 06/17/20 08:00 97.7 72 20 159/65 (96) 94 06/17/20 05:41 145/76 06/17/20 04:00 97.7 59 20 145/76 (99) 98 06/17/20 03:01 97.7 98 06/17/20 00:00 97.6 54 16 159/67 (97) 94 06/16/20 22:41 164/65 06/16/20 21:00 Room Air 06/16/20 20:00 97.8 81 17 164/65 (98) 96 06/16/20 17:30 Room Air 06/16/20 16:00 97.9 58 20 141/64 (89) 96 Intake and Output 06/16/20 06/17/20 19:00 07:00 Intake Total 840 ml 200 ml Balance 840 ml 200 ml Intake Oral 840 ml 200 ml # Voids 3 2 Laboratory Tests 06/16/20 17:07: POC Whole Blood Glucose [Pending] 06/16/20 21:05: POC Whole Blood Glucose 158H 06/17/20 05:35: POC Whole Blood Glucose 70L 06/17/20 09:30: POC Whole Blood Glucose 134H 06/17/20 11:27: POC Whole Blood Glucose 89 Height (Feet): 5 Height (Inches): 8.00 Weight (Pounds): 200 General Appearance: no apparent distress Cardiovascular: normal rate Respiratory/Chest: decreased breath sounds Abdomen: soft Melchor Reeves MD Jun 17, 2020 15:30
--- NOTE | 2020-06-17 16:03 | Internal Med Progress Note ---
Subjective Date of Service: Jun 17, 2020 Physician Name Isael Hutton Attending Physician Emre Trejo MD Current Medications Medications (Trade) Dose Ordered Sig/Hever Route PRN Reason Start Time Stop Time Status Last Admin Dose Admin Acetaminophen (Tylenol) 650 mg Q6H PRN ORAL Temp >100.5 06/11/20 10:45 07/11/20 10:44 Acetaminophen (Tylenol) 650 mg Q6H PRN ORAL Mild Pain (Pain Scale 1-3) 06/11/20 11:15 07/11/20 11:14 Acetaminophen/ Hydrocodone Bitart ([place] 5/325) 1 tab Q6H PRN ORAL Moderate Pain (Pain Scale 4-6) 06/11/20 10:45 06/18/20 10:44 Albuterol Sulfate (Proventil MDI) 2 puff Q4H PRN INH Shortness of Breath 06/13/20 17:45 09/11/20 17:44 Aspirin (Ecotrin) 81 mg DAILY ORAL 06/12/20 09:00 07/27/20 08:59 06/17/20 09:23 Bethanechol Chloride (Urecholine) 10 mg THREE TIMES A DAY ORAL 06/11/20 18:00 07/11/20 17:59 06/17/20 12:16 Brimonidine Tartrate (Alphagan) 1 drop Q8HR RIGHT EYE 06/11/20 22:00 09/09/20 21:59 06/17/20 14:22 Ceftriaxone Sodium 1 gm/ Dextrose 55 ml @ 110 mls/hr Q24H IVPB 06/17/20 09:00 06/24/20 08:59 06/17/20 09:23 Dextrose (Dextrose 50%) 25 ml Q30M PRN IV Hypoglycemia 06/11/20 10:45 09/09/20 10:44 Dextrose (Dextrose 50%) 50 ml Q30M PRN IV Hypoglycemia 06/11/20 10:45 09/09/20 10:44 Docusate Sodium (Colace) 100 mg THREE TIMES A DAY ORAL 06/11/20 13:00 07/11/20 12:59 06/17/20 12:16 Enoxaparin Sodium (Lovenox) 40 mg DAILY SUBQ 06/12/20 09:00 09/10/20 08:59 06/17/20 09:32 Folic Acid (Folate) 2 mg DAILY ORAL 06/14/20 11:00 07/14/20 10:59 06/17/20 09:23 Guaifenesin (Robitussin) 100 mg Q6H PRN ORAL For Cough 06/12/20 17:30 09/10/20 17:29 06/13/20 04:10 Hydralazine HCl (Apresoline) 25 mg Q4H PRN ORAL BP over 160 systolic 06/16/20 13:30 09/14/20 13:29 06/17/20 12:16 Hydralazine HCl (Apresoline) 50 mg Q8HR ORAL 06/16/20 14:00 09/14/20 00:44 06/17/20 05:41 Insulin Aspart (NovoLOG Mix 70/ 30) 50 units EVERY 12 HOURS SUBQ 06/11/20 21:00 09/09/20 20:59 06/17/20 09:33 Insulin Aspart (NovoLOG) BEFORE MEALS AND HS SUBQ 06/11/20 11:30 09/09/20 11:29 06/16/20 21:14 Morphine Sulfate (Morphine Sulfate) 4 mg Q4H PRN IVP Severe Pain (Pain Scale 7-10) 06/11/20 10:45 06/18/20 10:44 06/16/20 06:08 Nifedipine (Procardia XL) 30 mg DAILY ORAL 06/16/20 13:30 07/16/20 13:29 06/17/20 09:24 Ondansetron HCl (Zofran) 4 mg Q4H PRN IVP Nausea & Vomiting 06/11/20 10:45 07/11/20 10:44 Pantoprazole (Protonix) 40 mg EVERY 12 HOURS ORAL 06/16/20 21:00 07/16/20 20:59 06/17/20 09:23 Phosphorus (Phospha 250 Neutral) 250 mg THREE TIMES A DAY ORAL 06/14/20 11:00 07/14/20 10:59 06/17/20 12:16 Timolol Maleate (timoloL maleate 0.5% Op Soln) 1 drop TWICE A DAY BOTH EYES 06/11/20 18:00 07/11/20 17:59 06/17/20 09:24 Allergies: Coded Allergies: CODEINE (Verified Allergy, Mild, Itching, 08/26/13) SULFA (SULFONAMIDE ANTIBIOTICS) (Verified Adverse Reaction, Mild, 08/26/13) VOMIT ROS Limited/Unobtainable: No Constitutional: Reports: no symptoms HEENT: Reports: no symptoms Cardiovascular: Reports: no symptoms Respiratory: Reports: no symptoms Gastrointestinal/Abdominal: Reports: no symptoms Genitourinary: Reports: no symptoms Neurologic/Psychiatric: Reports: no symptoms Subjective 79 YO F admitted with abdominal pain. Now COVID 19 pneumonia. Cover for [facility] Med-Dr Trejo. Objective Last Vital Signs Date Time Temp Pulse Resp B/P (MAP) Pulse Ox O2 Delivery O2 Flow Rate FiO2 06/17/20 14:00 120/61 06/17/20 12:00 97.9 57 20 94 06/17/20 09:00 Room Air Laboratory Tests Test 06/16/20 17:07 06/16/20 21:05 06/17/20 05:35 06/17/20 09:30 POC Whole Blood Glucose Pending 158 MG/DL (74-106) H 70 MG/DL (74-106) L 134 MG/DL (74-106) H Test 06/17/20 11:27 POC Whole Blood Glucose 89 MG/DL (74-106) Intake and Output 06/16/20 06/17/20 19:00 07:00 Intake Total 840 ml 200 ml Balance 840 ml 200 ml Intake Oral 840 ml 200 ml # Voids 3 2 Objective PHYSICAL EXAMINATION: GENERAL: The patient is well-developed and well-nourished female, in moderate abdominal pain distress. HEENT: Eyes, pupils are equal and responsive to light and accommodation. Extraocular movements are intact. NECK: Supple without lymphadenopathy. CHEST: Lungs are clear to auscultation bilaterally without wheezes or rales. CARDIOVASCULAR: Regular rate. S1 and S2 are normal without murmurs, rubs, or gallops. ABDOMEN: Soft, nontender, nondistended. Positive bowel sounds. No evidence of hepatosplenomegaly. Currently, no rebound or guarding noted. EXTREMITIES: Negative for clubbing, cyanosis, or edema. RECTAL/GENITAL: Not performed. NEUROLOGIC: Cranial nerves II through XII are grossly intact without focal deficits. Motor strength is 5/5 bilaterally. Deep tendon reflexes are 2+ plantar. Assessment/Plan Assessment/Plan ASSESSMENT: This is a 79-year-old female. 1. COVID-19 positive. 2. Bilateral pneumonia. 3. Abdominal pain. 4. Diabetes type 2. 5. Hypertension. 6. Renal failure. 7. Glaucoma. 8. Urinary frequency. TREATMENT: 1. COVID-19/bilateral pneumonia. An Infectious Disease consultation has been obtained with Dr. Ahuja . A Pulmonary consultation has been obtained with Dr. Ulloa. Follow recommendations of Pulmonary and Infectious Diseases. ABX=ceftriaxone. continue Decadron day #08/02 2. Abdominal pain, this may be secondary to COVID-19. The patient is currently requesting morphine for abdominal pain. A urine culture is pending. 3. Diabetes type 2. Continue 70/30 insulin as above. A NovoLog sliding scale has been instituted. 4. Hypertension. The patient is currently receiving p.r.n. hydralazine. 5. Renal failure. Nephrology consultation has been obtained with Dr. Reeves. 6. Glaucoma. Continue eye drops as above. Isael Hutton MD Jun 17, 2020 16:03
--- NOTE | 2020-06-17 16:59 | Surgery Progress Note ---
Surgery Progress Note Subjective Symptoms: improved, pain decreased Objective Last 24 Hour Vital Signs Date Time Temp Pulse Resp B/P (MAP) Pulse Ox O2 Delivery O2 Flow Rate FiO2 06/17/20 16:04 97.9 59 20 111/53 (72) 96 06/17/20 14:00 120/61 06/17/20 12:16 173/74 06/17/20 12:00 97.9 57 20 173/24 (73) 94 06/17/20 09:24 72 159/65 06/17/20 09:00 Room Air 06/17/20 08:00 97.7 72 20 159/65 (96) 94 06/17/20 05:41 145/76 06/17/20 04:00 97.7 59 20 145/76 (99) 98 06/17/20 03:01 97.7 98 06/17/20 00:00 97.6 54 16 159/67 (97) 94 06/16/20 22:41 164/65 06/16/20 21:00 Room Air 06/16/20 20:00 97.8 81 17 164/65 (98) 96 06/16/20 17:30 Room Air I&O Intake and Output 06/16/20 06/17/20 19:00 07:00 Intake Total 840 ml 200 ml Balance 840 ml 200 ml Intake Oral 840 ml 200 ml # Voids 3 2 Cardiovascular: RSR Respiratory: clear Abdomen: soft, flat, non-tender, present bowel sounds Extremities: no edema, no tenderness, no cyanosis Laboratory Tests Test 06/16/20 17:07 06/16/20 21:05 06/17/20 05:35 06/17/20 09:30 POC Whole Blood Glucose Pending 158 MG/DL (74-106) H 70 MG/DL (74-106) L 134 MG/DL (74-106) H Test 06/17/20 11:27 POC Whole Blood Glucose 89 MG/DL (74-106) Plan Problems: (1) Constipation (2) Diabetes mellitus (3) Abdominal pain Assessment & Plan: 79 female abdominal pain cramping generalized in nature. CT reviewed large hiatal hernia postsurgical changes and clips identified around the esophagus GE junction potential prior intervention for hernia. Stomach and GI otherwise noted. Secondary to the duodenum noted. Abdominal exam fairly benign labs noted. Nonobstructed. Potentially constipated. Initiate bowel regimen. Okay for diet. Will follow with serial abdominal exams. Thank you let me participate patient's care Redemonstration of large hiatal hernia, possibly paraesophageal in nature. Correlate with dedicated chest imaging and/or esophagram for better characterization. Postsurgical clips are seen adjacent to the distal esophagus and at the GE junction, correlate with surgical history. Prominent bilateral groundglass opacities of the visualized thorax are noted. Findings may represent multifocal infection. Typical and atypical etiologies can be considered. Aspiration may also be an etiology of these findings. There is no pleural effusion of the visualized lung bases. Coronary artery calcification is noted. Solid organ evaluation is limited due to noncontrast technique. Patient is status post cholecystectomy. The unenhanced liver is grossly unremarkable. A stable 0.6 cm right posterior perihepatic nodule is identified in image 38 series 3. The pancreas demonstrates diffuse parenchymal atrophy, without pancreatic ductal dilatation. The spleen is unremarkable. There is bilateral adrenal gland thickening and nodularity with probable 1.5 cm right adrenal adenoma. Correlation with abdominal MRI is recommended for definitive characterization. There is no hydronephrosis or nephrolithiasis of the kidneys. Evaluation of the bowel is limited due to lack of oral contrast. Large hiatal hernia, possibly paraesophageal in nature as described above. Stomach is otherwise under distended, limiting evaluation. Postsurgical clips are seen in the region of the second portion of the duodenum. High density localized to the first portion of the duodenum, image 39 series 3, is nonspecific and may represent focal blood products. Consider correlation with the EGD for better characterization. There is no small bowel obstruction. The appendix is not inflamed. There is mild stool burden of the colon which limits evaluation of the colonic mucosa. Prominent soft tissue thickening is noted at the rectum near the anal verge. Correlation with colonoscopy is recommended to exclude neoplasm in this location, versus other proctitis. There is no ascites, free air, or loculated fluid collection. Mild haziness of the small bowel mesentery stable. Small volume nodes are identified, particularly along the pelvic sidewalls, left greater than right. Urinary bladder is relatively underdistended, living evaluation. Tiny nodular focus along the anterior superior margin of the urinary bladder, image 121 series 3, is unchanged, likely related to urachal remnant. Patient is status post hysterectomy. There is no aneurysm of the abdominal aorta. Moderate to severe atheromatous changes are identified. Stable soft tissue infiltrative changes are noted along the anterior superficial soft tissues. Correlate for injection. Cellulitis is considered less likely given chronicity. Degenerative changes of the visualized thoracolumbar spine are identified. There is redemonstration of grade 1 anterolisthesis of L3 on L4 and severe height loss at L4-L5 levels. Correlate with spinal MRI as clinically warranted. IMPRESSION: Prominent bilateral groundglass opacities of the visualized thorax. Findings may represent multifocal infection. Typical and atypical etiologies can be considered, include COVID pneumonia. Correlate with dedicated CT of the chest for better characterization. Follow to resolution with repeat chest CT in 6 weeks. Aspiration may also be an etiology of these findings as well, given the large hiatal hernia, possibly paraesophageal in morphology. Postsurgical clips are seen in the region of the second portion of the duodenum. High density localized to the first portion of the duodenum, image 39 series 3, is nonspecific and may represent focal blood products. Consider correlation with the EGD for better characterization. Correlate for signs and symptoms of GI bleeding. Prominent soft tissue thickening is noted at the rectum near the anal verge. Correlation with colonoscopy is recommended to exclude neoplasm in this location, versus other proctitis. Stable soft tissue infiltrative changes are noted along the anterior superficial soft tissues. Correlate for injection. Soft tissue cellulitis is considered less likely. Clinical correlation is recommended. A nonspecific indeterminate right posterior perihepatic nodule measuring 0.6 cm is stable. Follow-up CT abdomen pelvis is recommended in 6 months to evaluate for stability of these findings. 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
--- NOTE | 2020-06-17 17:28 | NUR ---
NURSE NOTES: POC glucose was 51, was 120 ml of orange juice. Rechecked in 15 minuted POC was 60, gave 120 ml juice. Patient asymptomatic. Patient is now eating dinner, extra soup ordered. Addendum: 06/17/20 at 1817 by Paige Liz RN Blood sugar rechecked POC 120
[2020-06-17] MEDS ORDERED: Milk of Magnesia 30ml Ud ORAL SCH (19:00)
--- NOTE | 2020-06-17 19:10 | NUR ---
NURSE HAND-OFF: Important Events on Shift:[hypoglycemic episode ] Patient Status: [stable] Diet: [CCHO, cardiac] Pending Orders: [] Pending Results/Labs:[] Pending MD notification:[] Latest Vital Signs: Temperature 97.9 , Pulse 59 , B/P 111 /53 , Respiratory Rate 20 , O2 SAT 96 , Room Air, O2 Flow Rate . Vital Sign Comment: [] Latest Rangel Fall Score: 85 Fall Risk: High Risk Safety Measures: Call light Within Reach, Bed Alarm Zone 1, Side Rails Side Rails x3, Bed position Low and Locked. Fall Precautions: Yellow Socks Yellow Gown Door Sign Patient Fall Education Report given to [Sean RN].
--- NOTE | 2020-06-17 20:00 | NUR ---
NURSE NOTES: Pt is in bed, awake and alert. Vitas stable.Room air. Pt able to ambulate to the bathroom with assistance.Blood sugar 194, insulin coverage given as ordered. Pt is high fall risk. Fall precaution in place, bed alarm on, bed locked low in position, side rails up and call light within reach. Pt is asked repeatedly to call for assistance before getting out of bed. Pt will be monitored.
[2020-06-18] VITALS: BP 134/53
[2020-06-18 04:00] VITALS: BP 157/77
[2020-06-18] MEDS: HydrALAZINE 50mg tab ORAL SCH ×3 (06:00→21:27)
[2020-06-18] MEDS: Brimonidine 0.2% Opth Sol RIGHT EYE SCH ×3 (06:00→21:28)
[2020-06-18] MEDS: NovoLOG Insulin Flexpen SUBQ SCH ×4 (06:30→21:39)
--- NOTE | 2020-06-18 06:45 | NUR ---
NURSE NOTES: Pt's blood sugar was 44 on first check and after 2 apple juices the blood sugar was 68. Pt is asymptomatic, sitting in the bed eating breakfast. Oncoming nurse will be informed to monitor blood sugar closely. Dr. Hutton was called and message left. [employer] LUMITE INJECTOR Tami Ortega made aware.
--- NOTE | 2020-06-18 07:20 | NUR ---
NURSE HAND-OFF: Important Events on Shift:[Low blood sugar of 44 after 2 apple juices 68: pt is asymptomatic. Pt is eating breakfast] Patient Status: [Stable] Diet: [CCHO Med ] Pending Orders: [] Pending Results/Labs:[] Pending MD notification:[[employer]LEY W[employer] INSTALLER Tami Ortega notified about the low blood sugar] Latest Vital Signs: Temperature 96.8 , Pulse 68 , B/P 157 /77 , Respiratory Rate 17 , O2 SAT 96 , Room Air, O2 Flow Rate . Vital Sign Comment: [] Latest Ragnel Fall Score: 85 Fall Risk: High Risk Safety Measures: Call light Within Reach, Bed Alarm Zone 1, Side Rails Side Rails x3, Bed position Low and Locked. Fall Precautions: Yellow Socks Yellow Gown Door Sign Patient Fall Education Report given to [Paige Liz RN. Informed to monitor blood sugar level closely, also notified that pt is high fall risk ].
--- NOTE | 2020-06-18 07:21 | NUR ---
NURSE NOTES: Received report from Sean RN. Patient awake in bed A&O x4, no acute distress. On RA on Sob. IV patent and asymptomatic. Patient reports no pain. Fall precautions, patient reminded to use call light before getting out of bed, bed in lowest position, siderails up x3, bed alarm on, call light in reach. Updated on care plan.
--- NOTE | 2020-06-18 07:57 | Pulmonology Progress Note ---
Subjective ROS Limited/Unobtainable: No Allergies: Coded Allergies: CODEINE (Verified Allergy, Mild, Itching, 08/26/13) SULFA (SULFONAMIDE ANTIBIOTICS) (Verified Adverse Reaction, Mild, 08/26/13) VOMIT Subjective remains on RA afebrile no f/c no cough, no wheezing yesterday c/o constipation, bowel regimen intensified, had BM BS low in am for 2 consecutive days ; pt reports having HS snack, gets pm dose of 70/30 Objective Last 24 Hour Vital Signs Date Time Temp Pulse Resp B/P (MAP) Pulse Ox O2 Delivery O2 Flow Rate FiO2 06/18/20 06:00 157/77 06/18/20 04:00 96.8 68 17 157/77 (103) 96 06/18/20 00:00 98.0 60 16 134/53 (80) 96 06/17/20 22:09 140/59 06/17/20 21:00 Room Air 06/17/20 20:00 97.6 63 17 140/59 (86) 96 06/17/20 17:30 Room Air 06/17/20 16:04 97.9 59 20 111/53 (72) 96 06/17/20 14:00 120/61 06/17/20 12:16 173/74 06/17/20 12:00 97.9 57 20 173/24 (73) 94 06/17/20 09:24 72 159/65 06/17/20 09:00 Room Air 06/17/20 08:00 97.7 72 20 159/65 (96) 94 Intake and Output 06/17/20 06/18/20 19:00 07:00 Intake Total 590 ml 360 ml Balance 590 ml 360 ml Intake Oral 480 ml IV Total 110 ml Other 360 ml # Voids 2 2 General Appearance: no acute distress HEENT: normocephalic, atraumatic, anicteric, mucous membranes moist Respiratory: lungs clear, no respiratory distress, no accessory muscle use Cardiovascular: normal rate, regular rhythm Abdomen: soft, non tender, non distended Extremities: no edema, pedal pulses normal Neurologic: no motor/sensory deficits, alert, responsive Musculoskeletal: normal muscle bulk Laboratory Tests 06/17/20 09:30: POC Whole Blood Glucose 134H 06/17/20 11:27: POC Whole Blood Glucose 89 06/17/20 20:58: POC Whole Blood Glucose 194H 06/18/20 06:19: POC Whole Blood Glucose 42L 06/18/20 06:22: POC Whole Blood Glucose 44L 06/18/20 07:00: POC Whole Blood Glucose 68L Current Medications Medications (Trade) Dose Ordered Sig/Hever Route PRN Reason Start Time Stop Time Status Last Admin Dose Admin Acetaminophen (Tylenol) 650 mg Q6H PRN ORAL Temp >100.5 06/11/20 10:45 07/11/20 10:44 Acetaminophen (Tylenol) 650 mg Q6H PRN ORAL Mild Pain (Pain Scale 1-3) 06/11/20 11:15 07/11/20 11:14 Acetaminophen/ Hydrocodone Bitart ([place] 5/325) 1 tab Q6H PRN ORAL Moderate Pain (Pain Scale 4-6) 06/11/20 10:45 06/18/20 10:44 Albuterol Sulfate (Proventil MDI) 2 puff Q4H PRN INH Shortness of Breath 06/13/20 17:45 09/11/20 17:44 Aspirin (Ecotrin) 81 mg DAILY ORAL 06/12/20 09:00 07/27/20 08:59 06/17/20 09:23 Bethanechol Chloride (Urecholine) 10 mg THREE TIMES A DAY ORAL 06/11/20 18:00 07/11/20 17:59 06/17/20 17:04 Brimonidine Tartrate (Alphagan) 1 drop Q8HR RIGHT EYE 06/11/20 22:00 09/09/20 21:59 06/18/20 06:00 Ceftriaxone Sodium 1 gm/ Dextrose 55 ml @ 110 mls/hr Q24H IVPB 06/17/20 09:00 06/24/20 08:59 06/17/20 09:23 Dextrose (Dextrose 50%) 25 ml Q30M PRN IV Hypoglycemia 06/11/20 10:45 09/09/20 10:44 Dextrose (Dextrose 50%) 50 ml Q30M PRN IV Hypoglycemia 06/11/20 10:45 09/09/20 10:44 Docusate Sodium (Colace) 100 mg THREE TIMES A DAY ORAL 06/11/20 13:00 07/11/20 12:59 06/17/20 17:05 Enoxaparin Sodium (Lovenox) 40 mg DAILY SUBQ 06/12/20 09:00 09/10/20 08:59 06/17/20 09:32 Folic Acid (Folate) 2 mg DAILY ORAL 06/14/20 11:00 07/14/20 10:59 06/17/20 09:23 Guaifenesin (Robitussin) 100 mg Q6H PRN ORAL For Cough 06/12/20 17:30 09/10/20 17:29 06/13/20 04:10 Hydralazine HCl (Apresoline) 25 mg Q4H PRN ORAL BP over 160 systolic 06/16/20 13:30 09/14/20 13:29 06/17/20 12:16 Hydralazine HCl (Apresoline) 50 mg Q8HR ORAL 06/16/20 14:00 09/14/20 00:44 06/18/20 06:00 Insulin Aspart (NovoLOG Mix 70/ 30) 50 units EVERY 12 HOURS SUBQ 06/11/20 21:00 09/09/20 20:59 06/17/20 22:10 Insulin Aspart (NovoLOG) BEFORE MEALS AND HS SUBQ 06/11/20 11:30 09/09/20 11:29 06/17/20 22:11 Morphine Sulfate (Morphine Sulfate) 4 mg Q4H PRN IVP Severe Pain (Pain Scale 7-10) 06/11/20 10:45 06/18/20 10:44 06/16/20 06:08 Nifedipine (Procardia XL) 30 mg DAILY ORAL 06/16/20 13:30 07/16/20 13:29 06/17/20 09:24 Ondansetron HCl (Zofran) 4 mg Q4H PRN IVP Nausea & Vomiting 06/11/20 10:45 07/11/20 10:44 Pantoprazole (Protonix) 40 mg EVERY 12 HOURS ORAL 06/16/20 21:00 07/16/20 20:59 06/17/20 22:09 Phosphorus (Phospha 250 Neutral) 250 mg THREE TIMES A DAY ORAL 06/14/20 11:00 07/14/20 10:59 06/17/20 17:05 Polyethylene Glycol (Miralax) 17 gm DAILY ORAL 06/18/20 09:00 07/18/20 08:59 Timolol Maleate (timoloL maleate 0.5% Op Soln) 1 drop TWICE A DAY BOTH EYES 06/11/20 18:00 07/11/20 17:59 06/17/20 09:24 Assessment/Plan Assessment/Plan ASSESSMENT COVID 19 PNA UTI Elevated D dimer HTN urgency initially - resolved MITZI, probably due to dehydration /POA - already resolved DM with hyperglycemia PLAN OF CARE Date of sx onset: 1 week prior to presentation to ED Positive test: rapid MURALI COV2 06/11 + O2 RA HFA s/p Dex Day#4 given no hypoxia REM: not indicated DVT PPX: Lovenox would D/C home on Xarelto 10 mg PO q Daily to complete 30 days D dimer 7.44 trend CRP Venous Duplex BLE NGT abx per ID recs completing Ceftriaxone today last day, one dose of Diflucan a/tussive prn fup imaging monitor volumes and renal function, creat down to normal fup with consultants recs FC gentle hydration BP and BS management CT scan A/P noted, -repeat CT A/P in 6 months recommended surgery follows tolerates diet bowel regimen intensified, had BM hypoglycemia in am for 2 consecutive days, decrease PM dose of 70/30 to 45 u and keep 50 u in am ensure hs snack case discussed and evaluated by supervising physician Tami Ortega NP Jun 18, 2020 07:57
[2020-06-18 08:00] VITALS: BP 176/64
[2020-06-18 08:19] LABS: BASOPHILS % (AUTO) 0.7 % (0.0-2.0); EOSINOPHILS % (AUTO) 0.4 % (0.0-3.0); HEMATOCRIT 37.7 % (37.0-47.0); HEMOGLOBIN 11.6 G/DL (12.0-16.0); LYMPHOCYTES % (AUTO) 26.1 % (20.0-45.0); MEAN CORPUSCULAR VOLUME 91 FL (80-99); MONOCYTES % (AUTO) 10.6 % (1.0-10.0); NEUTROPHILS % (AUTO) 62.2 % (45.0-75.0); PLATELET COUNT 333 K/UL (150-450); RED BLOOD COUNT 4.16 M/UL (4.20-5.40); RED CELL DISTRIBUTION WIDTH 14.5 % (11.6-14.8); WHITE BLOOD COUNT 5.1 K/UL (4.8-10.8)
[2020-06-18 08:57] LABS: ANION GAP 10 mmol/L (5-15); BLOOD UREA NITROGEN 14 mg/dL (7-18); CALCIUM 9.2 MG/DL (8.5-10.1); CARBON DIOXIDE 30 MMOL/L (21-32); CHLORIDE 108 MMOL/L (98-107); POTASSIUM 4.1 MMOL/L (3.5-5.1); SODIUM 147 MMOL/L (136-145)
--- NOTE | 2020-06-18 09:03 | NUR ---
Blood glucose POC 172.
[2020-06-18] MEDS: Miralax 17gm pkt ORAL SCH (09:16)
[2020-06-18] MEDS: Phospha 250 Neutral tab ORAL SCH ×3 (09:17→17:03)
[2020-06-18] MEDS: Bethanechol 10mg Tab ORAL SCH ×3 (09:17→17:03)
[2020-06-18] MEDS: Aspirin EC 81mg tab ORAL SCH (09:17)
[2020-06-18] MEDS: Docusate 100mg cap ORAL SCH ×3 (09:17→17:03)
[2020-06-18] MEDS: Enoxaparin 40mg Inj SUBQ SCH (09:19)
[2020-06-18] MEDS: timoloL maleate 0.5% Op Soln 2.5ml BOTH EYES SCH ×2 (09:20→17:05)
[2020-06-18 09:38] LABS: ALANINE AMINOTRANSFERASE 42 U/L (12-78); ALBUMIN 2.4 G/DL (3.4-5.0); ALKALINE PHOSPHATASE 60 U/L (46-116); ASPARTATE AMINO TRANSFERASE 34 U/L (15-37); BILIRUBIN,DIRECT 0.1 MG/DL (0.0-0.3); BILIRUBIN,TOTAL < 0.1 MG/DL (0.2-1.0); PHOSPHORUS 4.3 MG/DL (2.5-4.9)
--- NOTE | 2020-06-18 10:04 | Infectious Diseases Prog Note ---
Assessment/Plan 79yo F with: COVID+ Doing well on RA Normal WBC 06/11 COVID rapid positive CXR: Multifocal lung parenchymal opacities are better seen on the recent CT abdomen pelvis, new since prior CT from 03/16/2020. There is a hiatal hernia also better seen on the recent CT abdomen pelvis. R/o UTI Vaginal yeast infection, SP tx 06/11 UA+, UCx +yeast Cr 1.4 Abd pain x1 week, prompting pt to come to ED 06/11 CT A/P: Prominent bilateral groundglass opacities of the visualized thorax. Postsurgical clips are seen in the region of the second portion of the duodenum. High density localized to the first portion of the duodenum, image 39 series 3, is nonspecific and may represent focal blood products. Prominent soft tissue thickening is noted at the rectum near the anal verge. Stable soft tissue infiltrative changes are noted along the anterior superficial soft tissues. A nonspecific indeterminate right posterior perihepatic nodule measuring 0.6 cm is stable. HTN Plan: Stop empiric CTX #7/7 for UTI, on discharge can transition to cephalexin 500mg PO QID to complete rest of course (2 more days) As doing well on RA and UTI sx improving, ok to d/c home from ID standpoint on above PO abx. Ensure PCP f/u given COVID+ Needs COVID isolation through 06/21 Not candidate for remdesivir nor steroids given doing well on RA This hospital does not have access to convalescent plasma, and pt doing well on RA so not candidate for it anyways 06/18 SP CTX #7 for UTI 06/11 & 06/15 SP fluconazole 150mg for vaginal yeast infection Monitor CBC/CMP Monitor resp status Monitor temp curve, hemodynamics D/w RN Thank you for this consult. [facility] will continue to follow. Subjective Allergies: Coded Allergies: CODEINE (Verified Allergy, Mild, Itching, 08/26/13) SULFA (SULFONAMIDE ANTIBIOTICS) (Verified Adverse Reaction, Mild, 08/26/13) VOMIT AF NAD on RA satting well Off abx now Reports feeling better, less abd pain, still weak but eating more Objective Last 24 Hour Vital Signs Date Time Temp Pulse Resp B/P (MAP) Pulse Ox O2 Delivery O2 Flow Rate FiO2 06/18/20 09:18 82 176/64 06/18/20 08:00 97.3 19 176/64 (101) 97 06/18/20 06:00 157/77 06/18/20 04:00 96.8 68 17 157/77 (103) 96 06/18/20 00:00 98.0 60 16 134/53 (80) 96 06/17/20 22:09 140/59 06/17/20 21:00 Room Air 06/17/20 20:00 97.6 63 17 140/59 (86) 96 06/17/20 17:30 Room Air 06/17/20 16:04 97.9 59 20 111/53 (72) 96 06/17/20 14:00 120/61 06/17/20 12:16 173/74 06/17/20 12:00 97.9 57 20 173/24 (73) 94 Height (Feet): 5 Height (Inches): 8.00 Weight (Pounds): 200 Gen: NAD HEENT: NCAT Pulm: BL chest rise on RA, non-labored Abd: Obese, soft, mildly TTP in the lower quadrants, no rebound or guarding Ext: No c/c/e Skin: No visible rashes Neuro: Awake, alert, itneractive Laboratory Tests Test 06/17/20 11:27 06/17/20 16:32 06/17/20 17:07 06/17/20 18:13 POC Whole Blood Glucose 89 MG/DL (74-106) Pending 60 MG/DL (74-106) L 120 MG/DL (74-106) H Test 06/17/20 20:58 06/18/20 06:15 06/18/20 06:19 06/18/20 06:22 POC Whole Blood Glucose 194 MG/DL (74-106) H 42 MG/DL (74-106) L 44 MG/DL (74-106) L White Blood Count 5.1 K/UL (4.8-10.8) Red Blood Count 4.16 M/UL (4.20-5.40) L Hemoglobin 11.6 G/DL (12.0-16.0) L Hematocrit 37.7 % (37.0-47.0) Mean Corpuscular Volume 91 FL (80-99) Mean Corpuscular Hemoglobin 27.9 PG (27.0-31.0) Mean Corpuscular Hemoglobin Concent 30.8 G/DL (32.0-36.0) L Red Cell Distribution Width 14.5 % (11.6-14.8) Platelet Count 333 K/UL (150-450) Mean Platelet Volume 6.0 FL (6.5-10.1) L Neutrophils (%) (Auto) 62.2 % (45.0-75.0) Lymphocytes (%) (Auto) 26.1 % (20.0-45.0) Monocytes (%) (Auto) 10.6 % (1.0-10.0) H Eosinophils (%) (Auto) 0.4 % (0.0-3.0) Basophils (%) (Auto) 0.7 % (0.0-2.0) Sodium Level 147 MMOL/L (136-145) H Potassium Level 4.1 MMOL/L (3.5-5.1) Chloride Level 108 MMOL/L (98-107) H Carbon Dioxide Level 30 MMOL/L (21-32) Anion Gap 10 mmol/L (5-15) Blood Urea Nitrogen 14 mg/dL (7-18) Creatinine 1.0 MG/DL (0.55-1.30) Estimat Glomerular Filtration Rate > 60 mL/min (>60) Glucose Level 37 MG/DL (74-106) *L Calcium Level 9.2 MG/DL (8.5-10.1) Phosphorus Level 4.3 MG/DL (2.5-4.9) Magnesium Level 2.0 MG/DL (1.8-2.4) Total Bilirubin < 0.1 MG/DL (0.2-1.0) L Direct Bilirubin 0.1 MG/DL (0.0-0.3) Aspartate Amino Transf (AST/SGOT) 34 U/L (15-37) Alanine Aminotransferase (ALT/SGPT) 42 U/L (12-78) Alkaline Phosphatase 60 U/L (46-116) Total Protein 5.9 G/DL (6.4-8.2) L Albumin 2.4 G/DL (3.4-5.0) L Test 06/18/20 07:00 06/18/20 08:59 POC Whole Blood Glucose 68 MG/DL (74-106) L 172 MG/DL (74-106) H Current Medications Medications (Trade) Dose Ordered Sig/Hever Route PRN Reason Start Time Stop Time Status Last Admin Dose Admin Acetaminophen (Tylenol) 650 mg Q6H PRN ORAL Temp >100.5 06/11/20 10:45 07/11/20 10:44 Acetaminophen (Tylenol) 650 mg Q6H PRN ORAL Mild Pain (Pain Scale 1-3) 06/11/20 11:15 07/11/20 11:14 Acetaminophen/ Hydrocodone Bitart ([place] 5/325) 1 tab Q6H PRN ORAL Moderate Pain (Pain Scale 4-6) 06/11/20 10:45 06/18/20 10:44 Albuterol Sulfate (Proventil MDI) 2 puff Q4H PRN INH Shortness of Breath 06/13/20 17:45 09/11/20 17:44 Aspirin (Ecotrin) 81 mg DAILY ORAL 06/12/20 09:00 07/27/20 08:59 06/18/20 09:17 Bethanechol Chloride (Urecholine) 10 mg THREE TIMES A DAY ORAL 06/11/20 18:00 07/11/20 17:59 06/18/20 09:17 Brimonidine Tartrate (Alphagan) 1 drop Q8HR RIGHT EYE 06/11/20 22:00 09/09/20 21:59 06/18/20 06:00 Dextrose (Dextrose 50%) 25 ml Q30M PRN IV Hypoglycemia 06/11/20 10:45 09/09/20 10:44 Dextrose (Dextrose 50%) 50 ml Q30M PRN IV Hypoglycemia 06/11/20 10:45 09/09/20 10:44 Docusate Sodium (Colace) 100 mg THREE TIMES A DAY ORAL 06/11/20 13:00 07/11/20 12:59 06/18/20 09:17 Enoxaparin Sodium (Lovenox) 40 mg DAILY SUBQ 06/12/20 09:00 09/10/20 08:59 06/18/20 09:19 Folic Acid (Folate) 2 mg DAILY ORAL 06/14/20 11:00 07/14/20 10:59 06/18/20 09:17 Guaifenesin (Robitussin) 100 mg Q6H PRN ORAL For Cough 06/12/20 17:30 09/10/20 17:29 06/13/20 04:10 Hydralazine HCl (Apresoline) 25 mg Q4H PRN ORAL BP over 160 systolic 06/16/20 13:30 09/14/20 13:29 06/17/20 12:16 Hydralazine HCl (Apresoline) 50 mg Q8HR ORAL 06/16/20 14:00 09/14/20 00:44 06/18/20 06:00 Insulin Aspart (NovoLOG Mix 70/ 30) 25 units ONCE SUBQ 06/18/20 10:00 06/18/20 10:30 Insulin Aspart (NovoLOG Mix 70/ 30) 45 units QHS SUBQ 06/18/20 21:00 09/16/20 20:59 Insulin Aspart (NovoLOG Mix 70/ 30) 50 units DAILY SUBQ 06/18/20 09:00 09/09/20 20:59 Insulin Aspart (NovoLOG) BEFORE MEALS AND HS SUBQ 06/11/20 11:30 09/09/20 11:29 06/17/20 22:11 Morphine Sulfate (Morphine Sulfate) 4 mg Q4H PRN IVP Severe Pain (Pain Scale 7-10) 06/11/20 10:45 06/18/20 10:44 06/16/20 06:08 Nifedipine (Procardia XL) 30 mg DAILY ORAL 06/16/20 13:30 07/16/20 13:29 06/18/20 09:18 Ondansetron HCl (Zofran) 4 mg Q4H PRN IVP Nausea & Vomiting 06/11/20 10:45 07/11/20 10:44 Pantoprazole (Protonix) 40 mg EVERY 12 HOURS ORAL 06/16/20 21:00 07/16/20 20:59 06/18/20 09:17 Phosphorus (Phospha 250 Neutral) 250 mg THREE TIMES A DAY ORAL 06/14/20 11:00 07/14/20 10:59 06/18/20 09:17 Polyethylene Glycol (Miralax) 17 gm DAILY ORAL 06/18/20 09:00 07/18/20 08:59 06/18/20 09:16 Timolol Maleate (timoloL maleate 0.5% Op Soln) 1 drop TWICE A DAY BOTH EYES 06/11/20 18:00 07/11/20 17:59 06/18/20 09:20 Milagro Ahuja M.D. Jun 18, 2020 10:04
--- NOTE | 2020-06-18 10:53 | Surgery Progress Note ---
Surgery Progress Note Subjective Symptoms: improved, tolerating diet, passing flatus Objective Last 24 Hour Vital Signs Date Time Temp Pulse Resp B/P (MAP) Pulse Ox O2 Delivery O2 Flow Rate FiO2 06/18/20 09:18 82 176/64 06/18/20 09:00 Room Air 06/18/20 08:00 97.3 19 176/64 (101) 97 06/18/20 06:00 157/77 06/18/20 04:00 96.8 68 17 157/77 (103) 96 06/18/20 00:00 98.0 60 16 134/53 (80) 96 06/17/20 22:09 140/59 06/17/20 21:00 Room Air 06/17/20 20:00 97.6 63 17 140/59 (86) 96 06/17/20 17:30 Room Air 06/17/20 16:04 97.9 59 20 111/53 (72) 96 06/17/20 14:00 120/61 06/17/20 12:16 173/74 06/17/20 12:00 97.9 57 20 173/24 (73) 94 I&O Intake and Output 06/17/20 06/18/20 19:00 07:00 Intake Total 590 ml 360 ml Balance 590 ml 360 ml Intake Oral 480 ml IV Total 110 ml Other 360 ml # Voids 2 2 Cardiovascular: RSR Respiratory: clear, decreased breath sounds Abdomen: soft, non-tender, present bowel sounds, non-distended Extremities: no tenderness, no cyanosis Laboratory Tests Test 06/17/20 11:27 06/17/20 16:32 06/17/20 17:07 06/17/20 18:13 POC Whole Blood Glucose 89 MG/DL (74-106) Pending 60 MG/DL (74-106) L 120 MG/DL (74-106) H Test 06/17/20 20:58 06/18/20 06:15 06/18/20 06:19 06/18/20 06:22 POC Whole Blood Glucose 194 MG/DL (74-106) H 42 MG/DL (74-106) L 44 MG/DL (74-106) L White Blood Count 5.1 K/UL (4.8-10.8) Red Blood Count 4.16 M/UL (4.20-5.40) L Hemoglobin 11.6 G/DL (12.0-16.0) L Hematocrit 37.7 % (37.0-47.0) Mean Corpuscular Volume 91 FL (80-99) Mean Corpuscular Hemoglobin 27.9 PG (27.0-31.0) Mean Corpuscular Hemoglobin Concent 30.8 G/DL (32.0-36.0) L Red Cell Distribution Width 14.5 % (11.6-14.8) Platelet Count 333 K/UL (150-450) Mean Platelet Volume 6.0 FL (6.5-10.1) L Neutrophils (%) (Auto) 62.2 % (45.0-75.0) Lymphocytes (%) (Auto) 26.1 % (20.0-45.0) Monocytes (%) (Auto) 10.6 % (1.0-10.0) H Eosinophils (%) (Auto) 0.4 % (0.0-3.0) Basophils (%) (Auto) 0.7 % (0.0-2.0) Sodium Level 147 MMOL/L (136-145) H Potassium Level 4.1 MMOL/L (3.5-5.1) Chloride Level 108 MMOL/L (98-107) H Carbon Dioxide Level 30 MMOL/L (21-32) Anion Gap 10 mmol/L (5-15) Blood Urea Nitrogen 14 mg/dL (7-18) Creatinine 1.0 MG/DL (0.55-1.30) Estimat Glomerular Filtration Rate > 60 mL/min (>60) Glucose Level 37 MG/DL (74-106) *L Calcium Level 9.2 MG/DL (8.5-10.1) Phosphorus Level 4.3 MG/DL (2.5-4.9) Magnesium Level 2.0 MG/DL (1.8-2.4) Total Bilirubin < 0.1 MG/DL (0.2-1.0) L Direct Bilirubin 0.1 MG/DL (0.0-0.3) Aspartate Amino Transf (AST/SGOT) 34 U/L (15-37) Alanine Aminotransferase (ALT/SGPT) 42 U/L (12-78) Alkaline Phosphatase 60 U/L (46-116) Total Protein 5.9 G/DL (6.4-8.2) L Albumin 2.4 G/DL (3.4-5.0) L Test 06/18/20 07:00 06/18/20 08:59 POC Whole Blood Glucose 68 MG/DL (74-106) L 172 MG/DL (74-106) H Plan Problems: (1) Constipation (2) Diabetes mellitus (3) Abdominal pain Assessment & Plan: 79 female abdominal pain cramping generalized in nature. CT reviewed large hiatal hernia postsurgical changes and clips identified around the esophagus GE junction potential prior intervention for hernia. Stomach and GI otherwise noted. Secondary to the duodenum noted. Abdominal exam fairly benign labs noted. Nonobstructed. Potentially constipated. Initiate bowel regimen. Okay for diet. Will follow with serial abdominal exams. Thank you let me participate patient's care Redemonstration of large hiatal hernia, possibly paraesophageal in nature. Correlate with dedicated chest imaging and/or esophagram for better characterization. Postsurgical clips are seen adjacent to the distal esophagus and at the GE junction, correlate with surgical history. Prominent bilateral groundglass opacities of the visualized thorax are noted. Findings may represent multifocal infection. Typical and atypical etiologies can be considered. Aspiration may also be an etiology of these findings. There is no pleural effusion of the visualized lung bases. Coronary artery calcification is noted. Solid organ evaluation is limited due to noncontrast technique. Patient is status post cholecystectomy. The unenhanced liver is grossly unremarkable. A stable 0.6 cm right posterior perihepatic nodule is identified in image 38 series 3. The pancreas demonstrates diffuse parenchymal atrophy, without pancreatic ductal dilatation. The spleen is unremarkable. There is bilateral adrenal gland thickening and nodularity with probable 1.5 cm right adrenal adenoma. Correlation with abdominal MRI is recommended for definitive characterization. There is no hydronephrosis or nephrolithiasis of the kidneys. Evaluation of the bowel is limited due to lack of oral contrast. Large hiatal hernia, possibly paraesophageal in nature as described above. Stomach is otherwise under distended, limiting evaluation. Postsurgical clips are seen in the region of the second portion of the duodenum. High density localized to the first portion of the duodenum, image 39 series 3, is nonspecific and may represent focal blood products. Consider correlation with the EGD for better characterization. There is no small bowel obstruction. The appendix is not inflamed. There is mild stool burden of the colon which limits evaluation of the colonic mucosa. Prominent soft tissue thickening is noted at the rectum near the anal verge. Correlation with colonoscopy is recommended to exclude neoplasm in this location, versus other proctitis. There is no ascites, free air, or loculated fluid collection. Mild haziness of the small bowel mesentery stable. Small volume nodes are identified, particularly along the pelvic sidewalls, left greater than right. Urinary bladder is relatively underdistended, living evaluation. Tiny nodular focus along the anterior superior margin of the urinary bladder, image 121 series 3, is unchanged, likely related to urachal remnant. Patient is status post hysterectomy. There is no aneurysm of the abdominal aorta. Moderate to severe atheromatous changes are identified. Stable soft tissue infiltrative changes are noted along the anterior superficial soft tissues. Correlate for injection. Cellulitis is considered less likely given chronicity. Degenerative changes of the visualized thoracolumbar spine are identified. There is redemonstration of grade 1 anterolisthesis of L3 on L4 and severe height loss at L4-L5 levels. Correlate with spinal MRI as clinically warranted. IMPRESSION: Prominent bilateral groundglass opacities of the visualized thorax. Findings may represent multifocal infection. Typical and atypical etiologies can be considered, include COVID pneumonia. Correlate with dedicated CT of the chest for better characterization. Follow to resolution with repeat chest CT in 6 weeks. Aspiration may also be an etiology of these findings as well, given the large hiatal hernia, possibly paraesophageal in morphology. Postsurgical clips are seen in the region of the second portion of the duodenum. High density localized to the first portion of the duodenum, image 39 series 3, is nonspecific and may represent focal blood products. Consider correlation with the EGD for better characterization. Correlate for signs and symptoms of GI bleeding. Prominent soft tissue thickening is noted at the rectum near the anal verge. Correlation with colonoscopy is recommended to exclude neoplasm in this location, versus other proctitis. Stable soft tissue infiltrative changes are noted along the anterior superficial soft tissues. Correlate for injection. Soft tissue cellulitis is considered less likely. Clinical correlation is recommended. A nonspecific indeterminate right posterior perihepatic nodule measuring 0.6 cm is stable. Follow-up CT abdomen pelvis is recommended in 6 months to evaluate for stability of these findings. 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
--- NOTE | 2020-06-18 11:44 | Nephrology Progress Note ---
Assessment/Plan Problem List: (1) MITZI (acute kidney injury) (2) Diabetes mellitus type II, uncontrolled (3) Hypertension (4) Pneumonia due to COVID-19 virus Assessment Renal failure, most likely acute on chronic Abdominal pain, etiology to be determined Pneumonia due to COVID-19 19 virus Hypertension Hyperglycemia Plan June 18: Labs reviewed. Renal parameters stable. Low blood sugar noted. Continue per precipitate washer. June 17: No CHEM panel drawn today. Blood pressure stable. Medication list reviewed. Continue per consultants. June 16: Labs reviewed. Renal parameters stable. Blood pressure under control. Blood pressure medication adjusted. Monitor bradycardia. Per orders. June 15: Labs reviewed. Renal parameters stable. Continue per consultants. Medication list reviewed. June 14: Labs reviewed. Renal parameters stable. Low phosphorus addressed. Folic acid supplement given. Continue per consultants. June 13: Renal parameters are stable. Continue to monitor electrolytes. Medication list reviewed. Anemia work-up initiated. June 12: Today's labs pending. Normal saline 50 cc an hour started. Continue per agriculture consultant. Further comments after checking the labs. Patient started on dexamethasone Lovenox and antibiotics We will monitor renal parameters and blood sugar IV Protonix given Anemia work-up Urine analysis and urine studies Avoid nephrotoxic's Per orders Subjective ROS Limited/Unobtainable: No Constitutional: Reports: malaise Objective Objective Last 24 Hour Vital Signs Date Time Temp Pulse Resp B/P (MAP) Pulse Ox O2 Delivery O2 Flow Rate FiO2 06/18/20 09:18 82 176/64 06/18/20 09:00 Room Air 06/18/20 08:00 97.3 19 176/64 (101) 97 06/18/20 06:00 157/77 06/18/20 04:00 96.8 68 17 157/77 (103) 96 06/18/20 00:00 98.0 60 16 134/53 (80) 96 06/17/20 22:09 140/59 06/17/20 21:00 Room Air 06/17/20 20:00 97.6 63 17 140/59 (86) 96 06/17/20 17:30 Room Air 06/17/20 16:04 97.9 59 20 111/53 (72) 96 06/17/20 14:00 120/61 06/17/20 12:16 173/74 06/17/20 12:00 97.9 57 20 173/24 (73) 94 Intake and Output 06/17/20 06/18/20 19:00 07:00 Intake Total 590 ml 360 ml Balance 590 ml 360 ml Intake Oral 480 ml IV Total 110 ml Other 360 ml # Voids 2 2 Laboratory Tests 06/17/20 16:32: POC Whole Blood Glucose [Pending] 06/17/20 17:07: POC Whole Blood Glucose 60L 06/17/20 18:13: POC Whole Blood Glucose 120H 06/17/20 20:58: POC Whole Blood Glucose 194H 06/18/20 06:15: White Blood Count 5.1, Red Blood Count 4.16L, Hemoglobin 11.6L, Hematocrit 37.7, Mean Corpuscular Volume 91, Mean Corpuscular Hemoglobin 27.9, Mean Corpuscular Hemoglobin Concent 30.8L, Red Cell Distribution Width 14.5, Platelet Count 333, Mean Platelet Volume 6.0L, Neutrophils (%) (Auto) 62.2, Lymphocytes (%) (Auto) 26.1, Monocytes (%) (Auto) 10.6H, Eosinophils (%) (Auto) 0.4, Basophils (%) (Auto) 0.7, Sodium Level 147H, Potassium Level 4.1, Chloride Level 108H, Carbon Dioxide Level 30, Anion Gap 10, Blood Urea Nitrogen 14, Creatinine 1.0, Estimat Glomerular Filtration Rate > 60, Glucose Level 37*L, Calcium Level 9.2, Phosphorus Level 4.3, Magnesium Level 2.0, Total Bilirubin < 0.1L, Direct Bilirubin 0.1, Aspartate Amino Transf (AST/SGOT) 34, Alanine Aminotransferase (ALT/SGPT) 42, Alkaline Phosphatase 60, Total Protein 5.9L, Albumin 2.4L 06/18/20 06:19: POC Whole Blood Glucose 42L 06/18/20 06:22: POC Whole Blood Glucose 44L 06/18/20 07:00: POC Whole Blood Glucose 68L 06/18/20 08:59: POC Whole Blood Glucose 172H 06/18/20 11:14: POC Whole Blood Glucose 211H Height (Feet): 5 Height (Inches): 8.00 Weight (Pounds): 200 General Appearance: no apparent distress Cardiovascular: normal rate Respiratory/Chest: decreased breath sounds Objective No change Melchor Reeves MD Jun 18, 2020 11:44
[2020-06-18 12:00] VITALS: BP 158/67
--- NOTE | 2020-06-18 12:56 | Internal Med Progress Note ---
Subjective Date of Service: Jun 18, 2020 Physician Name Isael Hutton Attending Physician Emre Trejo MD Current Medications Medications (Trade) Dose Ordered Sig/Hever Route PRN Reason Start Time Stop Time Status Last Admin Dose Admin Acetaminophen (Tylenol) 650 mg Q6H PRN ORAL Temp >100.5 06/11/20 10:45 07/11/20 10:44 Acetaminophen (Tylenol) 650 mg Q6H PRN ORAL Mild Pain (Pain Scale 1-3) 06/11/20 11:15 07/11/20 11:14 Albuterol Sulfate (Proventil MDI) 2 puff Q4H PRN INH Shortness of Breath 06/13/20 17:45 09/11/20 17:44 Aspirin (Ecotrin) 81 mg DAILY ORAL 06/12/20 09:00 07/27/20 08:59 06/18/20 09:17 Bethanechol Chloride (Urecholine) 10 mg THREE TIMES A DAY ORAL 06/11/20 18:00 07/11/20 17:59 06/18/20 09:17 Brimonidine Tartrate (Alphagan) 1 drop Q8HR RIGHT EYE 06/11/20 22:00 09/09/20 21:59 06/18/20 06:00 Dextrose (Dextrose 50%) 25 ml Q30M PRN IV Hypoglycemia 06/11/20 10:45 09/09/20 10:44 Dextrose (Dextrose 50%) 50 ml Q30M PRN IV Hypoglycemia 06/11/20 10:45 09/09/20 10:44 Docusate Sodium (Colace) 100 mg THREE TIMES A DAY ORAL 06/11/20 13:00 07/11/20 12:59 06/18/20 09:17 Enoxaparin Sodium (Lovenox) 40 mg DAILY SUBQ 06/12/20 09:00 09/10/20 08:59 06/18/20 09:19 Folic Acid (Folate) 2 mg DAILY ORAL 06/14/20 11:00 07/14/20 10:59 06/18/20 09:17 Guaifenesin (Robitussin) 100 mg Q6H PRN ORAL For Cough 06/12/20 17:30 09/10/20 17:29 06/13/20 04:10 Hydralazine HCl (Apresoline) 25 mg Q4H PRN ORAL BP over 160 systolic 06/16/20 13:30 09/14/20 13:29 06/17/20 12:16 Hydralazine HCl (Apresoline) 50 mg Q8HR ORAL 06/16/20 14:00 09/14/20 00:44 06/18/20 06:00 Insulin Aspart (NovoLOG Mix 70/ 30) 45 units QHS SUBQ 06/18/20 21:00 09/16/20 20:59 Insulin Aspart (NovoLOG Mix 70/ 30) 50 units DAILY SUBQ 06/18/20 09:00 09/09/20 20:59 Insulin Aspart (NovoLOG) BEFORE MEALS AND HS SUBQ 06/11/20 11:30 09/09/20 11:29 06/18/20 11:33 Nifedipine (Procardia XL) 30 mg DAILY ORAL 06/16/20 13:30 07/16/20 13:29 06/18/20 09:18 Ondansetron HCl (Zofran) 4 mg Q4H PRN IVP Nausea & Vomiting 06/11/20 10:45 07/11/20 10:44 Pantoprazole (Protonix) 40 mg EVERY 12 HOURS ORAL 06/16/20 21:00 07/16/20 20:59 06/18/20 09:17 Phosphorus (Phospha 250 Neutral) 250 mg THREE TIMES A DAY ORAL 06/14/20 11:00 07/14/20 10:59 06/18/20 09:17 Polyethylene Glycol (Miralax) 17 gm DAILY ORAL 06/18/20 09:00 07/18/20 08:59 06/18/20 09:16 Timolol Maleate (timoloL maleate 0.5% Op Soln) 1 drop TWICE A DAY BOTH EYES 06/11/20 18:00 07/11/20 17:59 06/18/20 09:20 Allergies: Coded Allergies: CODEINE (Verified Allergy, Mild, Itching, 08/26/13) SULFA (SULFONAMIDE ANTIBIOTICS) (Verified Adverse Reaction, Mild, 08/26/13) VOMIT ROS Limited/Unobtainable: No Constitutional: Reports: no symptoms HEENT: Reports: no symptoms Cardiovascular: Reports: no symptoms Respiratory: Reports: no symptoms Gastrointestinal/Abdominal: Reports: no symptoms Genitourinary: Reports: no symptoms Neurologic/Psychiatric: Reports: no symptoms Subjective 79 YO F admitted with abdominal pain. Now COVID 19 pneumonia. Cover for Int Quang-Dr Trejo. Labile glucose 44-211 Objective Last Vital Signs Date Time Temp Pulse Resp B/P (MAP) Pulse Ox O2 Delivery O2 Flow Rate FiO2 06/18/20 12:00 98.3 62 18 158/67 (97) 96 06/18/20 09:00 Room Air Laboratory Tests Test 06/17/20 16:32 06/17/20 17:07 06/17/20 18:13 06/17/20 20:58 POC Whole Blood Glucose Pending 60 MG/DL (74-106) L 120 MG/DL (74-106) H 194 MG/DL (74-106) H Test 06/18/20 06:15 06/18/20 06:19 06/18/20 06:22 06/18/20 07:00 White Blood Count 5.1 K/UL (4.8-10.8) Red Blood Count 4.16 M/UL (4.20-5.40) L Hemoglobin 11.6 G/DL (12.0-16.0) L Hematocrit 37.7 % (37.0-47.0) Mean Corpuscular Volume 91 FL (80-99) Mean Corpuscular Hemoglobin 27.9 PG (27.0-31.0) Mean Corpuscular Hemoglobin Concent 30.8 G/DL (32.0-36.0) L Red Cell Distribution Width 14.5 % (11.6-14.8) Platelet Count 333 K/UL (150-450) Mean Platelet Volume 6.0 FL (6.5-10.1) L Neutrophils (%) (Auto) 62.2 % (45.0-75.0) Lymphocytes (%) (Auto) 26.1 % (20.0-45.0) Monocytes (%) (Auto) 10.6 % (1.0-10.0) H Eosinophils (%) (Auto) 0.4 % (0.0-3.0) Basophils (%) (Auto) 0.7 % (0.0-2.0) Sodium Level 147 MMOL/L (136-145) H Potassium Level 4.1 MMOL/L (3.5-5.1) Chloride Level 108 MMOL/L (98-107) H Carbon Dioxide Level 30 MMOL/L (21-32) Anion Gap 10 mmol/L (5-15) Blood Urea Nitrogen 14 mg/dL (7-18) Creatinine 1.0 MG/DL (0.55-1.30) Estimat Glomerular Filtration Rate > 60 mL/min (>60) Glucose Level 37 MG/DL (74-106) *L Calcium Level 9.2 MG/DL (8.5-10.1) Phosphorus Level 4.3 MG/DL (2.5-4.9) Magnesium Level 2.0 MG/DL (1.8-2.4) Total Bilirubin < 0.1 MG/DL (0.2-1.0) L Direct Bilirubin 0.1 MG/DL (0.0-0.3) Aspartate Amino Transf (AST/SGOT) 34 U/L (15-37) Alanine Aminotransferase (ALT/SGPT) 42 U/L (12-78) Alkaline Phosphatase 60 U/L (46-116) Total Protein 5.9 G/DL (6.4-8.2) L Albumin 2.4 G/DL (3.4-5.0) L POC Whole Blood Glucose 42 MG/DL (74-106) L 44 MG/DL (74-106) L 68 MG/DL (74-106) L Test 06/18/20 08:59 06/18/20 11:14 POC Whole Blood Glucose 172 MG/DL (74-106) H 211 MG/DL (74-106) H Intake and Output 06/17/20 06/18/20 19:00 07:00 Intake Total 590 ml 360 ml Balance 590 ml 360 ml Intake Oral 480 ml IV Total 110 ml Other 360 ml # Voids 2 2 Objective PHYSICAL EXAMINATION: GENERAL: The patient is well-developed and well-nourished female, in moderate abdominal pain distress. HEENT: Eyes, pupils are equal and responsive to light and accommodation. Extraocular movements are intact. NECK: Supple without lymphadenopathy. CHEST: Lungs are clear to auscultation bilaterally without wheezes or rales. CARDIOVASCULAR: Regular rate. S1 and S2 are normal without murmurs, rubs, or gallops. ABDOMEN: Soft, nontender, nondistended. Positive bowel sounds. No evidence of hepatosplenomegaly. Currently, no rebound or guarding noted. EXTREMITIES: Negative for clubbing, cyanosis, or edema. RECTAL/GENITAL: Not performed. NEUROLOGIC: Cranial nerves II through XII are grossly intact without focal deficits. Motor strength is 5/5 bilaterally. Deep tendon reflexes are 2+ plantar. Assessment/Plan Assessment/Plan ASSESSMENT: This is a 79-year-old female. 1. COVID-19 positive. 2. Bilateral pneumonia. 3. Abdominal pain. 4. Diabetes type 2. 5. Hypertension. 6. Renal failure. 7. Glaucoma. 8. Urinary frequency. 9. Hypoglycemia TREATMENT: 1. COVID-19/bilateral pneumonia. An Infectious Disease consultation has been obtained with Dr. Ahuja . A Pulmonary consultation has been obtained with Dr. Ulola. Follow recommendations of Pulmonary and Infectious Diseases. ABX=S/P ceftriaxone. continue Decadron day #3 2. Abdominal pain, this may be secondary to COVID-19. The patient is currently requesting morphine for abdominal pain. A urine culture is pending. 3. Diabetes type 2. decrease 70/30 insulin. continue NovoLog sliding scale 4. Hypertension. The patient is currently receiving p.r.n. hydralazine. 5. Renal failure. Nephrology consultation has been obtained with Dr. Reeves. 6. Glaucoma. Continue eye drops as above. Isael Hutton MD Jun 18, 2020 12:56
[2020-06-18 16:00] VITALS: BP 153/71
--- NOTE | 2020-06-18 19:29 | NUR ---
NURSE HAND-OFF: Important Events on Shift:[hypoglycemic event 37, asymptomatic; fall risk ] Patient Status: [stable] Diet: [[facility] cardiac ] Pending Orders: [] Pending Results/Labs:[] Pending MD notification:[] Latest Vital Signs: Temperature 97.2 , Pulse 68 , B/P 153 /71 , Respiratory Rate 18 , O2 SAT 98 , Room Air, O2 Flow Rate . Vital Sign Comment: [] Latest Rangel Fall Score: 85 Fall Risk: High Risk Safety Measures: Call light Within Reach, Bed Alarm Zone 1, Side Rails Side Rails x3, Bed position Low and Locked. Fall Precautions: Yellow Socks Yellow Gown Door Sign Patient Fall Education Report given to [Hermelindo RN ].
--- NOTE | 2020-06-18 19:30 | NUR ---
NURSE NOTES: The patient is alert and oriented x4, cooperative with her care and does 't appear to be in any active distress at this time.The patient is capable of self re-positioning herself with little or no support needed. She has a Right FA 24g saline locked that is patent and asymptomatic.The bed in lowest level with call light within easy reach, siderails up x2. Will continue to monitor as indicated.
[2020-06-18 20:00] VITALS: BP 129/57
[2020-06-19] VITALS: BP 134/58
[2020-06-19 04:00] VITALS: BP 132/82
[2020-06-19] MEDS: HydrALAZINE 50mg tab ORAL SCH ×2 (06:00→12:29)
[2020-06-19] MEDS: Brimonidine 0.2% Opth Sol RIGHT EYE SCH ×2 (06:20→12:29)
[2020-06-19] MEDS: NovoLOG Insulin Flexpen SUBQ SCH ×3 (06:24→16:34)
[2020-06-19 06:44] LABS: BASOPHILS % (AUTO) 6.1 % (0.0-2.0); EOSINOPHILS % (AUTO) 0.9 % (0.0-3.0); HEMATOCRIT 32.9 % (37.0-47.0); HEMOGLOBIN 10.2 G/DL (12.0-16.0); LYMPHOCYTES % (AUTO) 29.8 % (20.0-45.0); MEAN CORPUSCULAR VOLUME 90 FL (80-99); MONOCYTES % (AUTO) 18.8 % (1.0-10.0); NEUTROPHILS % (AUTO) 44.4 % (45.0-75.0); PLATELET COUNT 259 K/UL (150-450); RED BLOOD COUNT 3.65 M/UL (4.20-5.40); RED CELL DISTRIBUTION WIDTH 14.7 % (11.6-14.8)
--- NOTE | 2020-06-19 07:10 | NUR ---
NURSE HAND-OFF: Important Events on Shift: Patient Status: Diet: Pending Orders: Pending Results/Labs: Pending MD notification: Latest Vital Signs: Temperature 98.2 , Pulse 76 , B/P 132 /82 , Respiratory Rate 16 , O2 SAT 94 , Room Air, O2 Flow Rate . Vital Sign Comment: Latest Rangel Fall Score: 85 Fall Risk: High Risk Safety Measures: Call light Within Reach, Bed Alarm Zone 1, Side Rails Side Rails x3, Bed position Low and Locked. Fall Precautions: Yellow Socks Yellow Gown Door Sign Patient Fall Education Report given to .
[2020-06-19 07:50] LABS: ANION GAP 7 mmol/L (5-15); CALCIUM 8.6 MG/DL (8.5-10.1); CARBON DIOXIDE 28 MMOL/L (21-32); CHLORIDE 106 MMOL/L (98-107); CREATININE 0.7 MG/DL (0.55-1.30); POTASSIUM 4.3 MMOL/L (3.5-5.1); SODIUM 141 MMOL/L (136-145)
--- NOTE | 2020-06-19 08:00 | NUR ---
NURSE NOTES: 06/19/20 Received report Hermelindo RN, patient a/a/o x 4 laying in bed with no signs of distress or other issues at this time. patient is able to verbalize needed. patient is in RA. skin intact. per report patient is able to ambulate with steady gait. IV on the right FA gauge#24 HL. call light within reach, bed in lowest position. side rales up. I will f/u as needed. plan: possible d/c today - Dr. Duncan cleared patient to d/c.
[2020-06-19 08:08] LABS: BLOOD UREA NITROGEN 12 mg/dL (7-18)
--- NOTE | 2020-06-19 08:26 | Infectious Diseases Prog Note ---
Assessment/Plan 79yo F with: COVID+ Doing well on RA Normal WBC 06/11 COVID rapid positive CXR: Multifocal lung parenchymal opacities are better seen on the recent CT abdomen pelvis, new since prior CT from 03/16/2020. There is a hiatal hernia also better seen on the recent CT abdomen pelvis. R/o UTI Vaginal yeast infection, SP tx 06/11 UA+, UCx +yeast Cr 1.4 Abd pain x1 week, prompting pt to come to ED 06/11 CT A/P: Prominent bilateral groundglass opacities of the visualized thorax. Postsurgical clips are seen in the region of the second portion of the duodenum. High density localized to the first portion of the duodenum, image 39 series 3, is nonspecific and may represent focal blood products. Prominent soft tissue thickening is noted at the rectum near the anal verge. Stable soft tissue infiltrative changes are noted along the anterior superficial soft tissues. A nonspecific indeterminate right posterior perihepatic nodule measuring 0.6 cm is stable. HTN Plan: Monitor off abx OK to d/c home from ID standpoint Needs COVID isolation through 06/21 06/18 SP CTX #7 for UTI 06/11 & 06/15 SP fluconazole 150mg for vaginal yeast infection Not candidate for remdesivir nor steroids given doing well on RA This hospital does not have access to convalescent plasma, and pt doing well on RA so not candidate for it anyways Monitor CBC/CMP Monitor resp status Monitor temp curve, hemodynamics D/w RN Thank you for this consult. [facility] will continue to follow. Subjective Allergies: Coded Allergies: CODEINE (Verified Allergy, Mild, Itching, 08/26/13) SULFA (SULFONAMIDE ANTIBIOTICS) (Verified Adverse Reaction, Mild, 08/26/13) VOMIT AF NAD on RA satting well WBC 4.0 Plan to go home today, her granddaughter who has had COVID in the past will take care of her She is overall feeling improved, just some constipation, weakness improving Objective Last 24 Hour Vital Signs Date Time Temp Pulse Resp B/P (MAP) Pulse Ox O2 Delivery O2 Flow Rate FiO2 06/19/20 06:00 132/82 06/19/20 04:00 98.2 76 16 132/82 (99) 94 06/19/20 00:00 98.0 65 16 134/58 (83) 94 06/18/20 21:27 148/70 06/18/20 21:00 Room Air 06/18/20 20:00 97.8 61 17 129/57 (81) 96 06/18/20 17:24 Room Air 06/18/20 16:00 97.2 68 18 153/71 (98) 98 06/18/20 13:11 158/67 06/18/20 12:00 98.3 62 18 158/67 (97) 96 06/18/20 09:18 82 176/64 06/18/20 09:00 Room Air Height (Feet): 5 Height (Inches): 8.00 Weight (Pounds): 200 Gen: NAD HEENT: NCAT Pulm: BL chest rise on RA, non-labored Abd: Soft, NTND Ext: No c/c/e Skin: No visible rashes Neuro: Awake, alert, interactive Laboratory Tests Test 06/18/20 08:59 06/18/20 11:14 06/18/20 16:09 06/18/20 21:26 POC Whole Blood Glucose 172 MG/DL (74-106) H 211 MG/DL (74-106) H 173 MG/DL (74-106) H 181 MG/DL (74-106) H Test 06/19/20 05:30 06/19/20 06:15 White Blood Count 4.0 K/UL (4.8-10.8) L Red Blood Count 3.65 M/UL (4.20-5.40) L Hemoglobin 10.2 G/DL (12.0-16.0) L Hematocrit 32.9 % (37.0-47.0) L Mean Corpuscular Volume 90 FL (80-99) Mean Corpuscular Hemoglobin 27.8 PG (27.0-31.0) Mean Corpuscular Hemoglobin Concent 30.9 G/DL (32.0-36.0) L Red Cell Distribution Width 14.7 % (11.6-14.8) Platelet Count 259 K/UL (150-450) Mean Platelet Volume 6.4 FL (6.5-10.1) L Neutrophils (%) (Auto) 44.4 % (45.0-75.0) L Lymphocytes (%) (Auto) 29.8 % (20.0-45.0) Monocytes (%) (Auto) 18.8 % (1.0-10.0) H Eosinophils (%) (Auto) 0.9 % (0.0-3.0) Basophils (%) (Auto) 6.1 % (0.0-2.0) H Sodium Level 141 MMOL/L (136-145) Potassium Level 4.3 MMOL/L (3.5-5.1) Chloride Level 106 MMOL/L (98-107) Carbon Dioxide Level 28 MMOL/L (21-32) Anion Gap 7 mmol/L (5-15) Blood Urea Nitrogen 12 mg/dL (7-18) Creatinine 0.7 MG/DL (0.55-1.30) Estimat Glomerular Filtration Rate > 60 mL/min (>60) Glucose Level 170 MG/DL (74-106) #H Calcium Level 8.6 MG/DL (8.5-10.1) POC Whole Blood Glucose 164 MG/DL (74-106) H Current Medications Medications (Trade) Dose Ordered Sig/Hever Route PRN Reason Start Time Stop Time Status Last Admin Dose Admin Acetaminophen (Tylenol) 650 mg Q6H PRN ORAL Temp >100.5 06/11/20 10:45 07/11/20 10:44 06/18/20 16:31 Acetaminophen (Tylenol) 650 mg Q6H PRN ORAL Mild Pain (Pain Scale 1-3) 06/11/20 11:15 07/11/20 11:14 Albuterol Sulfate (Proventil MDI) 2 puff Q4H PRN INH Shortness of Breath 06/13/20 17:45 09/11/20 17:44 Aspirin (Ecotrin) 81 mg DAILY ORAL 06/12/20 09:00 07/27/20 08:59 06/18/20 09:17 Bethanechol Chloride (Urecholine) 10 mg THREE TIMES A DAY ORAL 06/11/20 18:00 07/11/20 17:59 06/18/20 17:03 Brimonidine Tartrate (Alphagan) 1 drop Q8HR RIGHT EYE 06/11/20 22:00 09/09/20 21:59 06/19/20 06:20 Dextrose (Dextrose 50%) 25 ml Q30M PRN IV Hypoglycemia 06/11/20 10:45 09/09/20 10:44 Dextrose (Dextrose 50%) 50 ml Q30M PRN IV Hypoglycemia 06/11/20 10:45 09/09/20 10:44 Docusate Sodium (Colace) 100 mg THREE TIMES A DAY ORAL 06/11/20 13:00 07/11/20 12:59 06/18/20 17:03 Enoxaparin Sodium (Lovenox) 40 mg DAILY SUBQ 06/12/20 09:00 09/10/20 08:59 06/18/20 09:19 Folic Acid (Folate) 2 mg DAILY ORAL 06/14/20 11:00 07/14/20 10:59 06/18/20 09:17 Guaifenesin (Robitussin) 100 mg Q6H PRN ORAL For Cough 06/12/20 17:30 09/10/20 17:29 06/13/20 04:10 Hydralazine HCl (Apresoline) 25 mg Q4H PRN ORAL BP over 160 systolic 06/16/20 13:30 09/14/20 13:29 06/17/20 12:16 Hydralazine HCl (Apresoline) 50 mg Q8HR ORAL 06/16/20 14:00 09/14/20 00:44 06/18/20 21:27 Insulin Aspart (NovoLOG Mix 70/ 30) 45 units QHS SUBQ 06/18/20 21:00 09/16/20 20:59 06/18/20 21:41 Insulin Aspart (NovoLOG Mix 70/ 30) 50 units DAILY SUBQ 06/18/20 09:00 09/09/20 20:59 Insulin Aspart (NovoLOG) BEFORE MEALS AND HS SUBQ 06/11/20 11:30 09/09/20 11:29 06/19/20 06:24 Nifedipine (Procardia XL) 30 mg DAILY ORAL 06/16/20 13:30 07/16/20 13:29 06/18/20 09:18 Ondansetron HCl (Zofran) 4 mg Q4H PRN IVP Nausea & Vomiting 06/11/20 10:45 07/11/20 10:44 Pantoprazole (Protonix) 40 mg EVERY 12 HOURS ORAL 06/16/20 21:00 07/16/20 20:59 06/18/20 21:27 Phosphorus (Phospha 250 Neutral) 250 mg THREE TIMES A DAY ORAL 06/14/20 11:00 07/14/20 10:59 06/18/20 17:03 Polyethylene Glycol (Miralax) 17 gm DAILY ORAL 06/18/20 09:00 07/18/20 08:59 06/18/20 09:16 Timolol Maleate (timoloL maleate 0.5% Op Soln) 1 drop TWICE A DAY BOTH EYES 06/11/20 18:00 07/11/20 17:59 06/18/20 17:05 Milagro Ahuja M.D. Jun 19, 2020 08:26
--- NOTE | 2020-06-19 08:37 | Pulmonology Progress Note ---
Subjective ROS Limited/Unobtainable: No Allergies: Coded Allergies: CODEINE (Verified Allergy, Mild, Itching, 08/26/13) SULFA (SULFONAMIDE ANTIBIOTICS) (Verified Adverse Reaction, Mild, 08/26/13) VOMIT Subjective AFVSS on RA No F/C, no cough, no SOB, no wheezing, no CP Tired Objective Last 24 Hour Vital Signs Date Time Temp Pulse Resp B/P (MAP) Pulse Ox O2 Delivery O2 Flow Rate FiO2 06/19/20 06:00 132/82 06/19/20 04:00 98.2 76 16 132/82 (99) 94 06/19/20 00:00 98.0 65 16 134/58 (83) 94 06/18/20 21:27 148/70 06/18/20 21:00 Room Air 06/18/20 20:00 97.8 61 17 129/57 (81) 96 06/18/20 17:24 Room Air 06/18/20 16:00 97.2 68 18 153/71 (98) 98 06/18/20 13:11 158/67 06/18/20 12:00 98.3 62 18 158/67 (97) 96 06/18/20 09:18 82 176/64 06/18/20 09:00 Room Air Intake and Output 06/18/20 06/19/20 19:00 07:00 Intake Total 960 ml 810 ml Balance 960 ml 810 ml Intake Oral 960 ml 450 ml Other 360 ml # Voids 2 2 General Appearance: no acute distress HEENT: normocephalic, atraumatic, anicteric, mucous membranes moist Respiratory: lungs clear, no respiratory distress, no accessory muscle use Cardiovascular: normal rate, regular rhythm Abdomen: soft, non tender, non distended Extremities: no edema, pedal pulses normal Neurologic: no motor/sensory deficits, alert, responsive Musculoskeletal: normal muscle bulk Laboratory Tests 06/18/20 08:59: POC Whole Blood Glucose 172H 06/18/20 11:14: POC Whole Blood Glucose 211H 06/18/20 16:09: POC Whole Blood Glucose 173H 06/18/20 21:26: POC Whole Blood Glucose 181H 06/19/20 05:30: White Blood Count 4.0L, Red Blood Count 3.65L, Hemoglobin 10.2L, Hematocrit 32.9L, Mean Corpuscular Volume 90, Mean Corpuscular Hemoglobin 27.8, Mean Corpuscular Hemoglobin Concent 30.9L, Red Cell Distribution Width 14.7, Platelet Count 259, Mean Platelet Volume 6.4L, Neutrophils (%) (Auto) 44.4L, Lymphocytes (%) (Auto) 29.8, Monocytes (%) (Auto) 18.8H, Eosinophils (%) (Auto) 0.9, Basophils (%) (Auto) 6.1H, Sodium Level 141, Potassium Level 4.3, Chloride Level 106, Carbon Dioxide Level 28, Anion Gap 7, Blood Urea Nitrogen 12, Creatinine 0.7, Estimat Glomerular Filtration Rate > 60, Glucose Level 170#H, Calcium Level 8.6 06/19/20 06:15: POC Whole Blood Glucose 164H Current Medications Medications (Trade) Dose Ordered Sig/Hever Route PRN Reason Start Time Stop Time Status Last Admin Dose Admin Acetaminophen (Tylenol) 650 mg Q6H PRN ORAL Temp >100.5 06/11/20 10:45 07/11/20 10:44 06/18/20 16:31 Acetaminophen (Tylenol) 650 mg Q6H PRN ORAL Mild Pain (Pain Scale 1-3) 06/11/20 11:15 07/11/20 11:14 Albuterol Sulfate (Proventil MDI) 2 puff Q4H PRN INH Shortness of Breath 06/13/20 17:45 09/11/20 17:44 Aspirin (Ecotrin) 81 mg DAILY ORAL 06/12/20 09:00 07/27/20 08:59 06/18/20 09:17 Bethanechol Chloride (Urecholine) 10 mg THREE TIMES A DAY ORAL 06/11/20 18:00 07/11/20 17:59 06/18/20 17:03 Brimonidine Tartrate (Alphagan) 1 drop Q8HR RIGHT EYE 06/11/20 22:00 09/09/20 21:59 06/19/20 06:20 Dextrose (Dextrose 50%) 25 ml Q30M PRN IV Hypoglycemia 06/11/20 10:45 09/09/20 10:44 Dextrose (Dextrose 50%) 50 ml Q30M PRN IV Hypoglycemia 06/11/20 10:45 09/09/20 10:44 Docusate Sodium (Colace) 100 mg THREE TIMES A DAY ORAL 06/11/20 13:00 07/11/20 12:59 06/18/20 17:03 Enoxaparin Sodium (Lovenox) 40 mg DAILY SUBQ 06/12/20 09:00 09/10/20 08:59 06/18/20 09:19 Folic Acid (Folate) 2 mg DAILY ORAL 06/14/20 11:00 07/14/20 10:59 06/18/20 09:17 Guaifenesin (Robitussin) 100 mg Q6H PRN ORAL For Cough 06/12/20 17:30 09/10/20 17:29 06/13/20 04:10 Hydralazine HCl (Apresoline) 25 mg Q4H PRN ORAL BP over 160 systolic 06/16/20 13:30 09/14/20 13:29 06/17/20 12:16 Hydralazine HCl (Apresoline) 50 mg Q8HR ORAL 06/16/20 14:00 09/14/20 00:44 06/18/20 21:27 Insulin Aspart (NovoLOG Mix 70/ 30) 45 units QHS SUBQ 06/18/20 21:00 09/16/20 20:59 06/18/20 21:41 Insulin Aspart (NovoLOG Mix 70/ 30) 50 units DAILY SUBQ 06/18/20 09:00 09/09/20 20:59 Insulin Aspart (NovoLOG) BEFORE MEALS AND HS SUBQ 06/11/20 11:30 09/09/20 11:29 06/19/20 06:24 Nifedipine (Procardia XL) 30 mg DAILY ORAL 06/16/20 13:30 07/16/20 13:29 06/18/20 09:18 Ondansetron HCl (Zofran) 4 mg Q4H PRN IVP Nausea & Vomiting 06/11/20 10:45 07/11/20 10:44 Pantoprazole (Protonix) 40 mg EVERY 12 HOURS ORAL 06/16/20 21:00 07/16/20 20:59 06/18/20 21:27 Phosphorus (Phospha 250 Neutral) 250 mg THREE TIMES A DAY ORAL 06/14/20 11:00 07/14/20 10:59 06/18/20 17:03 Polyethylene Glycol (Miralax) 17 gm DAILY ORAL 06/18/20 09:00 07/18/20 08:59 06/18/20 09:16 Timolol Maleate (timoloL maleate 0.5% Op Soln) 1 drop TWICE A DAY BOTH EYES 06/11/20 18:00 07/11/20 17:59 06/18/20 17:05 Assessment/Plan Problems: (1) Elevated d-dimer Assessment & Plan: S/P neg DUPLEX (2) Hypoxemia Assessment & Plan: RESOLVED (3) UTI (urinary tract infection) (4) Pneumonia due to COVID-19 virus (5) Abdominal pain (6) Diabetes mellitus type II, uncontrolled (7) Hypertension Assessment/Plan Optimize pulmonary hygiene/mobilize as tolerated PRN O2 DEX: Off REM: not given 2/2 stable oxygenation ABX: off per ID Monitor inflammatory markers Monitor volumes and renal functios DVT Px: LMWH --> would D/C home on Xarelto 10 mg PO qDaily to complete 30 days FC Dispo planning. Ok to D/C home from a pulmonary standpoint. Bradley Ulloa MD Jun 19, 2020 08:37
[2020-06-19 09:00] VITALS: BP 140/90
--- NOTE | 2020-06-19 09:40 | Nephrology Progress Note ---
Assessment/Plan Problem List: (1) MITZI (acute kidney injury) (2) Diabetes mellitus type II, uncontrolled (3) Hypertension (4) Pneumonia due to COVID-19 virus Assessment Renal failure, most likely acute on chronic Abdominal pain, etiology to be determined Pneumonia due to COVID-19 19 virus Hypertension Hyperglycemia Plan June 19: Labs reviewed. Renal parameters stable. Blood sugar high 150s. Continue current management. June 18: Labs reviewed. Renal parameters stable. Low blood sugar noted. Continue per stained glass painter. June 17: No CHEM panel drawn today. Blood pressure stable. Medication list reviewed. Continue per consultants. June 16: Labs reviewed. Renal parameters stable. Blood pressure under control. Blood pressure medication adjusted. Monitor bradycardia. Per orders. June 15: Labs reviewed. Renal parameters stable. Continue per consultants. Medication list reviewed. June 14: Labs reviewed. Renal parameters stable. Low phosphorus addressed. Folic acid supplement given. Continue per consultants. June 13: Renal parameters are stable. Continue to monitor electrolytes. Medication list reviewed. Anemia work-up initiated. June 12: Today's labs pending. Normal saline 50 cc an hour started. Continue per client experience consultant. Further comments after checking the labs. Patient started on dexamethasone Lovenox and antibiotics We will monitor renal parameters and blood sugar IV Protonix given Anemia work-up Urine analysis and urine studies Avoid nephrotoxic's Per orders Subjective ROS Limited/Unobtainable: No Constitutional: Reports: malaise, weakness Objective Objective Last 24 Hour Vital Signs Date Time Temp Pulse Resp B/P (MAP) Pulse Ox O2 Delivery O2 Flow Rate FiO2 06/19/20 06:00 132/82 06/19/20 04:00 98.2 76 16 132/82 (99) 94 06/19/20 00:00 98.0 65 16 134/58 (83) 94 06/18/20 21:27 148/70 06/18/20 21:00 Room Air 06/18/20 20:00 97.8 61 17 129/57 (81) 96 06/18/20 17:24 Room Air 06/18/20 16:00 97.2 68 18 153/71 (98) 98 06/18/20 13:11 158/67 06/18/20 12:00 98.3 62 18 158/67 (97) 96 Intake and Output 06/18/20 06/19/20 19:00 07:00 Intake Total 960 ml 810 ml Balance 960 ml 810 ml Intake Oral 960 ml 450 ml Other 360 ml # Voids 2 2 Current Medications Medications (Trade) Dose Ordered Sig/Hever Route PRN Reason Start Time Stop Time Status Last Admin Dose Admin Acetaminophen (Tylenol) 650 mg Q6H PRN ORAL Temp >100.5 06/11/20 10:45 07/11/20 10:44 06/18/20 16:31 Acetaminophen (Tylenol) 650 mg Q6H PRN ORAL Mild Pain (Pain Scale 1-3) 06/11/20 11:15 07/11/20 11:14 Albuterol Sulfate (Proventil MDI) 2 puff Q4H PRN INH Shortness of Breath 06/13/20 17:45 09/11/20 17:44 Aspirin (Ecotrin) 81 mg DAILY ORAL 06/12/20 09:00 07/27/20 08:59 06/18/20 09:17 Bethanechol Chloride (Urecholine) 10 mg THREE TIMES A DAY ORAL 06/11/20 18:00 07/11/20 17:59 06/18/20 17:03 Brimonidine Tartrate (Alphagan) 1 drop Q8HR RIGHT EYE 06/11/20 22:00 09/09/20 21:59 06/19/20 06:20 Dextrose (Dextrose 50%) 25 ml Q30M PRN IV Hypoglycemia 06/11/20 10:45 09/09/20 10:44 Dextrose (Dextrose 50%) 50 ml Q30M PRN IV Hypoglycemia 06/11/20 10:45 09/09/20 10:44 Docusate Sodium (Colace) 100 mg THREE TIMES A DAY ORAL 06/11/20 13:00 07/11/20 12:59 06/18/20 17:03 Enoxaparin Sodium (Lovenox) 40 mg DAILY SUBQ 06/12/20 09:00 09/10/20 08:59 06/18/20 09:19 Folic Acid (Folate) 2 mg DAILY ORAL 06/14/20 11:00 07/14/20 10:59 06/18/20 09:17 Guaifenesin (Robitussin) 100 mg Q6H PRN ORAL For Cough 06/12/20 17:30 09/10/20 17:29 06/13/20 04:10 Hydralazine HCl (Apresoline) 25 mg Q4H PRN ORAL BP over 160 systolic 06/16/20 13:30 09/14/20 13:29 06/17/20 12:16 Hydralazine HCl (Apresoline) 50 mg Q8HR ORAL 06/16/20 14:00 09/14/20 00:44 06/18/20 21:27 Insulin Aspart (NovoLOG Mix 70/ 30) 45 units QHS SUBQ 06/18/20 21:00 09/16/20 20:59 06/18/20 21:41 Insulin Aspart (NovoLOG Mix 70/ 30) 50 units DAILY SUBQ 06/18/20 09:00 09/09/20 20:59 Insulin Aspart (NovoLOG) BEFORE MEALS AND HS SUBQ 06/11/20 11:30 09/09/20 11:29 06/19/20 06:24 Nifedipine (Procardia XL) 30 mg DAILY ORAL 06/16/20 13:30 07/16/20 13:29 06/18/20 09:18 Ondansetron HCl (Zofran) 4 mg Q4H PRN IVP Nausea & Vomiting 06/11/20 10:45 07/11/20 10:44 Pantoprazole (Protonix) 40 mg EVERY 12 HOURS ORAL 06/16/20 21:00 07/16/20 20:59 06/18/20 21:27 Phosphorus (Phospha 250 Neutral) 250 mg THREE TIMES A DAY ORAL 06/14/20 11:00 07/14/20 10:59 06/18/20 17:03 Polyethylene Glycol (Miralax) 17 gm DAILY ORAL 06/18/20 09:00 07/18/20 08:59 06/18/20 09:16 Timolol Maleate (timoloL maleate 0.5% Op Soln) 1 drop TWICE A DAY BOTH EYES 06/11/20 18:00 07/11/20 17:59 06/18/20 17:05 Laboratory Tests 06/18/20 11:14: POC Whole Blood Glucose 211H 06/18/20 16:09: POC Whole Blood Glucose 173H 06/18/20 21:26: POC Whole Blood Glucose 181H 06/19/20 05:30: White Blood Count 4.0L, Red Blood Count 3.65L, Hemoglobin 10.2L, Hematocrit 32.9L, Mean Corpuscular Volume 90, Mean Corpuscular Hemoglobin 27.8, Mean Corpuscular Hemoglobin Concent 30.9L, Red Cell Distribution Width 14.7, Platelet Count 259, Mean Platelet Volume 6.4L, Neutrophils (%) (Auto) 44.4L, Lymphocytes (%) (Auto) 29.8, Monocytes (%) (Auto) 18.8H, Eosinophils (%) (Auto) 0.9, Basophils (%) (Auto) 6.1H, Sodium Level 141, Potassium Level 4.3, Chloride Level 106, Carbon Dioxide Level 28, Anion Gap 7, Blood Urea Nitrogen 12, Creatinine 0.7, Estimat Glomerular Filtration Rate > 60, Glucose Level 170#H, Calcium Level 8.6 06/19/20 06:15: POC Whole Blood Glucose 164H Height (Feet): 5 Height (Inches): 8.00 Weight (Pounds): 200 General Appearance: no apparent distress Cardiovascular: normal rate Respiratory/Chest: decreased breath sounds Abdomen: soft Objective No change Melchor Reeves MD Jun 19, 2020 09:40
[2020-06-19] MEDS: Bethanechol 10mg Tab ORAL SCH ×3 (09:59→17:01)
[2020-06-19] MEDS: Docusate 100mg cap ORAL SCH ×3 (09:59→17:01)
[2020-06-19] MEDS: Miralax 17gm pkt ORAL SCH (09:59)
[2020-06-19] MEDS: Phospha 250 Neutral tab ORAL SCH ×3 (10:03→17:01)
[2020-06-19] MEDS: Aspirin EC 81mg tab ORAL SCH (10:04)
[2020-06-19] MEDS: timoloL maleate 0.5% Op Soln 2.5ml BOTH EYES SCH ×2 (10:04→17:01)
[2020-06-19] MEDS: Enoxaparin 40mg Inj SUBQ SCH (10:05)
--- NOTE | 2020-06-19 11:21 | NUR ---
CASE MANAGEMENT:REVIEW 06/19/20 SI:BILATERAL COVID PNA 98.2 76 16 132/82 94% ON RA WBC-4.0 H/H-10.2 GLUCOSE+170 IS: INSULIN ASPART 45U QHS INSULIN ASPART 50 U QD SS INSULIN AC+HS PROTONIX PO Q12 HYDRALAZINE PO Q8HRS PROCARDIA PO QD PHOSPHORUS PO TID ASA PO QD LOVENOX SQ QD : MED/SURG STATUS 4 EAST DCP: FROM HOME
[2020-06-19 12:00] VITALS: BP 154/94
[2020-06-19 16:00] VITALS: BP 160/73
[2020-06-19] MEDS ORDERED: ASPIRIN EC81 MG ORAL (18:47)
--- NOTE | 2020-06-19 18:48 | Internal Med Progress Note ---
Subjective Date of Service: Jun 19, 2020 Physician Name Isael Hutton Attending Physician Emre Trejo MD Current Medications Medications (Trade) Dose Ordered Sig/Hever Route PRN Reason Start Time Stop Time Status Last Admin Dose Admin Acetaminophen (Tylenol) 650 mg Q6H PRN ORAL Temp >100.5 06/11/20 10:45 07/11/20 10:44 06/19/20 10:11 Acetaminophen (Tylenol) 650 mg Q6H PRN ORAL Mild Pain (Pain Scale 1-3) 06/11/20 11:15 07/11/20 11:14 Albuterol Sulfate (Proventil JACINTO) 2 puff Q4H PRN INH Shortness of Breath 06/13/20 17:45 09/11/20 17:44 Aspirin (Ecotrin) 81 mg DAILY ORAL 06/12/20 09:00 07/27/20 08:59 06/19/20 10:04 Bethanechol Chloride (Urecholine) 10 mg THREE TIMES A DAY ORAL 06/11/20 18:00 07/11/20 17:59 06/19/20 17:01 Brimonidine Tartrate (Alphagan) 1 drop Q8HR RIGHT EYE 06/11/20 22:00 09/09/20 21:59 06/19/20 12:29 Dextrose (Dextrose 50%) 25 ml Q30M PRN IV Hypoglycemia 06/11/20 10:45 09/09/20 10:44 Dextrose (Dextrose 50%) 50 ml Q30M PRN IV Hypoglycemia 06/11/20 10:45 09/09/20 10:44 Docusate Sodium (Colace) 100 mg THREE TIMES A DAY ORAL 06/11/20 13:00 07/11/20 12:59 06/19/20 17:01 Enoxaparin Sodium (Lovenox) 40 mg DAILY SUBQ 06/12/20 09:00 09/10/20 08:59 06/19/20 10:05 Folic Acid (Folate) 2 mg DAILY ORAL 06/14/20 11:00 07/14/20 10:59 06/19/20 10:04 Guaifenesin (Robitussin) 100 mg Q6H PRN ORAL For Cough 06/12/20 17:30 09/10/20 17:29 06/13/20 04:10 Hydralazine HCl (Apresoline) 25 mg Q4H PRN ORAL BP over 160 systolic 06/16/20 13:30 09/14/20 13:29 06/17/20 12:16 Hydralazine HCl (Apresoline) 50 mg Q8HR ORAL 06/16/20 14:00 09/14/20 00:44 06/19/20 12:29 Insulin Aspart (NovoLOG Mix 70/ 30) 45 units QHS SUBQ 06/18/20 21:00 09/16/20 20:59 06/18/20 21:41 Insulin Aspart (NovoLOG Mix 70/ 30) 50 units DAILY SUBQ 06/18/20 09:00 09/09/20 20:59 06/19/20 10:35 Insulin Aspart (NovoLOG) BEFORE MEALS AND HS SUBQ 06/11/20 11:30 09/09/20 11:29 06/19/20 16:34 Nifedipine (Procardia XL) 30 mg DAILY ORAL 06/16/20 13:30 07/16/20 13:29 06/19/20 10:03 Ondansetron HCl (Zofran) 4 mg Q4H PRN IVP Nausea & Vomiting 06/11/20 10:45 07/11/20 10:44 Pantoprazole (Protonix) 40 mg EVERY 12 HOURS ORAL 06/16/20 21:00 07/16/20 20:59 06/19/20 10:04 Phosphorus (Phospha 250 Neutral) 250 mg THREE TIMES A DAY ORAL 06/14/20 11:00 07/14/20 10:59 06/19/20 17:01 Polyethylene Glycol (Miralax) 17 gm DAILY ORAL 06/18/20 09:00 07/18/20 08:59 06/19/20 09:59 Timolol Maleate (timoloL maleate 0.5% Op Soln) 1 drop TWICE A DAY BOTH EYES 06/11/20 18:00 07/11/20 17:59 06/19/20 17:01 Allergies: Coded Allergies: CODEINE (Verified Allergy, Mild, Itching, 08/26/13) SULFA (SULFONAMIDE ANTIBIOTICS) (Verified Adverse Reaction, Mild, 08/26/13) VOMIT ROS Limited/Unobtainable: No Constitutional: Reports: no symptoms HEENT: Reports: no symptoms Cardiovascular: Reports: no symptoms Respiratory: Reports: no symptoms Gastrointestinal/Abdominal: Reports: no symptoms Genitourinary: Reports: no symptoms Neurologic/Psychiatric: Reports: no symptoms Subjective 79 YO F admitted with abdominal pain. Now COVID 19 pneumonia. Cover for Int Quang-Dr Trejo. Labile glucose 44-211 Objective Last Vital Signs Date Time Temp Pulse Resp B/P (MAP) Pulse Ox O2 Delivery O2 Flow Rate FiO2 06/19/20 17:30 Room Air 06/19/20 16:00 98.5 68 20 160/73 (102) 96 Laboratory Tests Test 06/18/20 21:26 06/19/20 05:30 06/19/20 06:15 06/19/20 12:05 POC Whole Blood Glucose 181 MG/DL (74-106) H 164 MG/DL (74-106) H 242 MG/DL (74-106) H White Blood Count 4.0 K/UL (4.8-10.8) L Red Blood Count 3.65 M/UL (4.20-5.40) L Hemoglobin 10.2 G/DL (12.0-16.0) L Hematocrit 32.9 % (37.0-47.0) L Mean Corpuscular Volume 90 FL (80-99) Mean Corpuscular Hemoglobin 27.8 PG (27.0-31.0) Mean Corpuscular Hemoglobin Concent 30.9 G/DL (32.0-36.0) L Red Cell Distribution Width 14.7 % (11.6-14.8) Platelet Count 259 K/UL (150-450) Mean Platelet Volume 6.4 FL (6.5-10.1) L Neutrophils (%) (Auto) 44.4 % (45.0-75.0) L Lymphocytes (%) (Auto) 29.8 % (20.0-45.0) Monocytes (%) (Auto) 18.8 % (1.0-10.0) H Eosinophils (%) (Auto) 0.9 % (0.0-3.0) Basophils (%) (Auto) 6.1 % (0.0-2.0) H Sodium Level 141 MMOL/L (136-145) Potassium Level 4.3 MMOL/L (3.5-5.1) Chloride Level 106 MMOL/L (98-107) Carbon Dioxide Level 28 MMOL/L (21-32) Anion Gap 7 mmol/L (5-15) Blood Urea Nitrogen 12 mg/dL (7-18) Creatinine 0.7 MG/DL (0.55-1.30) Estimat Glomerular Filtration Rate > 60 mL/min (>60) Glucose Level 170 MG/DL (74-106) #H Calcium Level 8.6 MG/DL (8.5-10.1) Test 06/19/20 16:31 POC Whole Blood Glucose 144 MG/DL (74-106) H Intake and Output 06/18/20 06/19/20 19:00 07:00 Intake Total 960 ml 810 ml Balance 960 ml 810 ml Intake Oral 960 ml 450 ml Other 360 ml # Voids 2 2 Objective PHYSICAL EXAMINATION: GENERAL: The patient is well-developed and well-nourished female, in moderate abdominal pain distress. HEENT: Eyes, pupils are equal and responsive to light and accommodation. Extraocular movements are intact. NECK: Supple without lymphadenopathy. CHEST: Lungs are clear to auscultation bilaterally without wheezes or rales. CARDIOVASCULAR: Regular rate. S1 and S2 are normal without murmurs, rubs, or gallops. ABDOMEN: Soft, nontender, nondistended. Positive bowel sounds. No evidence of hepatosplenomegaly. Currently, no rebound or guarding noted. EXTREMITIES: Negative for clubbing, cyanosis, or edema. RECTAL/GENITAL: Not performed. NEUROLOGIC: Cranial nerves II through XII are grossly intact without focal deficits. Motor strength is 5/5 bilaterally. Deep tendon reflexes are 2+ plantar. Assessment/Plan Assessment/Plan ASSESSMENT: This is a 79-year-old female. 1. COVID-19 positive. 2. Bilateral pneumonia. 3. Abdominal pain. 4. Diabetes type 2. 5. Hypertension. 6. Renal failure. 7. Glaucoma. 8. Urinary frequency. 9. Hypoglycemia TREATMENT: 1. COVID-19/bilateral pneumonia. An Infectious Disease consultation has been obtained with Dr. Ahuja . A Pulmonary consultation has been obtained with Dr. Ulloa. Follow recommendations of Pulmonary and Infectious Diseases. ABX=S/P ceftriaxone. continue Decadron day #08/02 2. Abdominal pain, this may be secondary to COVID-19. The patient is currently requesting morphine for abdominal pain. A urine culture is pending. 3. Diabetes type 2. decrease 70/30 insulin. continue NovoLog sliding scale 4. Hypertension. The patient is currently receiving p.r.n. hydralazine. 5. Renal failure. Nephrology consultation has been obtained with Dr. Reeves. 6. Glaucoma. Continue eye drops as above. Isael Hutton MD Jun 19, 2020 18:48
--- NOTE | 2020-06-19 19:22 | NUR ---
NURSE NOTES: Received order to d/c home.belongings list given as well as discharge instructions. IV removed prior to d/c. pt's grand daughter will provide transportation. - incoming nurse Ronda GARNER is aware.
--- NOTE | 2020-06-19 19:38 | NUR ---
NURSE NOTES: Patient sitting on bed, waiting for her meat pickler (granddaughter). Call light in reach. Bed in lowest and lock engaged. Will continue plan of care.
[2020-06-19 20:00] VITALS: BP 126/57
--- NOTE | 2020-06-19 20:24 | NUR ---
NURSE NOTES: Patient wheeled to the lobby assisted by 2 staff. No IV access. Picked up by family with private vehicle to home.
--- NOTE | 2020-06-20 08:57 | Surgery Progress Note ---
Surgery Progress Note Subjective Additional Comments This is a late entry as patient was seen on June 19, 2020 but unfortunate was unable to login complete note from computer issue. Patient is significantly i mproved. Labs noted. Exam is benign. Patient is planned for discharge today. Okay to discharge from surgical standpoint. Follow-up outpatient with PCP. Thank you for letting participate patient's care. Objective Last 24 Hour Vital Signs Date Time Temp Pulse Resp B/P (MAP) Pulse Ox O2 Delivery O2 Flow Rate FiO2 06/19/20 20:00 98.2 72 20 126/57 (80) 95 06/19/20 17:30 Room Air 06/19/20 16:00 98.5 68 20 160/73 (102) 96 06/19/20 12:29 154/94 06/19/20 12:00 98.4 70 20 154/94 (114) 96 06/19/20 10:41 98.4 06/19/20 10:03 75 140/90 06/19/20 09:00 Room Air 06/19/20 09:00 98.3 74 16 140/90 (107) 100 I&O Intake and Output 06/19/20 06/20/20 19:00 07:00 Intake Total 360 ml 600 ml Balance 360 ml 600 ml Intake Oral 360 ml 600 ml # Voids 3 Cardiovascular: RSR Respiratory: clear Abdomen: soft, flat, non-tender, present bowel sounds Extremities: no edema, no tenderness, no cyanosis Laboratory Tests Test 06/19/20 12:05 06/19/20 16:31 POC Whole Blood Glucose 242 MG/DL (74-106) H 144 MG/DL (74-106) H Plan Problems: (1) Constipation (2) Diabetes mellitus (3) Abdominal pain Assessment & Plan: 79 female abdominal pain cramping generalized in nature. CT reviewed large hiatal hernia postsurgical changes and clips identified around the esophagus GE junction potential prior intervention for hernia. Stomach and GI otherwise noted. Secondary to the duodenum noted. Abdominal exam fairly benign labs noted. Nonobstructed. Potentially constipated. Initiate bowel regimen. Okay for diet. Will follow with serial abdominal exams. Thank you let me participate patient's care Redemonstration of large hiatal hernia, possibly paraesophageal in nature. Correlate with dedicated chest imaging and/or esophagram for better characterization. Postsurgical clips are seen adjacent to the distal esophagus and at the GE junction, correlate with surgical history. Prominent bilateral groundglass opacities of the visualized thorax are noted. Findings may represent multifocal infection. Typical and atypical etiologies can be considered. Aspiration may also be an etiology of these findings. There is no pleural effusion of the visualized lung bases. Coronary artery calcification is noted. Solid organ evaluation is limited due to noncontrast technique. Patient is status post cholecystectomy. The unenhanced liver is grossly unremarkable. A stable 0.6 cm right posterior perihepatic nodule is identified in image 38 series 3. The pancreas demonstrates diffuse parenchymal atrophy, without pancreatic ductal dilatation. The spleen is unremarkable. There is bilateral adrenal gland thickening and nodularity with probable 1.5 cm right adrenal adenoma. Correlation with abdominal MRI is recommended for definitive characterization. There is no hydronephrosis or nephrolithiasis of the kidneys. Evaluation of the bowel is limited due to lack of oral contrast. Large hiatal hernia, possibly paraesophageal in nature as described above. Stomach is otherwise under distended, limiting evaluation. Postsurgical clips are seen in the region of the second portion of the duodenum. High density localized to the first portion of the duodenum, image 39 series 3, is nonspecific and may represent focal blood products. Consider correlation with the EGD for better characterization. There is no small bowel obstruction. The appendix is not inflamed. There is mild stool burden of the colon which limits evaluation of the colonic mucosa. Prominent soft tissue thickening is noted at the rectum near the anal verge. Correlation with colonoscopy is recommended to exclude neoplasm in this location, versus other proctitis. There is no ascites, free air, or loculated fluid collection. Mild haziness of the small bowel mesentery stable. Small volume nodes are identified, particularly along the pelvic sidewalls, left greater than right. Urinary bladder is relatively underdistended, living evaluation. Tiny nodular focus along the anterior superior margin of the urinary bladder, image 121 series 3, is unchanged, likely related to urachal remnant. Patient is status post hysterectomy. There is no aneurysm of the abdominal aorta. Moderate to severe atheromatous changes are identified. Stable soft tissue infiltrative changes are noted along the anterior superficial soft tissues. Correlate for injection. Cellulitis is considered less likely given chronicity. Degenerative changes of the visualized thoracolumbar spine are identified. There is redemonstration of grade 1 anterolisthesis of L3 on L4 and severe height loss at L4-L5 levels. Correlate with spinal MRI as clinically warranted. IMPRESSION: Prominent bilateral groundglass opacities of the visualized thorax. Findings may represent multifocal infection. Typical and atypical etiologies can be considered, include COVID pneumonia. Correlate with dedicated CT of the chest for better characterization. Follow to resolution with repeat chest CT in 6 weeks. Aspiration may also be an etiology of these findings as well, given the large hiatal hernia, possibly paraesophageal in morphology. Postsurgical clips are seen in the region of the second portion of the duodenum. High density localized to the first portion of the duodenum, image 39 series 3, is nonspecific and may represent focal blood products. Consider correlation with the EGD for better characterization. Correlate for signs and symptoms of GI bleeding. Prominent soft tissue thickening is noted at the rectum near the anal verge. Correlation with colonoscopy is recommended to exclude neoplasm in this location, versus other proctitis. Stable soft tissue infiltrative changes are noted along the anterior superficial soft tissues. Correlate for injection. Soft tissue cellulitis is considered less likely. Clinical correlation is recommended. A nonspecific indeterminate right posterior perihepatic nodule measuring 0.6 cm is stable. Follow-up CT abdomen pelvis is recommended in 6 months to evaluate for stability of these findings. (4) Pneumonia due to COVID-19 virus Assessment & Plan: Covid positive treatment as per amisha and RIO will follow thank you (5) Hypertension (6) ACS (acute coronary syndrome) (7) Major depression (8) PUD (peptic ulcer disease) (9) GERD (gastroesophageal reflux disease) (10) DDD (degenerative disc disease), lumbar (11) Radiculopathy of lumbar region (12) Accelerated hypertension (13) Vitreous hemorrhage of right eye (14) Diabetes mellitus type II, uncontrolled (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 DelmyTaco Jun 20, 2020 08:57
--- NOTE | 2020-06-23 16:39 | Discharge Summary ---
Discharge Summary Discharge Summary _ Date of admission: 06/11/2020 Date of discharge: 06/19/[address] Trejo History of Present Illness and Brief Hospital Course Ms. Cedillo is a 79-year-old female with history of high blood pressure who presented to the ED for evaluation of progressively worsening abdominal pain x1 week. Patient reported diffuse abdominal pain with urinary frequency and urgency but denied fever, chills, hematuria, cough, congestion, and chest pain. CT of abdomen showed prominent bilateral groundglass opacities, and prominent soft tissue thickening at the rectum near the anal verge. Chest x-ray was remarkable for bilateral interstitial infiltrates. She tested positive for COVID-19 via rapid gene assay in the ER. She was admitted to the hospital for further management. Despite her diagnosis of COVID-19, remdesivir was not given due to stable oxygenation. She did receive steroids initially. She initially presented with signs of acute on chronic renal failure. She was given IV fluids and her renal parameters and electrolytes were closely monitored. The initial laboratory studies revealed signs of UTI. The follow-up urine culture grew Sherry albicans and she was treated with fluconazole for vaginal yeast infection. Throughout her hospitalization, her prognosis remained good. Her oxygen saturation remained stable on room air despite being diagnosed with COVID-19. She was treated with UTI and she was medically stable for discharge on 06/19/2020. She was discharged home in stable condition. She was instructed to continue COVID-19 isolation through 06/21/2020. Consultants: Pulmonology Dr. Ulloa Surgery Dr. Brock Infectious disease Dr. Ahuja Nephrology Dr. Hill Discharge Condition Improved and stable Final diagnoses COVID-19 pneumonia Sherry albicans UTI Vaginal yeast infection Abdominal pain Diabetes 2 Hypertension Acute on chronic renal failure History of glaucoma Urinary frequency Hypoglycemia History of GERD I have been assigned to dictate discharge summary for this account. I was not involved in the patient's management Sriram Iqbal Jun 23, 2020 16:39
== END 2020-06-19 20:20 | disposition home or self-care (01) | DRG 177 ==
LOC: EMR 03:58 → 4E 05:37 → EDBEDREQ 05:52 → 4E 06-14 10:00
DX: U07.1 COVID-19 (principal); J12.82 Pneumonia due to coronavirus disease 2019; N17.9 Acute kidney failure, unspecified; I13.0 Hypertensive heart and chronic kidney disease with heart failure and stage 1 through stage 4 chronic kidney disease, or unspecified chronic kidney disease; I24.9 Acute ischemic heart disease, unspecified; B37.49 Other urogenital candidiasis; I16.0 Hypertensive urgency; I50.9 Heart failure, unspecified; N18.9 Chronic kidney disease, unspecified; E11.65 Type 2 diabetes mellitus with hyperglycemia; E11.22 Type 2 diabetes mellitus with diabetic chronic kidney disease; Z88.6 Allergy status to analgesic agent; Z88.2 Allergy status to sulfonamides; H40.9 Unspecified glaucoma; Z90.49 Acquired absence of other specified parts of digestive tract; M51.16 Intervertebral disc disorders with radiculopathy, lumbar region; Z79.4 Long term (current) use of insulin; R35.0 Frequency of micturition; K59.00 Constipation, unspecified; K44.9 Diaphragmatic hernia without obstruction or gangrene; K27.9 Peptic ulcer, site unspecified, unspecified as acute or chronic, without hemorrhage or perforation; K21.9 Gastro-esophageal reflux disease without esophagitis; H43.11 Vitreous hemorrhage, right eye; N76.0 Acute vaginitis
CPT/HCPCS: 36415; 71045; 72020; 72202; 74176; 80048; 80053; 80061; 80076; 81003; 82306; 82607; 82728; 82746; 82962; 83036; 83540; 83550; 83690; 83735; 83880; 84100; 84300; 84550; 85007; 85025; 85379; 86140; 87086; 93970; 96361; 96365; 96367; 96375; 96376; 99285; C9399; J1815; J2405; J7030; U0002